=== PATIENT | male | born 1955 | race Caucasian/White ===

== ENCOUNTER 2016-07-23 | Outpatient (CLI) | payer MEDICARE, MEDICAID | END 2016-07-23 16:19 | disposition critical access hospital (66) | DX: M54.5 Low back pain (principal) | CPT/HCPCS: A0425; A0429 ==

== ENCOUNTER 2016-07-23 16:42 | Emergency (ER) | payer MEDICARE, MEDICAID ==
[2016-07-23] MEDS ORDERED: DEXAMETHASONE 10 MG/ML VIAL IVP ONE (17:54)
[2016-07-23] MEDS ORDERED: ACETAMINOPHEN 1,000 MG/100 ML 100 ML IV STA (17:54)
[2016-07-23] MEDS ORDERED: DEXAMETHASONE 10 MG/ML VIAL ONE (18:28)
[2016-07-23] MEDS ORDERED: ACETAMINOPHEN 1,000 MG/100 ML 100 ML IV ONE (18:28)
== END 2016-07-23 19:45 | disposition home or self-care (01) ==
DX: M54.5 Low back pain (principal); G89.29 Other chronic pain; R07.9 Chest pain, unspecified; I25.10 Atherosclerotic heart disease of native coronary artery without angina pectoris; K21.9 Gastro-esophageal reflux disease without esophagitis; F17.200 Nicotine dependence, unspecified, uncomplicated
CPT/HCPCS: 36415; 71010; 80053; 83690; 84484; 85025; 93005; 93010; 96374; 96375; 99283; 99284; J0131

== ENCOUNTER 2016-10-11 08:00 | Outpatient (CLI) | payer MEDICARE, MEDICAID | END 2016-10-11 08:01 | DX: R07.89 Other chest pain (principal) ==

== ENCOUNTER 2016-10-11 14:45 | Outpatient (CLI) | payer MEDICAID, MEDICARE | END 2016-10-11 15:00 | disposition home or self-care (01) | DX: R07.9 Chest pain, unspecified (principal) ==

== ENCOUNTER 2016-11-24 10:40 | Emergency (ER) | payer MEDICARE, MEDICAID ==
[2016-11-24] MEDS ORDERED: LIDOCAINE PATCH 5% TOP STA (12:10)
[2016-11-24] MEDS ORDERED: ACETAMINOPHEN 500 MG TABLET PO STA (12:12)
[2016-11-24] MEDS ORDERED: LIDOCAINE PATCH 5% TOP ONE (12:13)
[2016-11-24] MEDS ORDERED: ACETAMINOPHEN 500 MG TABLET PO ONE (12:13)
--- NOTE | 2016-11-24 12:26 | ED Physician Documentation ---
History of Present Illness - Stated complaint Stated Complaint: BACK PX - Chief complaint Chief Complaint: Back Pain - Additonal information Additional information: hx from pt and from call to his prior pain clinic 61 male long hx back pain since working for [employer] s/p diskectomy in 2001 chronic back pain and chronic L sided numbness to ER with back pain and out of meds - pain is same as his chronic pain, no new numbness or weakness, no incont, no abd pain pt tells me he cannot go to the pain clinic due to transportation but when i call the pain clinic and spoke to Dr Burch she advises that he was dismissed from the clinic late Jul or August due to neg tox screens indicating misuse or diversion of narcotics - pt was referred back to his [facility] who also declined to rx narcotics, and pt has been to out ER once before and advised that we cannot rx narcotics for this issue pt tells me that he has a hx of CAD and that if he does not get narcotics he will have a heart attack - he is not having chest pain right now Review of Systems Constitutional: denies: Fever, Chills Cardiac: denies: Chest pain / pressure Respiratory: denies: Dyspnea GI: denies: Abdominal Pain : denies: Incontinent Musculoskeletal: reports: Back pain Neurologic: reports: Numbness (L side of body not new). denies: Focal weakness Endocrine: denies: Easy bruising / bleeding Immunocompromised: denies: Immunocompromised PD PAST MEDICAL HISTORY - Past Medical History Cardiovascular: Coronary artery disease Respiratory: None Neuro: None Endocrine/Autoimmune: None GI: GERD : None HEENT: None Psych: None Musculoskeletal: Chronic back pain Derm: None - Past Surgical History Past Surgical History: Yes Ortho: Spine surgery Cardiovascular: Coronary stent - Present Medications Home Medications: Ambulatory Orders Medication Instructions Recorded Confirmed Aspirin [Bakari Chewable Aspirin] 81 mg ORAL DAILY 01/17/14 09/20/15 Clopidogrel Bisulfate [Plavix] 0 mg ORAL DAILY 01/17/14 09/20/15 Lisinopril [Zestril] 5 mg ORAL DAILY 01/17/14 01/17/14 Metoprolol Succinate [Toprol Xl] 25 mg ORAL BID 01/17/14 01/17/14 Morphine ER 2 tab ORAL BID 01/17/14 01/17/14 Nitroglycerin 0.4 mg SL Q5MIN PRN 01/17/14 01/17/14 Oxycodone HCl/Acetaminophen 1 tab ORAL Q6HR PRN 01/17/14 01/17/14 [Oxycodone-Acetaminophen 10-325] Famotidine [Pepcid] 20 mg PO BID #60 tablet 09/20/15 Atorvastatin [Lipitor] 40 mg QPM 11/24/16 11/24/16 Lidocaine Patch 5% [Lidoderm Patch] 1 each TOP DAILY PRN #10 patch 11/24/16 - Allergies Allergies/Adverse Reactions: Allergies Allergy/AdvReac Type Severity Reaction Status Date / Time No Known Drug Allergies Allergy Verified 11/24/16 10:51 - Social History Does the pt smoke?: Yes Smoking Status: Current every day smoker - Immunizations Immunizations are current?: No Immunizations: TDAP >10years/unknown PD ED PE NORMAL - Vitals Vital signs reviewed: Yes - Cardiac Cardiac: RRR - Respiratory Respiratory: No respiratory distress, Clear bilaterally - Abdomen Abdomen: Soft, Non tender, Other (no pulsatile mass) - Back Back: No spinal TTP (no redness swelling warmth, lumbar scar, diffuse TTP and limited ROM) - Derm Derm: Normal color - Neuro Neuro: No motor deficit (hip flex knee ext foot dorsi plantar and great toe ext 5/5 though pain does limit effort, no clonus, denies incont and saddle anesthesia) Results - Vitals Vitals: Vital Signs - 24 hr 11/24/16 11/24/16 10:48 11:23 Temperature 36.7 C Heart Rate 71 67 Respiratory 19 18 Rate Blood Pressure 159/104 H O2 Saturation 98 98 Oxygen O2 Source Room air PD MEDICAL DECISION MAKING - ED course ED course: spoke to [facility] Burch - pt was dismissed from their practice due to neg tox screens indicating misuse or diversion next closest pain clinic would be [facility] for pain management in [place] unfortunately there is very little I [facility] - he does not have an apparent acute emergency though he is in pain will rx lidocaine patches and suggest pt ask PMD for a referral to the other pain clinic Departure - Departure Disposition: 01 Home, Self Care Clinical Impression: Back pain Qualifiers: Back pain location: low back pain Chronicity: chronic Back pain laterality: unspecified Sciatica presence: without sciatica Qualified Code(s): M54.5 - Low back pain; G89.29 - Other chronic pain Condition: Fair Instructions: ED Low Back Pain Injury, ED Chronic Pain Management Follow-Up: [facility] [Provider Group] Prescriptions: Lidocaine Patch 5% [Lidoderm Patch] 1 each TOP DAILY PRN #10 patch PRN Reason: Pain Comments: I spoke to Dr Burch at the [facility] and unfortunately you cannot be seen there any more The next closest pain clinic is [facility] - please ask your PMD for a referral. The emergency department cannot prescribe narcotics for chronic pain. I did prescribed lidocaine patches to help ease your discomfort. I am sorry there is not more I can do for you today Please follow up with your PMD And please get your blood pressure rechecked when you see your PMD - it was high today
[2016-11-24 12:37] VITALS: BP 152/95
== END 2016-11-24 12:53 | disposition home or self-care (01) ==
LOC: ED 10:40
DX: M54.5 Low back pain (principal); G89.29 Other chronic pain; R03.0 Elevated blood-pressure reading, without diagnosis of hypertension; I25.10 Atherosclerotic heart disease of native coronary artery without angina pectoris; Z95.5 Presence of coronary angioplasty implant and graft; Z79.02 Long term (current) use of antithrombotics/antiplatelets; Z79.82 Long term (current) use of aspirin; F17.200 Nicotine dependence, unspecified, uncomplicated
CPT/HCPCS: 99283; A9270

== ENCOUNTER 2017-01-25 17:17 | Outpatient (CLI) | payer MEDICARE, MEDICAID | END 2017-01-25 17:18 | disposition critical access hospital (66) | LOC: EMS 17:17 | PROVIDERS: ATTEND Surgery | DX: M54.5 Low back pain (principal) | CPT/HCPCS: A0425; A0429 ==

== ENCOUNTER 2017-01-25 17:39 | Emergency (ER) | payer MEDICARE, MEDICAID ==
[2017-01-25] MEDS ORDERED: PROMETHAZINE 25 MG/1 ML VIAL IM STA (19:09)
[2017-01-25] MEDS ORDERED: HYDROmorphone 1 MG/ML SYRINGE IM STA (19:09)
[2017-01-25] MEDS ORDERED: HYDROmorphone 1 MG/ML SYRINGE ONE ×3 (19:33→21:19)
[2017-01-25] MEDS ORDERED: PROMETHAZINE 25 MG/1 ML VIAL ONE (19:33)
[2017-01-25] MEDS ORDERED: SODIUM CHLORIDE FLUSH 0.9% 10 ML SYRINGE IVP ONE ×2 (19:34→21:20)
[2017-01-25 20:31] LABS: BILIRUBIN,URINE NEGATIVE (NEGATIVE)
[2017-01-25 20:43] LABS: UA CHARGE (STRIP ONLY) YES; UR CULTURE IF IND NOT INDICATED
[2017-01-25] MEDS ORDERED: HYDROmorphone 1 MG/ML SYRINGE IVP STA (21:10)
[2017-01-25] MEDS ORDERED: DEXAMETHASONE 10 MG/ML VIAL IVP STA (21:10)
[2017-01-25] MEDS ORDERED: diazePAM INJ 5 MG/ML SYRINGE IVP STA (21:11)
[2017-01-25] MEDS ORDERED: DEXAMETHASONE 10 MG/ML VIAL ONE (21:20)
[2017-01-25] MEDS ORDERED: diazePAM INJ 5 MG/ML SYRINGE ONE (21:20)
[2017-01-25] MEDS ORDERED: oxyCODONE/ACET 5/325 Prepack 4 PO STA (22:32)
--- NOTE | 2017-01-25 22:35 | ED Physician Documentation ---
PD HPI BACK PAIN - Stated complaint Stated Complaint: BACK PX - Chief complaint Chief Complaint: Back Pain - History obtained from History obtained from: Patient - History of Present Illness Timing - onset: Today Timing - details: Still present Location: Lower, Left Quality: Pain Associated symptoms: Numbness. No: Fever, Weakness, Incontinent of urine Worsened by: Movement, Lifting Similar symptoms before: Diagnosis (Previously has been a pain clinic patient with chronic back pain.) - Additional information Additional information: The patient is a 61-year-old male who presents with lower back pain radiating down his left leg. The exacerbation of pain started today when he bent over in the shower. He denies any other recent back injury. He denies fever or urinary incontinence. He has a long history of low back pain since a back injury in 2004, and is status post lumbar surgery. Previously has been a pain clinic patient, receiving morphine and Percocet, but has not been prescribed pain medication for the past 6 months. Review of Systems Constitutional: denies: Fever Nose: denies: Congestion Cardiac: denies: Chest pain / pressure Respiratory: denies: Dyspnea, Cough GI: denies: Abdominal Pain, Nausea, Vomiting : denies: Dysuria, Incontinent Skin: denies: Rash Musculoskeletal: reports: Back pain Neurologic: reports: Numbness (Chronic sensory deficit in both lower extremities.). denies: Focal weakness, Headache PD PAST MEDICAL HISTORY - Past Medical History Cardiovascular: Coronary artery disease, [place] Respiratory: None Neuro: None Endocrine/Autoimmune: None GI: GERD : None HEENT: None Psych: None Musculoskeletal: Chronic back pain Derm: None - Past Surgical History Past Surgical History: Yes Ortho: Spine surgery Cardiovascular: Coronary stent - Present Medications Home Medications: Ambulatory Orders Medication Instructions Recorded Confirmed Aspirin [Bakari Chewable Aspirin] 81 mg ORAL DAILY 01/17/14 01/25/17 Clopidogrel Bisulfate [Plavix] 0 mg ORAL DAILY 01/17/14 01/25/17 Lisinopril [Zestril] 5 mg ORAL DAILY 01/17/14 01/25/17 Metoprolol Succinate [Toprol Xl] 25 mg ORAL BID 01/17/14 01/25/17 Morphine ER 2 tab ORAL BID 01/17/14 01/25/17 Nitroglycerin 0.4 mg SL Q5MIN PRN 01/17/14 01/25/17 Oxycodone HCl/Acetaminophen 1 tab ORAL Q6HR PRN 01/17/14 01/25/17 [Oxycodone-Acetaminophen 10-325] Famotidine [Pepcid] 20 mg PO BID #60 tablet 09/20/15 01/25/17 Atorvastatin [Lipitor] 40 mg QPM 11/24/16 01/25/17 Lidocaine Patch 5% [Lidoderm Patch] 1 each TOP DAILY PRN #10 patch 11/24/1607/13 Cyclobenzaprine [Flexeril] 10 mg PO TID PRN #20 tablet 01/25/17 oxyCODONE/ACET 5/325 [Percocet 5 1 - 2 tab PO Q4-6H PRN #20 tablet 01/25/17 mg/325 mg] - Allergies Allergies/Adverse Reactions: Allergies Allergy/AdvReac Type Severity Reaction Status Date / Time No Known Drug Allergies Allergy Verified 11/24/16 10:51 - Social History Does the pt smoke?: Yes Smoking Status: Current every day smoker - Immunizations Immunizations are current?: No Immunizations: TDAP >10years/unknown PD ED PE NORMAL - Vitals Vital signs reviewed: Yes (normal) - General General: Alert and oriented X 3, Well developed/nourished, Other (Somewhat difficult to understand because of strong Eastern accent.) - HEENT HEENT: Atraumatic, EOMI, Pharynx benign - Neck Neck: Supple, no meningeal sign, No bony TTP, No JVD - Cardiac Cardiac: RRR, No murmur - Respiratory Respiratory: No respiratory distress, Clear bilaterally - Abdomen Abdomen: Soft, Non tender - Back Back: No CVA TTP, Other (There is tenderness to palpation in the paralumbar region bilaterally, more on the left than the right.) - Derm Derm: No rash - Extremities Extremities: No edema, No calf tenderness / cord - Neuro Neuro: Alert and oriented X 3, No motor deficit, No sensory deficit (Decreased light touch sensation in the lower extremities bilaterally, although it does not seem to follow a dermatomal pattern. Sacral sensation is intact.) Results - Vitals Vitals: Oxygen O2 Source Room air - Labs Labs: Laboratory Tests 01/25/17 20:12 Urine Color YELLOW Urine Clarity CLEAR Urine pH 6.0 Ur Specific [place] <=1.005 Urine Protein NEGATIVE Urine Glucose (UA) NEGATIVE Urine Ketones NEGATIVE Urine Occult Blood NEGATIVE Urine Nitrite NEGATIVE Urine Bilirubin NEGATIVE Urine Urobilinogen 0.2 (NORMAL) Ur Leukocyte Esterase NEGATIVE Ur Microscopic Review NOT INDICATED Urine Culture Comments NOT INDICATED PD MEDICAL DECISION MAKING - ED course Complexity details: reviewed old records, reviewed results, re-evaluated patient , considered differential, d/w patient, d/w family ED course: The patient's presentation is significant for an acute exacerbation of recurrent low back pain. His presentation does not suggest epidural abscess, acute spinal stenosis, or cauda equina syndrome. Treatment in the emergency department included administration of hydromorphone 2 mg IM with Phenergan 12.5 mg IM. Because his symptoms did not significantly improve an IV was established , and dexamethasone 10 mg was administered IV, along with hydromorphone 1 mg IV , and diazepam 5 mg IV. This did significantly improve the patient's discomfort. He is being discharged with prescriptions for Percocet and for Flexeril. 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 Departure - Departure Disposition: 01 Home, Self Care Clinical Impression: Back pain Qualifiers: Back pain location: low back pain Chronicity: acute Back pain laterality: left Sciatica presence: without sciatica Qualified Code(s): M54.5 - Low back pain Condition: Stable Instructions: ED Low Back Pain Injury Follow-Up: [facility] [Provider Group] [facility] [Provider Group] [facility] [Provider Group] Prescriptions: Cyclobenzaprine [Flexeril] 10 mg PO TID PRN #20 tablet PRN Reason: Spasms oxyCODONE/ACET 5/325 [Percocet 5 mg/325 mg] 1 - 2 tab PO Q4-6H PRN #20 tablet PRN Reason: Pain Comments: Apply ice pack to your lower back intermittently for the next 3 or 4 days. You can use ibuprofen, up to 800 mg 3 times daily for the anti-inflammatory effect. You can use Percocet as prescribed if needed for pain. You can use Flexeril as prescribed if needed for muscle spasm. Let pain be your guide to activity level. Follow-up with primary physician within 1-2 weeks. Call to schedule an appointment. Return to the emergency department if you develop increasing back pain, increasing numbness or weakness, urinary incontinence, or otherwise worsening symptoms. Discharge Date/Time: 01/25/17 23:44
[2017-01-25] MEDS ORDERED: oxyCODONE/ACET 5/325 Prepack 4 PO ONE (22:49)
[2017-01-25 22:54] VITALS: BP 114/75
== END 2017-01-25 23:44 | disposition home or self-care (01) ==
LOC: EDUNIT# → ED 17:39
DX: M54.5 Low back pain (principal); I25.10 Atherosclerotic heart disease of native coronary artery without angina pectoris; G89.29 Other chronic pain; F17.200 Nicotine dependence, unspecified, uncomplicated; Z95.5 Presence of coronary angioplasty implant and graft; Z79.82 Long term (current) use of aspirin
CPT/HCPCS: 81003; 96372; 96374; 96375; 99284; J1170; 81001; 87086

== ENCOUNTER 2017-03-02 12:36 | Outpatient (CLI) | payer MEDICARE, MEDICAID | END 2017-03-02 12:37 | disposition critical access hospital (66) | LOC: EMS 12:36 | PROVIDERS: ATTEND Surgery | DX: M54.5 Low back pain (principal) | CPT/HCPCS: A0425; A0429 ==

== ENCOUNTER 2017-03-02 12:57 | Emergency (ER) | payer MEDICARE, MEDICAID ==
--- NOTE | 2017-03-02 12:59 | ED Physician Documentation ---
PD HPI BACK PAIN - Stated complaint Stated Complaint: BACK PX - History obtained from History obtained from: Patient, EMS - History of Present Illness Timing - onset: How many days ago (The patient says he has had an increase over baseline of his back pain for the last several days. He has no noted injury to it currently. He has had prior back pain since 2004 from a work injury he says. He has had couple of surgeries on his back since that time. He does have chronic numbness in the right leg from the surgeries and the nerve impingement prior to that. He has also some numbness in the left leg. He states he is now having pain down the left lateral side of the leg into the dorsolateral part of the foot. He denies any noted weakness of it. He has not had any bowel or bladder dysfunction. He denies any rash or sores. He has not had any skin sores. Denies any fever. He has had similar exacerbations with ER visits in end of January and also in October and prior to that June. He had been a patient of the [facility] and also the [facility] pain clinic. He states he does not like the [facility] clinic. He does not get any narcotic pain medicines prescribed regularly at this time. He does get his blood pressure and cholesterol medicines from the [facility] apparently.) Timing - duration: Days Timing - details: Gradual onset, Still present, Waxing and waning Location: Lower, Left Quality: Pain, Spasm Associated symptoms: Numbness (chronic right lateral leg and foot; the past few months left lateral foot and lower leg.). No: Fever, Weakness, Incontinent of urine, Hematuria Improves with: Rest Worsened by: Movement Contributing factors: Twisting. No: Trauma, IVDA Similar symptoms before: Diagnosis (lumbar disc problems and prior lumbar back surgeries x 2 years ago.) Recently seen: Emergency Dept (1 month ago for similar. Denies recent visit with PCP.) Review of Systems Constitutional: denies: Fever, Chills, Myalgias Nose: denies: Rhinorrhea / runny nose, Congestion Throat: denies: Sore throat Cardiac: denies: Chest pain / pressure, Palpitations, Pedal edema, Calf pain Respiratory: denies: Cough GI: denies: Abdominal Pain, Nausea, Vomiting, Diarrhea : denies: Dysuria, Incontinent Skin: denies: Rash, Lesions Neurologic: reports: Numbness. denies: Focal weakness, Altered mental status, Headache PD PAST MEDICAL HISTORY - Past Medical History Cardiovascular: Coronary artery disease, [place] Respiratory: None Neuro: None Endocrine/Autoimmune: None GI: GERD : None HEENT: None Psych: None Musculoskeletal: Chronic back pain Derm: None - Past Surgical History Past Surgical History: Yes Ortho: Spine surgery Cardiovascular: Coronary stent - Present Medications Home Medications: Ambulatory Orders Medication Instructions Recorded Confirmed Aspirin [Bakari Chewable Aspirin] 81 mg ORAL DAILY 01/17/14 03/02/17 Clopidogrel Bisulfate [Plavix] 0 mg ORAL DAILY 01/17/14 03/02/17 Lisinopril [Zestril] 5 mg ORAL DAILY 01/17/14 03/02/17 Metoprolol Succinate [Toprol Xl] 25 mg ORAL BID 01/17/14 03/02/17 Nitroglycerin 0.4 mg SL Q5MIN PRN 01/17/14 03/02/17 Famotidine [Pepcid] 20 mg PO BID #60 tablet 09/20/15 03/02/17 Atorvastatin [Lipitor] 40 mg QPM 11/24/16 03/02/17 Cyclobenzaprine [Flexeril] 10 mg PO TID PRN #20 tablet 01/25/17 03/02/17 Dexamethasone [Decadron] 4 mg PO DAILY #5 tablet 03/02/17 Diazepam 5 mg PO TID PRN #20 tablet 03/02/17 Oxycodone HCl/Acetaminophen 1 each PO TID PRN #25 tablet 03/02/17 [Percocet 7.5-325 mg Tablet] - Allergies Allergies/Adverse Reactions: Allergies Allergy/AdvReac Type Severity Reaction Status Date / Time No Known Drug Allergies Allergy Verified 11/24/16 10:51 - Social History Does the pt smoke?: Yes Smoking Status: Current every day smoker - Immunizations Immunizations are current?: No Immunizations: TDAP >10years/unknown PD ED PE NORMAL - Vitals Vital signs reviewed: Yes - General General: Alert and oriented X 3, Well developed/nourished, Other (appears in discomfort and guarding motion of the low back. ) - Cardiac Cardiac: RRR, No murmur - Respiratory Respiratory: Clear bilaterally - Abdomen Abdomen: Normal bowel sounds, Soft, Non tender, Non distended - Back Back: No CVA TTP, Other (no rash nor sores; tender in upper to mid lumbar area both sides, but more on left sided muscles. ) - Derm Derm: Normal color, Warm and dry, No rash - Extremities Extremities: No tenderness to palpate, Normal ROM s pain, No edema, No calf tenderness / cord - Neuro Neuro: No motor deficit, Normal speech, Other (2+DTRs at knees and ankles. Decreased sensation to touch and pain lateral and anterior right lower leg and dorsum/side foot. Less sensation to touch lateral lower leg and lateral foot, but sensation to pinprick present. ) Results - Vitals Vitals: Oxygen O2 Source Room air PD MEDICAL DECISION MAKING - ED course Complexity details: reviewed old records, considered differential (dermatomal symptoms left lower leg, c/w sciatica, but no red flags to suggest need for emergent MRI. To see PCP and get referral. He says he cannot do closed MRIs and needs open MRI due to claustrophobia. ), d/w patient Departure - Departure Disposition: 01 Home, Self Care Clinical Impression: Back pain Qualifiers: Back pain location: low back pain Chronicity: acute Back pain laterality: left Sciatica presence: with sciatica Sciatica laterality: sciatica of left side Qualified Code(s): M54.42 - Lumbago with sciatica, left side Condition: Stable Record reviewed to determine appropriate education?: Yes Instructions: ED Sciatica Follow-Up: [facility] [Provider Group] Prescriptions: Dexamethasone [Decadron] 4 mg PO DAILY #5 tablet Diazepam 5 mg PO TID PRN #20 tablet PRN Reason: Spasms Oxycodone HCl/Acetaminophen [Percocet 7.5-325 mg Tablet] 1 each PO TID PRN #25 tablet PRN Reason: Pain Comments: Make an appointment with your primary care for follow-up in the next week or so. Call today for an appointment. Decadron anti-inflammatory daily for 5 more days. Use diazepam as needed for muscle spasms. Percocet if needed for pains. Heat and gentle stretching for the low back. Follow-up with your primary care for possible physical therapy. They could also consider whether imaging, such as MRI, would be useful. Discharge Date/Time: 03/02/17 15:40
[2017-03-02] MEDS ORDERED: HYDROmorphone 1 MG/ML SYRINGE IM STA (13:49)
[2017-03-02] MEDS ORDERED: KETOROLAC 60 MG/2 ML VIAL IM STA (13:49)
[2017-03-02] MEDS ORDERED: diazePAM 5 MG TABLET PO STA (13:49)
[2017-03-02] MEDS ORDERED: ONDANSETRON ODT 4 MG TABLET TL STA (13:49)
[2017-03-02] MEDS ORDERED: HYDROmorphone 1 MG/ML SYRINGE ONE ×2 (13:59)
[2017-03-02] MEDS ORDERED: diazePAM 5 MG TABLET PO ONE (14:00)
[2017-03-02] MEDS ORDERED: KETOROLAC 60 MG/2 ML VIAL ONE (14:00)
[2017-03-02] MEDS ORDERED: ONDANSETRON ODT 4 MG TABLET ONE (14:00)
[2017-03-02 15:08] VITALS: BP 144/96
[2017-03-02] MEDS ORDERED: oxyCOD/ACETAMIN 5 MG/325 MG TABLET PO STA (15:29)
[2017-03-02] MEDS ORDERED: oxyCOD/ACETAMIN 5 MG/325 MG TABLET PO ONE (15:37)
== END 2017-03-02 15:40 | disposition home or self-care (01) ==
LOC: EDUNIT# → ED 12:57
DX: M54.42 Lumbago with sciatica, left side (principal); I25.10 Atherosclerotic heart disease of native coronary artery without angina pectoris; I25.2 Old myocardial infarction; K21.9 Gastro-esophageal reflux disease without esophagitis; Z79.82 Long term (current) use of aspirin; F17.200 Nicotine dependence, unspecified, uncomplicated
CPT/HCPCS: 96372; 99283; A9270; J1170; Q0162

== ENCOUNTER 2017-03-17 13:38 | Outpatient (CLI) | payer MEDICARE, MEDICAID | END 2017-03-17 13:39 | disposition critical access hospital (66) | LOC: EMS 13:38 | PROVIDERS: ATTEND Surgery | DX: R07.9 Chest pain, unspecified (principal) | CPT/HCPCS: A0425; A0427 ==

== ENCOUNTER 2017-03-17 13:57 | Observation (INO) | payer MEDICARE, MEDICAID ==
--- NOTE | 2017-03-17 14:10 | ED Physician Documentation ---
PD HPI CHEST PAIN - Stated complaint Stated Complaint: CP - Chief complaint Chief Complaint: Cardiac - History obtained from History obtained from: Patient - History of Present Illness Pain level max: 8 Pain level now: 8 Quality: Pressure, Aching, Pain Location: Substernal Radiation: Other (Nonradiating) Improved by: Nothing Worsened by: Movement, Palpation Associated symptoms: No: Shortness of air, Diaphoresis, Nausea, Vomiting, Feeling faint / dizzy, General Weakness, Palpitations, Cough Similar symptoms before: Diagnosis (Acute [place]) Recently seen: Not recently seen - Additional information Additional information: Patient is a 61-year-old male who presents to the emergency department with several hours of ongoing chest pain this morning. States that it is substernal , center of the chest, nonradiating. 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 He also states that his chronic back pain is "acting up". Does not have a primary care provider. Has not seen the pain clinic anymore. States he is out of his Percocet. Patient received aspirin, nitroglycerin and morphine from EMS without change in his pain. Normal twelve- lead EKG with EMS per report. No ST changes per EMS report. Last stent placement was 3 years ago at [facility]. Patient also states that he is not following up with cardiology and has not seen them for several years. Review of Systems Ten Systems: 10 systems reviewed and negative Constitutional: denies: Fever, Chills Ears: denies: Ear pain Nose: denies: Rhinorrhea / runny nose, Congestion Throat: denies: Sore throat Cardiac: reports: Chest pain / pressure Respiratory: denies: Cough GI: denies: Abdominal Pain, Nausea, Vomiting, Diarrhea Skin: denies: Rash Musculoskeletal: reports: Back pain (Chronic low back pain. No numbness or tingling. No loss of bowel or bladder control. Denies any IV drug use.). denies: Neck pain Neurologic: denies: Focal weakness, Numbness, Headache PD PAST MEDICAL HISTORY - Past Medical History Past Medical History: Yes Cardiovascular: Coronary artery disease, [place] Respiratory: None Neuro: None Endocrine/Autoimmune: None GI: GERD : None HEENT: None Psych: None Musculoskeletal: Chronic back pain Derm: None - Past Surgical History Past Surgical History: Yes Ortho: Spine surgery Cardiovascular: Coronary stent - Present Medications Home Medications: Ambulatory Orders Medication Instructions Recorded Confirmed Aspirin [Bakari Chewable Aspirin] 81 mg ORAL DAILY 01/17/14 03/02/17 Clopidogrel Bisulfate [Plavix] 0 mg ORAL DAILY 01/17/14 03/02/17 Lisinopril [Zestril] 5 mg ORAL DAILY 01/17/14 03/02/17 Metoprolol Succinate [Toprol Xl] 25 mg ORAL BID 01/17/14 03/02/17 Nitroglycerin 0.4 mg SL Q5MIN PRN 01/17/14 03/02/17 Famotidine [Pepcid] 20 mg PO BID #60 tablet 09/20/15 03/02/17 Atorvastatin [Lipitor] 40 mg QPM 11/24/16 03/02/17 Cyclobenzaprine [Flexeril] 10 mg PO TID PRN #20 tablet 01/25/17 03/02/17 Dexamethasone [Decadron] 4 mg PO DAILY #5 tablet 03/02/17 Diazepam 5 mg PO TID PRN #20 tablet 03/02/17 Oxycodone HCl/Acetaminophen 1 each PO TID PRN #25 tablet 03/02/17 [Percocet 7.5-325 mg Tablet] - Allergies Allergies/Adverse Reactions: Allergies Allergy/AdvReac Type Severity Reaction Status Date / Time No Known Drug Allergies Allergy Verified 03/17/17 14:06 - Social History Does the pt smoke?: Yes Smoking Status: Current every day smoker - Immunizations Immunizations are current?: No Immunizations: TDAP >10years/unknown PD ED PE NORMAL - Vitals Vital signs reviewed: Yes - General General: Alert and oriented X 3, No acute distress, Well developed/nourished - HEENT HEENT: PERRL, Moist mucous membranes - Neck Neck: Supple, no meningeal sign - Cardiac Cardiac: RRR, Strong equal pulses - Respiratory Respiratory: No respiratory distress, Clear bilaterally - Abdomen Abdomen: Soft, Non distended, Other (Tender to palpation epigastric without peritoneal signs. States that this is similar to his pain) - Back Back: Other (No midline tenderness to palpation over the T or L-spine. There is paraspinal tenderness, but no spasm.) - Derm Derm: Warm and dry, No rash - Extremities Extremities: No tenderness to palpate, Normal ROM s pain, No edema, Other ( normal bilateral lower extremity patellar and ankle jerk reflexes. 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, No motor deficit, No sensory deficit, Normal speech - Psych Psych: Normal mood, Normal affect Results - Vitals Vitals: Vital Signs - 24 hr 03/17/17 03/17/17 03/17/17 14:01 14:49 16:33 Temperature 36.2 C L Heart Rate 92 69 66 Respiratory 18 16 16 Rate Blood Pressure 117/95 H 119/84 H 136/77 H O2 Saturation 98 97 98 Oxygen O2 Source Room air - EKG (time done) 1408 Rate: Rate (enter#) (85) Rhythm: NSR [place]: Normal Intervals: Normal [place] Ischemia: Normal ST segments, Q waves (II, III, aVF) Computer interpretation: Agree with computer - Labs Labs: Laboratory Tests 03/17/17 03/17/17 03/17/17 14:18 14:18 14:18 WBC 7.5 RBC 5.28 Hgb 15.9 Hct 45.4 MCV 86.1 MCH 30.1 MCHC 35.0 RDW 14.1 Plt Count 182 MPV 7.6 Neut # 5.3 Lymph # 1.5 [place] # 0.6 Eos # 0.1 Baso # 0.0 Absolute Nucleated RBC 0.01 Nucleated RBCs 0.1 Sodium 135 Potassium 4.0 Chloride 100 L Carbon Dioxide 21 Anion Gap 14.0 H BUN 9 Creatinine 0.9 Estimated GFR (MDRD) 86 L Glucose 113 H Calcium 9.4 Total Bilirubin 1.8 H AST 57 H ALT 73 H Alkaline Phosphatase 79 Troponin I < 0.04 Total Protein 7.3 Albumin 4.3 Globulin 3.0 Albumin/Globulin Ratio 1.4 Lipase 42 - Rads (name of study) cxr Radiology: Prelim report reviewed, EMP read contemporaneously, See rad report ( No acute cardiopulmonary disease seen. ) PD MEDICAL DECISION MAKING - ED course Complexity details: reviewed old records, reviewed results, re-evaluated patient , considered differential (No ST elevation [place], no aortic dissection, no PE, no tension pneumothorax, no aortic aneurysm), d/w patient, d/w family ED course: Patient is a 61-year-old male who presents to the emergency department with several hours of chest pain. Resolved with Toradol in the emergency department , but given his significant cardiac history, Will admit the patient for rule out [place]. He had some epigastric pain and mildly elevated LFTs, no acute findings on CT scan. Has chronic unchanged back pain. He does not follow-up with PCP, pain management or cardiology, and therefore do not feel that narcotics are warranted in this case. Discussed the case with the hospitalist who accepts. This document was made in part using voice recognition software. While efforts are made to proofread this document, sound alike and grammatical errors may occur. Departure - Departure Disposition: ED Place in Observation Clinical Impression: Chest pain Qualifiers: Chest pain type: unspecified Qualified Code(s): R07.9 - Chest pain, unspecified Back pain Qualifiers: Back pain location: low back pain Chronicity: chronic Back pain laterality: bilateral Sciatica presence: without sciatica Qualified Code(s): M54.5 - Low back pain Condition: Stable Discharge Date/Time: 03/17/17 17:36
[2017-03-17 14:23] LABS: BASOPHILS % (AUTO) 0.5 %; EOSINOPHILS # (AUTO) 0.1 10^3/uL (0.0-0.7); EOSINOPHILS % (AUTO) 1.3 %; HCT - HEMATOCRIT 45.4 % (42.0-52.0); HGB - HEMOGLOBIN 15.9 g/dL (14.0-18.0); LYMPHOCYTES # (AUTO) 1.5 10^3/uL (1.5-3.5); LYMPHOCYTES % (AUTO) 20.1 %; MEAN CORPUSCULAR HEMOGLOBIN 30.1 pg (27.0-31.0); MEAN CORPUSCULAR VOLUME 86.1 fL (80.0-94.0); MEAN PLATELET VOLUME 7.6 fL (7.4-11.4); MONOCYTES # (AUTO) 0.6 10^3/uL (0.0-1.0); MONOCYTES % (AUTO) 8.3 %; NEUTROPHILS # (AUTO) 5.3 10^3/uL (1.5-6.6); NEUTROPHILS % (AUTO) 69.8 %; NUCLEATED RED BLOOD CELLS AUTO 0.1 /100WBC; RED BLOOD COUNT 5.28 10^6/uL (4.70-6.10); RED CELL DISTRIBUTION WIDTH 14.1 % (12.0-15.0); UNCORRECTED WHITE BLOOD COUNT 7.5 x10^3/uL; WHITE BLOOD COUNT 7.5 x10^3/uL (4.8-10.8)
[2017-03-17 14:34] LABS: ALBUMIN/GLOBULIN RATIO 1.4 (1.0-2.2); BILIRUBIN,TOTAL 1.8 mg/dL (0.2-1.0); CALCIUM 9.4 mg/dL (8.5-10.3); CREATININE 0.9 mg/dL (0.6-1.2); TOTAL PROTEIN 7.3 g/dL (6.7-8.2)
--- NOTE | 2017-03-17 14:41 | XRAY Preliminary Report ---
Exam: XR Chest 1 View IMPRESSION: No acute cardiopulmonary disease seen. [facility] SITE ID: [id number]
--- NOTE | 2017-03-17 14:44 | XRAY Report ---
EXAM: CHEST RADIOGRAPHY EXAM DATE: 03/17/2017 02:30 PM. CLINICAL HISTORY: Chest pain. COMPARISON: Chest 07/23/2016. TECHNIQUE: 1 view. FINDINGS: Lungs/Pleura: No focal opacities evident. No pleural effusion. No pneumothorax. Mediastinum: Within exam limitations, cardiomediastinal contour is normal. Other: Chronic left clavicle fracture appears unchanged. IMPRESSION: No acute cardiopulmonary disease seen. [facility] Referring Provider Line: [phone] SITE ID: [id number]
[2017-03-17] MEDS ORDERED: IOPAMIDOL-300 100 ML VIAL ONE (14:59)
[2017-03-17] MEDS ORDERED: KETOROLAC 60 MG/2 ML VIAL IVP STA (15:14)
[2017-03-17] MEDS ORDERED: KETOROLAC 30 MG/ML VIAL ONE (15:21)
[2017-03-17] MEDS ORDERED: IOPAMIDOL-300 100 ML VIAL IVP ONE (15:50)
--- NOTE | 2017-03-17 16:06 | CT Preliminary Report ---
Exam: CT Abdomen/Pelvis W/ IMPRESSION: 1. Fatty liver. 2. Mild diverticulosis without diverticulitis or other acute bowel abnormality. 3. Fat-containing umbilical and bilateral inguinal hernias noted. [facility] SITE ID: [id number]
--- NOTE | 2017-03-17 16:08 | CT Report ---
EXAM: CT ABDOMEN AND PELVIS EXAM DATE: 03/17/2017 03:53 PM. CLINICAL HISTORY: Epigastric abdomen pain. COMPARISONS: None. TECHNIQUE: Routine helical CT imaging was performed through the abdomen and pelvis. IV contrast: 100 cc of Isovue-300. Enteric contrast: No. Reconstructions: Coronal and sagittal. In accordance with CT protocol optimization, one or more of the following dose reduction techniques w ere utilized for this exam: automated exposure control, adjustment of mA and/or KV based on patient s ize, or use of iterative reconstructive technique. FINDINGS: Lung Bases: Coronary artery calcification noted, otherwise unremarkable. Liver: Diffuse low density noted. Gallbladder/Bile Ducts: Unremarkable. Spleen: Normal. Pancreas: Normal. Adrenal Glands: Normal. Kidneys: Normal. No masses or hydronephrosis. Peritoneal Cavity/Bowel: Mild diverticulosis. No free fluid, free air or adenopathy. No masses or acu te inflammatory process. The appendix is well visualized and normal. Pelvic Organs: Prostate and bladder are unremarkable. Vasculature: No aortic enlargement. Mild atherosclerotic calcification. Common celiac/SMA origin note d. Bones: Degenerative disk disease at L4-L5 and L5-S1. Other: Fat-containing umbilical and bilateral inguinal hernias noted. IMPRESSION: 1. Fatty liver. 2. Mild diverticulosis without diverticulitis or other acute bowel abnormality. 3. Fat-containing umbilical and bilateral inguinal hernias noted. [facility] Referring Provider Line: [phone] SITE ID: [id number]
[2017-03-17] MEDS ORDERED: ONDANSETRON ODT 4 MG TABLET TL PRN (17:02)
[2017-03-17] MEDS ORDERED: SODIUM CHLORIDE FLUSH 0.9% 10 ML SYRINGE IVP PRN (17:02)
[2017-03-17] MEDS ORDERED: ONDANSETRON 4 MG/2 ML VIAL IVP PRN (17:02)
[2017-03-17] MEDS ORDERED: NITROGLYCERIN SL 0.4 MG TABLET SL PRN (17:04)
[2017-03-17] MEDS ORDERED: diazePAM 5 MG TABLET PO PRN (17:06)
[2017-03-17] MEDS: CYCLOBENZAPRINE 10 MG TABLET PO PRN (18:43)
--- NOTE | 2017-03-17 19:46 | HISTORY & PHYSICAL EXAMINATION ---
DATE OF ADMISSION: 03/17/2017 PRIMARY CARE PROVIDER: None. ADMITTING PROVIDER: Felisha Amaya MD. CHIEF COMPLAINT: Chest pain. The patient is currently in between providers. He moved to the [place] from [place] about 16 years ago for low income housing access. He has struggled with keeping a primary care provider. The most recent primary care provider may have discharged him from her practice because of not keeping his visits, a nd continued request for opiates. He says that he needs opiates. If he does not get his opiates that induces chest pain. His chest pain then induces heart attack. He has been without his medications for 10 days. He does know what the problem is. He asked for a refill at [facility] pharmacy and all his medica tions have not been filled but he has not found out why. There are statins, beta jamie, opiates, Fl exeril, benzodiazepine. He had coronary artery disease with "sudden " in the emergency room. Then in the ambulance on e way to the hospital. He thinks he was hospitalized at [facility] 3 years ago. 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 He woke up this morning around 6:30 in the morning with epigastric pain radiating to both sides of hi s chest. It made him nauseated, he took 2 aspirin, waited a bit and by 7 o'clock the pain was gone. A t 10 o'clock in the morning the pain came on, and he took another 4 aspirins. This time the pain was not going away and he came to the emergency room because he is frightened that he is having another h eart attack. Pain is nonradiating. It seems to start in the epigastrium and wrap around his abdomen. Associated wi th some mild nausea and belching. No diaphoresis. No shoulder pain, no jaw pain. No palpitations. No shortness of breath. By the time he got to the emergency room, it was gone. In the emergency room, he was evaluated by Dr. Klein. He presented around 2 in the afternoon. He is afebrile, normotensive, 98% on room air. He is a large Romanian white male in no acute distress with a flat affect. His initial troponins are less than 0.04. He is found to have an elevated bilirubin o f 1.8 with an AST 57, ALT 73. Dr. Klein did a CT of the abdomen for that and liver and gallbladder a re unremarkable. He does have a fatty liver and a fat containing umbilical and bilateral inguinal her nias. He is now placed in observation for rule out [place]. PAST MEDICAL HISTORY: 1. Coronary artery disease. He says he has 2 stents in his arteries. 2. Chronic back pain and neck pain for labor from L and I injuries. First was 1991. The second one 2004. The 1991 L and I resulted in surgery and September 1992. Most of his pain is in his back and lowe r legs, mainly on the left side. Everything seems numb on that side and the nerves burn and on fire. Lumbar spine MRI done 11/05/2013 shows thick mild degenerative changes and no clear evidence of why melissa dempsey is having radicular pain. He has frequent visits to the emergency room. Usually for pain medication injection. 3. Hypertension. 4. Hyperlipidemia. 5. Presbyopia. ALLERGIES: NO KNOWN DRUG ALLERGIES. MEDICATIONS: He ran out 10 days ago from [facility] pharmacy are: 1. Sublingual nitroglycerin. 2. Aspirin 81 mg daily. 3. Atorvastatin 40 mg daily. 4. Plavix 75 mg daily. 5. Metoprolol XL 25 mg b.i.d.. 6. Zestril 5 mg daily. 7. Diazepam 5 mg p.o. t.i.d. provided by Dr. Arias 03/02/2017. 8. Decadron [address] daily provided by Dr. Arias 03/02/2017. 9. Flexeril 10 mg p.o. t.i.d. provided by Dr. Melara 01/25/2017. 10. Famotidine 20 mg p.o. b.i.d. 08/2015. 11. Oxycodone with acetaminophen 325 1 tablet 3 times a day provided by Dr. Arias 03/02/2017. SOCIAL HISTORY: He was born in [facility] [facility]. for many years and his in 1993. At that time, they were living in the [facility] area. He moved to [place] when income became a p roblem and he needed to live in subsidized senior housing. He has not worked since March 2005 with his last injury working for [employer]. He has 1 step child and 6 children. Four of them live here in this [facility], 3 still live in [place]. 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 He started smoking at the age of 14, smoked less than half a pack per day and stopped smoking a little over a month ago. He has not drank for 15 years. He denies alcohol abuse. He denies use of pot , cocaine, heroin, LSD, speed. From activities of daily living perspective, he says he is still compl etely independent with regard to feeding himself, dressing himself. He does most of the cooking and c leaning in his house. He does not have a car so he relies on his girlfriend to drive him around. FAMILY HISTORY: He has not seen or spoken to his mother in so many years now that he does not know if she is alive or . Father at age 52 of lung cancer. One brother and one sister are still diane k in [place], and much like his mother he does not know if they are alive or because he has not talked to them. His children are all healthy without diabetes, hypertension, mental illness or substa nce abuse. REVIEW OF SYSTEMS: He constitutionally denies any unexpected weight changes, fevers, sweats, change i n appetite. ENT: He is starting to have more and more problems and reading glasses are not cutting it. He had not seen an eye doctor in a long time so he does not know if he has glaucoma or cataracts. He thinks he may be losing his hearing. He has dentures. No problems with swallowing. CARDIAC: Frequent episodes of chest pain. Seen in the emergency room several times. Has not had a str ess test in the last 3 years that he knows of. Denies edema, orthopnea. Atrial fibrillation, valvular heart disease history. PULMONARY: Denies emphysema, coughing, wheezing, chest congestion. GI: Denies any change in bowel habits, diarrhea, blood in his stool. GENITOURINARY: Denies frequency, nocturia or urgency, flank pain, hematuria. JOINTS: Everything hurts, but he shrugs his shoulders and says it is a part of aging. Nothing new, no thing worse than usual. No recent trauma. SKIN: Denies new lesions or rashes. PSYCHIATRIC: Gets depressed when he thinks about his life and the lack of choices and how stuck he fe els. CENTRAL NERVOUS SYSTEM: He says that he passed out and had seizures when he had a sudden 3 year s ago. Denies memory loss, has mild deafness, presbyopia. Has constant pain that seems to be neuropat hy on the left side of his body more than the right side of his body. Constant low back pain. PHYSICAL EXAMINATION: VITAL SIGNS: Temperature is 36.5, pulse is 65, blood pressure is 134/65, respirations 18, 98% on room air. GENERAL: He is a stocky, tall, middle aged white male with a starkey and mustache, looks stated age, in no acute distress and facial, affect is more of a muted, flat, almost anhedonic appearance. HEAD: Unremarkable other than lower dentures are missing and he said he left them at home. No facial asymmetry. Speech is normal. NECK: Supple. Shotty adenopathy. No goiter, no bruits. LUNGS: Clear in a brawl chest crackles, rhonchi, or wheezing. CARDIOVASCULAR: PMI is normally placed, but very faintly felt. Regular rate and rhythm. No murmurs, r ubs, or gallops. ABDOMEN: Hugely obese, soft. He is tender in the epigastrium and left upper quadrant area and down in to the left mid abdomen and left lower quadrant area. No rebound, no guarding. No masses palpable. EXTREMITIES: Well muscled, without clubbing, cyanosis, or edema. Has excellent hair distribution all the way down to his ankles without and no evidence of peripheral vascular disease. Good foot pulses. NEUROLOGIC: He is alert and oriented to person, place and time, appears to be slightly deaf. Can foll ow 2-step commands. He can sit up on his own with no tremors. No focal deficits. LABORATORIES: Sodium is 135, potassium 4, BUN 9, creatinine 0.9. Random glucose 113. Total bilirubin is 1.8. In June, he was 0.9, in September he was 1, and today 1.8. AST 57, ALT is 73. Troponin less th an 0.04. White cell count 7.5, hemoglobin 15.9, hematocrit 45, platelets 182. IMAGING: Chest x-ray is without acute cardiopulmonary process seen. EKG has sinus rhythm. Nondiagnost ic Q's in 3 and AVF. Early R-wave progression. When I look at his previous EKG from 10/11/2016 same E KG. ASSESSMENT/PLAN: 1. Substernal chest pain radiating bilaterally. On physical exam, he has left upper quadrant abdomina l pain. Differential diagnosis is angina from heart disease. He will be admitted to rule out [place]. Last enzyme test will be approximately 4:30 in the morning. I will then see if I can schedule him for an immediate stress test since this gentleman's not been evaluated since his last heart attack, blaine g to him, and he has multiple visits to the emergency room. He does not seem to followup with a [facility] care provider for unknown reasons. Suspect miscommunication. 2. Part of the differential diagnosis are the elevated liver enzymes, CT of the abdomen has been done . He denies alcohol abuse. MRCP in the morning. Hepatitis panel. 3. Hypertension. Resume his usual medications. 4. Hyperlipidemia. Resume his usual medications. 5. FULL CODE STATUS. 6. Deep venous thrombosis prophylaxis will be just ARMAND arredondo. JOB #: [id number] EXT JOB #:[id number]
[2017-03-17] MEDS ORDERED: ATORVASTATIN 40 MG TABLET PO SCH (21:00)
[2017-03-17] MEDS: SODIUM CHLORIDE FLUSH 0.9% 10 ML SYRINGE IVP SCH (21:14)
[2017-03-17] MEDS: oxyCOD/ACETAMIN 5 MG/325 MG TABLET PO PRN (21:14)
[2017-03-17] MEDS: FAMOTIDINE 20 MG TABLET PO SCH (21:16)
[2017-03-17] MEDS: METOPROLOL SUCCINATE 25 MG TABLET PO SCH (21:16)
[2017-03-18 04:15] LABS: CALCIUM 8.8 mg/dL (8.5-10.3)
[2017-03-18] MEDS: SODIUM CHLORIDE FLUSH 0.9% 10 ML SYRINGE IVP SCH (05:58)
[2017-03-18] MEDS: oxyCOD/ACETAMIN 5 MG/325 MG TABLET PO PRN (05:58)
--- NOTE | 2017-03-18 08:09 | Discharge Plan ---
Discharge Plan Disposition: 01 Home, Self Care Condition: Good Diet: Cardiac Activity Restrictions: No Restrictions Shower Restrictions: No Driving Restrictions: No Weight Bearing: Full Weight Instruction Topics: Heart Attack Warning Signs, ED Chest Pain Angina Stable Additional Instructions or Follow Up instructions: PLEASE CONTINUE TO TAKE ALL HOME MEDICATIONS PRESCRIBED. YOU WILL NEED TO TAKE YOUR BLOOD PRESSURE AND ASPIRIN PRESCRIBED. EAT A HEART HEALTHY DIET. YOU WILL NEED TO MONITOR YOUR SALT INTAKE. YOU NEED TO EAT A LOW FAT DIET. AVOID SODA AND LIMIT THE AMOUNT OF CAFFEINE. YOU WILL NEED TO SEE YOUR FAMILY DOCTOR SOON POSSIBLE AFTER DISCHARGE. YOU WILL NEED TO FOLLOWUP WITH THEM FOR REFERRAL FOR CARDIOLOGY. IF YOU HAVE A LIQUOR STORE MANAGER, YOU WILL NEED TO SCHEDULE AN APPOINTMENT TO BE SEEN WITHIN THE NEXT WEEK YOU WILL NEED TO GET DAILY EXERCISE. WALKING IS BEST AND BE SURE TO GET AT LEAST 20 MINUTES OF BRISK WALKING OR EXERCISE 3-5 DAYS A WEEK TO HELP KEEP THE HEART STRONG IF YOU SNORE, LET YOUR DOCTOR KNOW BECAUSE YOU MAY HAVE SLEEP APNEA AND WILL NEED A SLEEP STUDY. PLEASE RETURN TO THE ER IF SYMPTOMS REOCCUR OR YOU HAVE CHEST PAIN OR SHORTNESS OF BREATH THAT DOES NOT RESOLVE. No Smoking: If you smoke, Please STOP! Call for help. Follow-up with: Kareen Jonas ARNP [Primary Care Provider] -
--- NOTE | 2017-03-18 08:12 | DISCHARGE SUMMARY ---
Discharge Summary Admit Date: 03/17/17 Discharge Date: 03/18/17 Discharging Provider: UMA BLANKENSHIP APRN Code Status: Attempt Resuscitation Condition at Discharge: Good Discharge Disposition: 01 Home, Self Care Discharge Facility Name: HOME - DIAGNOSES Admission Diagnoses: 1. ACUTE CHEST PAIN WITH POSSIBLE CARDIAC ETIOLOGY 2. ACUTE ON CHRONIC BACK PAIN 3. CHRONIC OPIOD USAGE WITH DEPENDENCE 4. CHRONIC MEDICATION NONCOMPLIANCE 5. MIXED HYPERLIPIDEMIA Discharge Diagnoses with Status of Each Condition: 1. ACUTE CHEST PAIN WITH NON-CARDIAC ETIOLOGY 2. ACUTE ON CHRONIC BACK PAIN 3. CHRONIC OPIOD USAGE WITH DEPENDENCE 4. CHRONIC MEDICATION NONCOMPLIANCE 5. MIXED HYPERLIPIDEMIA - HPI History of Present Illness: Patient is a 61-year-old male who presents to the emergency department with several hours of ongoing chest pain this morning. States that it is substernal , center of the chest, nonradiating. 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 He also states that his chronic back pain is "acting up". Does not have a primary care provider. Has not seen the pain clinic anymore. States he is out of his Percocet. Patient received aspirin, nitroglycerin and morphine from EMS without change in his pain. Normal twelve- lead EKG with EMS per report. No ST changes per EMS report. Last stent placement was 3 years ago at [facility]. Patient also states that he is not following up with cardiology and has not seen them for several years. - CONSULTS | PROCEDURES Consultations: none Procedures: - EKG (time done) 1408 Rate: Rate (enter#) (85) Rhythm: NSR [place]: Normal Intervals: Normal [place] Ischemia: Normal ST segments, Q waves (II, III, aVF) Computer interpretation: Agree with computer - HOSPITAL COURSE Hospital Course: Patient is a 61-year-old male who presented to the emergency department with several hours of ongoing chest pain. 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 He also stated that his chronic back pain was "acting up". He did not have a primary care provider because he had been seen by many of them in [place] and they had fired him or he left them because he would do what was expected of him. Has not seen the pain clinic anymore. States he was out of his Percocet. Patient received aspirin, nitroglycerin and morphine from EMS without change in his pain. Normal twelve- lead EKG with EMS per report. No ST changes per EMS report. Last stent placement was 3 years ago at [facility]. Patient also states that he is not following up with cardiology and has not seen them for several years. Patient was admitted into observation and continued on all home medications including his pain medications.He had cardiac markers trended and were all negative. he received two EKG that were both unchanged. He received IVF NS for gentle hydration. DVT prophylaxis with SCD and Lovenox SQ. He was on a cardiac diet. He received morphine and aspirin and nitro on the floor. An echocardiogram was done and was negative. he had a stress test NM done today before discharge and his only complaint at the time of discharge was receiving more pain medications for his back. He was concerned that he would not be able to see a spray rig operator or primary care provider to get his pain medications. he states his back has been in alot of pain. Recommended follow up with several providers in the area as well as a pain clinic to see for his back. Patient was verbally upset that pain medications were not prescribed outpatient. Recommended other ways to manage the pain along with physical therapy and supplemental over the counter. Patient denied those methods. He was able to be discharged home since he was negative for an acute cardiac event. - ALLERGIES Allergies/Adverse Reactions: Allergies Allergy/AdvReac Type Severity Reaction Status Date / Time No Known Drug Allergies Allergy Verified 03/17/17 14:06 - MEDICATIONS Home Medications: Ambulatory Orders Medication Instructions Recorded Confirmed Aspirin [Bakari Chewable Aspirin] 81 mg ORAL DAILY 01/17/14 03/18/17 Clopidogrel Bisulfate [Plavix] 75 mg ORAL DAILY 01/17/14 03/18/17 Lisinopril [Zestril] 5 mg ORAL DAILY 01/17/14 03/18/17 Metoprolol Succinate [Toprol Xl] 25 mg ORAL BID 01/17/14 03/18/17 Nitroglycerin 0.4 mg SL Q5MIN PRN 01/17/14 03/18/17 Famotidine [Pepcid] 20 mg PO BID #60 tablet 09/20/15 03/18/17 Atorvastatin [Lipitor] 40 mg PO QPM 11/24/16 03/18/17 Diazepam 5 mg PO TID PRN #20 tablet 03/02/17 03/18/17 Oxycodone HCl/Acetaminophen 1 each PO TID PRN #25 tablet 03/02/17 03/18/17 [Percocet 7.5-325 mg Tablet] - PHYSICAL EXAM AT DISCHARGE General Appearance: positive: No acute distress, Alert Eyes Bilateral: positive: Normal inspection, PERRL, EOMI ENT: positive: ENT inspection nml, Pharynx nml, No signs of dehydration Neck: positive: Nml inspection, Thyroid nml, No JVD, Trachea midline Respiratory: positive: Chest non-tender, No respiratory distress, Breath sounds nml Cardiovascular: positive: Regular rate & rhythm, No murmur, No gallop Peripheral Pulses: positive: 2+ Abdomen: positive: Non-tender, Nml bowel sounds, No distention. negative: Guarding, Rebound Rectal: positive: Non-tender Back: positive: Nml inspection. negative: CVA tenderness (R), CVA tenderness (L ) Skin: positive: Color nml, No rash, Warm, Dry Extremities: positive: Non-tender, Full ROM, Nml appearance, No pedal edema Neurologic/Psychiatric: positive: Oriented x3, CN's nml (2-12), Motor nml, Sensation nml, Mood/affect nml - LABS Result Diagrams: 03/17/17 14:18 03/18/17 04:00 Other Lab Results: Abnormal Lab Results 03/17/17 03/18/17 03/18/17 14:18 04:00 06:08 Chloride 100 mmol/L L mmol/L (101-111) Anion Gap 14.0 H (6-13) Estimated GFR (MDRD) 86 L 76 L (>89) (>89) Glucose 113 mg/dL H mg/dL (70-100) Total Bilirubin 1.8 mg/dL H mg/dL (0.2-1.0) AST 57 IU/L H IU/L (10-42) ALT 73 IU/L H IU/L (10-60) Urine Opiates Screen POSITIVE H (NEGATIVE) Ur Oxycodone Screen POSITIVE H (NEGATIVE) U Benzodiazepines Scrn POSITIVE H (NEGATIVE) - DIAGNOSTIC IMAGING Diagnostic Imaging Results: Final report reviewed - FOLLOW UP Follow Up: PATIENT WAS INSTRUCTED TO SEE PRIMARY CARE AND PAIN MANAGEMENT AND PROVIDED A COPY OF PROVIDERS IN THE AREA. CASE MANAGEMENT BROUGHT PATIENT A LIST AND SPOKE WITH HIM AT LENGTH ABOUT THE AVAILABLE PROVIDERS. PATIENT UNDERSTOOD BUT DID NOT WANT TO LISTEN AND ARGUED ABOUT TREATMENT. PATIENT IS STABLE TO BE SENT HOME WITH INSTRUCTIONS AND TOLD HE MUST MAKE THE INITIAL CONTACT WITH PRIMARY CARE FOR REFERRAL TO PAIN MANAGEMENT - TIME SPENT Time Spent in Discharge (Minutes): 45 (ASSESSMENT AND PLANNING FOR DISCHARGE)
[2017-03-18] MEDS: CYCLOBENZAPRINE 10 MG TABLET PO PRN (08:22)
[2017-03-18] MEDS: METOPROLOL SUCCINATE 25 MG TABLET PO SCH (08:23)
[2017-03-18] MEDS: FAMOTIDINE 20 MG TABLET PO SCH (08:23)
[2017-03-18] MEDS ORDERED: ASPIRIN CHEW 81 MG TABLET PO SCH (09:00)
[2017-03-18] MEDS ORDERED: DEXAMETHASONE 4 MG TABLET PO SCH (09:00)
[2017-03-18] MEDS ORDERED: CLOPIDOGREL 75 MG TABLET PO SCH (09:00)
[2017-03-18] MEDS ORDERED: POLYETHYLENE GLYCOL 3350 17 GM PACKET PO SCH (09:00)
[2017-03-18] MEDS ORDERED: LISINOPRIL 5 MG TABLET PO SCH (09:00)
[2017-03-18] MEDS ORDERED: REGADENOSON 0.4 MG/5 ML SYRINGE IVP ONE ×2 (09:46→12:10)
[2017-03-18] MEDS ORDERED: TC-99M/TETROFOSMIN 1.38 MG/30 ML VIAL IVP ONE (11:00)
[2017-03-18 13:41] VITALS: BP 130/78
--- NOTE | 2017-03-18 13:49 | Nuclear Medicine Prelim Report ---
Exam: NM Stress Test Interp and Report IMPRESSION: 1. No scintigraphic findings to indicate myocardial ischemia. Negative for infarct. 2. Borderline low left ventricular ejection fraction of 48%. 3. Normal segmental and global wall motion. 4. Normal left ventricular cavity size, no change with stress. [facility] SITE ID: [id number]
--- NOTE | 2017-03-18 13:51 | Nuclear Medicine Report ---
EXAM: SINGLE-ISOTOPE PHARMACOLOGICAL STRESS TEST WITH REGADENOSON. SINGLE-ISOTOPE AND ONE-DAY REST/STRESS M YOCARDIAL PERFUSION SCANS WITH TOMOGRAPHIC IMAGING, QUANTITATIVE ANALYSIS, WALL MOTION ANALYSIS AND C ALCULATION OF EJECTION FRACTION. EXAM DATE: 03/18/2017 09:47 AM. CLINICAL HISTORY: Chest pain w hx of CAD and stents. COMPARISON: None. TECHNIQUE: After the intravenous administration of 9.5 mCi of Tc-99m sestamibi, a rest myocardial perfusion scan was done with tomography. Motion correction was applied when appropriate. A pharmacological stress was performed with the infusion of 0.4 mg regadenoson per protocol. Accordin g to protocol, 40.3 mCi of Tc-99m sestamibi was injected for stress myocardial perfusion scan. Motion correction was applied when appropriate. Gated tomographic images were obtained for wall motion analysis and computation of left ventricular e jection fraction. FINDINGS: There is mild apical thinning. No convincing fixed or reversible perfusion defects are iden tified. Wall motion analysis demonstrates no focal wall motion abnormality The left ventricular end-diastolic volume is 111 cc. The left ventricular end-systolic volume is 57 c c. The left ventricular ejection fraction is calculated to be 48%. IMPRESSION: 1. No scintigraphic findings to indicate myocardial ischemia. Negative for infarct. 2. Borderline low left ventricular ejection fraction of 48%. 3. Normal segmental and global wall motion. 4. Normal left ventricular cavity size, no change with stress. [facility] Referring Provider Line: [phone] SITE ID: [id number]
== END 2017-03-18 14:05 | disposition home or self-care (01) ==
LOC: EDUNIT# → ED 13:57 → OBS 17:02
PROVIDERS: ADMIT Specialist; ATTEND Nurse Practitioner
DX: R07.89 Other chest pain (principal); M54.9 Dorsalgia, unspecified; G89.29 Other chronic pain; F11.20 Opioid dependence, uncomplicated; I25.10 Atherosclerotic heart disease of native coronary artery without angina pectoris; E78.5 Hyperlipidemia, unspecified; I10 Essential (primary) hypertension; R79.89 Other specified abnormal findings of blood chemistry; K21.9 Gastro-esophageal reflux disease without esophagitis; K76.0 Fatty (change of) liver, not elsewhere classified; K40.20 Bilateral inguinal hernia, without obstruction or gangrene, not specified as recurrent; K42.9 Umbilical hernia without obstruction or gangrene; R10.84 Generalized abdominal pain; Z91.14 Patient's other noncompliance with medication regimen; Z91.19 Patient's noncompliance with other medical treatment and regimen; Z79.82 Long term (current) use of aspirin; Z79.02 Long term (current) use of antithrombotics/antiplatelets; Z79.891 Long term (current) use of opiate analgesic; Z79.899 Other long term (current) drug therapy; Z95.5 Presence of coronary angioplasty implant and graft; I25.2 Old myocardial infarction
CPT/HCPCS: 36415; 71010; 74177; 80048; 80053; 80074; 80306; 83690; 83735; 84484; 85025; 93005; 93018; 96374; 99284; 99285; A9270; A9502; A9512; A9538; G0378; J2785; J8540; Q9967; 99283

== ENCOUNTER 2017-03-26 02:51 | Outpatient (CLI) | payer MEDICARE, MEDICAID | END 2017-03-26 02:52 | disposition critical access hospital (66) | LOC: EMS 02:51 | PROVIDERS: ATTEND Surgery | DX: M54.2 Cervicalgia (principal); M54.9 Dorsalgia, unspecified; W01.198A Fall on same level from slipping, tripping and stumbling with subsequent striking against other object, initial encounter; Y93.01 Activity, walking, marching and hiking; Y92.481 Parking lot as the place of occurrence of the external cause | CPT/HCPCS: A0425; A0427 ==

== ENCOUNTER 2017-03-26 03:08 | Emergency (ER) | payer MEDICARE, MEDICAID ==
--- NOTE | 2017-03-26 03:44 | ED Physician Documentation ---
PD HPI Fall - Stated complaint Stated Complaint: GLF - Chief complaint Chief Complaint: Trauma Hd/Nk - History obtained from History obtained from: Patient, EMS - History of Present Illness Mechanism of injury: Syncope Fall distance: Standing position Where injury occurred: Street Timing - onset: How many minutes ago (30) Injury(ies) location: Head, Neck, Left Lower Extremity Quality of pain: Pain, Aching Associated symptoms: LOC, AMS Contributing factors: Intoxicated Similar symptoms before: Has not had sx before Recently seen: Not recently seen - Additional information Additional information: Patient is a 61 year old male brought in by ems after being found down on the sidewalk. Patient admits to drinking this evening and thinks that he might have passed out. patient was placed in a cervical collar and placed on a backboard and brought in by ems. Upon initial evaluation patient was awake and alert and complained of posterior head pain, neck pain, back pain and leg pain. Review of Systems Constitutional: denies: Fever Eyes: denies: Decreased vision, Photophobia Ears: denies: Ear pain, Drainage/discharge Nose: denies: Congestion, Epistaxis Throat: denies: Dental pain / toothache, Sore throat Cardiac: reports: Chest pain / pressure GI: denies: Nausea, Vomiting : reports: Reviewed and negative Skin: denies: Abrasion (s), Laceration (s) Musculoskeletal: reports: Neck pain, Back pain, Extremity pain Neurologic: reports: Syncope, Head injury, LOC. denies: Generalized weakness, Focal weakness, Numbness, Headache Immunocompromised: denies: Immunocompromised PD PAST MEDICAL HISTORY - Past Medical History Cardiovascular: Coronary artery disease, ID Respiratory: None, Sleep apnea Neuro: None Endocrine/Autoimmune: None GI: GERD : None HEENT: None Psych: None Musculoskeletal: Chronic back pain Derm: None - Past Surgical History Past Surgical History: Yes Ortho: Spine surgery Cardiovascular: Coronary stent - Present Medications Home Medications: Ambulatory Orders Medication Instructions Recorded Confirmed Aspirin [Bakari Chewable Aspirin] 81 mg ORAL DAILY 01/17/14 03/26/17 Clopidogrel Bisulfate [Plavix] 75 mg ORAL DAILY 01/17/14 03/26/17 Lisinopril [Zestril] 5 mg ORAL DAILY 01/17/14 03/26/17 Metoprolol Succinate [Toprol Xl] 25 mg ORAL BID 01/17/14 03/26/17 Nitroglycerin 0.4 mg SL Q5MIN PRN 01/17/14 03/26/17 Famotidine [Pepcid] 20 mg PO BID #60 tablet 09/20/15 03/26/17 Atorvastatin [Lipitor] 40 mg PO QPM 11/24/16 03/26/17 Diazepam 5 mg PO TID PRN #20 tablet 03/02/17 03/26/17 Oxycodone HCl/Acetaminophen 1 each PO TID PRN #25 tablet 03/02/17 03/26/17 [Percocet 7.5-325 mg Tablet] - Allergies Allergies/Adverse Reactions: Allergies Allergy/AdvReac Type Severity Reaction Status Date / Time No Known Drug Allergies Allergy Unverified 03/26/17 03:13 - Social History Does the pt smoke?: Yes Smoking Status: Current every day smoker Does the pt drink ETOH?: Yes ETOH Use: Beer Does the pt have substance abuse?: No - Immunizations Immunizations are current?: No Immunizations: TDAP >10years/unknown PD ED PE NORMAL - Vitals Vital signs reviewed: Yes - General General: Alert and oriented X 3, No acute distress - HEENT HEENT: Atraumatic, PERRL, Moist mucous membranes, Pharynx benign, Dentition benign - Neck Neck: Supple, no meningeal sign - Cardiac Cardiac: RRR, No murmur - Respiratory Respiratory: No respiratory distress, Clear bilaterally - Abdomen Abdomen: Soft, Non tender, Non distended - Neuro Neuro: Alert and oriented X 3, No motor deficit, No sensory deficit, Normal speech - Psych Psych: Normal mood, Normal affect PD ED PE EXPANDED - General General: Disheveled, poorly kept - Neck Neck: Soft tissue TTP, Bony TTP - Abdomen Abdomen: No: Distended, Tender to palpation, Rebound, Guarding - Back Back: Vertebral tenderness (thoracic tenderness), Other (previous surgical scar of lumbar spine) - Extremities Extremities: Tenderness, Left hip (tenderness to palpation), Left foot ( tenderness and ecchymosis of 1st digit). No: Deformity, Limited ROM - GCS Eye Opening: Spontaneous Motor: Obeys Commands Verbal: Oriented Total: 15 Results - Vitals Vitals: Vital Signs - 24 hr 03/26/17 03/26/17 03/26/17 03:10 03:18 04:09 Temperature 36.6 C Heart Rate 97 101 H 99 Respiratory 20 16 15 Rate Blood Pressure 115/75 136/93 H 135/92 H O2 Saturation 98 97 97 Oxygen O2 Source Room air - Rads (name of study) ct head Radiology: Final report received (no acute abnormality) ct cervical spine Radiology: Final report received (no acute abnormality) thoracic spine Radiology: Final report received (no abnormality) chest x-ray Radiology: Final report received (no acute process) hip Radiology: Final report received (no acute fracture or dislocation) foot Radiology: Final report received (no acute fracture or dislocation) Procedures - C spine clearance Nexus C spine guidelines: Intoxicated, C/of midline pain - FAST exam (time) 0345 FAST exam: No: Free fluid RUQ, Free fluid LUQ, Free fluid suprapubic, Pericardial effusion, Pneumothorax, right, Pneumothorax, left PD MEDICAL DECISION MAKING - ED course Complexity details: reviewed old records, reviewed results, re-evaluated patient , considered differential, d/w patient ED course: Patient was seen and examined at bedside. bedside fast was performed and was within normal limits. Imaging was ordered. When patient returned from imaging , results were reviewed. there were no acute findings. Patient was cleared of the c-collar. Patient was treated with toradol for pain. Patient required no further work up and was stable for discharge with outpatient follow up. Departure - Departure Disposition: 01 Home, Self Care Clinical Impression: Contusion Condition: Good Instructions: ED Contusion Back Follow-Up: Kareen Jonas ARNP [Primary Care Provider] - As Needed Comments: Your diagnostics today were all within normal limits. there were no acute bleeds, fractures or dislocations. You might be more sore tomorrow and the next day and you can take motrin or tylenol as needed for pain. You will need to follow up with your pmd if your symptoms persist for more than the next 3-4 days.
--- NOTE | 2017-03-26 04:43 | XRAY Preliminary Report ---
Exam: XR Chest 1 View IMPRESSION: 1. Small lung volumes and mild interstitial prominence. 2. No definite acute abnormality seen. [facility] SITE ID: [id number]
--- NOTE | 2017-03-26 04:44 | CT Preliminary Report ---
Exam: CT Head W/O IMPRESSION: Generalized age-related cortical atrophic changes without evidence of acute intracranial abnormality. [facility] SITE ID: [id number]
--- NOTE | 2017-03-26 04:46 | XRAY Preliminary Report ---
Exam: XR Thoracic Spine 2 View IMPRESSION: 1. No acute fracture or dislocation identified. 2. T12 is not completely included on the AP view. [facility] SITE ID: [id number]
--- NOTE | 2017-03-26 04:46 | XRAY Report ---
EXAM: CHEST RADIOGRAPHY EXAM DATE: 03/26/2017 04:22 AM. CLINICAL HISTORY: Syncope. Pain after injury. COMPARISON: 03/17/2017. TECHNIQUE: 1 view. FINDINGS: Lungs/Pleura: Small lung volumes. Mild interstitial prominence. No alveolar consolidation or pleural effusion. No pneumothorax. Mediastinum: Heart size is probably normal for technique. Other: Old left clavicle fracture. IMPRESSION: 1. Small lung volumes and mild interstitial prominence. 2. No definite acute abnormality seen. [facility] Referring Provider Line: [phone] SITE ID: [id number]
--- NOTE | 2017-03-26 04:48 | XRAY Report ---
EXAM: THORACIC SPINE RADIOGRAPHY EXAM DATE: 03/26/2017 04:21 AM. CLINICAL HISTORY: Pain after injury. COMPARISON: None. TECHNIQUE: 3 views. FINDINGS: Alignment: Unremarkable as imaged. Bones: No acute fracture seen. T12 is not completely included on the AP view. Disks: Mild degenerative changes. Soft Tissues: Unremarkable. IMPRESSION: 1. No acute fracture or dislocation identified. 2. T12 is not completely included on the AP view. [facility] Referring Provider Line: [phone] SITE ID: [id number]
--- NOTE | 2017-03-26 04:48 | XRAY Preliminary Report ---
Exam: XR Foot 3 View LT IMPRESSION: 1. No acute fracture or dislocation seen. [facility] SITE ID: [id number]
--- NOTE | 2017-03-26 04:49 | CT Preliminary Report ---
Exam: CT Cervical Spine W/O IMPRESSION: No acute cervical spine fracture or malalignment. [facility] SITE ID: [id number]
--- NOTE | 2017-03-26 04:50 | XRAY Report ---
EXAM: LEFT FOOT RADIOGRAPHY EXAM DATE: 03/26/2017 04:21 AM. CLINICAL HISTORY: Pain after injury. COMPARISON: None. TECHNIQUE: 3 views. FINDINGS: Bones: No acute fracture seen. Plantar calcaneal osteophyte. Joints: No dislocation. Joint spaces appear intact. Soft Tissues: Mild soft tissue swelling. IMPRESSION: 1. No acute fracture or dislocation seen. [facility] Referring Provider Line: [phone] SITE ID: [id number]
--- NOTE | 2017-03-26 04:51 | CT Report ---
EXAM: CT HEAD EXAM DATE: 03/26/2017 04:21 AM. CLINICAL HISTORY: Syncope, altered mental status. COMPARISON: None. TECHNIQUE: Multiaxial CT images were obtained from the foramen magnum to the vertex. IV contrast: Non e. Reformats: Coronal. In accordance with CT protocol optimization, one or more of the following dose reduction techniques w ere utilized for this exam: automated exposure control, adjustment of mA and/or KV based on patient s ize, or use of iterative reconstructive technique. FINDINGS: Parenchyma: No intraparenchymal hemorrhage. No evidence of mass, midline shift, or CT findings of acu te infarction. Ansari-white differentiation is distinct. Extraaxial Spaces: Normal for age. No subdural or epidural collections identified. Ventricles: The ventricles and cortical sulci are mildly enlarged, consistent with age-related tissue loss. Sinuses: Imaged paranasal sinuses, orbits, and mastoids show no significant abnormality. Bones: No evidence of fracture or calvarial defect. Other: Mild intracranial atherosclerosis is noted. IMPRESSION: Generalized age-related cortical atrophic changes without evidence of acute intracranial abnormality. [facility] Referring Provider Line: [phone] SITE ID: [id number]
--- NOTE | 2017-03-26 04:52 | XRAY Preliminary Report ---
Exam: XR Hip w/Pelvis 2-3V LT IMPRESSION: 1. No acute abnormality seen in the pelvis or hip. [facility] SITE ID: [id number]
--- NOTE | 2017-03-26 04:54 | XRAY Report ---
EXAM: LEFT HIP AND PELVIS RADIOGRAPHY EXAM DATE: 03/26/2017 04:34 AM. HISTORY: Pain after injury. COMPARISONS: None. TECHNIQUE: 1 view of the pelvis and 1 view of the hip. FINDINGS: Bones: No fracture seen. Joints: The bilateral hip, pubis symphysis, and sacroiliac joints are preserved. Soft Tissues: Grossly unremarkable. IMPRESSION: 1. No acute abnormality seen in the pelvis or hip. [facility] Referring Provider Line: [phone] SITE ID: [id number]
--- NOTE | 2017-03-26 05:00 | CT Report ---
EXAM: CT CERVICAL SPINE WITHOUT CONTRAST DATE: 03/26/2017 04:21 AM HISTORY: Syncope, fall. COMPARISONS: None. TECHNIQUE: Thin-section axial images were acquired of the cervical spine without contrast. Post-proce ssing: Coronal and sagittal reformats. Other: None. In accordance with CT protocol optimization, one or more of the following dose reduction techniques w ere utilized for this exam: automated exposure control, adjustment of mA and/or KV based on patient s ize, or use of iterative reconstructive technique. FINDINGS: Alignment: Normal. No scoliosis or spondylolisthesis. Bones: No acute cervical spine fracture is identified. Interspace Levels/Facets: C1-C2: Unremarkable. C2-C3: Left facet arthropathy is present without spinal canal or foraminal stenosis. C3-C4: Unremarkable. C4-C5: Unremarkable. C5-C6: Unremarkable. C6-C7: There is mild bilateral foraminal narrowing due to uncovertebral hypertrophy. The spinal canal is patent. C7-T1: Unremarkable. Musculature: There is mild diffuse fatty atrophy of the posterior paraspinal muscles. Other: No acute abnormality is seen in soft tissues of neck. Mild emphysematous changes are present i n the lung apices. IMPRESSION: No acute cervical spine fracture or malalignment. [facility] Referring Provider Line: [phone] SITE ID: [id number]
[2017-03-26] MEDS ORDERED: KETOROLAC 60 MG/2 ML VIAL IVP STA (05:02)
[2017-03-26] MEDS ORDERED: KETOROLAC 15 MG/ML VIAL ONE (05:18)
[2017-03-26 05:40] VITALS: BP 119/73
== END 2017-03-26 05:39 | disposition home or self-care (01) ==
LOC: EDUNIT# → ED 03:08
DX: T14.8 Other injury of unspecified body region (principal); W18.39XA Other fall on same level, initial encounter; Y92.480 Sidewalk as the place of occurrence of the external cause; I10 Essential (primary) hypertension; I25.2 Old myocardial infarction; G47.30 Sleep apnea, unspecified; K21.9 Gastro-esophageal reflux disease without esophagitis; Z79.82 Long term (current) use of aspirin; F17.200 Nicotine dependence, unspecified, uncomplicated
CPT/HCPCS: 70450; 71010; 72070; 72125; 96374; 99283; 99284

== ENCOUNTER 2017-04-03 20:16 | Outpatient (CLI) | payer MEDICARE, MEDICAID | END 2017-04-03 20:17 | disposition critical access hospital (66) | LOC: EMS 20:16 | PROVIDERS: ATTEND Surgery | DX: M54.2 Cervicalgia (principal); M54.9 Dorsalgia, unspecified; R51 Headache; R55 Syncope and collapse | CPT/HCPCS: A0425; A0427 ==

== ENCOUNTER 2017-04-03 20:54 | Emergency (ER) | payer MEDICARE, MEDICAID ==
--- NOTE | 2017-04-03 20:58 | ED Physician Documentation ---
PD HPI Fall - Stated complaint Stated Complaint: GLF/LOC/C-SPINE - Chief complaint Chief Complaint: Trauma Hd/Nk - History obtained from History obtained from: Patient, EMS - History of Present Illness Mechanism of injury: Unknown Fall distance: Standing position Where injury occurred: Street Injury(ies) location: Head, Neck, Back Pain level now: 8 Quality of pain: Pain Associated symptoms: AMS (oriented x 1 on medics' arrival on scene, but improved to Ox3 en route to ED), Amnesia, Neck pain, Paresthesias (LLE (patient says this is chronic)). No: LOC Symptoms improve with: Rest Worsens with: Movement, Palpation Contributing factors: Anticoagulated, Other (uncertain if intoxicated; he admits to drinking alcohol tonight, but tells me "very little") Similar symptoms before: Work up / diagnostics (T+R from this ED 10 days ago for same (fall onto sidewalk, simlar pain c/o, unremarkable w/u)) Recently seen: Emergency Dept (10 days ago as noted above; also 03/17 for CP ( admitted overnight and w/u inpatient included nuc. ST). also T+R from this ED 03/02 and 01/25 for back pain) Review of Systems Cardiac: reports: Reviewed and negative Respiratory: reports: Reviewed and negative GI: reports: Reviewed and negative Musculoskeletal: reports: Neck pain, Back pain Neurologic: reports: Numbness (LLE (chronic, per patient)), Altered mental status, Headache, Head injury PD PAST MEDICAL HISTORY - Past Medical History Cardiovascular: Coronary artery disease, [place] Respiratory: None, Sleep apnea Neuro: None Endocrine/Autoimmune: None GI: GERD : None HEENT: None Psych: None Musculoskeletal: Chronic back pain Derm: None - Past Surgical History Past Surgical History: Yes Ortho: Spine surgery Cardiovascular: Coronary stent - Present Medications Home Medications: Ambulatory Orders Medication Instructions Recorded Confirmed Aspirin [Bakari Chewable Aspirin] 81 mg ORAL DAILY 01/17/14 03/26/17 Clopidogrel Bisulfate [Plavix] 75 mg ORAL DAILY 01/17/14 03/26/17 Lisinopril [Zestril] 5 mg ORAL DAILY 01/17/14 03/26/17 Metoprolol Succinate [Toprol Xl] 25 mg ORAL BID 01/17/14 03/26/17 Nitroglycerin 0.4 mg SL Q5MIN PRN 01/17/14 03/26/17 Famotidine [Pepcid] 20 mg PO BID #60 tablet 09/20/15 03/26/17 Atorvastatin [Lipitor] 40 mg PO QPM 11/24/16 03/26/17 Diazepam 5 mg PO TID PRN #20 tablet 03/02/17 03/26/17 Oxycodone HCl/Acetaminophen 1 each PO TID PRN #25 tablet 03/02/17 03/26/17 [Percocet 7.5-325 mg Tablet] - Allergies Allergies/Adverse Reactions: Allergies Allergy/AdvReac Type Severity Reaction Status Date / Time No Known Drug Allergies Allergy Verified 04/03/17 21:05 - Social History Does the pt smoke?: Yes Smoking Status: Current every day smoker Does the pt drink ETOH?: Yes Does the pt have substance abuse?: No - Immunizations Immunizations are current?: No Immunizations: TDAP >10years/unknown PD ED PE NORMAL - Vitals Vital signs reviewed: Yes - General General: No acute distress, Well developed/nourished, Other (awake, alert, oriented x 2 (does not know where he is when I ask)) - HEENT HEENT: PERRL, EOMI, Other (pupils are equal but dilated bilaterally (5-6mm)) - Neck Neck: Other (hard cervical collar in place; he is tender midline when I push through the opening in back of collar (kept collar in place)) - Cardiac Cardiac: RRR, No murmur - Respiratory Respiratory: No respiratory distress, Clear bilaterally - Abdomen Abdomen: Soft, Non distended, Other (TTP bilateral lower quadrants) - Back Back: No spinal TTP (he indicated midline low back pain, but I is not tender on exam (palpation)) - Derm Derm: Normal color, Warm and dry - Extremities Extremities: No deformity, No tenderness to palpate, Normal ROM s pain - Neuro Neuro: service learning coordinator 2-12 intact, No motor deficit, No sensory deficit Results - Vitals Vitals: Oxygen O2 Source Room air - Labs Labs: Laboratory Tests 04/03/17 04/03/17 04/03/17 21:05 21:05 21:05 WBC 7.1 RBC 4.80 Hgb 14.8 Hct 42.5 MCV 88.6 MCH 30.8 MCHC 34.8 RDW 14.5 Plt Count 154 MPV 8.1 Neut # 4.5 Lymph # 1.7 [place] # 0.5 Eos # 0.2 Baso # 0.1 Absolute Nucleated RBC 0.01 Nucleated RBC % 0.1 PT 11.5 INR 1.0 APTT 24.4 L Sodium 135 Potassium 3.8 Chloride 97 L Carbon Dioxide 25 Anion Gap 13.0 BUN 7 Creatinine 1.0 Estimated GFR (MDRD) 76 L Glucose 107 H Calcium 8.8 Total Bilirubin 0.7 AST 62 H ALT 57 Alkaline Phosphatase 64 Total Protein 6.8 Albumin 3.7 Globulin 3.1 Albumin/Globulin Ratio 1.2 Lipase 84 H Urine Color Urine Clarity Urine pH Ur Specific [place] Urine Protein Urine Glucose (UA) Urine Ketones Urine Occult Blood Urine Nitrite Urine Bilirubin Urine Urobilinogen Ur Leukocyte Esterase Ur Microscopic Review Urine Culture Comments Urine Opiates Screen Ur Oxycodone Screen Urine Methadone Screen Ur Propoxyphene Screen Ur Barbiturates Screen Ur Tricyclics Screen Ur Phencyclidine Scrn Ur Amphetamine Screen U Methamphetamines Scrn U Benzodiazepines Scrn Urine Cocaine Screen U Cannabinoids Screen Ethyl Alcohol 286.6 04/03/17 04/03/17 21:30 21:30 WBC RBC Hgb Hct MCV MCH MCHC RDW Plt Count MPV Neut # Lymph # [place] # Eos # Baso # Absolute Nucleated RBC Nucleated RBC % PT INR APTT Sodium Potassium Chloride Carbon Dioxide Anion Gap BUN Creatinine Estimated GFR (MDRD) Glucose Calcium Total Bilirubin AST ALT Alkaline Phosphatase Total Protein Albumin Globulin Albumin/Globulin Ratio Lipase Urine Color YELLOW Urine Clarity CLEAR Urine pH 5.0 Ur Specific [place] <=1.005 Urine Protein NEGATIVE Urine Glucose (UA) NEGATIVE Urine Ketones NEGATIVE Urine Occult Blood NEGATIVE Urine Nitrite NEGATIVE Urine Bilirubin NEGATIVE Urine Urobilinogen 0.2 (NORMAL) Ur Leukocyte Esterase NEGATIVE Ur Microscopic Review NOT INDICATED Urine Culture Comments NOT INDICATED Urine Opiates Screen NEGATIVE Ur Oxycodone Screen NEGATIVE Urine Methadone Screen NEGATIVE Ur Propoxyphene Screen NEGATIVE Ur Barbiturates Screen NEGATIVE Ur Tricyclics Screen NEGATIVE Ur Phencyclidine Scrn NEGATIVE Ur Amphetamine Screen NEGATIVE U Methamphetamines Scrn NEGATIVE U Benzodiazepines Scrn POSITIVE H Urine Cocaine Screen NEGATIVE U Cannabinoids Screen NEGATIVE Ethyl Alcohol - Rads (name of study) CT head Radiology: Prelim report reviewed, See rad report CT cervical spine Radiology: Prelim report reviewed, See rad report CT A/P Radiology: Prelim report reviewed, See rad report PD MEDICAL DECISION MAKING - ED course Complexity details: reviewed old records, reviewed results, re-evaluated patient , considered differential, d/w patient Departure - Departure Disposition: 01 Home, Self Care Clinical Impression: Fall Condition: Good Instructions: ED Fall Uncertain Cause Follow-Up: Kareen Jonas ARNP [Primary Care Provider] - Discharge Date/Time: 04/04/17 01:00
[2017-04-03 21:22] LABS: BASOPHILS # (AUTO) 0.1 10^3/uL (0.0-0.1); BASOPHILS % (AUTO) 1.4 %; EOSINOPHILS # (AUTO) 0.2 10^3/uL (0.0-0.7); EOSINOPHILS % (AUTO) 3.3 %; HCT - HEMATOCRIT 42.5 % (42.0-52.0); HGB - HEMOGLOBIN 14.8 g/dL (14.0-18.0); LYMPHOCYTES # (AUTO) 1.7 10^3/uL (1.5-3.5); LYMPHOCYTES % (AUTO) 24.5 %; MEAN CORPUSCULAR HEMOGLOBIN 30.8 pg (27.0-31.0); MEAN CORPUSCULAR HGB CONC 34.8 g/dL (32.0-36.0); MEAN CORPUSCULAR VOLUME 88.6 fL (80.0-94.0); MEAN PLATELET VOLUME 8.1 fL (7.4-11.4); MONOCYTES # (AUTO) 0.5 10^3/uL (0.0-1.0); MONOCYTES % (AUTO) 6.6 %; NEUTROPHILS # (AUTO) 4.5 10^3/uL (1.5-6.6); NEUTROPHILS % (AUTO) 64.2 %; NUCLEATED RED BLOOD CELLS AUTO 0.1 /100WBC; RED CELL DISTRIBUTION WIDTH 14.5 % (12.0-15.0); UNCORRECTED WHITE BLOOD COUNT 7.1 x10^3/uL; WHITE BLOOD COUNT 7.1 x10^3/uL (4.8-10.8)
[2017-04-03 21:30] LABS: PT - PROTHROMBIN TIME 11.5 secs (9.9-12.6)
[2017-04-03 21:32] LABS: ALBUMIN/GLOBULIN RATIO 1.2 (1.0-2.2); BILIRUBIN,TOTAL 0.7 mg/dL (0.2-1.0); CALCIUM 8.8 mg/dL (8.5-10.3); POTASSIUM 3.8 mmol/L (3.5-5.0); TOTAL PROTEIN 6.8 g/dL (6.7-8.2)
[2017-04-03 21:38] LABS: PARTIAL THROMBOPLASTIN TIME 24.4 secs (24.9-33.3)
[2017-04-03 21:41] LABS: BILIRUBIN,URINE NEGATIVE (NEGATIVE)
[2017-04-03] MEDS ORDERED: IOPAMIDOL-300 100 ML VIAL ONE (21:46)
--- NOTE | 2017-04-03 22:01 | CT Preliminary Report ---
Exam: CT Head W/O IMPRESSION: Normal head CT. [facility] SITE ID: [id number]
--- NOTE | 2017-04-03 22:03 | CT Report ---
EXAM: CT HEAD EXAM DATE: 04/03/2017 09:35 PM. CLINICAL HISTORY: Fall. Loss of consciousness. COMPARISON: 03/26/2017. TECHNIQUE: Multiaxial CT images were obtained from the foramen magnum to the vertex. IV contrast: Non e. Reformats: Coronal. In accordance with CT protocol optimization, one or more of the following dose reduction techniques w ere utilized for this exam: automated exposure control, adjustment of mA and/or KV based on patient s ize, or use of iterative reconstructive technique. FINDINGS: Parenchyma: No intraparenchymal hemorrhage. No evidence of mass, midline shift, or CT findings of inf arction. Ansari-white differentiation is distinct. Extraaxial Spaces: Normal for age. No subdural or epidural collections identified. Ventricles: Normal in size and position. Sinuses: Imaged paranasal sinuses, orbits, and mastoids show no significant abnormality. Bones: No evidence of fracture or calvarial defect. Other: None. IMPRESSION: Normal head CT. [facility] Referring Provider Line: [phone] SITE ID: [id number]
--- NOTE | 2017-04-03 22:04 | CT Preliminary Report ---
Exam: CT Cervical Spine W/O IMPRESSION: 1. No acute cervical spine abnormality. 2. Advanced degenerative disk disease at C6-C7. [facility] SITE ID: [id number]
[2017-04-03 22:06] LABS: UA CHARGE (STRIP ONLY) YES; UR CULTURE IF IND NOT INDICATED
--- NOTE | 2017-04-03 22:07 | CT Report ---
EXAM: CT CERVICAL SPINE WITHOUT CONTRAST DATE: 04/03/2017 09:34 PM HISTORY: Fall. Loss of consciousness. Neck pain. COMPARISONS: 03/26/2017. TECHNIQUE: Thin-section axial images were acquired of the cervical spine without contrast. Post-proce ssing: Coronal and sagittal reformats. Other: None. In accordance with CT protocol optimization, one or more of the following dose reduction techniques w ere utilized for this exam: automated exposure control, adjustment of mA and/or KV based on patient s ize, or use of iterative reconstructive technique. FINDINGS: Alignment: Minimal levoscoliosis. No spondylolisthesis. Bones: No fracture or bone lesion. Interspace Levels/Facets: C1-C2: Unremarkable. C2-C3: Unremarkable. C3-C4: Unremarkable. C4-C5: Unremarkable. C5-C6: Unremarkable. C6-C7: Advanced disk space narrowing with spurring. C7-T1: Unremarkable. Musculature: Normal. No fatty atrophy. Other: The paravertebral and prevertebral soft tissues are normal. The lung apices are clear. IMPRESSION: 1. No acute cervical spine abnormality. 2. Advanced degenerative disk disease at C6-C7. [facility] Referring Provider Line: [phone] SITE ID: [id number]
[2017-04-03] MEDS ORDERED: IOPAMIDOL-300 100 ML VIAL IVP ONE (22:12)
[2017-04-03] MEDS ORDERED: SODIUM CHLORIDE 0.9% 500 ML IV ONE (22:22)
--- NOTE | 2017-04-03 22:26 | CT Preliminary Report ---
Exam: CT Abdomen/Pelvis W/ IMPRESSION: 1. No acute inflammatory or obstructive process seen in the abdomen or pelvis. 2. Fatty liver. 3. Colonic diverticulosis. 4. Small fat-containing bilateral inguinal and umbilical hernias without apparent complication. [facility] SITE ID: [id number]
--- NOTE | 2017-04-03 22:31 | CT Report ---
EXAM: CT ABDOMEN AND PELVIS EXAM DATE: 04/03/2017 10:13 PM. CLINICAL HISTORY: Bilateral lower quadrant tenderness. COMPARISONS: 03/17/2017. TECHNIQUE: Routine helical CT imaging was performed through the abdomen and pelvis. IV contrast: Yes . Enteric contrast: No . Reconstructions: Coronal and sagittal. In accordance with CT protocol optimization, one or more of the following dose reduction techniques w ere utilized for this exam: automated exposure control, adjustment of mA and/or KV based on patient s ize, or use of iterative reconstructive technique. FINDINGS: Lung Bases: Unremarkable. Liver: Fatty. No suspicious masses. Gallbladder/Bile Ducts: Unremarkable. Spleen: Unremarkable. Pancreas: Unremarkable. Adrenal Glands: Unremarkable. Kidneys: Unremarkable. No suspicious masses or hydronephrosis. Peritoneal Cavity/Bowel: Colonic diverticulosis. No bowel obstruction or inflammatory process seen. N o free air or significant free fluid. No masses or adenopathy. The appendix is normal. No excessive s tool burden. Pelvic Organs: Bladder and prostate appear unremarkable. Vasculature: No aneurysms or other significant abnormality. Bones: No significant abnormality. Other: Small fat-containing bilateral inguinal and umbilical hernias without apparent complication. IMPRESSION: 1. No acute inflammatory or obstructive process seen in the abdomen or pelvis. 2. Fatty liver. 3. Colonic diverticulosis. 4. Small fat-containing bilateral inguinal and umbilical hernias without apparent complication. [facility] Referring Provider Line: [phone] SITE ID: [id number]
[2017-04-03] MEDS ORDERED: KETOROLAC 60 MG/2 ML VIAL IVP STA (22:46)
[2017-04-03] MEDS ORDERED: KETOROLAC 30 MG/ML VIAL ONE (22:57)
[2017-04-04] MEDS ORDERED: SODIUM CHLORIDE 0.9% 500 ML IV ONE (00:32)
[2017-04-04] MEDS ORDERED: oxyCODONE 5 MG TABLET PO STA (00:53)
[2017-04-04] MEDS ORDERED: oxyCODONE 5 MG TABLET ONE (00:57)
[2017-04-04 00:59] VITALS: BP 118/69
== END 2017-04-04 01:00 | disposition home or self-care (01) ==
LOC: EDUNIT# → ED 20:54
DX: S09.90XA Unspecified injury of head, initial encounter (principal); R41.82 Altered mental status, unspecified; M54.2 Cervicalgia; M54.5 Low back pain; R51 Headache; W18.30XA Fall on same level, unspecified, initial encounter; Y92.480 Sidewalk as the place of occurrence of the external cause; R20.2 Paresthesia of skin; F17.200 Nicotine dependence, unspecified, uncomplicated; I25.10 Atherosclerotic heart disease of native coronary artery without angina pectoris; Z95.5 Presence of coronary angioplasty implant and graft; Z79.02 Long term (current) use of antithrombotics/antiplatelets; Z79.82 Long term (current) use of aspirin
CPT/HCPCS: 36415; 70450; 72125; 74177; 80053; 80306; 81003; 83690; 85025; 85610; 85730; 96374; 99284; 99285; A9270; G0480; Q9967; 80320; 81001; 87086

== ENCOUNTER 2017-04-11 00:20 | Outpatient (CLI) | payer MEDICARE, MEDICAID | END 2017-04-11 00:21 | disposition critical access hospital (66) | LOC: EMS 00:20 | PROVIDERS: ATTEND Surgery | DX: R07.9 Chest pain, unspecified (principal) | CPT/HCPCS: A0425; A0427 ==

== ENCOUNTER 2017-04-11 00:40 | Emergency (ER) | payer MEDICARE, MEDICAID ==
[2017-04-11] MEDS: MAG HYDROX/AL HYDROX/SIMETH 30 ML UDC PO STA (00:59)
[2017-04-11] MEDS: PHENobarb/HYOSCY/ATROPINE/SCOP 5 ML SYRINGE PO STA (00:59)
[2017-04-11] MEDS: LIDOCAINE VISCOUS 2% 15 ML UDC MM STA (00:59)
[2017-04-11] MEDS ORDERED: MAG HYDROX/AL HYDROX/SIMETH 30 ML UDC ONE (01:02)
[2017-04-11] MEDS ORDERED: PHENobarb/HYOSCY/ATROPINE/SCOP 5 ML SYRINGE PO ONE (01:02)
[2017-04-11] MEDS ORDERED: LIDOCAINE VISCOUS 2% 15 ML UDC MM ONE (01:02)
--- NOTE | 2017-04-11 01:04 | ED Physician Documentation ---
PD HPI CHEST PAIN - Stated complaint Stated Complaint: CP - Chief complaint Chief Complaint: Cardiac - History obtained from History obtained from: Patient, EMS - History of Present Illness Timing - onset: How many hours ago (3) Timing - onset during: Rest Timing - details: Still present Quality: Indigestion, Other ("Burning") Location: Substernal Associated symptoms: Nausea. No: Shortness of air, Diaphoresis, Vomiting Similar symptoms before: Diagnosis (History of coronary artery disease with coronary stents 3 years ago. Also history of gastroesophageal reflux disease.) Recently seen: Emergency Dept (3 visits to this emergency department in the past month.) - Additional information Additional information: The patient is a 61-year-old male who presents via ambulance complaining of substernal chest pain that started 3 hours prior to arrival. He describes it as a "burning sensation" and "indigestion." He reports associated nausea, but denies vomiting. He denies shortness of breath or diaphoresis. He reports running out of his "heart medicine" 2 weeks ago. Review of his medical records reveals that he normally takes metoprolol 25 mg twice daily, lisinopril 5 mg daily, famotidine 20 mg twice daily, and Lipitor 40 mg daily. He refuses to go to his primary physician, who he has not seen for the past 7 months. He is currently trying to become established with another primary care physician. He was seen here 1 week ago with neck pain after falling. He was seen here 2 weeks ago after falling while intoxicated. 4 weeks ago he was seen here with similar chest pain, and was hospitalized on rule out [place] protocol. He had a negative nuclear stress test at that time. Review of Systems Constitutional: denies: Fever Ears: denies: Tinnitus/ringing Nose: denies: Congestion Throat: denies: Sore throat Cardiac: reports: Chest pain / pressure. denies: Palpitations Respiratory: denies: Dyspnea, Cough GI: reports: Abdominal Pain (epigastric), Nausea. denies: Vomiting : denies: Dysuria Skin: denies: Rash Musculoskeletal: reports: Back pain (chronically). denies: Extremity swelling Neurologic: denies: Focal weakness, Numbness, Headache PD PAST MEDICAL HISTORY - Past Medical History Cardiovascular: Coronary artery disease, [place] Respiratory: None, Sleep apnea Neuro: None Endocrine/Autoimmune: None GI: GERD : None HEENT: None Psych: None Musculoskeletal: Chronic back pain Derm: None - Past Surgical History Past Surgical History: Yes Ortho: Spine surgery Cardiovascular: Coronary stent - Present Medications Home Medications: Ambulatory Orders Medication Instructions Recorded Confirmed Aspirin [Bakari Chewable Aspirin] 81 mg ORAL DAILY 01/17/14 03/26/17 Clopidogrel Bisulfate [Plavix] 75 mg ORAL DAILY 01/17/14 03/26/17 Lisinopril [Zestril] 5 mg ORAL DAILY 01/17/14 03/26/17 Metoprolol Succinate [Toprol Xl] 25 mg ORAL BID 01/17/14 03/26/17 Nitroglycerin 0.4 mg SL Q5MIN PRN 01/17/14 03/26/17 Famotidine [Pepcid] 20 mg PO BID #60 tablet 09/20/15 03/26/17 Atorvastatin [Lipitor] 40 mg PO QPM 11/24/16 03/26/17 Diazepam 5 mg PO TID PRN #20 tablet 03/02/17 03/26/17 Oxycodone HCl/Acetaminophen 1 each PO TID PRN #25 tablet 03/02/17 03/26/17 [Percocet 7.5-325 mg Tablet] Famotidine 20 mg PO BID #30 tablet 04/11/17 Lisinopril 5 mg PO DAILY #30 tablet 04/11/17 Metoprolol Succinate [Toprol Xl] 25 mg PO DAILY #30 tablet 04/11/17 - Allergies Allergies/Adverse Reactions: Allergies Allergy/AdvReac Type Severity Reaction Status Date / Time No Known Drug Allergies Allergy Verified 04/03/17 21:05 - Social History Does the pt smoke?: Yes Smoking Status: Current every day smoker Does the pt drink ETOH?: Yes Does the pt have substance abuse?: No - Immunizations Immunizations are current?: No Immunizations: TDAP >10years/unknown - POLST Patient has POLST: No PD ED PE NORMAL - Vitals Vital signs reviewed: Yes (tachycardic) - General General: Alert and oriented X 3, Well developed/nourished - HEENT HEENT: Atraumatic, EOMI, Pharynx benign - Neck Neck: Supple, no meningeal sign, No adenopathy, No JVD - Cardiac Cardiac: No murmur, Other (Rapid rate, regular rhythm.) - Respiratory Respiratory: No respiratory distress, Clear bilaterally, Other (No chest wall tenderness to palpation.) - Abdomen Abdomen: Normal bowel sounds, Soft, Other (Epigastric tenderness to palpation, without rebound or guarding.) - Back Back: No CVA TTP - Derm Derm: No rash - Extremities Extremities: No edema, No calf tenderness / cord - Neuro Neuro: Alert and oriented X 3, No motor deficit, No sensory deficit Results - Vitals Vitals: Vital Signs - 24 hr 04/11/17 04/11/17 04/11/17 00:41 01:13 01:40 Temperature 36.3 C L Heart Rate 122 H 93 79 Respiratory 18 18 18 Rate Blood Pressure 102/72 80/68 L 107/77 O2 Saturation 97 97 97 04/11/17 04/11/17 04/11/17 02:41 03:21 04:18 Temperature Heart Rate 73 67 69 Respiratory 18 18 18 Rate Blood Pressure 115/81 H 126/79 124/81 H O2 Saturation 97 98 100 Oxygen O2 Source Room air - EKG (time done) 00:50 Rate: Rate (enter#) (110) Rhythm: Sinus tachycardia, LAE [place]: Normal Intervals: Normal SC Ischemia: Q waves (in inferior leads III and aVF, consistent with old inferior [place].) Compare to prior EKG: Unchanged from prior EKG Computer interpretation: Agree with computer - Labs Labs: Laboratory Tests 04/11/17 04/11/17 04/11/17 00:55 00:55 00:55 WBC 10.6 RBC 5.09 Hgb 15.6 Hct 44.8 MCV 88.0 MCH 30.6 MCHC 34.8 RDW 14.8 Plt Count 209 MPV 7.3 L Neut # 7.4 H Lymph # 2.1 [place] # 0.9 Eos # 0.1 Baso # 0.1 Absolute Nucleated RBC 0.01 Nucleated RBC % 0.1 Sodium 135 Potassium 3.4 L Chloride 99 L Carbon Dioxide 20 L Anion Gap 16.0 H BUN 6 Creatinine 0.9 Estimated GFR (MDRD) 86 L Glucose 130 H Calcium 8.8 Total Bilirubin 1.2 H AST 45 H ALT 51 Alkaline Phosphatase 68 Troponin I < 0.04 Total Protein 6.9 Albumin 3.9 Globulin 2.9 Albumin/Globulin Ratio 1.4 Lipase 46 Ethyl Alcohol 88.3 - Rads (name of study) Chest 1-view Radiology: Prelim report reviewed, EMP read contemporaneously, See rad report ( Stable negative single view chest.) PD MEDICAL DECISION MAKING - ED course Complexity details: reviewed old records, reviewed results, re-evaluated patient , considered differential, d/w patient, d/w family ED course: The patient's epigastric/substernal pain is most likely due to gastroesophageal reflux. Cardiac angina was considered but is less likely. His electrocardiogram is unchanged and troponin level is normal. He had no improvement of his symptoms after 4 baby aspirin and 1 sublingual nitroglycerin. He did get improvement with administration of a GI cocktail. Famotidine 20 mg was administered IV, and normal saline 1 L was administered IV. Metoprolol 25 mg was administered orally. The patient repeatedly requested pain medication for his chronic back pain. I repeatedly declined to prescribe narcotic medication for his chronic back pain. The patient is being discharged with prescription for famotidine. I also prescribed his antihypertensive medication, metoprolol 25 mg twice daily and lisinopril 5 mg daily. I advised him to minimize alcohol consumption, schedule follow-up with his primary physician, and also discussed potentially worrisome signs or symptoms that should prompt reevaluation in the emergency department. Departure - Departure Disposition: 01 Home, Self Care Clinical Impression: Atypical chest pain Gastroesophageal reflux disease Qualifiers: Esophagitis presence: esophagitis presence not specified Qualified Code(s): K21.9 - Gastro-esophageal reflux disease without esophagitis Condition: Stable Instructions: ED GERD Prescriptions: Famotidine 20 mg PO BID #30 tablet Lisinopril 5 mg PO DAILY #30 tablet Metoprolol Succinate [Toprol Xl] 25 mg PO DAILY #30 tablet Comments: Minimize coffee and alcohol. Take famotidine twice daily as prescribed. Resume taking your metoprolol and lisinopril as prescribed. Follow-up with primary physician within 1-2 weeks. Call to schedule appointment. Return to the emergency department if you develop increasing chest or abdominal pain, shortness of breath, or otherwise worsening symptoms. Discharge Date/Time: 04/11/17 04:18
[2017-04-11 01:08] LABS: BASOPHILS # (AUTO) 0.1 10^3/uL (0.0-0.1); BASOPHILS % (AUTO) 1.3 %; EOSINOPHILS # (AUTO) 0.1 10^3/uL (0.0-0.7); EOSINOPHILS % (AUTO) 0.6 %; HCT - HEMATOCRIT 44.8 % (42.0-52.0); HGB - HEMOGLOBIN 15.6 g/dL (14.0-18.0); LYMPHOCYTES # (AUTO) 2.1 10^3/uL (1.5-3.5); LYMPHOCYTES % (AUTO) 19.9 %; MEAN CORPUSCULAR HEMOGLOBIN 30.6 pg (27.0-31.0); MEAN CORPUSCULAR HGB CONC 34.8 g/dL (32.0-36.0); MEAN PLATELET VOLUME 7.3 fL (7.4-11.4); MONOCYTES # (AUTO) 0.9 10^3/uL (0.0-1.0); MONOCYTES % (AUTO) 8.5 %; NEUTROPHILS # (AUTO) 7.4 10^3/uL (1.5-6.6); NEUTROPHILS % (AUTO) 69.7 %; NUCLEATED RED BLOOD CELLS AUTO 0.1 /100WBC; RED BLOOD COUNT 5.09 10^6/uL (4.70-6.10); RED CELL DISTRIBUTION WIDTH 14.8 % (12.0-15.0); UNCORRECTED WHITE BLOOD COUNT 10.6 x10^3/uL; WHITE BLOOD COUNT 10.6 x10^3/uL (4.8-10.8)
[2017-04-11] MEDS ORDERED: METOPROLOL TARTRATE 25 MG TABLET ONE (01:16)
[2017-04-11] MEDS ORDERED: METOPROLOL 5 MG/5 ML VIAL IVP ONE (01:16)
[2017-04-11 01:20] LABS: ALBUMIN/GLOBULIN RATIO 1.4 (1.0-2.2); CALCIUM 8.8 mg/dL (8.5-10.3); CREATININE 0.9 mg/dL (0.6-1.2); POTASSIUM 3.4 mmol/L (3.5-5.0)
[2017-04-11] MEDS: METOPROLOL SUCCINATE 25 MG TABLET PO SCH (01:21)
[2017-04-11] MEDS: METOPROLOL 5 MG/5 ML VIAL IVP STA (01:21)
[2017-04-11] MEDS: SODIUM CHLORIDE 0.9% 1,000 ML IV ONE (01:23)
[2017-04-11 01:25] LABS: BILIRUBIN,TOTAL 1.2 mg/dL (0.2-1.0); TOTAL PROTEIN 6.9 g/dL (6.7-8.2)
--- NOTE | 2017-04-11 01:30 | XRAY Preliminary Report ---
Exam: XR CHEST 1 VIEW IMPRESSION: Stable negative single view chest. [facility] SITE ID: [id number]
--- NOTE | 2017-04-11 01:33 | XRAY Report ---
EXAM: CHEST RADIOGRAPHY EXAM DATE: 04/11/2017 01:14 AM. CLINICAL HISTORY: Chest pain. COMPARISON: 03/26/2017. TECHNIQUE: 1 view. FINDINGS: Lungs/Pleura: No focal opacities evident. No pleural effusion. No pneumothorax. Mediastinum: Within exam limitations, the cardiomediastinal contour is normal. Other: Old left clavicle fracture. IMPRESSION: Stable negative single view chest. [facility] Referring Provider Line: [phone] SITE ID: [id number]
[2017-04-11] MEDS ORDERED: MORPHINE 2 MG/ML SYRINGE ONE (01:39)
[2017-04-11] MEDS: MORPHINE 2 MG/ML SYRINGE IVP STA (01:40)
[2017-04-11] MEDS: FAMOTIDINE 20 MG/50 ML 50 ML IV ONE (02:41)
[2017-04-11] MEDS ORDERED: FAMOTIDINE 20 MG/50 ML 50 ML IV ONE (02:44)
[2017-04-11 04:18] VITALS: BP 124/81
== END 2017-04-11 04:18 | disposition home or self-care (01) ==
LOC: EDUNIT# → ED 00:40 → SUPCPDRO 00:40 → ED 04:18
DX: R07.89 Other chest pain (principal); K21.9 Gastro-esophageal reflux disease without esophagitis; R94.31 Abnormal electrocardiogram [ECG] [EKG]; I25.10 Atherosclerotic heart disease of native coronary artery without angina pectoris; I25.2 Old myocardial infarction; Z95.5 Presence of coronary angioplasty implant and graft
CPT/HCPCS: 36415; 71010; 80053; 80320; 83690; 84484; 85025; 93005; 96361; 96365; 96375; 99284

== ENCOUNTER 2017-06-29 00:22 | Outpatient (CLI) | payer MEDICARE | END 2017-06-29 00:23 | disposition short-term general hospital (02) | LOC: EMS 00:22 | PROVIDERS: ATTEND Surgery | DX: R07.9 Chest pain, unspecified (principal) | CPT/HCPCS: A0425; A0427 ==

== ENCOUNTER 2017-07-11 23:57 | Outpatient (CLI) | payer MEDICARE | END 2017-07-11 23:58 | disposition critical access hospital (66) | LOC: EMS 23:57 | PROVIDERS: ATTEND Surgery | DX: L29.9 Pruritus, unspecified (principal); R21 Rash and other nonspecific skin eruption; R20.8 Other disturbances of skin sensation; R06.02 Shortness of breath | CPT/HCPCS: A0425; A0429 ==

== ENCOUNTER 2017-07-12 00:15 | Emergency (ER) | payer MEDICARE ==
--- NOTE | 2017-07-12 01:54 | ED Physician Documentation ---
PD HPI SKIN - Stated complaint Stated Complaint: RASH - Chief complaint Chief Complaint: General - History obtained from History obtained from: Patient - History of Present Illness Timing - onset: How many days ago (3) Timing - details: Gradual onset, Waxing and waning Pain level now: 4 Location: Bodywide Quality / character: Itchy, Burning Improved by: Other (no ameliorating factors) Worsened by (comment): COMMENT (no apparent inciting or exacerbating factors) Associated symptoms: No: Fever, Myalgias, Joint pain, Headache, Facial swelling , Dyspnea, Abd pain, N/V/D, Urinary sx Contributing factors: Unknown - Additional information Additional information: c/o diffuse burning and pruritic rash x 3 days Review of Systems Constitutional: denies: Fever, Chills, Myalgias, Sweats Cardiac: reports: Reviewed and negative Respiratory: reports: Reviewed and negative GI: reports: Reviewed and negative Skin: reports: Rash Musculoskeletal: reports: Back pain (chronic) PD PAST MEDICAL HISTORY - Past Medical History Cardiovascular: Coronary artery disease, [place] Respiratory: None, Sleep apnea Neuro: None Endocrine/Autoimmune: None GI: GERD : None HEENT: None Psych: None Musculoskeletal: Chronic back pain Derm: None - Past Surgical History Past Surgical History: Yes Ortho: Spine surgery Cardiovascular: Coronary stent - Present Medications Home Medications: Ambulatory Orders Medication Instructions Recorded Confirmed Aspirin [Bakari Chewable Aspirin] 81 mg ORAL DAILY 01/17/14 03/26/17 Clopidogrel Bisulfate [Plavix] 75 mg ORAL DAILY 01/17/14 03/26/17 Lisinopril [Zestril] 5 mg ORAL DAILY 01/17/14 03/26/17 Metoprolol Succinate [Toprol Xl] 25 mg ORAL BID 01/17/14 03/26/17 Nitroglycerin 0.4 mg SL Q5MIN PRN 01/17/14 03/26/17 Famotidine [Pepcid] 20 mg PO BID #60 tablet 09/20/15 03/26/17 Atorvastatin [Lipitor] 40 mg PO QPM 11/24/16 03/26/17 Oxycodone HCl/Acetaminophen 1 each PO TID PRN #25 tablet 03/02/17 03/26/17 [Percocet 7.5-325 mg Tablet] diazePAM [Diazepam] 5 mg PO TID PRN #20 tablet 03/02/17 03/26/17 Famotidine 20 mg PO BID #30 tablet 04/11/17 Lisinopril 5 mg PO DAILY #30 tablet 04/11/17 Metoprolol Succinate [Toprol Xl] 25 mg PO DAILY #30 tablet 04/11/17 diphenhydrAMINE [Benadryl] 25 - 50 mg PO Q6HR PRN #20 capsule 07/12/17 predniSONE [Deltasone] 40 mg PO DAILY 3 Days tablet 07/12/17 - Allergies Allergies/Adverse Reactions: Allergies Allergy/AdvReac Type Severity Reaction Status Date / Time No Known Drug Allergies Allergy Verified 04/03/17 21:05 - Social History Does the pt smoke?: Yes Smoking Status: Current every day smoker Does the pt drink ETOH?: Yes Does the pt have substance abuse?: No - Immunizations Immunizations are current?: No Immunizations: TDAP >10years/unknown - POLST Patient has POLST: No PD ED PE NORMAL - Vitals Vital signs reviewed: Yes - General General: Alert and oriented X 3, No acute distress, Well developed/nourished - Neck Neck: Supple, no meningeal sign - Cardiac Cardiac: RRR, No murmur - Respiratory Respiratory: No respiratory distress, Clear bilaterally - Derm Derm: Other (excoriations noted to BLE and LUE>RUE. No discrete exanthem noted, although there is blanching, confluent erythema on back and BLE. There are also discrete, square-shaped areas of erythema with central clearing on extremities and abdomen c/w recent EKG lead placement) - Extremities Extremities: No tenderness to palpate, No edema Results - Vitals Vitals: Vital Signs - 24 hr 07/12/17 07/12/17 07/12/17 00:23 02:23 04:02 Temperature 36.5 C 36.4 C L Heart Rate 71 70 65 Respiratory 18 18 18 Rate Blood Pressure 164/94 H 146/91 H 154/94 H O2 Saturation 98 98 99 Oxygen O2 Source Room air PD MEDICAL DECISION MAKING - ED course Complexity details: re-evaluated patient, considered differential, d/w patient ED course: given 1mg IM dilaudid for his back pain, which is chronic but worse than usual. Also benadryl 25mg, prednisone 40mg for possible allergic reaction. This seemed to provide some relief, both by appearance on reevaluation (appeared more comfortable and not scratching as frequently, and erythema is less pronounced) and by patient's report. Given a second dose of [id number] as well as 20mg more of prednisone. He has f/u arranged with PMD for . Departure - Departure Disposition: Home, Self Care Clinical Impression: Rash Condition: Good Instructions: ED Erythema Prescriptions: diphenhydrAMINE [Benadryl] 25 - 50 mg PO Q6HR PRN #20 capsule PRN Reason: Itching predniSONE [Deltasone] 40 mg PO DAILY 3 Days tablet Discharge Date/Time: 07/12/17 04:19
[2017-07-12] MEDS ORDERED: predniSONE 20 MG TABLET PO STA ×2 (02:11→03:54)
[2017-07-12] MEDS ORDERED: HYDROmorphone 1 MG/ML SYRINGE IM STA (02:11)
[2017-07-12] MEDS ORDERED: diphenhydrAMINE 25 MG CAPSULE PO STA ×2 (02:11→03:54)
[2017-07-12] MEDS ORDERED: LOPERAMIDE 2 MG CAPSULE PO STA (02:11)
[2017-07-12 04:03] VITALS: BP 154/94
== END 2017-07-12 04:19 | disposition home or self-care (01) ==
LOC: EDUNIT# → EDBD → ED 00:15
DX: R21 Rash and other nonspecific skin eruption (principal); I25.10 Atherosclerotic heart disease of native coronary artery without angina pectoris; I25.2 Old myocardial infarction; K21.9 Gastro-esophageal reflux disease without esophagitis; Z79.82 Long term (current) use of aspirin; F17.200 Nicotine dependence, unspecified, uncomplicated
CPT/HCPCS: 93005; 96372; 99283; A9270; J1170; J7512

== ENCOUNTER 2017-08-08 14:59 | Outpatient (CLI) | payer MEDICARE, MEDICAID | END 2017-08-08 15:00 | disposition critical access hospital (66) | LOC: EMS 14:59 | PROVIDERS: ATTEND Surgery | DX: R07.9 Chest pain, unspecified (principal) | CPT/HCPCS: A0425; A0427 ==

== ENCOUNTER 2017-08-08 15:17 | Emergency (ER) | payer MEDICARE, MEDICAID ==
[2017-08-08 16:00] LABS: BASOPHILS % (AUTO) 0.5 %; EOSINOPHILS # (AUTO) 0.3 10^3/uL (0.0-0.7); EOSINOPHILS % (AUTO) 5.4 %; HGB - HEMOGLOBIN 14.5 g/dL (14.0-18.0); LYMPHOCYTES # (AUTO) 1.9 10^3/uL (1.5-3.5); MEAN CORPUSCULAR HEMOGLOBIN 29.6 pg (27.0-31.0); MEAN CORPUSCULAR HGB CONC 35.1 g/dL (32.0-36.0); MEAN CORPUSCULAR VOLUME 84.4 fL (80.0-94.0); MEAN PLATELET VOLUME 7.7 fL (7.4-11.4); MONOCYTES # (AUTO) 0.6 10^3/uL (0.0-1.0); MONOCYTES % (AUTO) 9.7 %; NEUTROPHILS # (AUTO) 3.4 10^3/uL (1.5-6.6); NEUTROPHILS % (AUTO) 54.4 %; PLT - PLATELET COUNT 178 10^3/uL (130-450); RED BLOOD COUNT 4.88 10^6/uL (4.70-6.10); RED CELL DISTRIBUTION WIDTH 13.9 % (12.0-15.0); WHITE BLOOD COUNT 6.3 x10^3/uL (4.8-10.8)
--- NOTE | 2017-08-08 16:04 | XRAY Preliminary Report ---
Exam: XR CHEST 1 VIEW X-RAY IMPRESSION: No acute cardiopulmonary disease seen. Old granulomatous disease. [facility] SITE ID: [id number]
--- NOTE | 2017-08-08 16:04 | XRAY Report ---
EXAM: CHEST RADIOGRAPHY EXAM DATE: 08/08/2017 03:35 PM. CLINICAL HISTORY: Chest pain. COMPARISON: Chest 04/11/2017. TECHNIQUE: 1 view. FINDINGS: Lungs/Pleura: No focal opacities evident. No pleural effusion. No pneumothorax. Mediastinum: No cardiac enlargement. There appear to be left-sided calcified aortopulmonary window me diastinal lymph nodes, similar to the prior. IMPRESSION: No acute cardiopulmonary disease seen. Old granulomatous disease. [facility] Referring Provider Line: [phone] SITE ID: [id number]
[2017-08-08 16:10] LABS: ALBUMIN 3.8 g/dL (3.2-5.5); ALBUMIN/GLOBULIN RATIO 1.5 (1.0-2.2); BILIRUBIN,TOTAL 0.8 mg/dL (0.2-1.0); CALCIUM 8.6 mg/dL (8.5-10.3); CREATININE 0.7 mg/dL (0.6-1.2); TOTAL PROTEIN 6.3 g/dL (6.7-8.2)
--- NOTE | 2017-08-08 16:26 | ED Physician Documentation ---
PD HPI CHEST PAIN - Stated complaint Stated Complaint: CP - Chief complaint Chief Complaint: Cardiac - History obtained from History obtained from: Patient, EMS - History of Present Illness Timing - onset: Other (ongoing for several days. States starts on the L sided in the morning, moves to the R side at night.) Timing - duration: Days Timing - details: Gradual onset, Still present, Waxing and waning Pain level max: 8 Pain level now: 8 Quality: Aching, Pain Location: Left chest, Right chest, Epigastric Radiation: Back Improved by: Nothing Worsened by: Other (nothing) Associated symptoms: No: Shortness of air, Diaphoresis, Nausea, Vomiting, Feeling faint / dizzy, General Weakness, Palpitations, Cough Similar symptoms before: Diagnosis (GERD, gastritis, ACS) - Additional information Additional information: out of his oxycodone today for his chronic pain as well. is still drinking beer daily. Review of Systems Ten Systems: 10 systems reviewed and negative Constitutional: denies: Fever, Chills Ears: denies: Ear pain Nose: denies: Rhinorrhea / runny nose, Congestion Throat: denies: Sore throat Cardiac: denies: Palpitations Respiratory: denies: Cough, Hemoptysis, Wheezing GI: denies: Vomiting, Diarrhea, Hematemesis, Bloody / black stool : denies: Dysuria Skin: denies: Rash Musculoskeletal: reports: Back pain (chronic and unchanged) Neurologic: denies: Focal weakness, Numbness, Confused, Altered mental status PD PAST MEDICAL HISTORY - Past Medical History Cardiovascular: Coronary artery disease, [place] Respiratory: None, Sleep apnea Neuro: None Endocrine/Autoimmune: None GI: GERD : None HEENT: None Psych: None Musculoskeletal: Chronic back pain Derm: None - Past Surgical History Past Surgical History: Yes Ortho: Spine surgery Cardiovascular: Coronary stent - Present Medications Home Medications: Ambulatory Orders Medication Instructions Recorded Confirmed Aspirin [Bakari Chewable Aspirin] 81 mg ORAL DAILY 01/17/14 03/26/17 Clopidogrel Bisulfate [Plavix] 75 mg ORAL DAILY 01/17/14 03/26/17 Lisinopril [Zestril] 5 mg ORAL DAILY 01/17/14 03/26/17 Metoprolol Succinate [Toprol Xl] 25 mg ORAL BID 01/17/14 03/26/17 Nitroglycerin 0.4 mg SL Q5MIN PRN 01/17/14 03/26/17 Famotidine [Pepcid] 20 mg PO BID #60 tablet 09/20/15 03/26/17 Atorvastatin [Lipitor] 40 mg PO QPM 11/24/16 03/26/17 Oxycodone HCl/Acetaminophen 1 each PO TID PRN #25 tablet 03/02/17 03/26/17 [Percocet 7.5-325 mg Tablet] diazePAM [Diazepam] 5 mg PO TID PRN #20 tablet 03/02/17 03/26/17 Famotidine 20 mg PO BID #30 tablet 04/11/17 Lisinopril 5 mg PO DAILY #30 tablet 04/11/17 Metoprolol Succinate [Toprol Xl] 25 mg PO DAILY #30 tablet 04/11/17 diphenhydrAMINE [Benadryl] 25 - 50 mg PO Q6HR PRN #20 capsule 07/12/17 predniSONE [Deltasone] 40 mg PO DAILY 3 Days tablet 07/12/17 Sucralfate [Carafate] 1 gm PO ACHS #60 tablet 08/08/17 - Allergies Allergies/Adverse Reactions: Allergies Allergy/AdvReac Type Severity Reaction Status Date / Time No Known Drug Allergies Allergy Verified 08/08/17 15:24 - Social History Does the pt smoke?: Yes Smoking Status: Current every day smoker Does the pt drink ETOH?: Yes Does the pt have substance abuse?: No - Immunizations Immunizations are current?: No Immunizations: TDAP >10years/unknown - POLST Patient has POLST: No PD ED PE NORMAL - Vitals Vital signs reviewed: Yes - General General: Alert and oriented X 3, No acute distress, Well developed/nourished - HEENT HEENT: PERRL, Moist mucous membranes - Neck Neck: Supple, no meningeal sign, No JVD, No bruit - Cardiac Cardiac: RRR, Strong equal pulses - Respiratory Respiratory: No respiratory distress, Clear bilaterally - Abdomen Abdomen: Soft, Non distended, Other (TTP epigastric without peritoneal signs.) - Back Back: No CVA TTP, No spinal TTP - Derm Derm: Warm and dry - Extremities Extremities: No edema, No calf tenderness / cord - Neuro Neuro: Alert and oriented X 3 - Psych Psych: Normal mood, Normal affect Results - Vitals Vitals: Vital Signs - 24 hr 08/08/17 08/08/17 15:18 16:40 Temperature 36.6 C Heart Rate 76 74 Respiratory 18 16 Rate Blood Pressure 130/85 H 123/76 O2 Saturation 99 97 Oxygen O2 Source Room air - EKG (time done) 1521 Rate: Rate (enter#) (76) Rhythm: NSR [place]: Normal Intervals: Normal [place] QRS: Normal Ischemia: Q waves (II, III, aVF) Compare to prior EKG: Unchanged from prior EKG - Labs Labs: Laboratory Tests 08/08/17 08/08/17 08/08/17 15:50 15:50 15:50 WBC 6.3 RBC 4.88 Hgb 14.5 Hct 41.2 L MCV 84.4 MCH 29.6 MCHC 35.1 RDW 13.9 Plt Count 178 MPV 7.7 Neut # 3.4 Lymph # 1.9 [place] # 0.6 Eos # 0.3 Baso # 0.0 Absolute Nucleated RBC 0.00 Nucleated RBC % 0.0 Sodium 142 Potassium 3.3 L Chloride 105 Carbon Dioxide 24 Anion Gap 13.0 BUN 5 L Creatinine 0.7 Estimated GFR (MDRD) 115 Glucose 91 Calcium 8.6 Total Bilirubin 0.8 AST 31 ALT 31 Alkaline Phosphatase 70 Troponin I < 0.04 Total Protein 6.3 L Albumin 3.8 Globulin 2.5 Albumin/Globulin Ratio 1.5 Lipase 25 - Rads (name of study) cxr Radiology: Prelim report reviewed, EMP read contemporaneously, See rad report ( no acute abnormality) PD MEDICAL DECISION MAKING - ED course Complexity details: reviewed old records, reviewed results, re-evaluated patient , considered differential (No ST elevation [place], no aortic dissection, no PE, no tension pneumothorax, no aortic aneurysm), d/w patient ED course: Patient presents to the emergency department with epigastric pain Seems more consistent with GERD and gastritis than cardiac. Resolved with GI cocktail and 1 Percocet. I informed him we would not use injectable narcotics for his chronic pain. No acute findings on EKG. Negative troponin despite several days of consistent pain. We will have him follow-up with his doctor for further evaluation and care. No evidence of aortic dissection or aneurysm. Patient was also counseled to stop drinking alcohol. Patient counseled regarding signs and symptoms for which I believe and urgent re-evaluation would be necessary. Patient with good understanding of and agreement to plan and is comfortable going home at this time This document was made in part using voice recognition software. While efforts are made to proofread this document, sound alike and grammatical errors may occur. Departure - Departure Disposition: 01 Home, Self Care Clinical Impression: Atypical chest pain Abdominal pain Qualifiers: Abdominal location: epigastric Qualified Code(s): R10.13 - Epigastric pain Condition: Good Instructions: ED Chest Pain Atypical Unkn Cause, ED Abdominal Pain Unkn Cause Male Follow-Up: your,doctor in 3 days as scheduled [Other] Prescriptions: Sucralfate [Carafate] 1 gm PO ACHS #60 tablet Comments: The cause of your symptoms is unclear today, but appear more related to your stomach and your heart. You would likely benefit from an endoscopy if you have not had one, discuss this with your doctor to arrange this. Discharge Date/Time: 08/08/17 17:02
[2017-08-08] MEDS ORDERED: MAG HYDROX/AL HYDROX/SIMETH 30 ML UDC PO STA (16:35)
[2017-08-08] MEDS ORDERED: oxyCOD/ACETAMIN 5 MG/325 MG TABLET PO STA (16:35)
[2017-08-08] MEDS ORDERED: SUCRALFATE 1 GM/10 ML UDC PO STA (16:35)
[2017-08-08] MEDS ORDERED: LIDOCAINE VISCOUS 2% 15 ML UDC MM STA (16:35)
[2017-08-08 16:52] VITALS: BP 123/76
== END 2017-08-08 17:02 | disposition home or self-care (01) ==
LOC: EDUNIT# → ED 15:17
DX: R07.89 Other chest pain (principal); R10.13 Epigastric pain; I25.10 Atherosclerotic heart disease of native coronary artery without angina pectoris; I25.2 Old myocardial infarction; Z79.82 Long term (current) use of aspirin; Z95.5 Presence of coronary angioplasty implant and graft; F17.200 Nicotine dependence, unspecified, uncomplicated
CPT/HCPCS: 36415; 71045; 80053; 83690; 84484; 85025; 93005; 99284; A9270

== ENCOUNTER 2017-09-02 11:01 | Outpatient (CLI) | payer MEDICARE, MEDICAID | END 2017-09-02 11:02 | disposition short-term general hospital (02) | LOC: EMS 11:01 | PROVIDERS: ATTEND Surgery | DX: R07.9 Chest pain, unspecified (principal); R06.02 Shortness of breath; R53.1 Weakness | CPT/HCPCS: A0425; A0427 ==

== ENCOUNTER 2017-09-06 22:25 | Outpatient (CLI) | payer MEDICARE, MEDICAID | END 2017-09-06 22:26 | disposition critical access hospital (66) | LOC: EMS 22:25 | PROVIDERS: ATTEND Surgery | DX: R07.9 Chest pain, unspecified (principal); R06.02 Shortness of breath | CPT/HCPCS: A0425; A0427 ==

== ENCOUNTER 2017-09-06 22:44 | Emergency (ER) | payer MEDICARE, MEDICAID ==
[2017-09-07 00:38] LABS: BASOPHILS % (AUTO) 0.3 %; EOSINOPHILS # (AUTO) 0.3 10^3/uL (0.0-0.7); HGB - HEMOGLOBIN 14.5 g/dL (14.0-18.0); LYMPHOCYTES # (AUTO) 2.6 10^3/uL (1.5-3.5); LYMPHOCYTES % (AUTO) 34.9 %; MEAN CORPUSCULAR HEMOGLOBIN 28.8 pg (27.0-31.0); MEAN CORPUSCULAR HGB CONC 33.9 g/dL (32.0-36.0); MEAN CORPUSCULAR VOLUME 84.7 fL (80.0-94.0); MEAN PLATELET VOLUME 7.9 fL (7.4-11.4); MONOCYTES # (AUTO) 0.6 10^3/uL (0.0-1.0); MONOCYTES % (AUTO) 8.5 %; NEUTROPHILS # (AUTO) 3.9 10^3/uL (1.5-6.6); NEUTROPHILS % (AUTO) 52.3 %; PLT - PLATELET COUNT 225 10^3/uL (130-450); RED BLOOD COUNT 5.05 10^6/uL (4.70-6.10); RED CELL DISTRIBUTION WIDTH 14.3 % (12.0-15.0); WHITE BLOOD COUNT 7.5 x10^3/uL (4.8-10.8)
[2017-09-07 00:45] LABS: ALBUMIN 3.9 g/dL (3.2-5.5); ALBUMIN/GLOBULIN RATIO 1.3 (1.0-2.2); BILIRUBIN,TOTAL 0.7 mg/dL (0.2-1.0); CALCIUM 8.3 mg/dL (8.5-10.3); CREATININE 1.9 mg/dL (0.6-1.2); TOTAL PROTEIN 6.8 g/dL (6.7-8.2)
[2017-09-07] MEDS ORDERED: SODIUM CHLORIDE 0.9% 1,000 ML IV STA (00:57)
--- NOTE | 2017-09-07 02:55 | ED Physician Documentation ---
PD HPI CHEST PAIN - Stated complaint Stated Complaint: CP - Chief complaint Chief Complaint: Cardiac - History obtained from History obtained from: Patient - History of Present Illness Timing - onset: Today (this morning) Timing - onset during: Rest Timing - duration: Hours Timing - details: Gradual onset, Intermittant Pain level now: 4 Quality: Pain Location: Substernal, Left chest, Right chest Radiation: No: Jaw, Neck, Back, Abdominal, Left upper extremity, Right upper extremity Improved by: Nothing Worsened by: Other (no exacerbating factors) Associated symptoms: No: Shortness of air, Diaphoresis, Nausea, Vomiting, Feeling faint / dizzy, General Weakness, Palpitations, Cough Similar symptoms before: Other (has had CAD requiring stents, but also has had ED visits for CP with unremarkable w/u.) Recently seen: Admitted (admitted over this past weekend to [facility] for CP) Review of Systems Constitutional: reports: Reviewed and negative Cardiac: reports: Chest pain / pressure. denies: Palpitations, Pedal edema, Calf pain Respiratory: reports: Reviewed and negative GI: reports: Reviewed and negative : denies: Dysuria, Frequency Musculoskeletal: reports: Reviewed and negative Neurologic: reports: Reviewed and negative PD PAST MEDICAL HISTORY - Past Medical History Past Medical History: Yes Cardiovascular: Coronary artery disease, [place] Respiratory: None, Sleep apnea Neuro: None Endocrine/Autoimmune: None GI: GERD : None HEENT: None Psych: None Musculoskeletal: Chronic back pain Derm: None - Past Surgical History Past Surgical History: Yes Ortho: Spine surgery Cardiovascular: Coronary stent - Present Medications Home Medications: Ambulatory Orders Medication Instructions Recorded Confirmed Aspirin [Bakari Chewable Aspirin] 81 mg ORAL DAILY 01/17/14 03/26/17 Clopidogrel Bisulfate [Plavix] 75 mg ORAL DAILY 01/17/14 03/26/17 Lisinopril [Zestril] 5 mg ORAL DAILY 01/17/14 03/26/17 Metoprolol Succinate [Toprol Xl] 25 mg ORAL BID 01/17/14 03/26/17 Nitroglycerin 0.4 mg SL Q5MIN PRN 01/17/14 03/26/17 Famotidine [Pepcid] 20 mg PO BID #60 tablet 09/20/15 03/26/17 Atorvastatin [Lipitor] 40 mg PO QPM 11/24/16 03/26/17 Oxycodone HCl/Acetaminophen 1 each PO TID PRN #25 tablet 03/02/17 03/26/17 [Percocet 7.5-325 mg Tablet] diazePAM [Diazepam] 5 mg PO TID PRN #20 tablet 03/02/17 03/26/17 Famotidine 20 mg PO BID #30 tablet 04/11/17 Lisinopril 5 mg PO DAILY #30 tablet 04/11/17 Metoprolol Succinate [Toprol Xl] 25 mg PO DAILY #30 tablet 04/11/17 diphenhydrAMINE [Benadryl] 25 - 50 mg PO Q6HR PRN #20 capsule 07/12/17 predniSONE [Deltasone] 40 mg PO DAILY 3 Days tablet 07/12/17 Sucralfate [Carafate] 1 gm PO ACHS #60 tablet 08/08/17 - Allergies Allergies/Adverse Reactions: Allergies Allergy/AdvReac Type Severity Reaction Status Date / Time No Known Drug Allergies Allergy Verified 09/06/17 23:02 - Social History Does the pt smoke?: Yes Smoking Status: Current every day smoker Does the pt drink ETOH?: Yes Does the pt have substance abuse?: No - Immunizations Immunizations are current?: No Immunizations: TDAP >10years/unknown - POLST Patient has POLST: No PD ED PE NORMAL - Vitals Vital signs reviewed: Yes - General General: Alert and oriented X 3, No acute distress, Well developed/nourished - HEENT HEENT: Moist mucous membranes - Cardiac Cardiac: RRR, No murmur, No gallop, No rub - Respiratory Respiratory: No respiratory distress, Clear bilaterally - Abdomen Abdomen: Soft, Non tender - Back Back: No CVA TTP - Extremities Extremities: No edema Results - Vitals Vitals: Oxygen O2 Source Room air - EKG (time done) No standard instances Rate: Tachy (105) Rhythm: Sinus tachycardia [place]: LAD Intervals: Normal [place] QRS: Normal Ischemia: Q waves (inferior leads) - Labs Labs: Laboratory Tests 09/07/17 09/07/17 09/07/17 00:25 00:25 00:25 WBC 7.5 RBC 5.05 Hgb 14.5 Hct 42.8 MCV 84.7 MCH 28.8 MCHC 33.9 RDW 14.3 Plt Count 225 MPV 7.9 Neut # 3.9 Lymph # 2.6 [place] # 0.6 Eos # 0.3 Baso # 0.0 Absolute Nucleated RBC 0.00 Nucleated RBC % 0.0 Sodium 142 Potassium 4.0 Chloride 109 Carbon Dioxide 24 Anion Gap 9.0 BUN 13 Creatinine 1.9 H Estimated GFR (MDRD) 36 L Glucose 107 H Calcium 8.3 L Total Bilirubin 0.7 AST 31 ALT 25 Alkaline Phosphatase 81 Troponin I < 0.04 Total Protein 6.8 Albumin 3.9 Globulin 2.9 Albumin/Globulin Ratio 1.3 Lipase 43 PD MEDICAL DECISION MAKING - ED course Complexity details: reviewed old records, reviewed results, re-evaluated patient , considered differential, d/w patient ED course: CXR not performed, as he had this during [facility] stay few days ago, results reviewed and unremarkable Departure - Departure Disposition: 01 Home, Self Care Clinical Impression: Chest pain Condition: Good Instructions: ED Chest Pain Atypical Unkn Cause Follow-Up: [facility] [Provider Group] [facility] [Provider Group] Discharge Date/Time: 09/07/17 05:55
[2017-09-07 05:05] VITALS: BP 123/78
[2017-09-07] MEDS ORDERED: oxyCODONE 5 MG TABLET PO STA (05:49)
== END 2017-09-07 05:55 | disposition home or self-care (01) ==
LOC: EDUNIT# → ED 22:44
DX: R07.9 Chest pain, unspecified (principal); I25.10 Atherosclerotic heart disease of native coronary artery without angina pectoris; I25.2 Old myocardial infarction; Z79.02 Long term (current) use of antithrombotics/antiplatelets; G47.30 Sleep apnea, unspecified; K21.9 Gastro-esophageal reflux disease without esophagitis; Z79.82 Long term (current) use of aspirin; F17.200 Nicotine dependence, unspecified, uncomplicated; Z95.5 Presence of coronary angioplasty implant and graft
CPT/HCPCS: 36415; 80053; 83690; 84484; 85025; 93005; 96360; 99284; A9270

== ENCOUNTER 2017-10-07 20:10 | Outpatient (CLI) | payer MEDICARE, MEDICAID | END 2017-10-07 20:11 | disposition critical access hospital (66) | LOC: EMS 20:10 | PROVIDERS: ATTEND Surgery | DX: R10.9 Unspecified abdominal pain (principal); R06.00 Dyspnea, unspecified | CPT/HCPCS: A0425; A0429 ==

== ENCOUNTER 2017-10-07 20:28 | Emergency (ER) | payer MEDICARE, MEDICAID ==
[2017-10-07] MEDS ORDERED: MORPHINE 10 MG/ML VIAL IVP STA (20:50)
[2017-10-07 21:25] LABS: BASOPHILS % (AUTO) 0.5 %; EOSINOPHILS # (AUTO) 0.6 10^3/uL (0.0-0.7); EOSINOPHILS % (AUTO) 6.8 %; HGB - HEMOGLOBIN 14.5 g/dL (14.0-18.0); LYMPHOCYTES # (AUTO) 2.4 10^3/uL (1.5-3.5); LYMPHOCYTES % (AUTO) 29.6 %; MEAN CORPUSCULAR HEMOGLOBIN 28.8 pg (27.0-31.0); MEAN CORPUSCULAR HGB CONC 33.8 g/dL (32.0-36.0); MEAN CORPUSCULAR VOLUME 85.4 fL (80.0-94.0); MEAN PLATELET VOLUME 8.3 fL (7.4-11.4); MONOCYTES # (AUTO) 0.6 10^3/uL (0.0-1.0); MONOCYTES % (AUTO) 6.8 %; NEUTROPHILS # (AUTO) 4.6 10^3/uL (1.5-6.6); NEUTROPHILS % (AUTO) 56.3 %; PLT - PLATELET COUNT 197 10^3/uL (130-450); RED BLOOD COUNT 5.03 10^6/uL (4.70-6.10); RED CELL DISTRIBUTION WIDTH 14.5 % (12.0-15.0); WHITE BLOOD COUNT 8.2 x10^3/uL (4.8-10.8)
[2017-10-07 21:38] LABS: ALBUMIN 3.8 g/dL (3.2-5.5); ALBUMIN/GLOBULIN RATIO 1.4 (1.0-2.2); BILIRUBIN,TOTAL 0.5 mg/dL (0.2-1.0); CALCIUM 8.3 mg/dL (8.5-10.3); CREATININE 0.9 mg/dL (0.6-1.2); TOTAL PROTEIN 6.5 g/dL (6.7-8.2)
[2017-10-07] MEDS ORDERED: IOPAMIDOL-300 100 ML VIAL ONE (21:47)
--- NOTE | 2017-10-07 21:51 | XRAY Report ---
EXAM: CHEST RADIOGRAPHY EXAM DATE: 10/07/2017 09:45 PM. CLINICAL HISTORY: Chest pain. COMPARISON: 08/08/2017 chest x-ray. TECHNIQUE: 1 view. FINDINGS: Lungs/Pleura: No focal opacities evident. No pleural effusion. No pneumothorax. Mediastinum: Within exam limitations, the cardiomediastinal contour is normal. Other: None. IMPRESSION: Normal single view chest. [facility] Referring Provider Line: [phone] SITE ID: [id number]
--- NOTE | 2017-10-07 21:51 | XRAY Preliminary Report ---
Exam: XR CHEST 1 VIEW X-RAY IMPRESSION: Normal single view chest. [facility] SITE ID: [id number]
[2017-10-07] MEDS ORDERED: IOPAMIDOL-300 100 ML VIAL IVP ONE (22:14)
--- NOTE | 2017-10-07 22:36 | CT Report ---
EXAM: CT ABDOMEN AND PELVIS EXAM DATE: 10/07/2017 10:15 PM. CLINICAL HISTORY: Left lower quadrant pain. COMPARISONS: 03/17/2017 CT. TECHNIQUE: Routine helical CT imaging was performed through the abdomen and pelvis. IV contrast: 100 ML ISOVUE 300. Enteric contrast: No. Reconstructions: Coronal and sagittal. In accordance with CT protocol optimization, one or more of the following dose reduction techniques w ere utilized for this exam: automated exposure control, adjustment of mA and/or KV based on patient s ize, or use of iterative reconstructive technique. FINDINGS: Lung Bases: Unremarkable. Liver: Decreased hepatic attenuation. No focal liver lesions. Gallbladder/Bile Ducts: Unremarkable. Spleen: Normal. Pancreas: Normal. Adrenal Glands: Normal. Kidneys: Normal. No masses or hydronephrosis. Peritoneal Cavity/Bowel: Diverticulosis without diverticulitis. No bowel obstruction, free air or flu id collections. The appendix is well visualized and normal. Pelvic Organs: Normal. The bladder and visualized pelvic organs are within normal limits. Small fat-c ontaining bilateral inguinal hernias. Vasculature: No aneurysms or other significant abnormality. Bones: No significant abnormality. Other: None. IMPRESSION: 1. No acute inflammatory changes within the abdomen and pelvis. 2. Fatty liver. 3. Fat-containing inguinal hernias. [facility] Referring Provider Line: [phone] SITE ID: [id number]
--- NOTE | 2017-10-07 22:36 | CT Preliminary Report ---
Exam: CT ABDOMEN/PELVIS W/ IMPRESSION: 1. No acute inflammatory changes within the abdomen and pelvis. 2. Fatty liver. 3. Fat-containing inguinal hernias. [facility] SITE ID: [id number]
--- NOTE | 2017-10-07 22:37 | ED Physician Documentation ---
PD HPI ABD PAIN - Stated complaint Stated Complaint: ABD PAIN - Chief complaint Chief Complaint: Abd Pain - History obtained from History obtained from: Patient, Family, EMS - History of Present Illness Timing - onset: How many hours ago (2), Today Timing - details: Abrupt onset, Still present Quality: Cramping, Aching, Stabbing Location: Epigastric, LLQ Radiation: Chest Associated symptoms: Nausea. No: Fever, Vomiting, Hematemesis, Diarrhea, Constipation, Dysuria, Hematuria Recently seen: Not recently seen - Additional information Additional information: patient is a 61 year old male presenting to the emergency department for abdominal pain. According to patient and ems the symptoms started about two hours ago. The pain is mostly in his left lower quadrant and it radiates across his abdomen. patient states that he feels full and distended. Review of Systems Constitutional: denies: Fever, Chills Eyes: reports: Reviewed and negative Ears: reports: Reviewed and negative Nose: reports: Reviewed and negative Cardiac: denies: Chest pain / pressure, Palpitations GI: reports: Abdominal Pain, Abdominal Swelling. denies: Nausea, Vomiting, Constipation, Diarrhea : denies: Dysuria, Frequency Skin: denies: Rash, Lesions Neurologic: denies: Generalized weakness, Focal weakness Immunocompromised: denies: Immunocompromised PD PAST MEDICAL HISTORY - Past Medical History Cardiovascular: Coronary artery disease, [place] Respiratory: None, Sleep apnea Neuro: None Endocrine/Autoimmune: None GI: GERD : None HEENT: None Psych: None Musculoskeletal: Chronic back pain Derm: None - Past Surgical History Past Surgical History: Yes Ortho: Spine surgery Cardiovascular: Coronary stent - Present Medications Home Medications: Ambulatory Orders Medication Instructions Recorded Confirmed Aspirin [Bakari Chewable Aspirin] 81 mg ORAL DAILY 01/17/14 03/26/17 Clopidogrel Bisulfate [Plavix] 75 mg ORAL DAILY 01/17/14 03/26/17 Lisinopril [Zestril] 5 mg ORAL DAILY 01/17/14 03/26/17 Metoprolol Succinate [Toprol Xl] 25 mg ORAL BID 01/17/14 03/26/17 Nitroglycerin 0.4 mg SL Q5MIN PRN 01/17/14 03/26/17 Famotidine [Pepcid] 20 mg PO BID #60 tablet 09/20/15 03/26/17 Atorvastatin [Lipitor] 40 mg PO QPM 11/24/16 03/26/17 Oxycodone HCl/Acetaminophen 1 each PO TID PRN #25 tablet 03/02/17 03/26/17 [Percocet 7.5-325 mg Tablet] diazePAM [Diazepam] 5 mg PO TID PRN #20 tablet 03/02/17 03/26/17 Famotidine 20 mg PO BID #30 tablet 04/11/17 Lisinopril 5 mg PO DAILY #30 tablet 04/11/17 Metoprolol Succinate [Toprol Xl] 25 mg PO DAILY #30 tablet 04/11/17 diphenhydrAMINE [Benadryl] 25 - 50 mg PO Q6HR PRN #20 capsule 07/12/17 predniSONE [Deltasone] 40 mg PO DAILY 3 Days tablet 07/12/17 Sucralfate [Carafate] 1 gm PO ACHS #60 tablet 08/08/17 - Allergies Allergies/Adverse Reactions: Allergies Allergy/AdvReac Type Severity Reaction Status Date / Time No Known Drug Allergies Allergy Verified 10/07/17 21:06 - Social History Does the pt smoke?: Yes Smoking Status: Current every day smoker Does the pt drink ETOH?: Yes Does the pt have substance abuse?: No - Immunizations Immunizations are current?: No Immunizations: TDAP >10years/unknown - POLST Patient has POLST: No PD ED PE NORMAL - HEENT HEENT: Atraumatic - Cardiac Cardiac: RRR, No murmur - Respiratory Respiratory: No respiratory distress, Clear bilaterally - Abdomen Abdomen: Soft - Derm Derm: Normal color, Warm and dry - Extremities Extremities: No deformity - Neuro Neuro: Alert and oriented X 3, No motor deficit, Normal speech Eye Opening: Spontaneous PD ED PE EXPANDED - General General: Alert, In Pain - HEENT HEENT: Dry mucous membranes - Abdomen Abdomen: Tender to palpation, Periumbilical, LLQ. No: Rebound, Guarding Results - Vitals Vitals: Vital Signs - 24 hr 10/07/17 10/07/17 10/07/17 21:03 21:38 22:29 Temperature 37.2 C Heart Rate 78 79 74 Respiratory 20 15 14 Rate Blood Pressure 123/90 H 151/83 H 144/88 H O2 Saturation 99 97 96 Oxygen O2 Source Room air - EKG (time done) 2039 Rate: Rate (enter#) (81) Rhythm: NSR [place]: Normal Ischemia: Q waves Compare to prior EKG: Unchanged from prior EKG - Labs Labs: Laboratory Tests 10/07/17 10/07/17 10/07/17 21:14 21:14 21:14 WBC 8.2 RBC 5.03 Hgb 14.5 Hct 43.0 MCV 85.4 MCH 28.8 MCHC 33.8 RDW 14.5 Plt Count 197 MPV 8.3 Neut # 4.6 Lymph # 2.4 [place] # 0.6 Eos # 0.6 Baso # 0.0 Absolute Nucleated RBC 0.01 Nucleated RBC % 0.2 Sodium 138 Potassium 3.5 Chloride 105 Carbon Dioxide 24 Anion Gap 9.0 BUN 7 Creatinine 0.9 Estimated GFR (MDRD) 86 L Glucose 113 H Calcium 8.3 L Total Bilirubin 0.5 AST 46 H ALT 63 H Alkaline Phosphatase 94 Troponin I < 0.04 B-Natriuretic Peptide Total Protein 6.5 L Albumin 3.8 Globulin 2.7 Albumin/Globulin Ratio 1.4 Lipase 35 Urine Color Urine Clarity Urine pH Ur Specific [place] Urine Protein Urine Glucose (UA) Urine Ketones Urine Occult Blood Urine Nitrite Urine Bilirubin Urine Urobilinogen Ur Leukocyte Esterase Ur Microscopic Review Urine Culture Comments 10/07/17 10/07/17 21:14 23:10 WBC RBC Hgb Hct MCV MCH MCHC RDW Plt Count MPV Neut # Lymph # [place] # Eos # Baso # Absolute Nucleated RBC Nucleated RBC % Sodium Potassium Chloride Carbon Dioxide Anion Gap BUN Creatinine Estimated GFR (MDRD) Glucose Calcium Total Bilirubin AST ALT Alkaline Phosphatase Troponin I B-Natriuretic Peptide 121 H Total Protein Albumin Globulin Albumin/Globulin Ratio Lipase Urine Color YELLOW Urine Clarity CLEAR Urine pH 5.5 Ur Specific [place] <=1.005 Urine Protein NEGATIVE Urine Glucose (UA) NEGATIVE Urine Ketones NEGATIVE Urine Occult Blood NEGATIVE Urine Nitrite NEGATIVE Urine Bilirubin NEGATIVE Urine Urobilinogen 0.2 (NORMAL) Ur Leukocyte Esterase NEGATIVE Ur Microscopic Review NOT INDICATED Urine Culture Comments NOT INDICATED - Rads (name of study) chest x-ray Radiology: Final report received (no acute findings) ct abd pelvis Radiology: Final report received (fatty liver, no acute findings) PD MEDICAL DECISION MAKING - ED course Complexity details: reviewed old records, reviewed results, re-evaluated patient , considered differential, d/w patient, d/w family ED course: Patient was seen and examined at bedside. IV access was gained and labs were drawn. patient was treated with morphine 8mg and imaging was ordered. Patient' s blood work was within normal limits. When patient returned from imaging the results were reviewed. there were no major abnormalities, only fatty liver. Patient's urine was collected and within normal limits. Patient required no further work up and was stable for discharge with outpatient follow up. Departure - Departure Disposition: Home, Self Care Clinical Impression: Abdominal pain Condition: Good Instructions: ED Abdominal Pain Unkn Cause Male Follow-Up: primary,care provider [Other] - Within 3 Days Comments: Your diagnostics today were all within normal limits. there is no acute abnormality on your imaging or your blood work. It is difficult to say what is causing your pain exactly but it is unlikely life threatening. You should follow up with your doctor. You did have a fatty liver which is normally secondary to diet and alcohol. You should try increasing the amounts of fruits and vegetables you eat as well lean protein.
[2017-10-07 23:29] LABS: BILIRUBIN,URINE NEGATIVE (NEGATIVE); CLARITY,URINE CLEAR (CLEAR); GLUCOSE, URINE (UA) NEGATIVE (NEGATIVE); KETONES,URINE (UA) NEGATIVE (NEGATIVE); LEUKOCYTE ESTERASE, URINE NEGATIVE (NEGATIVE); NITRITE,URINE NEGATIVE (NEGATIVE); OCCULT BLOOD,URINE NEGATIVE (NEGATIVE); PH,URINE 5.5 PH (5.0-7.5); PROTEIN,URINE NEGATIVE (NEGATIVE); UROBILINOGEN,URINE 0.2 (NORMAL) E.U./dL (NORMAL)
[2017-10-07 23:48] VITALS: BP 134/80
== END 2017-10-07 23:48 | disposition home or self-care (01) ==
LOC: EDUNIT# → ED 20:28
DX: R10.32 Left lower quadrant pain (principal); K57.30 Diverticulosis of large intestine without perforation or abscess without bleeding; K40.20 Bilateral inguinal hernia, without obstruction or gangrene, not specified as recurrent; F17.200 Nicotine dependence, unspecified, uncomplicated; I25.10 Atherosclerotic heart disease of native coronary artery without angina pectoris; Z95.5 Presence of coronary angioplasty implant and graft; Z79.82 Long term (current) use of aspirin; Z79.02 Long term (current) use of antithrombotics/antiplatelets; K21.9 Gastro-esophageal reflux disease without esophagitis
CPT/HCPCS: 36415; 71045; 74177; 80053; 81003; 83690; 83880; 84484; 85025; 93005; 96374; 99283; 99284; Q9967; 81001; 87086

== ENCOUNTER 2017-12-18 08:26 | Outpatient (CLI) | payer MEDICARE, MEDICAID | END 2017-12-18 08:27 | disposition critical access hospital (66) | LOC: EMS 08:26 | PROVIDERS: ATTEND Surgery | DX: R06.02 Shortness of breath (principal); M54.9 Dorsalgia, unspecified; R07.9 Chest pain, unspecified | CPT/HCPCS: A0425; A0429 ==

== ENCOUNTER 2017-12-18 08:45 | Emergency (ER) | payer MEDICARE, MEDICAID ==
[2017-12-18] MEDS ORDERED: NITROGLYCERIN 2% PASTE TOP STA (08:57)
[2017-12-18] MEDS ORDERED: FUROSEMIDE 40 MG/4 ML VIAL IVP STA (08:57)
[2017-12-18 09:25] LABS: BASOPHILS % (AUTO) 0.6 %; EOSINOPHILS # (AUTO) 0.2 10^3/uL (0.0-0.7); EOSINOPHILS % (AUTO) 4.2 %; HGB - HEMOGLOBIN 13.1 g/dL (14.0-18.0); LYMPHOCYTES # (AUTO) 1.1 10^3/uL (1.5-3.5); LYMPHOCYTES % (AUTO) 26.8 %; MEAN CORPUSCULAR HEMOGLOBIN 29.9 pg (27.0-31.0); MEAN CORPUSCULAR HGB CONC 34.1 g/dL (32.0-36.0); MEAN CORPUSCULAR VOLUME 87.6 fL (80.0-94.0); MEAN PLATELET VOLUME 7.9 fL (7.4-11.4); MONOCYTES # (AUTO) 0.6 10^3/uL (0.0-1.0); MONOCYTES % (AUTO) 14.9 %; NEUTROPHILS # (AUTO) 2.1 10^3/uL (1.5-6.6); NEUTROPHILS % (AUTO) 53.5 %; PLT - PLATELET COUNT 87 10^3/uL (130-450); RED BLOOD COUNT 4.39 10^6/uL (4.70-6.10); RED CELL DISTRIBUTION WIDTH 14.8 % (12.0-15.0); WHITE BLOOD COUNT 3.9 x10^3/uL (4.8-10.8)
--- NOTE | 2017-12-18 09:34 | ED Physician Documentation ---
History of Present Illness - Stated complaint Stated Complaint: SOA - Chief complaint Chief Complaint: Resp - Additonal information Additional information: hx from pt and EMS and [id number] male hx CAD s/p stents and plavix last nuc stress test fall 2016 showed EF 48% and no wall motion abn or acute ischemia freq visits for CP and SOA states he recently saw cardio at [place] but does not know if any tests were done or what the results were out of some of his meds including BB for several days legs are swollen SOA and L upper chest rad to back burning chest pain present since last night at 5PM also LLQ abd pain denies fever cough NVD urinary sx Review of Systems Constitutional: denies: Fever Cardiac: reports: Chest pain / pressure Respiratory: reports: Dyspnea. denies: Cough GI: reports: Abdominal Pain. denies: Nausea, Vomiting, Diarrhea : denies: Dysuria Musculoskeletal: reports: Extremity swelling Neurologic: denies: Generalized weakness Endocrine: reports: Easy bruising / bleeding (plavix) PD PAST MEDICAL HISTORY - Past Medical History Cardiovascular: Coronary artery disease, [place] Respiratory: None, Sleep apnea Endocrine/Autoimmune: None GI: GERD : None HEENT: None Psych: None Musculoskeletal: Chronic back pain Derm: None - Past Surgical History Past Surgical History: Yes Ortho: Spine surgery Cardiovascular: Coronary stent - Present Medications Home Medications: Ambulatory Orders Medication Instructions Recorded Confirmed Aspirin [Bakari Chewable Aspirin] 81 mg ORAL DAILY 01/17/14 03/26/17 Clopidogrel Bisulfate [Plavix] 75 mg ORAL DAILY 01/17/14 03/26/17 Lisinopril [Zestril] 5 mg ORAL DAILY 01/17/14 03/26/17 Metoprolol Succinate [Toprol Xl] 25 mg ORAL BID 01/17/14 03/26/17 Nitroglycerin 0.4 mg SL Q5MIN PRN 01/17/14 03/26/17 Famotidine [Pepcid] 20 mg PO BID #60 tablet 09/20/15 03/26/17 Atorvastatin [Lipitor] 40 mg PO QPM 11/24/16 03/26/17 Oxycodone HCl/Acetaminophen 1 each PO TID PRN #25 tablet 03/02/17 03/26/17 [Percocet 7.5-325 mg Tablet] diazePAM [Diazepam] 5 mg PO TID PRN #20 tablet 03/02/17 03/26/17 Famotidine 20 mg PO BID #30 tablet 04/11/17 Lisinopril 5 mg PO DAILY #30 tablet 04/11/17 Metoprolol Succinate [Toprol Xl] 25 mg PO DAILY #30 tablet 04/11/17 diphenhydrAMINE [Benadryl] 25 - 50 mg PO Q6HR PRN #20 capsule 07/12/17 predniSONE [Deltasone] 40 mg PO DAILY 3 Days tablet 07/12/17 Sucralfate [Carafate] 1 gm PO ACHS #60 tablet 08/08/17 Albuterol Sulf [Ventolin Hfa 2 puffs INH Q4HR PRN #1 inhaler 10/07/17 Inhaler] raNITIdine [Zantac] 150 mg PO BID #60 tablet 12/18/17 - Allergies Allergies/Adverse Reactions: Allergies Allergy/AdvReac Type Severity Reaction Status Date / Time No Known Drug Allergies Allergy Verified 12/18/17 08:55 - Social History Does the pt smoke?: Yes Smoking Status: Current every day smoker Does the pt drink ETOH?: Yes Does the pt have substance abuse?: No - Immunizations Immunizations are current?: No Immunizations: TDAP >10years/unknown - POLST Patient has POLST: No PD ED PE NORMAL - Vitals Vital signs reviewed: Yes - General General: Alert and oriented X 3 - Neck Neck: Supple, no meningeal sign - Cardiac Cardiac: RRR - Respiratory Respiratory: No respiratory distress, Other (daisy mild wheezing and decreased) - Abdomen Abdomen: Soft, Other (TTP LLQ without rebound or guarding, no pulsatile mass) - Derm Derm: Normal color - Extremities Extremities: Other (+ daisy symm edema) - Neuro Neuro: Alert and oriented X 3 Results - Vitals Vitals: Vital Signs - 24 hr 12/18/17 12/18/17 08:45 10:26 Temperature 36.2 C L Heart Rate 79 74 Respiratory 18 14 Rate Blood Pressure 156/104 H 148/89 H O2 Saturation 100 97 Oxygen O2 Source Room air - EKG (time done) 0851 Rate: Rate (enter#) Rhythm: NSR (71) [place]: Normal Intervals: Normal [place] QRS: Normal Ischemia: Q waves (inferior), Non specific changes (flat Ts diffusely) - Labs Labs: Laboratory Tests 12/18/17 12/18/17 12/18/17 09:10 09:10 09:10 WBC 3.9 L RBC 4.39 L Hgb 13.1 L Hct 38.5 L MCV 87.6 MCH 29.9 MCHC 34.1 RDW 14.8 Plt Count 87 L MPV 7.9 Neut # (Auto) 2.1 Lymph # (Auto) 1.1 L [place] # (Auto) 0.6 Eos # (Auto) 0.2 Baso # (Auto) 0.0 Absolute Nucleated RBC 0.00 Nucleated RBC % 0.1 Sodium 134 L Potassium 3.8 Chloride 100 L Carbon Dioxide 27 Anion Gap 7.0 BUN 10 Creatinine 0.7 Estimated GFR (MDRD) 114 Glucose 132 H Calcium 8.6 Total Bilirubin 1.0 AST 52 H ALT 63 H Alkaline Phosphatase 89 Troponin I < 0.04 B-Natriuretic Peptide Total Protein 6.4 L Albumin 3.5 Globulin 2.9 Albumin/Globulin Ratio 1.2 Lipase 26 12/18/17 09:10 WBC RBC Hgb Hct MCV MCH MCHC RDW Plt Count MPV Neut # (Auto) Lymph # (Auto) [place] # (Auto) Eos # (Auto) Baso # (Auto) Absolute Nucleated RBC Nucleated RBC % Sodium Potassium Chloride Carbon Dioxide Anion Gap BUN Creatinine Estimated GFR (MDRD) Glucose Calcium Total Bilirubin AST ALT Alkaline Phosphatase Troponin I B-Natriuretic Peptide 24 Total Protein Albumin Globulin Albumin/Globulin Ratio Lipase - Rads (name of study) CXR Radiology: See rad report (NACPD) CT AP Radiology: See rad report (no acute process -spelnomegaly fatty liver fat containing hernia diverticulosis ut no acute) CTPA chest Radiology: See rad report (no acute PE, prior granulomatous dz, fatty liver, splenomegaly) PD MEDICAL DECISION MAKING - ED course ED course: pt reports cp and soa since last night 5 pm so trop in ED 12+hr later rules out ACS also work up shows no PE disscetion pna pneumo effusion etc LLQ pain, CT AP neg, labs neg except mildly elev LFTs which are not new and mild anemia also not new - Sepsis Event Vital Signs: Vital Signs - 24 hr 12/18/17 12/18/17 08:45 10:26 Temperature 36.2 C L Heart Rate 79 74 Respiratory 18 14 Rate Blood Pressure 156/104 H 148/89 H O2 Saturation 100 97 Oxygen O2 Source Room air Departure - Departure Disposition: 01 Home, Self Care Clinical Impression: Chest pain Qualifiers: Chest pain type: unspecified Qualified Code(s): R07.9 - Chest pain, unspecified Abdominal pain Qualifiers: Abdominal location: left lower quadrant Qualified Code(s): R10.32 - Left lower quadrant pain Condition: Good Instructions: ED Chest Pain Atypical Unkn Cause, ED Abdominal Pain Unkn Cause Male Follow-Up: WALLY GRECO [Primary Care Provider] - Prescriptions: raNITIdine [Zantac] 150 mg PO BID #60 tablet Comments: Your heart checked out fine - it does not look like the chest pain was due to a heart attack, blood clot in your lung, aneurysm or tear of your aorta, infection or collapsed lung. It is possible the pain is due to acid reflux from your stomach so i suggest you try zantac and see if that relieves the pains The abdominal CT scan did not show any new problems to explain your left lower abdominal pain - you have some chronic issues on CT such as small hernias containing fat but not bowel, diverticulosis without infection, and a fatty liver but none of these are new findings Your labs are OK except for mildly elevated liver function tests and mild anemia I suggest you avoid all alcohol and medications containing tylenol and follow up with your PMD about the mild anemia and the liver tests And follow up with your [facility] about the chest pains Return if worse
[2017-12-18 09:38] LABS: ALBUMIN 3.5 g/dL (3.2-5.5); ALBUMIN/GLOBULIN RATIO 1.2 (1.0-2.2); CALCIUM 8.6 mg/dL (8.5-10.3); CREATININE 0.7 mg/dL (0.6-1.2); TOTAL PROTEIN 6.4 g/dL (6.7-8.2)
--- NOTE | 2017-12-18 09:48 | XRAY Report ---
Procedure Date: 12/18/2017 Accession Number: [id number] / [id number] Procedure: XR - Chest 2 View X-Ray CPT Code: 37712 FULL RESULT: EXAM: CHEST RADIOGRAPHY EXAM DATE: 12/18/2017 09:38 AM. CLINICAL HISTORY: Cp soa. COMPARISON: 10/07/2017. TECHNIQUE: 2 views. FINDINGS: Lungs/Pleura: No focal opacities evident. No pleural effusion. No pneumothorax. Normal volumes. Mediastinum: Heart and mediastinal contours are unremarkable. Other: None. IMPRESSION: No acute cardiopulmonary abnormality. RADIA
--- NOTE | 2017-12-18 09:58 | CT Report ---
Procedure Date: 12/18/2017 Accession Number: [id number] / [id number] Procedure: CT - Abdomen/Pelvis W/O CPT Code: FULL RESULT: EXAM: CT ABDOMEN AND PELVIS EXAM DATE: 12/18/2017 09:31 AM. CLINICAL HISTORY: LLQ abd pain. COMPARISONS: CT abdomen/pelvis 10/07/2017. TECHNIQUE: Routine helical CT imaging was performed through the abdomen and pelvis. IV contrast: None. Enteric contrast: No. Reconstructions: Coronal and sagittal. In accordance with CT protocol optimization, one or more of the following dose reduction techniques were utilized for this exam: automated exposure control, adjustment of mA and/or KV based on patient size, or use of iterative reconstructive technique. FINDINGS: Lung Bases: Indeterminate 4 mm lingular nodule, appears to have been excluded from the prior exam. Calcified left hilar lymph nodes. Coronary artery calcification or stenting. Liver: Marked fatty liver. No focal liver lesion. Gallbladder/Bile Ducts: Unremarkable. Spleen: Nonspecific mild splenomegaly, similar to prior. Pancreas: Normal. Adrenal Glands: Normal. Kidneys: Normal. No masses or hydronephrosis. Peritoneal Cavity/Bowel: No free air or free fluid. Scattered diverticulosis without diverticulitis. No evidence of obstruction. The appendix is well visualized and normal. Pelvic Organs: Normal. The bladder and visualized pelvic organs are within normal limits. Vasculature: No aneurysms or other significant abnormality. Bones: No significant abnormality. Other: Small fat-containing inguinal hernias bilaterally. Small fat-containing umbilical hernia. IMPRESSION: 1. No convincing acute abdominopelvic findings. 2. Fatty liver. 3. Splenomegaly. 4. Diverticulosis. 5. Small fat-containing bilateral inguinal hernias. 6. Other findings as noted above. RADIA
[2017-12-18] MEDS ORDERED: IOPAMIDOL-300 100 ML VIAL ONE (10:25)
[2017-12-18] MEDS ORDERED: IOPAMIDOL-300 100 ML VIAL IVP ONE (10:51)
[2017-12-18] MEDS ORDERED: oxyCOD/ACETAMIN 5 MG/325 MG TABLET PO STA ×2 (10:58→12:49)
--- NOTE | 2017-12-18 11:45 | CT Report ---
Procedure Date: 12/18/2017 Accession Number: [id number] / [id number] Procedure: CT - Chest Angio (PE) CPT Code: FULL RESULT: EXAM: CT ANGIOGRAM CHEST EXAM DATE: 12/18/2017 10:56 AM. CLINICAL HISTORY: Cp soa swollen legs clear CXR neg BNP. COMPARISON: Chest radiograph 12/18/2017. TECHNIQUE: Routine helical imaging was performed through the chest in the pulmonary arterial phase. IV Contrast: 80 mL Isovue 300M. Reconstructions: Coronal 3-D MIP reconstructions.Sagittal and coronal. In accordance with CT protocol optimization, one or more of the following dose reduction techniques were utilized for this exam: automated exposure control, adjustment of mA and/or KV based on patient size, or use of iterative reconstructive technique. FINDINGS: Pulmonary Arteries: Diagnostic quality: Adequate through the segmental arteries. No evidence for acute or chronic pulmonary emboli. RV/LV is within normal limits. There is no interventricular septal bowing. There is no reflux of contrast material in the IVC. Lungs/Pleura: Mild apical predominant centrilobular emphysema. 7 mm calcified presumed granuloma at the anterior left upper lobe (5/53). No noncalcified nodules. No focal pulmonary consolidation. No pleural effusion or evidence of pneumothorax. Minimal dependent atelectasis. Mediastinum: Calcified bilateral hilar, mediastinal lymph nodes. No aortic aneurysm or evidence of dissection. Heart size is normal. Thoracic Aorta: Unremarkable. Upper Abdomen: Marked fatty liver infiltration. Mild splenomegaly. Other: None. IMPRESSION: 1. Study is adequate for evaluation of the pulmonary arteries. No acute pulmonary embolism. 2. Evidence of past granulomatous disease. 3. Fatty liver. Splenomegaly. 4. Other findings as noted above. RADIA
[2017-12-18] MEDS ORDERED: oxyCODONE 5 MG TABLET PO STA (12:53)
[2017-12-18 13:11] VITALS: BP 128/87
== END 2017-12-18 13:22 | disposition home or self-care (01) ==
LOC: ED 08:45
DX: R07.9 Chest pain, unspecified (principal); D61.818 Other pancytopenia; R94.31 Abnormal electrocardiogram [ECG] [EKG]; I25.2 Old myocardial infarction; I25.10 Atherosclerotic heart disease of native coronary artery without angina pectoris; Z95.5 Presence of coronary angioplasty implant and graft; F17.200 Nicotine dependence, unspecified, uncomplicated; Z79.01 Long term (current) use of anticoagulants; Z79.82 Long term (current) use of aspirin
CPT/HCPCS: 36415; 71046; 71275; 74176; 80053; 83690; 83880; 84484; 85025; 93005; 96374; 99283; 99284; A9270; Q9967

== ENCOUNTER 2018-01-04 15:37 | Outpatient (CLI) | payer MEDICARE, MEDICAID | END 2018-01-04 15:38 | disposition critical access hospital (66) | LOC: EMS 15:37 | PROVIDERS: ATTEND Surgery | DX: R07.9 Chest pain, unspecified (principal) | CPT/HCPCS: A0425; A0427; A0999 ==

== ENCOUNTER 2018-01-04 15:59 | Emergency (ER) | payer MEDICARE, MEDICAID ==
[2018-01-04 16:19] LABS: BASOPHILS # (AUTO) 0.1 10^3/uL (0.0-0.1); BASOPHILS % (AUTO) 1.5 %; EOSINOPHILS # (AUTO) 0.5 10^3/uL (0.0-0.7); HGB - HEMOGLOBIN 15.6 g/dL (14.0-18.0); LYMPHOCYTES # (AUTO) 2.2 10^3/uL (1.5-3.5); MONOCYTES # (AUTO) 0.6 10^3/uL (0.0-1.0); MONOCYTES % (AUTO) 8.4 %
[2018-01-04] MEDS ORDERED: LIDOCAINE VISCOUS 2% 15 ML UDC MM STA (16:21)
--- NOTE | 2018-01-04 16:23 | ED Physician Documentation ---
PD HPI CHEST PAIN - Stated complaint Stated Complaint: CHEST DISCOMFORT - Chief complaint Chief Complaint: Cardiac - History obtained from History obtained from: Patient - History of Present Illness Timing - onset: Chronic Timing - details: Intermittant Quality: Pressure, Indigestion Location: Substernal, Epigastric Radiation: Back Associated symptoms: No: Shortness of air Similar symptoms before: Work up / diagnostics, Treatment Recently seen: Not recently seen - Additional information Additional information: Patient is a 62 year old male presenting to the emergency department for chest pain. patient has had multiple ED visits for chest pain and back pain. patient states that the symptoms started this afternoon after eating pizza and watching the world cup. Review of Systems Ten Systems: 10 systems reviewed and negative Cardiac: reports: Chest pain / pressure GI: reports: Abdominal Pain Musculoskeletal: reports: Back pain PD PAST MEDICAL HISTORY - Past Medical History Cardiovascular: Coronary artery disease, [place] Respiratory: None, Sleep apnea Endocrine/Autoimmune: None GI: GERD : None HEENT: None Psych: None Musculoskeletal: Chronic back pain Derm: None - Past Surgical History Past Surgical History: Yes Ortho: Spine surgery Cardiovascular: Coronary stent - Present Medications Home Medications: Ambulatory Orders Medication Instructions Recorded Confirmed Aspirin [Bakari Chewable Aspirin] 81 mg ORAL DAILY 01/17/14 03/26/17 Clopidogrel Bisulfate [Plavix] 75 mg ORAL DAILY 01/17/14 03/26/17 Lisinopril [Zestril] 5 mg ORAL DAILY 01/17/14 03/26/17 Metoprolol Succinate [Toprol Xl] 25 mg ORAL BID 01/17/14 03/26/17 Nitroglycerin 0.4 mg SL Q5MIN PRN 01/17/14 03/26/17 Famotidine [Pepcid] 20 mg PO BID #60 tablet 09/20/15 03/26/17 Atorvastatin [Lipitor] 40 mg PO QPM 11/24/16 03/26/17 Oxycodone HCl/Acetaminophen 1 each PO TID PRN #25 tablet 03/02/17 03/26/17 [Percocet 7.5-325 mg Tablet] diazePAM [Diazepam] 5 mg PO TID PRN #20 tablet 03/02/17 03/26/17 Famotidine 20 mg PO BID #30 tablet 04/11/17 Lisinopril 5 mg PO DAILY #30 tablet 04/11/17 Metoprolol Succinate [Toprol Xl] 25 mg PO DAILY #30 tablet 04/11/17 diphenhydrAMINE [Benadryl] 25 - 50 mg PO Q6HR PRN #20 capsule 07/12/17 predniSONE [Deltasone] 40 mg PO DAILY 3 Days tablet 07/12/17 Sucralfate [Carafate] 1 gm PO ACHS #60 tablet 08/08/17 Albuterol Sulf [Ventolin Hfa 2 puffs INH Q4HR PRN #1 inhaler 10/07/17 Inhaler] raNITIdine [Zantac] 150 mg PO BID #60 tablet 12/18/17 - Allergies Allergies/Adverse Reactions: Allergies Allergy/AdvReac Type Severity Reaction Status Date / Time No Known Drug Allergies Allergy Verified 01/04/18 16:09 - Social History Does the pt smoke?: Yes Smoking Status: Current every day smoker Does the pt drink ETOH?: Yes Does the pt have substance abuse?: No - Immunizations Immunizations are current?: No Immunizations: TDAP >10years/unknown - POLST Patient has POLST: No PD ED PE NORMAL - Vitals Vital signs reviewed: Yes - General General: Alert and oriented X 3 - HEENT HEENT: Atraumatic - Neck Neck: Supple, no meningeal sign - Cardiac Cardiac: RRR, No murmur - Respiratory Respiratory: No respiratory distress - Derm Derm: Normal color, Warm and dry - Extremities Extremities: No deformity - Neuro Neuro: Alert and oriented X 3, No motor deficit, Normal speech Eye Opening: Spontaneous PD ED PE EXPANDED - Abdomen Abdomen: Tender to palpation, Generalized/diffuse. No: Rebound, Guarding Results - Vitals Vitals: Vital Signs - 24 hr 01/04/18 16:04 Temperature 36.4 C L Heart Rate 89 Respiratory 16 Rate Blood Pressure 110/87 H O2 Saturation 96 Oxygen O2 Source Room air - EKG (time done) 1609 Rate: Rate (enter#) (92) Rhythm: NSR Ischemia: Q waves Compare to prior EKG: Unchanged from prior EKG 1835 Rate: Rate (enter#) (84) Rhythm: NSR Compare to prior EKG: Unchanged from prior EKG - Labs Labs: Laboratory Tests 01/04/18 01/04/18 01/04/18 16:15 16:15 16:15 WBC 6.9 RBC 5.10 Hgb 15.6 Hct 44.2 MCV 86.7 MCH 30.6 MCHC 35.3 RDW 14.5 Plt Count 195 MPV 7.8 Neut # (Auto) 3.5 Lymph # (Auto) 2.2 [place] # (Auto) 0.6 Eos # (Auto) 0.5 Baso # (Auto) 0.1 Absolute Nucleated RBC 0.01 Nucleated RBC % 0.1 Sodium 140 Potassium 4.0 Chloride 106 Carbon Dioxide 21 Anion Gap 13.0 BUN 8 Creatinine 1.2 Estimated GFR (MDRD) 61 L Glucose 105 H Calcium 8.6 Total Bilirubin 0.7 AST 63 H ALT 70 H Alkaline Phosphatase 92 Troponin I < 0.04 Total Protein 7.0 Albumin 3.8 Globulin 3.2 Albumin/Globulin Ratio 1.2 Lipase 44 01/04/18 18:01 WBC RBC Hgb Hct MCV MCH MCHC RDW Plt Count MPV Neut # (Auto) Lymph # (Auto) [place] # (Auto) Eos # (Auto) Baso # (Auto) Absolute Nucleated RBC Nucleated RBC % Sodium Potassium Chloride Carbon Dioxide Anion Gap BUN Creatinine Estimated GFR (MDRD) Glucose Calcium Total Bilirubin AST ALT Alkaline Phosphatase Troponin I < 0.04 Total Protein Albumin Globulin Albumin/Globulin Ratio Lipase - Rads (name of study) chest x-ray Radiology: Final report received (normal) PD MEDICAL DECISION MAKING - ED course Complexity details: reviewed old records, reviewed results ED course: Patient was seen and examined at bedside. Patient stated that his pain was similar to previous pain and that he wanted his percocets. ekg was performed and was unchanged from patient's previous. Patient's labs were drawn. previous results were reviewed and patient had a negative stress test within the year. Chest x-ray was performed and was within normal limits. patient's labs including repeat troponin and ekg were within normal limits. Patient refused the tylenol. Patient required no further work up and was stable for discharge with outpatient follow up. - Sepsis Event Vital Signs: Vital Signs - 24 hr 01/04/18 16:04 Temperature 36.4 C L Heart Rate 89 Respiratory 16 Rate Blood Pressure 110/87 H O2 Saturation 96 Oxygen O2 Source Room air Departure - Departure Disposition: 01 Home, Self Care Clinical Impression: Atypical chest pain Condition: Good Instructions: ED Chest Pain Atypical Unkn Cause Follow-Up: WALLY GRECO [Primary Care Provider] - Tomorrow Comments: Your diagnostics today were within normal limits. you should call your doctor tomorrow to schedule a follow up appointment. you may return to the emergency department for worsening symptoms.
[2018-01-04 16:27] LABS: EOSINOPHILS % (AUTO) 7.3 %; LYMPHOCYTES % (AUTO) 31.7 %; MEAN CORPUSCULAR HEMOGLOBIN 30.6 pg (27.0-31.0); MEAN CORPUSCULAR HGB CONC 35.3 g/dL (32.0-36.0); MEAN CORPUSCULAR VOLUME 86.7 fL (80.0-94.0); MEAN PLATELET VOLUME 7.8 fL (7.4-11.4); NEUTROPHILS # (AUTO) 3.5 10^3/uL (1.5-6.6); NEUTROPHILS % (AUTO) 51.1 %; PLT - PLATELET COUNT 195 10^3/uL (130-450); RED CELL DISTRIBUTION WIDTH 14.5 % (12.0-15.0); WHITE BLOOD COUNT 6.9 x10^3/uL (4.8-10.8)
[2018-01-04 16:31] LABS: ALBUMIN 3.8 g/dL (3.2-5.5); ALBUMIN/GLOBULIN RATIO 1.2 (1.0-2.2); BILIRUBIN,TOTAL 0.7 mg/dL (0.2-1.0); CALCIUM 8.6 mg/dL (8.5-10.3); CREATININE 1.2 mg/dL (0.6-1.2)
--- NOTE | 2018-01-04 16:57 | XRAY Report ---
Procedure Date: 01/04/2018 Accession Number: [id number] / [id number] Procedure: XR - Chest 2 View X-Ray CPT Code: 64706 FULL RESULT: EXAM: CHEST RADIOGRAPHY EXAM DATE: 01/04/2018 04:36 PM. CLINICAL HISTORY: Chest pain. COMPARISON: 12/18/2017. TECHNIQUE: 2 views. FINDINGS: Lungs/Pleura: No definite localized infiltrate, consolidation, effusion, or pneumothorax. Mediastinum: Heart and mediastinal contours are unremarkable. Upper lobe vessels not distended. Calcified mediastinal lymph nodes compatible with previous inflammatory disease. Other: Degenerative changes. Old left clavicle fracture. IMPRESSION: No acute disease. RADIA
[2018-01-04] MEDS ORDERED: ACETAMINOPHEN 500 MG TABLET PO STA (17:56)
[2018-01-04 19:08] VITALS: BP 138/94
== END 2018-01-04 19:10 | disposition home or self-care (01) ==
LOC: EDUNIT# → SUPCPDRO 15:59 → ED 15:59
DX: R07.9 Chest pain, unspecified (principal); R94.31 Abnormal electrocardiogram [ECG] [EKG]; I25.10 Atherosclerotic heart disease of native coronary artery without angina pectoris; I25.2 Old myocardial infarction; Z95.5 Presence of coronary angioplasty implant and graft; F17.200 Nicotine dependence, unspecified, uncomplicated; Z79.82 Long term (current) use of aspirin
CPT/HCPCS: 36415; 71046; 80053; 83690; 84484; 85025; 93005; 99283

== ENCOUNTER 2018-07-03 01:18 | Outpatient (CLI) | payer MEDICARE, MEDICAID | END 2018-07-03 01:19 | disposition critical access hospital (66) | LOC: EMS 01:18 | PROVIDERS: ATTEND Surgery | DX: R07.9 Chest pain, unspecified (principal) | CPT/HCPCS: A0425; A0427 ==

== ENCOUNTER 2018-07-03 01:37 | Emergency (ER) | payer MEDICARE, MEDICAID ==
[2018-07-03 02:07] LABS: BASOPHILS # (AUTO) 0.1 10^3/uL (0.0-0.1); BASOPHILS % (AUTO) 2.2 %; EOSINOPHILS # (AUTO) 0.3 10^3/uL (0.0-0.7); EOSINOPHILS % (AUTO) 4.6 %; HGB - HEMOGLOBIN 15.4 g/dL (14.0-18.0); LYMPHOCYTES # (AUTO) 2.5 10^3/uL (1.5-3.5); LYMPHOCYTES % (AUTO) 38.2 %; MEAN CORPUSCULAR HEMOGLOBIN 31.2 pg (27.0-31.0); MEAN CORPUSCULAR HGB CONC 34.7 g/dL (32.0-36.0); MEAN CORPUSCULAR VOLUME 89.7 fL (80.0-94.0); MEAN PLATELET VOLUME 8.5 fL (7.4-11.4); MONOCYTES # (AUTO) 0.5 10^3/uL (0.0-1.0); MONOCYTES % (AUTO) 7.3 %; NEUTROPHILS # (AUTO) 3.1 10^3/uL (1.5-6.6); NEUTROPHILS % (AUTO) 47.7 %; PLT - PLATELET COUNT 153 10^3/uL (130-450); RED BLOOD COUNT 4.94 10^6/uL (4.70-6.10); RED CELL DISTRIBUTION WIDTH 13.8 % (12.0-15.0); WHITE BLOOD COUNT 6.5 x10^3/uL (4.8-10.8)
--- NOTE | 2018-07-03 02:12 | XRAY Report ---
Reason: Chest Pain Procedure Date: 07/03/2018 Accession Number: [id number] / [id number] Procedure: XR - Chest 1 View X-Ray CPT Code: 70031 FULL RESULT: EXAM: CHEST RADIOGRAPHY EXAM DATE: 07/03/2018 01:47 AM. CLINICAL HISTORY: Chest pain. COMPARISON: CHEST 2 VIEW 01/04/2018 4:25 PM, CHEST ANGIO 12/18/2017 10:43 AM. TECHNIQUE: 1 view. FINDINGS: Lungs/Pleura: No focal opacities evident. No pleural effusion. No pneumothorax. Mediastinum: Within exam limitations, the cardiomediastinal contour is normal. Other: Old left clavicle fracture. IMPRESSION: No acute process seen in the chest. Underlying known emphysema. RADIA
[2018-07-03] MEDS ORDERED: KETOROLAC 30 MG/ML VIAL IVP STA (02:16)
[2018-07-03] MEDS ORDERED: ACETAMINOPHEN 1,000 MG/100 ML 100 ML IV STA (02:16)
[2018-07-03 02:17] LABS: ALBUMIN 3.6 g/dL (3.2-5.5); ALBUMIN/GLOBULIN RATIO 1.1 (1.0-2.2); BILIRUBIN,TOTAL 1.2 mg/dL (0.2-1.0); CALCIUM 8.4 mg/dL (8.5-10.3); CREATININE 0.6 mg/dL (0.6-1.2)
--- NOTE | 2018-07-03 02:21 | ED Physician Documentation ---
History of Present Illness - Stated complaint Stated Complaint: ABD/BACK PAIN - Chief complaint Chief Complaint: Cardiac - History obtained from History obtained from: Patient, EMS - History of Present Illness Timing: How many hours ago (4) Pain level max: 9 Pain level now: 9 - Additonal information Additional information: Patient is a 62-year-old male who presents to the emergency department with diffuse chest pain, abdominal pain and leg pain. Also has back pain and neck pain. He states this has been ongoing since his doctor quit prescribing him pain medications in January. States it became worse last night and about 10 PM. He states that he needs a referral to a pain clinic and that he is here for pain medication. States this does not feel like prior heart attacks. It is worse with movement and palpation. Nothing makes it better. He has not been sick recently. No numbness or tingling. No loss of bowel or bladder control. No fevers. He states that he needs narcotics for his pain. He states he cannot see a pain clinic. Review of Systems Ten Systems: 10 systems reviewed and negative Constitutional: denies: Fever, Chills Ears: denies: Ear pain Nose: denies: Rhinorrhea / runny nose, Congestion Throat: denies: Sore throat Cardiac: denies: Palpitations GI: denies: Hematemesis, Bloody / black stool Skin: denies: Rash Musculoskeletal: reports: Back pain (chronic and unchanged) Neurologic: denies: Focal weakness, Numbness, Headache, Head injury PD PAST MEDICAL HISTORY - Past Medical History Cardiovascular: Coronary artery disease, [place] Respiratory: None, Sleep apnea Endocrine/Autoimmune: None GI: GERD : None HEENT: None Psych: None Musculoskeletal: Chronic back pain Derm: None - Past Surgical History Past Surgical History: Yes Ortho: Spine surgery Cardiovascular: Coronary stent - Present Medications Home Medications: Ambulatory Orders Medication Instructions Recorded Confirmed Aspirin [Bakari Chewable Aspirin] 81 mg ORAL DAILY 01/17/14 03/26/17 Clopidogrel Bisulfate [Plavix] 75 mg ORAL DAILY 01/17/14 03/26/17 Lisinopril [Zestril] 5 mg ORAL DAILY 01/17/14 03/26/17 Metoprolol Succinate [Toprol Xl] 25 mg ORAL BID 01/17/14 03/26/17 Nitroglycerin 0.4 mg SL Q5MIN PRN 01/17/14 03/26/17 Famotidine [Pepcid] 20 mg PO BID #60 tablet 09/20/15 03/26/17 Atorvastatin [Lipitor] 40 mg PO QPM 11/24/16 03/26/17 Oxycodone HCl/Acetaminophen 1 each PO TID PRN #25 tablet 03/02/17 03/26/17 [Percocet 7.5-325 mg Tablet] diazePAM [Diazepam] 5 mg PO TID PRN #20 tablet 03/02/17 03/26/17 Famotidine 20 mg PO BID #30 tablet 04/11/17 Lisinopril 5 mg PO DAILY #30 tablet 04/11/17 Metoprolol Succinate [Toprol Xl] 25 mg PO DAILY #30 tablet 04/11/17 diphenhydrAMINE [Benadryl] 25 - 50 mg PO Q6HR PRN #20 capsule 07/12/17 predniSONE [Deltasone] 40 mg PO DAILY 3 Days tablet 07/12/17 Sucralfate [Carafate] 1 gm PO ACHS #60 tablet 08/08/17 Albuterol Sulf [Ventolin Hfa 2 puffs INH Q4HR PRN #1 inhaler 10/07/17 Inhaler] raNITIdine [Zantac] 150 mg PO BID #60 tablet 12/18/17 - Allergies Allergies/Adverse Reactions: Allergies Allergy/AdvReac Type Severity Reaction Status Date / Time No Known Drug Allergies Allergy Verified 07/03/18 01:43 - Social History Does the pt smoke?: Yes Smoking Status: Current every day smoker Does the pt drink ETOH?: Yes Does the pt have substance abuse?: No - Immunizations Immunizations are current?: No Immunizations: TDAP >10years/unknown - POLST Patient has POLST: No PD ED PE NORMAL - Vitals Vital signs reviewed: Yes - General General: Alert and oriented X 3, No acute distress - HEENT HEENT: Moist mucous membranes - Neck Neck: Supple, no meningeal sign - Cardiac Cardiac: RRR, Strong equal pulses - Respiratory Respiratory: No respiratory distress, Clear bilaterally - Abdomen Abdomen: Soft, Non distended, Other (no peritoneal signs.) - Back Back: No spinal TTP - Derm Derm: Warm and dry, No rash - Extremities Extremities: No edema - Neuro Neuro: Alert and oriented X 3, No motor deficit, No sensory deficit - Psych Psych: Normal mood, Normal affect - Free text exam Free text exam: Patient states he is tender anywhere that I touch him on exam from his scalp to toes. The palpation reproduces the pain he is feeling. Results - Vitals Vitals: Vital Signs - 24 hr 07/03/18 07/03/18 07/03/18 01:37 02:27 03:03 Temperature 36.3 C L Heart Rate 80 78 80 Respiratory 15 15 16 Rate Blood Pressure 108/87 H 95/70 101/72 O2 Saturation 98 95 99 07/03/18 04:09 Temperature Heart Rate 70 Respiratory 16 Rate Blood Pressure 114/83 H O2 Saturation 97 Oxygen O2 Source Room air - EKG (time done) 0140 Rate: Rate (enter#) (82) Rhythm: NSR [place]: Normal Intervals: Normal DC QRS: Normal Ischemia: Normal ST segments, Q waves (III, aVF) Compare to prior EKG: Unchanged from prior EKG (01/04/18) 0401 Rate: Rate (enter#) (65) Rhythm: NSR [place]: Normal Intervals: Normal DC QRS: Normal Ischemia: Normal ST segments, Q waves (III, aVF) Compare to prior EKG: Unchanged from prior EKG - Labs Labs: Laboratory Tests 07/03/18 07/03/18 07/03/18 02:00 02:00 02:00 WBC 6.5 RBC 4.94 Hgb 15.4 Hct 44.3 MCV 89.7 MCH 31.2 H MCHC 34.7 RDW 13.8 Plt Count 153 MPV 8.5 Neut # (Auto) 3.1 Lymph # (Auto) 2.5 [place] # (Auto) 0.5 Eos # (Auto) 0.3 Baso # (Auto) 0.1 Absolute Nucleated RBC 0.01 Nucleated RBC % 0.2 Sodium 140 Potassium 3.8 Chloride 106 Carbon Dioxide 21 Anion Gap 13.0 BUN 10 Creatinine 0.6 Estimated GFR (MDRD) 137 Glucose 114 H Calcium 8.4 L Total Bilirubin 1.2 H AST 51 H ALT 66 H Alkaline Phosphatase 76 Troponin I < 0.04 Total Protein 7.0 Albumin 3.6 Globulin 3.4 Albumin/Globulin Ratio 1.1 Lipase 49 07/03/18 03:34 WBC RBC Hgb Hct MCV MCH MCHC RDW Plt Count MPV Neut # (Auto) Lymph # (Auto) [place]cl[place] # (Auto) Eos # (Auto) Baso # (Auto) Absolute Nucleated RBC Nucleated RBC % Sodium Potassium Chloride Carbon Dioxide Anion Gap BUN Creatinine Estimated GFR (MDRD) Glucose Calcium Total Bilirubin AST ALT Alkaline Phosphatase Troponin I < 0.04 Total Protein Albumin Globulin Albumin/Globulin Ratio Lipase - Rads (name of study) cxr Radiology: Prelim report reviewed, EMP read contemporaneously, See rad report (no acute disease) PD MEDICAL DECISION MAKING - ED course Complexity details: reviewed old records, reviewed results, re-evaluated patient, considered differential (No ST elevation IA, no aortic dissection, no PE, no tension pneumothorax, no aortic aneurysm), d/w patient ED course: 62-year-old male with generalized body pain today as well and is complaining of left-sided chest pain. Constant pain for 4 hours prior to arrival. No change with nitroglycerin in the ambulance. No change with morphine in the ambulance. No change with Toradol or Ofirmev. Patient is repeatedly asking for narcotic pain medication, oxycodone and morphine in the emergency department. He is requesting a referral to a paint maker for his chronic pain. States that his doctor will no longer prescribe him pain medication. Informed him that I do not feel comfortable using narcotic pain medication for his symptoms at this time. He then asked how much longer he needs to stay and I recommended a second troponin and repeat EKG. Initially he declined this and stated he would only stay if he received more morphine and oxycodone, but now states he will stay for the further testing. No acute findings on EKG or laboratory testing. No evidence of cardiac ischemia at this time. Negative nuclear medicine stress test in February 2017. We will have him follow-up with his doctor for further evaluation and care including a repeat cardiac stress test. Patient counseled regarding signs and symptoms for which I believe and urgent re-evaluation would be necessary. Patient with good understanding of the plan and is requesting to going home at this time. This document was made in part using voice recognition software. While efforts are made to proofread this document, sound alike and grammatical errors may occur. Departure - Departure Disposition: 01 Home, Self Care Clinical Impression: Atypical chest pain Condition: Good Instructions: ED Chest Pain Atypical Unkn Cause Follow-Up: WALLY GRECO [Physician No Access] - Within 3 Days Comments: As we discussed today, you will need to follow-up with your doctor regarding your pain medication. You also should follow-up with your doctor for a cardiac stress test and follow-up with your computer technologist within a week for further evaluation. Return if you worsen.
[2018-07-03] MEDS ORDERED: LIDOCAINE VISCOUS 2% 15 ML UDC MM STA (03:28)
[2018-07-03 04:10] VITALS: BP 114/83
== END 2018-07-03 04:17 | disposition home or self-care (01) ==
LOC: EDUNIT# → ED 01:37
DX: R07.89 Other chest pain (principal); R94.31 Abnormal electrocardiogram [ECG] [EKG]; G89.29 Other chronic pain; I25.10 Atherosclerotic heart disease of native coronary artery without angina pectoris; I25.2 Old myocardial infarction; Z95.5 Presence of coronary angioplasty implant and graft; Z79.82 Long term (current) use of aspirin; Z79.01 Long term (current) use of anticoagulants
CPT/HCPCS: 36415; 71045; 80053; 83690; 84484; 85025; 93005; 96365; 96375; 99284; J0131

== ENCOUNTER 2018-10-22 01:47 | Outpatient (CLI) | payer MEDICARE, MEDICAID | END 2018-10-22 01:48 | disposition critical access hospital (66) | LOC: EMS 01:47 | PROVIDERS: ATTEND Surgery | DX: R07.9 Chest pain, unspecified (principal); R20.0 Anesthesia of skin; R51 Headache; R14.2 Eructation | CPT/HCPCS: A0425; A0427 ==

== ENCOUNTER 2018-10-22 02:05 | Emergency (ER) | payer MEDICARE, MEDICAID ==
[2018-10-22 02:11] VITALS: BP 148/94
[2018-10-22] MEDS ORDERED: fentaNYL 100 MCG/2 ML VIAL IVP STA (02:20)
--- NOTE | 2018-10-22 02:38 | ED Physician Documentation ---
History of Present Illness - Stated complaint Stated Complaint: CHEST PAIN - Chief complaint Chief Complaint: Cardiac - History obtained from History obtained from: Patient - Additonal information Additional information: Patient is a 62-year-old male with history of hypertension, coronary artery disease, and previous coronary stents presenting with approximately 5 hours of left-sided chest discomfort.Patient reports his last visit to the screener and blender operator was in 2018, although he cannot further specify. At that time, there were no further concerns he believes his next follow-up is in 2019. Patient is unsure if he had an ultrasound or stress test performed.Patient reports that he has been compliant with all medications.Patient states that he had left-sided chest discomfort while at rest earlier this evening, but describes this same discomfort present when he last saw his screener and blender operator and intermittently in between.Patient also believes that it affects his breathing, but cannot further specify. Patient also complains of near syncope and nausea without vomiting. Patient also has history of GERD, and states that he does have some upper abdominal pain, but is unsure if he is experiencing GERD-like symptoms during this episode.Patient denies new leg pain or swelling. No other improving or worsening factors noted.Patient received full dose aspirin and 1 dose of nitroglycerin prior to arrival in ambulance. Patient is anticoagulated with ASA and Plavix. Of note, patient's primary care physician no longer prescribes patient pain medication and has referred him to a pain clinic for his chronic pain issues. Patient categorizes his chest pain as chronic pain and associates it with his chronic back pain. He states that he is unable to obtain pain clinic follow-up because of insurance issues. Patient has been out of pain medications for several months. Review of Systems Cardiac: reports: Chest pain / pressure. denies: Pedal edema GI: reports: Abdominal Pain, Nausea PD PAST MEDICAL HISTORY - Past Medical History Past Medical History: Yes Cardiovascular: Hypertension, High cholesterol, Coronary artery disease, [place] Respiratory: Sleep apnea Endocrine/Autoimmune: None GI: GERD : None HEENT: None Psych: None Musculoskeletal: Chronic back pain Derm: None - Past Surgical History Past Surgical History: Yes Ortho: Spine surgery Cardiovascular: Coronary stent - Present Medications Home Medications: Ambulatory Orders Medication Instructions Recorded Confirmed Aspirin [Bakari Chewable Aspirin] 81 mg ORAL DAILY 01/17/14 10/22/18 Clopidogrel Bisulfate [Plavix] 75 mg ORAL DAILY 01/17/14 10/22/18 Lisinopril [Zestril] 5 mg ORAL DAILY 01/17/14 10/22/18 Metoprolol Succinate [Toprol Xl] 25 mg ORAL BID 01/17/14 10/22/18 Nitroglycerin 0.4 mg SL Q5MIN PRN 01/17/14 10/22/18 Famotidine [Pepcid] 20 mg PO BID #60 tablet 09/20/15 10/22/18 Atorvastatin [Lipitor] 40 mg PO QPM 11/24/16 10/22/18 Oxycodone HCl/Acetaminophen 1 each PO TID PRN #25 tablet 03/02/17 10/22/18 [Percocet 7.5-325 mg Tablet] diazePAM [Diazepam] 5 mg PO TID PRN #20 tablet 03/02/17 10/22/18 Famotidine 20 mg PO BID #30 tablet 04/11/17 10/22/18 Lisinopril 5 mg PO DAILY #30 tablet 04/11/17 10/22/18 Metoprolol Succinate [Toprol Xl] 25 mg PO DAILY #30 tablet 04/11/17 10/22/18 diphenhydrAMINE [Benadryl] 25 - 50 mg PO Q6HR PRN #20 capsule 07/12/17 10/22/18 predniSONE [Deltasone] 40 mg PO DAILY 3 Days tablet 07/12/17 10/22/18 Sucralfate [Carafate] 1 gm PO ACHS #60 tablet 08/08/17 10/22/18 Albuterol Sulf [Ventolin Hfa 2 puffs INH Q4HR PRN #1 inhaler 10/07/17 10/22/18 Inhaler] raNITIdine [Zantac] 150 mg PO BID #60 tablet 12/18/17 10/22/18 - Allergies Allergies/Adverse Reactions: Allergies Allergy/AdvReac Type Severity Reaction Status Date / Time No Known Drug Allergies Allergy Verified 07/03/18 01:43 - Social History Does the pt smoke?: Yes Smoking Status: Current every day smoker Does the pt drink ETOH?: Yes Does the pt have substance abuse?: No - Immunizations Immunizations are current?: No Immunizations: TDAP >10years/unknown - POLST Patient has POLST: No PD ED PE NORMAL - General General: Alert and oriented X 3, No acute distress, Well developed/nourished - HEENT HEENT: Atraumatic, Moist mucous membranes - Cardiac Cardiac: RRR, No murmur - Respiratory Respiratory: No respiratory distress, Clear bilaterally - Abdomen Abdomen: Normal bowel sounds, Soft, Non distended. No: Non tender (Mild upper abdominal discomfort without rebound or guarding) - Derm Derm: Normal color, Warm and dry, No rash - Extremities Extremities: No deformity, No tenderness to palpate, No edema - Neuro Neuro: Alert and oriented X 3, No motor deficit, No sensory deficit - Psych Psych: Normal mood, Normal affect Results - Vitals Vitals: Vital Signs - 24 hr 10/22/18 10/22/18 10/22/18 02:06 02:11 02:30 Temperature 36.6 C Heart Rate 71 65 60 Respiratory 16 16 15 Rate Blood Pressure 148/94 H 148/94 H 148/94 H O2 Saturation 98 98 98 Oxygen O2 Source Room air - EKG (time done) 0213 Rate: Rate (enter#) (64) Rhythm: NSR Ischemia: Non specific changes - Labs Labs: Laboratory Tests 10/22/18 10/22/18 10/22/18 02:50 02:50 02:50 WBC 6.5 RBC 5.09 Hgb 15.3 Hct 44.6 MCV 87.6 MCH 30.0 MCHC 34.3 RDW 14.4 Plt Count 142 MPV 8.3 Neut # (Auto) 3.8 Lymph # (Auto) 1.7 [place] # (Auto) 0.5 Eos # (Auto) 0.4 Baso # (Auto) 0.0 Absolute Nucleated RBC 0.01 Nucleated RBC % 0.2 PT INR APTT Sodium 136 Potassium 3.5 Chloride 102 Carbon Dioxide 25 Anion Gap 9.0 BUN 18 Creatinine 0.9 Estimated GFR (MDRD) 86 L Glucose 114 H Calcium 8.9 Total Bilirubin 1.1 H AST 36 ALT 37 Alkaline Phosphatase 56 Troponin I < 0.04 Total Protein 7.0 Albumin 4.0 Globulin 3.0 Albumin/Globulin Ratio 1.3 Lipase 66 H 10/22/18 02:50 WBC RBC Hgb Hct MCV MCH MCHC RDW Plt Count MPV Neut # (Auto) Lymph # (Auto) [place] # (Auto) Eos # (Auto) Baso # (Auto) Absolute Nucleated RBC Nucleated RBC % PT 12.4 INR 1.1 APTT 26.2 Sodium Potassium Chloride Carbon Dioxide Anion Gap BUN Creatinine Estimated GFR (MDRD) Glucose Calcium Total Bilirubin AST ALT Alkaline Phosphatase Troponin I Total Protein Albumin Globulin Albumin/Globulin Ratio Lipase PD MEDICAL DECISION MAKING - ED course Complexity details: reviewed old records, reviewed results, re-evaluated patient, considered differential, d/w patient ED course: Patient does have significant cardiac history and it is unclear as to his compliance with cardiology follow-up. Patient reports he is compliant with home medications, including anticoagulation, which would make certain pathology like PE much less likely. Patient's description of chest discomfort is concerning for IL, ACS, and unstable angina, although patient further states symptoms have been occurring for the past 1 year, even during his cardiology follow-up. Patient characterizes his chest discomfort as chronic and reports that he saw his PCP for this issue, along with his chronic back pain. Patient also states that his primary care physician will no longer prescribe him pain medications and referred him to a pain clinic, however[facility] because of insurance issues. Patient did immediately request pain medications upon arrival. He had received full dose aspirin and nitroglycerin prior to arrival and felt appropriate to give 1 dose of fentanyl during work-up given concern for cardiac pathology. However, do have additional concern for possible drug-seeking behavior. Have lower suspicion for other etiologies such as anxiety, esophageal spasm, pneumonia, but also considered. Do feel that patient's known GERD could be contributory. Obtained EKG, chest x-ray, and screening lab work, including troponin. All returned unremarkable for acute ischemia or other acute pathology. Given the duration of symptoms and additional chronicity of complaints, do not feel patient requires repeat troponin. Patient has appropriate medications at home including anticoagulation and nitroglycerin for underlying cardiac disease. At this time, do not feel he requires hospitalization or emergent cardiac consult. Emphasized need to follow-up with his primary care physician, as well as his screener and blender operator upon discharge. Also discussed strict return precautions and appropriate supportive cares. Departure - Departure Disposition: 01 Home, Self Care Clinical Impression: Chest pain, unspecified Qualifiers: Chest pain type: unspecified Qualified Code(s): R07.9 - Chest pain, unspecified Condition: Good Instructions: ED Chest Pain Atypical Unkn Cause Follow-Up: your,screener and blender operator [Other] - Within 3 Days Comments: Please continue taking all of your home medications as previously instructed. Please contact your primary care physician and your screener and blender operator (heart doctor) on Tuesday to schedule close follow-up within the next several days. Do feel that you may require a more significant heart work-up such as an echocardiogram or stress test. Please return to ED immediately if experience worsening symptoms or other concerns.
--- NOTE | 2018-10-22 02:56 | XRAY Report ---
Reason: chest pain Procedure Date: 10/22/2018 Accession Number: [id number] / [id number] Procedure: XR - Chest 2 View X-Ray CPT Code: 22560 FULL RESULT: EXAM: CHEST RADIOGRAPHY EXAM DATE: 10/22/2018 02:44 AM. CLINICAL HISTORY: Chest pain. COMPARISON: CHEST 1 VIEW 07/03/2018 1:47 AM. TECHNIQUE: 2 views. FINDINGS: Lungs/Pleura: No alveolar consolidation or pleural effusion seen. No pneumothorax. Mediastinum: Heart and mediastinal contours are unremarkable. Other: None. IMPRESSION: 1. No acute abnormality seen in the chest. RADIA
[2018-10-22 03:03] LABS: BASOPHILS % (AUTO) 0.6 %; EOSINOPHILS # (AUTO) 0.4 10^3/uL (0.0-0.7); EOSINOPHILS % (AUTO) 6.4 %; HGB - HEMOGLOBIN 15.3 g/dL (14.0-18.0); LYMPHOCYTES # (AUTO) 1.7 10^3/uL (1.5-3.5); LYMPHOCYTES % (AUTO) 26.8 %; MEAN CORPUSCULAR HGB CONC 34.3 g/dL (32.0-36.0); MEAN CORPUSCULAR VOLUME 87.6 fL (80.0-94.0); MEAN PLATELET VOLUME 8.3 fL (7.4-11.4); MONOCYTES # (AUTO) 0.5 10^3/uL (0.0-1.0); MONOCYTES % (AUTO) 8.4 %; NEUTROPHILS # (AUTO) 3.8 10^3/uL (1.5-6.6); NEUTROPHILS % (AUTO) 57.8 %; PLT - PLATELET COUNT 142 10^3/uL (130-450); RED BLOOD COUNT 5.09 10^6/uL (4.70-6.10); RED CELL DISTRIBUTION WIDTH 14.4 % (12.0-15.0); WHITE BLOOD COUNT 6.5 x10^3/uL (4.8-10.8)
[2018-10-22 03:05] LABS: INR 1.1 (0.8-1.2); PT - PROTHROMBIN TIME 12.4 secs (9.9-12.6)
[2018-10-22 03:12] LABS: ALBUMIN/GLOBULIN RATIO 1.3 (1.0-2.2); BILIRUBIN,TOTAL 1.1 mg/dL (0.2-1.0); CALCIUM 8.9 mg/dL (8.5-10.3); CREATININE 0.9 mg/dL (0.6-1.2); PARTIAL THROMBOPLASTIN TIME 26.2 secs (24.9-33.3)
== END 2018-10-22 03:54 | disposition home or self-care (01) ==
LOC: EDUNIT# → ED 02:05
DX: R07.9 Chest pain, unspecified (principal); R94.31 Abnormal electrocardiogram [ECG] [EKG]; M54.9 Dorsalgia, unspecified; G89.29 Other chronic pain; I10 Essential (primary) hypertension; I25.10 Atherosclerotic heart disease of native coronary artery without angina pectoris; I25.2 Old myocardial infarction; F17.200 Nicotine dependence, unspecified, uncomplicated; Z95.5 Presence of coronary angioplasty implant and graft; Z79.01 Long term (current) use of anticoagulants; Z79.82 Long term (current) use of aspirin
CPT/HCPCS: 36415; 71046; 80048; 80053; 83690; 84484; 85025; 85610; 85730; 93005; 96374; 99283; 99284

== ENCOUNTER 2019-01-18 04:06 | Outpatient (CLI) | payer MEDICARE, MEDICAID | END 2019-01-18 04:07 | disposition critical access hospital (66) | LOC: EMS 04:06 | PROVIDERS: ATTEND Surgery | DX: R07.9 Chest pain, unspecified (principal) | CPT/HCPCS: A0425; A0429 ==

== ENCOUNTER 2019-01-18 04:23 | Emergency (ER) | payer MEDICARE, MEDICAID ==
[2019-01-18 04:46] LABS: BASOPHILS # (AUTO) 0.1 10^3/uL (0.0-0.1); BASOPHILS % (AUTO) 1.2 %; EOSINOPHILS # (AUTO) 0.2 10^3/uL (0.0-0.7); EOSINOPHILS % (AUTO) 3.2 %; HGB - HEMOGLOBIN 15.9 g/dL (14.0-18.0); LYMPHOCYTES # (AUTO) 1.9 10^3/uL (1.5-3.5); LYMPHOCYTES % (AUTO) 33.7 %; MEAN CORPUSCULAR HEMOGLOBIN 30.9 pg (27.0-31.0); MEAN CORPUSCULAR HGB CONC 34.6 g/dL (32.0-36.0); MEAN CORPUSCULAR VOLUME 89.3 fL (80.0-94.0); MONOCYTES # (AUTO) 0.6 10^3/uL (0.0-1.0); MONOCYTES % (AUTO) 9.8 %; NEUTROPHILS # (AUTO) 2.9 10^3/uL (1.5-6.6); NEUTROPHILS % (AUTO) 51.6 %; PLT - PLATELET COUNT 145 10^3/uL (130-450); RED BLOOD COUNT 5.14 10^6/uL (4.70-6.10); RED CELL DISTRIBUTION WIDTH 13.2 % (12.0-15.0); WHITE BLOOD COUNT 5.6 x10^3/uL (4.8-10.8)
[2019-01-18] MEDS ORDERED: KETOROLAC 15 MG/ML VIAL IVP STA (04:50)
[2019-01-18] MEDS ORDERED: SODIUM CHLORIDE 0.9% 1,000 ML IV ONE (04:50)
[2019-01-18] MEDS ORDERED: HYDROmorphone 1 MG/ML CARPUJECT IVP STA (04:50)
--- NOTE | 2019-01-18 04:52 | ED Physician Documentation ---
PD HPI CHEST PAIN - Stated complaint Stated Complaint: CP - Chief complaint Chief Complaint: Cardiac - History obtained from History obtained from: Patient - History of Present Illness Timing - onset: How many hours ago (4-5 hours of back and chest pain, with the chest pain worsening about 1 am (3 hours ago). History of CAD with ID and stents, but subsequently having ER visits for chest/back pain that has been musculoskeletal (non cardiac). Last ER visit September 2018. He says he does take his meds regularly but is upset that his PMD does not Rx narcotic meds for his chronic back pain anymore.) Timing - onset during: Rest Timing - duration: Hours Timing - details: Gradual onset, Waxing and waning Quality: Aching, Sharp, Pain Location: Left chest Radiation: Back Improved by: Rest Worsened by: Inspiration, Movement, Palpation Associated symptoms: Feeling faint / dizzy. No: Shortness of air, Nausea, General Weakness, Palpitations, Cough Similar symptoms before: Diagnosis (Cardiac chest pain with ID and stents years ago. He states his most recent was about 3 years ago. He is also had musculoskeletal back and chest pain more recently.) Review of Systems Constitutional: denies: Fever, Chills Nose: denies: Rhinorrhea / runny nose, Congestion Throat: denies: Sore throat Cardiac: reports: Chest pain / pressure. denies: Palpitations, Pedal edema, Calf pain Respiratory: denies: Dyspnea, Cough GI: denies: Abdominal Pain, Nausea, Vomiting, Diarrhea Skin: denies: Rash, Lesions PD PAST MEDICAL HISTORY - Past Medical History Past Medical History: Yes Cardiovascular: Hypertension, High cholesterol, Coronary artery disease, [place] Respiratory: Sleep apnea Endocrine/Autoimmune: None GI: GERD : None HEENT: None Psych: None Musculoskeletal: Chronic back pain Derm: None - Past Surgical History Past Surgical History: Yes Ortho: Spine surgery Cardiovascular: Coronary stent - Present Medications Home Medications: Ambulatory Orders Medication Instructions Recorded Confirmed Aspirin [Bakari Chewable Aspirin] 81 mg ORAL DAILY 01/17/14 10/22/18 Clopidogrel Bisulfate [Plavix] 75 mg ORAL DAILY 01/17/14 10/22/18 Lisinopril [Zestril] 5 mg ORAL DAILY 01/17/14 10/22/18 Metoprolol Succinate [Toprol Xl] 25 mg ORAL BID 01/17/14 10/22/18 Nitroglycerin 0.4 mg SL Q5MIN PRN 01/17/14 10/22/18 Famotidine [Pepcid] 20 mg PO BID #60 tablet 09/20/15 10/22/18 Atorvastatin [Lipitor] 40 mg PO QPM 11/24/16 10/22/18 Oxycodone HCl/Acetaminophen 1 each PO TID PRN #25 tablet 03/02/17 10/22/18 [Percocet 7.5-325 mg Tablet] diazePAM [Diazepam] 5 mg PO TID PRN #20 tablet 03/02/17 10/22/18 Famotidine 20 mg PO BID #30 tablet 04/11/17 10/22/18 Lisinopril 5 mg PO DAILY #30 tablet 04/11/17 10/22/18 Metoprolol Succinate [Toprol Xl] 25 mg PO DAILY #30 tablet 04/11/17 10/22/18 diphenhydrAMINE [Benadryl] 25 - 50 mg PO Q6HR PRN #20 capsule 07/12/17 10/22/18 predniSONE [Deltasone] 40 mg PO DAILY 3 Days tablet 07/12/17 10/22/18 Sucralfate [Carafate] 1 gm PO ACHS #60 tablet 08/08/17 10/22/18 Albuterol Sulf [Ventolin Hfa 2 puffs INH Q4HR PRN #1 inhaler 10/07/17 10/22/18 Inhaler] raNITIdine [Zantac] 150 mg PO BID #60 tablet 12/18/17 10/22/18 Oxycodone HCl/Acetaminophen 1 each PO BID PRN #20 tablet 01/18/19 [Percocet 10-325 mg Tablet] dexAMETHasone [Decadron] 4 mg PO DAILY #5 tablet 01/18/19 - Allergies Allergies/Adverse Reactions: Allergies Allergy/AdvReac Type Severity Reaction Status Date / Time No Known Drug Allergies Allergy Verified 01/18/19 04:40 - Social History Does the pt smoke?: Yes Smoking Status: Current every day smoker Does the pt drink ETOH?: Yes Does the pt have substance abuse?: No - Immunizations Immunizations are current?: No Immunizations: TDAP >10years/unknown - POLST Patient has POLST: No PD ED PE NORMAL - Vitals Vital signs reviewed: Yes - General General: Alert and oriented X 3, Well developed/nourished - HEENT HEENT: Pharynx benign - Neck Neck: Supple, no meningeal sign, No adenopathy, No JVD - Cardiac Cardiac: RRR, No murmur - Respiratory Respiratory: Clear bilaterally, Other (left chest wall tenderness without crepitance nor rash. ) - Abdomen Abdomen: Normal bowel sounds, Soft, Non distended, No organomegaly, Other (some tenderness epigastric and upper left abd. No guarding. ) - Back Back: No CVA TTP - Derm Derm: Normal color, Warm and dry - Extremities Extremities: No tenderness to palpate, Normal ROM s pain, No edema, No calf tenderness / cord - Neuro Neuro: Alert and oriented X 3, No motor deficit, Normal speech Results - Vitals Vitals: Vital Signs - 24 hr 01/18/19 01/18/19 01/18/19 04:31 04:35 04:41 Temperature 36.8 C Heart Rate 94 89 Respiratory 12 13 Rate Blood Pressure 114/81 H 122/79 Blood Pressure 114/81 H [Left] Blood Pressure 122/79 [Right] O2 Saturation 97 96 01/18/19 01/18/19 05:19 05:53 Temperature Heart Rate 77 85 Respiratory 12 18 Rate Blood Pressure 124/83 H 109/74 Blood Pressure [Left] Blood Pressure [Right] O2 Saturation 99 98 Oxygen O2 Source Room air - EKG (time done) 04:28 Rate: Rate (enter#) (93) Rhythm: NSR [place]: Normal Intervals: Normal [place] QRS: Normal Ischemia: Normal ST segments. No: ST elevation c/w ischemia, ST depression Compare to prior EKG: Unchanged from prior EKG - Labs Labs: Laboratory Tests 01/18/19 01/18/19 01/18/19 04:30 04:30 05:00 WBC 5.6 RBC 5.14 Hgb 15.9 Hct 45.9 MCV 89.3 MCH 30.9 MCHC 34.6 RDW 13.2 Plt Count 145 MPV 10.0 Neut # (Auto) 2.9 Lymph # (Auto) 1.9 [place] # (Auto) 0.6 Eos # (Auto) 0.2 Baso # (Auto) 0.1 Absolute Nucleated RBC 0.00 Nucleated RBC % 0.0 Sodium 144 Potassium 3.8 Chloride 107 Carbon Dioxide 23 Anion Gap 14.0 H BUN 14 Creatinine 0.7 Estimated GFR (MDRD) 114 Glucose 99 Calcium 8.9 Magnesium 2.1 Total Bilirubin 0.8 AST 22 ALT 21 Alkaline Phosphatase 67 Troponin I Troponin I High Sens Total Protein 6.4 L Albumin 3.5 Globulin 2.9 Albumin/Globulin Ratio 1.2 Lipase 60 H Ethyl Alcohol 153.8 01/18/19 05:00 WBC RBC Hgb Hct MCV MCH MCHC RDW Plt Count MPV Neut # (Auto) Lymph # (Auto) [place] # (Auto) Eos # (Auto) Baso # (Auto) Absolute Nucleated RBC Nucleated RBC % Sodium Potassium Chloride Carbon Dioxide Anion Gap BUN Creatinine Estimated GFR (MDRD) Glucose Calcium Magnesium Total Bilirubin AST ALT Alkaline Phosphatase Troponin I < 0.04 Troponin I High Sens 9.3 Total Protein Albumin Globulin Albumin/Globulin Ratio Lipase Ethyl Alcohol - Rads (name of study) chest xray Radiology: Prelim report reviewed (no acute process), EMP read contemporaneously, See rad report PD MEDICAL DECISION MAKING - ED course Complexity details: reviewed old records, reviewed results, re-evaluated patient, considered differential, d/w patient Departure - Departure Disposition: Home, Self Care Clinical Impression: Musculoskeletal chest pain, Chronic high back pain Condition: Stable Record reviewed to determine appropriate education?: Yes Instructions: ED Chronic Pain Management, ED Chest Pain Atypical Unkn Cause Follow-Up: [facility] [Provider Group] [facility] [Provider Group] Prescriptions: dexAMETHasone [Decadron] 4 mg PO DAILY #5 tablet Oxycodone HCl/Acetaminophen [Percocet 10-325 mg Tablet] 1 each PO BID PRN #20 tablet PRN Reason: Pain Comments: No signs of heart attack or heart failure by your testing. It seems musculoskeletal pain with the tenderness to palpation and movement. Use Decadron steroid anti-inflammatory daily for the next several days. Add oxycodone as needed for pain short-term. This would not be a preferred medication for long-term but just for this flareup right now. Follow-up with the primary care and continue your other usual medications.
--- NOTE | 2019-01-18 05:16 | XRAY Report ---
Reason: chest pain Procedure Date: 01/18/2019 Accession Number: [id number] / [id number] Procedure: XR - Chest 1 View X-Ray CPT Code: 17381 FULL RESULT: EXAM: CHEST RADIOGRAPHY EXAM DATE: 01/18/2019 05:07 AM. CLINICAL HISTORY: Chest pain. COMPARISON: CHEST 2 VIEW 10/22/2018 2:35 AM. TECHNIQUE: 1 view. FINDINGS: Lungs/Pleura: No focal opacities evident. No pleural effusion. No pneumothorax. Mediastinum: Within exam limitations, the cardiomediastinal contour is normal. Other: None. IMPRESSION: Normal single view chest. RADIA
[2019-01-18 05:50] LABS: TROPONIN I < 0.04 ng/mL (<0.49)
[2019-01-18 05:51] LABS: MAGNESIUM 2.1 mg/dL (1.7-2.8)
[2019-01-18 05:52] LABS: ALBUMIN 3.5 g/dL (3.2-5.5); ALBUMIN/GLOBULIN RATIO 1.2 (1.0-2.2); BILIRUBIN,TOTAL 0.8 mg/dL (0.2-1.0); CALCIUM 8.9 mg/dL (8.5-10.3); CREATININE 0.7 mg/dL (0.6-1.2); TOTAL PROTEIN 6.4 g/dL (6.7-8.2)
[2019-01-18 06:13] VITALS: BP 119/73
== END 2019-01-18 06:21 | disposition home or self-care (01) ==
LOC: EDUNIT# → ED 04:23
DX: R07.89 Other chest pain (principal); G89.29 Other chronic pain; M54.6 Pain in thoracic spine; I10 Essential (primary) hypertension; I25.2 Old myocardial infarction; Z95.5 Presence of coronary angioplasty implant and graft; F17.200 Nicotine dependence, unspecified, uncomplicated
CPT/HCPCS: 36415; 71045; 80053; 83690; 83735; 84484; 85025; 93005; 96361; 96374; 96375; 99284; J1170; 80320

== ENCOUNTER 2019-02-04 23:38 | Outpatient (CLI) | payer MEDICARE, MEDICAID | END 2019-02-04 23:39 | disposition critical access hospital (66) | LOC: EMS 23:38 | PROVIDERS: ATTEND Surgery | DX: M54.5 Low back pain (principal); R07.89 Other chest pain | CPT/HCPCS: A0425; A0429 ==

== ENCOUNTER 2019-02-04 23:57 | Emergency (ER) | payer MEDICARE, MEDICAID ==
--- NOTE | 2019-02-05 00:28 | ED Physician Documentation ---
PD HPI ABD PAIN - Stated complaint Stated Complaint: CP, BACK PAIN - Chief complaint Chief Complaint: Back Pain - History obtained from History obtained from: Patient - History of Present Illness Timing - onset: How many years ago Timing - details: Gradual onset Quality: Pain Location: All over / everywhere Radiation: Chest Associated symptoms: Nausea, Chest pain. No: Fever, Vomiting, Diarrhea, Dysuria Recently seen: Not recently seen - Additional information Additional information: This is a 63-year-old man with a heavy accent presents tonight with complaints that his low back is hurting in his chest is hurting for the past 4 hours. He describes it as "the worst". Is a very poor historian telling me that he has back and chest pain "all the time". 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 Apparently the pain got worse tonight than it normally is above his chronic level. He does feel short of breath. He felt sweaty last night but not tonight. He is been nauseous but no vomiting. Denies coughing. 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 Came in by ambulance tonight and does report a history of gallstones in the past. He denies alcohol use. Review of Systems Unable to obtain: Other (Acute pain) Constitutional: denies: Fever Throat: denies: Sore throat Cardiac: reports: Chest pain / pressure Respiratory: reports: Dyspnea GI: reports: Abdominal Pain, Nausea. denies: Vomiting : denies: Dysuria, Frequency Skin: denies: Rash Musculoskeletal: reports: Back pain Neurologic: reports: Numbness (Chronic in the left leg). denies: Generalized weakness, Focal weakness PD PAST MEDICAL HISTORY - Past Medical History Past Medical History: Yes Cardiovascular: Hypertension, High cholesterol, Coronary artery disease, [place] Respiratory: Sleep apnea Endocrine/Autoimmune: None GI: GERD : None HEENT: None Psych: None Musculoskeletal: Chronic back pain Derm: None - Past Surgical History Past Surgical History: Yes Ortho: Spine surgery Cardiovascular: Coronary stent - Present Medications Home Medications: Ambulatory Orders Medication Instructions Recorded Confirmed No Known Home Medications 02/05/19 02/05/19 - Allergies Allergies/Adverse Reactions: Allergies Allergy/AdvReac Type Severity Reaction Status Date / Time No Known Drug Allergies Allergy Verified 02/05/19 00:05 - Social History Does the pt smoke?: Yes Smoking Status: Current every day smoker Does the pt drink ETOH?: Yes Does the pt have substance abuse?: No - Immunizations Immunizations are current?: No Immunizations: TDAP >10years/unknown - POLST Patient has POLST: No PD ED PE NORMAL - Vitals Vital signs reviewed: Yes - General General: Alert and oriented X 3, Well developed/nourished, Other (He is sitting bolt upright in the exam chair supporting himself on his arms. He smells of alcohol.) - HEENT HEENT: Atraumatic - Cardiac Cardiac: No murmur, Other (Tachycardic) - Respiratory Respiratory: Other (Splinting with respirations) - Abdomen Abdomen: Normal bowel sounds, Other (Is abdominal tenderness with guarding) - Derm Derm: Normal color, No rash - Extremities Extremities: No edema - Neuro Neuro: Alert and oriented X 3, Normal speech, Other (No gross neurological deficits) - Psych Psych: Normal mood, Normal affect Results - Vitals Vitals: Vital Signs - 24 hr 02/04/19 02/05/19 02/05/19 23:59 00:08 00:48 Temperature 36.4 C L Heart Rate 122 H 120 H 110 H Respiratory 16 14 Rate Blood Pressure 129/93 H O2 Saturation 98 95 02/05/19 02/05/19 01:09 03:04 Temperature 36.4 C L Heart Rate 94 100 Respiratory 17 14 Rate Blood Pressure 109/78 133/98 H O2 Saturation 97 97 Oxygen O2 Source Room air - EKG (time done) 122 Rate: Rate (enter#) Rhythm: Sinus tachycardia Ischemia: Non specific changes Other comments: Other comments (Nonspecific conduction delay) Compare to prior EKG: Old EKG unavailable - Labs Labs: Laboratory Tests 02/05/19 02/05/19 02/05/19 00:50 00:50 00:50 WBC 7.5 RBC 5.67 Hgb 16.7 Hct 50.3 MCV 88.7 MCH 29.5 MCHC 33.2 RDW 13.2 Plt Count 160 MPV 10.2 Neut # (Auto) 4.3 Lymph # (Auto) 2.2 [place] # (Auto) 0.6 Eos # (Auto) 0.2 Baso # (Auto) 0.1 Absolute Nucleated RBC 0.00 Nucleated RBC % 0.0 Sodium 142 Potassium 3.7 Chloride 106 Carbon Dioxide 17 L Anion Gap 19.0 H BUN 10 Creatinine 0.9 Estimated GFR (MDRD) 85 L Glucose 151 H Calcium 9.5 Total Bilirubin Direct Bilirubin AST ALT Alkaline Phosphatase Troponin I High Sens 7.8 Total Protein Albumin Globulin Lipase Urine Color Urine Clarity Urine pH Ur Specific [place] Urine Protein Urine Glucose (UA) Urine Ketones Urine Occult Blood Urine Nitrite Urine Bilirubin Urine Urobilinogen Ur Leukocyte Esterase Ur Microscopic Review Urine Culture Comments Ethyl Alcohol 104.9 02/05/19 02/05/19 00:50 01:46 WBC RBC Hgb Hct MCV MCH MCHC RDW Plt Count MPV Neut # (Auto) Lymph # (Auto) [place] # (Auto) Eos # (Auto) Baso # (Auto) Absolute Nucleated RBC Nucleated RBC % Sodium Potassium Chloride Carbon Dioxide Anion Gap BUN Creatinine Estimated GFR (MDRD) Glucose Calcium Total Bilirubin 1.0 Direct Bilirubin 0.1 AST 39 ALT 40 Alkaline Phosphatase 77 Troponin I High Sens Total Protein 7.2 Albumin 4.0 Globulin 3.2 Lipase 82 H Urine Color YELLOW Urine Clarity CLEAR Urine pH 5.0 Ur Specific [place] 1.025 Urine Protein NEGATIVE Urine Glucose (UA) NEGATIVE Urine Ketones TRACE Urine Occult Blood NEGATIVE Urine Nitrite NEGATIVE Urine Bilirubin NEGATIVE Urine Urobilinogen 0.2 (NORMAL) Ur Leukocyte Esterase NEGATIVE Ur Microscopic Review NOT INDICATED Urine Culture Comments NOT INDICATED Ethyl Alcohol - Rads (name of study) CXR Radiology: See rad report PD MEDICAL DECISION MAKING - ED course Complexity details: reviewed old records, reviewed results, re-evaluated patient, d/w patient ED course: The patient denies use of alcohol to me however his alcohol level was over 100. When I confronted him with this he initially continued to deny the use of alcohol but then said he did not drink hard liquor but he might have a beer or 2 occasionally.His EKG did not have any acute changes. His high-sensitivity troponin was normal. His lipase was elevated at 84 but he has had chronic elevation of the lipase as recently as December. He tells me repeatedly that he has been discharged from his primary care provider's office and is no longer receiving narcotics for his chronic back pain. He has not seen a pain management physician. I explained to him that we cannot prescribe narcotics from the emergency department. He was medicated with Toradol 30 mg IV given a liter of fluids and given Pepcid 20 mg IV. I did give him one oxycodone tablet to help with his acute pain tonight we discussed the results of his labs and EKG. 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 Your tests around your heart tonight appear normal. Would also recommend that you stop drinking. There is evidence of ongoing pancreas injury that is most likely due to the alcohol consumption. Discharge Date/Time: 02/05/19 03:15
[2019-02-05] MEDS ORDERED: SODIUM CHLORIDE 0.9% 1,000 ML IV ONE (00:30)
[2019-02-05] MEDS ORDERED: KETOROLAC 30 MG/ML VIAL IVP STA (00:30)
--- NOTE | 2019-02-05 00:49 | XRAY Report ---
Reason: chest pain Procedure Date: 02/05/2019 Accession Number: [id number] / [id number] Procedure: XR - Chest 1 View X-Ray CPT Code: 42156 FULL RESULT: EXAM: CHEST RADIOGRAPHY EXAM DATE: 02/05/2019 12:43 AM CLINICAL HISTORY: Chest pain. COMPARISON: CHEST 1 VIEW 01/18/2019 4:52 AM. TECHNIQUE: 1 view. FINDINGS: Lungs/Pleura: No focal opacities evident. No pleural effusion. No pneumothorax. Mediastinum: Within exam limitations, the cardiomediastinal contour is normal. Other: None. IMPRESSION: Normal single view chest. RADIA
[2019-02-05 00:57] LABS: BASOPHILS % (AUTO) 1.3 %; EOSINOPHILS % (AUTO) 2.7 %; HGB - HEMOGLOBIN 16.7 g/dL (14.0-18.0); LYMPHOCYTES # (AUTO) 2.2 10^3/uL (1.5-3.5); LYMPHOCYTES % (AUTO) 29.3 %; MEAN CORPUSCULAR HEMOGLOBIN 29.5 pg (27.0-31.0); MEAN CORPUSCULAR HGB CONC 33.2 g/dL (32.0-36.0); MEAN CORPUSCULAR VOLUME 88.7 fL (80.0-94.0); MEAN PLATELET VOLUME 10.2 fL (7.4-11.4); MONOCYTES # (AUTO) 0.6 10^3/uL (0.0-1.0); MONOCYTES % (AUTO) 8.2 %; NEUTROPHILS # (AUTO) 4.3 10^3/uL (1.5-6.6); NEUTROPHILS % (AUTO) 57.7 %; PLT - PLATELET COUNT 160 10^3/uL (130-450); RED BLOOD COUNT 5.67 10^6/uL (4.70-6.10); RED CELL DISTRIBUTION WIDTH 13.2 % (12.0-15.0); WHITE BLOOD COUNT 7.5 x10^3/uL (4.8-10.8)
[2019-02-05 00:58] LABS: BASOPHILS # (AUTO) 0.1 10^3/uL (0.0-0.1); EOSINOPHILS # (AUTO) 0.2 10^3/uL (0.0-0.7)
[2019-02-05 01:11] LABS: CALCIUM 9.5 mg/dL (8.5-10.3); CREATININE 0.9 mg/dL (0.6-1.2)
[2019-02-05 01:49] LABS: BILIRUBIN,URINE NEGATIVE (NEGATIVE); GLUCOSE, URINE (UA) NEGATIVE (NEGATIVE); KETONES,URINE (UA) TRACE mg/dL (NEGATIVE); LEUKOCYTE ESTERASE, URINE NEGATIVE (NEGATIVE); NITRITE,URINE NEGATIVE (NEGATIVE); OCCULT BLOOD,URINE NEGATIVE (NEGATIVE); PROTEIN,URINE NEGATIVE (NEGATIVE); UROBILINOGEN,URINE 0.2 (NORMAL) E.U./dL (NORMAL)
[2019-02-05 01:51] LABS: CLARITY,URINE CLEAR (CLEAR)
[2019-02-05 01:56] LABS: BILIRUBIN,DIRECT 0.1 mg/dL (0.1-0.5); TOTAL PROTEIN 7.2 g/dL (6.7-8.2)
[2019-02-05] MEDS ORDERED: FAMOTIDINE 20 MG/2 ML VIAL IVP STA (02:09)
[2019-02-05 03:05] VITALS: BP 133/98
[2019-02-05] MEDS ORDERED: oxyCODONE 5 MG TABLET PO STA (03:05)
== END 2019-02-05 03:15 | disposition home or self-care (01) ==
LOC: EDUNIT# → ED 23:57
DX: R07.89 Other chest pain (principal); M54.5 Low back pain; I10 Essential (primary) hypertension; F17.200 Nicotine dependence, unspecified, uncomplicated
CPT/HCPCS: 36415; 71045; 80048; 80076; 81003; 83690; 84484; 85025; 96361; 96374; 96375; 99284; A9270; 80320; 81001; 87086

== ENCOUNTER 2019-02-12 08:26 | Outpatient (CLI) | payer MEDICARE, MEDICAID | END 2019-02-12 08:27 | disposition critical access hospital (66) | LOC: EMS 08:26 | PROVIDERS: ATTEND Surgery | DX: R07.9 Chest pain, unspecified (principal) | CPT/HCPCS: A0425; A0427 ==

== ENCOUNTER 2019-02-12 08:46 | Emergency (ER) | payer MEDICARE, MEDICAID ==
--- NOTE | 2019-02-12 08:58 | ED Physician Documentation ---
PD HPI CHEST PAIN - Stated complaint Stated Complaint: CP - Chief complaint Chief Complaint: Cardiac - History obtained from History obtained from: Patient - History of Present Illness Timing - onset: Enter time (529), Today Timing - onset during: Rest Timing - duration: Hours Timing - details: Abrupt onset, Still present Quality: Sharp, Pain Location: Substernal Radiation: Back Improved by: Nothing Worsened by: Inspiration, Palpation Associated symptoms: No: Shortness of air, Diaphoresis, Nausea, Vomiting, Feeling faint / dizzy, General Weakness, Palpitations, Cough Similar symptoms before: Diagnosis (atypical chest pain/[place]) Recently seen: Emergency Dept - Additional information Additional information: 63-year-old male with a history of coronary artery disease having received 5 stents to his right coronary artery has developed acute chest pain this morning at about 5:30 AM. He has had episodes of this similar previously he has been diagnosed with atypical chest pain. The patient is a poor historian and relates that he has had stents placed and that he has had surgery to his lower back. He indicates that he is no longer on pain medication of pain management related to this and lives with constant pain. He has pain in his neck as well. Today his chest pain is unrelenting. Review of Systems Constitutional: denies: Fever Eyes: denies: Decreased vision Ears: denies: Ear pain Nose: denies: Congestion Throat: denies: Sore throat Cardiac: reports: Chest pain / pressure. denies: Palpitations, Pedal edema, Calf pain Respiratory: denies: Dyspnea, Cough, Wheezing GI: denies: Abdominal Pain, Nausea, Vomiting : denies: Dysuria, Frequency PD PAST MEDICAL HISTORY - Past Medical History Cardiovascular: Hypertension, High cholesterol, Coronary artery disease, [place] Respiratory: Sleep apnea Endocrine/Autoimmune: None GI: GERD : None HEENT: None Psych: None Musculoskeletal: Chronic back pain Derm: None - Past Surgical History Past Surgical History: Yes Ortho: Spine surgery Cardiovascular: Coronary stent - Present Medications Home Medications: Ambulatory Orders Medication Instructions Recorded Confirmed Cyclobenzaprine [Flexeril] 10 mg PO TID PRN #20 tablet 02/12/19 Hydrocodone/Acetaminophen 1 - 2 each PO Q6H PRN #14 tablet 02/12/19 [Hydrocodon-Acetaminophen 5-325] RX: Metoprolol Succinate 50 mg PO DAILY PM #30 tab.er.24h 02/12/19 - Allergies Allergies/Adverse Reactions: Allergies Allergy/AdvReac Type Severity Reaction Status Date / Time No Known Drug Allergies Allergy Verified 02/12/19 08:54 - Social History Does the pt smoke?: Yes Smoking Status: Current every day smoker Does the pt drink ETOH?: Yes Does the pt have substance abuse?: No - Immunizations Immunizations are current?: No Immunizations: TDAP >10years/unknown - POLST Patient has POLST: No PD ED PE NORMAL - Vitals Vital signs reviewed: Yes - General General: Alert and oriented X 3, Well developed/nourished, 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 (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 give the appearence of pain ) - HEENT HEENT: Atraumatic, PERRL, EOMI, Other (dry mucous membranes ) - Neck Neck: Supple, no meningeal sign, No bony TTP - Cardiac Cardiac: RRR, No murmur - Respiratory Respiratory: No respiratory distress, Clear bilaterally - Abdomen Abdomen: Soft, Other (RUQ tenderness with arrest with respiration ) - Back Back: No CVA TTP, No spinal TTP - Derm Derm: Normal color, Warm and dry, No rash - Extremities Extremities: No deformity, No edema - Neuro Neuro: Alert and oriented X 3, barrel filler head 2-12 intact, No motor deficit, No sensory deficit, Normal speech Eye Opening: Spontaneous Motor: Obeys Commands Verbal: Oriented GCS Score: 15 - Psych Psych: Normal mood, Normal affect Results - Vitals Vitals: Vital Signs - 24 hr 02/12/19 02/12/19 02/12/19 08:51 09:35 11:46 Temperature 36.4 C L Heart Rate 80 71 62 Respiratory Rate Blood Pressure 162/95 H 151/93 H 143/92 H O2 Saturation 100 99 98 02/12/19 12:12 Temperature Heart Rate 59 L Respiratory 12 Rate Blood Pressure 140/87 H O2 Saturation 98 Oxygen O2 Source Room air - EKG (time done) 0851 Rate: Rate (enter#) (79) Intervals: Other (short RI) Ischemia: Q waves Compare to prior EKG: Changed from prior EKG (SPT 02-04-19 rate has slowed. ) Computer interpretation: Agree with computer - Labs Labs: Laboratory Tests 02/12/19 02/12/19 02/12/19 09:09 09:09 09:09 WBC 5.0 RBC 5.78 Hgb 17.0 Hct 51.1 MCV 88.4 MCH 29.4 MCHC 33.3 RDW 13.2 Plt Count 142 MPV 10.2 Neut # (Auto) 3.1 Lymph # (Auto) 1.2 L [place] # (Auto) 0.5 Eos # (Auto) 0.1 Baso # (Auto) 0.1 Absolute Nucleated RBC 0.00 Nucleated RBC % 0.0 Sodium 139 Potassium 3.8 Chloride 100 L Carbon Dioxide 22 Anion Gap 17.0 H BUN 10 Creatinine 1.0 Estimated GFR (MDRD) 75 L Glucose 111 H Calcium 9.4 Total Bilirubin 1.6 H AST 35 ALT 30 Alkaline Phosphatase 69 Troponin I High Sens 5.2 Total Protein 7.8 Albumin 4.4 Globulin 3.4 Albumin/Globulin Ratio 1.3 Lipase 55 H Ethyl Alcohol < 5.0 - Rads (name of study) chest 1 view Radiology: Prelim report reviewed (Impression: No acute cardiopulmonary abnormality demonstrated.), EMP read indepedently, See rad report gb u/s Radiology: Prelim report reviewed (Impression: 1. Fatty infiltrated liver which may have cirrhotic changes. No gallstones), EMP read indepedently, See rad report Procedures - Bedside sono Bedside sono by EMP: With the use of bedside ultrasound the right upper quadrant is imaged there is a contracted gallbladder that appears to have multiple stones. The area is sonographically tender. PD MEDICAL DECISION MAKING - ED course Complexity details: reviewed results, re-evaluated patient, considered differential, d/w patient ED course: 63-year-old male again with pain in his back and neck and chest appears to have excessive pain behavior and examination including electric cardiogram and high- sensitivity troponin troponin were negative. Ultrasound the patient's gallbladder was obtained as he did appear to have some right upper quadrant sensitivity this showed a normal-appearing gallbladder. He is work-up is reassuring the patient's behavior is concerning for pain behavior. He is currently without a primary care provider and he is given a short course of pain medication as he does appear to be in pain. Departure - Departure Disposition: 01 Home, Self Care Clinical Impression: Atypical chest pain, Chronic back pain greater than 3 months duration Hypertension Qualifiers: Hypertension type: unspecified Qualified Code(s): I10 - Essential (primary) hypertension Condition: Stable Instructions: ED Chronic Pain Management, ED Chest Pain Atypical Unkn Cause Follow-Up: [facility] [Provider Group] [facility] [Provider Group] Prescriptions: Cyclobenzaprine [Flexeril] 10 mg PO TID PRN #20 tablet PRN Reason: Spasms Hydrocodone/Acetaminophen [Hydrocodon-Acetaminophen 5-325] 1 - 2 each PO Q6H PRN #14 tablet PRN Reason: pain RX: Metoprolol Succinate 50 mg PO DAILY PM #30 tab.er.24h Discharge Date/Time: 02/12/19 12:58
[2019-02-12 09:16] LABS: BASOPHILS # (AUTO) 0.1 10^3/uL (0.0-0.1); BASOPHILS % (AUTO) 1.6 %; EOSINOPHILS # (AUTO) 0.1 10^3/uL (0.0-0.7); LYMPHOCYTES # (AUTO) 1.2 10^3/uL (1.5-3.5); LYMPHOCYTES % (AUTO) 24.2 %; MEAN CORPUSCULAR HEMOGLOBIN 29.4 pg (27.0-31.0); MEAN CORPUSCULAR HGB CONC 33.3 g/dL (32.0-36.0); MEAN CORPUSCULAR VOLUME 88.4 fL (80.0-94.0); MEAN PLATELET VOLUME 10.2 fL (7.4-11.4); MONOCYTES # (AUTO) 0.5 10^3/uL (0.0-1.0); MONOCYTES % (AUTO) 10.1 %; NEUTROPHILS # (AUTO) 3.1 10^3/uL (1.5-6.6); NEUTROPHILS % (AUTO) 61.9 %; PLT - PLATELET COUNT 142 10^3/uL (130-450); RED BLOOD COUNT 5.78 10^6/uL (4.70-6.10); RED CELL DISTRIBUTION WIDTH 13.2 % (12.0-15.0)
[2019-02-12] MEDS ORDERED: KETOROLAC 30 MG/ML VIAL IVP STA (09:22)
--- NOTE | 2019-02-12 09:30 | XRAY Report ---
Reason: chest pain Procedure Date: 02/12/2019 Accession Number: [id number] / [id number] Procedure: XR - Chest 1 View X-Ray CPT Code: 69268 FULL RESULT: EXAM: CHEST RADIOGRAPHY EXAM DATE: 02/12/2019 09:24 AM. CLINICAL HISTORY: Chest pain. COMPARISON: CHEST 1 VIEW 02/05/2019 12:27 AM. TECHNIQUE: 1 view. FINDINGS: Lungs/Pleura: No focal opacities evident. No pleural effusion. No pneumothorax. Mediastinum: Within exam limitations, the cardiomediastinal contour is normal. Other: Old left mid clavicle fracture again seen. IMPRESSION: No acute cardiopulmonary abnormality demonstrated. RADIA
[2019-02-12 09:40] LABS: ALBUMIN 4.4 g/dL (3.2-5.5); ALBUMIN/GLOBULIN RATIO 1.3 (1.0-2.2); ALKALINE PHOSPHATASE 69 IU/L (42-121); ALT ALANINE AMINOTRANSFERASE 30 IU/L (10-60); AST ASPARTATE AMINOTRANSFERASE 35 IU/L (10-42); BILIRUBIN,TOTAL 1.6 mg/dL (0.2-1.0); BUN - BLOOD UREA NITROGEN 10 mg/dL (6-20); CALCIUM 9.4 mg/dL (8.5-10.3); CARBON DIOXIDE - CO2 22 mmol/L (21-32); CHLORIDE 100 mmol/L (101-111); GFR - MDRD 75 (>89); GLUCOSE 111 mg/dL (70-100); LIPASE 55 U/L (22-51); SODIUM 139 mmol/L (135-145); TOTAL PROTEIN 7.8 g/dL (6.7-8.2)
--- NOTE | 2019-02-12 10:59 | Ultrasound Report ---
Reason: RUQ pain Procedure Date: 02/12/2019 Accession Number: [id number] / [id number] Procedure: US - Abdomen Limited CPT Code: FULL RESULT: EXAM: ABDOMEN ULTRASOUND LIMITED, RUQ EXAM DATE: 02/12/2019 10:46 AM. CLINICAL HISTORY: RUQ pain. COMPARISON: ABDOMEN/PELVIS W/O 12/18/2017 9:26 AM. TECHNIQUE: Real-time scanning was performed with static images obtained. FINDINGS: Liver: Normal in size, echogenic, heterogeneous, possible capsular nodularity 14.7 cm. Main portal vein flow: Hepatopetal. Gallbladder: Normal. No stones, wall thickening, or sonographic Chávez's sign. Biliary System: CBD measures 5 mm. No intrahepatic or extrahepatic ductal dilatation. Right kidney: 10.9 cm. Unremarkable IMPRESSION: 1. Fatty infiltrated liver which may have cirrhotic changes 2. No gallstones RADIA
[2019-02-12] MEDS ORDERED: METOPROLOL TARTRATE 50 MG TABLET PO STA (11:02)
[2019-02-12] MEDS ORDERED: DEXAMETHASONE 10 MG/ML VIAL IVP STA (11:49)
[2019-02-12] MEDS ORDERED: HYDROmorphone 1 MG/ML CARPUJECT IVP STA (11:50)
[2019-02-12] MEDS ORDERED: ONDANSETRON 4 MG/2 ML VIAL IVP STA (11:50)
[2019-02-12 12:12] VITALS: BP 140/87
== END 2019-02-12 12:58 | disposition home or self-care (01) ==
LOC: EDUNIT# → ED 08:46
DX: R07.89 Other chest pain (principal); M54.9 Dorsalgia, unspecified; G89.29 Other chronic pain; I10 Essential (primary) hypertension; I25.10 Atherosclerotic heart disease of native coronary artery without angina pectoris; I25.2 Old myocardial infarction; Z95.5 Presence of coronary angioplasty implant and graft; K76.0 Fatty (change of) liver, not elsewhere classified; F17.200 Nicotine dependence, unspecified, uncomplicated
CPT/HCPCS: 36415; 71045; 76705; 80053; 83690; 84484; 85025; 93005; 96374; 96375; 99284; 99285; A9270; J1170; 80320

== ENCOUNTER 2019-03-26 12:43 | Outpatient (CLI) | payer MEDICARE, MEDICAID | END 2019-03-26 12:44 | disposition critical access hospital (66) | LOC: EMS 12:43 | PROVIDERS: ATTEND Surgery | DX: R10.30 Lower abdominal pain, unspecified (principal) | CPT/HCPCS: A0425; A0427 ==

== ENCOUNTER 2019-03-26 13:10 | Emergency (ER) | payer MEDICARE, MEDICAID ==
[2019-03-26 13:35] LABS: BASOPHILS # (AUTO) 0.2 10^3/uL (0.0-0.1); BASOPHILS % (AUTO) 1.1 %; EOSINOPHILS # (AUTO) 0.1 10^3/uL (0.0-0.7); EOSINOPHILS % (AUTO) 0.8 %; HGB - HEMOGLOBIN 16.9 g/dL (14.0-18.0); LYMPHOCYTES # (AUTO) 1.5 10^3/uL (1.5-3.5); LYMPHOCYTES % (AUTO) 11.5 %; MEAN CORPUSCULAR HEMOGLOBIN 30.6 pg (27.0-31.0); MEAN CORPUSCULAR HGB CONC 35.1 g/dL (32.0-36.0); MEAN CORPUSCULAR VOLUME 87.2 fL (80.0-94.0); MONOCYTES # (AUTO) 0.9 10^3/uL (0.0-1.0); MONOCYTES % (AUTO) 6.6 %; NEUTROPHILS # (AUTO) 10.5 10^3/uL (1.5-6.6); NEUTROPHILS % (AUTO) 79.5 %; PLT - PLATELET COUNT 164 10^3/uL (130-450); RED BLOOD COUNT 5.53 10^6/uL (4.70-6.10); RED CELL DISTRIBUTION WIDTH 13.5 % (12.0-15.0); WHITE BLOOD COUNT 13.3 x10^3/uL (4.8-10.8)
[2019-03-26 13:49] LABS: ALBUMIN 4.6 g/dL (3.2-5.5); ALBUMIN/GLOBULIN RATIO 1.6 (1.0-2.2); BILIRUBIN,TOTAL 2.1 mg/dL (0.2-1.0); CALCIUM 9.3 mg/dL (8.5-10.3); TOTAL PROTEIN 7.5 g/dL (6.7-8.2)
[2019-03-26] MEDS ORDERED: MORPHINE 2 MG/ML CARPUJECT IVP STA ×2 (14:14→15:15)
[2019-03-26] MEDS ORDERED: ONDANSETRON 4 MG/2 ML VIAL IVP STA (14:15)
[2019-03-26] MEDS ORDERED: SODIUM CHLORIDE 0.9% 1,000 ML IV ONE (14:15)
[2019-03-26] MEDS ORDERED: MAG HYDROX/AL HYDROX/SIMETH 30 ML UDC PO STA (15:16)
[2019-03-26] MEDS ORDERED: LIDOCAINE VISCOUS 2% 15 ML UDC MM STA (15:16)
[2019-03-26] MEDS ORDERED: IOVERSOL 320 100 ML VIAL IVP ONE ×2 (15:35→15:54)
--- NOTE | 2019-03-26 16:24 | CT Report ---
Reason: abdominal pain Procedure Date: 03/26/2019 Accession Number: [id number] / [id number] Procedure: CT - Abdomen/Pelvis W CPT Code: FULL RESULT: EXAM: CT ABDOMEN AND PELVIS EXAM DATE: 03/26/2019 03:52 PM. CLINICAL HISTORY: Abdominal pain. Lower bilateral abdominal pain. COMPARISONS: ABDOMEN/PELVIS W/O 12/18/2017 9:26 AM. TECHNIQUE: Routine helical CT imaging was performed through the abdomen and pelvis. IV contrast: Optiray-320 100 mL. Enteric contrast: No. Reconstructions: Coronal and sagittal. In accordance with CT protocol optimization, one or more of the following dose reduction techniques were utilized for this exam: automated exposure control, adjustment of mA and/or KV based on patient size, or use of iterative reconstructive technique. FINDINGS: Lung bases: Mild right base probable dependent atelectasis. Coronary artery calcification. Liver: Diffuse fatty liver. Gallbladder: Unremarkable. Bile ducts: Unremarkable. Pancreas: Unremarkable. Spleen: Unremarkable. Adrenals: Unremarkable. Kidneys: Small probable renal cysts left kidney, too small to fully characterize. No hydronephrosis. Right parapelvic renal cyst. Bowel: Normal appendix. Mild diffuse colonic diverticulosis. No acute bowel findings are seen. No dilated bowel loops are seen. No free fluid or free air. Pelvis: The bladder and remaining pelvic organs appear unremarkable. Bilateral wide neck fat-containing direct inguinal hernias appear similar to the prior, left greater than right, the left neck measures 3.7 cm. Vasculature: No acute findings. Bones: No acute bone findings. IMPRESSION: 1. Fatty liver. 2. Mild colonic diverticulosis without evidence for acute diverticulitis. Normal appendix. 3. Bilateral wide neck fat-containing direct inguinal hernias appear similar to the prior, left greater than right, the left neck measures 3.7 cm. 4. See above. RADIA
[2019-03-26 16:35] VITALS: BP 113/96
--- NOTE | 2019-03-26 16:36 | ED Physician Documentation ---
PD HPI ABD PAIN - Stated complaint Stated Complaint: ABD PX - Chief complaint Chief Complaint: Abd Pain - History obtained from History obtained from: Patient - History of Present Illness Timing - onset: Last night Timing - details: Still present Quality: Pain Location: All over / everywhere Similar symptoms before: Diagnosis (History of pancreatitis.) - Treatment prior to arrival Treatment prior to arrival: Medics administered morphine 4 mg IV. - Additional information Additional information: The patient is a 63-year-old male with history of chronic low back pain, GERD, coronary artery disease, status post coronary stents, and history of recurrent pancreatitis, who presents with abdominal pain that started last night and has persisted since onset. He reports both lower and upper abdominal pain, with radiation to his back. He denies fever, vomiting, or dysuria. He denies chest pain, cough, or shortness of breath. He reports history of similar symptoms many times in the past, and review of his medical records reveals previous presentations with atypical chest pain and recurrent lower back pain. He denies any recent alcohol use. He states he has no primary physician, so has not been taking his previously prescribed medications which include omeprazole, metoprolol, lisinopril, and oxycodone. Review of Systems Constitutional: denies: Fever Nose: denies: Congestion Throat: denies: Sore throat Cardiac: denies: Chest pain / pressure Respiratory: reports: Cough. denies: Dyspnea GI: reports: Abdominal Pain, Nausea. denies: Vomiting : denies: Dysuria Skin: reports: Laceration (s). denies: Rash Musculoskeletal: reports: Back pain (chronically). denies: Extremity swelling Neurologic: denies: Focal weakness, Numbness, Headache PD PAST MEDICAL HISTORY - Past Medical History Cardiovascular: Hypertension, High cholesterol, Coronary artery disease, [place] Respiratory: Sleep apnea Endocrine/Autoimmune: None GI: GERD : None HEENT: None Psych: None Musculoskeletal: Chronic back pain Derm: None - Past Surgical History Past Surgical History: Yes Ortho: Spine surgery Cardiovascular: Coronary stent - Present Medications Home Medications: Ambulatory Orders Medication Instructions Recorded Confirmed Cyclobenzaprine [Flexeril] 10 mg PO TID PRN #20 tablet 02/12/19 Hydrocodone/Acetaminophen 1 - 2 each PO Q6H PRN #14 tablet 02/12/19 [Hydrocodon-Acetaminophen 5-325] Metoprolol Succinate 50 mg PO DAILY PM #30 tab.er.24h 02/12/19 Metoprolol Succinate [Toprol Xl] 25 mg PO DAILY #30 tablet 03/26/19 Omeprazole 20 mg PO DAILY #20 capsule.dr 03/26/19 Promethazine [Phenergan] 25 mg PO Q6H PRN #10 tab 03/26/19 oxyCODONE/ACET 5/325 [Percocet 5 1 - 2 each PO BID PRN #20 tablet 03/26/19 mg/325 mg] - Allergies Allergies/Adverse Reactions: Allergies Allergy/AdvReac Type Severity Reaction Status Date / Time No Known Drug Allergies Allergy Verified 03/26/19 13:12 - Social History Does the pt smoke?: Yes Smoking Status: Current every day smoker Does the pt drink ETOH?: Yes Does the pt have substance abuse?: No - Immunizations Immunizations are current?: No Immunizations: TDAP >10years/unknown - POLST Patient has POLST: No PD ED PE NORMAL - Vitals Vital signs reviewed: Yes (normal) - General General: Alert and oriented X 3, Well developed/nourished, Other (Strong Eastern accent.) - HEENT HEENT: Atraumatic, Moist mucous membranes, Pharynx benign - Neck Neck: Supple, no meningeal sign, No adenopathy, No JVD - Cardiac Cardiac: RRR - Respiratory Respiratory: No respiratory distress, Clear bilaterally - Abdomen Abdomen: Normal bowel sounds, Soft, Non distended, Other (Diffuse tenderness to palpation, most notably in the epigastric region, as well as across the lower abdomen. No rebound tenderness.) - Back Back: No CVA TTP - Derm Derm: No rash - Extremities Extremities: No edema, No calf tenderness / cord - Neuro Neuro: Alert and oriented X 3, No motor deficit, No sensory deficit Results - Vitals Vitals: Oxygen O2 Source Room air - Labs Labs: Laboratory Tests 03/26/19 03/26/19 03/26/19 13:28 13:28 13:28 WBC 13.3 H RBC 5.53 Hgb 16.9 Hct 48.2 MCV 87.2 MCH 30.6 MCHC 35.1 RDW 13.5 Plt Count 164 MPV 10.0 Neut # (Auto) 10.5 H Lymph # (Auto) 1.5 [place] # (Auto) 0.9 Eos # (Auto) 0.1 Baso # (Auto) 0.2 H Absolute Nucleated RBC 0.00 Nucleated RBC % 0.0 Sodium 138 Potassium 3.8 Chloride 101 Carbon Dioxide 27 Anion Gap 10.0 BUN 11 Creatinine 1.0 Estimated GFR (MDRD) 75 L Glucose 95 Calcium 9.3 Total Bilirubin 2.1 H AST 24 ALT 24 Alkaline Phosphatase 69 Total Protein 7.5 Albumin 4.6 Globulin 2.9 Albumin/Globulin Ratio 1.6 Lipase 153 H Ethyl Alcohol < 5.0 - Rads (name of study) CT abd/pelvis Radiology: Prelim report reviewed, EMP read contemporaneously, See rad report (1) Fatty liver. 2) Mild colonic diverticulosis without evidence for acute diverticulitis. Normal appendix. 3) Bilateral wide necked fat-containing direct inguinal hernias appearing similar to the prior, left greater than right, the left neck measures 3.7 cm.) PD MEDICAL DECISION MAKING - ED course Complexity details: reviewed old records, reviewed results, re-evaluated patient, considered differential, d/w patient ED course: The patient's presentation is most consistent with gastritis as a cause for his abdominal pain. He does have a mildly elevated lipase at 153, and may have recurrent pancreatitis, but there is no evidence of pancreatic inflammation on CT scan of the abdomen and pelvis. There is no evidence of diverticulitis or appendicitis on CT scan. Treatment in the emergency department included administration of normal saline 1 L IV, morphine 4 mg IV, and ondansetron 4 mg IV. On repeat examination he continues to have epigastric/left upper quadrant tenderness to palpation. GI cocktail was administered, and an additional 4 mg morphine IV. This relieved the patient's pain, and repeat exam reveals a benign abdomen. He is being discharged with a prescription for omeprazole and for Phenergan, as well as metoprolol and Percocet, 20 tablets. I discussed with him the diagnosis, outpatient treatment and follow-up, as well as potentially worrisome signs or symptoms that should prompt reevaluation in the emergency department. Departure - Departure Disposition: 01 Home, Self Care Clinical Impression: Recurrent pancreatitis Gastritis Qualifiers: Gastritis type: unspecified gastritis Chronicity: acute Gastritis bleeding: without bleeding Qualified Code(s): K29.00 - Acute gastritis without bleeding Chronic back pain Qualifiers: Back pain location: low back pain Back pain laterality: bilateral Sciatica presence: without sciatica Qualified Code(s): M54.5 - Low back pain Condition: Stable Instructions: ED Gastritis, ED Pancreatitis Prescriptions: Metoprolol Succinate [Toprol Xl] 25 mg PO DAILY #30 tablet Omeprazole 20 mg PO DAILY #20 capsule. oxyCODONE/ACET 5/325 [Percocet 5 mg/325 mg] 1 - 2 each PO BID PRN #20 tablet PRN Reason: Pain Promethazine [Phenergan] 25 mg PO Q6H PRN #10 tab PRN Reason: Nausea / Vomiting Comments: Take omeprazole daily as prescribed. You can use Phenergan as prescribed if needed for nausea. Continue taking metoprolol daily as prescribed. You can use Percocet as prescribed if needed for pain. Follow-up with your primary physician as scheduled. Return to the emergency department if you develop increasing pain, persistent vomiting, or otherwise worsening symptoms. Discharge Date/Time: 03/26/19 17:45
== END 2019-03-26 17:45 | disposition home or self-care (01) ==
LOC: EDBD → ED 13:10
DX: K86.1 Other chronic pancreatitis (principal); K29.00 Acute gastritis without bleeding; G89.29 Other chronic pain; M54.5 Low back pain; I10 Essential (primary) hypertension; F17.200 Nicotine dependence, unspecified, uncomplicated
CPT/HCPCS: 36415; 51798; 74177; 80053; 83690; 85025; 96361; 96374; 96376; 99284; A9270; Q9967; 80320; 81001; 81003; 87086

== ENCOUNTER 2019-07-08 04:21 | Outpatient (CLI) | payer MEDICARE, MEDICAID | END 2019-07-08 04:22 | disposition short-term general hospital (02) | LOC: EMS 04:21 | PROVIDERS: ATTEND Surgery | DX: R07.9 Chest pain, unspecified (principal) | CPT/HCPCS: A0425; A0427 ==

== ENCOUNTER 2020-09-19 15:26 | Outpatient (CLI) | payer MEDICARE, MEDICAID | END 2020-09-19 15:27 | disposition critical access hospital (66) | LOC: EMS 15:26 | PROVIDERS: ATTEND Emergency Medicine | DX: M54.5 Low back pain (principal); R07.9 Chest pain, unspecified | CPT/HCPCS: A0425; A0427 ==

== ENCOUNTER 2020-09-19 15:49 | Inpatient (IN) | payer MEDICARE, MEDICAID ==
[2020-09-19] MEDS ORDERED: KETOROLAC 30 MG/ML VIAL IVP STA (16:14)
[2020-09-19] MEDS ORDERED: PANTOPRAZOLE 40 MG VIAL IVP STA (16:14)
[2020-09-19] MEDS ORDERED: MAG HYDROX/AL HYDROX/SIMETH 30 ML UDC PO STA (16:14)
[2020-09-19 16:23] LABS: MUDS CUTOFF CONCENTRATIONS CUTOFF CONC BELOW:
[2020-09-19 16:24] LABS: BASOPHILS # (AUTO) 0.1 10^3/uL (0.0-0.1); BASOPHILS % (AUTO) 1.1 %; EOSINOPHILS # (AUTO) 0.1 10^3/uL (0.0-0.7); EOSINOPHILS % (AUTO) 2.1 %; HCT - HEMATOCRIT 47.5 % (42.0-52.0); HGB - HEMOGLOBIN 16.5 g/dL (14.0-18.0); LYMPHOCYTES # (AUTO) 1.9 10^3/uL (1.5-3.5); LYMPHOCYTES % (AUTO) 28.4 %; MEAN CORPUSCULAR HEMOGLOBIN 30.1 pg (27.0-31.0); MEAN CORPUSCULAR HGB CONC 34.7 g/dL (32.0-36.0); MEAN CORPUSCULAR VOLUME 86.5 fL (80.0-94.0); MONOCYTES # (AUTO) 0.5 10^3/uL (0.0-1.0); MONOCYTES % (AUTO) 7.3 %; NEUTROPHILS % (AUTO) 60.6 %; PLT - PLATELET COUNT 140 10^3/uL (130-450); RED BLOOD COUNT 5.49 10^6/uL (4.70-6.10); RED CELL DISTRIBUTION WIDTH 13.2 % (12.0-15.0); WHITE BLOOD COUNT 6.5 x10^3/uL (4.8-10.8)
--- NOTE | 2020-09-19 16:29 | ED Physician Documentation ---
PD HPI CHEST PAIN - Stated complaint Stated Complaint: CP - Chief complaint Chief Complaint: Cardiac - History obtained from History obtained from: Patient - History of Present Illness Timing - onset: Chronic Timing - onset during: Rest Pain level max: 10 Pain level now: 10 Quality: Pressure, Aching, Pain Location: Substernal Radiation: No: Jaw, Neck, Back, Abdominal, Left upper extremity, Right upper extremity Improved by: Nothing Worsened by: No: Exertion, Inspiration, Eating, Movement, Palpation, Position Associated symptoms: No: Shortness of air, Diaphoresis, Nausea, Vomiting, Feeling faint / dizzy, General Weakness, Palpitations, Cough Similar symptoms before: Diagnosis Recently seen: Not recently seen Review of Systems Ten Systems: 10 systems reviewed and negative Constitutional: denies: Fever, Chills Nose: denies: Rhinorrhea / runny nose, Congestion Respiratory: denies: Cough GI: denies: Abdominal Pain, Nausea, Vomiting, Diarrhea Skin: denies: Rash Musculoskeletal: reports: Back pain (chronic and unchanged.). denies: Neck pain Neurologic: denies: Focal weakness, Numbness, Headache PD PAST MEDICAL HISTORY - Past Medical History Past Medical History: Yes Cardiovascular: Hypertension, High cholesterol, Coronary artery disease, [place] Respiratory: Sleep apnea Endocrine/Autoimmune: None GI: GERD : None HEENT: None Psych: None Musculoskeletal: Chronic back pain Derm: None - Past Surgical History Past Surgical History: Yes Ortho: Spine surgery Cardiovascular: Coronary stent - Allergies Allergies/Adverse Reactions: Allergies Allergy/AdvReac Type Severity Reaction Status Date / Time No Known Drug Allergies Allergy Verified 09/19/20 16:06 - Social History Does the pt smoke?: Yes Smoking Status: Current every day smoker Does the pt drink ETOH?: No Does the pt have substance abuse?: No - Immunizations Immunizations are current?: No Immunizations: TDAP >10years/unknown - POLST Patient has POLST: No PD ED PE NORMAL - Vitals Vital signs reviewed: Yes - General General: Alert and oriented X 3, No acute distress - HEENT HEENT: Atraumatic, PERRL, Moist mucous membranes - Neck Neck: Supple, no meningeal sign, No bony TTP - Cardiac Cardiac: RRR, Strong equal pulses - Respiratory Respiratory: No respiratory distress, Clear bilaterally - Abdomen Abdomen: Soft, Non tender, Non distended - Back Back: No CVA TTP, No spinal TTP - Derm Derm: Warm and dry - Extremities Extremities: No edema - Neuro Neuro: Alert and oriented X 3 - Psych Psych: Normal mood, Normal affect Results - Vitals Vitals: Vital Signs - 24 hr 09/19/20 09/19/20 09/19/20 15:57 16:53 18:07 Temperature 36.0 C L Heart Rate 83 85 88 Respiratory 11 L 16 14 Rate Blood Pressure 119/75 102/86 H 100/79 O2 Saturation 100 97 96 Oxygen O2 Source Room air - EKG (time done) 1553 Rate: Rate (enter#) (82) Rhythm: NSR [place]: LAD Intervals: Wide QRS Ischemia: Q waves (II, III, aVF), Non specific changes - Labs Labs: Laboratory Tests 09/19/20 09/19/20 09/19/20 16:16 16:18 16:18 WBC 6.5 RBC 5.49 Hgb 16.5 Hct 47.5 MCV 86.5 MCH 30.1 MCHC 34.7 RDW 13.2 Plt Count 140 MPV 10.0 Neut # (Auto) 4.0 Lymph # (Auto) 1.9 [place] # (Auto) 0.5 Eos # (Auto) 0.1 Baso # (Auto) 0.1 Absolute Nucleated RBC 0.00 Nucleated RBC % 0.0 VBG pH VBG pCO2 VBG pO2 VBG HCO3 VBG Total CO2 VBG O2 Saturation VBG Base Excess Sodium 129 L Potassium 4.5 Chloride 92 L Carbon Dioxide 24 Anion Gap 13.0 BUN 9 Creatinine 0.8 Estimated GFR (MDRD) 97 Glucose 620 H* Calcium 8.7 Total Bilirubin 1.1 H AST 18 ALT 15 Alkaline Phosphatase 85 Troponin I High Sens Total Protein 7.1 Albumin 4.0 Globulin 3.1 Albumin/Globulin Ratio 1.3 Lipase 344 H Urine Opiates Screen POSITIVE H Ur Oxycodone Screen NEGATIVE Urine Methadone Screen NEGATIVE Ur Propoxyphene Screen NEGATIVE Ur Barbiturates Screen NEGATIVE Ur Tricyclics Screen NEGATIVE Ur Phencyclidine Scrn NEGATIVE Ur Amphetamine Screen NEGATIVE U Methamphetamines Scrn NEGATIVE U Benzodiazepines Scrn NEGATIVE Urine Cocaine Screen NEGATIVE U Cannabinoids Screen NEGATIVE Ethyl Alcohol 169.9 Serum Ketones 09/19/20 09/19/20 09/19/20 16:18 17:06 17:13 WBC RBC Hgb Hct MCV MCH MCHC RDW Plt Count MPV Neut # (Auto) Lymph # (Auto) [place] # (Auto) Eos # (Auto) Baso # (Auto) Absolute Nucleated RBC Nucleated RBC % VBG pH 7.276 L VBG pCO2 47.2 VBG pO2 23.3 L VBG HCO3 21.5 L VBG Total CO2 22.9 L VBG O2 Saturation 49.3 L VBG Base Excess -5.6 L Sodium Potassium Chloride Carbon Dioxide Anion Gap BUN Creatinine Estimated GFR (MDRD) Glucose Calcium Total Bilirubin AST ALT Alkaline Phosphatase Troponin I High Sens 3.3 Total Protein Albumin Globulin Albumin/Globulin Ratio Lipase Urine Opiates Screen Ur Oxycodone Screen Urine Methadone Screen Ur Propoxyphene Screen Ur Barbiturates Screen Ur Tricyclics Screen Ur Phencyclidine Scrn Ur Amphetamine Screen U Methamphetamines Scrn U Benzodiazepines Scrn Urine Cocaine Screen U Cannabinoids Screen Ethyl Alcohol Serum Ketones NEGATIVE - Rads (name of study) Chest x-ray Radiology: Prelim report reviewed, EMP read contemporaneously, See rad report (No acute cardiopulmonary process demonstrated radiographically. ) PD MEDICAL DECISION MAKING - ED course Complexity details: reviewed results, re-evaluated patient, considered differential (No ST elevation [place], no aortic dissection, no PE, no tension pneumothorax, no aortic aneurysm), d/w patient ED course: 64-year-old male with recurrent alcoholic pancreatitis. He also is a new onset diabetic, blood sugar over 600, mild acidosis. No ketones. Given IV fluids, pain medication and insulin. We will admit the patient for further care. Discussed the case with Dr. Mccord, hospitalist who accepts This document was made in part using voice recognition software. While efforts are made to proofread this document, sound alike and grammatical errors may occur. Departure - Departure Disposition: 66 [facility] DC/Xfer Clinical Impression: Hyperglycemia, Metabolic acidosis due to diabetes mellitus Pancreatitis Qualifiers: Chronicity: acute Pancreatitis type: alcohol induced Acute pancreatitis complication: unspecified Qualified Code(s): K85.20 - Alcohol induced acute pancreatitis without necrosis or infection Chronic back pain Qualifiers: Back pain location: back pain in unspecified location Back pain laterality: unspecified Qualified Code(s): M54.9 - Dorsalgia, unspecified Condition: Stable
--- NOTE | 2020-09-19 16:32 | XRAY Report ---
PROCEDURE: Chest 1 View X-Ray INDICATIONS: Chest pain TECHNIQUE: One view of the chest was acquired. COMPARISON: 02/12/2019 FINDINGS: Surgical changes and devices: None. Lungs and pleura: No pleural effusions or pneumothorax. Lungs are clear. Mediastinum: Mediastinal contours appear normal. Heart size is normal. Bones and chest wall: No suspicious bony lesions. Overlying soft tissues appear unremarkable. IMPRESSION: No acute cardiopulmonary process demonstrated radiographically. Reviewed by: Abdulkadir Garcia MD on 09/19/2020 4:31 PM PDT Approved by: Abdulkadir Garcia MD on 09/19/2020 4:31 PM PDT Station ID: [id number]
[2020-09-19 16:41] LABS: AMPHETAMINE SCREEN,URINE NEGATIVE (NEGATIVE); BARBITURATE SCREEN,UR NEGATIVE (NEGATIVE); BENZODIAZEPINES SCREEN, URINE NEGATIVE (NEGATIVE); COCAINE SCREEN URINE NEGATIVE (NEGATIVE); METHADONE SCREEN, URINE NEGATIVE (NEGATIVE); METHAMPHETAMINES SCREEN, URINE NEGATIVE (NEGATIVE); OPIATE SCREEN, URINE POSITIVE (NEGATIVE); OXYCODONE SCREEN, URINE NEGATIVE (NEGATIVE); PROPOXYPHENE SCREEN, URINE NEGATIVE (NEGATIVE); THC CANNABINOID SCREEN, URINE NEGATIVE (NEGATIVE); TRICYCLIC ANTIDEPRESSANT,URINE NEGATIVE (NEGATIVE)
[2020-09-19 16:43] LABS: ALBUMIN/GLOBULIN RATIO 1.3 (1.0-2.2); BILIRUBIN,TOTAL 1.1 mg/dL (0.2-1.0); CALCIUM 8.7 mg/dL (8.5-10.3); CREATININE 0.8 mg/dL (0.6-1.2); ETOH - ETHANOL 169.9 mg/dL; POTASSIUM 4.5 mmol/L (3.5-5.0); TOTAL PROTEIN 7.1 g/dL (6.7-8.2)
[2020-09-19] MEDS ORDERED: INSULIN REGULAR HUMAN 100 UNIT/1 ML 10 ML MDV IVP STA (16:53)
[2020-09-19] MEDS ORDERED: INSULIN REGULAR HUMAN 100 UNIT/1 ML 10 ML MDV SUBQ STA (16:53)
[2020-09-19 17:23] LABS: VBG BASE EXCESS -5.6 mmol/L (-2 - +2); VBG HCO3 21.5 mmol/L (23-28); VBG OXYGEN SATURATION 49.3 % (60-80); VBG PCO2 47.2 mmHg (41-51); VBG PH 7.276 (7.31-7.41); VBG PO2 23.3 mmHg (25-47); VBG TOTAL CO2 22.9 mmol/L (24-29)
[2020-09-19] MEDS ORDERED: MORPHINE 2 MG/ML CARPUJECT IVP STA (17:33)
[2020-09-19] MEDS ORDERED: LORazepam 2 MG/ML VIAL IVP PRN (18:21)
[2020-09-19 18:51] LABS: INR 1.1 (0.8-1.2); PT - PROTHROMBIN TIME 12.1 secs (9.9-12.6)
[2020-09-19 18:59] LABS: B. PARAPERTUSSIS- RESP PCR PAN NOT DETECTED; B. PERTUSSIS- RESP PCR PANEL NOT DETECTED; C. PNEUMONIAE- RESP PCR PANEL NOT DETECTED; CORONAVIRUS 229E-RESP PCR NOT DETECTED; CORONAVIRUS HKU1-RESP PCR NOT DETECTED; CORONAVIRUS NL63-RESP PCR NOT DETECTED; CORONAVIRUS OC43-RESP PCR NOT DETECTED; HUMAN METAPNEUMOVIRUS NOT DETECTED; INFLUENZA A- RESP PCR PANEL NOT DETECTED; INFLUENZA B - RESP PCR PANEL NOT DETECTED; M. PNEUMONIAE- RESP PCR PANEL NOT DETECTED; PARAINFLUENZA VIRUS 1 NOT DETECTED; PARAINFLUENZA VIRUS 2 NOT DETECTED; PARAINFLUENZA VIRUS 3 NOT DETECTED; PARAINFLUENZA VIRUS 4 NOT DETECTED; RHINOVIRUS/ENTEROVIRUS NOT DETECTED; RSV- RESP PCR PANEL NOT DETECTED; SARS-CoV-2 -RESP PCR PANEL NOT DETECTED
[2020-09-19] MEDS ORDERED: SODIUM CHLORIDE 0.9% 1,000 ML IV ONE (19:19)
[2020-09-19] MEDS ORDERED: ONDANSETRON ODT 4 MG TABLET TL PRN (19:20)
[2020-09-19] MEDS ORDERED: SODIUM CHLORIDE FLUSH 0.9% 10 ML SYRINGE IVP PRN (19:20)
[2020-09-19] MEDS ORDERED: ONDANSETRON 4 MG/2 ML VIAL IVP PRN (19:20)
[2020-09-19] MEDS ORDERED: ACETAMINOPHEN 325 MG TABLET PO PRN (19:20)
--- NOTE | 2020-09-19 19:28 | HISTORY & PHYSICAL EXAMINATION ---
Chief Complaint - Chief Complaint Chief Complaint: Back pain and chest pain. History of Present Illness - Admitted From Admitted From:: Home - History Obtained From Records Reviewed: Yes History obtained from: Patient, Daytime hospitalist, EMR - History of Present Illness HPI Comment/Other: This is a 64-year-old male with a past medical history significant for coronary artery disease, hyperlipidemia, GERD, chronic back pain who presents today comp laining of chest pain and back pain. He states his chest pain began yesterday evening and has persisted. It is about 3/4 out of 10. He states it feels like a bubble in his chest and it radiates throughout his chest. No associated nausea or diaphoresis. He does have a history of coronary artery disease with stenting back in 2013. He has been off of all medications for more than 4 years including aspirin and statin. He states he also has heartburn which is chronic for him and this pain feels different. He was previously on a PPI for his heartburn. He states that he also has back pain which has been present since 2002 after a lumbar fusion. This was performed in [place]. He states he was on oxycodone for chronic pain but has been off of opiates for quite a few years now. He states his pain has progressively worsened over the past few months. No bladder or bowel incontinence. He does report some numbness in his bilateral lower extremities which is not new. His back pain is about an 8 out of 10. He also states that he has mild abdominal pain that is about 4 out of 10. He has no associated nausea, vomiting, diarrhea. He has been eating with out difficulty. Although his alcohol level is elevated, he denies any alcohol use and reports his last alcohol consumption was back in 2012. He tells me is a history of a DUI in 2001. He is adamant that he has not had any recent alcohol consumption whatsoever and is puzzled that his alcohol level can be elevated. He reports no dysuria, urgency, hematuria. He does endorse polydipsia but denies polyuria. He reports no prior history of diabetes to his knowledge He states that he has not been on any medication because he has no primary care provider as he has no vehicle for transportation. In the emergency department, he was found to be afebrile. Heart was in the 80s. Blood pressure was 119/75. He was not tachypneic and saturating well on room air. Labs were significant for glucose of 620. Lipase was 344. Alcohol level was 169.9. Serum ketones were negative. Urine drug screen was positive for opiates. Negative for oxycodone. Troponin was normal. Chest x-ray is unremarkable as well as EKG. Given the above findings, medicine was consulted for admission. I did discuss goals of care with the patient and he would like to be a full code. History - Past Medical History Cardiovascular: reports: Hypertension, High cholesterol, Coronary artery disease, [place] Respiratory: reports: Sleep apnea Endocrine/Autoimmune: reports: None GI: reports: GERD : reports: None HEENT: reports: None Psych: reports: None Musculoskeletal: reports: Chronic back pain Derm: reports: None MRSA Hx?: No - Past Surgical History Ortho: reports: Spine surgery Cardiovascular: reports: Coronary stent - Family & Social History Family History Comment/Other: He reports his father from lung cancer. He was a smoker. Reports no other significant family history to his knowledge. Living arrangement: At home Living Situation: With spouse/s.o. Social History Notes: He lives with his girlfriend. He has 4 adult children who live closer to [place]. He smokes about a half a pack a day and has been smoking for over 40 years. He reports no alcohol use and states his last drink was in 2012. He reports a history of a DUI in 2001. - POLST Patient has POLST: No Meds/Allgy - Allergies Allergies/Adverse Reactions: Allergies Allergy/AdvReac Type Severity Reaction Status Date / Time No Known Drug Allergies Allergy Verified 09/19/20 16:06 Review of Systems - Constitutional Constitutional: denies: Fatigue, Fever, Chills - Ears, Nose & Throat Ears, Nose & Throat: reports: Sore throat. denies: Nasal discharge, Nasal congestion - Cardiovascular Cariovascular: reports: Chest pain. denies: Exertional dyspnea, Decr. exercise tolerance - Respiratory Respiratory: denies: Cough, SOB at rest, SOB with exertion - Gastrointestinal Gastrointestinal: reports: Abdominal pain. denies: Constipation, Diarrhea, Hagen ge in bowel habits, Nausea, Vomiting - Genitourinary Genitourinary: denies: Dysuria, Frequency, Urgency, Hematuria - Musculoskeletal Musculoskeletal: reports: Back pain. denies: Muscle pain, Limited range of motion, Muscle weakness - Integumentary Integumentary: reports: Lesions, Dryness. denies: Rash - Neurological Neurological: reports: Numbness. denies: General weakness, Focal weakness - Endocrine Endocrine: reports: Polydypsia. denies: Polyuria, Polyphagia Prior Level of Functionality: He is independent with his ADLs. Exam - Vital Signs Reviewed Vital Signs: Yes Vital Signs: Vital Signs x48h Temp Pulse Resp BP Pulse Ox 09/19/20 18:55 89 12 104/76 97 09/19/20 18:07 88 14 100/79 96 09/19/20 16:53 85 16 102/86 H 97 09/19/20 15:57 36.0 C L 83 11 L 119/75 100 - Physical Exam General Appearance: positive: No acute distress, Alert Eyes Bilateral: positive: Normal inspection, Conjunctivae nml ENT: positive: ENT inspection nml Neck: positive: Nml inspection Respiratory: positive: Chest non-tender, No respiratory distress. negative: Wheezes, Rales Cardiovascular: positive: Regular rate & rhythm, No murmur. negative: Tachycardia Abdomen: positive: Nml bowel sounds, No distention, Tenderness (Diffuse tenderness most prominent in epigastric region.). negative: Guarding, Rebound Back: positive: Other (He has lumbar spine tenderness. Prior incision noted over the lumbar spine. No erythema or edema.) Skin: positive: Warm, Dry, Other Extremities: positive: Full ROM, No pedal edema Neurologic/Psychiatric: positive: Oriented x3, Motor nml. negative: Disoriented to person, Disoriented to place, Disoriented to time Conclusion/Plan - Problem List (1) Type 2 diabetes mellitus with hyperglycemia Conclusion/Plan: This is a new diagnosis for him. His blood glucose is greater than 600. Given his associated pancreatitis, we will admit him for IV hydration and start him on subcutaneous insulin. We will place him on 15 units of Lantus this evening which is about 0.2 units/kg. There is no evidence of DKA or HHS so we will hold off on IV insulin. Check A1c. Carb controlled diet. He will need outpatient follow-up with a primary care provider as well as a critical care educator. (2) Pancreatitis Conclusion/Plan: He does have epigastric pain and his lipase is elevated in the 300s. Although he denies alcohol use, his alcohol level is elevated. This is likely alcoholic pancreatitis. Fortunately, his pain appears to be quite minimal at this time. We will place him on a clear liquid diet and hydrate him with IV lactated Ringer's. We will use oral Tylenol and oxycodone as needed for pain control as well as morphine IV as needed. We will look to advance his diet over next 24 hours. If his pain becomes more severe, will consider imaging at that point in time. Qualifiers: Chronicity: acute Pancreatitis type: alcohol induced (3) Chest pain Conclusion/Plan: He is a known history of coronary artery disease and he presents with chest pain once again. His EKG does not suggest ischemia initial troponin is negative. We will trend his troponins overnight and resume aspirin and statin. We will also start him on beta-jamie if his blood pressure and heart rate can tolerate it. If his chest pain persists, he will need a stress test. Qualifiers: Chest pain type: unspecified Qualified Code(s): R07.9 - Chest pain, unspecified (4) Elevated ETOH level Conclusion/Plan: His alcohol level is elevated but he is adamant that he has not had any recent alcohol use whatsoever. He does appear to have mild pancreatitis which would be consistent with alcoholic pancreatitis. We will place him on thiamine and multivitamin. We will monitor for evidence of withdrawal. [facility] protocol. Sridhar vasques asked social work to see him to discuss his history of alcohol use further. Qualifiers: Blood alcohol level: 120-199 mg/100 ml Qualified Code(s): Y90.6 - Blood alcohol level of 120-199 mg/100 ml (5) Coronary artery disease Conclusion/Plan: He has a known history of coronary artery disease with stenting in the past. He has not been off of therapy for nearly 4 years. We will resume him on aspirin and statin. We will trend his troponins given his chest pain. He will need outpatient follow-up with her primary care provider and rounder and backer. (6) Chronic back pain Conclusion/Plan: This is chronic in nature. He reports a history of lumbar fusion back in 2002. He was previously on oxycodone for chronic pain but is currently not on any opiates or pain medications at home. Will use oral Tylenol for pain control. Will obtain a lumbar x-ray. At this point in time, no concerns for cauda equina syndrome. I have recommended outpatient follow-up with her primary care provider for consideration of pain management and physical therapy. Qualifiers: Back pain location: low back pain Back pain laterality: midline (7) Gastroesophageal reflux disease Conclusion/Plan: We will place him on oral Protonix. Qualifiers: Esophagitis presence: esophagitis presence not specified Qualified Code(s): K21.9 - Gastro-esophageal reflux disease without esophagitis - Lab Results Lab results reviewed: Yes Harsh Bones: 09/19/20 16:18 09/19/20 16:18 - Diagnostic Imaging Results Diagnostic Imaging Results: positive: Final report reviewed - EKG Results EKG Interpreted Independently: Yes EKG Comparison: Changed from prior EKG (The nonspecific intraventricular conduction delay is new.) EKG Findings: EKG shows a sinus rhythm. Q waves noted in the inferior leads. Nonspecific intraventricular conduction delay. Core Measures - Anticipated LOS I expect patient to be DC'd or transferred within 96 hours.: Yes - Issues Hospital Issues and Management Plan: 64-year-old male with history of coronary artery disease who is no longer on any medications presents with multiple complaints including chest pain, chronic back pain, abdominal pain. Found to have mild pancreatitis likely due to alcohol use. Will rule out ACS with trending of troponins. IV fluids and diet as tolerated. Also found to be newly diabetic with a blood glucose greater than 600. He will be started on insulin. - DVT/VTE - Prophylaxis VTE/DVT Device ordered at admit?: Yes VTE/DVT Prophylaxis med ordered at admit?: Yes
[2020-09-19 19:35] LABS: BILIRUBIN,URINE NEGATIVE (NEGATIVE); GLUCOSE, URINE (UA) >=1000 mg/dL (NEGATIVE); KETONES,URINE (UA) NEGATIVE (NEGATIVE); LEUKOCYTE ESTERASE, URINE NEGATIVE (NEGATIVE); NITRITE,URINE NEGATIVE (NEGATIVE); OCCULT BLOOD,URINE NEGATIVE (NEGATIVE); PH,URINE 5.5 PH (5.0-7.5); PROTEIN,URINE NEGATIVE (NEGATIVE); UROBILINOGEN,URINE 0.2 (NORMAL) E.U./dL (NORMAL)
[2020-09-19 19:57] LABS: BACTERIA,URINE None Seen /HPF (None Seen); CLARITY,URINE CLEAR (CLEAR); RBC,URINE None Seen /HPF (0-5); SQUAMOUS EPITHELIAL CELL,UR RARE Squamous (<= Few); WBC,URINE 0-3 /HPF (0-3)
[2020-09-19] MEDS ORDERED: KETOROLAC 15 MG/ML VIAL IVP PRN (20:10)
[2020-09-19] MEDS ORDERED: THIAMINE 100 MG TABLET PO STA (20:25)
--- NOTE | 2020-09-19 20:44 | XRAY Report ---
PROCEDURE: Lumbar Spine 2 View INDICATIONS: Back pain. TECHNIQUE: 2 views of the lumbar spine were acquired. COMPARISON: MRI lumbar spine 11/05/2013. FINDINGS: Bones: 5 [id number] vertebrae are present. There is normal bony alignment. Moderate to severe disc space narrowing is present at L4-5, L5-S1. Severe foraminal narrowing is present at L5-S1, minim al L4-5. No vertebral body compression fractures. No suspicious bony lesions. Soft tissues: Overlying bowel gas pattern is normal. No suspicious soft tissue calcifications. IMPRESSION: Prominent degenerative changes at L4-5 and L5-S1. Reviewed by: Simona Ponce MD on 09/19/2020 8:43 PM PDT Approved by: Simona Ponce MD on 09/19/2020 8:43 PM PDT Station ID: [id number]
[2020-09-19] MEDS: INSULIN ASPART 300 UNIT/3 ML PEN SUBQ SCH (21:31)
[2020-09-19] MEDS: INSULIN GLARGINE 300 UNIT/3 ML PEN SUBQ SCH (21:32)
[2020-09-19] MEDS: ATORVASTATIN 40 MG TABLET PO SCH (21:36)
[2020-09-19] MEDS: METOPROLOL TARTRATE 25 MG TABLET PO SCH (21:50)
[2020-09-19] MEDS: LACTATED RINGERS 1,000 ML IV SCH (21:50)
[2020-09-19] MEDS ORDERED: MORPHINE 2 MG/ML CARPUJECT IVP PRN (23:51)
[2020-09-20] MEDS: oxyCODONE 5 MG TABLET PO PRN ×6 (00:08→21:29)
[2020-09-20] MEDS: SODIUM CHLORIDE FLUSH 0.9% 10 ML SYRINGE IVP SCH ×3 (00:11→18:20)
[2020-09-20] MEDS: LACTATED RINGERS 1,000 ML IV SCH ×3 (04:51→19:10)
[2020-09-20] MEDS: PANTOPRAZOLE 40 MG TABLET PO SCH (06:40)
[2020-09-20 07:41] LABS: BUN - BLOOD UREA NITROGEN 13 mg/dL (6-20); CALCIUM 8.2 mg/dL (8.5-10.3); CARBON DIOXIDE - CO2 27 mmol/L (21-32); CHLORIDE 101 mmol/L (101-111); CHOL/HDL RATIO 7.5 (<5.0); CHOLESTEROL 217 mg/dL; CREATININE 0.7 mg/dL (0.6-1.2); GFR - MDRD 114 (>89); GLUCOSE 249 mg/dL (70-100); HDL CHOLESTEROL 29 mg/dL; LDL CHOLESTEROL,CALCULATED 124 mg/dL; LDL/HDL RATIO 4.3 (<3.6); PHOSPHORUS 2.7 mg/dL (2.5-4.6); POTASSIUM 4.3 mmol/L (3.5-5.0); SODIUM 133 mmol/L (135-145); TRIGLYCERIDES 318 mg/dL; VLDL CHOLESTEROL 64 mg/dL
[2020-09-20 07:51] LABS: BASOPHILS # (AUTO) 0.1 10^3/uL (0.0-0.1); BASOPHILS % (AUTO) 1.1 %; EOSINOPHILS # (AUTO) 0.3 10^3/uL (0.0-0.7); EOSINOPHILS % (AUTO) 4.4 %; HCT - HEMATOCRIT 44.1 % (42.0-52.0); HGB - HEMOGLOBIN 14.9 g/dL (14.0-18.0); LYMPHOCYTES # (AUTO) 1.9 10^3/uL (1.5-3.5); LYMPHOCYTES % (AUTO) 25.1 %; MEAN CORPUSCULAR HEMOGLOBIN 29.2 pg (27.0-31.0); MEAN CORPUSCULAR HGB CONC 33.8 g/dL (32.0-36.0); MEAN CORPUSCULAR VOLUME 86.5 fL (80.0-94.0); MONOCYTES # (AUTO) 0.7 10^3/uL (0.0-1.0); MONOCYTES % (AUTO) 9.8 %; NEUTROPHILS # (AUTO) 4.5 10^3/uL (1.5-6.6); NEUTROPHILS % (AUTO) 59.2 %; PLT - PLATELET COUNT 131 10^3/uL (130-450); RED CELL DISTRIBUTION WIDTH 13.3 % (12.0-15.0); WHITE BLOOD COUNT 7.5 x10^3/uL (4.8-10.8)
[2020-09-20 08:02] LABS: ESTIMATED AVERAGE GLUCOSE 309 mg/dL (70-100); HEMOGLOBIN A1c% 12.4 % (4.27-6.07)
[2020-09-20] MEDS: INSULIN ASPART 300 UNIT/3 ML PEN SUBQ SCH ×5 (08:58→21:33)
[2020-09-20] MEDS: THIAMINE 100 MG TABLET PO SCH (09:00)
[2020-09-20] MEDS: MULTIVITAMIN TABLET PO SCH (09:00)
[2020-09-20] MEDS ORDERED: MULTIVITAMIN 10 ML, THIAMINE INJ 100 MG, FOLIC ACID INJ 1 MG in SODIUM CHLORIDE 0.9% 1,... IV SCH (09:00)
[2020-09-20] MEDS: ASPIRIN EC 81 MG TABLET PO SCH (09:00)
[2020-09-20] MEDS: METOPROLOL TARTRATE 25 MG TABLET PO SCH ×2 (09:00→21:30)
[2020-09-20] MEDS: ENOXAPARIN 40 MG/0.4 ML SYRINGE SUBQ SCH (09:01)
[2020-09-20] MEDS: ACETAMINOPHEN 500 MG TABLET PO PRN ×2 (09:01→13:27)
[2020-09-20] MEDS ORDERED: LIDOCAINE PATCH 5% TOP PRN (12:18)
--- NOTE | 2020-09-20 12:45 | PROVIDER PROGRESS NOTE ---
Assessment/Plan - Problem List (1) Newly diagnosed diabetes Assessment/Plan: The serum glucose was over 600. He did have mild acidosis with VBG showing pH of 7.27 but there were no ketones. He reports "eating 2 candy bars per day". The A1c was checked and is extremely high at 12.4 indicating that he now has full-blown diabetes. I discussed this with the patient. He is getting sliding scale insulin plus empiric Lantus insulin doses. He is interested in diabetic education. He denies any alcohol intake. We will order diabetic education. As his diet is being advanced (for the pancreatitis), will begin a carb controlled diet. (2) Hyponatremia Assessment/Plan: This is likely pseudohyponatremia from his very high glucose levels. Treating his elevated serum glucose levels with Insulin. Continue with IV saline as is hydration. Check BMP daily (3) Pancreatitis Qualifiers: Chronicity: acute Assessment/Plan: The patient admits he has had 3 days of vague midepigastric pain. He has not had nausea. He is able to tolerate clear liquid diet and was advanced to pured food today with no worsening of pain. Presumably this was of alcoholic etiology however he vehemently denies using alcohol. He admits he used some cough syrup. He does not think someone "slipped him" some alcohol. He has not drank alcohol for 11 years, he said. The Lipase has improved from 344 to 93. Continue iv hydration, pain meds prn, advance diet as tolerated. (4) Elevated ETOH level Qualifiers: Blood alcohol level: 120-199 mg/100 ml Qualified Code(s): Y90.6 - Blood alcohol level of 120-199 mg/100 ml Assessment/Plan: He vehemently denies any alcohol use for 11 years. He does not think anyone slipped him some alcohol. There is been possibly some minimal cough medicine use. He reports "eating 2 candy bars per day" and thinks may be that could explain the numbers. His exam shows no tremor, no nystagmus, he is not poorly kempt like a person who uses heavy alcohol. We will recheck his serum alcohol level. He was empirically started on CIWA protocol yesterday, will start Librium tonight if there is continued suspicion of alcohol intake. A banana bag was started at admission but has been changed to IV normal saline plus oral thiamine and oral multivitamin daily. consult requested. (5) Coronary artery disease Assessment/Plan: Patient describes having had prior heart attacks. He ran out of his medicines and also has not seen a doctor in about 2 to 3 years therefore "nothing was refilled". He has been restarted on daily aspirin, beta-jamie and a statin while here. (6) Hypertriglyceridemia Assessment/Plan: Is very commonly seen in a diabetic Will start fenofibrate. (7) Tobacco user Assessment/Plan: He smokes 1/3 pack/day. He declined needing any nicotine patch. (8) Chronic back pain Qualifiers: Back pain location: low back pain Back pain laterality: midline Assessment/Plan: Will order a lidocaine patch to put on over the spot that is most painful. - Current Meds Current Meds: Current Medications Generic Name Dose Route Start Last Admin Trade Name Freq PRN Reason Stop Dose Admin Acetaminophen 1,000 mg 09/19/20 20:14 09/20/20 09:01 Acetaminophen 500 Mg Tablet PO 500 mg TID PRN Administration Pain or Fever > 38C (100.4F) Aspirin 81 mg 09/20/20 09:00 09/20/20 09:00 Aspirin Ec 81 Mg Tablet PO 81 mg DAILY HÉCTOR Administration Atorvastatin Calcium 40 mg 09/19/20 21:00 09/19/20 21:36 Atorvastatin 40 Mg Tablet PO 40 mg QPM HÉCTOR Administration Enoxaparin Sodium 40 mg 09/20/20 09:00 09/20/20 09:01 Enoxaparin 40 Mg/0.4 Ml Syringe SUBQ 40 mg DAILY HÉCTOR Administration Lactated Ringer's 1,000 mls @ 150 mls/hr 09/19/20 20:00 09/20/20 11:52 Lr IV 150 mls/hr .Q6H40M HÉCTOR Administration Insulin Aspart 1 - 5 unit 09/19/20 21:00 09/20/20 11:53 Insulin Aspart 300 Unit/3 Ml Pen SUBQ 3 unit 0800,1200,1700,2100 HÉCTOR Administration Protocol Insulin Glargine 15 unit 09/19/20 21:00 09/19/20 21:32 Insulin Glargine 300 Unit/3 Ml Pen SUBQ 15 unit QPM HÉCTOR Administration Ketorolac Tromethamine 15 mg 09/19/20 20:10 09/19/20 21:28 Ketorolac 15 Mg/Ml Vial IVP 09/24/20 20:09 15 mg Q6HR PRN Administration PAIN Metoprolol Tartrate 25 mg 09/19/20 21:00 09/20/20 09:00 Metoprolol Tartrate 25 Mg Tablet PO 25 mg BID HÉCTOR Administration Multivitamins 1 tab 09/20/20 08:00 09/20/20 09:00 Multivitamin Tablet PO 1 tab DAILYWM HÉCTOR Administration Ondansetron HCl 4 mg 09/19/20 19:20 09/20/20 08:58 Ondansetron 4 Mg/2 Ml Vial IVP 4 mg Q6HR PRN Administration Nausea / Vomiting Oxycodone HCl 5 mg 09/19/20 23:50 09/20/20 09:01 Oxycodone 5 Mg Tablet PO 5 mg Q4HR PRN Administration PAIN Pantoprazole Sodium 40 mg 09/20/20 07:00 09/20/20 06:40 Pantoprazole 40 Mg Tablet PO 40 mg QDAC HÉCTOR Administration Sodium Chloride 10 ml 09/20/20 01:00 09/20/20 09:01 Sodium Chloride Flush 0.9% 10 Ml Syringe IVP Not Given 0100,0900,1700 HÉCTOR Thiamine HCl 100 mg 09/20/20 09:00 09/20/20 09:00 Thiamine 100 Mg Tablet PO 100 mg DAILY HÉCTOR Administration - Lab Result Fish Bone Diagrams: 09/20/20 07:10 09/20/20 07:10 - Additional Planning My Orders: My Active Orders 09/19/20 18:19 Vital Signs [RC] Q4HR 09/19/20 18:20 Blood Glucose Checks - Eating [RC] 0800,1200,1700,2100 Initiate Hypoglycemia Protocol [RC] .protocol 09/19/20 18:21 CIWA - AR Score Card [RC] Q4HR LORazepam INJ [Ativan Inj (Vial)] 2 mg IVP Q30M PRN 09/19/20 21:00 Insulin Aspart [NovoLOG] 1 - 5 unit SUBQ 0800,1200,1700,2100 09/20/20 Lunch Dysphagia Puree Diet [DIET] 09/20/20 12:18 Lidocaine Patch 5% [Lidoderm Patch] 1 patch TOP DAILY PRN 09/20/20 12:19 Shower [RC] PRN 09/20/20 Dinner DIET [Soft Mechanical Diet] [DIET] 09/20/20 21:00 [email or web address] [Librium] 25 mg PO BID Subjective - Subjective Patient Reports: Feeling Better, Resting Comfortably Objective Vital Signs: Vital Signs - 24 hr 09/19/20 09/19/20 09/19/20 15:57 16:53 18:07 Temperature 36.0 C L Heart Rate 83 85 88 Heart Rate [ Brachial] Respiratory 11 L 16 14 Rate Blood Pressure 119/75 102/86 H 100/79 Blood Pressure [Right Brachial artery] O2 Saturation 100 97 96 09/19/20 09/19/20 09/19/20 18:55 19:41 21:50 Temperature 36.4 C L Heart Rate 89 Heart Rate [ 87 Brachial] Respiratory 12 18 Rate Blood Pressure 104/76 113/67 Blood Pressure 119/77 [Right Brachial artery] O2 Saturation 97 99 09/20/20 09/20/20 09/20/20 00:00 04:30 07:20 Temperature 36.4 C L 36.5 C Heart Rate Heart Rate [ 70 66 54 L Brachial] Respiratory 18 20 18 Rate Blood Pressure Blood Pressure 122/77 110/68 120/70 [Right Brachial artery] O2 Saturation 99 99 95 09/20/20 09/20/20 09:00 11:48 Temperature 36.5 C Heart Rate Heart Rate [ 54 L Brachial] Respiratory 17 Rate Blood Pressure 122/76 Blood Pressure 127/72 [Right Brachial artery] O2 Saturation 95 Oxygen O2 Source Room air I&O (Last 24 Hrs): Intake and Output Totals x24h 09/18/20 09/19/20 09/20/20 23:59 23:59 23:59 Intake Total 1150 2480 Output Total 900 Balance 1150 1580 General: Alert, Oriented x3 HEENT: Mucous membr. moist/pink Neck: Supple, No JVD Neuro: Alert, Non Focal Cardiovascular: Regular rate, No murmurs Respiratory: No respiratory distress, Breath sounds nml Abdomen: Normal bowel sounds, Soft, No tenderness (no guarding) Extremities: No clubbing, No edema - Results Results: Laboratory Results WBC 7.5 x10^3/uL (4.8-10.8) 09/20/20 07:10 RBC 5.10 10^6/uL (4.70-6.10) 09/20/20 07:10 Hgb 14.9 g/dL (14.0-18.0) 09/20/20 07:10 Hct 44.1 % (42.0-52.0) 09/20/20 07:10 MCV 86.5 fL (80.0-94.0) 09/20/20 07:10 MCH 29.2 pg (27.0-31.0) 09/20/20 07:10 MCHC 33.8 g/dL (32.0-36.0) 09/20/20 07:10 RDW 13.3 % (12.0-15.0) 09/20/20 07:10 Plt Count 131 10^3/uL (130-450) 09/20/20 07:10 MPV 10.0 fL (7.4-11.4) 09/20/20 07:10 Neut # (Auto) 4.5 10^3/uL (1.5-6.6) 09/20/20 07:10 Lymph # (Auto) 1.9 10^3/uL (1.5-3.5) 09/20/20 07:10 [place] # (Auto) 0.7 10^3/uL (0.0-1.0) 09/20/20 07:10 Eos # (Auto) 0.3 10^3/uL (0.0-0.7) 09/20/20 07:10 Baso # (Auto) 0.1 10^3/uL (0.0-0.1) 09/20/20 07:10 Absolute Nucleated RBC 0.00 x10^3/uL 09/20/20 07:10 Nucleated RBC % 0.0 /100WBC 09/20/20 07:10 PT 12.1 secs (9.9-12.6) 09/19/20 18:40 INR 1.1 (0.8-1.2) 09/19/20 18:40 VBG pH 7.276 (7.31-7.41) L 09/19/20 17:13 VBG pCO2 47.2 mmHg (41-51) 09/19/20 17:13 VBG pO2 23.3 mmHg (25-47) L 09/19/20 17:13 VBG HCO3 21.5 mmol/L (23-28) L 09/19/20 17:13 VBG Total CO2 22.9 mmol/L (24-29) L 09/19/20 17:13 VBG O2 Saturation 49.3 % (60-80) L 09/19/20 17:13 VBG Base Excess -5.6 mmol/L (-2 - +2) L 09/19/20 17:13 Sodium 133 mmol/L (135-145) L 09/20/20 07:10 Potassium 4.3 mmol/L (3.5-5.0) 09/20/20 07:10 Chloride 101 mmol/L (101-111) 09/20/20 07:10 Carbon Dioxide 27 mmol/L (21-32) 09/20/20 07:10 Anion Gap 5.0 (6-13) L 09/20/20 07:10 BUN 13 mg/dL (6-20) 09/20/20 07:10 Creatinine 0.7 mg/dL (0.6-1.2) 09/20/20 07:10 Estimated GFR (MDRD) 114 (>89) 09/20/20 07:10 Glucose 249 mg/dL (70-100) H 09/20/20 07:10 Estimat Average Glucose 309 mg/dL (70-100) H 09/20/20 07:10 Hemoglobin A1c % 12.4 % (4.27-6.07) H 09/20/20 07:10 Calcium 8.2 mg/dL (8.5-10.3) L 09/20/20 07:10 Phosphorus 2.7 mg/dL (2.5-4.6) 09/20/20 07:10 Magnesium 2.0 mg/dL (1.7-2.8) 09/20/20 07:10 Total Bilirubin 1.1 mg/dL (0.2-1.0) H 09/19/20 16:18 AST 18 IU/L (10-42) 09/19/20 16:18 ALT 15 IU/L (10-60) 09/19/20 16:18 Alkaline Phosphatase 85 IU/L (42-121) 09/19/20 16:18 Troponin I High Sens 4.3 ng/L (2.3-19.7) 09/20/20 07:10 Total Protein 7.1 g/dL (6.7-8.2) 09/19/20 16:18 Albumin 4.0 g/dL (3.2-5.5) 09/19/20 16:18 Globulin 3.1 g/dL (2.1-4.2) 09/19/20 16:18 Albumin/Globulin Ratio 1.3 (1.0-2.2) 09/19/20 16:18 Triglycerides 318 mg/dL (-149) H 09/20/20 07:10 Cholesterol 217 mg/dL (-199) H 09/20/20 07:10 LDL Cholesterol, Calc 124 mg/dL (-129) 09/20/20 07:10 VLDL Cholesterol 64 mg/dL 09/20/20 07:10 HDL Cholesterol 29 mg/dL (60-) L 09/20/20 07:10 LDL/HDL Ratio 4.3 (<3.6) 09/20/20 07:10 Cholesterol/HDL Ratio 7.5 (<5.0) 09/20/20 07:10 Lipase 93 U/L (22-51) H 09/20/20 07:10 Urine Color YELLOW 09/19/20 16:16 Urine Clarity CLEAR (CLEAR) 09/19/20 16:16 Urine pH 5.5 PH (5.0-7.5) 09/19/20 16:16 Ur Specific [place] <=1.005 (1.002-1.030) 09/19/20 16:16 Urine Protein NEGATIVE mg/dL (NEGATIVE) 09/19/20 16:16 Urine Glucose (UA) >=1000 mg/dL (NEGATIVE) H 09/19/20 16:16 Urine Ketones NEGATIVE mg/dL (NEGATIVE) 09/19/20 16:16 Urine Occult Blood NEGATIVE (NEGATIVE) 09/19/20 16:16 Urine Nitrite NEGATIVE (NEGATIVE) 09/19/20 16:16 Urine Bilirubin NEGATIVE (NEGATIVE) 09/19/20 16:16 Urine Urobilinogen 0.2 (NORMAL) E.U./dL (NORMAL) 09/19/20 16:16 Ur Leukocyte Esterase NEGATIVE (NEGATIVE) 09/19/20 16:16 Urine RBC None Seen /HPF (0-5) 09/19/20 16:16 Urine WBC 0-3 /HPF (0-3) 09/19/20 16:16 Ur Squamous Epith Cells RARE Squamous (<= Few) 09/19/20 16:16 Urine Bacteria None Seen /HPF (None Seen) 09/19/20 16:16 Urine Culture Comments NOT INDICATED 09/19/20 16:16 Nasal Adenovirus (PCR) NOT DETECTED 09/19/20 17:45 Nasal B. parapertussis DNA (PCR) NOT DETECTED 09/19/20 17:45 Nasal Coronavir 229E PCR NOT DETECTED 09/19/20 17:45 Nasal Coronavir HKU1 PCR NOT DETECTED 09/19/20 17:45 Nasal Coronavir NL63 PCR NOT DETECTED 09/19/20 17:45 Nasal Coronavir OC43 PCR NOT DETECTED 09/19/20 17:45 Nasal Enterovir/Rhinovir PCR NOT DETECTED 09/19/20 17:45 Nasal Influenza B PCR NOT DETECTED 09/19/20 17:45 Nasal Influenza A PCR NOT DETECTED 09/19/20 17:45 Nasal Parainfluen 1 PCR NOT DETECTED 09/19/20 17:45 Nasal Parainfluen 2 PCR NOT DETECTED 09/19/20 17:45 Nasal Parainfluen 3 PCR NOT DETECTED 09/19/20 17:45 Nasal Parainfluen 4 PCR NOT DETECTED 09/19/20 17:45 Nasal RSV (PCR) NOT DETECTED 09/19/20 17:45 Nasal B.pertussis DNA PCR NOT DETECTED 09/19/20 17:45 Nasal C.pneumoniae (PCR) NOT DETECTED 09/19/20 17:45 Roger Human Metapneumo PCR NOT DETECTED 09/19/20 17:45 Nasal M.pneumoniae (PCR) NOT DETECTED 09/19/20 17:45 Nasal SARS-CoV-2 (PCR) NOT DETECTED 09/19/20 17:45 Urine Opiates Screen POSITIVE (NEGATIVE) H 09/19/20 16:16 Ur Oxycodone Screen NEGATIVE (NEGATIVE) 09/19/20 16:16 Urine Methadone Screen NEGATIVE (NEGATIVE) 09/19/20 16:16 Ur Propoxyphene Screen NEGATIVE (NEGATIVE) 09/19/20 16:16 Ur Barbiturates Screen NEGATIVE (NEGATIVE) 09/19/20 16:16 Ur Tricyclics Screen NEGATIVE (NEGATIVE) 09/19/20 16:16 Ur Phencyclidine Scrn NEGATIVE (NEGATIVE) 09/19/20 16:16 Ur Amphetamine Screen NEGATIVE (NEGATIVE) 09/19/20 16:16 U Methamphetamines Scrn NEGATIVE (NEGATIVE) 09/19/20 16:16 U Benzodiazepines Scrn NEGATIVE (NEGATIVE) 09/19/20 16:16 Urine Cocaine Screen NEGATIVE (NEGATIVE) 09/19/20 16:16 U Cannabinoids Screen NEGATIVE (NEGATIVE) 09/19/20 16:16 Ethyl Alcohol 169.9 mg/dL 09/19/20 16:18 Serum Ketones NEGATIVE (NEGATIVE) 09/19/20 17:06
[2020-09-20] MEDS ORDERED: chlordiazePOXIDE 25 MG CAPSULE PO SCH (21:00)
[2020-09-20] MEDS: INSULIN GLARGINE 300 UNIT/3 ML PEN SUBQ SCH (21:25)
[2020-09-20] MEDS: ATORVASTATIN 40 MG TABLET PO SCH (21:30)
[2020-09-21] MEDS: SODIUM CHLORIDE FLUSH 0.9% 10 ML SYRINGE IVP SCH ×3 (01:14→16:21)
[2020-09-21] MEDS: oxyCODONE 5 MG TABLET PO PRN ×6 (01:26→23:00)
[2020-09-21] MEDS: LACTATED RINGERS 1,000 ML IV SCH ×3 (01:26→23:00)
[2020-09-21] MEDS: PANTOPRAZOLE 40 MG TABLET PO SCH (06:10)
[2020-09-21 07:27] LABS: BASOPHILS # (AUTO) 0.1 10^3/uL (0.0-0.1); BASOPHILS % (AUTO) 0.8 %; EOSINOPHILS # (AUTO) 0.2 10^3/uL (0.0-0.7); EOSINOPHILS % (AUTO) 3.6 %; HCT - HEMATOCRIT 41.9 % (42.0-52.0); LYMPHOCYTES # (AUTO) 1.7 10^3/uL (1.5-3.5); LYMPHOCYTES % (AUTO) 26.5 %; MEAN CORPUSCULAR HGB CONC 33.4 g/dL (32.0-36.0); MEAN CORPUSCULAR VOLUME 86.9 fL (80.0-94.0); MONOCYTES # (AUTO) 0.6 10^3/uL (0.0-1.0); MONOCYTES % (AUTO) 9.9 %; NEUTROPHILS # (AUTO) 3.8 10^3/uL (1.5-6.6); NEUTROPHILS % (AUTO) 58.9 %; PLT - PLATELET COUNT 81 10^3/uL (130-450); RED BLOOD COUNT 4.82 10^6/uL (4.70-6.10); RED CELL DISTRIBUTION WIDTH 13.3 % (12.0-15.0); WHITE BLOOD COUNT 6.4 x10^3/uL (4.8-10.8)
[2020-09-21 07:42] LABS: CALCIUM 8.6 mg/dL (8.5-10.3); CREATININE 0.7 mg/dL (0.6-1.2); MAGNESIUM 1.8 mg/dL (1.7-2.8); PHOSPHORUS 2.6 mg/dL (2.5-4.6); POTASSIUM 3.9 mmol/L (3.5-5.0)
[2020-09-21] MEDS: INSULIN ASPART 300 UNIT/3 ML PEN SUBQ SCH ×4 (08:18→20:59)
[2020-09-21] MEDS: ASPIRIN EC 81 MG TABLET PO SCH (08:23)
[2020-09-21] MEDS: METOPROLOL TARTRATE 25 MG TABLET PO SCH ×2 (08:23→21:00)
[2020-09-21] MEDS: FENOFIBRATE 48 MG TABLET PO SCH (08:24)
[2020-09-21] MEDS: THIAMINE 100 MG TABLET PO SCH (08:24)
[2020-09-21] MEDS: ENOXAPARIN 40 MG/0.4 ML SYRINGE SUBQ SCH (08:24)
[2020-09-21] MEDS: MULTIVITAMIN TABLET PO SCH (08:24)
--- NOTE | 2020-09-21 10:02 | PROVIDER PROGRESS NOTE ---
Assessment/Plan - Problem List (1) Newly diagnosed diabetes Assessment/Plan: Will start oral Metformin 500 twice daily empirically. Continue with Lantus and sliding scale insulin for now. Begin diabetic teaching by his RN and also tomorrow with the diabetic educational programming director for [facility] (today is Tuesday, they are here Tuesday through Tuesday). missile tracking technician to help him establish with a new PCP, who will need to manage his diabetes going forward. (2) Pancreatitis Qualifiers: Chronicity: acute Assessment/Plan: Lipase is now improved into the normal range of 42. His epigastric pain has improved. He did not have hypertriglyceridemia as the cause of the pancreatitis. He also is not an alcoholic as the cause of the pancreatitis. The serum alcohol level is felt to be a lab error. (3) Elevated ETOH level Qualifiers: Blood alcohol level: 120-199 mg/100 ml Qualified Code(s): Y90.6 - Blood alcohol level of 120-199 mg/100 ml Assessment/Plan: This patient vehemently denied any alcohol intake for 11 years (since he had a DUI remotely and stopped alcohol abuse yeaqqrs ago, he said). He also denied that anybody may have slipped him some alcohol. When he answers, he appears to be truthful, has good eye contact. Social Work also got information that there is no alcohol abuse currently. There have been no signs of alcohol withdrawal by the [facility] protocol. Empiric oral Librium was never started. His serum blood level containing alcohol also was positive for opiates and this man was on no medications with narcotics, therefore the entire toxicology result is felt to be a lab error. (4) Coronary artery disease Assessment/Plan: His EKG shows inferior Q waves. He has not seen a doctor in about 2 years. He said all his (cardiac) medications ran out. No indication for getting an Echo at this time. A Beta-jamie, aspirin and statin have been started since admission. Will adjust the doses for ease of administration. (5) Hypertriglyceridemia Assessment/Plan: He does not have excessive triglyceride levels over 500 to suggest that was the cause of the elevated lipase/pancreatitis. The triglyceride elevation is in the range of a diabetic. Fenofibrate has been started (6) Tobacco user Assessment/Plan: Admits to 1/3 pack/day cigarette use. He declined needing a nicotine patch wh ile here (7) Chronic back pain Qualifiers: Back pain location: low back pain Back pain laterality: midline Assessment/Plan: The oxycodone helps him, the lidocaine patch is not helping. (8) Hyponatremia Assessment/Plan: Resolved, with iv fluids and as the serum glucose was more controlled. - Current Meds Current Meds: Current Medications Generic Name Dose Route Start Last Admin Trade Name Freq PRN Reason Stop Dose Admin Acetaminophen 1,000 mg 09/19/20 20:14 09/20/20 13:27 Acetaminophen 500 Mg Tablet PO 500 mg TID PRN Administration Pain or Fever > 38C (100.4F) Aspirin 81 mg 09/20/20 09:00 09/21/20 08:23 Aspirin Ec 81 Mg Tablet PO 81 mg DAILY HÉCTOR Administration Atorvastatin Calcium 40 mg 09/19/20 21:00 09/20/20 21:30 Atorvastatin 40 Mg Tablet PO 40 mg QPM HÉCTOR Administration Enoxaparin Sodium 40 mg 09/20/20 09:00 09/21/20 08:24 Enoxaparin 40 Mg/0.4 Ml Syringe SUBQ 40 mg DAILY HÉCTOR Administration Fenofibrate 144 mg 09/21/20 09:00 09/21/20 08:24 Fenofibrate 48 Mg Tablet PO 144 mg DAILY HÉCTOR Administration Lactated Ringer's 1,000 mls @ 60 mls/hr 09/21/20 07:52 09/21/20 08:22 Lr IV 09/22/20 06:00 60 mls/hr .[id number] HÉCTOR Administration Insulin Aspart 2 - 10 unit 09/20/20 21:00 09/21/20 08:18 Insulin Aspart 300 Unit/3 Ml Pen SUBQ 2 unit 0800,1200,1700,2100 HÉCTOR Administration Protocol Insulin Glargine 15 unit 09/19/20 21:00 09/20/20 21:25 Insulin Glargine 300 Unit/3 Ml Pen SUBQ 15 unit QPM HÉCTOR Administration Ketorolac Tromethamine 15 mg 09/19/20 20:10 09/19/20 21:28 Ketorolac 15 Mg/Ml Vial IVP 09/24/20 20:09 15 mg Q6HR PRN Administration PAIN Lidocaine 1 patch 09/20/20 12:18 09/20/20 12:40 Lidocaine Patch 5% TOP 1 patch DAILY PRN Administration PAIN Metoprolol Tartrate 25 mg 09/19/20 21:00 09/21/20 08:23 Metoprolol Tartrate 25 Mg Tablet PO 09/21/20 23:55 25 mg BID HÉCTOR Administration Multivitamins 1 tab 09/20/20 08:00 09/21/20 08:24 Multivitamin Tablet PO 1 tab DAILYWM HÉCTOR Administration Ondansetron HCl 4 mg 09/19/20 19:20 09/20/20 08:58 Ondansetron 4 Mg/2 Ml Vial IVP 4 mg Q6HR PRN Administration Nausea / Vomiting Oxycodone HCl 5 mg 09/19/20 23:50 09/21/20 06:10 Oxycodone 5 Mg Tablet PO 5 mg Q4HR PRN Administration PAIN Pantoprazole Sodium 40 mg 09/20/20 07:00 09/21/20 06:10 Pantoprazole 40 Mg Tablet PO 40 mg QDAC HÉCTOR Administration Sodium Chloride 10 ml 09/20/20 01:00 09/21/20 08:23 Sodium Chloride Flush 0.9% 10 Ml Syringe IVP Not Given 0100,0900,1700 HÉCTOR Thiamine HCl 100 mg 09/20/20 09:00 09/21/20 08:24 Thiamine 100 Mg Tablet PO 100 mg DAILY HÉCTOR Administration - Lab Result Fish Bone Diagrams: 09/21/20 07:08 09/21/20 07:08 - Additional Planning My Orders: My Active Orders 09/20/20 12:18 Lidocaine Patch 5% [Lidoderm Patch] 1 patch TOP DAILY PRN 09/20/20 12:19 Shower [RC] PRN 09/20/20 Dinner DIET [Soft Mechanical Diet] [DIET] 09/20/20 21:00 Insulin Aspart [NovoLOG] 2 - 10 unit SUBQ 0800,1200,1700,2100 09/21/20 Diabetes Outpatient Education MAC [MAC] Routine 09/21/20 07:52 Miscellaenous Nursing Order [RC] QSHIFT Lactated Ringers [Lr] 1,000 ml IV 60 mls/hr 09/21/20 07:53 Diabetic Education [RC] ONCE 09/21/20 09:00 Fenofibrate [Tricor] 144 mg PO DAILY 09/21/20 Lunch Carb-controlled Diet [DIET] 09/21/20 17:00 metFORMIN [Glucophage] 500 mg PO BIDWM 09/22/20 09:00 Metoprolol Succinate [Toprol Xl] 25 mg PO DAILY Subjective - Subjective Patient Reports: Feeling Better, Other (Less epigastric pain since yesterday, improved low back pain with lidocaine patch and pain meds) Objective Vital Signs: Vital Signs - 24 hr 09/20/20 09/20/20 09/20/20 11:48 15:46 20:04 Temperature 36.5 C 36.6 C 36.6 C Heart Rate [ 54 L 57 L 64 Brachial] Respiratory 17 18 18 Rate Blood Pressure Blood Pressure 127/72 117/70 130/72 [Right Brachial artery] O2 Saturation 95 95 95 09/20/20 09/20/20 09/21/20 21:30 23:55 05:00 Temperature 36.6 C 36.5 C Heart Rate [ 60 64 Brachial] Respiratory 16 16 Rate Blood Pressure 138/84 H Blood Pressure 123/74 134/72 H [Right Brachial artery] O2 Saturation 94 95 09/21/20 07:25 Temperature 36.6 C Heart Rate [ 57 L Brachial] Respiratory 16 Rate Blood Pressure Blood Pressure 119/72 [Right Brachial artery] O2 Saturation 93 Oxygen O2 Source Room air I&O (Last 24 Hrs): Intake and Output Totals x24h 09/19/20 09/20/20 09/21/20 23:59 23:59 23:59 Intake Total 1150 4280 2500 Output Total 900 Balance 1150 3380 2500 General: Alert, Oriented x3 HEENT: Mucous membr. moist/pink Neck: Supple, No JVD Neuro: Alert, Non Focal, Other (No tremor) Cardiovascular: Regular rate Respiratory: No respiratory distress Abdomen: Normal bowel sounds, Soft, No tenderness Extremities: No edema - Results Results: Laboratory Results WBC 6.4 x10^3/uL (4.8-10.8) 09/21/20 07:08 RBC 4.82 10^6/uL (4.70-6.10) 09/21/20 07:08 Hgb 14.0 g/dL (14.0-18.0) 09/21/20 07:08 Hct 41.9 % (42.0-52.0) L 09/21/20 07:08 MCV 86.9 fL (80.0-94.0) 09/21/20 07:08 MCH 29.0 pg (27.0-31.0) 09/21/20 07:08 MCHC 33.4 g/dL (32.0-36.0) 09/21/20 07:08 RDW 13.3 % (12.0-15.0) 09/21/20 07:08 Plt Count 81 10^3/uL (130-450) L 09/21/20 07:08 MPV 10.0 fL (7.4-11.4) 09/21/20 07:08 Neut # (Auto) 3.8 10^3/uL (1.5-6.6) 09/21/20 07:08 Lymph # (Auto) 1.7 10^3/uL (1.5-3.5) 09/21/20 07:08 Bates # (Auto) 0.6 10^3/uL (0.0-1.0) 09/21/20 07:08 Eos # (Auto) 0.2 10^3/uL (0.0-0.7) 09/21/20 07:08 Baso # (Auto) 0.1 10^3/uL (0.0-0.1) 09/21/20 07:08 Absolute Nucleated RBC 0.00 x10^3/uL 09/21/20 07:08 Nucleated RBC % 0.0 /100WBC 09/21/20 07:08 PT 12.1 secs (9.9-12.6) 09/19/20 18:40 INR 1.1 (0.8-1.2) 09/19/20 18:40 VBG pH 7.276 (7.31-7.41) L 09/19/20 17:13 VBG pCO2 47.2 mmHg (41-51) 09/19/20 17:13 VBG pO2 23.3 mmHg (25-47) L 09/19/20 17:13 VBG HCO3 21.5 mmol/L (23-28) L 09/19/20 17:13 VBG Total CO2 22.9 mmol/L (24-29) L 09/19/20 17:13 VBG O2 Saturation 49.3 % (60-80) L 09/19/20 17:13 VBG Base Excess -5.6 mmol/L (-2 - +2) L 09/19/20 17:13 Sodium 137 mmol/L (135-145) 09/21/20 07:08 Potassium 3.9 mmol/L (3.5-5.0) 09/21/20 07:08 Chloride 102 mmol/L (101-111) 09/21/20 07:08 Carbon Dioxide 27 mmol/L (21-32) 09/21/20 07:08 Anion Gap 8.0 (6-13) 09/21/20 07:08 BUN 8 mg/dL (6-20) 09/21/20 07:08 Creatinine 0.7 mg/dL (0.6-1.2) 09/21/20 07:08 Estimated GFR (MDRD) 114 (>89) 09/21/20 07:08 Glucose 145 mg/dL (70-100) H 09/21/20 07:08 Estimat Average Glucose 309 mg/dL (70-100) H 09/20/20 07:10 Hemoglobin A1c % 12.4 % (4.27-6.07) H 09/20/20 07:10 Calcium 8.6 mg/dL (8.5-10.3) 09/21/20 07:08 Phosphorus 2.6 mg/dL (2.5-4.6) 09/21/20 07:08 Magnesium 1.8 mg/dL (1.7-2.8) 09/21/20 07:08 Total Bilirubin 1.1 mg/dL (0.2-1.0) H 09/19/20 16:18 AST 18 IU/L (10-42) 09/19/20 16:18 ALT 15 IU/L (10-60) 09/19/20 16:18 Alkaline Phosphatase 85 IU/L (42-121) 09/19/20 16:18 Troponin I High Sens 4.3 ng/L (2.3-19.7) 09/20/20 07:10 Total Protein 7.1 g/dL (6.7-8.2) 09/19/20 16:18 Albumin 4.0 g/dL (3.2-5.5) 09/19/20 16:18 Globulin 3.1 g/dL (2.1-4.2) 09/19/20 16:18 Albumin/Globulin Ratio 1.3 (1.0-2.2) 09/19/20 16:18 Triglycerides 318 mg/dL (-149) H 09/20/20 07:10 Cholesterol 217 mg/dL (-199) H 09/20/20 07:10 LDL Cholesterol, Calc 124 mg/dL (-129) 09/20/20 07:10 VLDL Cholesterol 64 mg/dL 09/20/20 07:10 HDL Cholesterol 29 mg/dL (60-) L 09/20/20 07:10 LDL/HDL Ratio 4.3 (<3.6) 09/20/20 07:10 Cholesterol/HDL Ratio 7.5 (<5.0) 09/20/20 07:10 Lipase 42 U/L (22-51) 09/21/20 07:08 Urine Color YELLOW 09/19/20 16:16 Urine Clarity CLEAR (CLEAR) 09/19/20 16:16 Urine pH 5.5 PH (5.0-7.5) 09/19/20 16:16 Ur Specific [place] <=1.005 (1.002-1.030) 09/19/20 16:16 Urine Protein NEGATIVE mg/dL (NEGATIVE) 09/19/20 16:16 Urine Glucose (UA) >=1000 mg/dL (NEGATIVE) H 09/19/20 16:16 Urine Ketones NEGATIVE mg/dL (NEGATIVE) 09/19/20 16:16 Urine Occult Blood NEGATIVE (NEGATIVE) 09/19/20 16:16 Urine Nitrite NEGATIVE (NEGATIVE) 09/19/20 16:16 Urine Bilirubin NEGATIVE (NEGATIVE) 09/19/20 16:16 Urine Urobilinogen 0.2 (NORMAL) E.U./dL (NORMAL) 09/19/20 16:16 Ur Leukocyte Esterase NEGATIVE (NEGATIVE) 09/19/20 16:16 Urine RBC None Seen /HPF (0-5) 09/19/20 16:16 Urine WBC 0-3 /HPF (0-3) 09/19/20 16:16 Ur Squamous Epith Cells RARE Squamous (<= Few) 09/19/20 16:16 Urine Bacteria None Seen /HPF (None Seen) 09/19/20 16:16 Urine Culture Comments NOT INDICATED 09/19/20 16:16 Nasal Adenovirus (PCR) NOT DETECTED 09/19/20 17:45 Nasal B. parapertussis DNA (PCR) NOT DETECTED 09/19/20 17:45 Nasal Coronavir 229E PCR NOT DETECTED 09/19/20 17:45 Nasal Coronavir HKU1 PCR NOT DETECTED 09/19/20 17:45 Nasal Coronavir NL63 PCR NOT DETECTED 09/19/20 17:45 Nasal Coronavir OC43 PCR NOT DETECTED 09/19/20 17:45 Nasal Enterovir/Rhinovir PCR NOT DETECTED 09/19/20 17:45 Nasal Influenza B PCR NOT DETECTED 09/19/20 17:45 Nasal Influenza A PCR NOT DETECTED 09/19/20 17:45 Nasal Parainfluen 1 PCR NOT DETECTED 09/19/20 17:45 Nasal Parainfluen 2 PCR NOT DETECTED 09/19/20 17:45 Nasal Parainfluen 3 PCR NOT DETECTED 09/19/20 17:45 Nasal Parainfluen 4 PCR NOT DETECTED 09/19/20 17:45 Nasal RSV (PCR) NOT DETECTED 09/19/20 17:45 Nasal B.pertussis DNA PCR NOT DETECTED 09/19/20 17:45 Nasal C.pneumoniae (PCR) NOT DETECTED 09/19/20 17:45 Roger Human Metapneumo PCR NOT DETECTED 09/19/20 17:45 Nasal M.pneumoniae (PCR) NOT DETECTED 09/19/20 17:45 Nasal SARS-CoV-2 (PCR) NOT DETECTED 09/19/20 17:45 Urine Opiates Screen POSITIVE (NEGATIVE) H 09/19/20 16:16 Ur Oxycodone Screen NEGATIVE (NEGATIVE) 09/19/20 16:16 Urine Methadone Screen NEGATIVE (NEGATIVE) 09/19/20 16:16 Ur Propoxyphene Screen NEGATIVE (NEGATIVE) 09/19/20 16:16 Ur Barbiturates Screen NEGATIVE (NEGATIVE) 09/19/20 16:16 Ur Tricyclics Screen NEGATIVE (NEGATIVE) 09/19/20 16:16 Ur Phencyclidine Scrn NEGATIVE (NEGATIVE) 09/19/20 16:16 Ur Amphetamine Screen NEGATIVE (NEGATIVE) 09/19/20 16:16 U Methamphetamines Scrn NEGATIVE (NEGATIVE) 09/19/20 16:16 U Benzodiazepines Scrn NEGATIVE (NEGATIVE) 09/19/20 16:16 Urine Cocaine Screen NEGATIVE (NEGATIVE) 09/19/20 16:16 U Cannabinoids Screen NEGATIVE (NEGATIVE) 09/19/20 16:16 Ethyl Alcohol < 5.0 mg/dL 09/20/20 13:50 Serum Ketones NEGATIVE (NEGATIVE) 09/19/20 17:06
--- NOTE | 2020-09-21 12:39 | Discharge Plan ---
Discharge Plan Problem Reviewed?: Yes Disposition: Home, Self Care Condition: Stable Prescriptions: oxyCODONE [Roxicodone] 5 mg PO Q8HR PRN #20 tablet PRN Reason: Pain Aspirin EC [Ecotrin] 81 mg PO DAILY #30 tablet Blood-Glucose Meter [Glucometer] 1 each MC DAILY #1 each metFORMIN [Glucophage] 500 mg PO BIDWM #60 tablet Blood Sugar Diagnostic [Glucose Test Strip] 1 each MC DAILY #30 strip Lancets 1 each MC DAILY #30 each Atorvastatin [Lipitor] 40 mg PO QPM #30 tablet Metoprolol Succinate [Toprol Xl] 25 mg PO DAILY #30 tablet Fenofibrate [Tricor] 134 mg PO DAILY #30 tablet Diet: Diabetic (Soft and non-spicey food recommended) Activity Restrictions: No Restrictions Instruction Topics: Blood Sugar Check, Diabetes Healthy Meals, Diabetes Keep Feet Healthy, Diabetes Type 2 Health Concerns: You were admitted to the hospital because of severely elevated blood glucose level and YOU ARE NOW A DIABETIC. You have been started on new medications to treat the diabetes. Prescriptions for diabetes medicines and a glucometer, lancets and glucose testing strips were sent to your [facility] pharmacy in [place]. Take the metformin: 1 tablet twice a day and after 1 week increase to 2 tablets twice a day. Your new Primary Care Provider will be monitoring and adjusting your diabetes medications. Also you are allowed to make an appointment at the [facility] clinic here for diabetic education and help with diabetes (call [phone], then extension [phone] or extension [phone]). Your heart and cholesterol medicines have been restarted, the prescriptions were electronically sent to your [facility] pharmacy in [place]. Normally, you should be taking a daily baby aspirin, but DO NOT TAKE ASPIRIN DAILY, because your platelet count is very low. You need a CBC blood test in a week, to see if you can restart taking daily aspirin. Medicine for pain control of your back pain has also been prescribed and sent to [facility] pharmacy. You should also try using extra strength Tylenol and warm heating pads to treat your pain. Lidocaine patches were not prescribed since you said they did not work. Refills for pain medications and all the other medicines will be from your [facility] Care Provider going forward. Plan of Treatment: As above. Care Goals: Improvement in symptoms and stabilization are the goals. Assessment: The patient understands and is agreeable with the plan. Additional Instructions or Follow Up instructions: If you have new or worsening symptoms, call your Primary Care Provider for advice, or come to the ER. Follow-Up Care: [facility] Clinic - Diabetes Ed No Smoking: If you smoke, Please STOP! Call for help. Follow-up with: CHARLES PIMENTEL ARNP [Primary Care Provider] -
--- NOTE | 2020-09-21 14:16 | PHARMACY PROGRESS NOTE ---
- Best Possible Medication History Admit Date and Time: 09/19/201812 Processed by: Pharmacy Medication History completed: Yes Patient Interview: Completed (PATIENT TAKES NO HOME MEDICATIONS X 2 YEARS) As the person ultimately responsible for medication therapy, providers are able to order a medication from an existing home medication list in [facility] via the "Reconcile Routine" prior to Confirmation of that medication by business support assistant. Such practice is discouraged except when the physician, in their clinical judgment, deems that a medical need exists for a medication without regard to previous use.
[2020-09-21] MEDS: metFORMIN 500 MG TABLET PO SCH (16:21)
[2020-09-21] MEDS: INSULIN GLARGINE 300 UNIT/3 ML PEN SUBQ SCH (20:58)
[2020-09-21] MEDS: ATORVASTATIN 40 MG TABLET PO SCH (21:01)
[2020-09-22] MEDS: SODIUM CHLORIDE FLUSH 0.9% 10 ML SYRINGE IVP SCH ×2 (01:14→08:24)
[2020-09-22] MEDS: oxyCODONE 5 MG TABLET PO PRN ×3 (03:20→12:07)
[2020-09-22 05:19] LABS: BASOPHILS # (AUTO) 0.1 10^3/uL (0.0-0.1); BASOPHILS % (AUTO) 1.2 %; EOSINOPHILS # (AUTO) 0.2 10^3/uL (0.0-0.7); EOSINOPHILS % (AUTO) 3.9 %; HCT - HEMATOCRIT 40.9 % (42.0-52.0); HGB - HEMOGLOBIN 13.8 g/dL (14.0-18.0); LYMPHOCYTES # (AUTO) 1.6 10^3/uL (1.5-3.5); MEAN CORPUSCULAR HEMOGLOBIN 29.4 pg (27.0-31.0); MEAN CORPUSCULAR HGB CONC 33.7 g/dL (32.0-36.0); MEAN CORPUSCULAR VOLUME 87.2 fL (80.0-94.0); MEAN PLATELET VOLUME 10.7 fL (7.4-11.4); MONOCYTES # (AUTO) 0.5 10^3/uL (0.0-1.0); MONOCYTES % (AUTO) 10.5 %; NEUTROPHILS # (AUTO) 2.5 10^3/uL (1.5-6.6); PLT - PLATELET COUNT 76 10^3/uL (130-450); RED BLOOD COUNT 4.69 10^6/uL (4.70-6.10); RED CELL DISTRIBUTION WIDTH 13.1 % (12.0-15.0); WHITE BLOOD COUNT 4.9 x10^3/uL (4.8-10.8)
[2020-09-22 05:27] LABS: CREATININE 0.6 mg/dL (0.6-1.2); MAGNESIUM 1.7 mg/dL (1.7-2.8); PHOSPHORUS 2.7 mg/dL (2.5-4.6); POTASSIUM 3.5 mmol/L (3.5-5.0)
[2020-09-22] MEDS: PANTOPRAZOLE 40 MG TABLET PO SCH (06:08)
[2020-09-22] MEDS: FENOFIBRATE 48 MG TABLET PO SCH (08:17)
[2020-09-22] MEDS: metFORMIN 500 MG TABLET PO SCH (08:17)
[2020-09-22] MEDS: MULTIVITAMIN TABLET PO SCH (08:17)
[2020-09-22] MEDS: THIAMINE 100 MG TABLET PO SCH (08:17)
[2020-09-22] MEDS: ENOXAPARIN 40 MG/0.4 ML SYRINGE SUBQ SCH (08:18)
[2020-09-22] MEDS: INSULIN ASPART 300 UNIT/3 ML PEN SUBQ SCH ×2 (08:18→12:04)
[2020-09-22] MEDS: ASPIRIN EC 81 MG TABLET PO SCH (08:18)
[2020-09-22] MEDS ORDERED: METOPROLOL SUCCINATE 25 MG TABLET PO SCH (09:00)
[2020-09-22 11:41] VITALS: BP 129/80
--- NOTE | 2020-09-22 12:00 | DISCHARGE SUMMARY ---
Discharge Summary Admit Date: 09/19/20 Discharge Date: 09/22/20 Discharging Provider: Dr Suzy Mccord Primary Care Provider: None Code Status: Attempt Resuscitation Condition at Discharge: Fair Discharge Disposition: 01 Home, Self Care - HPI History of Present Illness: From the admission H&P of Dr Terrell Whitef: This is a 64-year-old male of [place] descent, with a past medical history significant for coronary artery disease, hyperlipidemia, GERD, and chronic back pain who presents to the ER often for complaints of back pain and today came to the ER complaining of chest pain and back pain. He states his chest pain began yesterday evening and has persisted. It is about 3/4 out of 10. He states it feels like a bubble in his chest and it radiates throughout his chest. No associated nausea or diaphoresis. He does have a history of coronary artery disease with stenting back in 2013. He has been off of all medications for more than 4 years including aspirin and statin. He states he also has heartburn which is chronic for him and this pain feels different. He was previously on a PPI for his heartburn. He states that he also has back pain which has been present since 2002 after a lumbar fusion. This was performed in [place]. He states he was on oxycodone for chronic pain but has been off of opiates for quite a few years now. He states his pain has progressively worsened over the past few months. No bladder or bowel incontinence. He does report some numbness in his bilateral lower extremities which is not new. His back pain is about an 8 out of 10. He also states that he has mild abdominal pain that is about 4 out of 10. He has no associated nausea, vomiting, diarrhea. He has been eating without difficulty. Although his alcohol level is elevated, he denies any alcohol use and reports his last alcohol consumption was back in 2012. He tells me he had a history of a DUI in 2001. He is adamant that he has not had any recent alcohol consumption whatsoever and is puzzled that his alcohol level can be elevated. He reports no dysuria, urgency, hematuria. He does endorse polydipsia but denies polyuria. He reports no prior history of diabetes to his knowledge. He states that he has not been on any medication because he has no primary care provider as he has no vehicle for transportation. In the emergency department, he was found to be afebrile. Heart rate was in the 80s. Blood pressure was 119/75. He was not tachypneic and saturating well on room air. Labs were significant for glucose of 620. Lipase was 344. Alcohol level was 169.9. Serum ketones were negative. Urine drug screen was positive for opiates. Negative for oxycodone. Troponin was normal. Chest x-ray is unremarkable as well as EKG. Given the above findings, the Hospitalist was consulted for admission. I did discuss goals of care with the patient and he would like to be a full code. - HOSPITAL COURSE Hospital Course: (1) Newly diagnosed diabetes He was started on oral Metformin 500 twice daily empirically, also Lantus low dose at bedtime and sliding scale Insulin. His A1c came back at 12.4. As his diet was advanced to a diabetic diet, he was running glu levels of 120-180 here. He got diabetic teaching by his RN and also with the [employer]. He was discharged with prescription for a glucometer, lancets and strips, on Metformin 500mg bid for a week, then to increase to 1000 mg bid. Our flame hardening machine operator tried to help him establish with a new PCP, by providing a list of accepting providers, who will need to manage his diabetes going forward. He may also come to the [facility] clinic for Diabetic education. 2) Hyponatremia This was pseudo-hyponatremia and it resolved with iv fluids as the serum glucose was more controlled. (3) Pancreatitis He was first put on a pureed diet which was advanced as tolerated. He had minimal epigastric pain. Lipase was followed and improved into the normal range of 42 by Day #3. He did not have marked hypertriglyceridemia on labs, as the cause of the pancreatitis. He also denied being an alcoholic, as the cause of the pancreatitis. (4) Elevated ETOH level This patient vehemently denied any alcohol intake for 9 years (since he had a DUI remotely and stopped alcohol abuse years ago, he said). He also denied that anybody may have slipped him some alcohol. When he answered, he appeared to be truthful, had good eye contact. Social Work also got information that there was no alcohol abuse currently. He was ordered to be on a CIWA protocol with prn iv Ativan, and needed none. He had no physical signs of alcohol withdrawal while here. His serum blood level showing alcohol, also was positive for opiates and this man was on no medications containing narcotics, therefore the entire toxicology result could have been a lab error. (5) Coronary artery disease His EKG shows inferior Q waves. He had not seen a doctor in about 2 years. He said all his (cardiac) medications ran out. There was no indication for getting an Echo at this time. A Beta-jamie, aspirin and statin were started. On the last 2 days his platelet count had dropped to 80's then 70's, so his Lovenox (for DVT prophylaxis) and his daily aspirin was stopped. He was advised that he needs a CBC to check the plt count, before being OKd to resume daily baby aspirin. He was advised to quit smoking cigarettes. He was prescribed Toprol and Lipitor at discharge. (6) Hypertriglyceridemia He did not have excessive triglyceride levels (over 500) to suggest that it was the cause of the elevated lipase/pancreatitis. The triglyceride level of 318, was in the range of a diabetic. Fenofibrate was started and he was discharged on this. (7) Tobacco user He admitted to 1/3 pack/day cigarette use. He declined needing a nicotine patch while here (8) Chronic back pain Imaging showed degenerative changes of L4-L5 and L5-S1. The oxycodone helped him. The topical lidocaine patch that we tried, did not help. He was disch arged with a new prescription for several days of oxycodone and refills will need to come from his new PCP. (9) Heartburn His "chest pain bubble" was treated and resolved with antacids. At discharge, Protonix 40 mg daily for 14 days was prescribed. - ALLERGIES Allergies/Adverse Reactions: Allergies Allergy/AdvReac Type Severity Reaction Status Date / Time No Known Drug Allergies Allergy Verified 09/19/20 16:06 - MEDICATIONS Home Medications: Ambulatory Orders Medication Instructions Recorded Confirmed Aspirin EC [Ecotrin] 81 mg PO DAILY #30 tablet 09/21/20 Atorvastatin [Lipitor] 40 mg PO QPM #30 tablet 09/21/20 Blood Sugar Diagnostic [Glucose 1 each MC DAILY #30 strip 09/21/20 Test Strip] Blood-Glucose Meter [Glucometer] 1 each MC DAILY #1 each 09/21/20 Fenofibrate [Tricor] 134 mg PO DAILY #30 tablet 03/28/21 Lancets 1 each MC DAILY #30 each 09/21/20 Metoprolol Succinate [Toprol Xl] 25 mg PO DAILY #30 tablet 09/21/20 metFORMIN [Glucophage] 500 mg PO BIDWM #60 tablet 09/21/20 oxyCODONE [Roxicodone] 5 mg PO Q8HR PRN #20 tablet 09/21/20 Pantoprazole [Protonix] 40 mg PO DAILY #14 tablet 09/22/20 - PHYSICAL EXAM AT DISCHARGE General Appearance: positive: No acute distress, Other (Male pattern baldness) Eyes Bilateral: positive: Normal inspection, EOMI ENT: positive: No signs of dehydration Neck: positive: Nml inspection, No JVD Respiratory: positive: No respiratory distress, Breath sounds nml Cardiovascular: positive: Regular rate & rhythm, No murmur Abdomen: positive: Non-tender, Nml bowel sounds, No distention Skin: positive: Warm, Dry Extremities: positive: Non-tender, No pedal edema Neurologic/Psychiatric: positive: Oriented x3, Motor nml (No tremor or nystagmus) - LABS Result Diagrams: 09/22/20 04:44 09/22/20 04:44 - DIAGNOSTIC IMAGING Diagnostic Imaging Results: Final report reviewed - FOLLOW UP Follow Up: Get new PCP, see PCP in 1-2 weeks for hospital follow-up, for CBC to checks plts to resume daily aspirin, and for further diabetic management. - TIME SPENT Time Spent in Discharge (Minutes): 45
== END 2020-09-22 12:30 | disposition home or self-care (01) | DRG 438 ==
LOC: EDSEX → EDUNIT# → ED 15:49 → MS2 18:13
PROVIDERS: ADMIT Internal Medicine; ATTEND Internal Medicine
DX: K86.0 Alcohol-induced chronic pancreatitis (principal); K85.90 Acute pancreatitis without necrosis or infection, unspecified; I10 Essential (primary) hypertension; E11.10 Type 2 diabetes mellitus with ketoacidosis without coma; E87.1 Hypo-osmolality and hyponatremia; F17.200 Nicotine dependence, unspecified, uncomplicated; Z20.822 Contact with and (suspected) exposure to COVID-19; E78.1 Pure hyperglyceridemia; F17.210 Nicotine dependence, cigarettes, uncomplicated; G47.30 Sleep apnea, unspecified; I25.10 Atherosclerotic heart disease of native coronary artery without angina pectoris; G89.29 Other chronic pain; M47.817 Spondylosis without myelopathy or radiculopathy, lumbosacral region; M47.816 Spondylosis without myelopathy or radiculopathy, lumbar region; K21.9 Gastro-esophageal reflux disease without esophagitis; I25.2 Old myocardial infarction; Z98.1 Arthrodesis status; Z95.5 Presence of coronary angioplasty implant and graft
CPT/HCPCS: 36415; 71045; 72100; 80048; 80053; 80061; 80306; 81001; 82009; 82803; 83036; 83690; 83735; 84100; 84484; 85025; 85610; 87631; 93005; 99285; A9270; G0480; J1650; J1815; J7120; 0202U; 80320; 83721; 87086

== ENCOUNTER 2020-10-24 20:03 | Outpatient (CLI) | payer MEDICARE, MEDICAID | END 2020-10-24 20:04 | disposition critical access hospital (66) | LOC: EMS 20:03 | DX: R07.9 Chest pain, unspecified (principal); M54.9 Dorsalgia, unspecified | CPT/HCPCS: A0425; A0429 ==

== ENCOUNTER 2020-10-24 20:21 | Emergency (ER) | payer MEDICARE, MEDICAID ==
--- OUTSIDE RECORDS SUMMARY | 2020-10-24 20:27 | EXTERNAL MEDICAL SUMMARY RPT | Continuity of Care Document ---
:1955 Demographics Phone Unavailable Preferred Language Unknown Marital Status Unknown Pentecostal Affiliation Unknown Race Unknown Ethnic Group Unknown Author Organization [facility] Address [address] [place] [address] Phone Social History date description facility [id number]
[2020-10-24 20:51] LABS: BASOPHILS # (AUTO) 0.1 10^3/uL (0.0-0.1); BASOPHILS % (AUTO) 1.6 %; EOSINOPHILS # (AUTO) 0.4 10^3/uL (0.0-0.7); EOSINOPHILS % (AUTO) 4.9 %; HCT - HEMATOCRIT 43.5 % (42.0-52.0); HGB - HEMOGLOBIN 14.8 g/dL (14.0-18.0); LYMPHOCYTES # (AUTO) 3.2 10^3/uL (1.5-3.5); LYMPHOCYTES % (AUTO) 44.6 %; MEAN CORPUSCULAR HEMOGLOBIN 29.8 pg (27.0-31.0); MEAN CORPUSCULAR VOLUME 87.7 fL (80.0-94.0); MEAN PLATELET VOLUME 9.8 fL (7.4-11.4); MONOCYTES # (AUTO) 0.4 10^3/uL (0.0-1.0); MONOCYTES % (AUTO) 5.9 %; NEUTROPHILS % (AUTO) 42.7 %; PLT - PLATELET COUNT 153 10^3/uL (130-450); RED BLOOD COUNT 4.96 10^6/uL (4.70-6.10); RED CELL DISTRIBUTION WIDTH 13.8 % (12.0-15.0); WHITE BLOOD COUNT 7.1 x10^3/uL (4.8-10.8)
[2020-10-24 21:04] VITALS: BP 102/69
[2020-10-24 21:05] LABS: ALBUMIN 3.9 g/dL (3.2-5.5); ALBUMIN/GLOBULIN RATIO 1.6 (1.0-2.2); BILIRUBIN,TOTAL 0.7 mg/dL (0.2-1.0); CALCIUM 8.4 mg/dL (8.5-10.3); CREATININE 0.8 mg/dL (0.6-1.2); TOTAL PROTEIN 6.4 g/dL (6.7-8.2)
--- NOTE | 2020-10-24 21:26 | XRAY Report ---
PROCEDURE: Chest 1 View X-Ray INDICATIONS: Chest Pain TECHNIQUE: One view of the chest was acquired. COMPARISON: Chest x-ray, one view, 09/19/2020 FINDINGS: Surgical changes and devices: None. Lungs and pleura: No pleural effusions or pneumothorax. Lungs are clear. Mediastinum: Mediastinal contours appear normal. Heart size is normal. Bones and chest wall: Old left clavicular shaft fracture. No suspicious bony lesions. Overlying sof t tissues appear unremarkable. IMPRESSION: No acute cardiopulmonary disease. Reviewed by: Chrystal Stern MD on 10/24/2020 9:24 PM PDT Approved by: Chrystal Stern MD on 10/24/2020 9:24 PM PDT Station ID: [id number]
[2020-10-24] MEDS ORDERED: KETOROLAC 30 MG/ML VIAL IVP STA (22:09)
--- NOTE | 2020-10-24 22:09 | ED Physician Documentation ---
History of Present Illness - Stated complaint Stated Complaint: CP/BACK PAIN - Chief complaint Chief Complaint: Cardiac - Additonal information Additional information: 64-year-old man With history of chronic back pain, [place] in 2012 and 2013, presents with nonradiating chest pain and back pain starting about 4 hours prior to arrival. He is able to state that it is burning quality but when I ask further questions about the characterization of his symptoms the patient is noncompliant with history.He does state that he has not been experiencing shortness of breath, fever, cough, dizziness, leg swelling, nausea or vomiting. Offered Indonesian peanut blancher and he refused. Review of Systems Unable to obtain: Uncooperative PD PAST MEDICAL HISTORY - Past Medical History Past Medical History: Yes Cardiovascular: Hypertension, High cholesterol, Coronary artery disease, [place] Respiratory: Sleep apnea Endocrine/Autoimmune: None GI: GERD : None HEENT: None Psych: None Musculoskeletal: Chronic back pain Derm: None - Past Surgical History Past Surgical History: Yes Ortho: Spine surgery Cardiovascular: Coronary stent - Present Medications Home Medications: Ambulatory Orders Medication Instructions Recorded Confirmed Aspirin EC [Ecotrin] 81 mg PO DAILY #30 tablet 09/21/20 10/24/20 Atorvastatin [Lipitor] 40 mg PO QPM #30 tablet 09/21/20 10/24/20 Blood Sugar Diagnostic [Glucose 1 each MC DAILY #30 strip 09/21/20 10/24/20 Test Strip] Blood-Glucose Meter [Glucometer] 1 each MC DAILY #1 each 09/21/20 10/24/20 Fenofibrate [Tricor] 134 mg PO DAILY #30 tablet 09/21/20 10/24/20 Lancets 1 each MC DAILY #30 each 09/21/20 10/24/20 Metoprolol Succinate [Toprol Xl] 25 mg PO DAILY #30 tablet 09/21/20 10/24/20 metFORMIN [Glucophage] 500 mg PO BIDWM #60 tablet 09/21/20 10/24/20 oxyCODONE [Roxicodone] 5 mg PO Q8HR PRN #20 tablet 09/21/20 10/24/20 Pantoprazole [Protonix] 40 mg PO DAILY #14 tablet 09/22/20 10/24/20 - Allergies Allergies/Adverse Reactions: Allergies Allergy/AdvReac Type Severity Reaction Status Date / Time No Known Drug Allergies Allergy Verified 03/26/21 16:06 - Social History Does the pt smoke?: Yes Smoking Status: Current every day smoker Does the pt drink ETOH?: No Does the pt have substance abuse?: No - Immunizations Immunizations are current?: No Immunizations: TDAP >10years/unknown - POLST Patient has POLST: No PD ED PE NORMAL - Vitals Vital signs reviewed: Yes - General General: Alert and oriented X 3, No acute distress, Well developed/nourished - HEENT HEENT: Atraumatic, PERRL, EOMI - Neck Neck: Supple, no meningeal sign - Cardiac Cardiac: RRR - Respiratory Respiratory: No respiratory distress, Clear bilaterally - Abdomen Abdomen: Non tender, Non distended - Back Back: No CVA TTP - Derm Derm: Normal color, Warm and dry - Extremities Extremities: No deformity - Neuro Neuro: Alert and oriented X 3 Results - Vitals Vitals: Vital Signs - 24 hr 10/24/20 10/24/20 20:29 21:04 Temperature 36.6 C Heart Rate 82 81 Respiratory 10 L 14 Rate Blood Pressure 111/72 102/69 O2 Saturation 97 97 Oxygen O2 Source Room air - Labs Labs: Laboratory Tests 10/24/20 10/24/20 10/24/20 20:44 20:44 20:44 WBC 7.1 RBC 4.96 Hgb 14.8 Hct 43.5 MCV 87.7 MCH 29.8 MCHC 34.0 RDW 13.8 Plt Count 153 MPV 9.8 Neut # (Auto) 3.0 Lymph # (Auto) 3.2 Armstrong # (Auto) 0.4 Eos # (Auto) 0.4 Baso # (Auto) 0.1 Absolute Nucleated RBC 0.00 Nucleated RBC % 0.0 Sodium 138 Potassium 4.0 Chloride 107 Carbon Dioxide 21 Anion Gap 10.0 BUN 9 Creatinine 0.8 Estimated GFR (MDRD) 97 Glucose 233 H Calcium 8.4 L Total Bilirubin 0.7 AST 24 ALT 17 Alkaline Phosphatase 70 Troponin I High Sens 4.0 Total Protein 6.4 L Albumin 3.9 Globulin 2.5 Albumin/Globulin Ratio 1.6 Lipase 82 H PD MEDICAL DECISION MAKING - ED course ED course: Initial chest x-ray, EKG, and lab work noncontributory, however patient should stay for second set of troponins, however he would prefer to leave AGAINST MEDICAL ADVICE. He is at full capacity and able to understand the repercussions Including morbidity and mortality. Strict return precautions given. He will follow up with his primary doctor this week. Departure - Departure Disposition: 07 Against Medical Advice Clinical Impression: Chest pain, Chronic back pain, Hyperglycemia Condition: Stable Instructions: ED Chronic Pain Management Comments: You were seen in the emergency department for chronic back pain and for chest pain. Your initial labwork, ekg, and chest xray did not show any emergent findings, but you do have high blood sugar. You should follow up with your doctor this week and return if you have any new or worsening symptoms or other concerns. Discharge Date/Time: 10/24/20 22:30
== END 2020-10-24 22:30 | disposition left against medical advice (07) ==
LOC: EDUNIT# → ED 20:21
DX: R07.9 Chest pain, unspecified (principal); M54.9 Dorsalgia, unspecified; G89.29 Other chronic pain; R73.9 Hyperglycemia, unspecified; I25.10 Atherosclerotic heart disease of native coronary artery without angina pectoris; I10 Essential (primary) hypertension; Z95.5 Presence of coronary angioplasty implant and graft; I25.2 Old myocardial infarction; Z79.82 Long term (current) use of aspirin; F17.200 Nicotine dependence, unspecified, uncomplicated; Z53.29 Procedure and treatment not carried out because of patient's decision for other reasons
CPT/HCPCS: 36415; 80053; 83690; 84484; 85025; 93005; 96374; 99281

== ENCOUNTER 2020-10-31 22:00 | Outpatient (CLI) | payer MEDICARE, MEDICAID | END 2020-10-31 22:01 | disposition short-term general hospital (02) | LOC: EMS 22:00 | DX: M54.5 Low back pain (principal); R07.9 Chest pain, unspecified | CPT/HCPCS: A0425; A0427 ==

== ENCOUNTER 2020-11-03 09:07 | Outpatient (CLI) | payer MEDICARE, MEDICAID ==
[2020-11-03 12:31] LABS: BASOPHILS # (AUTO) 0.1 10^3/uL (0.0-0.1); BASOPHILS % (AUTO) 1.6 %; EOSINOPHILS # (AUTO) 0.1 10^3/uL (0.0-0.7); EOSINOPHILS % (AUTO) 2.4 %; HCT - HEMATOCRIT 46.8 % (42.0-52.0); HGB - HEMOGLOBIN 15.7 g/dL (14.0-18.0); LYMPHOCYTES # (AUTO) 1.1 10^3/uL (1.5-3.5); LYMPHOCYTES % (AUTO) 20.6 %; MEAN CORPUSCULAR HEMOGLOBIN 29.7 pg (27.0-31.0); MEAN CORPUSCULAR HGB CONC 33.5 g/dL (32.0-36.0); MEAN CORPUSCULAR VOLUME 88.5 fL (80.0-94.0); MEAN PLATELET VOLUME 10.5 fL (7.4-11.4); MONOCYTES # (AUTO) 0.4 10^3/uL (0.0-1.0); NEUTROPHILS # (AUTO) 3.7 10^3/uL (1.5-6.6); PLT - PLATELET COUNT 131 10^3/uL (130-450); RED BLOOD COUNT 5.29 10^6/uL (4.70-6.10); RED CELL DISTRIBUTION WIDTH 13.8 % (12.0-15.0); WHITE BLOOD COUNT 5.5 x10^3/uL (4.8-10.8)
[2020-11-03 12:49] LABS: ALBUMIN 4.4 g/dL (3.2-5.5); ALBUMIN/GLOBULIN RATIO 1.4 (1.0-2.2); ALKALINE PHOSPHATASE 78 IU/L (42-121); ALT ALANINE AMINOTRANSFERASE 23 IU/L (10-60); AST ASPARTATE AMINOTRANSFERASE 25 IU/L (10-42); BILIRUBIN,TOTAL 0.8 mg/dL (0.2-1.0); BUN - BLOOD UREA NITROGEN 9 mg/dL (6-20); CALCIUM 9.1 mg/dL (8.5-10.3); CARBON DIOXIDE - CO2 27 mmol/L (21-32); CHLORIDE 98 mmol/L (101-111); CHOL/HDL RATIO 2.8 (<5.0); CHOLESTEROL 199 mg/dL; CREATININE 0.7 mg/dL (0.6-1.2); GFR - MDRD 114 (>89); GLUCOSE 169 mg/dL (70-100); HDL CHOLESTEROL 70 mg/dL; LDL CHOLESTEROL,CALCULATED 90 mg/dL; LDL/HDL RATIO 1.3 (<3.6); POTASSIUM 4.4 mmol/L (3.5-5.0); SODIUM 135 mmol/L (135-145); TOTAL PROTEIN 7.5 g/dL (6.7-8.2); TRIGLYCERIDES 194 mg/dL; VLDL CHOLESTEROL 39 mg/dL
[2020-11-03 13:08] LABS: THYROID STIMULATING HORMONE 2.12 uIU/mL (0.34-5.60)
[2020-11-03 13:16] LABS: MICROALBUMIN,URINE < 0.2 mg/dL (0-300.0)
[2020-11-03 13:52] LABS: ESTIMATED AVERAGE GLUCOSE 197 mg/dL (70-100); HEMOGLOBIN A1c% 8.5 % (4.27-6.07)
== END 2020-11-03 23:59 | disposition home or self-care (01) ==
LOC: LAB.N 09:07
PROVIDERS: ATTEND Family Medicine
DX: R10.13 Epigastric pain (principal); E11.9 Type 2 diabetes mellitus without complications; I25.10 Atherosclerotic heart disease of native coronary artery without angina pectoris
CPT/HCPCS: 36415; 80053; 80061; 82043; 82570; 83036; 83721; 84443; 85025

== ENCOUNTER 2022-03-28 17:56 | Outpatient (CLI) | payer MEDICARE, MEDICAID | END 2022-03-28 17:57 | disposition short-term general hospital (02) | LOC: EMS 17:56 | DX: R07.9 Chest pain, unspecified (principal); R10.2 Pelvic and perineal pain; M54.50 Low back pain, unspecified; M79.672 Pain in left foot; M79.671 Pain in right foot | CPT/HCPCS: A0425; A0427; A0888 ==

== ENCOUNTER 2022-04-30 17:44 | Outpatient (CLI) | payer MEDICARE, MEDICAID | END 2022-04-30 17:45 | disposition short-term general hospital (02) | LOC: EMS 17:44 | DX: R07.9 Chest pain, unspecified (principal); M79.622 Pain in left upper arm; R20.2 Paresthesia of skin; R10.30 Lower abdominal pain, unspecified; R42 Dizziness and giddiness; M54.9 Dorsalgia, unspecified; G89.29 Other chronic pain | CPT/HCPCS: A0425; A0427 ==

== ENCOUNTER → 2022-05-28 | Outpatient (CLI) | payer MEDICARE, MEDICAID | END | disposition short-term general hospital (02) | LOC: EMS 22:31 | DX: R07.9 Chest pain, unspecified (principal); M54.50 Low back pain, unspecified | CPT/HCPCS: A0425; A0427; A0888 ==

== ENCOUNTER 2022-06-06 18:36 | Emergency (ER) | payer MEDICARE, MEDICAID ==
[2022-06-06 19:03] VITALS: BP 110/76
== END 2022-06-06 19:23 | disposition left against medical advice (07) ==
LOC: EDUNIT# → ED 18:36
DX: Z53.21 Procedure and treatment not carried out due to patient leaving prior to being seen by health care provider (principal)

== ENCOUNTER → 2022-06-06 | Outpatient (CLI) | payer MEDICARE, MEDICAID | END | disposition critical access hospital (66) | LOC: EMS 18:18 | DX: R07.9 Chest pain, unspecified (principal); M54.9 Dorsalgia, unspecified; R45.1 Restlessness and agitation | CPT/HCPCS: A0425; A0427 ==

== ENCOUNTER 2022-06-25 17:08 | Outpatient (CLI) | payer MEDICARE, MEDICAID | END 2022-06-25 23:59 | disposition EMS.NT | LOC: EMS 17:08 | DX: M54.2 Cervicalgia (principal); M25.512 Pain in left shoulder ==

== ENCOUNTER 2022-06-25 18:38 | Outpatient (CLI) | payer MEDICARE, MEDICAID | END 2022-06-25 23:59 | disposition critical access hospital (66) | LOC: EMS 18:38 | DX: M54.2 Cervicalgia (principal); R07.9 Chest pain, unspecified; R11.10 Vomiting, unspecified; M79.602 Pain in left arm | CPT/HCPCS: A0425; A0427 ==

== ENCOUNTER 2022-06-25 19:03 | Emergency (ER) | payer MEDICARE, MEDICAID ==
[2022-06-25] MEDS ORDERED: HYDROmorphone 1 MG/ML CARPUJECT IVP STA (19:24)
--- NOTE | 2022-06-25 19:25 | ED Physician Documentation ---
PD HPI CHEST PAIN - Stated complaint Stated Complaint: L SHOULDER PX - History obtained from History obtained from: Patient - Additional information Additional information: 66-year-old gentleman with history of tobacco abuse, [place] x3, peripheral vascular disease presents with left-sided chest pain radiating to the neck arm and back starting at 4:00 today while at rest. It feels like prior [place]. Received 8 mg of morphine in route without improvement. He is not short of breath. Review of Systems Ten Systems: 10 systems reviewed and negative Cardiac: reports: Chest pain / pressure. denies: Palpitations Respiratory: denies: Dyspnea, Cough PD PAST MEDICAL HISTORY - Past Medical History Cardiovascular: Hypertension, High cholesterol, Coronary artery disease, [place] Respiratory: Sleep apnea Endocrine/Autoimmune: None GI: GERD : None HEENT: None Psych: None Musculoskeletal: Chronic back pain Derm: None - Past Surgical History Past Surgical History: Yes Ortho: Spine surgery Cardiovascular: Coronary stent - Present Medications Home Medications: Ambulatory Orders Medication Instructions Recorded Confirmed Aspirin EC [Ecotrin] 81 mg PO DAILY #30 tablet 09/21/20 10/24/20 Atorvastatin [Lipitor] 40 mg PO QPM #30 tablet 09/21/20 10/24/20 Blood Sugar Diagnostic [Glucose 1 each MC DAILY #30 strip 09/21/20 10/24/20 Test Strip] Blood-Glucose Meter [Glucometer] 1 each MC DAILY #1 each 09/21/20 10/24/20 Fenofibrate [Tricor] 134 mg PO DAILY #30 tablet 09/21/20 10/24/20 Lancets 1 each MC DAILY #30 each 09/21/20 10/24/20 Metoprolol Succinate [Toprol Xl] 25 mg PO DAILY #30 tablet 09/21/20 10/24/20 metFORMIN [Glucophage] 500 mg PO BIDWM #60 tablet 09/21/20 10/24/20 oxyCODONE [Roxicodone] 5 mg PO Q8HR PRN #20 tablet 09/21/20 10/24/20 Pantoprazole [Protonix] 40 mg PO DAILY #14 tablet 09/22/20 10/24/20 Oxycodone HCl/Acetaminophen 1 - 2 each PO Q6H PRN #20 tablet 06/25/22 [Percocet 5-325 mg Tablet] - Allergies Allergies/Adverse Reactions: Allergies Allergy/AdvReac Type Severity Reaction Status Date / Time No Known Drug Allergies Allergy Verified 06/25/22 19:20 - Social History Does the pt smoke?: Yes Smoking Status: Current every day smoker Does the pt drink ETOH?: No Does the pt have substance abuse?: No - Immunizations Immunizations are current?: No Immunizations: TDAP >10years/unknown - POLST Patient has POLST: No PD ED PE NORMAL - Vitals Vital signs reviewed: Yes - General General: Alert and oriented X 3, Other (He appears slightly uncomfortable) - HEENT HEENT: PERRL, EOMI - Neck Neck: Supple, no meningeal sign, No bony TTP - Cardiac Cardiac: RRR, No murmur - Respiratory Respiratory: No respiratory distress, Clear bilaterally - Abdomen Abdomen: Normal bowel sounds, Soft, Other (Moderate diffuse tenderness especially in the upper abdomen without surgical signs.) - Back Back: No CVA TTP, No spinal TTP - Derm Derm: Normal color, Warm and dry - Extremities Extremities: Other (He has chronic left leg numbness from peripheral vascular disease that is not changed from his usual.) - Neuro Neuro: Alert and oriented X 3, Normal speech - Psych Psych: Normal mood, Normal affect Results - Vitals Vitals: Vital Signs - 24 hr 06/25/22 06/25/22 06/25/22 19:20 20:00 21:30 Temperature 36.5 C Heart Rate 89 80 94 Respiratory 16 10 L 13 Rate Blood Pressure 110/76 130/67 148/87 H O2 Saturation 98 100 98 Oxygen O2 Source Room air - EKG (time done) 1954 Rate: Rate (enter#) (80) Rhythm: NSR, LAE [place]: Normal Intervals: Normal MT QRS: Normal Ischemia: Other (Inferior Q waves, flat lateral and inferior T waves.) - Labs Labs: Laboratory Tests 06/25/22 06/25/22 06/25/22 19:35 19:35 19:35 WBC 8.0 RBC 5.57 Hgb 16.4 Hct 48.8 MCV 87.6 MCH 29.4 MCHC 33.6 RDW 13.8 Plt Count 149 MPV 9.9 Neut # (Auto) 4.8 Lymph # (Auto) 2.4 [place]berry # (Auto) 0.5 Eos # (Auto) 0.1 Baso # (Auto) 0.1 Absolute Nucleated RBC 0.00 Nucleated RBC % 0.0 Sodium 134 L Potassium 4.2 Chloride 99 L Carbon Dioxide 21 Anion Gap 14.0 H BUN 6 Creatinine 0.8 Estimated GFR (MDRD) 97 Glucose 240 H Calcium 9.1 Total Bilirubin 1.6 H AST 37 ALT 43 Alkaline Phosphatase 83 Troponin I High Sens 6.0 Total Protein 7.1 Albumin 4.0 Globulin 3.1 Albumin/Globulin Ratio 1.3 Lipase 132 H 06/25/22 21:32 WBC RBC Hgb Hct MCV MCH MCHC RDW Plt Count MPV Neut # (Auto) Lymph # (Auto) [place]berry # (Auto) Eos # (Auto) Baso # (Auto) Absolute Nucleated RBC Nucleated RBC % Sodium Potassium Chloride Carbon Dioxide Anion Gap BUN Creatinine Estimated GFR (MDRD) Glucose Calcium Total Bilirubin AST ALT Alkaline Phosphatase Troponin I High Sens 5.5 Total Protein Albumin Globulin Albumin/Globulin Ratio Lipase - Rads (name of study) CTA Chest/Abd/Pelvis Radiology: Final report received, EMP read indepedently PD Medical Decision Making - ED course ED course: 66-year-old gentleman with coronary disease presents with atypical chest pain that has been going on for a few hours with none obviously ischemic EKG. Given the site of his pain vascular etiology was also considered and he had CT angiography of the chest and abdomen. He does have multiple incidental findings including peripheral vascular disease, unexplained right-sided hydronephrosis, but most pressingly he has nodular masses in the anterior medial lingula with concern for neoplasm and metastatic lymph nodes. This diagnosis was discussed with the patient and he was understandably upset. We discussed follow-up, he does not have a primary care physician and he was referred to the Clinic. I also sent a protected email to the estate manager of the [facility] asking her to help navigate this new diagnosis and further work-up and treatment. Departure - Departure Disposition: 01 Home, Self Care Clinical Impression: Atypical chest pain, Lung tumor, Vascular disease Condition: Good Record reviewed to determine appropriate education?: Yes Instructions: ED Tumor [facility] Follow-Up: Gab José MD [Provider Admit Priv/Credential] - Prescriptions: Oxycodone HCl/Acetaminophen [Percocet 5-325 mg Tablet] 1 - 2 each PO Q6H PRN #20 tablet PRN Reason: pain Comments: Your testing today showed no sign of active heart disease, that said, unfortunat shailesh we did CAT scans to rule out a vascular cause of your chest pain and but we did find is nodular masses in the left lung concerning for lung cancer with swollen lymph nodes that would suggest a spread of that cancer. On this form is a number of a local physician at one of our clinics who is taking emergency department follow-up patients. You should call his office on Tuesday for an appointment. I have also emailed the estate manager of our cancer clinic to reach out to you to see what follow-up they can offer. I sent prescription electronically to [facility] Ferraro in [place]. I am prescribing a short course of narcotic pain medication for you. These are potentially dangerous and addictive medications that should be used carefully. These medications may constipate you. Take an [id number] stool softener (docusate) twice daily with plenty of water while taking these medications. If you go 24 hours without a bowel movement, take [id number] miralax, per package instructions. Do not drink or drive while taking these medications. If you received narcotic or sedating medications while in the emergency department, do not drive for 24 hours. Store this medication in a safe, secure place and out of reach of children. It is a violation of federal law to give or sell this medication to another person or to use in a manner other than prescribed. The ED will not refill narcotic prescriptions, including prescriptions lost or stolen. To dispose of unwanted medications: 1. [facility] at [address] in [place] has a medication drop box. They accept prescription medications (in pill form) Tuesday through Tuesday 9:00 a.m. to 5:00 p.m. 2. The [facility] accepts prescription medications (in pill form only) for disposal year round. Call for more information. 3. Contact the [facility] for the next [facility] sponsored prescription drug collection event. , [phone], or [phone]; Note that many narcotic pain relievers also contain Tylenol/acetaminophen. Please ensure that your total dose of acetaminophen from all sources does not exceed 3 g (3000 mg) per day.
--- OUTSIDE RECORDS SUMMARY | 2022-06-25 19:33 | EXTERNAL MEDICAL SUMMARY RPT | Continuity of Care Document ---
:1955 Author Organization [facility] Address [address] [place] [address] Phone Care Team Providers Name Role Phone Unavailable Unavailable Unavailable Fausto Padgett Unavailable Unavailable Allergies and Intolerances date description facility type (no date) No Known Drug Allergies [facility] ([facility]kn own) Encounters No information. Functional Status No information. Immunizations No information. Medications date description facility 2022-03-30 00:[address] [facility] 2022-05-01 00:[address] [facility] 2022-03-29 00:[address] [facility] 2022-03-[address] [facility] 2022-04-30 00:[address] [facility] 2022-05-[address] [facility] 2022-03-30 00:[address] [facility] 2022-03-30 00:[address] [facility] 2022-03-[address] [facility]22-03-30 [facility]:[address] [facility] 2022-03-29 00:[address] [facility] 2022-03-30 00:00 [facility] Problems date description facility 2022-03-28 00:00 atypical chest pain (finding) [facility] 2022-03-28 00:00 ap - [facility] 2022-03-28 00:00 acute retention of urine (disorder) [facility] 2022-03-28 00:00 diabetes mellitus without mention of [facility] complication, type ii or unspecified typ e, uncontrolled 2022-03-28 00:[address] [facility] 2022-03-28 00:00 hypertensive disorder, systemic arteria [facility] 2022-03-28 00:00 unspecified essential hypertension [facility] 2022-03-28 00:00 coronary atherosclerosis of unspecified type of [facility] vessel, craig or graft 2022-03-28 00:00 history of coronary artery disease with stent [facility] 2022-03-28 00:00 alcohol in blood specimen above referen ce range [facility] (finding) 2022-03-28 00:00 type [address] [facility] 2022-03-28 00:[address] [facility] 2022-03-28 [address] [facility]03-[facility] other [facility] 20[facility]28 [facility]:[address] [facility] 2022-03-28 00:00 excessive blood level of alcohol [facility] 2022-03-28 00:00 hyperglycemia (disorder) [facility] 2022-03-28 00:[address] [facility] 2022-03-28 00:00 essential (primary) hypertension [facility] 2022-03-28 00:00 atherosclerotic heart disease of [facility] coronary artery without angina pectoris 2022-03-28 00:00 acute pancreatitis without necrosis or [facility] infection, unspecified 2022-03-28 00:[address] [facility] 2022-03-28 00:00 low back pain, unspecified [facility] 2022-03-28 00:[address] [facility] 2022-03-28 00:[address] [facility] 2022-03-28 00:00 Acute retention of urine [facility] 2022-03-28 00:00 other retention of urine [facility] 2022-03-28 00:[address] [facility] 2022-03-28 00:00 hyperglycemia, unspecified [facility] 2022-03-28 00:00 finding of alcohol in blood [facility] 2022-03-28 00:00 percutaneous transluminal coronary gray oplasty [facility] status 2022-03-28 00:00 presence of coronary angioplasty implan t and [facility] graft 2022-03-30 00:00 atypical chest pain (finding) [facility] 2022-03-30 00:00 ap - acute [facility]itis [facility] 2022-03-30 00:00 acute retention of urine (disorder) [facility] 2022-03-30 00:00 diabetes mellitus without mention of [facility] complication, type ii or unspecified typ e, uncontrolled 2022-03-30 00:[address] [facility] 2022-03-30 00:00 hypertensive disorder, systemic arteria l [facility] 2022-03-30 00:00 unspecified essential hypertension [facility] 2022-03-30 00:00 coronary atherosclerosis of unspecified type of [facility] vessel, craig or graft 2022-03-30 00:00 history of coronary artery disease with stent [facility] placement 2022-03-30 00:00 alcohol in blood specimen above referen ce [facility] (finding) 2022-03-30 00:00 type [address] [facility] 2022-03-30 00:[address] [facility] 2022-03-30 [address] [facility] 2022-03-30 00:00 [facility] 2022-03-30 00:00 other specified retention of urine [facility] 2022-03-30 00:[address] [facility] 2022-03-30 00:00 excessive blood level of alcohol [facility] 2022-03-30 00:00 [facility]:00 essential (primary) hypertension [facility] 2022-03-30 00:00 atherosclerotic heart disease of [facility] coronary artery without angina pectoris 2022-03-30 00:00 acute pancreatitis without necrosis or [facility] infection, unspecified 2022-03-30 00:00 low back pain, unspecified [facility] 2022-03-30 00:[address] [facility] 2022-03-30 00:00 other retention of urine [facility] 2022-03-30 00:00 hyperglycemia, unspecified [facility] 2022-03-30 00:00 finding of alcohol in blood [facility] 2022-03-30 00:00 percutaneous transluminal coronary gray oplasty [facility] status 2022-03-30 00:00 presence of coronary angioplasty implan t and [facility] graft 2022-04-05 10:07 Chest pain, [facility] 2022-04-30 00:00 Left [facility] radiculopathy [facility] 2022-05-01 00:00 Left lumbar radiculopathy [facility] 2022-06-03 23:45 Chest pain, unspecified [facility] Procedures date description facility 2022-03-28 00:00 NM carrington perf SPECT rest & str [facility] 2022-03-28 00:00 NM SPECT imaging myocard perfus w multi studies [facility] incl rest, stress and redistrib 2022-03-28 00:00 NM carrington perf SPECT R&S pharm [facility] 2022-03-28 00:00 MR lumbar spine wo [facility] 2022-03-28 00:00 X-ray of chest, single view [facility] 2022-04-30 00:00 X-ray of chest, single view [facility] 2022-05-28 00:00 X-ray of chest, single view [facility] 2022-03-28 00:[address] [facility] 2022-03-28 00:00 Complete Doppler echocardiography [facility] 2022-03-28 00:00 EC echo doppler complete [facility] 2022-03-[facility]:00 CT angio chest PE protocol [facility] 2022-03-28 00:00 Computed tomography angiography of ches t with [facility] contrast for pulmonary embolus 2022-03-28 00:00 CT abdomen pelvis w [facility] Results/Labs test date author facility value unit interpret ation Result panel 1 (unknown) (no date) (unknown) [facility] Result panel 2 (unknown) (no date) (unknown) [facility]) Result panel 3 (unknown) (no date) (unknown) [facility]) Result panel 4 (unknown) (no date) (unknown) [facility]) Result panel 5 (unknown) (no date) (unknown) [facility]) Result panel 6 (unknown) (no date) (unknown) [facility]) Result panel 7 (unknown) (no date) (unknown) [facility]) Result panel 8 (unknown) (no date) (unknown) [facility]) Result panel 9 (unknown) (no date) (unknown) [facility]) Result panel 10 (unknown) (no date) ([facility]) Result panel 11 (unknown) (no date) (unknown[facility] Result panel 12 (unknown) (no date) (unknown[facility]) Result panel 13 (unknown) (no date) (unknown[facility]) Result panel 14 (unknown) (no date) (unknown[facility] Result panel 15 (unknown) (no date) (unknown[facility]) Result panel 16 (unknown) (no date) (unknown[facility]) Result panel 17 (unknown) (no date) (unknown[facility]) Result panel 18 (unknown) (no date) (unknown[facility] Result panel 19 (unknown) (no date) (unknown[facility]) Result panel 20 (unknown) (no date) (unknown[facility]) Result panel 21 (unknown) (no date) (unknown[facility]) Result panel 22 (unknown) (no date) (unknown[facility]) Result panel 23 (unknown) (no date) (unknown[facility] Result panel 24 (unknown) (no date) (unknown[facility]) Result panel 25 (unknown) (no date) (unknown[facility]) Result panel 26 (unknown) (no date) (unknown[facility]) Result panel 27 (unknown) (no date) (unknown[facility]) Result panel 28 (unknown) (no date) (unknown[facility]) Result panel 29 (unknown) (no date) (unknown[facility]) Result panel 30 (unknown) (no date) (unknown[facility] Result panel 31 (unknown) (no date) (unknown[facility]) Result panel 32 (unknown) (no date) (unknown[facility]) Result panel 33 (unknown) (no date) (unknown[facility]) Result panel 34 (unknown) (no date) (unknown[facility]) Result panel 35 (unknown) (no date) (unknown[facility] Result panel 36 (unknown) (no date) (unknown[facility]) Result panel 37 (unknown) (no date) (unknown[facility] Result panel 38 (unknown) (no date) (unknown[facility]) Result panel 39 (unknown) (no date) (unknown[facility]) Result panel 40 (unknown) (no date) (unknown[facility]) Result panel 41 (unknown) (no date) (unknown[facility]) Result panel 42 (unknown) (no date) (unknown[facility]) Result panel 43 (unknown) (no date) (unknown[facility]) Result panel 44 (unknown) (no date) (unknown[facility]) Result panel 45 (unknown) (no date) (unknown[facility]) Result panel 46 (unknown) (no date) (unknown[facility]) Result panel 47 (unknown) (no date) (unknown[facility]) Result panel 48 (unknown) (no date) (unknown[facility]) Result panel 49 (unknown) (no date) (unknown[facility]) Result panel 50 (unknown) (no date) (unknown[facility]) Result panel 51 (unknown) (no date) (unknown[facility]) Result panel 52 (unknown) (no date) (unknown[facility]) Result panel 53 (unknown) (no date) (unknown[facility]) Result panel 54 (unknown) (no date) (unknown[facility]) Result panel 55 (unknown) (no date) (unknown[facility]) Result panel 56 (unknown) (no date) (unknown[facility]) Result panel 57 (unknown) (no date) (unknown[facility]) Result panel 58 (unknown) (no date) (unknown[facility]) Result panel 59 (unknown) (no date) (unknown[facility]) Result panel 60 (unknown) (no date) (unknown[facility]) Result panel 61 (unknown) (no date) (unknown[facility]) Result panel 62 (unknown) (no date) (unknown[facility]) Result panel 63 (unknown) (no date) (unknown[facility]) Result panel 64 (unknown) (no date) (unknown[facility]) Result panel 65 (unknown) (no date) (unknown[facility]) Result panel 66 (unknown) (no date) (unknown[facility]) Result panel 67 (unknown) (no date) (unknown[facility]) Result panel 68 (unknown) (no date) (unknown[facility]) Result panel 69 (unknown) (no date) (unknown[facility]) Result panel 70 (unknown) (no date) (unknown[facility]) Result panel 71 (unknown) (no date) (unknown[facility]) Result panel 72 (unknown) (no date) (unknown[facility]) Result panel 73 (unknown) (no date) (unknown[facility]) Result panel 74 (unknown) (no date) (unknown[facility]) Result panel 75 (unknown) (no date) (unknown[facility]) Result panel 76 (unknown) (no date) (unknown[facility]) Result panel 77 (unknown) (no date) (unknown[facility]) Result panel 78 (unknown) (no date) (unknown[facility]) Result panel 79 (unknown) (no date) (unknown[facility]) Result panel 80 (unknown) (no date) (unknown[facility]) Result panel 81 (unknown) (no date) (unknown[facility]) Result panel 82 (unknown) (no date) (unknown[facility]) Result panel 83 (unknown) (no date) (unknown[facility]) Result panel 84 (unknown) (no date) (unknown[facility]) Result panel 85 (unknown) (no date) (unknown[facility]) Result panel 86 (unknown) (no date) (unknown[facility]) Result panel 87 (unknown) (no date) (unknown[facility]) Result panel 88 (unknown) (no date) (unknown[facility]) Result panel 89 (unknown) (no date) (unknown[facility]) Result panel 90 (unknown) (no date) (unknown[facility]) Result panel 91 (unknown) (no date) (unknown[facility]) Result panel 92 (unknown) (no date) (unknown[facility]) Result panel 93 (unknown) (no date) (unknown[facility]) Result panel 94 (unknown) (no date) (unknown[facility]) Result panel 95 (unknown) (no date) (unknown[facility]) Result panel 96 (unknown) (no date) (unknown[facility]) Result panel 97 (unknown) (no date) (unknown[facility]) Result panel 98 (unknown) (no date) (unknown[facility]) Result panel 99 (unknown) (no date) (unknown[facility]) Result panel 100 (unknown) (no date) (unknown[facility]) Result panel 101 (unknown) (no date) (unknown[facility]) Result panel 102 (unknown) (no date) (unknown[facility]) Result panel 103 (unknown) (no date) (unknown[facility]) Result panel 104 (unknown) (no date) (unknown[facility]) Result panel 105 (unknown) (no date) (unknown[facility]) Result panel 106 (unknown) (no date) (unknown[facility]) Result panel 107 (unknown) (no date) (unknown[facility]) Result panel 108 (unknown) (no date) (unknown[facility]) Result panel 109 (unknown) (no date) (unknown[facility]) Result panel 110 (unknown) (no date) (unknown[facility]) Result panel 111 (unknown) (no date) (unknown[facility]) Result panel 112 (unknown) (no date) (unknown[facility]) Result panel 113 (unknown) (no date) (unknown[facility] Result panel 114 (unknown) (no date) (unknown[facility]) Result panel 115 (unknown) (no date) (unknown) [facility]) Result panel 116 (unknown) (no date) (unknown) [facility]) Result panel 117 (unknown) (no date) (unknown) [facility]) Result panel 118 (unknown) (no date) (unknown[facility]) Result panel 119 (unknown) (no date) (unknown[facility]) Result panel 120 (unknown) (no date) (unknown[facility]) Result panel 121 (unknown) (no date) (unknown) [facility]) Result panel 122 (unknown) (no date) (unknown[facility]) Result panel 123 (unknown) (no date) (unknown[facility]) Result panel 124 (unknown) (no date) (unknown) [facility]) Result panel 125 (unknown) (no date) (unknown[facility]) Result panel 126 (unknown) (no date) (unknown[facility]) Result panel 127 (unknown) (no date) (unknown) [facility]) Result panel 128 (unknown) (no date) (unknown[facility]) Result panel 129 (unknown) (no date) (unknown[facility]) Result panel 130 (unknown) (no date) (unknown) [facility]) Result panel 131 (unknown) (no date) (unknown[facility]) Result panel 132 (unknown) (no date) (unknown[facility]) Result panel 133 (unknown) (no date) (unknown[facility]) Result panel 134 (unknown) (no date) (unknown[facility]) Result panel 135 (unknown) (no date) (unknown[facility]) Result panel 136 (unknown) (no date) (unknown) [facility]) Result panel 137 (unknown) (no date) (unknown[facility]) Result panel 138 (unknown) (no date) (unknown) [facility]) Result panel 139 (unknown) (no date) (unknown) [facility]) Result panel 140 (unknown) (no date) (unknown) [facility]) Result panel 141 (unknown) (no date) (unknown[facility]) Result panel 142 (unknown) (no date) (unknown) [facility]) Result panel 143 (unknown) (no date) (unknown) [facility]) Result panel 144 (unknown) (no date) (unknown) [facility]) Result panel 145 (unknown) (no date) (unknown) [facility]) Result panel 146 (unknown) (no date) (unknown[facility]) Result panel 147 (unknown) (no date) (unknown) [facility]) Result panel 148 (unknown) (no date) (unknown[facility]) Result panel 149 (unknown) (no date) (unknown) [facility]) Result panel 150 (unknown) (no date) (unknown[facility]) Result panel 151 (unknown) (no date) (unknown) [facility]) Result panel 152 (unknown) (no date) (unknown) [facility]) Result panel 153 (unknown) (no date) (unknown) [facility]) Result panel 154 (unknown) (no date) (unknown) [facility]) Result panel 155 (unknown) (no date) (unknown) [facility]) Result panel 156 (unknown) (no date) (unknown) [facility]) Result panel 157 (unknown) (no date) (unknown) [facility]) Result panel 158 (unknown) (no date) (unknown) [facility]) Result panel 159 (unknown) (no date) (unknown) [facility]) Result panel 160 (unknown) (no date) (unknown) [facility]) Result panel 161 (unknown) (no date) (unknown) [facility]) Result panel 162 (unknown) (no date) (unknown) [facility]) Result panel 163 (unknown) (no date) (unknown) [facility]) Result panel 164 (unknown) (no date) (unknown) [facility]) Result panel 165 (unknown) (no date) (unknown) [facility]) Result panel 166 (unknown) (no date) (unknown) [facility]) Result panel 167 (unknown) (no date) (unknown) [facility] Result panel 168 (unknown) (no date) (unknown) [facility]) Result panel 169 (unknown) (no date) (unknown) [facility] Result panel 170 (unknown) (no date) (unknown) [facility] Result panel 171 (unknown) (no date) (unknown) [facility] Result panel 172 (unknown) (no date) (unknown) [facility]) Result panel 173 (unknown) (no date) (unknown) [facility] Result panel 174 (unknown) (no date) (unknown) [facility]) Result panel 175 (unknown) (no date) (unknown) [facility] Result panel 176 (unknown) (no date) (unknown) [facility]) Result panel 177 (unknown) (no date) (unknown) [facility]) Result panel 178 (unknown) (no date) (unknown) [facility]) Result panel 179 (unknown) (no date) (unknown) [facility] Result panel 180 (unknown) (no date) (unknown[facility]) Result panel 181 (unknown) (no date) (unknown) [facility]) Result panel 182 (unknown) (no date) (unknown) [facility] Result panel 183 (unknown) (no date) (unknown) [facility]) Result panel 184 (unknown) (no date) (unknown) [facility]) Result panel 185 (unknown) (no date) (unknown) [facility]) Result panel 186 (unknown) (no date) (unknown[facility]) Result panel 187 (unknown) (no date) (unknown) [facility]) Result panel 188 (unknown) (no date) (unknown) [facility] Result panel 189 (unknown) (no date) (unknown[facility]) Result panel 190 (unknown) (no date) (unknown) [facility] Result panel 191 (unknown) (no date) (unknown) [facility] Result panel 192 (unknown) (no date) (unknown) [facility]) Result panel 193 (unknown) (no date) (unknown) [facility]) Result panel 194 (unknown) (no date) (unknown) [facility]) Result panel 195 (unknown) (no date) (unknown) [facility]) Result panel 196 (unknown) (no date) (unknown) [facility]) Result panel 197 (unknown) (no date) (unknown) [facility]) Result panel 198 (unknown) (no date) (unknown) [facility]) Result panel 199 (unknown) (no date) (unknown) [facility]) Result panel 200 (unknown) (no date) (unknown) [facility]) Result panel 201 (unknown) (no date) (unknown) [facility]) Result panel 202 (unknown) (no date) (unknown) [facility]) Result panel 203 (unknown) (no date) (unknown) [facility]) Result panel 204 (unknown) (no date) (unknown) [facility]) Result panel 205 (unknown) (no date) (unknown) [facility]) Result panel 206 (unknown) (no date) (unknown) [facility]) Result panel 207 (unknown) (no date) (unknown) [facility]) Result panel 208 (unknown) (no date) (unknown) [facility]) Result panel 209 (unknown) (no date) (unknown) [facility]) Result panel 210 (unknown) (no date) (unknown) [facility]) Result panel 211 (unknown) (no date) (unknown) [facility] Result panel 212 (unknown) (no date) (unknown) [facility]) Result panel 213 (unknown) (no date) (unknown) [facility]) Result panel 214 (unknown) (no date) (unknown) [facility]) Result panel 215 (unknown) (no date) (unknown) [facility]) Result panel 216 (unknown) (no date) (unknown) [facility]) Result panel 217 (unknown) (no date) (unknown) [facility]) Result panel 218 (unknown) (no date) (unknown) [facility]) Result panel 219 (unknown) (no date) (unknown) [facility]) Result panel 220 (unknown) (no date) (unknown) [facility]) Result panel 221 (unknown) (no date) (unknown) [facility]) Result panel 222 (unknown) (no date) (unknown) [facility]) Result panel 223 (unknown) (no date) (unknown) [facility]) Result panel 224 (unknown) (no date) (unknown) [facility]) Result panel 225 (unknown) (no date) (unknown) [facility]) Result panel 226 (unknown) (no date) (unknown) [facility]) Result panel 227 (unknown) (no date) (unknown) [facility]) Result panel 228 (unknown) (no date) (unknown) [facility]) Result panel 229 (unknown) (no date) (unknown) [facility]) Result panel 230 (unknown) (no date) (unknown) [facility]) Result panel 231 (unknown) (no date) (unknown) [facility]) Result panel 232 (unknown) (no date) (unknown) [facility]) Result panel 233 (unknown) (no date) (unknown) [facility]) Result panel 234 (unknown) (no date) (unknown) [facility]) Result panel 235 (unknown) (no date) (unknown) [facility]) Result panel 236 (unknown) (no date) (unknown) [facility]) Result panel 237 (unknown) (no date) (unknown) [facility]) Result panel 238 (unknown) (no date) (unknown) [facility]) Result panel 239 (unknown) (no date) (unknown) [facility]) Result panel 240 (unknown) (no date) (unknown) [facility]) Result panel 241 (unknown) (no date) (unknown) [facility]) Result panel 242 (unknown) (no date) (unknown) [facility]) Result panel 243 (unknown) (no date) (unknown) [facility]) Result panel 244 (unknown) (no date) (unknown) [facility]) Result panel 245 (unknown) (no date) (unknown) [facility]) Result panel 246 (unknown) (no date) (unknown) [facility]) Result panel 247 (unknown) (no date) (unknown) [facility]) Result panel 248 (unknown) (no date) (unknown) [facility]) Result panel 249 (unknown) (no date) (unknown) [facility]) Result panel 250 (unknown) (no date) (unknown) [facility]) Result panel 251 (unknown) (no date) (unknown) [facility]) Result panel 252 (unknown) (no date) (unknown) [facility]) Result panel 253 (unknown) (no date) (unknown) [facility]) Result panel 254 (unknown) (no date) (unknown) [facility]) Result panel 255 (unknown) (no date) (unknown) [facility]) Result panel 256 (unknown) (no date) (unknown) [facility]) Result panel 257 (unknown) (no date) (unknown) [facility]) Result panel 258 (unknown) (no date) (unknown) [facility]) Result panel 259 (unknown) (no date) (unknown) [facility]) Result panel 260 (unknown) (no date) (unknown) [facility]) Result panel 261 (unknown) (no date) (unknown) [facility]) Result panel 262 (unknown) (no date) (unknown) [facility]) Result panel 263 (unknown) (no date) (unknown) [facility]) Result panel 264 (unknown) (no date) (unknown) [facility]) Result panel 265 (unknown) (no date) (unknown) [facility]) Result panel 266 (unknown) (no date) (unknown) [facility]) Result panel 267 (unknown) (no date) (unknown) [facility]) Result panel 268 (unknown) (no date) (unknown) [facility]) Result panel 269 (unknown) (no date) (unknown) [facility]) Result panel 270 (unknown) (no date) (unknown) [facility]) Result panel 271 (unknown) (no date) (unknown) [facility]) Result panel 272 (unknown) (no date) (unknown) [facility]) Result panel 273 (unknown) (no date) (unknown) [facility]) Result panel 274 (unknown) (no date) (unknown) [facility]) Result panel 275 (unknown) (no date) (unknown) [facility]) Result panel 276 (unknown) (no date) (unknown) [facility]) Result panel 277 (unknown) (no date) (unknown) [facility]) Result panel 278 (unknown) (no date) (unknown) [facility]) Result panel 279 (unknown) (no date) (unknown) [facility]) Result panel 280 (unknown) (no date) (unknown) [facility]) Result panel 281 (unknown) (no date) (unknown) [facility]) Result panel 282 (unknown) (no date) (unknown) [facility]) Result panel 283 (unknown) (no date) (unknown) [facility]) Result panel 284 (unknown) (no date) (unknown) [facility]) Result panel 285 (unknown) (no date) (unknown) [facility]) Result panel 286 (unknown) (no date) (unknown) [facility]) Result panel 287 (unknown) (no date) (unknown) [facility]) Result panel 288 (unknown) (no date) (unknown[facility]) Result panel 289 (unknown) (no date) (unknown) [facility]) Result panel 290 (unknown) (no date) (unknown) [facility]) Result panel 291 (unknown) (no date) (unknown) [facility]) Result panel 292 (unknown) (no date) (unknown) [facility]) Result panel 293 (unknown) (no date) (unknown) [facility]) Result panel 294 (unknown) (no date) (unknown) [facility]) Result panel 295 (unknown) (no date) (unknown) [facility]) Result panel 296 (unknown) (no date) (unknown) [facility]) Result panel 297 (unknown) (no date) (unknown) [facility]) Result panel 298 (unknown) (no date) (unknown) [facility]) Result panel 299 (unknown) (no date) (unknown) [facility]) Result panel 300 (unknown) (no date) (unknown) [facility]) Result panel 301 (unknown) (no date) (unknown) [facility]) Result panel 302 (unknown) (no date) (unknown) [facility]) Result panel 303 (unknown) (no date) (unknown) [facility]) Result panel 304 (unknown) (no date) (unknown) [facility]) Result panel 305 (unknown) (no date) (unknown) [facility]) Result panel 306 (unknown) (no date) (unknown) [facility]) Result panel 307 (unknown) (no date) (unknown) [facility]) Result panel 308 (unknown) (no date) (unknown) [facility]) Result panel 309 (unknown) (no date) (unknown) [facility]) Result panel 310 (unknown) (no date) (unknown[facility]) Result panel 311 (unknown) (no date) (unknown[facility]) Result panel 312 (unknown) (no date) (unknown) [facility]) Result panel 313 (unknown) (no date) (unknown) [facility]) Result panel 314 (unknown) (no date) (unknown) [facility]) Result panel 315 (unknown) (no date) (unknown) [facility]) Result panel 316 (unknown) (no date) (unknown) [facility]) Result panel 317 (unknown) (no date) (unknown) [facility]) Result panel 318 (unknown) (no date) (unknown) [facility]) Result panel 319 (unknown) (no date) (unknown) [facility]) Result panel 320 (unknown) (no date) (unknown) [facility]) Result panel 321 (unknown) (no date) (unknown) [facility]) Result panel 322 (unknown) (no date) (unknown) [facility]) Result panel 323 (unknown) (no date) (unknown) [facility]) Result panel 324 (unknown) (no date) (unknown) [facility]) Result panel 325 (unknown) (no date) (unknown) [facility]) Result panel 326 (unknown) (no date) (unknown) [facility]) Result panel 327 (unknown) (no date) (unknown) [facility]) Result panel 328 (unknown) (no date) (unknown) [facility]) Result panel 329 (unknown) (no date) (unknown) [facility]) Result panel 330 (unknown) (no date) (unknown) [facility]) Result panel 331 (unknown) (no date) (unknown) [facility]) Result panel 332 (unknown) (no date) (unknown) [facility]) Result panel 333 (unknown) (no date) (unknown) [facility]) Result panel 334 (unknown) (no date) (unknown) [facility]) Result panel 335 (unknown) (no date) (unknown) [facility]) Result panel 336 (unknown) (no date) (unknown) [facility]) Result panel 337 (unknown) (no date) (unknown) [facility]) Result panel 338 (unknown) (no date) (unknown) [facility]) Result panel 339 (unknown) (no date) (unknown) [facility]) Result panel 340 (unknown) (no date) (unknown) [facility]) Result panel 341 (unknown) (no date) (unknown) [facility]) Result panel 342 (unknown) (no date) (unknown) [facility]) Result panel 343 (unknown) (no date) (unknown) [facility]) Result panel 344 (unknown) (no date) (unknown) [facility]) Result panel 345 (unknown) (no date) (unknown) [facility]) Result panel 346 (unknown) (no date) (unknown) [facility]) Result panel 347 (unknown) (no date) (unknown) [facility]) Result panel 348 (unknown) (no date) (unknown) [facility]) Result panel 349 (unknown) (no date) (unknown) [facility]) Result panel 350 (unknown) (no date) (unknown) [facility]) Result panel 351 (unknown) (no date) (unknown) [facility]) Result panel 352 (unknown) (no date) (unknown) [facility]) Result panel 353 (unknown) (no date) (unknown) [facility]) Result panel 354 (unknown) (no date) (unknown) [facility]) Result panel 355 (unknown) (no date) (unknown) [facility]) Result panel 356 (unknown) (no date) (unknown) [facility]) Result panel 357 (unknown) (no date) (unknown) [facility]) Result panel 358 (unknown) (no date) (unknown) [facility]) Result panel 359 (unknown) (no date) (unknown) [facility]) Result panel 360 (unknown) (no date) (unknown) [facility]) Result panel 361 (unknown) (no date) (unknown) [facility]) Result panel 362 (unknown) (no date) (unknown) [facility]) Result panel 363 (unknown) (no date) (unknown) [facility]) Result panel 364 (unknown) (no date) (unknown) [facility]) Result panel 365 (unknown) (no date) (unknown) [facility]) Result panel 366 (unknown) (no date) (unknown) [facility]) Result panel 367 (unknown) (no date) (unknown) [facility]) Result panel 368 (unknown) (no date) (unknown) [facility]) Result panel 369 (unknown) (no date) (unknown) [facility]) Result panel 370 (unknown) (no date) (unknown) [facility]) Result panel 371 (unknown) (no date) (unknown) [facility]) Result panel 372 (unknown) (no date) (unknown) [facility]) Result panel 373 (unknown) (no date) (unknown) [facility]) Result panel 374 (unknown) (no date) (unknown) [facility]) Result panel 375 (unknown) (no date) (unknown) [facility]) Result panel 376 (unknown) (no date) (unknown) [facility]) Result panel 377 (unknown) (no date) (unknown) [facility]) Result panel 378 (unknown) (no date) (unknown) [facility]) Result panel 379 (unknown) (no date) (unknown) [facility]) Result panel 380 (unknown) (no date) (unknown) [facility]) Result panel 381 (unknown) (no date) (unknown) [facility]) Result panel 382 (unknown) (no date) (unknown) [facility]) Result panel 383 (unknown) (no date) (unknown) [facility]) Result panel 384 (unknown) (no date) (unknown) [facility]) Result panel 385 (unknown) (no date) (unknown) [facility]) Result panel 386 (unknown) (no date) (unknown) [facility]) Result panel 387 (unknown) (no date) (unknown) [facility]) Result panel 388 (unknown) (no date) (unknown) [facility]) Result panel 389 (unknown) (no date) (unknown) [facility]) Result panel 390 (unknown) (no date) (unknown) [facility]) Result panel 391 (unknown) (no date) (unknown) [facility]) Result panel 392 (unknown) (no date) (unknown) [facility]) Result panel 393 (unknown) (no date) (unknown) [facility]) Result panel 394 (unknown) (no date) (unknown) [facility]) Result panel 395 (unknown) (no date) (unknown) [facility]) Result panel 396 (unknown) (no date) (unknown) [facility]) Result panel 397 (unknown) (no date) (unknown) [facility]) Result panel 398 (unknown) (no date) (unknown) [facility]) Result panel 399 (unknown) (no date) (unknown) [facility]) Result panel 400 (unknown) (no date) (unknown) [facility]) Result panel 401 (unknown) (no date) (unknown) [facility]) Result panel 402 (unknown) (no date) (unknown) [facility]) Result panel 403 (unknown) (no date) (unknown) [facility]) Result panel 404 (unknown) (no date) (unknown) [facility] Result panel 405 (unknown) (no date) (unknown) [facility] [facility] Result panel 406 (unknown) (no date) (unknown) [facility]) Result panel 407 (unknown) (no date) (unknown) [facility] Result panel 408 (unknown) (no date) (unknown) [facility] Result panel 409 (unknown) (no date) (unknown) [facility] Result panel 410 (unknown) (no date) (unknown) [facility] Result panel 411 (unknown) (no date) (unknown) [facility] Result panel 412 (unknown) (no date) (unknown) [facility] Result panel 413 (unknown) (no date) (unknown) [facility] Result panel 414 (unknown) (no date) (unknown) [facility] Result panel 415 (unknown) (no date) (unknown) [facility] Result panel 416 (unknown) (no date) (unknown) [facility] Result panel 417 (unknown) (no date) (unknown) [facility] Result panel 418 (unknown) (no date) (unknown) [facility] Result panel 419 (unknown) (no date) (unknown) [facility] Result panel 420 (unknown) (no date) (unknown) [facility] Result panel 421 (unknown) (no date) (unknown) [facility] Result panel 422 (unknown) (no date) (unknown) [facility] Result panel 423 (unknown) (no date) (unknown) [facility] Result panel 424 (unknown) (no date) (unknown) [facility] Result panel 425 (unknown) (no date) (unknown) [facility] Result panel 426 (unknown) (no date) (unknown) [facility] Result panel 427 (unknown) (no date) (unknown) [facility] Result panel 428 (unknown) (no date) (unknown) [facility] Result panel 429 (unknown) (no date) (unknown) [facility] Result panel 430 (unknown) (no date) (unknown) [facility] Result panel 431 (unknown) (no date) (unknown) [facility] Result panel 432 (unknown) (no date) (unknown) [facility] Result panel 433 (unknown) (no date) (unknown) [facility] Result panel 434 (unknown) (no date) (unknown) [facility] Result panel 435 (unknown) (no date) (unknown) [facility] Result panel 436 (unknown) (no date) (unknown) [facility] Result panel 437 (unknown) (no date) (unknown) [facility] Result panel 438 (unknown) (no date) (unknown) [facility] Result panel 439 (unknown) (no date) (unknown) [facility] Result panel 440 (unknown) (no date) (unknown) [facility] Result panel 441 (unknown) (no date) (unknown) [facility] Result panel 442 (unknown) (no date) (unknown) [facility] Result panel 443 (unknown) (no date) (unknown) [facility] Result panel 444 (unknown) (no date) (unknown) [facility]) Result panel 445 (unknown) (no date) (unknown) [facility] Result panel 446 (unknown) (no date) (unknown) [facility] Result panel 447 (unknown) (no date) (unknown) [facility] Result panel 448 (unknown) (no date) (unknown) [facility] Result panel 449 (unknown) (no date) (unknown) [facility] Result panel 450 (unknown) (no date) (unknown) [facility] Result panel 451 (unknown) (no date) (unknown) [facility] Result panel 452 (unknown) (no date) (unknown) [facility] Result panel 453 (unknown) (no date) (unknown) [facility] Result panel 454 (unknown) (no date) (unknown) [facility] Result panel 455 (unknown) (no date) (unknown) [facility] Result panel 456 (unknown) (no date) (unknown) [facility] Result panel 457 (unknown) (no date) (unknown) [facility] Result panel 458 (unknown) (no date) (unknown) [facility] Result panel 459 (unknown) (no date) (unknown) [facility] Result panel 460 (unknown) (no date) (unknown) [facility] Result panel 461 (unknown) (no date) (unknown) [facility] Result panel 462 (unknown) (no date) (unknown) [facility] Result panel 463 (unknown) (no date) (unknown) [facility] Result panel 464 (unknown) (no date) (unknown) [facility] Result panel 465 (unknown) (no date) (unknown) [facility] Result panel 466 (unknown) (no date) (unknown) [facility] Result panel 467 (unknown) (no date) (unknown) [facility] Result panel 468 (unknown) (no date) (unknown) [facility] Result panel 469 (unknown) (no date) (unknown) [facility]) Result panel 470 (unknown) (no date) (unknown) [facility] Result panel 471 (unknown) (no date) (unknown) [facility] Result panel 472 (unknown) (no date) (unknown) [facility]) Result panel 473 (unknown) (no date) (unknown) [facility] Result panel 474 (unknown) (no date) (unknown) [facility] Result panel 475 (unknown) (no date) (unknown) [facility] Result panel 476 (unknown) (no date) (unknown) [facility] Result panel 477 (unknown) (no date) (unknown) [facility]) Result panel 478 (unknown) (no date) (unknown) [facility] Result panel 479 (unknown) (no date) (unknown) [facility] Result panel 480 (unknown) (no date) (unknown) [facility] Result panel 481 (unknown) (no date) (unknown) [facility]) Result panel 482 (unknown) (no date) (unknown) [facility]) Result panel 483 (unknown) (no date) (unknown) [facility]) Result panel 484 (unknown) (no date) (unknown) [facility]) Result panel 485 (unknown) (no date) (unknown) [facility] Result panel 486 (unknown) (no date) (unknown) [facility]) Result panel 487 (unknown) (no date) (unknown) [facility]) Result panel 488 (unknown) (no date) (unknown) [facility] Result panel 489 (unknown) (no date) (unknown) [facility]) Result panel 490 (unknown) (no date) (unknown) [facility]) Result panel 491 (unknown) (no date) (unknown) [facility]) Result panel 492 (unknown) (no date) (unknown) [facility] Result panel 493 (unknown) (no date) (unknown) [facility]) Result panel 494 (unknown) (no date) (unknown) [facility]) Result panel 495 (unknown) (no date) (unknown) [facility] Result panel 496 (unknown) (no date) (unknown) [facility]) Result panel 497 (unknown) (no date) (unknown) [facility]) Result panel 498 (unknown) (no date) (unknown) [facility]) Result panel 499 (unknown) (no date) (unknown) [facility]) Result panel 500 (unknown) (no date) (unknown) [facility]) Result panel 501 (unknown) (no date) (unknown) [facility]) Result panel 502 (unknown) (no date) (unknown) [facility]) Result panel 503 (unknown) (no date) (unknown) [facility]) Result panel 504 (unknown) (no date) (unknown) [facility]) Result panel 505 (unknown) (no date) (unknown) [facility]) Result panel 506 (unknown) (no date) (unknown) [facility]) Result panel 507 (unknown) (no date) (unknown) [facility]) Result panel 508 (unknown) (no date) (unknown) [facility] Result panel 509 (unknown) (no date) (unknown) [facility]) Result panel 510 (unknown) (no date) (unknown) [facility]) Result panel 511 (unknown) (no date) (unknown) [facility]) Result panel 512 (unknown) (no date) (unknown) [facility]) Result panel 513 (unknown) (no date) (unknown) [facility]) Result panel 514 (unknown) (no date) (unknown) [facility] Result panel 515 (unknown) (no date) (unknown) [facility]) Result panel 516 (unknown) (no date) (unknown) [facility]) Result panel 517 (unknown) (no date) (unknown) [facility]) Result panel 518 (unknown) (no date) (unknown) [facility] Result panel 519 (unknown) (no date) (unknown) [facility]) Result panel 520 (unknown) (no date) (unknown) [facility]) Result panel 521 (unknown) (no date) (unknown) [facility]) Result panel 522 (unknown) (no date) (unknown) [facility]) Result panel 523 (unknown) (no date) (unknown) [facility]) Result panel 524 (unknown) (no date) (unknown) [facility]) Result panel 525 (unknown) (no date) (unknown) [facility]) Result panel 526 (unknown) (no date) (unknown) [facility]) Result panel 527 (unknown) (no date) (unknown) [facility]) Result panel 528 (unknown) (no date) (unknown) [facility]) Result panel 529 (unknown) (no date) (unknown) [facility]) Result panel 530 (unknown) (no date) (unknown) [facility]) Result panel 531 (unknown) (no date) (unknown) [facility]) Result panel 532 (unknown) (no date) (unknown) [facility]) Result panel 533 (unknown) (no date) (unknown) [facility]) Result panel 534 (unknown) (no date) (unknown) [facility] Result panel 535 (unknown) (no date) (unknown) [facility]) Result panel 536 (unknown) (no date) (unknown) [facility]) Result panel 537 (unknown) (no date) (unknown) [facility]) Result panel 538 (unknown) (no date) (unknown) [facility]) Result panel 539 (unknown) (no date) (unknown) [facility]) Result panel 540 (unknown) (no date) (unknown) [facility]) Result panel 541 (unknown) (no date) (unknown) [facility]) Result panel 542 (unknown) (no date) (unknown) [facility]) Result panel 543 (unknown) (no date) (unknown) [facility]) Result panel 544 (unknown) (no date) (unknown) [facility]) Result panel 545 (unknown) (no date) (unknown) [facility]) Result panel 546 (unknown) (no date) (unknown) [facility]) Result panel 547 (unknown) (no date) (unknown) [facility]) Result panel 548 (unknown) (no date) (unknown) [facility]) Result panel 549 (unknown) (no date) (unknown) [facility]) Result panel 550 (unknown) (no date) (unknown) [facility]) Result panel 551 (unknown) (no date) (unknown) [facility]) Result panel 552 (unknown) (no date) (unknown) [facility]) Result panel 553 (unknown) (no date) (unknown) [facility]) Result panel 554 (unknown) (no date) (unknown) [facility]) Result panel 555 (unknown) (no date) (unknown) (unknown) (no value) (units (un known) unknown) (unknown) (no date) (unknown) (unknown) 03/28/22 (units (unkn own) unknown) (unknown) (no date) (unknown) (unknown) [address] (units (unk nown) [address] unknown) (unknown) (no date) (unknown) (unknown) [id number] (units (unkn own) unknown) (unknown) (no date) (unknown) (unknown) Accession (units (unk nown) Number: unknown) [id number] (unknown) (no date) (unknown) (unknown) Age/Sex: 66 / (units (unknown) M Date of unknown) Service: (unknown) (no date) (unknown) (unknown) [place] (units (unknown) [id number] unknown) (unknown) (no date) (unknown) (unknown) Approved by: (units ( unknown) Michele Call, unknown) MWilliam on 03/28/2022 at 19:24 (unknown) (no date) (unknown) (unknown) Bones and (units (unk nown) chest wall: No unknown) suspicious bony lesions. Prior left clavicle (unknown) (no date) (unknown) (unknown) COMPARISON: (units (u nknown) [place] unknown) [facility], CR, XR CHEST 1V, 10/31/2020, 23:19. (unknown) (no date) (unknown) (unknown) : (units (unkn own) 1955 unknown) Acct:[id number] (unknown) (no date) (unknown) (unknown) Dictated by: (units ( unknown) Michele Call, unknown) M.Tyson on 03/28/2022 at 19:23 (unknown) (no date) (unknown) (unknown) FINDINGS: (units (unk nown) unknown) (unknown) (no date) (unknown) (unknown) IMPRESSION: (units (u nknown) unknown) (unknown) (no date) (unknown) (unknown) INDICATIONS: (units ( unknown) chest pain unknown) (unknown) (no date) (unknown) (unknown) [facility] (unknown) (no date) (unknown) (unknown) Loc: ED (units (unkn own) unknown) (unknown) (no date) (unknown) (unknown) Lungs and (units (unk nown) pleura: Lungs unknown) are clear. No pleural effusions or pneumothorax. (unknown) (no date) (unknown) (unknown) Mediastinum: (units ( unknown) Mediastinal unknown) contours appear normal. Heart size is normal. (unknown) (no date) (unknown) (unknown) No acute (units (unkn own) osseous unknown) abnormality. (unknown) (no date) (unknown) (unknown) Ordering (units (unkn own) Provider: unknown) Fausto Padgett D.O. (unknown) (no date) (unknown) (unknown) Overlying soft (units (unknown) tissues appear unknown) unremarkable. (unknown) (no date) (unknown) (unknown) PROCEDURE: XR (units (unknown) CHEST 1V unknown) (unknown) (no date) (unknown) (unknown) Patient: (units (unkn own) Frank Chan unknown) MR#: [id number] (unknown) (no date) (unknown) (unknown) Procedure: XR (units (unknown) chest 1V unknown) (unknown) (no date) (unknown) (unknown) Signed (units (unkn own) unknown) (unknown) (no date) (unknown) (unknown) Surgical (units (unkn own) changes and unknown) devices: None. (unknown) (no date) (unknown) (unknown) TECHNIQUE: One (units (unknown) view of the unknown) chest was acquired. (unknown) (no date) (unknown) (unknown) XRay Report (units (u nknown) unknown) (unknown) (no date) (unknown) (unknown) fracture. (units (unk nown) unknown) Result panel 556 (unknown) (no (unknown) (unknown) (no value) (units (unk nown) date) unknown) (unknown) (no (unknown) (unknown) 03/28/22 18:47 (units (unknown) date) unknown) (unknown) (no (unknown) (unknown) 134 mg PO DAILY (units (unknown) date) unknown) (unknown) (no (unknown) (unknown) 25 mg PO DAILY (units (unknown) date) unknown) (unknown) (no (unknown) (unknown) 2847 (units (unkno wn) date) unknown) (unknown) (no (unknown) (unknown) 40 mg PO BID (units (u nknown) date) Qty: 0 0RF unknown) (unknown) (no (unknown) (unknown) 40 mg PO DAILY (units (unknown) date) unknown) (unknown) (no (unknown) (unknown) 5 MG PO Q8HR As (units (unknown) date) Needed for Pain unknown) (unknown) (no (unknown) (unknown) 5 mg PO Q8HR PRN (units (unknown) date) (Reason: Pain.) unknown) (unknown) (no (unknown) (unknown) 500 mg PO BID (units ( unknown) date) unknown) (unknown) (no (unknown) (unknown) 81 mg PO DAILY (units (unknown) date) unknown) (unknown) (no (unknown) (unknown) Age/Sex: 66 / M (units (unknown) date) unknown) (unknown) (no (unknown) (unknown) Allergies (units (unkn own) date) unknown) (unknown) (no (unknown) (unknown) Allergy/AdvReac (units (unknown) date) Type Severity unknown) Reaction Status Date / Time (unknown) (no (unknown) (unknown) Aspirin Child 81 (units (unknown) date) mg PO DAILY unknown) 11/01/20 11/01/20 (unknown) (no (unknown) (unknown) Aspirin Child (units ( unknown) date) tablet unknown) (unknown) (no (unknown) (unknown) Complete Blood (units (unknown) date) Count AUTO DIFF unknown) Stat (unknown) (no (unknown) (unknown) Comprehensive (units ( unknown) date) Metabolic Panel unknown) Stat (unknown) (no (unknown) (unknown) Coronary artery (units (unknown) date) disease unknown) (unknown) (no (unknown) (unknown) Course (units (unkno wn) date) unknown) (unknown) (no (unknown) (unknown) : 1955 (units (unknown) date) Acct:[id number] unknown) (unknown) (no (unknown) (unknown) Date of Service: (units (unknown) date) 03/28/22 unknown) (unknown) (no (unknown) (unknown) Departure (units (unkn own) date) unknown) (unknown) (no (unknown) (unknown) Diabetes type 2, (units (unknown) date) uncontrolled unknown) (unknown) (no (unknown) (unknown) Discharge Plan (units (unknown) date) unknown) (unknown) (no (unknown) (unknown) Discontinued (units (u nknown) date) Medications unknown) (unknown) (no (unknown) (unknown) ED Orders (units (unkn own) date) unknown) (unknown) (no (unknown) (unknown) EKG-12 Lead Stat (units (unknown) date) unknown) (unknown) (no (unknown) (unknown) ER Physician: (units ( unknown) date) Fausto Padgett unknown) D.O. (unknown) (no (unknown) (unknown) Elevated blood (units (unknown) date) alcohol level unknown) (unknown) (no (unknown) (unknown) Emergency Report (units (unknown) date) unknown) (unknown) (no (unknown) (unknown) Family History (units (unknown) date) (Updated 11/01/20 unknown) @ 06:42 by GRACY Dick) (unknown) (no (unknown) (unknown) Father (units (unknown) date) Lung cancer unknown) (unknown) (no (unknown) (unknown) General (units (unkno wn) date) unknown) (unknown) (no (unknown) (unknown) H/O heart artery (units (unknown) date) stent unknown) (unknown) (no (unknown) (unknown) HPI - General (units ( unknown) date) Adult unknown) (unknown) (no (unknown) (unknown) Home Medications (units (unknown) date) unknown) (unknown) (no (unknown) (unknown) [facility] (units (unknown) date) [address] [place] [address] unknown) [place] [address] (unknown) (no (unknown) (unknown) Label Comments: (units (unknown) date) unknown) (unknown) (no (unknown) (unknown) Lidocaine HCl (units ( unknown) date) (Lidocaine 2% unknown) (Glydo) 6 Ml Gel) 6 ml TOP NOW ONE (unknown) (no (unknown) (unknown) Lipase Stat (units (un known) date) unknown) (unknown) (no (unknown) (unknown) Magnesium Stat (units (unknown) date) unknown) (unknown) (no (unknown) (unknown) Medical History (units (unknown) date) (Updated 11/01/20 unknown) @ 07:58 by GRACY Dick) (unknown) (no (unknown) (unknown) Medication (units (unk nown) date) Instructions unknown) Recorded Confirmed (unknown) (no (unknown) (unknown) Medication (units (unk nown) date) Instructions unknown) Recorded (unknown) (no (unknown) (unknown) Mother Medical (units (unknown) date) history unknown unknown) (unknown) (no (unknown) (unknown) No Action (units (unkn own) date) unknown) (unknown) (no (unknown) (unknown) No Known Drug (units ( unknown) date) Allergies Allergy unknown) Verified 10/31/20 23:10 (unknown) (no (unknown) (unknown) Ordered: (units (unkno wn) date) unknown) (unknown) (no (unknown) (unknown) Orders (units (unkno wn) date) unknown) (unknown) (no (unknown) (unknown) Patient History (units (unknown) date) unknown) (unknown) (no (unknown) (unknown) Patient: (units (unkno wn) date) Frank Chan MR#: unknown) [id number] (unknown) (no (unknown) (unknown) Prescriptions: (units (unknown) date) unknown) (unknown) (no (unknown) (unknown) Previous Rx's (units ( unknown) date) unknown) (unknown) (no (unknown) (unknown) Related Data (units (u nknown) date) unknown) (unknown) (no (unknown) (unknown) Signed By: (units (unk nown) date) unknown) (unknown) (no (unknown) (unknown) Smoking Status: (units (unknown) date) Current every day unknown) smoker (unknown) (no (unknown) (unknown) Social History (units (unknown) date) (Reviewed unknown) 11/01/20 @ 00:30 by Nico Roche MD) (unknown) (no (unknown) (unknown) Stated (units (unkno wn) date) complaint: unknown) Bilateral LE, pelvis and chest wall pain (unknown) (no (unknown) (unknown) Stop: 03/28/22 (units (unknown) date) 18:44 unknown) (unknown) (no (unknown) (unknown) Substance Use (units ( unknown) date) Type: does not unknown) use (unknown) (no (unknown) (unknown) Surgical History (units (unknown) date) (Updated 11/01/20 unknown) @ 00:30 by Nico Roche MD) (unknown) (no (unknown) (unknown) Time Seen by (units (u nknown) date) Provider: unknown) 03/28/22 18:45 (unknown) (no (unknown) (unknown) Troponin + CK (units ( unknown) date) Cardiac Panel unknown) Stat (unknown) (no (unknown) (unknown) XR chest 1V Stat (units (unknown) date) unknown) (unknown) (no (unknown) (unknown) alcohol intake: (units (unknown) date) former unknown) (unknown) (no (unknown) (unknown) atorvastatin 40 (units (unknown) date) mg tablet unknown) (Lipitor) 40 mg PO DAILY 10/31/20 11/01/20 (unknown) (no (unknown) (unknown) atorvastatin (units (u nknown) date) [Lipitor] 40 mg unknown) tablet (unknown) (no (unknown) (unknown) capsule (units (unkno wn) date) unknown) (unknown) (no (unknown) (unknown) fenofibrate (units (un known) date) micronized 134 mg unknown) 134 mg PO DAILY 11/01/20 11/01/20 (unknown) (no (unknown) (unknown) fenofibrate (units (un known) date) micronized 134 mg unknown) capsule (unknown) (no (unknown) (unknown) household (units (unkn own) date) members: unknown) significant other (unknown) (no (unknown) (unknown) last taken was 4 (units (unknown) date) weeks ago. unknown) (unknown) (no (unknown) (unknown) metformin 500 mg (units (unknown) date) tablet 500 mg PO unknown) BID 10/31/20 11/01/20 (unknown) (no (unknown) (unknown) metformin 500 mg (units (unknown) date) tablet unknown) (unknown) (no (unknown) (unknown) metoprolol (units (unk nown) date) succinate 25 mg unknown) 25 mg PO DAILY 10/31/20 11/01/20 (unknown) (no (unknown) (unknown) metoprolol (units (unk nown) date) succinate 25 mg unknown) tablet extended release 24 hr (unknown) (no (unknown) (unknown) oxycodone 5 mg (units (unknown) date) tablet 5 mg PO unknown) Q8HR PRN Pain. 10/31/20 11/01/20 (unknown) (no (unknown) (unknown) oxycodone 5 mg (units (unknown) date) tablet unknown) (unknown) (no (unknown) (unknown) pantoprazole 40 (units (unknown) date) mg PO BID ##0 unknown) 11/01/20 (unknown) (no (unknown) (unknown) pantoprazole (units (u nknown) date) tablet unknown) (unknown) (no (unknown) (unknown) tablet,extended (units (unknown) date) release 24 hr unknown) (unknown) (no (unknown) (unknown) took it 4 weeks (units (unknown) date) ago. unknown) Result panel 557 (unknown) (no date) (unknown) (unknown) 0 /ul (unkn own) (unknown) (no date) (unknown) (unknown) 0.8 % (unkn own) (unknown) (no date) (unknown) (unknown) 100 /ul (unkn own) (unknown) (no date) (unknown) (unknown) 14.1 % (unkn own) (unknown) (no date) (unknown) (unknown) 154 x10 3/ul (unkn own) (unknown) (no date) (unknown) (unknown) 16.8 g/dl (unkn own) (unknown) (no date) (unknown) (unknown) 2.0 % (unkn own) (unknown) (no date) (unknown) (unknown) 2200 /ul (unkn own) (unknown) (no date) (unknown) (unknown) 30.7 pg (unkn own) (unknown) (no date) (unknown) (unknown) 34.0 % (unkn own) (unknown) (no date) (unknown) (unknown) 35.2 % (unkn own) (unknown) (no date) (unknown) (unknown) 3700 /ul (unkn own) (unknown) (no date) (unknown) (unknown) 400 /ul (unkn own) (unknown) (no date) (unknown) (unknown) 47.6 % (unkn own) (unknown) (no date) (unknown) (unknown) 5.46 x10 6/ul (unkn own) (unknown) (no date) (unknown) (unknown) 56.9 % (unkn own) (unknown) (no date) (unknown) (unknown) 6.3 % (unkn own) (unknown) (no date) (unknown) (unknown) 6.5 x10 3/ul (unkn own) (unknown) (no date) (unknown) (unknown) 87.2 fl (unkn own) Result panel 558 (unknown) (no date) (unknown) (unknown) <=1.005 (units (unkn own) unknown) (unknown) (no date) (unknown) (unknown) 0.2 e.u./dl (unkn own) (unknown) (no date) (unknown) (unknown) 3 g/dl (unkn own) (unknown) (no date) (unknown) (unknown) 5.0 (units (unkn own) unknown) (unknown) (no date) (unknown) (unknown) CLEAR (units (unkn own) unknown) (unknown) (no date) (unknown) (unknown) NEGATIVE (units (unkn own) unknown) (unknown) (no date) (unknown) (unknown) YELLOW (units (unkn own) unknown) (unknown) (no date) (unknown) (unknown) YELLOW (units (unkn own) unknown) Result panel 559 (unknown) (no date) (unknown) (unknown) <=1.005 (units (unkn own) unknown) (unknown) (no date) (unknown) (unknown) 0-1/HPF (units (unkn own) unknown) (unknown) (no date) (unknown) (unknown) 0.2 e.u./dl (unkn own) (unknown) (no date) (unknown) (unknown) 1 (units (unkn own) unknown) (unknown) (no date) (unknown) (unknown) 3 g/dl (unkn own) (unknown) (no date) (unknown) (unknown) 5.0 (units (unkn own) unknown) (unknown) (no date) (unknown) (unknown) CLEAR (units (unkn own) unknown) (unknown) (no date) (unknown) (unknown) Cult Not (units (unkn own) Indicated unknown) (unknown) (no date) (unknown) (unknown) NEGATIVE (units (unkn own) unknown) (unknown) (no date) (unknown) (unknown) None Seen (units (unk nown) unknown) (unknown) (no date) (unknown) (unknown) None Seen (units (unk nown) unknown) (unknown) (no date) (unknown) (unknown) YELLOW (units (unkn own) unknown) (unknown) (no date) (unknown) (unknown) YELLOW (units (unkn own) unknown) Result panel 560 (unknown) (no date) (unknown) (unknown) > 60 ml/min (unkn own) (unknown) (no date) (unknown) (unknown) > 60 ml/min (unkn own) (unknown) (no date) (unknown) (unknown) <=1.005 (units (unkn own) unknown) (unknown) (no date) (unknown) (unknown) 0-1/HPF (units (unkn own) unknown) (unknown) (no date) (unknown) (unknown) 0.2 e.u./dl (unkn own) (unknown) (no date) (unknown) (unknown) 0.71 mg/dl (unkn own) (unknown) (no date) (unknown) (unknown) 1 (units (unkn own) unknown) (unknown) (no date) (unknown) (unknown) 1.1 mg/dl (unkn own) (unknown) (no date) (unknown) (unknown) 1.3 (units (unkn own) unknown) (unknown) (no date) (unknown) (unknown) 1.8 mg/dl (unkn own) (unknown) (no date) (unknown) (unknown) 105 mmol/l (unkn own) (unknown) (no date) (unknown) (unknown) 129 u/l (unkn own) (unknown) (no date) (unknown) (unknown) 138 mmol/l (unkn own) (unknown) (no date) (unknown) (unknown) 17 mmol/l (unkn own) (unknown) (no date) (unknown) (unknown) 3 g/dl (unkn own) (unknown) (no date) (unknown) (unknown) 3.3 g/dl (unkn own) (unknown) (no date) (unknown) (unknown) 38 u/l (unkn own) (unknown) (no date) (unknown) (unknown) 390 mg/dl (unkn own) (unknown) (no date) (unknown) (unknown) 390 mg/dl (unkn own) (unknown) (no date) (unknown) (unknown) 4.3 g/dl (unkn own) (unknown) (no date) (unknown) (unknown) 5 mg/dl (unkn own) (unknown) (no date) (unknown) (unknown) 5.0 (units (unkn own) unknown) (unknown) (no date) (unknown) (unknown) 5.4 mmol/l (unkn own) (unknown) (no date) (unknown) (unknown) 5.4 mmol/l (unkn own) (unknown) (no date) (unknown) (unknown) 648 u/l (unkn own) (unknown) (no date) (unknown) (unknown) 7.0 (units (unkn own) unknown) (unknown) (no date) (unknown) (unknown) 7.6 g/dl (unkn own) (unknown) (no date) (unknown) (unknown) 8.3 mg/dl (unkn own) (unknown) (no date) (unknown) (unknown) 90 iu/l (unkn own) (unknown) (no date) (unknown) (unknown) 91 iu/l (unkn own) (unknown) (no date) (unknown) (unknown) CLEAR (units (unkn own) unknown) (unknown) (no date) (unknown) (unknown) Cult Not (units (unkn own) Indicated unknown) (unknown) (no date) (unknown) (unknown) NEGATIVE (units (unkn own) unknown) (unknown) (no date) (unknown) (unknown) None Seen (units (unk nown) unknown) (unknown) (no date) (unknown) (unknown) None Seen (units (unk nown) unknown) (unknown) (no date) (unknown) (unknown) Test not % (unkn own) performed (unknown) (no date) (unknown) (unknown) Test not % (unkn own) performed (unknown) (no date) (unknown) (unknown) Test not ng/ml (unkn own) performed (unknown) (no date) (unknown) (unknown) Test not ng/ml (unkn own) performed (unknown) (no date) (unknown) (unknown) YELLOW (units (unkn own) unknown) (unknown) (no date) (unknown) (unknown) YELLOW (units (unkn own) unknown) Result panel 561 (unknown) (no (unknown) (unknown) (no value) (units (unk nown) date) unknown) (unknown) (no (unknown) (unknown) 03/28/22 (units (unkno wn) date) 03/28/22 03/28/22 unknown) Range/Units (unknown) (no (unknown) (unknown) 03/28/22 18:47 (units (unknown) date) unknown) (unknown) (no (unknown) (unknown) 03/28/22 19:00 (units (unknown) date) unknown) (unknown) (no (unknown) (unknown) 03/28/22 (units (unkno wn) date) unknown) (unknown) (no (unknown) (unknown) [address] [place] [address] (units (unknown) date) unknown) (unknown) (no (unknown) (unknown) 134 mg PO DAILY (units (unknown) date) unknown) (unknown) (no (unknown) (unknown) 18:51 (units (unkno wn) date) unknown) (unknown) (no (unknown) (unknown) 19:00 19:00 (units (un known) date) 19:00 unknown) (unknown) (no (unknown) (unknown) 25 mg PO DAILY (units (unknown) date) unknown) (unknown) (no (unknown) (unknown) 2847 (units (unkno wn) date) unknown) (unknown) (no (unknown) (unknown) 40 mg PO BID (units (u nknown) date) Qty: 0 0RF unknown) (unknown) (no (unknown) (unknown) 40 mg PO DAILY (units (unknown) date) unknown) (unknown) (no (unknown) (unknown) 5 MG PO Q8HR As (units (unknown) date) Needed for Pain unknown) (unknown) (no (unknown) (unknown) 5 mg PO Q8HR PRN (units (unknown) date) (Reason: Pain.) unknown) (unknown) (no (unknown) (unknown) 500 mg PO BID (units ( unknown) date) unknown) (unknown) (no (unknown) (unknown) 81 mg PO DAILY (units (unknown) date) unknown) (unknown) (no (unknown) (unknown) ? (units (unkno wn) date) unknown) (unknown) (no (unknown) (unknown) ALT 90 H (<50) (units (unknown) date) IU/L unknown) (unknown) (no (unknown) (unknown) AST 91 H (17-59) (units (unknown) date) IU/L unknown) (unknown) (no (unknown) (unknown) Accession (units (unkn own) date) Number: unknown) [id number] ?? (unknown) (no (unknown) (unknown) Acct:[id number] (units (unknown) date) unknown) (unknown) (no (unknown) (unknown) Age/Sex: 66 / M (units (unknown) date) unknown) (unknown) (no (unknown) (unknown) Albumin 4.3 (units (un known) date) (3.5-5.0) g/dL unknown) (unknown) (no (unknown) (unknown) Albumin/Globulin (units (unknown) date) Ratio 1.3 unknown) (1.0-2.8) (unknown) (no (unknown) (unknown) Alkaline (units (unkno wn) date) Phosphatase 129 H unknown) (38-126) U/L (unknown) (no (unknown) (unknown) Allergies (units (unkn own) date) unknown) (unknown) (no (unknown) (unknown) Allergy/AdvReac (units (unknown) date) Type Severity unknown) Reaction Status Date / Time (unknown) (no (unknown) (unknown) Amorphous (units (unkn own) date) Sediment 1 unknown) (unknown) (no (unknown) (unknown) [place], [place] (units ( unknown) date) [id number] unknown) (unknown) (no (unknown) (unknown) Approved by: (units (u nknown) date) Michele Garduno M.D. unknown) on 03/28/2022 at 19:24?? (unknown) (no (unknown) (unknown) Aspirin Child 81 (units (unknown) date) mg PO DAILY unknown) 11/01/20 11/01/20 (unknown) (no (unknown) (unknown) Aspirin Child (units ( unknown) date) tablet unknown) (unknown) (no (unknown) (unknown) BUN 5 L (9-20) (units (unknown) date) mg/dL unknown) (unknown) (no (unknown) (unknown) BUN/Creatinine (units (unknown) date) Ratio 7.0 (6-22) unknown) (unknown) (no (unknown) (unknown) Baso # (Auto) 0 (units (unknown) date) (0-100) /uL unknown) (unknown) (no (unknown) (unknown) Baso % (Auto) (units ( unknown) date) 0.8 (0-2) % unknown) (unknown) (no (unknown) (unknown) Bones and chest (units (unknown) date) wall:? No unknown) suspicious bony lesions.? Prior left clavicle (unknown) (no (unknown) (unknown) CK-MB (CK-2) Rel (units (unknown) date) Index TNP unknown) (unknown) (no (unknown) (unknown) CK-MB (CK-2) TNP (units (unknown) date) unknown) (unknown) (no (unknown) (unknown) COMPARISON:? (units (u nknown) date) [facility], unknown) CR, XR CHEST 1V, 10/31/2020, 23:19. (unknown) (no (unknown) (unknown) Calcium 8.3 L (units ( unknown) date) (8.4-10.2) mg/dL unknown) (unknown) (no (unknown) (unknown) Carbon Dioxide (units (unknown) date) 17 L (22-32) unknown) mmol/L (unknown) (no (unknown) (unknown) Chest x-ray: (units (u nknown) date) unknown) (unknown) (no (unknown) (unknown) Chief complaint: (units (unknown) date) Chest Pain unknown) (unknown) (no (unknown) (unknown) Chloride 105 (units (u nknown) date) (98-107) mmol/L unknown) (unknown) (no (unknown) (unknown) Complete Blood (units (unknown) date) Count AUTO DIFF unknown) Stat (unknown) (no (unknown) (unknown) Comprehensive (units ( unknown) date) Metabolic Panel unknown) Stat (unknown) (no (unknown) (unknown) Coronary artery (units (unknown) date) disease unknown) (unknown) (no (unknown) (unknown) Course (units (unkno wn) date) unknown) (unknown) (no (unknown) (unknown) Creatinine 0.71 (units (unknown) date) (0.66-1.25) mg/dL unknown) (unknown) (no (unknown) (unknown) : 1955 (units (unknown) date) Acct:[id number] unknown) (unknown) (no (unknown) (unknown) : 1955 (units (unknown) date) unknown) (unknown) (no (unknown) (unknown) Date of Service: (units (unknown) date) 03/28/22 unknown) (unknown) (no (unknown) (unknown) Departure (units (unkn own) date) unknown) (unknown) (no (unknown) (unknown) Diabetes type 2, (units (unknown) date) uncontrolled unknown) (unknown) (no (unknown) (unknown) Dictated by: (units (u nknown) date) Michele Garduno M.D. unknown) on 03/28/2022 at 19:23 ? ? (unknown) (no (unknown) (unknown) Discharge Plan (units (unknown) date) unknown) (unknown) (no (unknown) (unknown) Discontinued (units (u nknown) date) Medications unknown) (unknown) (no (unknown) (unknown) ED Orders (units (unkn own) date) unknown) (unknown) (no (unknown) (unknown) EKG-12 Lead Stat (units (unknown) date) unknown) (unknown) (no (unknown) (unknown) ER Physician: (units ( unknown) date) Fausto Padgett unknown) D.O. (unknown) (no (unknown) (unknown) Elevated blood (units (unknown) date) alcohol level unknown) (unknown) (no (unknown) (unknown) Emergency Report (units (unknown) date) unknown) (unknown) (no (unknown) (unknown) Eos # (Auto) 100 (units (unknown) date) (0-450) /uL unknown) (unknown) (no (unknown) (unknown) Eos % (Auto) 2.0 (units (unknown) date) (2-4) % unknown) (unknown) (no (unknown) (unknown) Estimated GFR > (units (unknown) date) 60 (>60) mL/min unknown) (unknown) (no (unknown) (unknown) Exam (units (unkno wn) date) unknown) (unknown) (no (unknown) (unknown) FINDINGS:? (units (unk nown) date) unknown) (unknown) (no (unknown) (unknown) Family History (units (unknown) date) (Updated 11/01/20 unknown) @ 06:42 by GRACY Dick) (unknown) (no (unknown) (unknown) Father (units (unknown) date) Lung cancer unknown) (unknown) (no (unknown) (unknown) General (units (unkno wn) date) unknown) (unknown) (no (unknown) (unknown) Globulin 3.3 (units (u nknown) date) (1.7-4.1) g/dL unknown) (unknown) (no (unknown) (unknown) Glucose 390 H (units ( unknown) date) (80-110) mg/dL unknown) (unknown) (no (unknown) (unknown) H/O heart artery (units (unknown) date) stent unknown) (unknown) (no (unknown) (unknown) HPI - General (units ( unknown) date) Adult unknown) (unknown) (no (unknown) (unknown) Hct 47.6 (41-53) (units (unknown) date) % unknown) (unknown) (no (unknown) (unknown) Hgb 16.8 (units (unkno wn) date) (13.5-17.5) g/dL unknown) (unknown) (no (unknown) (unknown) Home Medications (units (unknown) date) unknown) (unknown) (no (unknown) (unknown) IMPRESSION:? (units (u nknown) date) unknown) (unknown) (no (unknown) (unknown) INDICATIONS:? (units ( unknown) date) chest pain unknown) (unknown) (no (unknown) (unknown) Imaging Data (units (u nknown) date) unknown) (unknown) (no (unknown) (unknown) Initial Vital (units ( unknown) date) Signs unknown) (unknown) (no (unknown) (unknown) Initial Vital (units ( unknown) date) Signs: unknown) (unknown) (no (unknown) (unknown) [facility] (units (unknown) date) [address] unknown) [place] [id number] (unknown) (no (unknown) (unknown) [facility] (units (unknown) date) unknown) (unknown) (no (unknown) (unknown) Lab Data (units (unkno wn) date) unknown) (unknown) (no (unknown) (unknown) Lab Results (units (un known) date) unknown) (unknown) (no (unknown) (unknown) Label Comments: (units (unknown) date) unknown) (unknown) (no (unknown) (unknown) Labs: (units (unkno wn) date) unknown) (unknown) (no (unknown) (unknown) Lidocaine HCl (units ( unknown) date) (Lidocaine 2% unknown) (Glydo) 6 Ml Gel) 6 ml TOP NOW ONE (unknown) (no (unknown) (unknown) Lipase 648 H (units (u nknown) date) (23-300) U/L unknown) (unknown) (no (unknown) (unknown) Lipase Stat (units (un known) date) unknown) (unknown) (no (unknown) (unknown) Loc: ED (units (unkno wn) date) unknown) (unknown) (no (unknown) (unknown) Lungs and (units (unkn own) date) pleura:? Lungs unknown) are clear.? No pleural effusions or pneumothorax.? (unknown) (no (unknown) (unknown) Lymph # (Auto) (units (unknown) date) 2200 (5864-0863) unknown) /uL (unknown) (no (unknown) (unknown) Lymph % (Auto) (units (unknown) date) 34.0 (25-40) % unknown) (unknown) (no (unknown) (unknown) MCH 30.7 (26-34) (units (unknown) date) PG unknown) (unknown) (no (unknown) (unknown) MCHC 35.2 (units (unkn own) date) (30-36) % unknown) (unknown) (no (unknown) (unknown) MCV 87.2 (units (unkno wn) date) (80-100) fL unknown) (unknown) (no (unknown) (unknown) MR#: [id number] (units (unknown) date) unknown) (unknown) (no (unknown) (unknown) Magnesium 1.8 (units ( unknown) date) (1.6-2.3) mg/dL unknown) (unknown) (no (unknown) (unknown) Magnesium Stat (units (unknown) date) unknown) (unknown) (no (unknown) (unknown) Mediastinum:? (units ( unknown) date) Mediastinal unknown) contours appear normal.? Heart size is normal.? (unknown) (no (unknown) (unknown) Medical Decision (units (unknown) date) Making unknown) (unknown) (no (unknown) (unknown) Medical History (units (unknown) date) (Updated 11/01/20 unknown) @ 07:58 by GRACY Dick) (unknown) (no (unknown) (unknown) Medication (units (unk nown) date) Instructions unknown) Recorded Confirmed (unknown) (no (unknown) (unknown) Medication (units (unk nown) date) Instructions unknown) Recorded (unknown) (no (unknown) (unknown) Miscellaneous,Do (units (unknown) date) MD gee [Primary unknown) Care Provider] (unknown) (no (unknown) (unknown) [place] # (Auto) (units ( unknown) date) 400 (0-900) /uL unknown) (unknown) (no (unknown) (unknown) [place] % (Auto) (units ( unknown) date) 6.3 (3-14) % unknown) (unknown) (no (unknown) (unknown) Morphine Sulfate (units (unknown) date) (Morphine 4 Mg/Ml unknown) Inj) 4 mg IV NOW ONE (unknown) (no (unknown) (unknown) Mother Medical (units (unknown) date) history unknown unknown) (unknown) (no (unknown) (unknown) Neut # (Auto) (units ( unknown) date) 3700 (6111-9907) unknown) /uL (unknown) (no (unknown) (unknown) Neut % (Auto) (units ( unknown) date) 56.9 (50-75) % unknown) (unknown) (no (unknown) (unknown) No Action (units (unkn own) date) unknown) (unknown) (no (unknown) (unknown) No Known Drug (units ( unknown) date) Allergies Allergy unknown) Verified 10/31/20 23:10 (unknown) (no (unknown) (unknown) No acute osseous (units (unknown) date) abnormality. unknown) (unknown) (no (unknown) (unknown) Ordered: (units (unkno wn) date) unknown) (unknown) (no (unknown) (unknown) Ordering (units (unkno wn) date) Provider: unknown) Fausto Padgett D.O. (unknown) (no (unknown) (unknown) Orders (units (unkno wn) date) unknown) (unknown) (no (unknown) (unknown) Overlying soft (units (unknown) date) tissues appear unknown) unremarkable.? (unknown) (no (unknown) (unknown) Oxygen Delivery (units (unknown) date) Method 03/28/22 unknown) 18:51 (unknown) (no (unknown) (unknown) Oxygen Delivery (units (unknown) date) Method Room Air unknown) (unknown) (no (unknown) (unknown) PROCEDURE:? XR (units (unknown) date) CHEST 1V unknown) (unknown) (no (unknown) (unknown) Patient History (units (unknown) date) unknown) (unknown) (no (unknown) (unknown) Patient: (units (unkno wn) date) Frank Chan MR#: unknown) [id number] (unknown) (no (unknown) (unknown) Patient: (units (unkno wn) date) Frank Chan unknown) (unknown) (no (unknown) (unknown) Plt Count 154 (units ( unknown) date) (150-400) X103/uL unknown) (unknown) (no (unknown) (unknown) Potassium 5.4 H (units (unknown) date) (3.4-5.1) mmol/L unknown) (unknown) (no (unknown) (unknown) Prescriptions: (units (unknown) date) unknown) (unknown) (no (unknown) (unknown) Previous Rx's (units ( unknown) date) unknown) (unknown) (no (unknown) (unknown) Procedure: XR (units ( unknown) date) chest 1V unknown) (unknown) (no (unknown) (unknown) Pulse Oximetry (units (unknown) date) 95 03/28/22 18:51 unknown) (unknown) (no (unknown) (unknown) Pulse Oximetry (units (unknown) date) 95 unknown) (unknown) (no (unknown) (unknown) Pulse Rate 120 H (units (unknown) date) 03/28/22 18:51 unknown) (unknown) (no (unknown) (unknown) Pulse Rate 120 H (units (unknown) date) unknown) (unknown) (no (unknown) (unknown) RBC 5.46 (units (unkno wn) date) (4.5-5.9) X106/uL unknown) (unknown) (no (unknown) (unknown) RDW 14.1 (units (unkno wn) date) (11.6-14.8) % unknown) (unknown) (no (unknown) (unknown) Radiologist's (units ( unknown) date) Impression: unknown) (unknown) (no (unknown) (unknown) Referrals: (units (unk nown) date) unknown) (unknown) (no (unknown) (unknown) Related Data (units (u nknown) date) unknown) (unknown) (no (unknown) (unknown) Respiratory Rate (units (unknown) date) 26 H 03/28/22 unknown) 18:51 (unknown) (no (unknown) (unknown) Respiratory Rate (units (unknown) date) 26 H unknown) (unknown) (no (unknown) (unknown) Result diagrams: (units (unknown) date) unknown) (unknown) (no (unknown) (unknown) Signed By: (units (unk nown) date) unknown) (unknown) (no (unknown) (unknown) Signed (units (unkno wn) date) unknown) (unknown) (no (unknown) (unknown) Smoking Status: (units (unknown) date) Current every day unknown) smoker (unknown) (no (unknown) (unknown) Social History (units (unknown) date) (Reviewed unknown) 11/01/20 @ 00:30 by Nico Roche MD) (unknown) (no (unknown) (unknown) Sodium 138 (units (unk nown) date) (137-145) mmol/L unknown) (unknown) (no (unknown) (unknown) Stated (units (unkno wn) date) complaint: unknown) Bilateral LE, pelvis and chest wall pain (unknown) (no (unknown) (unknown) Stop: 03/28/22 (units (unknown) date) 18:44 unknown) (unknown) (no (unknown) (unknown) Stop: 03/28/22 (units (unknown) date) 19:00 unknown) (unknown) (no (unknown) (unknown) Substance Use (units ( unknown) date) Type: does not unknown) use (unknown) (no (unknown) (unknown) Surgical History (units (unknown) date) (Updated 11/01/20 unknown) @ 00:30 by Nico Roche MD) (unknown) (no (unknown) (unknown) Surgical changes (units (unknown) date) and devices:? unknown) None.? (unknown) (no (unknown) (unknown) TECHNIQUE:? One (units (unknown) date) view of the chest unknown) was acquired.? (unknown) (no (unknown) (unknown) Time Seen by (units (u nknown) date) Provider: unknown) 03/28/22 18:45 (unknown) (no (unknown) (unknown) Total Bilirubin (units (unknown) date) 1.1 (0.2-1.3) unknown) mg/dL (unknown) (no (unknown) (unknown) Total Creatine (units (unknown) date) Kinase 38 L unknown) (55-170) U/L (unknown) (no (unknown) (unknown) Total Protein (units ( unknown) date) 7.6 (6.3-8.2) unknown) g/dL (unknown) (no (unknown) (unknown) Troponin + CK (units ( unknown) date) Cardiac Panel unknown) Stat (unknown) (no (unknown) (unknown) Ur Culture (units (unk nown) date) Indicated? Cult unknown) not indicated (unknown) (no (unknown) (unknown) Ur Leukocyte (units (u nknown) date) Esterase Negative unknown) (NEGATIVE) (unknown) (no (unknown) (unknown) Ur Specific (units (un known) date) [place] <=1.005 unknown) (1.000-1.035) (unknown) (no (unknown) (unknown) Urinalysis and (units (unknown) date) Microscopic Stat unknown) (unknown) (no (unknown) (unknown) Urine Appearance (units (unknown) date) Clear unknown) (unknown) (no (unknown) (unknown) Urine Bacteria (units (unknown) date) None seen (None) unknown) (unknown) (no (unknown) (unknown) Urine Bilirubin (units (unknown) date) Negative unknown) (NEGATIVE) (unknown) (no (unknown) (unknown) Urine Color (units (un known) date) Yellow unknown) (unknown) (no (unknown) (unknown) Urine Glucose (units ( unknown) date) (UA) 3+ H unknown) (Negative) g/dL (unknown) (no (unknown) (unknown) Urine Ketones (units ( unknown) date) Negative unknown) (NEGATIVE) (unknown) (no (unknown) (unknown) Urine Nitrate (units ( unknown) date) Negative unknown) (Negative) (unknown) (no (unknown) (unknown) Urine Occult (units (u nknown) date) Blood Negative unknown) (Negative) (unknown) (no (unknown) (unknown) Urine Protein (units ( unknown) date) Negative unknown) (Negative) (unknown) (no (unknown) (unknown) Urine RBC (units (unkn own) date) 0-1/hpf (0-5/HPF) unknown) (unknown) (no (unknown) (unknown) Urine (units (unkno wn) date) Urobilinogen 0.2 unknown) (0.2) E.U./dL (unknown) (no (unknown) (unknown) Urine WBC None (units (unknown) date) seen (0-5/HPF) unknown) (unknown) (no (unknown) (unknown) Urine pH 5.0 (units (u nknown) date) (4.5-8.0) unknown) (unknown) (no (unknown) (unknown) Vital Signs - 8 (units (unknown) date) hr unknown) (unknown) (no (unknown) (unknown) Vital Signs (units (un known) date) unknown) (unknown) (no (unknown) (unknown) Vital signs: (units (u nknown) date) unknown) (unknown) (no (unknown) (unknown) WBC 6.5 (units (unkno wn) date) (4.5-11.0) unknown) X103/uL (unknown) (no (unknown) (unknown) XR chest 1V Stat (units (unknown) date) unknown) (unknown) (no (unknown) (unknown) XRay Report (units (un known) date) unknown) (unknown) (no (unknown) (unknown) [Embedded Image (units (unknown) date) Not Available] unknown) (unknown) (no (unknown) (unknown) alcohol intake: (units (unknown) date) former unknown) (unknown) (no (unknown) (unknown) atorvastatin 40 (units (unknown) date) mg tablet unknown) (Lipitor) 40 mg PO DAILY 10/31/20 11/01/20 (unknown) (no (unknown) (unknown) atorvastatin (units (u nknown) date) [Lipitor] 40 mg unknown) tablet (unknown) (no (unknown) (unknown) capsule (units (unkno wn) date) unknown) (unknown) (no (unknown) (unknown) fenofibrate (units (un known) date) micronized 134 mg unknown) 134 mg PO DAILY 11/01/20 11/01/20 (unknown) (no (unknown) (unknown) fenofibrate (units (un known) date) micronized 134 mg unknown) capsule (unknown) (no (unknown) (unknown) fracture.? (units (unk nown) date) unknown) (unknown) (no (unknown) (unknown) household (units (unkn own) date) members: unknown) significant other (unknown) (no (unknown) (unknown) last taken was 4 (units (unknown) date) weeks ago. unknown) (unknown) (no (unknown) (unknown) metformin 500 mg (units (unknown) date) tablet 500 mg PO unknown) BID 10/31/20 11/01/20 (unknown) (no (unknown) (unknown) metformin 500 mg (units (unknown) date) tablet unknown) (unknown) (no (unknown) (unknown) metoprolol (units (unk nown) date) succinate 25 mg unknown) 25 mg PO DAILY 10/31/20 11/01/20 (unknown) (no (unknown) (unknown) metoprolol (units (unk nown) date) succinate 25 mg unknown) tablet extended release 24 hr (unknown) (no (unknown) (unknown) oxycodone 5 mg (units (unknown) date) tablet 5 mg PO unknown) Q8HR PRN Pain. 10/31/20 11/01/20 (unknown) (no (unknown) (unknown) oxycodone 5 mg (units (unknown) date) tablet unknown) (unknown) (no (unknown) (unknown) pantoprazole 40 (units (unknown) date) mg PO BID ##0 unknown) 11/01/20 (unknown) (no (unknown) (unknown) pantoprazole (units (u nknown) date) tablet unknown) (unknown) (no (unknown) (unknown) tablet,extended (units (unknown) date) release 24 hr unknown) (unknown) (no (unknown) (unknown) took it 4 weeks (units (unknown) date) ago. unknown) Result panel 562 (unknown) (no date) (unknown) (unknown) > 60 ml/min (unkn own) (unknown) (no date) (unknown) (unknown) > 60 ml/min (unkn own) (unknown) (no date) (unknown) (unknown) < 0.012 ng/ml (unkn own) (unknown) (no date) (unknown) (unknown) < 0.012 ng/ml (unkn own) (unknown) (no date) (unknown) (unknown) 0.71 mg/dl (unkn own) (unknown) (no date) (unknown) (unknown) 1.1 mg/dl (unkn own) (unknown) (no date) (unknown) (unknown) 1.3 (units (unkn own) unknown) (unknown) (no date) (unknown) (unknown) 1.8 mg/dl (unkn own) (unknown) (no date) (unknown) (unknown) 105 mmol/l (unkn own) (unknown) (no date) (unknown) (unknown) 129 u/l (unkn own) (unknown) (no date) (unknown) (unknown) 138 mmol/l (unkn own) (unknown) (no date) (unknown) (unknown) 17 mmol/l (unkn own) (unknown) (no date) (unknown) (unknown) 3.3 g/dl (unkn own) (unknown) (no date) (unknown) (unknown) 38 u/l (unkn own) (unknown) (no date) (unknown) (unknown) 390 mg/dl (unkn own) (unknown) (no date) (unknown) (unknown) 390 mg/dl (unkn own) (unknown) (no date) (unknown) (unknown) 4.3 g/dl (unkn own) (unknown) (no date) (unknown) (unknown) 5 mg/dl (unkn own) (unknown) (no date) (unknown) (unknown) 5.4 mmol/l (unkn own) (unknown) (no date) (unknown) (unknown) 5.4 mmol/l (unkn own) (unknown) (no date) (unknown) (unknown) 648 u/l (unkn own) (unknown) (no date) (unknown) (unknown) 7.0 (units (unkn own) unknown) (unknown) (no date) (unknown) (unknown) 7.6 g/dl (unkn own) (unknown) (no date) (unknown) (unknown) 8.3 mg/dl (unkn own) (unknown) (no date) (unknown) (unknown) 90 iu/l (unkn own) (unknown) (no date) (unknown) (unknown) 91 iu/l (unkn own) (unknown) (no date) (unknown) (unknown) Test not % (unkn own) performed (unknown) (no date) (unknown) (unknown) Test not % (unkn own) performed (unknown) (no date) (unknown) (unknown) Test not ng/ml (unkn own) performed (unknown) (no date) (unknown) (unknown) Test not ng/ml (unkn own) performed Result panel 563 (unknown) (no date) (unknown) (unknown) 1528 ng/ml (unkn own) (unknown) (no date) (unknown) (unknown) 1528 ng/ml (unkn own) Result panel 564 (unknown) (no (unknown) (unknown) (no value) (units (unk nown) date) unknown) (unknown) (no (unknown) (unknown) +---------+ [phone] (uni ts (unknown) date) +--------- unknown) (unknown) (no (unknown) (unknown) +---------+ Hospital (uni ts (unknown) date) +--------- unknown) (unknown) (no (unknown) (unknown) + (uni ts (unknown) date) unknown) (unknown) (no (unknown) (unknown) 03/28/22 (units (unkno wn) date) unknown) (unknown) (no (unknown) (unknown) [address] (units (unknown) date) unknown) (unknown) (no (unknown) (unknown) [address] (units (unkno wn) date) unknown) (unknown) (no (unknown) (unknown) : : [address] : (unit s (unknown) date) : unknown) (unknown) (no (unknown) (unknown) : : [address] : : (units ( unknown) date) unknown) (unknown) (no (unknown) (unknown) : : [facility] : (unit s (unknown) date) : unknown) (unknown) (no (unknown) (unknown) : : Phone: [phone] : : (unit s (unknown) date) unknown) (unknown) (no (unknown) (unknown) :Account #: (units (un known) date) [id number] Gender: unknown) Male BSA: 2.0 m2 : (unknown) (no (unknown) (unknown) :: 1955 (units (unknown) date) Age: 66 yrs BP: unknown) 157/83 mmHg: (unknown) (no (unknown) (unknown) :Hospital MRN #: (units (unknown) date) [id number] unknown) ReadingLocation: Weight: 180 lb : (unknown) (no (unknown) (unknown) :[facility] Performed By: (unit s (unknown) date) Cindy Costa : unknown) (unknown) (no (unknown) (unknown) :Name: FRANK CHAN (uni ts (unknown) date) Study Date: unknown) 03/29/2022 Height: 68 in : (unknown) (no (unknown) (unknown) :Ordering Physician: (uni ts (unknown) date) TASHI, : unknown) (unknown) (no (unknown) (unknown) :Reason For Study: (units (unknown) date) CHEST PAIN : unknown) (unknown) (no (unknown) (unknown) :Referring: (units (un known) date) [facility] AKINS : unknown) (unknown) (no (unknown) (unknown) A pharmacologic (units (unknown) date) stress test was unknown) performed under the supervision of an attending (unknown) (no (unknown) (unknown) sev ratio: 0.85 (units (unknown) date) unknown) (unknown) (no (unknown) (unknown) NANDA indexed to BSA (units (unknown) date) (cm2/m2): 1.5 unknown) (unknown) (no (unknown) (unknown) Accession Number: (units (unknown) date) [id number] unknown) (unknown) (no (unknown) (unknown) Accession Number: (units (unknown) date) [id number] unknown) (unknown) (no (unknown) (unknown) Age/Sex: 66 / M Date (uni ts (unknown) date) of Service: unknown) (unknown) (no (unknown) (unknown) [place] [address] (unit s (unknown) date) unknown) (unknown) (no (unknown) (unknown) Ao V2 VTI: 21.9 cm (units (unknown) date) NANDA(V,D): 2.8 cm2 unknown) (unknown) (no (unknown) (unknown) Ao V2 max: 112.2 (units (unknown) date) cm/sec LVOT Max Rolando: unknown) 92.1 cm/sec (unknown) (no (unknown) (unknown) Ao V2 mean: 84.5 (units (unknown) date) cm/sec LV V1 max PG: unknown) 3.4 mmHg (unknown) (no (unknown) (unknown) Ao max P.0 mmHg (unit s (unknown) date) LV V1 VTI: 18.5 cm unknown) (unknown) (no (unknown) (unknown) Ao mean P.1 mmHg (uni ts (unknown) date) NANDA(I,D): 2.9 cm2 unknown) (unknown) (no (unknown) (unknown) Aortic Valve: The (units (unknown) date) aortic valve is unknown) trileaflet. The aortic valve opens well. (unknown) (no (unknown) (unknown) Approved by: Radha (unit s (unknown) date) Jeffrey Dunn on unknown) 03/29/2022 at 17:01 (unknown) (no (unknown) (unknown) Atria: The left (units (unknown) date) atrium grossly unknown) appears normal in size. Right atrial size is (unknown) (no (unknown) (unknown) CARDIAC STRESS: (units (unknown) date) unknown) (unknown) (no (unknown) (unknown) COMPARISON: None. (units (unknown) date) unknown) (unknown) (no (unknown) (unknown) : 1955 (units (unknown) date) Acct:[id number] unknown) (unknown) (no (unknown) (unknown) Diastolic parameters (uni ts (unknown) date) suggest a relaxation unknown) abnormality of the left ventricle, (unknown) (no (unknown) (unknown) Dictated by: Radha (unit s (unknown) date) Jeffrey Dunn on unknown) 03/29/2022 at 16:57 (unknown) (no (unknown) (unknown) Doppler Measurements (uni ts (unknown) date) + Calculations unknown) (unknown) (no (unknown) (unknown) E/E' lat: 4.6 (units ( unknown) date) unknown) (unknown) (no (unknown) (unknown) E/E' med: 9.4 (units ( unknown) date) unknown) (unknown) (no (unknown) (unknown) E/e' average: 7.0 (units (unknown) date) unknown) (unknown) (no (unknown) (unknown) EKG: Unable to (units (unknown) date) evaluate for ischemia unknown) with pharmacologic stress; no ectopy. (unknown) (no (unknown) (unknown) EPSS: 1.1 cm Ao Arch (uni ts (unknown) date) Diam (Prox Trans): unknown) 2.9 cm (unknown) (no (unknown) (unknown) Echocardiogram (units (unknown) date) Report unknown) (unknown) (no (unknown) (unknown) Echocardiography (units (unknown) date) Report unknown) (unknown) (no (unknown) (unknown) Electronically (units (unknown) date) signed by: Chaitanya unknown) Naveen on 03/29/2022 11:25 (unknown) (no (unknown) (unknown) FINDINGS: (units (unkn own) date) unknown) (unknown) (no (unknown) (unknown) FS: 23.3 % asc Aorta (uni ts (unknown) date) Diam: 3.5 cm unknown) (unknown) (no (unknown) (unknown) Great Vessels: The (units (unknown) date) aortic root is normal unknown) size. The dimensions of the (unknown) (no (unknown) (unknown) Hemodynamic data: (units (unknown) date) There is normal blood unknown) pressure and heart rate response to (unknown) (no (unknown) (unknown) Hypertensive during (unit s (unknown) date) exam unknown) (unknown) (no (unknown) (unknown) IMPRESSION: No (units (unknown) date) evidence of unknown) pharmacologic induced ischemia. (unknown) (no (unknown) (unknown) INDICATIONS: Chest (units (unknown) date) pain unknown) (unknown) (no (unknown) (unknown) IVSd: 0.85 cm (units ( unknown) date) unknown) (unknown) (no (unknown) (unknown) Increased LVEDV in (units (unknown) date) the post stress unknown) images with preserved ejection fraction. (unknown) (no (unknown) (unknown) Inferior and (units (u nknown) date) inferolateral scar on unknown) perfusion imaging with associated (unknown) (no (unknown) (unknown) Interpretation (units (unknown) date) Summary unknown) (unknown) (no (unknown) (unknown) [facility] (units (unknown) date) unknown) (unknown) (no (unknown) (unknown) [place] (units (unkno wn) date) unknown) (unknown) (no (unknown) (unknown) LA A2 area: 15.2 cm2 (uni ts (unknown) date) RA long axis: 4.4 cm unknown) (unknown) (no (unknown) (unknown) LA A4 area: 14.1 cm2 (uni ts (unknown) date) RA area: 11.5 cm2 unknown) (unknown) (no (unknown) (unknown) LA length (vol): 4.7 (uni ts (unknown) date) cm RA vol: 25.6 ml unknown) (unknown) (no (unknown) (unknown) LA vol index: 19.7 (units (unknown) date) ml/m2 IVC diam: 0.96 unknown) cm (unknown) (no (unknown) (unknown) LA vol: 38.5 ml RA (units (unknown) date) : 13.1 ml/m2 unknown) (unknown) (no (unknown) (unknown) LV peterson. (units (unkno wn) date) diameter/BSA (cm/m2): unknown) 3.1 (unknown) (no (unknown) (unknown) LV sys. diameter/BSA (uni ts (unknown) date) (cm/m2): 2.4 unknown) (unknown) (no (unknown) (unknown) LVIDd: 6.1 cm LVOT (units (unknown) date) diam: 2.1 cm unknown) (unknown) (no (unknown) (unknown) LVIDs: 4.7 cm Ao (units (unknown) date) root diam: 3.3 cm unknown) (unknown) (no (unknown) (unknown) LVPWd: 0.85 cm (units (unknown) date) unknown) (unknown) (no (unknown) (unknown) Lat Peak E' Rolando: (units (unknown) date) 10.3 cm/sec unknown) (unknown) (no (unknown) (unknown) Left Ventricle: The (unit s (unknown) date) estimated left unknown) ventricular end diastolic volume is 95 (unknown) (no (unknown) (unknown) Left ventricle (units (unknown) date) function: Gated unknown) images demonstrate inferior and inferolateral (unknown) (no (unknown) (unknown) Loc: AC 204-1 (units ( unknown) date) unknown) (unknown) (no (unknown) (unknown) MMode/2D (units (unkno wn) date) Measurements + unknown) Calculations (unknown) (no (unknown) (unknown) MV A max rolando: 77.0 (units (unknown) date) cm/sec PA V2 mean: unknown) 63.8 cm/sec (unknown) (no (unknown) (unknown) MV E max rolando: 47.3 (units (unknown) date) cm/sec PA V2 max: unknown) 89.8 cm/sec (unknown) (no (unknown) (unknown) MV E/A: 0.61 PA mean (uni ts (unknown) date) P.8 mmHg unknown) (unknown) (no (unknown) (unknown) MV dec time: 0.24 (units (unknown) date) sec unknown) (unknown) (no (unknown) (unknown) Med Peak E' Rolando: 5.0 (uni ts (unknown) date) cm/sec PA pr(Accel): unknown) 49.9 mmHg (unknown) (no (unknown) (unknown) Mitral Valve: The (units (unknown) date) mitral valve is unknown) normal in structure and function. There is (unknown) (no (unknown) (unknown) Myocardial (units (unk nown) date) perfusion: There is a unknown) large size, moderate to severe intensity (unknown) (no (unknown) (unknown) No prior study for (units (unknown) date) comparison. unknown) (unknown) (no (unknown) (unknown) Nuclear Medicine (units (unknown) date) Report unknown) (unknown) (no (unknown) (unknown) Ordering Provider: (units (unknown) date) Umesh Akins MD unknown) (unknown) (no (unknown) (unknown) PROCEDURE: NM [place] (units (unknown) date) PERF SPECT R+S PHARM unknown) (unknown) (no (unknown) (unknown) Patient: (units (unkno wn) date) Frank Chan MR#: unknown) M0003 (unknown) (no (unknown) (unknown) Pericardium/ Pleura (unit s (unknown) date) There is no unknown) pericardial effusion. There is no pleural (unknown) (no (unknown) (unknown) Procedure: A (units (u nknown) date) two-dimensional unknown) transthoracic echocardiogram with color flow (unknown) (no (unknown) (unknown) Procedure: EC echo (units (unknown) date) doppler complete unknown) (unknown) (no (unknown) (unknown) Procedure: NM [place] (units (unknown) date) perf SPECT R+S pharm unknown) (unknown) (no (unknown) (unknown) Pulmonic Valve: The (unit s (unknown) date) pulmonic valve is not unknown) well seen, but is grossly normal. (unknown) (no (unknown) (unknown) RADIOPHARMACEUTICAL: (uni ts (unknown) date) 9.2 mCi Tc-99m unknown) tetrafosmin IV at rest and 27.4 mCi Tc-99m (unknown) (no (unknown) (unknown) RVD1 (basal): 2.4 cm (uni ts (unknown) date) unknown) (unknown) (no (unknown) (unknown) RVD2 (mid): 1.8 cm (units (unknown) date) unknown) (unknown) (no (unknown) (unknown) Raw data: There is (units (unknown) date) good myocardial unknown) uptake of radiotracer. No significant (unknown) (no (unknown) (unknown) Reading Physician:AM (uni ts (unknown) date) unknown) (unknown) (no (unknown) (unknown) Rest and (units (unkno wn) date) pharmacological unknown) stress myocardial perfusion SPECT with gated imaging (unknown) (no (unknown) (unknown) Right Ventricle: The (uni ts (unknown) date) right ventricle is unknown) normal in size and function. (unknown) (no (unknown) (unknown) SPECT images were (units (unknown) date) obtained. SPECT unknown) myocardial perfusion images were displayed (unknown) (no (unknown) (unknown) SV(LVOT): 63.1 ml (units (unknown) date) unknown) (unknown) (no (unknown) (unknown) Signed (units (unkno wn) date) unknown) (unknown) (no (unknown) (unknown) Symptoms: The (units ( unknown) date) patient denied unknown) anginal chest pain. (unknown) (no (unknown) (unknown) TAPSE: 1.7 cm (units ( unknown) date) unknown) (unknown) (no (unknown) (unknown) TECHNIQUE: (units (unn) ) Radiopharmaceutical unknown) was injected at peak stress test, and also at (unknown) (no (unknown) (unknown) TID is 1.23 (normal (unit s (unknown) date) less than 1.3). Left unknown) ventricle stress end diastolic volume (unknown) (no (unknown) (unknown) The ejection (units (u nknown) date) fraction is estimated unknown) to be 45-50%. (unknown) (no (unknown) (unknown) The patient was in (units (unknown) date) sinus rhythm with unknown) heart rates between 78-90 bpm during the (unknown) (no (unknown) (unknown) There is a (units (unk nown) date) borderline unknown) dyssynchronous contraction pattern, consistent with a (unknown) (no (unknown) (unknown) There is no aortic (units (unknown) date) valve stenosis. There unknown) is trace aortic regurgitation. (unknown) (no (unknown) (unknown) There is no pulmonic (uni ts (unknown) date) valvular unknown) regurgitation. (unknown) (no (unknown) (unknown) There is trace (units (unknown) date) tricuspid unknown) regurgitation. (unknown) (no (unknown) (unknown) Tricuspid Valve: The (uni ts (unknown) date) tricuspid valve is unknown) normal in structure and function. (unknown) (no (unknown) (unknown) (uni ts (unknown) date) unknown) (unknown) (no (unknown) (unknown) and Doppler was (units (unknown) date) performed. The study unknown) quality was technically adequate. There (unknown) (no (unknown) (unknown) and inferolateral (units (unknown) date) wall defect. No unknown) reversible perfusion defects. (unknown) (no (unknown) (unknown) and (units (unkno wn) date) unknown) (unknown) (no (unknown) (unknown) artifacts. (units (unk nown) date) Qykx-yu-qyfsh ratio unknown) is 0.47 (normal is less than 0.38 for (unknown) (no (unknown) (unknown) ascending aorta are (unit s (unknown) date) normal. The inferior unknown) vena cava was not well visualized. (unknown) (no (unknown) (unknown) axis, horizontal (units (unknown) date) long axis, and unknown) vertical long axis views. Gated images were (unknown) (no (unknown) (unknown) conduction (units (unk nown) date) abnormality. unknown) Diastolic parameters suggest a relaxation abnormality (unknown) (no (unknown) (unknown) conduction (units (unk nown) date) abnormality. unknown) (unknown) (no (unknown) (unknown) consistent with (units (unknown) date) probable normal unknown) filling pressures. (unknown) (no (unknown) (unknown) dilation; (units (unkn own) date) unknown) (unknown) (no (unknown) (unknown) effusion. (units (unkn own) date) unknown) (unknown) (no (unknown) (unknown) ejection fraction (units (unknown) date) unknown) (unknown) (no (unknown) (unknown) exam. (units (unkno wn) date) unknown) (unknown) (no (unknown) (unknown) fixed inferior (units (unknown) date) unknown) (unknown) (no (unknown) (unknown) hypokinesis. No (units (unknown) date) segmental wall motion unknown) abnormalities. No transient ischemic (unknown) (no (unknown) (unknown) hypokinesis. (units (u nknown) date) unknown) (unknown) (no (unknown) (unknown) in short (units (unkno wn) date) unknown) (unknown) (no (unknown) (unknown) is 146 (units (unkno wn) date) unknown) (unknown) (no (unknown) (unknown) is no prior (units (un known) date) echocardiogram noted unknown) for this patient. The patient was in sinus (unknown) (no (unknown) (unknown) mL. Left ventricle (units (unknown) date) stress ejection unknown) fraction is 62%; normal range is above 45%. (unknown) (no (unknown) (unknown) ml. The left (units (u nknown) date) ventricle is grossly unknown) normal size. There is normal left (unknown) (no (unknown) (unknown) motion (units (unkno wn) date) unknown) (unknown) (no (unknown) (unknown) normal. There is no (unit s (unknown) date) Doppler evidence for unknown) an interatrial shunt. (unknown) (no (unknown) (unknown) of the left (units (un known) date) ventricle, consistent unknown) with probable normal filling pressures. (unknown) (no (unknown) (unknown) performed. (units (unk nown) date) unknown) (unknown) (no (unknown) (unknown) pharmacologic (units ( unknown) date) stress. unknown) (unknown) (no (unknown) (unknown) rest. (units (unkno wn) date) unknown) (unknown) (no (unknown) (unknown) reviewed (units (unkno wn) date) unknown) (unknown) (no (unknown) (unknown) rhythm with heart (units (unknown) date) rates between 78-90 unknown) bpm during the exam. Hypertensive during (unknown) (no (unknown) (unknown) staff, (units (unkno wn) date) unknown) (unknown) (no (unknown) (unknown) tetrafosmin IV at (units (unknown) date) peak effect of unknown) pharmacological stress. [id number]-dxwqsgms was (unknown) (no (unknown) (unknown) tetrafosmin (units (un known) date) unknown) (unknown) (no (unknown) (unknown) trace mitral (units (u nknown) date) regurgitation. unknown) (unknown) (no (unknown) (unknown) tracer). (units (unkno wn) date) unknown) (unknown) (no (unknown) (unknown) using [employer] (units (unknown) date) software. unknown) (unknown) (no (unknown) (unknown) using an infusion of (uni ts (unknown) date) regadenoson. unknown) (unknown) (no (unknown) (unknown) ventricular wall (units (unknown) date) thickness. The unknown) ejection fraction is estimated to be 45-50%. Result panel 565 (unknown) (no date) (unknown) (unknown) Negative (units (unkn own) unknown) (unknown) (no date) (unknown) (unknown) Negative (units (unkn own) unknown) Result panel 566 (unknown) (no (unknown) (unknown) (no value) (units (unk nown) date) unknown) (unknown) (no (unknown) (unknown) 1. No definite (units (unknown) date) acute unknown) intra-abdominal abnormality. Specifically, no evidence of (unknown) (no (unknown) (unknown) 1. No evidence of (units (unknown) date) pulmonary unknown) embolism. (unknown) (no (unknown) (unknown) 07/08/2019, (units (unk nown) date) unknown) (unknown) (no (unknown) (unknown) 03/28/22 (units (unkno wn) date) unknown) (unknown) (no (unknown) (unknown) [address] [place] [address] (units (unknown) date) unknown) (unknown) (no (unknown) (unknown) [id number] (units (unkno wn) date) unknown) (unknown) (no (unknown) (unknown) 2. Colonic (units (unk nown) date) diverticulosis unknown) without acute diverticulitis. (unknown) (no (unknown) (unknown) 2. New left upper (units (unknown) date) lobe spiculated unknown) nodule extending to the pericardium medially (unknown) (no (unknown) (unknown) 3. Hepatic (units (unk nown) date) steatosis. unknown) (unknown) (no (unknown) (unknown) 7:04. (units (unkno wn) date) unknown) (unknown) (no (unknown) (unknown) ABDOMEN: (units (unkno wn) date) unknown) (unknown) (no (unknown) (unknown) Abdomen: (units (unkno wn) date) Visualized upper unknown) abdomen demonstrates hypoattenuation of the (unknown) (no (unknown) (unknown) Abdominal Nodes: (units (unknown) date) No retroperitoneal unknown) or mesenteric adenopathy by size criteria. (unknown) (no (unknown) (unknown) Accession Number: (units (unknown) date) [id number] unknown) (unknown) (no (unknown) (unknown) Accession Number: (units (unknown) date) [id number] unknown) (unknown) (no (unknown) (unknown) Adrenal Glands: (units (unknown) date) No adrenal unknown) nodules. (unknown) (no (unknown) (unknown) After the (units (unkn own) date) administration of unknown) IV contrast, axial sections were acquired from the (unknown) (no (unknown) (unknown) After the (units (unkn own) date) administration of unknown) intravenous contrast, 2 mm thick sections acquired (unknown) (no (unknown) (unknown) Age/Sex: 66 / M (units (unknown) date) Date of Service: unknown) (unknown) (no (unknown) (unknown) [facility] (units ( unknown) date) [id number] unknown) (unknown) (no (unknown) (unknown) Approved by: (units (u nknown) date) Donavon Fonseca, unknownAna Fuentes on 03/29/2022 at 0:59 (unknown) (no (unknown) (unknown) Approved by: (units (u nknown) date) Donavon Fonseca, unknown) Gina on 03/29/2022 at 1:06 (unknown) (no (unknown) (unknown) Axillae: No (units (un known) date) lymphadenopathy by unknown) size criteria. (unknown) (no (unknown) (unknown) Biliary ducts: No (units (unknown) date) biliary ductal unknown) dilatation. (unknown) (no (unknown) (unknown) Bladder: There is (units (unknown) date) a Damon catheter unknown) within a partially distended urinary (unknown) (no (unknown) (unknown) Bones: Visualized (units (unknown) date) osseous structures unknown) demonstrate no suspicious focal lesions. (unknown) (no (unknown) (unknown) Bones: Visualized (units (unknown) date) osseous structures unknown) demonstrate no suspicious lesions. (unknown) (no (unknown) (unknown) COMPARISON: (units (un known) date) [facility], unknown) CT, CT ABDOMEN PELVIS W CON, 03/28/2022, 23:01. (unknown) (no (unknown) (unknown) [facility]un known[facility] WITH CONTRAST, (unknown) (no (unknown) (unknown) CT Scan Report (units (unknown) date) unknown) (unknown) (no (unknown) (unknown) Chest Wall: (units (un known) date) Unremarkable. unknown) (unknown) (no (unknown) (unknown) : 1955 (units (unknown) date) Acct:[id number] unknown) (unknown) (no (unknown) (unknown) Dictated by: (units (u nknown) date) Donavon Fonseca, unknown) Gina on 03/29/2022 at 0:56 (unknown) (no (unknown) (unknown) Dictated by: (units (u nknown) date) Donavon Fonseca, unknown) Gina on 03/29/2022 at 1:00 (unknown) (no (unknown) (unknown) Esophagus: No (units ( unknown) date) wall thickening. unknown) No hiatal hernia. (unknown) (no (unknown) (unknown) FINDINGS: (units (unkn own) date) unknown) (unknown) (no (unknown) (unknown) For radiation (units ( unknown) date) dose reduction, unknown) the following was used: automated exposure (unknown) (no (unknown) (unknown) Gallbladder: (units (u nknown) date) Within normal unknown) limits without calcified gallstones. (unknown) (no (unknown) (unknown) Heart: Heart is (units (unknown) date) normal in size. unknown) (unknown) (no (unknown) (unknown) Heart: Heart size (units (unknown) date) is normal. No unknown) pericardial effusion. (unknown) (no (unknown) (unknown) Hospital, CT, CT (units (unknown) date) ANGIO CHEST PE unknown) PROTOCOL, 11/01/2020, 0:49. (unknown) (no (unknown) (unknown) IMPRESSION: (units (un known) date) unknown) (unknown) (no (unknown) (unknown) INDICATIONS: (units (u nknown) date) abdominal pain unknown) (unknown) (no (unknown) (unknown) INDICATIONS: (units (u nknown) date) chest pain unknown) (unknown) (no (unknown) (unknown) Image quality: (units (unknown) date) Excellent. unknown) (unknown) (no (unknown) (unknown) [facility] (units (unknown) date) unknown) (unknown) (no (unknown) (unknown) [place] (units (unkno wn) date) unknown) (unknown) (no (unknown) (unknown) Kidneys and (units (un known) date) Ureters: No unknown) hydronephrosis. A left renal cortical cyst is noted. (unknown) (no (unknown) (unknown) Liver: There is (units (unknown) date) diffuse unknown) hypoattenuation of the liver consistent with fatty (unknown) (no (unknown) (unknown) Loc: AC 204-1 (units ( unknown) date) unknown) (unknown) (no (unknown) (unknown) [place]: No (units (unknown) date) lymphadenopathy by unknown) size criteria. (unknown) (no (unknown) (unknown) Lung bases: There (units (unknown) date) is atelectasis and unknown) scarring in the right lower lobe. (unknown) (no (unknown) (unknown) Lungs and (units (unkn own) date) Airways: Within unknown) the medial left upper lobe, there is a pulmonary (unknown) (no (unknown) (unknown) Mediastinum and (units (unknown) date) Anisa: No unknown) lymphadenopathy by size criteria. There are calcified (unknown) (no (unknown) (unknown) Miscellaneous: (units (unknown) date) There are small unknown) bilateral fat-containing inguinal hernias. (unknown) (no (unknown) (unknown) Ordering (units (unkno wn) date) Provider: unknown) Umesh Akins MD (unknown) (no (unknown) (unknown) PELVIS: (units (unkno wn) date) unknown) (unknown) (no (unknown) (unknown) PROCEDURE: CT (units ( unknown) date) ABDOMEN PELVIS W unknown) CON (unknown) (no (unknown) (unknown) PROCEDURE: CT (units ( unknown) date) ANGIO CHEST PE unknown) PROTOCOL (unknown) (no (unknown) (unknown) Pancreas: (units (unkn own) date) Unremarkable. unknown) (unknown) (no (unknown) (unknown) Patient: (units (unkno wn) date) Frank Chan MR#: unknown) [id number] (unknown) (no (unknown) (unknown) Pelvic Nodes: No (units (unknown) date) enlarged lymph unknown) nodes. (unknown) (no (unknown) (unknown) Pelvic Organs: (units (unknown) date) Unremarkable. unknown) (unknown) (no (unknown) (unknown) Peritoneum: No (units (unknown) date) abnormal unknown) intraperitoneal fluid. No free air. (unknown) (no (unknown) (unknown) Pleura: No (units (unk nown) date) pneumothorax or unknown) pleural effusions. (unknown) (no (unknown) (unknown) Procedure: CT (units ( unknown) date) abdomen pelvis w unknown) con (unknown) (no (unknown) (unknown) Procedure: CT (units ( unknown) date) angio chest PE unknown) protocol (unknown) (no (unknown) (unknown) Pulmonary (units (unkn own) date) arteries: unknown) Pulmonary arteries are normal in size, and demonstrate no (unknown) (no (unknown) (unknown) Recommend (units (unkn own) date) unknown) (unknown) (no (unknown) (unknown) Signed (units (unkno wn) date) unknown) (unknown) (no (unknown) (unknown) Spleen: Normal in (units (unknown) date) size. unknown) (unknown) (no (unknown) (unknown) Stomach and (units (un known) date) Bowel: Stomach, unknown) small bowel loops, and colon are normal in caliber (unknown) (no (unknown) (unknown) TECHNIQUE: (units (unk nown) date) unknown) (unknown) (no (unknown) (unknown) The trachea (units (un known) date) unknown) (unknown) (no (unknown) (unknown) Thoracic Vessels: (units (unknown) date) The thoracic aorta unknown) is normal in size. (unknown) (no (unknown) (unknown) Thyroid: (units (unkno wn) date) Visualized thyroid unknown) demonstrates no discrete nodules. (unknown) (no (unknown) (unknown) Ventral Wall: No (units (unknown) date) hernia. unknown) (unknown) (no (unknown) (unknown) Vessels: Aorta (units (unknown) date) and inferior vena unknown) cava are normal in size. (unknown) (no (unknown) (unknown) acute (units (unkno wn) date) unknown) (unknown) (no (unknown) (unknown) adjustment of mA (units (unknown) date) and/or kV unknown) according to patient size. (unknown) (no (unknown) (unknown) and central (units (un known) date) airways are unknown) patent. (unknown) (no (unknown) (unknown) and wall (units (unkno wn) date) unknown) (unknown) (no (unknown) (unknown) and/or kV (units (unkn own) date) according to unknown) patient size. (unknown) (no (unknown) (unknown) appendicitis. (units ( unknown) date) unknown) (unknown) (no (unknown) (unknown) are (units (unkno wn) date) unknown) (unknown) (no (unknown) (unknown) bladder. (units (unkno wn) date) unknown) (unknown) (no (unknown) (unknown) changes. Scarring (units (unknown) date) is redemonstrated unknown) within the lung apices. A calcified left (unknown) (no (unknown) (unknown) compared to the (units (unknown) date) prior study. This unknown) extends to the pericardium medially. No (unknown) (no (unknown) (unknown) consistent with (units (unknown) date) fatty unknown) infiltration. (unknown) (no (unknown) (unknown) consolidation. (units (unknown) date) There is dependent unknown) atelectasis bilaterally. A linear region of (unknown) (no (unknown) (unknown) control, (units (unkno wn) date) unknown) (unknown) (no (unknown) (unknown) disease. (units (unkno wn) date) unknown) (unknown) (no (unknown) (unknown) dose reduction, (units (unknown) date) the following was unknown) used: automated exposure control, adjustment (unknown) (no (unknown) (unknown) emphysematous (units ( unknown) date) unknown) (unknown) (no (unknown) (unknown) from the (units (unkno wn) date) unknown) (unknown) (no (unknown) (unknown) further (units (unkno wn) date) evaluation with unknown) PET-CT. (unknown) (no (unknown) (unknown) infiltration. (units ( unknown) date) unknown) (unknown) (no (unknown) (unknown) intensity (units (unkn own) date) unknown) (unknown) (no (unknown) (unknown) intraluminal (units (u nknown) date) filling defects to unknown) suggest central pulmonary embolism. (unknown) (no (unknown) (unknown) is (units (unkno wn) date) unknown) (unknown) (no (unknown) (unknown) lung bases (units (unk nown) date) unknown) (unknown) (no (unknown) (unknown) measuring up to (units (unknown) date) 1.6 cm on series unknown) 5, image 127 with spiculated margins which is (unknown) (no (unknown) (unknown) mediastinal and (units (unknown) date) hilar lymph nodes unknown) consistent with sequelae of old granulomatous (unknown) (no (unknown) (unknown) [id number] (units (unknown) date) centrilobular unknown) emphysematous changes and mild paraseptal (unknown) (no (unknown) (unknown) new (units (unkno wn) date) unknown) (unknown) (no (unknown) (unknown) nodule is (units (unkn own) date) redemonstrated unknown) consistent with sequelae of old granulomas disease. (unknown) (no (unknown) (unknown) nodule (units (unkno wn) date) unknown) (unknown) (no (unknown) (unknown) nonspecific but (units (unknown) date) suspicious for a unknown) neoplasm such as bronchogenic carcinoma. (unknown) (no (unknown) (unknown) of mA (units (unkno wn) date) unknown) (unknown) (no (unknown) (unknown) or atelectasis is (units (unknown) date) also demonstrated unknown) in the right lower lobe posteriorly. There (unknown) (no (unknown) (unknown) present (units (unkno wn) date) unknown) (unknown) (no (unknown) (unknown) projection (MIP) (units (unknown) date) coronal and unknown) sagittal reformats were then acquired through the (unknown) (no (unknown) (unknown) pulmonary apices (units (unknown) date) to the posterior unknown) costophrenic angles. 3-dimensional maximum (unknown) (no (unknown) (unknown) radiation (units (unkn own) date) unknown) (unknown) (no (unknown) (unknown) scarring (units (unkno wn) date) unknown) (unknown) (no (unknown) (unknown) thickness. The (units (unknown) date) appendix is normal unknown) in appearance. Colonic diverticulosis is (unknown) (no (unknown) (unknown) thorax. (units (unkno wn) date) unknown) (unknown) (no (unknown) (unknown) to the pubic (units (u nknown) date) symphysis. Coronal unknown) and sagittal reformats were performed. For (unknown) (no (unknown) (unknown) upper lobe (units (unk nown) date) unknown) (unknown) (no (unknown) (unknown) visualized liver (units (unknown) date) unknown) (unknown) (no (unknown) (unknown) without acute (units ( unknown) date) diverticulitis. unknown) Result panel 567 (unknown) (no (unknown) (unknown) (no value) (units (unk nown) date) unknown) (unknown) (no (unknown) (unknown) (Aleve) (units (unkno wn) date) unknown) (unknown) (no (unknown) (unknown) (past 8 hours): (units (unknown) date) unknown) (unknown) (no (unknown) (unknown) -CT abdomen (units (un known) date) ordered unknown) (unknown) (no (unknown) (unknown) -MRI lumbar (units (un known) date) spine unknown) (unknown) (no (unknown) (unknown) -PT eval (units (unkno wn) date) unknown) (unknown) (no (unknown) (unknown) -also possibly (units (unknown) date) secondary to back unknown) pathology (unknown) (no (unknown) (unknown) -check a1c (units (unk nown) date) unknown) (unknown) (no (unknown) (unknown) -check etoh (units (un known) date) level unknown) (unknown) (no (unknown) (unknown) -continue to (units (u nknown) date) trend troponins unknown) (unknown) (no (unknown) (unknown) -encourage (units (unk nown) date) cessation unknown) (unknown) (no (unknown) (unknown) -etiology likely (units (unknown) date) BPH unknown) (unknown) (no (unknown) (unknown) -has denied in (units (unknown) date) past and had unknown) elevated etoh level (unknown) (no (unknown) (unknown) -initial glucose (units (unknown) date) >390 unknown) (unknown) (no (unknown) (unknown) -likely will (units (u nknown) date) need to dc with unknown) damon and follow up with urology (unknown) (no (unknown) (unknown) -lipase only (units (u nknown) date) mildly elevated unknown) (unknown) (no (unknown) (unknown) -lumbar MRI (units (un known) date) ordered unknown) (unknown) (no (unknown) (unknown) -no recent (units (unk nown) date) cardiac workup unknown) (unknown) (no (unknown) (unknown) -now has lower (units (unknown) date) extremity unknown) numbness, weakness, urinary retention, and question of (unknown) (no (unknown) (unknown) -order CT (units (unkn own) date) abdomen/pelvis unknown) for further evaluation (unknown) (no (unknown) (unknown) -ordered (units (unkno wn) date) aspirin/statin unknown) (unknown) (no (unknown) (unknown) -ordered for (units (u nknown) date) pain meds unknown) (unknown) (no (unknown) (unknown) -ordered nuc (units (u nknown) date) stress test unknown) (unknown) (no (unknown) (unknown) -patient denies (units (unknown) date) alcohol abuse unknown) (unknown) (no (unknown) (unknown) -patient has (units (u nknown) date) chronic back pain unknown) from previous injury (unknown) (no (unknown) (unknown) -patient has (units (u nknown) date) history of CAD unknown) s/p AK (unknown) (no (unknown) (unknown) -patient not (units (u nknown) date) taking any unknown) medications (unknown) (no (unknown) (unknown) -plan to start (units (unknown) date) flomax prior to unknown) DC if MRI negative (unknown) (no (unknown) (unknown) -possibly (units (unkn own) date) secondary to unknown) diabetes (unknown) (no (unknown) (unknown) -question if (units (u nknown) date) patient uses unknown) alcohol (unknown) (no (unknown) (unknown) -rule out spinal (units (unknown) date) process with MRI unknown) (unknown) (no (unknown) (unknown) -start insulin (units (unknown) date) sliding scale unknown) (unknown) (no (unknown) (unknown) -trend daily (units (u nknown) date) unknown) (unknown) (no (unknown) (unknown) -workup diabetes (units (unknown) date) as above unknown) (unknown) (no (unknown) (unknown) 1. Chest pain (units ( unknown) date) unknown) (unknown) (no (unknown) (unknown) 10. (units (unkno wn) date) Transaminitis unknown) (unknown) (no (unknown) (unknown) 03/28/22 (units (unkno wn) date) 03/28/22 03/28/22 unknown) (unknown) (no (unknown) (unknown) 03/28/22 (units (unkno wn) date) 03/28/22 unknown) (unknown) (no (unknown) (unknown) 03/28/22 19:00 (units (unknown) date) unknown) (unknown) (no (unknown) (unknown) 03/28/22 2208 (units ( unknown) date) unknown) (unknown) (no (unknown) (unknown) 03/28/22 (units (unkno wn) date) unknown) (unknown) (no (unknown) (unknown) 14 systems (units (unk nown) date) reviewed and unknown) negative aside from what is noted in HPI (unknown) (no (unknown) (unknown) 18:51 03/28/22 (units (unknown) date) unknown) (unknown) (no (unknown) (unknown) 18:54 03/28/22 (units (unknown) date) unknown) (unknown) (no (unknown) (unknown) 18:54 (units (unkno wn) date) unknown) (unknown) (no (unknown) (unknown) 19:00 03/28/22 (units (unknown) date) unknown) (unknown) (no (unknown) (unknown) 19:00 19:00 (units (un known) date) 19:00 unknown) (unknown) (no (unknown) (unknown) 19:00 20:16 (units (un known) date) unknown) (unknown) (no (unknown) (unknown) 19:30 03/28/22 (units (unknown) date) unknown) (unknown) (no (unknown) (unknown) 19:30 (units (unkno wn) date) unknown) (unknown) (no (unknown) (unknown) 19:50 03/28/22 (units (unknown) date) unknown) (unknown) (no (unknown) (unknown) 19:50 (units (unkno wn) date) unknown) (unknown) (no (unknown) (unknown) 2847 (units (unkno wn) date) unknown) (unknown) (no (unknown) (unknown) 3. Type 2 (units (unkn own) date) Diabetes unknown) (unknown) (no (unknown) (unknown) 4. Back pain (units (u nknown) date) unknown) (unknown) (no (unknown) (unknown) 5. Lower (units (unkno wn) date) extremity unknown) numbness (unknown) (no (unknown) (unknown) 6. Urinary (units (unk nown) date) retention, acute unknown) (unknown) (no (unknown) (unknown) 7. Abdominal (units (u nknown) date) pain unknown) (unknown) (no (unknown) (unknown) 8. Active smoker (units (unknown) date) unknown) (unknown) (no (unknown) (unknown) 9. Possible (units (un known) date) alcohol abuse unknown) (unknown) (no (unknown) (unknown) ABD: soft, (units (unk nown) date) tender to unknown) palpation, no rebound/guarding, no organomegaly, normal (unknown) (no (unknown) (unknown) ALT 90 H (units (unkno wn) date) unknown) (unknown) (no (unknown) (unknown) ALT (units (unkno wn) date) unknown) (unknown) (no (unknown) (unknown) AST 91 H (units (unkno wn) date) unknown) (unknown) (no (unknown) (unknown) AST (units (unkno wn) date) unknown) (unknown) (no (unknown) (unknown) Age/Sex: 66 / M (units (unknown) date) unknown) (unknown) (no (unknown) (unknown) Albumin 4.3 (units (un known) date) unknown) (unknown) (no (unknown) (unknown) Albumin (units (unkno wn) date) unknown) (unknown) (no (unknown) (unknown) Albumin/Globulin (units (unknown) date) Ratio 1.3 unknown) (unknown) (no (unknown) (unknown) Albumin/Globulin (units (unknown) date) Ratio unknown) (unknown) (no (unknown) (unknown) Alkaline (units (unkno wn) date) Phosphatase 129 H unknown) (unknown) (no (unknown) (unknown) Alkaline (units (unkno wn) date) Phosphatase unknown) (unknown) (no (unknown) (unknown) Allergies (units (unkn own) date) unknown) (unknown) (no (unknown) (unknown) Allergy/AdvReac (units (unknown) date) Type Severity unknown) Reaction Status Date / Time (unknown) (no (unknown) (unknown) Amorphous (units (unkn own) date) Sediment 1 unknown) (unknown) (no (unknown) (unknown) Amorphous (units (unkn own) date) Sediment unknown) (unknown) (no (unknown) (unknown) Aspirin Child 81 (units (unknown) date) mg PO DAILY unknown) 11/01/20 11/01/20 History (unknown) (no (unknown) (unknown) Assessment + (units (u nknown) date) Plan narrative: unknown) (unknown) (no (unknown) (unknown) Assessment + (units (u nknown) date) Plan unknown) (unknown) (no (unknown) (unknown) BUN 5 L (units (unkno wn) date) unknown) (unknown) (no (unknown) (unknown) BUN (units (unkno wn) date) unknown) (unknown) (no (unknown) (unknown) BUN/Creatinine (units (unknown) date) Ratio 7.0 unknown) (unknown) (no (unknown) (unknown) BUN/Creatinine (units (unknown) date) Ratio unknown) (unknown) (no (unknown) (unknown) Baso # (Auto) 0 (units (unknown) date) unknown) (unknown) (no (unknown) (unknown) Baso # (Auto) (units ( unknown) date) unknown) (unknown) (no (unknown) (unknown) Baso % (Auto) (units ( unknown) date) 0.8 unknown) (unknown) (no (unknown) (unknown) Baso % (Auto) (units ( unknown) date) unknown) (unknown) (no (unknown) (unknown) Blood Pressure (units (unknown) date) 134/75 111/69 unknown) (unknown) (no (unknown) (unknown) Blood Pressure (units (unknown) date) 138/84 unknown) (unknown) (no (unknown) (unknown) Blood Pressure (units (unknown) date) 157/83 H unknown) (unknown) (no (unknown) (unknown) CK-MB (CK-2) Rel (units (unknown) date) Index TNP unknown) (unknown) (no (unknown) (unknown) CK-MB (CK-2) Rel (units (unknown) date) Index unknown) (unknown) (no (unknown) (unknown) CK-MB (CK-2) TNP (units (unknown) date) unknown) (unknown) (no (unknown) (unknown) CK-MB (CK-2) (units (u nknown) date) unknown) (unknown) (no (unknown) (unknown) CODE: Full (units (unk nown) date) unknown) (unknown) (no (unknown) (unknown) CV: regular rate (units (unknown) date) and rhythm, no unknown) murmurs (unknown) (no (unknown) (unknown) Calcium 8.3 L (units ( unknown) date) unknown) (unknown) (no (unknown) (unknown) Calcium (units (unkno wn) date) unknown) (unknown) (no (unknown) (unknown) Carbon Dioxide (units (unknown) date) 17 L unknown) (unknown) (no (unknown) (unknown) Carbon Dioxide (units (unknown) date) unknown) (unknown) (no (unknown) (unknown) Chief complaint: (units (unknown) date) Bilateral LE, unknown) pelvis and chest wall pain (unknown) (no (unknown) (unknown) Chloride 105 (units (u nknown) date) unknown) (unknown) (no (unknown) (unknown) Chloride (units (unkno wn) date) unknown) (unknown) (no (unknown) (unknown) Coronary artery (units (unknown) date) disease unknown) (unknown) (no (unknown) (unknown) Creatinine 0.71 (units (unknown) date) unknown) (unknown) (no (unknown) (unknown) Creatinine 0.71. (units (unknown) date) Glucose 390. unknown) Lipase 648. AST/ALT 91/90. UA negative. Chest xray (unknown) (no (unknown) (unknown) Creatinine (units (unk nown) date) unknown) (unknown) (no (unknown) (unknown) Critical Care (units ( unknown) date) time: unknown) (unknown) (no (unknown) (unknown) D-Dimer 1528 H (units (unknown) date) unknown) (unknown) (no (unknown) (unknown) D-Dimer (units (unkno wn) date) unknown) (unknown) (no (unknown) (unknown) : 1955 (units (unknown) date) Acct:[id number] unknown) (unknown) (no (unknown) (unknown) Date Patient (units (u nknown) date) Seen: 03/28/22 unknown) (unknown) (no (unknown) (unknown) Date of Service: (units (unknown) date) 03/28/22 unknown) (unknown) (no (unknown) (unknown) Diabetes type 2, (units (unknown) date) uncontrolled unknown) (unknown) (no (unknown) (unknown) EXT: warm and (units ( unknown) date) well perfused unknown) with no edema (unknown) (no (unknown) (unknown) Elevated blood (units (unknown) date) alcohol level unknown) (unknown) (no (unknown) (unknown) Environment (units (un known) date) unknown) (unknown) (no (unknown) (unknown) Eos # (Auto) 100 (units (unknown) date) unknown) (unknown) (no (unknown) (unknown) Eos # (Auto) (units (u nknown) date) unknown) (unknown) (no (unknown) (unknown) Eos % (Auto) 2.0 (units (unknown) date) unknown) (unknown) (no (unknown) (unknown) Eos % (Auto) (units (u nknown) date) unknown) (unknown) (no (unknown) (unknown) Estimated GFR > (units (unknown) date) 60 unknown) (unknown) (no (unknown) (unknown) Estimated GFR (units ( unknown) date) unknown) (unknown) (no (unknown) (unknown) Exam Narrative: (units (unknown) date) unknown) (unknown) (no (unknown) (unknown) Exam (units (unkno wn) date) unknown) (unknown) (no (unknown) (unknown) Family + Social (units (unknown) date) History unknown) (unknown) (no (unknown) (unknown) Family History (units (unknown) date) (Reviewed unknown) 03/28/22 @ 21:52 by Umesh Akins MD) (unknown) (no (unknown) (unknown) Father (units (unknown) date) Lung cancer unknown) (unknown) (no (unknown) (unknown) Feels Safe in (units ( unknown) date) Current Yes unknown) (unknown) (no (unknown) (unknown) GEN: appears in (units (unknown) date) pain unknown) (unknown) (no (unknown) (unknown) Globulin 3.3 (units (u nknown) date) unknown) (unknown) (no (unknown) (unknown) Globulin (units (unkno wn) date) unknown) (unknown) (no (unknown) (unknown) Glucose 390 H (units ( unknown) date) unknown) (unknown) (no (unknown) (unknown) Glucose (units (unkno wn) date) unknown) (unknown) (no (unknown) (unknown) H/O heart artery (units (unknown) date) stent unknown) (unknown) (no (unknown) (unknown) HEENT: moist (units (u nknown) date) mucous membranes, unknown) PERRL (unknown) (no (unknown) (unknown) Hct 47.6 (units (unkno wn) date) unknown) (unknown) (no (unknown) (unknown) Hct (units (unkno wn) date) unknown) (unknown) (no (unknown) (unknown) Hgb 16.8 (units (unkno wn) date) unknown) (unknown) (no (unknown) (unknown) Hgb (units (unkno wn) date) unknown) (unknown) (no (unknown) (unknown) History + (units (unkn own) date) Physical Report unknown) (unknown) (no (unknown) (unknown) History of (units (unk nown) date) Present Illness unknown) (unknown) (no (unknown) (unknown) Home Medications (units (unknown) date) and Allergies unknown) (unknown) (no (unknown) (unknown) Home Medications (units (unknown) date) unknown) (unknown) (no (unknown) (unknown) I confirm the (units (u nknown) date) patient?s Advance unknown) Care Plan is present, Code status is documented, (unknown) (no (unknown) (unknown) I have utilized (units (unknown) date) all available unknown) resources to reconcile the patient's home (unknown) (no (unknown) (unknown) I spent a total (units (unknown) date) of [] minutes of unknown) critical care time on this patient's care (unknown) (no (unknown) (unknown) In the ED workup (units (unknown) date) was done, vitals unknown) notable for heart rate in the 120s, (unknown) (no (unknown) (unknown) [facility] (units (unknown) date) [address] unknown) [place] [address] (unknown) (no (unknown) (unknown) Laboratory (units (unk nown) date) Results - last 24 unknown) hr (unknown) (no (unknown) (unknown) Labs (units (unkno wn) date) unknown) (unknown) (no (unknown) (unknown) Labs: (units (unkno wn) date) unknown) (unknown) (no (unknown) (unknown) Lipase 648 H (units (u nknown) date) unknown) (unknown) (no (unknown) (unknown) Lipase (units (unkno wn) date) unknown) (unknown) (no (unknown) (unknown) Lymph # (Auto) (units (unknown) date) 2200 unknown) (unknown) (no (unknown) (unknown) Lymph # (Auto) (units (unknown) date) unknown) (unknown) (no (unknown) (unknown) Lymph % (Auto) (units (unknown) date) 34.0 unknown) (unknown) (no (unknown) (unknown) Lymph % (Auto) (units (unknown) date) unknown) (unknown) (no (unknown) (unknown) MCH 30.7 (units (unkno wn) date) unknown) (unknown) (no (unknown) (unknown) MCH (units (unkno wn) date) unknown) (unknown) (no (unknown) (unknown) MCHC 35.2 (units (unkn own) date) unknown) (unknown) (no (unknown) (unknown) MCHC (units (unkno wn) date) unknown) (unknown) (no (unknown) (unknown) MCV 87.2 (units (unkno wn) date) unknown) (unknown) (no (unknown) (unknown) MCV (units (unkno wn) date) unknown) (unknown) (no (unknown) (unknown) MIPS - Admit (units (u nknown) date) unknown) (unknown) (no (unknown) (unknown) Magnesium 1.8 (units ( unknown) date) unknown) (unknown) (no (unknown) (unknown) Magnesium (units (unkn own) date) unknown) (unknown) (no (unknown) (unknown) Medical History (units (unknown) date) (Reviewed unknown) 03/28/22 @ 21:52 by Umesh Akins MD) (unknown) (no (unknown) (unknown) Medication (units (unk nown) date) Instructions unknown) Recorded Confirmed Type (unknown) (no (unknown) (unknown) Meds (units (unkno wn) date) unknown) (unknown) (no (unknown) (unknown) [place] # (Auto) (units ( unknown) date) 400 unknown) (unknown) (no (unknown) (unknown) [place] # (Auto) (units ( unknown) date) unknown) (unknown) (no (unknown) (unknown) [place] % (Auto) (units ( unknown) date) 6.3 unknown) (unknown) (no (unknown) (unknown) [place] % (Auto) (units ( unknown) date) unknown) (unknown) (no (unknown) (unknown) [facility] (units (unknown) date) history unknown unknown) (unknown) (no (unknown) (unknown) Mr. Chan is a (units (unknown) date) 66M with PMH CAD unknown) s/p AK, DM, active tobacco smoker who presents (unknown) (no (unknown) (unknown) Mr. Chan is a (units (unknown) date) 66M with PMH CAD, unknown) DM who presents with chest pain, back pain, (unknown) (no (unknown) (unknown) NECK: trachea (units ( unknown) date) midline, no JVD unknown) (unknown) (no (unknown) (unknown) NEURO: awake, (units ( unknown) date) alert oriented, unknown) lower extremity numbness (unknown) (no (unknown) (unknown) Narrative (units (unkn own) date) unknown) (unknown) (no (unknown) (unknown) Narrative: (units (unk nown) date) unknown) (unknown) (no (unknown) (unknown) Neut # (Auto) (units ( unknown) date) 3700 unknown) (unknown) (no (unknown) (unknown) Neut # (Auto) (units ( unknown) date) unknown) (unknown) (no (unknown) (unknown) Neut % (Auto) (units ( unknown) date) 56.9 unknown) (unknown) (no (unknown) (unknown) Neut % (Auto) (units ( unknown) date) unknown) (unknown) (no (unknown) (unknown) No Known Drug (units ( unknown) date) Allergies Allergy unknown) Verified 10/31/20 23:10 (unknown) (no (unknown) (unknown) Objective (units (unkn own) date) unknown) (unknown) (no (unknown) (unknown) Oxygen Delivery (units (unknown) date) Method Room Air unknown) (unknown) (no (unknown) (unknown) Oxygen Delivery (units (unknown) date) Method unknown) (unknown) (no (unknown) (unknown) PULM: clear (units (un known) date) bilaterally, no unknown) wheezes, rhonchi, rales (unknown) (no (unknown) (unknown) Patient History (units (unknown) date) unknown) (unknown) (no (unknown) (unknown) Patient: (units (unkno wn) date) Frank Chan MR#: unknown) [id number] (unknown) (no (unknown) (unknown) Plt Count 154 (units ( unknown) date) unknown) (unknown) (no (unknown) (unknown) Plt Count (units (unkn own) date) unknown) (unknown) (no (unknown) (unknown) Potassium 5.4 H (units (unknown) date) unknown) (unknown) (no (unknown) (unknown) Potassium (units (unkn own) date) unknown) (unknown) (no (unknown) (unknown) Prior Living (units (u nknown) date) Arrangements unknown) Apartment/Condo (unknown) (no (unknown) (unknown) Provider: (units (unkn own) date) Umesh Akins MD unknown) (unknown) (no (unknown) (unknown) Proxy: [place] (units (un known) date) [place], unknown) family (unknown) (no (unknown) (unknown) Pulse Oximetry (units (unknown) date) 95 95 unknown) (unknown) (no (unknown) (unknown) Pulse Oximetry (units (unknown) date) 95 96 unknown) (unknown) (no (unknown) (unknown) Pulse Oximetry (units (unknown) date) 95 unknown) (unknown) (no (unknown) (unknown) Pulse Rate 102 H (units (unknown) date) 97 H unknown) (unknown) (no (unknown) (unknown) Pulse Rate 104 H (units (unknown) date) unknown) (unknown) (no (unknown) (unknown) Pulse Rate 120 H (units (unknown) date) 107 H unknown) (unknown) (no (unknown) (unknown) Quality (units (unkno wn) date) unknown) (unknown) (no (unknown) (unknown) RBC 5.46 (units (unkno wn) date) unknown) (unknown) (no (unknown) (unknown) RBC (units (unkno wn) date) unknown) (unknown) (no (unknown) (unknown) RDW 14.1 (units (unkno wn) date) unknown) (unknown) (no (unknown) (unknown) RDW (units (unkno wn) date) unknown) (unknown) (no (unknown) (unknown) Respiratory Rate (units (unknown) date) 11 L unknown) (unknown) (no (unknown) (unknown) Respiratory Rate (units (unknown) date) 26 H unknown) (unknown) (no (unknown) (unknown) Respiratory Rate (units (unknown) date) unknown) (unknown) (no (unknown) (unknown) Result Diagrams: (units (unknown) date) unknown) (unknown) (no (unknown) (unknown) Review of (units (unkn own) date) Systems unknown) (unknown) (no (unknown) (unknown) SARS-CoV-2 (PCR) (units (unknown) date) Negative unknown) (unknown) (no (unknown) (unknown) SARS-CoV-2 (PCR) (units (unknown) date) unknown) (unknown) (no (unknown) (unknown) SKIN: petechia (units (unknown) date) in lower unknown) extremities (unknown) (no (unknown) (unknown) Safety + (units (unkno wn) date) Behavioral: unknown) (unknown) (no (unknown) (unknown) Signed (units (unkno wn) date) By:<Electronicall unknown) y signed by Umesh Akins MD> (unknown) (no (unknown) (unknown) Smoking Status (units (unknown) date) Current every day unknown) smoker (unknown) (no (unknown) (unknown) Social History: (units (unknown) date) unknown) (unknown) (no (unknown) (unknown) Sodium 138 (units (unk nown) date) unknown) (unknown) (no (unknown) (unknown) Sodium (units (unkno wn) date) unknown) (unknown) (no (unknown) (unknown) Substance Use (units ( unknown) date) Type does not use unknown) (unknown) (no (unknown) (unknown) Surgical History (units (unknown) date) (Reviewed unknown) 03/28/22 @ 21:52 by Umesh Akins MD) (unknown) (no (unknown) (unknown) Surrogate (units (unkn own) date) decision maker is unknown) in patient?s record [If Yes, STOP here]: Yes (unknown) (no (unknown) (unknown) Time Patient (units (u nknown) date) Seen: 20:00 unknown) (unknown) (no (unknown) (unknown) Time Spent With (units (unknown) date) Patient unknown) (unknown) (no (unknown) (unknown) Tobacco + (units (unkn own) date) Substance use: unknown) (unknown) (no (unknown) (unknown) Tobacco type (units (u nknown) date) cigarettes unknown) (unknown) (no (unknown) (unknown) Total Bilirubin (units (unknown) date) 1.1 unknown) (unknown) (no (unknown) (unknown) Total Bilirubin (units (unknown) date) unknown) (unknown) (no (unknown) (unknown) Total Creatine (units (unknown) date) Kinase 38 L unknown) (unknown) (no (unknown) (unknown) Total Creatine (units (unknown) date) Kinase unknown) (unknown) (no (unknown) (unknown) Total Protein (units ( unknown) date) 7.6 unknown) (unknown) (no (unknown) (unknown) Total Protein (units ( unknown) date) unknown) (unknown) (no (unknown) (unknown) Troponin I < (units (u nknown) date) 0.012 unknown) (unknown) (no (unknown) (unknown) Troponin I (units (unk nown) date) unknown) (unknown) (no (unknown) (unknown) Ur Culture (units (unk nown) date) Indicated? Cult unknown) not indicated (unknown) (no (unknown) (unknown) Ur Culture (units (unk nown) date) Indicated? unknown) (unknown) (no (unknown) (unknown) Ur Leukocyte (units (u nknown) date) Esterase Negative unknown) (unknown) (no (unknown) (unknown) Ur Leukocyte (units (u nknown) date) Esterase unknown) (unknown) (no (unknown) (unknown) Ur Specific (units (un known) date) [place] <=1.005 unknown) (unknown) (no (unknown) (unknown) Ur Specific (units (un known) date) [place] unknown) (unknown) (no (unknown) (unknown) Urine Appearance (units (unknown) date) Clear unknown) (unknown) (no (unknown) (unknown) Urine Appearance (units (unknown) date) unknown) (unknown) (no (unknown) (unknown) Urine Bacteria (units (unknown) date) None seen unknown) (unknown) (no (unknown) (unknown) Urine Bacteria (units (unknown) date) unknown) (unknown) (no (unknown) (unknown) Urine Bilirubin (units (unknown) date) Negative unknown) (unknown) (no (unknown) (unknown) Urine Bilirubin (units (unknown) date) unknown) (unknown) (no (unknown) (unknown) Urine Color (units (un known) date) Yellow unknown) (unknown) (no (unknown) (unknown) Urine Color (units (un known) date) unknown) (unknown) (no (unknown) (unknown) Urine Glucose (units ( unknown) date) (UA) 3+ H unknown) (unknown) (no (unknown) (unknown) Urine Glucose (units ( unknown) date) (UA) unknown) (unknown) (no (unknown) (unknown) Urine Ketones (units ( unknown) date) Negative unknown) (unknown) (no (unknown) (unknown) Urine Ketones (units ( unknown) date) unknown) (unknown) (no (unknown) (unknown) Urine Nitrate (units ( unknown) date) Negative unknown) (unknown) (no (unknown) (unknown) Urine Nitrate (units ( unknown) date) unknown) (unknown) (no (unknown) (unknown) Urine Occult (units (u nknown) date) Blood Negative unknown) (unknown) (no (unknown) (unknown) Urine Occult (units (u nknown) date) Blood unknown) (unknown) (no (unknown) (unknown) Urine Protein (units ( unknown) date) Negative unknown) (unknown) (no (unknown) (unknown) Urine Protein (units ( unknown) date) unknown) (unknown) (no (unknown) (unknown) Urine RBC (units (unkn own) date) 0-1/hpf unknown) (unknown) (no (unknown) (unknown) Urine RBC (units (unkn own) date) unknown) (unknown) (no (unknown) (unknown) Urine (units (unkno wn) date) Urobilinogen 0.2 unknown) (unknown) (no (unknown) (unknown) Urine (units (unkno wn) date) Urobilinogen unknown) (unknown) (no (unknown) (unknown) Urine WBC None (units (unknown) date) seen unknown) (unknown) (no (unknown) (unknown) Urine WBC (units (unkn own) date) unknown) (unknown) (no (unknown) (unknown) Urine pH 5.0 (units (u nknown) date) unknown) (unknown) (no (unknown) (unknown) Urine pH (units (unkno wn) date) unknown) (unknown) (no (unknown) (unknown) Vital Signs (units (un known) date) unknown) (unknown) (no (unknown) (unknown) WBC 6.5 (units (unkno wn) date) unknown) (unknown) (no (unknown) (unknown) WBC (units (unkno wn) date) unknown) (unknown) (no (unknown) (unknown) [Embedded Image (units (unknown) date) Not Available] unknown) (unknown) (no (unknown) (unknown) abdominal pain. (units (unknown) date) unknown) (unknown) (no (unknown) (unknown) alcohol intake (units (unknown) date) former unknown) (unknown) (no (unknown) (unknown) also is (units (unkno wn) date) complaining of unknown) generalized abdominal pain with no nausea, vomiting, or (unknown) (no (unknown) (unknown) associated (units (unk nown) date) shortness of unknown) breath. No cough/fevers. He also complains of chronic (unknown) (no (unknown) (unknown) atorvastatin 40 (units (unknown) date) mg tablet unknown) (Lipitor) 40 mg PO DAILY 10/31/20 11/01/20 History (unknown) (no (unknown) (unknown) bowel sounds (units (u nknown) date) unknown) (unknown) (no (unknown) (unknown) capsule (units (unkno wn) date) unknown) (unknown) (no (unknown) (unknown) diarrhea. (units (unkn own) date) unknown) (unknown) (no (unknown) (unknown) extremity (units (unkn own) date) numbness, and may unknown) have had an episode of incontinence in the past. He (unknown) (no (unknown) (unknown) fenofibrate (units (un known) date) micronized 134 mg unknown) 134 mg PO DAILY 11/01/20 11/01/20 History (unknown) (no (unknown) (unknown) has had chronic (units (unknown) date) back pain after unknown) an injury decades ago and has significant (unknown) (no (unknown) (unknown) heartburn. It is (units (unknown) date) pressure like unknown) pain in a band across his chest, with some (unknown) (no (unknown) (unknown) household (units (unkn own) date) members unknown) significant other (unknown) (no (unknown) (unknown) incontinence (units (u nknown) date) unknown) (unknown) (no (unknown) (unknown) low back pain, (units (unknown) date) which is now unknown) radiating to his legs. He has had chronic lower (unknown) (no (unknown) (unknown) medications and (units (unknown) date) admitted for unknown) further treatment. (unknown) (no (unknown) (unknown) medications (units (un known) date) currently and unknown) does not follow up with any physician or PCP. He also (unknown) (no (unknown) (unknown) medications (units (un known) date) unknown) (unknown) (no (unknown) (unknown) metformin 500 mg (units (unknown) date) tablet 500 mg PO unknown) BID 10/31/20 11/01/20 History (unknown) (no (unknown) (unknown) metoprolol (units (unk nown) date) succinate 25 mg unknown) 25 mg PO DAILY 10/31/20 11/01/20 History (unknown) (no (unknown) (unknown) mobility issues. (units (unknown) date) He comes in to unknown) the hospital today with complaints of chest (unknown) (no (unknown) (unknown) naproxen sodium (units (unknown) date) 220 mg capsule unknown) 220 mg PO BID 03/28/22 03/28/22 History (unknown) (no (unknown) (unknown) oxycodone 5 mg (units (unknown) date) tablet 5 mg PO unknown) Q8HR PRN Pain. 10/31/20 11/01/20 History (unknown) (no (unknown) (unknown) pain. This has (units (unknown) date) been going on a unknown) couple days. He thought it was possibly (unknown) (no (unknown) (unknown) pantoprazole 40 (units (unknown) date) mg PO BID ##0 unknown) 11/01/20 11/01/20 Rx (unknown) (no (unknown) (unknown) respiratory rate (units (unknown) date) in the 20s. Labs unknown) notable for WBC 6.5, hgb 16.8, plts 155. (unknown) (no (unknown) (unknown) tablet,extended (units (unknown) date) release 24 hr unknown) (unknown) (no (unknown) (unknown) today; this time (units (unknown) date) is exclusive of unknown) procedural time. (unknown) (no (unknown) (unknown) with multiple (units ( unknown) date) complaints. He unknown) has a history of CAD s/p AK in 2012. He takes no (unknown) (no (unknown) (unknown) with no acute (units ( unknown) date) process. EKG unknown) shows no acute ischemia. He was ordered for pain Result panel 568 (unknown) (no date) (unknown) (unknown) 225 mg/dl (unkn own) (unknown) (no date) (unknown) (unknown) 225 mg/dl (unkn own) Result panel 569 (unknown) (no (unknown) (unknown) (no value) (units (unk nown) date) unknown) (unknown) (no (unknown) (unknown) > 03/29/22 0112 (units (unknown) date) unknown) (unknown) (no (unknown) (unknown) (Aleve) (units (unkno wn) date) unknown) (unknown) (no (unknown) (unknown) (past 8 hours): (units (unknown) date) unknown) (unknown) (no (unknown) (unknown) ADDENDUM (units (u nknown) date) unknown) (unknown) (no (unknown) (unknown) -CT abdomen (units (un known) date) ordered unknown) (unknown) (no (unknown) (unknown) -MRI lumbar (units (un known) date) spine unknown) (unknown) (no (unknown) (unknown) -PT eval (units (unkno wn) date) unknown) (unknown) (no (unknown) (unknown) -also possibly (units (unknown) date) secondary to back unknown) pathology (unknown) (no (unknown) (unknown) -check a1c (units (unk nown) date) unknown) (unknown) (no (unknown) (unknown) -check etoh (units (un known) date) level unknown) (unknown) (no (unknown) (unknown) -continue to (units (u nknown) date) trend troponins unknown) (unknown) (no (unknown) (unknown) -encourage (units (unk nown) date) cessation unknown) (unknown) (no (unknown) (unknown) -etiology likely (units (unknown) date) BPH unknown) (unknown) (no (unknown) (unknown) -has denied in (units (unknown) date) past and had unknown) elevated etoh level (unknown) (no (unknown) (unknown) -initial glucose (units (unknown) date) >390 unknown) (unknown) (no (unknown) (unknown) -likely will (units (u nknown) date) need to dc with unknown) damon and follow up with urology (unknown) (no (unknown) (unknown) -lipase only (units (u nknown) date) mildly elevated unknown) (unknown) (no (unknown) (unknown) -lumbar MRI (units (un known) date) ordered unknown) (unknown) (no (unknown) (unknown) -no recent (units (unk nown) date) cardiac workup unknown) (unknown) (no (unknown) (unknown) -now has lower (units (unknown) date) extremity unknown) numbness, weakness, urinary retention, and question of (unknown) (no (unknown) (unknown) -order CT (units (unkn own) date) abdomen/pelvis unknown) for further evaluation (unknown) (no (unknown) (unknown) -ordered (units (unkno wn) date) aspirin/statin unknown) (unknown) (no (unknown) (unknown) -ordered for (units (u nknown) date) pain meds unknown) (unknown) (no (unknown) (unknown) -ordered nuc (units (u nknown) date) stress test unknown) (unknown) (no (unknown) (unknown) -patient denies (units (unknown) date) alcohol abuse unknown) (unknown) (no (unknown) (unknown) -patient has (units (u nknown) date) chronic back pain unknown) from previous injury (unknown) (no (unknown) (unknown) -patient has (units (u nknown) date) history of CAD unknown) s/p AK (unknown) (no (unknown) (unknown) -patient not (units (u nknown) date) taking any unknown) medications (unknown) (no (unknown) (unknown) -plan to start (units (unknown) date) flomax prior to unknown) DC if MRI negative (unknown) (no (unknown) (unknown) -possibly (units (unkn own) date) secondary to unknown) diabetes (unknown) (no (unknown) (unknown) -question if (units (u nknown) date) patient uses unknown) alcohol (unknown) (no (unknown) (unknown) -rule out spinal (units (unknown) date) process with MRI unknown) (unknown) (no (unknown) (unknown) -start insulin (units (unknown) date) sliding scale unknown) (unknown) (no (unknown) (unknown) -trend daily (units (u nknown) date) unknown) (unknown) (no (unknown) (unknown) -workup diabetes (units (unknown) date) as above unknown) (unknown) (no (unknown) (unknown) 1. Chest pain (units ( unknown) date) unknown) (unknown) (no (unknown) (unknown) 10. (units (unkno wn) date) Transaminitis unknown) (unknown) (no (unknown) (unknown) 03/28/22 (units (unkno wn) date) 03/28/22 03/28/22 unknown) (unknown) (no (unknown) (unknown) 03/28/22 (units (unkno wn) date) 03/28/22 unknown) (unknown) (no (unknown) (unknown) 03/28/22 19:00 (units (unknown) date) unknown) (unknown) (no (unknown) (unknown) 03/28/22 2208 (units ( unknown) date) unknown) (unknown) (no (unknown) (unknown) 03/28/22 (units (unkno wn) date) unknown) (unknown) (no (unknown) (unknown) 03/29/22 0112 (units ( unknown) date) unknown) (unknown) (no (unknown) (unknown) 14 systems (units (unk nown) date) reviewed and unknown) negative aside from what is noted in HPI (unknown) (no (unknown) (unknown) 18:51 03/28/22 (units (unknown) date) unknown) (unknown) (no (unknown) (unknown) 18:54 03/28/22 (units (unknown) date) unknown) (unknown) (no (unknown) (unknown) 18:54 (units (unkno wn) date) unknown) (unknown) (no (unknown) (unknown) 19:00 03/28/22 (units (unknown) date) unknown) (unknown) (no (unknown) (unknown) 19:00 19:00 (units (un known) date) 19:00 unknown) (unknown) (no (unknown) (unknown) 19:00 20:16 (units (un known) date) unknown) (unknown) (no (unknown) (unknown) 19:30 03/28/22 (units (unknown) date) unknown) (unknown) (no (unknown) (unknown) 19:30 (units (unkno wn) date) unknown) (unknown) (no (unknown) (unknown) 19:50 03/28/22 (units (unknown) date) unknown) (unknown) (no (unknown) (unknown) 19:50 (units (unkno wn) date) unknown) (unknown) (no (unknown) (unknown) 2847 (units (unkno wn) date) unknown) (unknown) (no (unknown) (unknown) 3. Type 2 (units (unkn own) date) Diabetes unknown) (unknown) (no (unknown) (unknown) 4. Back pain (units (u nknown) date) unknown) (unknown) (no (unknown) (unknown) 5. Lower (units (unkno wn) date) extremity unknown) numbness (unknown) (no (unknown) (unknown) 6. Urinary (units (unk nown) date) retention, acute unknown) (unknown) (no (unknown) (unknown) 7. Abdominal (units (u nknown) date) pain unknown) (unknown) (no (unknown) (unknown) 8. Active smoker (units (unknown) date) unknown) (unknown) (no (unknown) (unknown) 9. Possible (units (un known) date) alcohol abuse unknown) (unknown) (no (unknown) (unknown) ABD: soft, (units (unk nown) date) tender to unknown) palpation, no rebound/guarding, no organomegaly, normal (unknown) (no (unknown) (unknown) ALT 90 H (units (unkno wn) date) unknown) (unknown) (no (unknown) (unknown) ALT (units (unkno wn) date) unknown) (unknown) (no (unknown) (unknown) AST 91 H (units (unkno wn) date) unknown) (unknown) (no (unknown) (unknown) AST (units (unkno wn) date) unknown) (unknown) (no (unknown) (unknown) Addendum (units (unkno wn) date) Documented By: unknown) Umesh Akins MD (unknown) (no (unknown) (unknown) Addendum Signed (units (unknown) date) By: unknown) <Electronically signed by Umesh Akins MD (unknown) (no (unknown) (unknown) Age/Sex: 66 / M (units (unknown) date) unknown) (unknown) (no (unknown) (unknown) Albumin 4.3 (units (un known) date) unknown) (unknown) (no (unknown) (unknown) Albumin (units (unkno wn) date) unknown) (unknown) (no (unknown) (unknown) Albumin/Globulin (units (unknown) date) Ratio 1.3 unknown) (unknown) (no (unknown) (unknown) Albumin/Globulin (units (unknown) date) Ratio unknown) (unknown) (no (unknown) (unknown) Alkaline (units (unkno wn) date) Phosphatase 129 H unknown) (unknown) (no (unknown) (unknown) Alkaline (units (unkno wn) date) Phosphatase unknown) (unknown) (no (unknown) (unknown) Allergies (units (unkn own) date) unknown) (unknown) (no (unknown) (unknown) Allergy/AdvReac (units (unknown) date) Type Severity unknown) Reaction Status Date / Time (unknown) (no (unknown) (unknown) Amorphous (units (unkn own) date) Sediment 1 unknown) (unknown) (no (unknown) (unknown) Amorphous (units (unkn own) date) Sediment unknown) (unknown) (no (unknown) (unknown) Aspirin Child 81 (units (unknown) date) mg PO DAILY unknown) 11/01/20 11/01/20 History (unknown) (no (unknown) (unknown) Assessment + (units (u nknown) date) Plan narrative: unknown) (unknown) (no (unknown) (unknown) Assessment + (units (u nknown) date) Plan unknown) (unknown) (no (unknown) (unknown) BUN 5 L (units (unkno wn) date) unknown) (unknown) (no (unknown) (unknown) BUN (units (unkno wn) date) unknown) (unknown) (no (unknown) (unknown) BUN/Creatinine (units (unknown) date) Ratio 7.0 unknown) (unknown) (no (unknown) (unknown) BUN/Creatinine (units (unknown) date) Ratio unknown) (unknown) (no (unknown) (unknown) Baso # (Auto) 0 (units (unknown) date) unknown) (unknown) (no (unknown) (unknown) Baso # (Auto) (units ( unknown) date) unknown) (unknown) (no (unknown) (unknown) Baso % (Auto) (units ( unknown) date) 0.8 unknown) (unknown) (no (unknown) (unknown) Baso % (Auto) (units ( unknown) date) unknown) (unknown) (no (unknown) (unknown) Blood Pressure (units (unknown) date) 134/75 111/69 unknown) (unknown) (no (unknown) (unknown) Blood Pressure (units (unknown) date) 138/84 unknown) (unknown) (no (unknown) (unknown) Blood Pressure (units (unknown) date) 157/83 H unknown) (unknown) (no (unknown) (unknown) CK-MB (CK-2) Rel (units (unknown) date) Index TNP unknown) (unknown) (no (unknown) (unknown) CK-MB (CK-2) Rel (units (unknown) date) Index unknown) (unknown) (no (unknown) (unknown) CK-MB (CK-2) TNP (units (unknown) date) unknown) (unknown) (no (unknown) (unknown) CK-MB (CK-2) (units (u nknown) date) unknown) (unknown) (no (unknown) (unknown) CODE: Full (units (unk nown) date) unknown) (unknown) (no (unknown) (unknown) CTA chest shows (units (unknown) date) spiculated nodule unknown) concerning for neoplasm. Will need follow up. (unknown) (no (unknown) (unknown) CV: regular rate (units (unknown) date) and rhythm, no unknown) murmurs (unknown) (no (unknown) (unknown) Calcium 8.3 L (units ( unknown) date) unknown) (unknown) (no (unknown) (unknown) Calcium (units (unkno wn) date) unknown) (unknown) (no (unknown) (unknown) Carbon Dioxide (units (unknown) date) 17 L unknown) (unknown) (no (unknown) (unknown) Carbon Dioxide (units (unknown) date) unknown) (unknown) (no (unknown) (unknown) Chief complaint: (units (unknown) date) Bilateral LE, unknown) pelvis and chest wall pain (unknown) (no (unknown) (unknown) Chloride 105 (units (u nknown) date) unknown) (unknown) (no (unknown) (unknown) Chloride (units (unkno wn) date) unknown) (unknown) (no (unknown) (unknown) Coronary artery (units (unknown) date) disease unknown) (unknown) (no (unknown) (unknown) Creatinine 0.71 (units (unknown) date) unknown) (unknown) (no (unknown) (unknown) Creatinine 0.71. (units (unknown) date) Glucose 390. unknown) Lipase 648. AST/ALT 91/90. UA negative. Chest xray (unknown) (no (unknown) (unknown) Creatinine (units (unk nown) date) unknown) (unknown) (no (unknown) (unknown) Critical Care (units ( unknown) date) time: unknown) (unknown) (no (unknown) (unknown) D-Dimer 1528 H (units (unknown) date) unknown) (unknown) (no (unknown) (unknown) D-Dimer (units (unkno wn) date) unknown) (unknown) (no (unknown) (unknown) : 1955 (units (unknown) date) Acct:[id number] unknown) (unknown) (no (unknown) (unknown) Date Patient (units (u nknown) date) Seen: 03/28/22 unknown) (unknown) (no (unknown) (unknown) Date of Service: (units (unknown) date) 03/28/22 unknown) (unknown) (no (unknown) (unknown) Diabetes type 2, (units (unknown) date) uncontrolled unknown) (unknown) (no (unknown) (unknown) EXT: warm and (units ( unknown) date) well perfused unknown) with no edema (unknown) (no (unknown) (unknown) Elevated blood (units (unknown) date) alcohol level unknown) (unknown) (no (unknown) (unknown) Environment (units (un known) date) unknown) (unknown) (no (unknown) (unknown) Eos # (Auto) 100 (units (unknown) date) unknown) (unknown) (no (unknown) (unknown) Eos # (Auto) (units (u nknown) date) unknown) (unknown) (no (unknown) (unknown) Eos % (Auto) 2.0 (units (unknown) date) unknown) (unknown) (no (unknown) (unknown) Eos % (Auto) (units (u nknown) date) unknown) (unknown) (no (unknown) (unknown) Estimated GFR > (units (unknown) date) 60 unknown) (unknown) (no (unknown) (unknown) Estimated GFR (units ( unknown) date) unknown) (unknown) (no (unknown) (unknown) Exam Narrative: (units (unknown) date) unknown) (unknown) (no (unknown) (unknown) Exam (units (unkno wn) date) unknown) (unknown) (no (unknown) (unknown) Family + Social (units (unknown) date) History unknown) (unknown) (no (unknown) (unknown) Family History (units (unknown) date) (Reviewed unknown) 03/28/22 @ 21:52 by Umesh Akins MD) (unknown) (no (unknown) (unknown) Father (units (unknown) date) Lung cancer unknown) (unknown) (no (unknown) (unknown) Feels Safe in (units ( unknown) date) Current Yes unknown) (unknown) (no (unknown) (unknown) GEN: appears in (units (unknown) date) pain unknown) (unknown) (no (unknown) (unknown) Globulin 3.3 (units (u nknown) date) unknown) (unknown) (no (unknown) (unknown) Globulin (units (unkno wn) date) unknown) (unknown) (no (unknown) (unknown) Glucose 390 H (units ( unknown) date) unknown) (unknown) (no (unknown) (unknown) Glucose (units (unkno wn) date) unknown) (unknown) (no (unknown) (unknown) H/O heart artery (units (unknown) date) stent unknown) (unknown) (no (unknown) (unknown) HEENT: moist (units (u nknown) date) mucous membranes, unknown) PERRL (unknown) (no (unknown) (unknown) Hct 47.6 (units (unkno wn) date) unknown) (unknown) (no (unknown) (unknown) Hct (units (unkno wn) date) unknown) (unknown) (no (unknown) (unknown) Hgb 16.8 (units (unkno wn) date) unknown) (unknown) (no (unknown) (unknown) Hgb (units (unkno wn) date) unknown) (unknown) (no (unknown) (unknown) History + (units (unkn own) date) Physical Report unknown) (unknown) (no (unknown) (unknown) History of (units (unk nown) date) Present Illness unknown) (unknown) (no (unknown) (unknown) Home Medications (units (unknown) date) and Allergies unknown) (unknown) (no (unknown) (unknown) Home Medications (units (unknown) date) unknown) (unknown) (no (unknown) (unknown) I confirm the (units (u nknown) date) patient?s Advance unknown) Care Plan is present, Code status is documented, (unknown) (no (unknown) (unknown) I have utilized (units (unknown) date) all available unknown) resources to reconcile the patient's home (unknown) (no (unknown) (unknown) I spent a total (units (unknown) date) of [] minutes of unknown) critical care time on this patient's care (unknown) (no (unknown) (unknown) In the ED workup (units (unknown) date) was done, vitals unknown) notable for heart rate in the 120s, (unknown) (no (unknown) (unknown) [facility] (units (unknown) date) [address] unknown) [place] [address] (unknown) (no (unknown) (unknown) Laboratory (units (unk nown) date) Results - last 24 unknown) hr (unknown) (no (unknown) (unknown) Labs (units (unkno wn) date) unknown) (unknown) (no (unknown) (unknown) Labs: (units (unkno wn) date) unknown) (unknown) (no (unknown) (unknown) Lipase 648 H (units (u nknown) date) unknown) (unknown) (no (unknown) (unknown) Lipase (units (unkno wn) date) unknown) (unknown) (no (unknown) (unknown) Lymph # (Auto) (units (unknown) date) 2200 unknown) (unknown) (no (unknown) (unknown) Lymph # (Auto) (units (unknown) date) unknown) (unknown) (no (unknown) (unknown) Lymph % (Auto) (units (unknown) date) 34.0 unknown) (unknown) (no (unknown) (unknown) Lymph % (Auto) (units (unknown) date) unknown) (unknown) (no (unknown) (unknown) MCH 30.7 (units (unkno wn) date) unknown) (unknown) (no (unknown) (unknown) MCH (units (unkno wn) date) unknown) (unknown) (no (unknown) (unknown) MCHC 35.2 (units (unkn own) date) unknown) (unknown) (no (unknown) (unknown) MCHC (units (unkno wn) date) unknown) (unknown) (no (unknown) (unknown) MCV 87.2 (units (unkno wn) date) unknown) (unknown) (no (unknown) (unknown) MCV (units (unkno wn) date) unknown) (unknown) (no (unknown) (unknown) MIPS - Admit (units (u nknown) date) unknown) (unknown) (no (unknown) (unknown) Magnesium 1.8 (units ( unknown) date) unknown) (unknown) (no (unknown) (unknown) Magnesium (units (unkn own) date) unknown) (unknown) (no (unknown) (unknown) Medical History (units (unknown) date) (Reviewed unknown) 03/28/22 @ 21:52 by Umesh Akins MD) (unknown) (no (unknown) (unknown) Medication (units (unk nown) date) Instructions unknown) Recorded Confirmed Type (unknown) (no (unknown) (unknown) Meds (units (unkno wn) date) unknown) (unknown) (no (unknown) (unknown) [place] # (Auto) (units ( unknown) date) 400 unknown) (unknown) (no (unknown) (unknown) [place] # (Auto) (units ( unknown) date) unknown) (unknown) (no (unknown) (unknown) [place] % (Auto) (units ( unknown) date) 6.3 unknown) (unknown) (no (unknown) (unknown) [place] % (Auto) (units ( unknown) date) unknown) (unknown) (no (unknown) (unknown) Mother Medical (units (unknown) date) history unknown unknown) (unknown) (no (unknown) (unknown) Mr. Chan is a (units (unknown) date) 66M with PMH CAD unknown) s/p AK, DM, active tobacco smoker who presents (unknown) (no (unknown) (unknown) Mr. Chan is a (units (unknown) date) 66M with PMH CAD, unknown) DM who presents with chest pain, back pain, (unknown) (no (unknown) (unknown) NECK: trachea (units ( unknown) date) midline, no JVD unknown) (unknown) (no (unknown) (unknown) NEURO: awake, (units ( unknown) date) alert oriented, unknown) lower extremity numbness (unknown) (no (unknown) (unknown) Narrative (units (unkn own) date) unknown) (unknown) (no (unknown) (unknown) Narrative: (units (unk nown) date) unknown) (unknown) (no (unknown) (unknown) Neut # (Auto) (units ( unknown) date) 3700 unknown) (unknown) (no (unknown) (unknown) Neut # (Auto) (units ( unknown) date) unknown) (unknown) (no (unknown) (unknown) Neut % (Auto) (units ( unknown) date) 56.9 unknown) (unknown) (no (unknown) (unknown) Neut % (Auto) (units ( unknown) date) unknown) (unknown) (no (unknown) (unknown) No Known Drug (units ( unknown) date) Allergies Allergy unknown) Verified 10/31/20 23:10 (unknown) (no (unknown) (unknown) Objective (units (unkn own) date) unknown) (unknown) (no (unknown) (unknown) Oxygen Delivery (units (unknown) date) Method Room Air unknown) (unknown) (no (unknown) (unknown) Oxygen Delivery (units (unknown) date) Method unknown) (unknown) (no (unknown) (unknown) PULM: clear (units (un known) date) bilaterally, no unknown) wheezes, rhonchi, rales (unknown) (no (unknown) (unknown) Patient History (units (unknown) date) unknown) (unknown) (no (unknown) (unknown) Patient: (units (unkno wn) date) Aquilino Chanvan MR#: unknown) [id number] (unknown) (no (unknown) (unknown) Plt Count 154 (units ( unknown) date) unknown) (unknown) (no (unknown) (unknown) Plt Count (units (unkn own) date) unknown) (unknown) (no (unknown) (unknown) Potassium 5.4 H (units (unknown) date) unknown) (unknown) (no (unknown) (unknown) Potassium (units (unkn own) date) unknown) (unknown) (no (unknown) (unknown) Prior Living (units (u nknown) date) Arrangements unknown) Apartment/Condo (unknown) (no (unknown) (unknown) Provider: (units (unkn own) date) Umesh Akins MD unknown) (unknown) (no (unknown) (unknown) Proxy: [place] (units (un known) date) [place], unknown) family (unknown) (no (unknown) (unknown) Pulse Oximetry (units (unknown) date) 95 95 unknown) (unknown) (no (unknown) (unknown) Pulse Oximetry (units (unknown) date) 95 96 unknown) (unknown) (no (unknown) (unknown) Pulse Oximetry (units (unknown) date) 95 unknown) (unknown) (no (unknown) (unknown) Pulse Rate 102 H (units (unknown) date) 97 H unknown) (unknown) (no (unknown) (unknown) Pulse Rate 104 H (units (unknown) date) unknown) (unknown) (no (unknown) (unknown) Pulse Rate 120 H (units (unknown) date) 107 H unknown) (unknown) (no (unknown) (unknown) Quality (units (unkno wn) date) unknown) (unknown) (no (unknown) (unknown) RBC 5.46 (units (unkno wn) date) unknown) (unknown) (no (unknown) (unknown) RBC (units (unkno wn) date) unknown) (unknown) (no (unknown) (unknown) RDW 14.1 (units (unkno wn) date) unknown) (unknown) (no (unknown) (unknown) RDW (units (unkno wn) date) unknown) (unknown) (no (unknown) (unknown) Respiratory Rate (units (unknown) date) 11 L unknown) (unknown) (no (unknown) (unknown) Respiratory Rate (units (unknown) date) 26 H unknown) (unknown) (no (unknown) (unknown) Respiratory Rate (units (unknown) date) unknown) (unknown) (no (unknown) (unknown) Result Diagrams: (units (unknown) date) unknown) (unknown) (no (unknown) (unknown) Review of (units (unkn own) date) Systems unknown) (unknown) (no (unknown) (unknown) SARS-CoV-2 (PCR) (units (unknown) date) Negative unknown) (unknown) (no (unknown) (unknown) SARS-CoV-2 (PCR) (units (unknown) date) unknown) (unknown) (no (unknown) (unknown) SKIN: petechia (units (unknown) date) in lower unknown) extremities (unknown) (no (unknown) (unknown) Safety + (units (unkno wn) date) Behavioral: unknown) (unknown) (no (unknown) (unknown) Signed (units (unkno wn) date) By:<Electronicall unknown) y signed by Umesh Akins MD> (unknown) (no (unknown) (unknown) Smoking Status (units (unknown) date) Current every day unknown) smoker (unknown) (no (unknown) (unknown) Social History: (units (unknown) date) unknown) (unknown) (no (unknown) (unknown) Sodium 138 (units (unk nown) date) unknown) (unknown) (no (unknown) (unknown) Sodium (units (unkno wn) date) unknown) (unknown) (no (unknown) (unknown) Substance Use (units ( unknown) date) Type does not use unknown) (unknown) (no (unknown) (unknown) Surgical History (units (unknown) date) (Reviewed unknown) 03/28/22 @ 21:52 by Umesh Akins MD) (unknown) (no (unknown) (unknown) Surrogate (units (unkn own) date) decision maker is unknown) in patient?s record [If Yes, STOP here]: Yes (unknown) (no (unknown) (unknown) Time Patient (units (u nknown) date) Seen: 20:00 unknown) (unknown) (no (unknown) (unknown) Time Spent With (units (unknown) date) Patient unknown) (unknown) (no (unknown) (unknown) Tobacco + (units (unkn own) date) Substance use: unknown) (unknown) (no (unknown) (unknown) Tobacco type (units (u nknown) date) cigarettes unknown) (unknown) (no (unknown) (unknown) Total Bilirubin (units (unknown) date) 1.1 unknown) (unknown) (no (unknown) (unknown) Total Bilirubin (units (unknown) date) unknown) (unknown) (no (unknown) (unknown) Total Creatine (units (unknown) date) Kinase 38 L unknown) (unknown) (no (unknown) (unknown) Total Creatine (units (unknown) date) Kinase unknown) (unknown) (no (unknown) (unknown) Total Protein (units ( unknown) date) 7.6 unknown) (unknown) (no (unknown) (unknown) Total Protein (units ( unknown) date) unknown) (unknown) (no (unknown) (unknown) Troponin I < (units (u nknown) date) 0.012 unknown) (unknown) (no (unknown) (unknown) Troponin I (units (unk nown) date) unknown) (unknown) (no (unknown) (unknown) Ur Culture (units (unk nown) date) Indicated? Cult unknown) not indicated (unknown) (no (unknown) (unknown) Ur Culture (units (unk nown) date) Indicated? unknown) (unknown) (no (unknown) (unknown) Ur Leukocyte (units (u nknown) date) Esterase Negative unknown) (unknown) (no (unknown) (unknown) Ur Leukocyte (units (u nknown) date) Esterase unknown) (unknown) (no (unknown) (unknown) Ur Specific (units (un known) date) [place] <=1.005 unknown) (unknown) (no (unknown) (unknown) Ur Specific (units (un known) date) [place] unknown) (unknown) (no (unknown) (unknown) Urine Appearance (units (unknown) date) Clear unknown) (unknown) (no (unknown) (unknown) Urine Appearance (units (unknown) date) unknown) (unknown) (no (unknown) (unknown) Urine Bacteria (units (unknown) date) None seen unknown) (unknown) (no (unknown) (unknown) Urine Bacteria (units (unknown) date) unknown) (unknown) (no (unknown) (unknown) Urine Bilirubin (units (unknown) date) Negative unknown) (unknown) (no (unknown) (unknown) Urine Bilirubin (units (unknown) date) unknown) (unknown) (no (unknown) (unknown) Urine Color (units (un known) date) Yellow unknown) (unknown) (no (unknown) (unknown) Urine Color (units (un known) date) unknown) (unknown) (no (unknown) (unknown) Urine Glucose (units ( unknown) date) (UA) 3+ H unknown) (unknown) (no (unknown) (unknown) Urine Glucose (units ( unknown) date) (UA) unknown) (unknown) (no (unknown) (unknown) Urine Ketones (units ( unknown) date) Negative unknown) (unknown) (no (unknown) (unknown) Urine Ketones (units ( unknown) date) unknown) (unknown) (no (unknown) (unknown) Urine Nitrate (units ( unknown) date) Negative unknown) (unknown) (no (unknown) (unknown) Urine Nitrate (units ( unknown) date) unknown) (unknown) (no (unknown) (unknown) Urine Occult (units (u nknown) date) Blood Negative unknown) (unknown) (no (unknown) (unknown) Urine Occult (units (u nknown) date) Blood unknown) (unknown) (no (unknown) (unknown) Urine Protein (units ( unknown) date) Negative unknown) (unknown) (no (unknown) (unknown) Urine Protein (units ( unknown) date) unknown) (unknown) (no (unknown) (unknown) Urine RBC (units (unkn own) date) 0-1/hpf unknown) (unknown) (no (unknown) (unknown) Urine RBC (units (unkn own) date) unknown) (unknown) (no (unknown) (unknown) Urine (units (unkno wn) date) Urobilinogen 0.2 unknown) (unknown) (no (unknown) (unknown) Urine (units (unkno wn) date) Urobilinogen unknown) (unknown) (no (unknown) (unknown) Urine WBC None (units (unknown) date) seen unknown) (unknown) (no (unknown) (unknown) Urine WBC (units (unkn own) date) unknown) (unknown) (no (unknown) (unknown) Urine pH 5.0 (units (u nknown) date) unknown) (unknown) (no (unknown) (unknown) Urine pH (units (unkno wn) date) unknown) (unknown) (no (unknown) (unknown) Vital Signs (units (un known) date) unknown) (unknown) (no (unknown) (unknown) WBC 6.5 (units (unkno wn) date) unknown) (unknown) (no (unknown) (unknown) WBC (units (unkno wn) date) unknown) (unknown) (no (unknown) (unknown) [Embedded Image (units (unknown) date) Not Available] unknown) (unknown) (no (unknown) (unknown) abdominal pain. (units (unknown) date) unknown) (unknown) (no (unknown) (unknown) alcohol intake (units (unknown) date) former unknown) (unknown) (no (unknown) (unknown) also is (units (unkno wn) date) complaining of unknown) generalized abdominal pain with no nausea, vomiting, or (unknown) (no (unknown) (unknown) associated (units (unk nown) date) shortness of unknown) breath. No cough/fevers. He also complains of chronic (unknown) (no (unknown) (unknown) atorvastatin 40 (units (unknown) date) mg tablet unknown) (Lipitor) 40 mg PO DAILY 10/31/20 11/01/20 History (unknown) (no (unknown) (unknown) bowel sounds (units (u nknown) date) unknown) (unknown) (no (unknown) (unknown) capsule (units (unkno wn) date) unknown) (unknown) (no (unknown) (unknown) diarrhea. (units (unkn own) date) unknown) (unknown) (no (unknown) (unknown) extremity (units (unkn own) date) numbness, and may unknown) have had an episode of incontinence in the past. He (unknown) (no (unknown) (unknown) fenofibrate (units (un known) date) micronized 134 mg unknown) 134 mg PO DAILY 11/01/20 11/01/20 History (unknown) (no (unknown) (unknown) has had chronic (units (unknown) date) back pain after unknown) an injury decades ago and has significant (unknown) (no (unknown) (unknown) heartburn. It is (units (unknown) date) pressure like unknown) pain in a band across his chest, with some (unknown) (no (unknown) (unknown) household (units (unkn own) date) members unknown) significant other (unknown) (no (unknown) (unknown) incontinence (units (u nknown) date) unknown) (unknown) (no (unknown) (unknown) low back pain, (units (unknown) date) which is now unknown) radiating to his legs. He has had chronic lower (unknown) (no (unknown) (unknown) medications and (units (unknown) date) admitted for unknown) further treatment. (unknown) (no (unknown) (unknown) medications (units (un known) date) currently and unknown) does not follow up with any physician or PCP. He also (unknown) (no (unknown) (unknown) medications (units (un known) date) unknown) (unknown) (no (unknown) (unknown) metformin 500 mg (units (unknown) date) tablet 500 mg PO unknown) BID 10/31/20 11/01/20 History (unknown) (no (unknown) (unknown) metoprolol (units (unk nown) date) succinate 25 mg unknown) 25 mg PO DAILY 10/31/20 11/01/20 History (unknown) (no (unknown) (unknown) mobility issues. (units (unknown) date) He comes in to unknown) the hospital today with complaints of chest (unknown) (no (unknown) (unknown) naproxen sodium (units (unknown) date) 220 mg capsule unknown) 220 mg PO BID 03/28/22 03/28/22 History (unknown) (no (unknown) (unknown) oxycodone 5 mg (units (unknown) date) tablet 5 mg PO unknown) Q8HR PRN Pain. 10/31/20 11/01/20 History (unknown) (no (unknown) (unknown) pain. This has (units (unknown) date) been going on a unknown) couple days. He thought it was possibly (unknown) (no (unknown) (unknown) pantoprazole 40 (units (unknown) date) mg PO BID ##0 unknown) 11/01/20 11/01/20 Rx (unknown) (no (unknown) (unknown) respiratory rate (units (unknown) date) in the 20s. Labs unknown) notable for WBC 6.5, hgb 16.8, plts 155. (unknown) (no (unknown) (unknown) tablet,extended (units (unknown) date) release 24 hr unknown) (unknown) (no (unknown) (unknown) today; this time (units (unknown) date) is exclusive of unknown) procedural time. (unknown) (no (unknown) (unknown) with multiple (units ( unknown) date) complaints. He unknown) has a history of CAD s/p AK in 2013. He takes no (unknown) (no (unknown) (unknown) with no acute (units ( unknown) date) process. EKG unknown) shows no acute ischemia. He was ordered for pain Result panel 570 (unknown) (no (unknown) (unknown) (no value) (units (unk nown) date) unknown) (unknown) (no (unknown) (unknown) ([place]) (units (unkno wn) date) unknown) (unknown) (no (unknown) (unknown) 03/28/22 (units (unkno wn) date) 03/28/22 03/28/22 unknown) Range/Units (unknown) (no (unknown) (unknown) 03/28/22 18:47 (units (unknown) date) unknown) (unknown) (no (unknown) (unknown) 03/28/22 19:00 (units (unknown) date) unknown) (unknown) (no (unknown) (unknown) 03/28/22 20:16 (units (unknown) date) unknown) (unknown) (no (unknown) (unknown) 03/28/22 (units (unkno wn) date) unknown) (unknown) (no (unknown) (unknown) [address] [place] [address] (units (unknown) date) unknown) (unknown) (no (unknown) (unknown) 17:00 19:00 (units (un known) date) 19:00 unknown) (unknown) (no (unknown) (unknown) 18:51 03/28/22 (units (unknown) date) unknown) (unknown) (no (unknown) (unknown) 18:54 03/28/22 (units (unknown) date) unknown) (unknown) (no (unknown) (unknown) 18:54 (units (unkno wn) date) unknown) (unknown) (no (unknown) (unknown) 19:00 03/28/22 (units (unknown) date) unknown) (unknown) (no (unknown) (unknown) 19:00 19:00 (units (un known) date) 20:16 unknown) (unknown) (no (unknown) (unknown) 19:30 03/28/22 (units (unknown) date) unknown) (unknown) (no (unknown) (unknown) 19:30 (units (unkno wn) date) unknown) (unknown) (no (unknown) (unknown) 19:50 03/28/22 (units (unknown) date) unknown) (unknown) (no (unknown) (unknown) 19:50 (units (unkno wn) date) unknown) (unknown) (no (unknown) (unknown) 2847 (units (unkno wn) date) unknown) (unknown) (no (unknown) (unknown) ? (units (unkno wn) date) unknown) (unknown) (no (unknown) (unknown) ALT (<50) IU/L (units (unknown) date) unknown) (unknown) (no (unknown) (unknown) ALT 90 H (<50) (units (unknown) date) IU/L unknown) (unknown) (no (unknown) (unknown) AST (17-59) IU/L (units (unknown) date) unknown) (unknown) (no (unknown) (unknown) AST 91 H (17-59) (units (unknown) date) IU/L unknown) (unknown) (no (unknown) (unknown) Accession (units (unkn own) date) Number: unknown) [id number] ?? (unknown) (no (unknown) (unknown) Acct:[id number] (units (unknown) date) unknown) (unknown) (no (unknown) (unknown) Acetaminophen (units ( unknown) date) (Acetaminophen unknown) 325 Mg Tablet) 650 mg PO Q6HR PRN (unknown) (no (unknown) (unknown) Admit Date/Time: (units (unknown) date) 03/28/22 20:16 unknown) (unknown) (no (unknown) (unknown) Admit Provider: (units (unknown) date) Umesh Akins unknown) (unknown) (no (unknown) (unknown) Age/Sex: 66 / M (units (unknown) date) unknown) (unknown) (no (unknown) (unknown) Albumin (units (unkno wn) date) (3.5-5.0) g/dL unknown) (unknown) (no (unknown) (unknown) Albumin 4.3 (units (un known) date) (3.5-5.0) g/dL unknown) (unknown) (no (unknown) (unknown) Albumin/Globulin (units (unknown) date) Ratio (1.0-2.8) unknown) (unknown) (no (unknown) (unknown) Albumin/Globulin (units (unknown) date) Ratio 1.3 unknown) (1.0-2.8) (unknown) (no (unknown) (unknown) Alkaline (units (unkno wn) date) Phosphatase unknown) (38-126) U/L (unknown) (no (unknown) (unknown) Alkaline (units (unkno wn) date) Phosphatase 129 H unknown) (38-126) U/L (unknown) (no (unknown) (unknown) Allergies (units (unkn own) date) unknown) (unknown) (no (unknown) (unknown) Allergy/AdvReac (units (unknown) date) Type Severity unknown) Reaction Status Date / Time (unknown) (no (unknown) (unknown) Amorphous (units (unkn own) date) Sediment 1 unknown) (unknown) (no (unknown) (unknown) Amorphous (units (unkn own) date) Sediment unknown) (unknown) (no (unknown) (unknown) [place], [place] (units ( unknown) date) [id number] unknown) (unknown) (no (unknown) (unknown) Approved by: (units (u nknown) date) Michele Garduno M.D. unknown) on 03/28/2022 at 19:24?? (unknown) (no (unknown) (unknown) Aspirin (Aspirin (units (unknown) date) Ec 81 Mg Tablet) unknown) 81 mg PO DAILY HÉCTOR (unknown) (no (unknown) (unknown) Aspirin Child 81 (units (unknown) date) mg PO DAILY unknown) 11/01/20 11/01/20 (unknown) (no (unknown) (unknown) Atorvastatin (units (u nknown) date) Calcium unknown) (Atorvastatin 20 Mg Tablet) 40 mg PO BEDTIME HÉCTOR (unknown) (no (unknown) (unknown) Atypical chest (units (unknown) date) pain, unknown) Hypertension, Low back pain, Acute urinary retention, (unknown) (no (unknown) (unknown) BUN (9-20) mg/dL (units (unknown) date) unknown) (unknown) (no (unknown) (unknown) BUN 5 L (9-20) (units (unknown) date) mg/dL unknown) (unknown) (no (unknown) (unknown) BUN/Creatinine (units (unknown) date) Ratio (6-22) unknown) (unknown) (no (unknown) (unknown) BUN/Creatinine (units (unknown) date) Ratio 7.0 (6-22) unknown) (unknown) (no (unknown) (unknown) Baso # (Auto) (units ( unknown) date) (0-100) /uL unknown) (unknown) (no (unknown) (unknown) Baso # (Auto) 0 (units (unknown) date) (0-100) /uL unknown) (unknown) (no (unknown) (unknown) Baso % (Auto) (units ( unknown) date) (0-2) % unknown) (unknown) (no (unknown) (unknown) Baso % (Auto) (units ( unknown) date) 0.8 (0-2) % unknown) (unknown) (no (unknown) (unknown) Blood Pressure (units (unknown) date) 134/75 111/69 unknown) (unknown) (no (unknown) (unknown) Blood Pressure (units (unknown) date) 138/84 unknown) (unknown) (no (unknown) (unknown) Blood Pressure (units (unknown) date) 157/83 H unknown) (unknown) (no (unknown) (unknown) Bones and chest (units (unknown) date) wall:? No unknown) suspicious bony lesions.? Prior left clavicle (unknown) (no (unknown) (unknown) CK-MB (CK-2) Rel (units (unknown) date) Index TNP unknown) (unknown) (no (unknown) (unknown) CK-MB (CK-2) Rel (units (unknown) date) Index unknown) (unknown) (no (unknown) (unknown) CK-MB (CK-2) TNP (units (unknown) date) unknown) (unknown) (no (unknown) (unknown) CK-MB (CK-2) (units (u nknown) date) unknown) (unknown) (no (unknown) (unknown) COMPARISON:? (units (u nknown) date) [facility], unknown) CR, XR CHEST 1V, 10/31/2020, 23:19. (unknown) (no (unknown) (unknown) COVID19 -Nasal (units (unknown) date) RAPID/Pre-Proc unknown) Stat (unknown) (no (unknown) (unknown) Calcium (units (unkno wn) date) (8.4-10.2) mg/dL unknown) (unknown) (no (unknown) (unknown) Calcium 8.3 L (units ( unknown) date) (8.4-10.2) mg/dL unknown) (unknown) (no (unknown) (unknown) Carbon Dioxide (units (unknown) date) (22-32) mmol/L unknown) (unknown) (no (unknown) (unknown) Carbon Dioxide (units (unknown) date) 17 L (22-32) unknown) mmol/L (unknown) (no (unknown) (unknown) Chest x-ray: (units (u nknown) date) unknown) (unknown) (no (unknown) (unknown) Chief complaint: (units (unknown) date) Chest Pain unknown) (unknown) (no (unknown) (unknown) Chloride (units (unkno wn) date) (98-107) mmol/L unknown) (unknown) (no (unknown) (unknown) Chloride 105 (units (u nknown) date) (98-107) mmol/L unknown) (unknown) (no (unknown) (unknown) Clinical (units (unkno wn) date) Impression: unknown) (unknown) (no (unknown) (unknown) Complete Blood (units (unknown) date) Count AUTO DIFF unknown) Stat (unknown) (no (unknown) (unknown) Comprehensive (units ( unknown) date) Metabolic Panel unknown) Stat (unknown) (no (unknown) (unknown) Coronary artery (units (unknown) date) disease unknown) (unknown) (no (unknown) (unknown) Course (units (unkno wn) date) unknown) (unknown) (no (unknown) (unknown) Creatinine (units (unk nown) date) (0.66-1.25) mg/dL unknown) (unknown) (no (unknown) (unknown) Creatinine 0.71 (units (unknown) date) (0.66-1.25) mg/dL unknown) (unknown) (no (unknown) (unknown) D-Dimer (<500) (units (unknown) date) ng/ml unknown) (unknown) (no (unknown) (unknown) D-Dimer 1528 H (units (unknown) date) (<500) ng/ml unknown) (unknown) (no (unknown) (unknown) : 1955 (units (unknown) date) Acct:[id number] unknown) (unknown) (no (unknown) (unknown) : 1955 (units (unknown) date) unknown) (unknown) (no (unknown) (unknown) Date of Service: (units (unknown) date) 03/28/22 unknown) (unknown) (no (unknown) (unknown) Departure (units (unkn own) date) unknown) (unknown) (no (unknown) (unknown) Dextrose (units (unkno wn) date) (Dextrose 50 % In unknown) Water 25 Gm/50 Ml Syringe) 25 gm IV PRN PRN (unknown) (no (unknown) (unknown) Diabetes type 2, (units (unknown) date) uncontrolled unknown) (unknown) (no (unknown) (unknown) Dictated by: (units (u nknown) date) Michele Garduno M.D. unknown) on 03/28/2022 at 19:23 ? ? (unknown) (no (unknown) (unknown) Discharge Plan (units (unknown) date) unknown) (unknown) (no (unknown) (unknown) Discontinued (units (u nknown) date) Medications unknown) (unknown) (no (unknown) (unknown) Documented By: (units (unknown) date) AM Co-signed By: unknown) MS (unknown) (no (unknown) (unknown) Documented By: (units (unknown) date) AM unknown) (unknown) (no (unknown) (unknown) Documented By: (units (unknown) date) OBDULIO unknown) (unknown) (no (unknown) (unknown) Documented By: (units (unknown) date) KF unknown) (unknown) (no (unknown) (unknown) ED Orders (units (unkn own) date) unknown) (unknown) (no (unknown) (unknown) EKG-12 Lead Stat (units (unknown) date) unknown) (unknown) (no (unknown) (unknown) ER Physician: (units ( unknown) date) Fausto Padgett unknown) D.O. (unknown) (no (unknown) (unknown) Elevated blood (units (unknown) date) alcohol level unknown) (unknown) (no (unknown) (unknown) Emergency Report (units (unknown) date) unknown) (unknown) (no (unknown) (unknown) Enoxaparin (units (unk nown) date) Sodium unknown) (Enoxaparin 40 Mg/0.4 Ml Syringe) 40 mg SUBCUT DAILY HÉCTOR (unknown) (no (unknown) (unknown) Eos # (Auto) (units (u nknown) date) (0-450) /uL unknown) (unknown) (no (unknown) (unknown) Eos # (Auto) 100 (units (unknown) date) (0-450) /uL unknown) (unknown) (no (unknown) (unknown) Eos % (Auto) (units (u nknown) date) (2-4) % unknown) (unknown) (no (unknown) (unknown) Eos % (Auto) 2.0 (units (unknown) date) (2-4) % unknown) (unknown) (no (unknown) (unknown) Estimated GFR > (units (unknown) date) 60 (>60) mL/min unknown) (unknown) (no (unknown) (unknown) Estimated GFR (units ( unknown) date) (>60) mL/min unknown) (unknown) (no (unknown) (unknown) Ethyl Alcohol ( (units (unknown) date) - 10) mg/dL unknown) (unknown) (no (unknown) (unknown) Ethyl Alcohol (units ( unknown) date) 225 H ( - 10) unknown) mg/dL (unknown) (no (unknown) (unknown) Exam (units (unkno wn) date) unknown) (unknown) (no (unknown) (unknown) FINDINGS:? (units (unk nown) date) unknown) (unknown) (no (unknown) (unknown) Family History (units (unknown) date) (Reviewed unknown) 03/28/22 @ 21:52 by Umesh Akins MD) (unknown) (no (unknown) (unknown) Father (units (unknown) date) Lung cancer unknown) (unknown) (no (unknown) (unknown) General (units (unkno wn) date) unknown) (unknown) (no (unknown) (unknown) Globulin (units (unkno wn) date) (1.7-4.1) g/dL unknown) (unknown) (no (unknown) (unknown) Globulin 3.3 (units (u nknown) date) (1.7-4.1) g/dL unknown) (unknown) (no (unknown) (unknown) Glucose (80-110) (units (unknown) date) mg/dL unknown) (unknown) (no (unknown) (unknown) Glucose 390 H (units ( unknown) date) (80-110) mg/dL unknown) (unknown) (no (unknown) (unknown) H/O heart artery (units (unknown) date) stent unknown) (unknown) (no (unknown) (unknown) HPI - General (units ( unknown) date) Adult unknown) (unknown) (no (unknown) (unknown) Hct (41-53) % (units ( unknown) date) unknown) (unknown) (no (unknown) (unknown) Hct 47.6 (41-53) (units (unknown) date) % unknown) (unknown) (no (unknown) (unknown) Hgb (13.5-17.5) (units (unknown) date) g/dL unknown) (unknown) (no (unknown) (unknown) Hgb 16.8 (units (unkno wn) date) (13.5-17.5) g/dL unknown) (unknown) (no (unknown) (unknown) Home Medications (units (unknown) date) unknown) (unknown) (no (unknown) (unknown) Hydromorphone (units ( unknown) date) HCl unknown) (Hydromorphone 1 Mg Inj) 1 mg IV NOW ONE (unknown) (no (unknown) (unknown) Hyperglycemia (units ( unknown) date) unknown) (unknown) (no (unknown) (unknown) IMPRESSION:? (units (u nknown) date) unknown) (unknown) (no (unknown) (unknown) INDICATIONS:? (units ( unknown) date) chest pain unknown) (unknown) (no (unknown) (unknown) Imaging Data (units (u nknown) date) unknown) (unknown) (no (unknown) (unknown) Initial Vital (units ( unknown) date) Signs unknown) (unknown) (no (unknown) (unknown) Initial Vital (units ( unknown) date) Signs: unknown) (unknown) (no (unknown) (unknown) Insulin Human (units ( unknown) date) Lispro (Insulin unknown) Lispro 100 Unit/Ml 3ml Vial) 0 unit SUBCUT ACHS (unknown) (no (unknown) (unknown) [facility] (units (unknown) date) [address] unknown) [place] [address] (unknown) (no (unknown) (unknown) [facility] (units (unknown) date) unknown) (unknown) (no (unknown) (unknown) Lab Data (units (unkno wn) date) unknown) (unknown) (no (unknown) (unknown) Lab Results (units (un known) date) unknown) (unknown) (no (unknown) (unknown) Labs: (units (unkno wn) date) unknown) (unknown) (no (unknown) (unknown) Last Admin: (units (un known) date) 03/28/22 19:29 unknown) Dose: 6 ml (unknown) (no (unknown) (unknown) Last Admin: (units (un known) date) 03/28/22 19:32 unknown) Dose: 4 mg (unknown) (no (unknown) (unknown) Last Admin: (units (un known) date) 03/28/22 20:19 unknown) Dose: 1 mg (unknown) (no (unknown) (unknown) Last Admin: (units (un known) date) 03/28/22 23:50 unknown) Dose: 4 mg (unknown) (no (unknown) (unknown) Last Admin: (units (un known) date) 03/28/22 23:50 unknown) Dose: 50 mg (unknown) (no (unknown) (unknown) Last Admin: (units (un known) date) 03/28/22 23:51 unknown) Dose: 40 mg (unknown) (no (unknown) (unknown) Last Admin: (units (un known) date) 03/29/22 00:02 unknown) Dose: 3 unit (unknown) (no (unknown) (unknown) Lidocaine HCl (units ( unknown) date) (Lidocaine 2% unknown) (Glydo) 6 Ml Gel) 6 ml TOP NOW ONE (unknown) (no (unknown) (unknown) Lipase (23-300) (units (unknown) date) U/L unknown) (unknown) (no (unknown) (unknown) Lipase 648 H (units (u nknown) date) (23-300) U/L unknown) (unknown) (no (unknown) (unknown) Lipase Stat (units (un known) date) unknown) (unknown) (no (unknown) (unknown) Loc: ED (units (unkno wn) date) unknown) (unknown) (no (unknown) (unknown) Lungs and (units (unkn own) date) pleura:? Lungs unknown) are clear.? No pleural effusions or pneumothorax.? (unknown) (no (unknown) (unknown) Lymph # (Auto) (units (unknown) date) (7853-0860) /uL unknown) (unknown) (no (unknown) (unknown) Lymph # (Auto) (units (unknown) date) 2200 (6823-0298) unknown) /uL (unknown) (no (unknown) (unknown) Lymph % (Auto) (units (unknown) date) (25-40) % unknown) (unknown) (no (unknown) (unknown) Lymph % (Auto) (units (unknown) date) 34.0 (25-40) % unknown) (unknown) (no (unknown) (unknown) MCH (26-34) PG (units (unknown) date) unknown) (unknown) (no (unknown) (unknown) MCH 30.7 (26-34) (units (unknown) date) PG unknown) (unknown) (no (unknown) (unknown) MCHC (30-36) % (units (unknown) date) unknown) (unknown) (no (unknown) (unknown) MCHC 35.2 (units (unkn own) date) (30-36) % unknown) (unknown) (no (unknown) (unknown) MCV (80-100) fL (units (unknown) date) unknown) (unknown) (no (unknown) (unknown) MCV 87.2 (units (unkno wn) date) (80-100) fL unknown) (unknown) (no (unknown) (unknown) MR#: [id number] (units (unknown) date) unknown) (unknown) (no (unknown) (unknown) Magnesium (units (unkn own) date) (1.6-2.3) mg/dL unknown) (unknown) (no (unknown) (unknown) Magnesium 1.8 (units ( unknown) date) (1.6-2.3) mg/dL unknown) (unknown) (no (unknown) (unknown) Magnesium Stat (units (unknown) date) unknown) (unknown) (no (unknown) (unknown) Mediastinum:? (units ( unknown) date) Mediastinal unknown) contours appear normal.? Heart size is normal.? (unknown) (no (unknown) (unknown) Medical Decision (units (unknown) date) Making unknown) (unknown) (no (unknown) (unknown) Medical History (units (unknown) date) (Reviewed unknown) 03/28/22 @ 21:52 by Umesh Akins MD) (unknown) (no (unknown) (unknown) Medication (units (unk nown) date) Instructions unknown) Recorded Confirmed (unknown) (no (unknown) (unknown) Medication (units (unk nown) date) Instructions unknown) Recorded (unknown) (no (unknown) (unknown) [place] # (Auto) (units ( unknown) date) (0-900) /uL unknown) (unknown) (no (unknown) (unknown) [place] # (Auto) (units ( unknown) date) 400 (0-900) /uL unknown) (unknown) (no (unknown) (unknown) [place] % (Auto) (units ( unknown) date) (3-14) % unknown) (unknown) (no (unknown) (unknown) [place] % (Auto) (units ( unknown) date) 6.3 (3-14) % unknown) (unknown) (no (unknown) (unknown) Morphine Sulfate (units (unknown) date) (Morphine 4 Mg/Ml unknown) Inj) 4 mg IV NOW ONE (unknown) (no (unknown) (unknown) Mother Medical (units (unknown) date) history unknown unknown) (unknown) (no (unknown) (unknown) Neut # (Auto) (units ( unknown) date) (5002-8189) /uL unknown) (unknown) (no (unknown) (unknown) Neut # (Auto) (units ( unknown) date) 3700 (9394-5425) unknown) /uL (unknown) (no (unknown) (unknown) Neut % (Auto) (units ( unknown) date) (50-75) % unknown) (unknown) (no (unknown) (unknown) Neut % (Auto) (units ( unknown) date) 56.9 (50-75) % unknown) (unknown) (no (unknown) (unknown) No Known Drug (units ( unknown) date) Allergies Allergy unknown) Verified 10/31/20 23:10 (unknown) (no (unknown) (unknown) No acute osseous (units (unknown) date) abnormality. unknown) (unknown) (no (unknown) (unknown) Ondansetron HCl (units (unknown) date) (Ondansetron 4 unknown) Mg/2 Ml Inj) 4 mg IV Q8HR PRN (unknown) (no (unknown) (unknown) Ordered: (units (unkno wn) date) unknown) (unknown) (no (unknown) (unknown) Ordering (units (unkno wn) date) Provider: unknown) Fausto Padgett D.O. (unknown) (no (unknown) (unknown) Orders (units (unkno wn) date) unknown) (unknown) (no (unknown) (unknown) Overlying soft (units (unknown) date) tissues appear unknown) unremarkable.? (unknown) (no (unknown) (unknown) Oxygen Delivery (units (unknown) date) Method 03/28/22 unknown) 18:51 (unknown) (no (unknown) (unknown) Oxygen Delivery (units (unknown) date) Method Room Air unknown) (unknown) (no (unknown) (unknown) Oxygen Delivery (units (unknown) date) Method unknown) (unknown) (no (unknown) (unknown) PRN Reason: (units (un known) date) Fever/Mild Pain unknown) (1-3) (unknown) (no (unknown) (unknown) PRN Reason: (units (un known) date) Hypoglycemia unknown) (unknown) (no (unknown) (unknown) PRN Reason: (units (un known) date) Nausea And unknown) Vomiting (unknown) (no (unknown) (unknown) PRN Reason: (units (un known) date) Pain, Moderate unknown) (4-6) (unknown) (no (unknown) (unknown) PROCEDURE:? XR (units (unknown) date) CHEST 1V unknown) (unknown) (no (unknown) (unknown) Patient (units (unkno wn) date) Disposition: unknown) Admitted as Observation (unknown) (no (unknown) (unknown) Patient History (units (unknown) date) unknown) (unknown) (no (unknown) (unknown) Patient: (units (unkno wn) date) Frank Chan MR#: unknown) [id number] (unknown) (no (unknown) (unknown) Patient: (units (unkno wn) date) Frank Chan unknown) (unknown) (no (unknown) (unknown) Plt Count (units (unkn own) date) (150-400) X103/uL unknown) (unknown) (no (unknown) (unknown) Plt Count 154 (units ( unknown) date) (150-400) X103/uL unknown) (unknown) (no (unknown) (unknown) Potassium (units (unkn own) date) (3.4-5.1) mmol/L unknown) (unknown) (no (unknown) (unknown) Potassium 5.4 H (units (unknown) date) (3.4-5.1) mmol/L unknown) (unknown) (no (unknown) (unknown) Previous Rx's (units ( unknown) date) unknown) (unknown) (no (unknown) (unknown) Procedure: XR (units ( unknown) date) chest 1V unknown) (unknown) (no (unknown) (unknown) Pulse Oximetry (units (unknown) date) 95 03/28/22 18:51 unknown) (unknown) (no (unknown) (unknown) Pulse Oximetry (units (unknown) date) 95 95 unknown) (unknown) (no (unknown) (unknown) Pulse Oximetry (units (unknown) date) 95 96 unknown) (unknown) (no (unknown) (unknown) Pulse Oximetry (units (unknown) date) 95 unknown) (unknown) (no (unknown) (unknown) Pulse Rate 102 H (units (unknown) date) 97 H unknown) (unknown) (no (unknown) (unknown) Pulse Rate 104 H (units (unknown) date) unknown) (unknown) (no (unknown) (unknown) Pulse Rate 120 H (units (unknown) date) 03/28/22 18:51 unknown) (unknown) (no (unknown) (unknown) Pulse Rate 120 H (units (unknown) date) 107 H unknown) (unknown) (no (unknown) (unknown) RBC (4.5-5.9) (units ( unknown) date) X106/uL unknown) (unknown) (no (unknown) (unknown) RBC 5.46 (units (unkno wn) date) (4.5-5.9) X106/uL unknown) (unknown) (no (unknown) (unknown) RDW (11.6-14.8) (units (unknown) date) % unknown) (unknown) (no (unknown) (unknown) RDW 14.1 (units (unkno wn) date) (11.6-14.8) % unknown) (unknown) (no (unknown) (unknown) Radiologist's (units ( unknown) date) Impression: unknown) (unknown) (no (unknown) (unknown) Related Data (units (u nknown) date) unknown) (unknown) (no (unknown) (unknown) Respiratory Rate (units (unknown) date) 11 L unknown) (unknown) (no (unknown) (unknown) Respiratory Rate (units (unknown) date) 26 H 03/28/22 unknown) 18:51 (unknown) (no (unknown) (unknown) Respiratory Rate (units (unknown) date) 26 H unknown) (unknown) (no (unknown) (unknown) Respiratory Rate (units (unknown) date) unknown) (unknown) (no (unknown) (unknown) Result diagrams: (units (unknown) date) unknown) (unknown) (no (unknown) (unknown) SARS-CoV-2 (PCR) (units (unknown) date) (Negative) unknown) (unknown) (no (unknown) (unknown) SARS-CoV-2 (PCR) (units (unknown) date) Negative unknown) (Negative) (unknown) (no (unknown) (unknown) HÉCTOR; Protocol (units ( unknown) date) unknown) (unknown) (no (unknown) (unknown) Signed By: (units (unk nown) date) unknown) (unknown) (no (unknown) (unknown) Signed (units (unkno wn) date) unknown) (unknown) (no (unknown) (unknown) Smoking Status: (units (unknown) date) Current every day unknown) smoker (unknown) (no (unknown) (unknown) Social History (units (unknown) date) (Reviewed unknown) 11/01/20 @ 00:30 by Nico Roche MD) (unknown) (no (unknown) (unknown) Sodium (137-145) (units (unknown) date) mmol/L unknown) (unknown) (no (unknown) (unknown) Sodium 138 (units (unk nown) date) (137-145) mmol/L unknown) (unknown) (no (unknown) (unknown) Stated (units (unkno wn) date) complaint: unknown) Bilateral LE, pelvis and chest wall pain (unknown) (no (unknown) (unknown) Stop: 03/28/22 (units (unknown) date) 18:44 unknown) (unknown) (no (unknown) (unknown) Stop: 03/28/22 (units (unknown) date) 19:00 unknown) (unknown) (no (unknown) (unknown) Stop: 03/28/22 (units (unknown) date) 20:06 unknown) (unknown) (no (unknown) (unknown) Substance Use (units ( unknown) date) Type: does not unknown) use (unknown) (no (unknown) (unknown) Surgical History (units (unknown) date) (Reviewed unknown) 03/28/22 @ 21:52 by Umesh Akins MD) (unknown) (no (unknown) (unknown) Surgical changes (units (unknown) date) and devices:? unknown) None.? (unknown) (no (unknown) (unknown) TECHNIQUE:? One (units (unknown) date) view of the chest unknown) was acquired.? (unknown) (no (unknown) (unknown) Time Seen by (units (u nknown) date) Provider: unknown) 03/28/22 18:45 (unknown) (no (unknown) (unknown) Total Bilirubin (units (unknown) date) (0.2-1.3) mg/dL unknown) (unknown) (no (unknown) (unknown) Total Bilirubin (units (unknown) date) 1.1 (0.2-1.3) unknown) mg/dL (unknown) (no (unknown) (unknown) Total Creatine (units (unknown) date) Kinase (55-170) unknown) U/L (unknown) (no (unknown) (unknown) Total Creatine (units (unknown) date) Kinase 38 L unknown) (55-170) U/L (unknown) (no (unknown) (unknown) Total Protein (units ( unknown) date) (6.3-8.2) g/dL unknown) (unknown) (no (unknown) (unknown) Total Protein (units ( unknown) date) 7.6 (6.3-8.2) unknown) g/dL (unknown) (no (unknown) (unknown) Tramadol HCl (units (u nknown) date) (Tramadol 50 Mg unknown) Tablet) 50 mg PO Q4H PRN (unknown) (no (unknown) (unknown) Troponin + CK (units ( unknown) date) Cardiac Panel unknown) Stat (unknown) (no (unknown) (unknown) Troponin I < (units (u nknown) date) 0.012 unknown) (0.01-0.034) ng/mL (unknown) (no (unknown) (unknown) Troponin I (units (unk nown) date) (0.01-0.034) unknown) ng/mL (unknown) (no (unknown) (unknown) Ur Culture (units (unk nown) date) Indicated? Cult unknown) not indicated (unknown) (no (unknown) (unknown) Ur Culture (units (unk nown) date) Indicated? unknown) (unknown) (no (unknown) (unknown) Ur Leukocyte (units (u nknown) date) Esterase unknown) (NEGATIVE) (unknown) (no (unknown) (unknown) Ur Leukocyte (units (u nknown) date) Esterase Negative unknown) (NEGATIVE) (unknown) (no (unknown) (unknown) Ur Specific (units (un known) date) [place] <=1.005 unknown) (1.000-1.035) (unknown) (no (unknown) (unknown) Ur Specific (units (un known) date) [place] unknown) (1.000-1.035) (unknown) (no (unknown) (unknown) Urinalysis and (units (unknown) date) Microscopic Stat unknown) (unknown) (no (unknown) (unknown) Urine Appearance (units (unknown) date) Clear unknown) (unknown) (no (unknown) (unknown) Urine Appearance (units (unknown) date) unknown) (unknown) (no (unknown) (unknown) Urine Bacteria (units (unknown) date) (None) unknown) (unknown) (no (unknown) (unknown) Urine Bacteria (units (unknown) date) None seen (None) unknown) (unknown) (no (unknown) (unknown) Urine Bilirubin (units (unknown) date) (NEGATIVE) unknown) (unknown) (no (unknown) (unknown) Urine Bilirubin (units (unknown) date) Negative unknown) (NEGATIVE) (unknown) (no (unknown) (unknown) Urine Color (units (un known) date) Yellow unknown) (unknown) (no (unknown) (unknown) Urine Color (units (un known) date) unknown) (unknown) (no (unknown) (unknown) Urine Glucose (units ( unknown) date) (UA) (Negative) unknown) g/dL (unknown) (no (unknown) (unknown) Urine Glucose (units ( unknown) date) (UA) 3+ H unknown) (Negative) g/dL (unknown) (no (unknown) (unknown) Urine Ketones (units ( unknown) date) (NEGATIVE) unknown) (unknown) (no (unknown) (unknown) Urine Ketones (units ( unknown) date) Negative unknown) (NEGATIVE) (unknown) (no (unknown) (unknown) Urine Nitrate (units ( unknown) date) (Negative) unknown) (unknown) (no (unknown) (unknown) Urine Nitrate (units ( unknown) date) Negative unknown) (Negative) (unknown) (no (unknown) (unknown) Urine Occult (units (u nknown) date) Blood (Negative) unknown) (unknown) (no (unknown) (unknown) Urine Occult (units (u nknown) date) Blood Negative unknown) (Negative) (unknown) (no (unknown) (unknown) Urine Protein (units ( unknown) date) (Negative) unknown) (unknown) (no (unknown) (unknown) Urine Protein (units ( unknown) date) Negative unknown) (Negative) (unknown) (no (unknown) (unknown) Urine RBC (units (unkn own) date) (0-5/HPF) unknown) (unknown) (no (unknown) (unknown) Urine RBC (units (unkn own) date) 0-1/hpf (0-5/HPF) unknown) (unknown) (no (unknown) (unknown) Urine (units (unkno wn) date) Urobilinogen unknown) (0.2) E.U./dL (unknown) (no (unknown) (unknown) Urine (units (unkno wn) date) Urobilinogen 0.2 unknown) (0.2) E.U./dL (unknown) (no (unknown) (unknown) Urine WBC (units (unkn own) date) (0-5/HPF) unknown) (unknown) (no (unknown) (unknown) Urine WBC None (units (unknown) date) seen (0-5/HPF) unknown) (unknown) (no (unknown) (unknown) Urine pH (units (unkno wn) date) (4.5-8.0) unknown) (unknown) (no (unknown) (unknown) Urine pH 5.0 (units (u nknown) date) (4.5-8.0) unknown) (unknown) (no (unknown) (unknown) Vital Signs - 8 (units (unknown) date) hr unknown) (unknown) (no (unknown) (unknown) Vital Signs (units (un known) date) unknown) (unknown) (no (unknown) (unknown) Vital signs: (units (u nknown) date) unknown) (unknown) (no (unknown) (unknown) WBC (4.5-11.0) (units (unknown) date) X103/uL unknown) (unknown) (no (unknown) (unknown) WBC 6.5 (units (unkno wn) date) (4.5-11.0) unknown) X103/uL (unknown) (no (unknown) (unknown) XR chest 1V Stat (units (unknown) date) unknown) (unknown) (no (unknown) (unknown) XRay Report (units (un known) date) unknown) (unknown) (no (unknown) (unknown) [Embedded Image (units (unknown) date) Not Available] unknown) (unknown) (no (unknown) (unknown) alcohol intake: (units (unknown) date) former unknown) (unknown) (no (unknown) (unknown) atorvastatin 40 (units (unknown) date) mg tablet unknown) (Lipitor) 40 mg PO DAILY 10/31/20 11/01/20 (unknown) (no (unknown) (unknown) capsule (units (unkno wn) date) unknown) (unknown) (no (unknown) (unknown) fenofibrate (units (un known) date) micronized 134 mg unknown) 134 mg PO DAILY 11/01/20 11/01/20 (unknown) (no (unknown) (unknown) fracture.? (units (unk nown) date) unknown) (unknown) (no (unknown) (unknown) household (units (unkn own) date) members: unknown) significant other (unknown) (no (unknown) (unknown) metformin 500 mg (units (unknown) date) tablet 500 mg PO unknown) BID 10/31/20 11/01/20 (unknown) (no (unknown) (unknown) metoprolol (units (unk nown) date) succinate 25 mg unknown) 25 mg PO DAILY 10/31/20 11/01/20 (unknown) (no (unknown) (unknown) naproxen sodium (units (unknown) date) 220 mg capsule unknown) 220 mg PO BID 03/28/22 03/28/22 (unknown) (no (unknown) (unknown) oxycodone 5 mg (units (unknown) date) tablet 5 mg PO unknown) Q8HR PRN Pain. 10/31/20 11/01/20 (unknown) (no (unknown) (unknown) pantoprazole 40 (units (unknown) date) mg PO BID ##0 unknown) 11/01/20 (unknown) (no (unknown) (unknown) tablet,extended (units (unknown) date) release 24 hr unknown) Result panel [id number] (unknown) (no (unknown) (unknown) (no value) (units (unk nown) date) unknown) (unknown) (no (unknown) (unknown) <Electronically (units (unknown) date) signed by Fausto Padgett D.O.> (unknown) (no (unknown) (unknown) (Aleve) (units (unkno wn) date) unknown) (unknown) (no (unknown) (unknown) 03/28/22 (units (unkno wn) date) 03/28/22 03/28/22 unknown) Range/Units (unknown) (no (unknown) (unknown) 03/28/22 18:47 (units (unknown) date) unknown) (unknown) (no (unknown) (unknown) 03/28/22 19:00 (units (unknown) date) unknown) (unknown) (no (unknown) (unknown) 03/28/22 20:16 (units (unknown) date) unknown) (unknown) (no (unknown) (unknown) 03/28/22 (units (unkno wn) date) unknown) (unknown) (no (unknown) (unknown) 03/29/22 0144 (units ( unknown) date) unknown) (unknown) (no (unknown) (unknown) [address] [place] [address] (units (unknown) date) unknown) (unknown) (no (unknown) (unknown) 17:00 19:00 (units (un known) date) 19:00 unknown) (unknown) (no (unknown) (unknown) 18:51 03/28/22 (units (unknown) date) unknown) (unknown) (no (unknown) (unknown) 18:54 03/28/22 (units (unknown) date) unknown) (unknown) (no (unknown) (unknown) 18:54 (units (unkno wn) date) unknown) (unknown) (no (unknown) (unknown) 19:00 03/28/22 (units (unknown) date) unknown) (unknown) (no (unknown) (unknown) 19:00 19:00 (units (un known) date) 20:16 unknown) (unknown) (no (unknown) (unknown) 19:30 03/28/22 (units (unknown) date) unknown) (unknown) (no (unknown) (unknown) 19:30 (units (unkno wn) date) unknown) (unknown) (no (unknown) (unknown) 19:50 03/28/22 (units (unknown) date) unknown) (unknown) (no (unknown) (unknown) 19:50 (units (unkno wn) date) unknown) (unknown) (no (unknown) (unknown) 2847 (units (unkno wn) date) unknown) (unknown) (no (unknown) (unknown) ? (units (unkno wn) date) unknown) (unknown) (no (unknown) (unknown) ALT (<50) IU/L (units (unknown) date) unknown) (unknown) (no (unknown) (unknown) ALT 90 H (<50) (units (unknown) date) IU/L unknown) (unknown) (no (unknown) (unknown) AST (17-59) IU/L (units (unknown) date) unknown) (unknown) (no (unknown) (unknown) AST 91 H (17-59) (units (unknown) date) IU/L unknown) (unknown) (no (unknown) (unknown) Accession (units (unkn own) date) Number: unknown) [id number] ?? (unknown) (no (unknown) (unknown) Acct:[id number] (units (unknown) date) unknown) (unknown) (no (unknown) (unknown) Acetaminophen (units ( unknown) date) (Acetaminophen unknown) 325 Mg Tablet) 650 mg PO Q6HR PRN (unknown) (no (unknown) (unknown) Admit Date/Time: (units (unknown) date) 03/28/22 20:16 unknown) (unknown) (no (unknown) (unknown) Admit Provider: (units (unknown) date) Uemsh Akins unknown) (unknown) (no (unknown) (unknown) Age/Sex: 66 / M (units (unknown) date) unknown) (unknown) (no (unknown) (unknown) Albumin (units (unkno wn) date) (3.5-5.0) g/dL unknown) (unknown) (no (unknown) (unknown) Albumin 4.3 (units (un known) date) (3.5-5.0) g/dL unknown) (unknown) (no (unknown) (unknown) Albumin/Globulin (units (unknown) date) Ratio (1.0-2.8) unknown) (unknown) (no (unknown) (unknown) Albumin/Globulin (units (unknown) date) Ratio 1.3 unknown) (1.0-2.8) (unknown) (no (unknown) (unknown) Alkaline (units (unkno wn) date) Phosphatase unknown) (38-126) U/L (unknown) (no (unknown) (unknown) Alkaline (units (unkno wn) date) Phosphatase 129 H unknown) (38-126) U/L (unknown) (no (unknown) (unknown) Allergies (units (unkn own) date) unknown) (unknown) (no (unknown) (unknown) Allergy/AdvReac (units (unknown) date) Type Severity unknown) Reaction Status Date / Time (unknown) (no (unknown) (unknown) Amorphous (units (unkn own) date) Sediment 1 unknown) (unknown) (no (unknown) (unknown) Amorphous (units (unkn own) date) Sediment unknown) (unknown) (no (unknown) (unknown) Carolyne, AJIT (units ( unknown) date) [id number] unknown) (unknown) (no (unknown) (unknown) Appearance: (units (un known) date) grossly normal unknown) (unknown) (no (unknown) (unknown) Approved by: (units (u nknown) date) Michele Garduno M.D. unknown) on 03/28/2022 at 19:24?? (unknown) (no (unknown) (unknown) Aspirin (Aspirin (units (unknown) date) Ec 81 Mg Tablet) unknown) 81 mg PO DAILY HÉCTOR (unknown) (no (unknown) (unknown) Aspirin Child 81 (units (unknown) date) mg PO DAILY unknown) 11/01/20 11/01/20 (unknown) (no (unknown) (unknown) Atorvastatin (units (u nknown) date) Calcium unknown) (Atorvastatin 20 Mg Tablet) 40 mg PO BEDTIME HÉCTOR (unknown) (no (unknown) (unknown) Atypical chest (units (unknown) date) pain, unknown) Hypertension, Low back pain, Acute urinary retention, (unknown) (no (unknown) (unknown) Auscultation: (units ( unknown) date) clear to unknown) auscultation bilaterally (unknown) (no (unknown) (unknown) BUN (9-20) mg/dL (units (unknown) date) unknown) (unknown) (no (unknown) (unknown) BUN 5 L (9-20) (units (unknown) date) mg/dL unknown) (unknown) (no (unknown) (unknown) BUN/Creatinine (units (unknown) date) Ratio (6-22) unknown) (unknown) (no (unknown) (unknown) BUN/Creatinine (units (unknown) date) Ratio 7.0 (6-22) unknown) (unknown) (no (unknown) (unknown) Baso # (Auto) (units ( unknown) date) (0-100) /uL unknown) (unknown) (no (unknown) (unknown) Baso # (Auto) 0 (units (unknown) date) (0-100) /uL unknown) (unknown) (no (unknown) (unknown) Baso % (Auto) (units ( unknown) date) (0-2) % unknown) (unknown) (no (unknown) (unknown) Baso % (Auto) (units ( unknown) date) 0.8 (0-2) % unknown) (unknown) (no (unknown) (unknown) Bladder scan (units (u nknown) date) upon arrival unknown) shows greater than 600 cc of urine in his bladder. A (unknown) (no (unknown) (unknown) Blood Pressure (units (unknown) date) 134/75 111/69 unknown) (unknown) (no (unknown) (unknown) Blood Pressure (units (unknown) date) 138/84 unknown) (unknown) (no (unknown) (unknown) Blood Pressure (units (unknown) date) 157/83 H unknown) (unknown) (no (unknown) (unknown) Bones and chest (units (unknown) date) wall:? No unknown) suspicious bony lesions.? Prior left clavicle (unknown) (no (unknown) (unknown) CK-MB (CK-2) Rel (units (unknown) date) Index TNP unknown) (unknown) (no (unknown) (unknown) CK-MB (CK-2) Rel (units (unknown) date) Index unknown) (unknown) (no (unknown) (unknown) CK-MB (CK-2) TNP (units (unknown) date) unknown) (unknown) (no (unknown) (unknown) CK-MB (CK-2) (units (u nknown) date) unknown) (unknown) (no (unknown) (unknown) COMPARISON:? (units (u nknown) date) [facility], unknown) CR, XR CHEST 1V, 10/31/2020, 23:19. (unknown) (no (unknown) (unknown) COVID19 -Nasal (units (unknown) date) RAPID/Pre-Proc unknown) Stat (unknown) (no (unknown) (unknown) Calcium (units (unkno wn) date) (8.4-10.2) mg/dL unknown) (unknown) (no (unknown) (unknown) Calcium 8.3 L (units ( unknown) date) (8.4-10.2) mg/dL unknown) (unknown) (no (unknown) (unknown) Carbon Dioxide (units (unknown) date) (22-32) mmol/L unknown) (unknown) (no (unknown) (unknown) Carbon Dioxide (units (unknown) date) 17 L (22-32) unknown) mmol/L (unknown) (no (unknown) (unknown) Cardio (units (unkno wn) date) unknown) (unknown) (no (unknown) (unknown) Chest x-ray: (units (u nknown) date) unknown) (unknown) (no (unknown) (unknown) Chest (units (unkno wn) date) unknown) (unknown) (no (unknown) (unknown) Chest: No (units ( own) date) crepitus and No unknown) tenderness (unknown) (no (unknown) (unknown) Chief complaint: (units (unknown) date) Chest Pain unknown) (unknown) (no (unknown) (unknown) Chloride (units (o wn) date) (98-107) mmol/L unknown) (unknown) (no (unknown) (unknown) Chloride 105 (units (u nknown) date) (98-107) mmol/L unknown) (unknown) (no (unknown) (unknown) Clinical (units (o wn) date) Impression: unknown) (unknown) (no (unknown) (unknown) Complete Blood (units (unknown) date) Count AUTO DIFF unknown) Stat (unknown) (no (unknown) (unknown) Comprehensive (units ( unknown) date) Metabolic Panel unknown) Stat (unknown) (no (unknown) (unknown) Const (units (unkno wn) date) unknown) (unknown) (no (unknown) (unknown) Coronary artery (units (unknown) date) disease unknown) (unknown) (no (unknown) (unknown) Course (units (unkno wn) date) unknown) (unknown) (no (unknown) (unknown) Creatinine (units (unk nown) date) (0.66-1.25) mg/dL unknown) (unknown) (no (unknown) (unknown) Creatinine 0.71 (units (unknown) date) (0.66-1.25) mg/dL unknown) (unknown) (no (unknown) (unknown) D-Dimer (<500) (units (unknown) date) ng/ml unknown) (unknown) (no (unknown) (unknown) D-Dimer 1528 H (units (unknown) date) (<500) ng/ml unknown) (unknown) (no (unknown) (unknown) : 1955 (units (unknown) date) Acct:[id number] unknown) (unknown) (no (unknown) (unknown) : 1955 (units (unknown) date) unknown) (unknown) (no (unknown) (unknown) Date of Service: (units (unknown) date) 03/28/22 unknown) (unknown) (no (unknown) (unknown) Departure (units (unkn own) date) unknown) (unknown) (no (unknown) (unknown) Dextrose (units (unkno wn) date) (Dextrose 50 % In unknown) Water 25 Gm/50 Ml Syringe) 25 gm IV PRN PRN (unknown) (no (unknown) (unknown) Diabetes type 2, (units (unknown) date) uncontrolled unknown) (unknown) (no (unknown) (unknown) Dictated by: (units (u nknown) date) Michele Garduno M.D. unknown) on 03/28/2022 at 19:23 ? ? (unknown) (no (unknown) (unknown) Discharge Plan (units (unknown) date) unknown) (unknown) (no (unknown) (unknown) Discontinued (units (u nknown) date) Medications unknown) (unknown) (no (unknown) (unknown) Documented By: (units (unknown) date) AM Co-signed By: unknown) MS (unknown) (no (unknown) (unknown) Documented By: (units (unknown) date) AM unknown) (unknown) (no (unknown) (unknown) Documented By: (units (unknown) date) OBDULIO unknown) (unknown) (no (unknown) (unknown) Documented By: (units (unknown) date) KF unknown) (unknown) (no (unknown) (unknown) ECG Data (units (unkno wn) date) unknown) (unknown) (no (unknown) (unknown) ED Orders (units (unkn own) date) unknown) (unknown) (no (unknown) (unknown) EKG-12 Lead Stat (units (unknown) date) unknown) (unknown) (no (unknown) (unknown) ER Physician: (units ( unknown) date) Fausto Padgett unknown) D.O. (unknown) (no (unknown) (unknown) Effort + (units (unkno wn) date) Inspection: unknown) normal respiratory effort (unknown) (no (unknown) (unknown) Elevated blood (units (unknown) date) alcohol level unknown) (unknown) (no (unknown) (unknown) Emergency Report (units (unknown) date) unknown) (unknown) (no (unknown) (unknown) Enoxaparin (units (unk nown) date) Sodium unknown) (Enoxaparin 40 Mg/0.4 Ml Syringe) 40 mg SUBCUT DAILY HÉCTOR (unknown) (no (unknown) (unknown) Eos # (Auto) (units (u nknown) date) (0-450) /uL unknown) (unknown) (no (unknown) (unknown) Eos # (Auto) 100 (units (unknown) date) (0-450) /uL unknown) (unknown) (no (unknown) (unknown) Eos % (Auto) (units (u nknown) date) (2-4) % unknown) (unknown) (no (unknown) (unknown) Eos % (Auto) 2.0 (units (unknown) date) (2-4) % unknown) (unknown) (no (unknown) (unknown) Estimated GFR > (units (unknown) date) 60 (>60) mL/min unknown) (unknown) (no (unknown) (unknown) Estimated GFR (units ( unknown) date) (>60) mL/min unknown) (unknown) (no (unknown) (unknown) Ethyl Alcohol ( (units (unknown) date) - 10) mg/dL unknown) (unknown) (no (unknown) (unknown) Ethyl Alcohol (units ( unknown) date) 225 H ( - 10) unknown) mg/dL (unknown) (no (unknown) (unknown) Exam (units (unkno wn) date) unknown) (unknown) (no (unknown) (unknown) Extrem (units (unkno wn) date) unknown) (unknown) (no (unknown) (unknown) Eyes (units (unkno wn) date) unknown) (unknown) (no (unknown) (unknown) FINDINGS:? (units (unk nown) date) unknown) (unknown) (no (unknown) (unknown) Family History (units (unknown) date) (Reviewed unknown) 03/28/22 @ 21:52 by Umesh Akins MD) (unknown) (no (unknown) (unknown) Father (units (unknown) date) Lung cancer unknown) (unknown) (no (unknown) (unknown) Damon catheter (units (unknown) date) was placed. unknown) Patient stated that this did improve his lower (unknown) (no (unknown) (unknown) GI (units (unkno wn) date) unknown) (unknown) (no (unknown) (unknown) Gait: normal (units (u nknown) date) gait unknown) (unknown) (no (unknown) (unknown) General (units (unkno wn) date) unknown) (unknown) (no (unknown) (unknown) General: No ill (units (unknown) date) appearing unknown) (unknown) (no (unknown) (unknown) General: Yes (units (u nknown) date) appearance unknown) normal, both eyes and all related structures (unknown) (no (unknown) (unknown) General: no (units (un known) date) rashes or lesions unknown) noted (unknown) (no (unknown) (unknown) General: normal (units (unknown) date) to inspection, unknown) capillary refill normal and No edema (unknown) (no (unknown) (unknown) General: patient (units (unknown) date) alert, patient unknown) awake and moves all extremities (unknown) (no (unknown) (unknown) Globulin (units (unkno wn) date) (1.7-4.1) g/dL unknown) (unknown) (no (unknown) (unknown) Globulin 3.3 (units (u nknown) date) (1.7-4.1) g/dL unknown) (unknown) (no (unknown) (unknown) Glucose (80-110) (units (unknown) date) mg/dL unknown) (unknown) (no (unknown) (unknown) Glucose 390 H (units ( unknown) date) (80-110) mg/dL unknown) (unknown) (no (unknown) (unknown) H/O heart artery (units (unknown) date) stent unknown) (unknown) (no (unknown) (unknown) HENMT (units (unkno wn) date) unknown) (unknown) (no (unknown) (unknown) HPI - General (units ( unknown) date) Adult unknown) (unknown) (no (unknown) (unknown) HPI narrative: (units (unknown) date) unknown) (unknown) (no (unknown) (unknown) Hct (41-53) % (units ( unknown) date) unknown) (unknown) (no (unknown) (unknown) Hct 47.6 (41-53) (units (unknown) date) % unknown) (unknown) (no (unknown) (unknown) He is no saddle (units (unknown) date) anesthesia. EKG unknown) is unremarkable. Chest x-ray is unremarkable. (unknown) (no (unknown) (unknown) Head: normal to (units (unknown) date) inspection and unknown) normocephalic (unknown) (no (unknown) (unknown) Hgb (13.5-17.5) (units (unknown) date) g/dL unknown) (unknown) (no (unknown) (unknown) Hgb 16.8 (units (unkno wn) date) (13.5-17.5) g/dL unknown) (unknown) (no (unknown) (unknown) History of (units (unk nown) date) Present Illness unknown) (unknown) (no (unknown) (unknown) Home Medications (units (unknown) date) unknown) (unknown) (no (unknown) (unknown) Hydromorphone (units ( unknown) date) HCl unknown) (Hydromorphone 1 Mg Inj) 1 mg IV NOW ONE (unknown) (no (unknown) (unknown) Hyperglycemia (units ( unknown) date) unknown) (unknown) (no (unknown) (unknown) IMPRESSION:? (units (u nknown) date) unknown) (unknown) (no (unknown) (unknown) INDICATIONS:? (units ( unknown) date) chest pain unknown) (unknown) (no (unknown) (unknown) Imaging Data (units (u nknown) date) unknown) (unknown) (no (unknown) (unknown) Initial Vital (units ( unknown) date) Signs unknown) (unknown) (no (unknown) (unknown) Initial Vital (units ( unknown) date) Signs: unknown) (unknown) (no (unknown) (unknown) Inspection: (units (un known) date) normal to unknown) inspection (unknown) (no (unknown) (unknown) Insulin Human (units ( unknown) date) Lispro (Insulin unknown) Lispro 100 Unit/Ml 3ml Vial) 0 unit SUBCUT ACHS (unknown) (no (unknown) (unknown) Interpretation: (units (unknown) date) unknown) (unknown) (no (unknown) (unknown) [facility] (units (unknown) date) [address] unknown) [place] [address] (unknown) (no (unknown) (unknown) [facility] (units (unknown) date) unknown) (unknown) (no (unknown) (unknown) Lab Data (units (unkno wn) date) unknown) (unknown) (no (unknown) (unknown) Lab Results (units (un known) date) unknown) (unknown) (no (unknown) (unknown) Lab results (units (un known) date) reviewed: Yes I unknown) reviewed the patient's lab results. (unknown) (no (unknown) (unknown) Labs: (units (unkno wn) date) unknown) (unknown) (no (unknown) (unknown) Last Admin: (units (un known) date) 03/28/22 19:29 unknown) Dose: 6 ml (unknown) (no (unknown) (unknown) Last Admin: (units (un known) date) 03/28/22 19:32 unknown) Dose: 4 mg (unknown) (no (unknown) (unknown) Last Admin: (units (un known) date) 03/28/22 20:19 unknown) Dose: 1 mg (unknown) (no (unknown) (unknown) Last Admin: (units (un known) date) 03/28/22 23:50 unknown) Dose: 4 mg (unknown) (no (unknown) (unknown) Last Admin: (units (un known) date) 03/28/22 23:50 unknown) Dose: 50 mg (unknown) (no (unknown) (unknown) Last Admin: (units (un known) date) 03/28/22 23:51 unknown) Dose: 40 mg (unknown) (no (unknown) (unknown) Last Admin: (units (un known) date) 03/29/22 00:02 unknown) Dose: 3 unit (unknown) (no (unknown) (unknown) Lesions: no (units (un known) date) lesions unknown) (unknown) (no (unknown) (unknown) Lidocaine HCl (units ( unknown) date) (Lidocaine 2% unknown) (Glydo) 6 Ml Gel) 6 ml TOP NOW ONE (unknown) (no (unknown) (unknown) Limitations: no (units (unknown) date) limitations unknown) (unknown) (no (unknown) (unknown) Lipase (23-300) (units (unknown) date) U/L unknown) (unknown) (no (unknown) (unknown) Lipase 648 H (units (u nknown) date) (23-300) U/L unknown) (unknown) (no (unknown) (unknown) Lipase Stat (units (un known) date) unknown) (unknown) (no (unknown) (unknown) Loc: ED (units (unkno wn) date) unknown) (unknown) (no (unknown) (unknown) Lungs and (units (unkn own) date) pleura:? Lungs unknown) are clear.? No pleural effusions or pneumothorax.? (unknown) (no (unknown) (unknown) Lymph # (Auto) (units (unknown) date) (8078-0309) /uL unknown) (unknown) (no (unknown) (unknown) Lymph # (Auto) (units (unknown) date) 2200 (9367-7808) unknown) /uL (unknown) (no (unknown) (unknown) Lymph % (Auto) (units (unknown) date) (25-40) % unknown) (unknown) (no (unknown) (unknown) Lymph % (Auto) (units (unknown) date) 34.0 (25-40) % unknown) (unknown) (no (unknown) (unknown) MCH (26-34) PG (units (unknown) date) unknown) (unknown) (no (unknown) (unknown) MCH 30.7 (26-34) (units (unknown) date) PG unknown) (unknown) (no (unknown) (unknown) MCHC (30-36) % (units (unknown) date) unknown) (unknown) (no (unknown) (unknown) MCHC 35.2 (units (unkn own) date) (30-36) % unknown) (unknown) (no (unknown) (unknown) MCV (80-100) fL (units (unknown) date) unknown) (unknown) (no (unknown) (unknown) MCV 87.2 (units (unkno wn) date) (80-100) fL unknown) (unknown) (no (unknown) (unknown) MDM Narrative (units ( unknown) date) unknown) (unknown) (no (unknown) (unknown) MR#: [id number] (units (unknown) date) unknown) (unknown) (no (unknown) (unknown) Magnesium (units (unkn own) date) (1.6-2.3) mg/dL unknown) (unknown) (no (unknown) (unknown) Magnesium 1.8 (units ( unknown) date) (1.6-2.3) mg/dL unknown) (unknown) (no (unknown) (unknown) Magnesium Stat (units (unknown) date) unknown) (unknown) (no (unknown) (unknown) Mediastinum:? (units ( unknown) date) Mediastinal unknown) contours appear normal.? Heart size is normal.? (unknown) (no (unknown) (unknown) Medical Decision (units (unknown) date) Making unknown) (unknown) (no (unknown) (unknown) Medical History (units (unknown) date) (Reviewed unknown) 03/28/22 @ 21:52 by Umesh Akins MD) (unknown) (no (unknown) (unknown) Medical decision (units (unknown) date) making narrative: unknown) (unknown) (no (unknown) (unknown) Medication (units (unk nown) date) Instructions unknown) Recorded Confirmed (unknown) (no (unknown) (unknown) Medication (units (unk nown) date) Instructions unknown) Recorded (unknown) (no (unknown) (unknown) Medicine will (units ( unknown) date) admit for further unknown) evaluation and treatment. The D-dimer and (unknown) (no (unknown) (unknown) Mode of arrival: (units (unknown) date) EMS unknown) (unknown) (no (unknown) (unknown) [place] # (Auto) (units ( unknown) date) (0-900) /uL unknown) (unknown) (no (unknown) (unknown) [place] # (Auto) (units ( unknown) date) 400 (0-900) /uL unknown) (unknown) (no (unknown) (unknown) [place] % (Auto) (units ( unknown) date) (3-14) % unknown) (unknown) (no (unknown) (unknown) [place] % (Auto) (units ( unknown) date) 6.3 (3-14) % unknown) (unknown) (no (unknown) (unknown) Morphine Sulfate (units (unknown) date) (Morphine 4 Mg/Ml unknown) Inj) 4 mg IV NOW ONE (unknown) (no (unknown) (unknown) [facility] (units (unknown) date) history unknown unknown) (unknown) (no (unknown) (unknown) Neuro (units (unkno wn) date) unknown) (unknown) (no (unknown) (unknown) Neut # (Auto) (units ( unknown) date) (7338-9363) /uL unknown) (unknown) (no (unknown) (unknown) Neut # (Auto) (units ( unknown) date) 3700 (7363-1479) unknown) /uL (unknown) (no (unknown) (unknown) Neut % (Auto) (units ( unknown) date) (50-75) % unknown) (unknown) (no (unknown) (unknown) Neut % (Auto) (units ( unknown) date) 56.9 (50-75) % unknown) (unknown) (no (unknown) (unknown) No Known Drug (units ( unknown) date) Allergies Allergy unknown) Verified 10/31/20 23:10 (unknown) (no (unknown) (unknown) No ST T wave (units (u nknown) date) changes unknown) (unknown) (no (unknown) (unknown) No acute osseous (units (unknown) date) abnormality. unknown) (unknown) (no (unknown) (unknown) Normal axis (units (un known) date) unknown) (unknown) (no (unknown) (unknown) Ondansetron HCl (units (unknown) date) (Ondansetron 4 unknown) Mg/2 Ml Inj) 4 mg IV Q8HR PRN (unknown) (no (unknown) (unknown) Ordered: (units (unkno wn) date) unknown) (unknown) (no (unknown) (unknown) Ordering (units (unkno wn) date) Provider: unknown) Fausto Padgett D.O. (unknown) (no (unknown) (unknown) Orders (units (unkno wn) date) unknown) (unknown) (no (unknown) (unknown) Overlying soft (units (unknown) date) tissues appear unknown) unremarkable.? (unknown) (no (unknown) (unknown) Oxygen Delivery (units (unknown) date) Method 03/28/22 unknown) 18:51 (unknown) (no (unknown) (unknown) Oxygen Delivery (units (unknown) date) Method Room Air unknown) (unknown) (no (unknown) (unknown) Oxygen Delivery (units (unknown) date) Method unknown) (unknown) (no (unknown) (unknown) PRN Reason: (units (un known) date) Fever/Mild Pain unknown) (1-3) (unknown) (no (unknown) (unknown) PRN Reason: (units (un known) date) Hypoglycemia unknown) (unknown) (no (unknown) (unknown) PRN Reason: (units (un known) date) Nausea And unknown) Vomiting (unknown) (no (unknown) (unknown) PRN Reason: (units (un known) date) Pain, Moderate unknown) (4-6) (unknown) (no (unknown) (unknown) PROCEDURE:? XR (units (unknown) date) CHEST 1V unknown) (unknown) (no (unknown) (unknown) Palpation: soft, (units (unknown) date) No firm and unknown) tender (Diffuse tenderness and suprapubic region) (unknown) (no (unknown) (unknown) Patient (units (unkno wn) date) Disposition: unknown) Admitted as Observation (unknown) (no (unknown) (unknown) Patient History (units (unknown) date) unknown) (unknown) (no (unknown) (unknown) Patient is a (units (u nknown) date) 66-year-old male. unknown) Is from [facility]. Malay is a 2nd language. He (unknown) (no (unknown) (unknown) Patient: (units (unkno wn) date) Frank Chan MR#: unknown) [id number] (unknown) (no (unknown) (unknown) Patient: (units (unkno wn) date) Frank Chan unknown) (unknown) (no (unknown) (unknown) Plt Count (units (unkn own) date) (150-400) X103/uL unknown) (unknown) (no (unknown) (unknown) Plt Count 154 (units ( unknown) date) (150-400) X103/uL unknown) (unknown) (no (unknown) (unknown) Potassium (units (unkn own) date) (3.4-5.1) mmol/L unknown) (unknown) (no (unknown) (unknown) Potassium 5.4 H (units (unknown) date) (3.4-5.1) mmol/L unknown) (unknown) (no (unknown) (unknown) Previous Rx's (units ( unknown) date) unknown) (unknown) (no (unknown) (unknown) Procedure: XR (units ( unknown) date) chest 1V unknown) (unknown) (no (unknown) (unknown) Psych (units (unkno wn) date) unknown) (unknown) (no (unknown) (unknown) Pulse Oximetry (units (unknown) date) 95 03/28/22 18:51 unknown) (unknown) (no (unknown) (unknown) Pulse Oximetry (units (unknown) date) 95 95 unknown) (unknown) (no (unknown) (unknown) Pulse Oximetry (units (unknown) date) 95 96 unknown) (unknown) (no (unknown) (unknown) Pulse Oximetry (units (unknown) date) 95 unknown) (unknown) (no (unknown) (unknown) Pulse Rate 102 H (units (unknown) date) 97 H unknown) (unknown) (no (unknown) (unknown) Pulse Rate 104 H (units (unknown) date) unknown) (unknown) (no (unknown) (unknown) Pulse Rate 120 H (units (unknown) date) 03/28/22 18:51 unknown) (unknown) (no (unknown) (unknown) Pulse Rate 120 H (units (unknown) date) 107 H unknown) (unknown) (no (unknown) (unknown) RBC (4.5-5.9) (units ( unknown) date) X106/uL unknown) (unknown) (no (unknown) (unknown) RBC 5.46 (units (unkno wn) date) (4.5-5.9) X106/uL unknown) (unknown) (no (unknown) (unknown) RDW (11.6-14.8) (units (unknown) date) % unknown) (unknown) (no (unknown) (unknown) RDW 14.1 (units (unkno wn) date) (11.6-14.8) % unknown) (unknown) (no (unknown) (unknown) ROS Unobtainable: (units (unknown) date) All systems unknown) reviewed + are unremarkable except as noted in HPI (unknown) (no (unknown) (unknown) Radiologist's (units ( unknown) date) Impression: unknown) (unknown) (no (unknown) (unknown) Rate: (units (unkno wn) date) tachycardic unknown) (unknown) (no (unknown) (unknown) Related Data (units (u nknown) date) unknown) (unknown) (no (unknown) (unknown) Resp (units (unkno wn) date) unknown) (unknown) (no (unknown) (unknown) Respiratory Rate (units (unknown) date) 11 L unknown) (unknown) (no (unknown) (unknown) Respiratory Rate (units (unknown) date) 26 H 03/28/22 unknown) 18:51 (unknown) (no (unknown) (unknown) Respiratory Rate (units (unknown) date) 26 H unknown) (unknown) (no (unknown) (unknown) Respiratory Rate (units (unknown) date) unknown) (unknown) (no (unknown) (unknown) Result diagrams: (units (unknown) date) unknown) (unknown) (no (unknown) (unknown) Review of (units (unkn own) date) Systems unknown) (unknown) (no (unknown) (unknown) Rhythm: regular (units (unknown) date) rhythm unknown) (unknown) (no (unknown) (unknown) SARS-CoV-2 (PCR) (units (unknown) date) (Negative) unknown) (unknown) (no (unknown) (unknown) SARS-CoV-2 (PCR) (units (unknown) date) Negative unknown) (Negative) (unknown) (no (unknown) (unknown) HÉCTOR; Protocol (units ( unknown) date) unknown) (unknown) (no (unknown) (unknown) Signed By: (units (unk nown) date) unknown) (unknown) (no (unknown) (unknown) Signed (units (unkno wn) date) unknown) (unknown) (no (unknown) (unknown) Sinus rhythm (units (u nknown) date) unknown) (unknown) (no (unknown) (unknown) Skin (units (unkno wn) date) unknown) (unknown) (no (unknown) (unknown) Smoking Status: (units (unknown) date) Current every day unknown) smoker (unknown) (no (unknown) (unknown) Social History (units (unknown) date) (Reviewed unknown) 03/29/22 @ 01:41 by Fausto Padgett DO) (unknown) (no (unknown) (unknown) Sodium (137-145) (units (unknown) date) mmol/L unknown) (unknown) (no (unknown) (unknown) Sodium 138 (units (unk nown) date) (137-145) mmol/L unknown) (unknown) (no (unknown) (unknown) Source: patient (units (unknown) date) unknown) (unknown) (no (unknown) (unknown) Speech: speech (units (unknown) date) normal unknown) (unknown) (no (unknown) (unknown) Stated (units (unkno wn) date) complaint: unknown) Bilateral LE, pelvis and chest wall pain (unknown) (no (unknown) (unknown) Stop: 03/28/22 (units (unknown) date) 18:44 unknown) (unknown) (no (unknown) (unknown) Stop: 03/28/22 (units (unknown) date) 19:00 unknown) (unknown) (no (unknown) (unknown) Stop: 03/28/22 (units (unknown) date) 20:06 unknown) (unknown) (no (unknown) (unknown) Substance Use (units ( unknown) date) Type: does not unknown) use (unknown) (no (unknown) (unknown) Surgical History (units (unknown) date) (Reviewed unknown) 03/29/22 @ 01:41 by Fausto Padgett DO) (unknown) (no (unknown) (unknown) Surgical changes (units (unknown) date) and devices:? unknown) None.? (unknown) (no (unknown) (unknown) TECHNIQUE:? One (units (unknown) date) view of the chest unknown) was acquired.? (unknown) (no (unknown) (unknown) Time Seen by (units (u nknown) date) Provider: unknown) 03/28/22 18:45 (unknown) (no (unknown) (unknown) Total Bilirubin (units (unknown) date) (0.2-1.3) mg/dL unknown) (unknown) (no (unknown) (unknown) Total Bilirubin (units (unknown) date) 1.1 (0.2-1.3) unknown) mg/dL (unknown) (no (unknown) (unknown) Total Creatine (units (unknown) date) Kinase (55-170) unknown) U/L (unknown) (no (unknown) (unknown) Total Creatine (units (unknown) date) Kinase 38 L unknown) (55-170) U/L (unknown) (no (unknown) (unknown) Total Protein (units ( unknown) date) (6.3-8.2) g/dL unknown) (unknown) (no (unknown) (unknown) Total Protein (units ( unknown) date) 7.6 (6.3-8.2) unknown) g/dL (unknown) (no (unknown) (unknown) Tramadol HCl (units (u nknown) date) (Tramadol 50 Mg unknown) Tablet) 50 mg PO Q4H PRN (unknown) (no (unknown) (unknown) Troponin + CK (units ( unknown) date) Cardiac Panel unknown) Stat (unknown) (no (unknown) (unknown) Troponin I < (units (u nknown) date) 0.012 unknown) (0.01-0.034) ng/mL (unknown) (no (unknown) (unknown) Troponin I (units (unk nown) date) (0.01-0.034) unknown) ng/mL (unknown) (no (unknown) (unknown) Troponins (units (unkn own) date) negative. Patient unknown) does not have a primary care doctor. Initially (unknown) (no (unknown) (unknown) Ur Culture (units (unk nown) date) Indicated? Cult unknown) not indicated (unknown) (no (unknown) (unknown) Ur Culture (units (unk nown) date) Indicated? unknown) (unknown) (no (unknown) (unknown) Ur Leukocyte (units (u nknown) date) Esterase unknown) (NEGATIVE) (unknown) (no (unknown) (unknown) Ur Leukocyte (units (u nknown) date) Esterase Negative unknown) (NEGATIVE) (unknown) (no (unknown) (unknown) Ur Specific (units (un known) date) [place] <=1.005 unknown) (1.000-1.035) (unknown) (no (unknown) (unknown) Ur Specific (units (un known) date) [place] unknown) (1.000-1.035) (unknown) (no (unknown) (unknown) Urinalysis and (units (unknown) date) Microscopic Stat unknown) (unknown) (no (unknown) (unknown) Urine Appearance (units (unknown) date) Clear unknown) (unknown) (no (unknown) (unknown) Urine Appearance (units (unknown) date) unknown) (unknown) (no (unknown) (unknown) Urine Bacteria (units (unknown) date) (None) unknown) (unknown) (no (unknown) (unknown) Urine Bacteria (units (unknown) date) None seen (None) unknown) (unknown) (no (unknown) (unknown) Urine Bilirubin (units (unknown) date) (NEGATIVE) unknown) (unknown) (no (unknown) (unknown) Urine Bilirubin (units (unknown) date) Negative unknown) (NEGATIVE) (unknown) (no (unknown) (unknown) Urine Color (units (un known) date) Yellow unknown) (unknown) (no (unknown) (unknown) Urine Color (units (un known) date) unknown) (unknown) (no (unknown) (unknown) Urine Glucose (units ( unknown) date) (UA) (Negative) unknown) g/dL (unknown) (no (unknown) (unknown) Urine Glucose (units ( unknown) date) (UA) 3+ H unknown) (Negative) g/dL (unknown) (no (unknown) (unknown) Urine Ketones (units ( unknown) date) (NEGATIVE) unknown) (unknown) (no (unknown) (unknown) Urine Ketones (units ( unknown) date) Negative unknown) (NEGATIVE) (unknown) (no (unknown) (unknown) Urine Nitrate (units ( unknown) date) (Negative) unknown) (unknown) (no (unknown) (unknown) Urine Nitrate (units ( unknown) date) Negative unknown) (Negative) (unknown) (no (unknown) (unknown) Urine Occult (units (u nknown) date) Blood (Negative) unknown) (unknown) (no (unknown) (unknown) Urine Occult (units (u nknown) date) Blood Negative unknown) (Negative) (unknown) (no (unknown) (unknown) Urine Protein (units ( unknown) date) (Negative) unknown) (unknown) (no (unknown) (unknown) Urine Protein (units ( unknown) date) Negative unknown) (Negative) (unknown) (no (unknown) (unknown) Urine RBC (units (unkn own) date) (0-5/HPF) unknown) (unknown) (no (unknown) (unknown) Urine RBC (units (unkn own) date) 0-1/hpf (0-5/HPF) unknown) (unknown) (no (unknown) (unknown) Urine (units (unkno wn) date) Urobilinogen unknown) (0.2) E.U./dL (unknown) (no (unknown) (unknown) Urine (units (unkno wn) date) Urobilinogen 0.2 unknown) (0.2) E.U./dL (unknown) (no (unknown) (unknown) Urine WBC (units (unkn own) date) (0-5/HPF) unknown) (unknown) (no (unknown) (unknown) Urine WBC None (units (unknown) date) seen (0-5/HPF) unknown) (unknown) (no (unknown) (unknown) Urine pH (units (unkno wn) date) (4.5-8.0) unknown) (unknown) (no (unknown) (unknown) Urine pH 5.0 (units (u nknown) date) (4.5-8.0) unknown) (unknown) (no (unknown) (unknown) Ventricular rate (units (unknown) date) 106 unknown) (unknown) (no (unknown) (unknown) Vital Signs - 8 (units (unknown) date) hr unknown) (unknown) (no (unknown) (unknown) Vital Signs (units (un known) date) unknown) (unknown) (no (unknown) (unknown) Vital signs: (units (u nknown) date) unknown) (unknown) (no (unknown) (unknown) WBC (4.5-11.0) (units (unknown) date) X103/uL unknown) (unknown) (no (unknown) (unknown) WBC 6.5 (units (unkno wn) date) (4.5-11.0) unknown) X103/uL (unknown) (no (unknown) (unknown) XR chest 1V Stat (units (unknown) date) unknown) (unknown) (no (unknown) (unknown) XRay Report (units (un known) date) unknown) (unknown) (no (unknown) (unknown) [Embedded Image (units (unknown) date) Not Available] unknown) (unknown) (no (unknown) (unknown) abdominal (units (unkn own) date) discomfort unknown) somewhat. His lower back pain is not new. The pain in his (unknown) (no (unknown) (unknown) alcohol intake: (units (unknown) date) former unknown) (unknown) (no (unknown) (unknown) alcohol level (units ( unknown) date) were ordered by unknown) admitting team. Discussed the need for admission (unknown) (no (unknown) (unknown) and below (units (unkn own) date) unknown) (unknown) (no (unknown) (unknown) appears that he (units (unknown) date) has chronic low unknown) back pain but over the past several days/weeks (unknown) (no (unknown) (unknown) atorvastatin 40 (units (unknown) date) mg tablet unknown) (Lipitor) 40 mg PO DAILY 10/31/20 11/01/20 (unknown) (no (unknown) (unknown) bathroom and has (units (unknown) date) soiled himself in unknown) the past because he could not get up off of (unknown) (no (unknown) (unknown) can ascertain (units ( unknown) date) the started unknown) yesterday. No shortness of breath. Initially there (unknown) (no (unknown) (unknown) capsule (units (unkno wn) date) unknown) (unknown) (no (unknown) (unknown) chest (units (unkno wn) date) discomfort. unknown) Discussed the case with Dr. Akins on-call for Internal (unknown) (no (unknown) (unknown) denied any other (units (unknown) date) medical problems unknown) to myself and states he does not take any (unknown) (no (unknown) (unknown) denied multiple (units (unknown) date) offers for unknown) translation services. He is brought in by EMS for (unknown) (no (unknown) (unknown) difficult to (units (u nknown) date) determine what is unknown) new for this patient and what is not new. It (unknown) (no (unknown) (unknown) evaluation of (units ( unknown) date) worsening of his unknown) chronic lower back pain, bilateral lower (unknown) (no (unknown) (unknown) extremity (units (unkn own) date) weakness, pain in unknown) his abdomen and bladder area, chest pain. Somewhat (unknown) (no (unknown) (unknown) fenofibrate (units (un known) date) micronized 134 mg unknown) 134 mg PO DAILY 11/01/20 11/01/20 (unknown) (no (unknown) (unknown) fracture.? (units (unk nown) date) unknown) (unknown) (no (unknown) (unknown) his chair. He (units ( unknown) date) also describes unknown) pain in his lower abdomen. He is had pain all (unknown) (no (unknown) (unknown) his pain seems (units (unknown) date) to have worsened. unknown) He also has pain down both of his legs. He (unknown) (no (unknown) (unknown) his urinary (units (un known) date) retention did unknown) consider cauda equina. Patient denies any trauma. (unknown) (no (unknown) (unknown) household (units (unkn own) date) members: unknown) significant other (unknown) (no (unknown) (unknown) is not worse (units (u nknown) date) with movement or unknown) palpation of breathing. He denied any other (unknown) (no (unknown) (unknown) legs are not (units (u nknown) date) new. This has unknown) been going on for several weeks/months. Because of (unknown) (no (unknown) (unknown) lower abdomen (units ( unknown) date) over the past unknown) couple days. He stated that the last time that he (unknown) (no (unknown) (unknown) medical problems (units (unknown) date) but his lower unknown) back pain to myself. (unknown) (no (unknown) (unknown) medications. I (units (unknown) date) do feel patient unknown) does need further risk stratification of his (unknown) (no (unknown) (unknown) metformin 500 mg (units (unknown) date) tablet 500 mg PO unknown) BID 10/31/20 11/01/20 (unknown) (no (unknown) (unknown) metoprolol (units (unk nown) date) succinate 25 mg unknown) 25 mg PO DAILY 10/31/20 11/01/20 (unknown) (no (unknown) (unknown) naproxen sodium (units (unknown) date) 220 mg capsule unknown) 220 mg PO BID 03/28/22 03/28/22 (unknown) (no (unknown) (unknown) over his abdomen (units (unknown) date) for several weeks unknown) now if not longer but worsening pain in his (unknown) (no (unknown) (unknown) oxycodone 5 mg (units (unknown) date) tablet 5 mg PO unknown) Q8HR PRN Pain. 10/31/20 11/01/20 (unknown) (no (unknown) (unknown) pantoprazole 40 (units (unknown) date) mg PO BID ##0 unknown) 11/01/20 (unknown) (no (unknown) (unknown) states that this (units (unknown) date) causes him to be unknown) so weak that he can not make it to the (unknown) (no (unknown) (unknown) tablet,extended (units (unknown) date) release 24 hr unknown) (unknown) (no (unknown) (unknown) urinated was (units (u nknown) date) several hours unknown) ago. He is also having chest discomfort. For what I (unknown) (no (unknown) (unknown) were reports (units (u nknown) date) that the pain was unknown) worse with palpation however he told me that it (unknown) (no (unknown) (unknown) with the (units (unkno wn) date) patient. He unknown) expressed understanding and agreement as well. Result panel [id number] (unknown) (no date) (unknown) (unknown) 0 /ul (unkn own) (unknown) (no date) (unknown) (unknown) 0.3 % (unkn own) (unknown) (no date) (unknown) (unknown) 1.4 % (unkn own) (unknown) (no date) (unknown) (unknown) 100 /ul (unkn own) (unknown) (no date) (unknown) (unknown) 13.9 % (unkn own) (unknown) (no date) (unknown) (unknown) 152 x10 3/ul (unkn own) (unknown) (no date) (unknown) (unknown) 16.7 g/dl (unkn own) (unknown) (no date) (unknown) (unknown) 1600 /ul (unkn own) (unknown) (no date) (unknown) (unknown) 25.1 % (unkn own) (unknown) (no date) (unknown) (unknown) 30.2 pg (unkn own) (unknown) (no date) (unknown) (unknown) 34.5 % (unkn own) (unknown) (no date) (unknown) (unknown) 4200 /ul (unkn own) (unknown) (no date) (unknown) (unknown) 48.4 % (unkn own) (unknown) (no date) (unknown) (unknown) 5.51 x10 6/ul (unkn own) (unknown) (no date) (unknown) (unknown) 6.5 x10 3/ul (unkn own) (unknown) (no date) (unknown) (unknown) 600 /ul (unkn own) (unknown) (no date) (unknown) (unknown) 63.8 % (unkn own) (unknown) (no date) (unknown) (unknown) 87.7 fl (unkn own) (unknown) (no date) (unknown) (unknown) 9.4 % (unkn own) Result panel 573 (unknown) (no date) (unknown) (unknown) > 60 ml/min (unkn own) (unknown) (no date) (unknown) (unknown) > 60 ml/min (unkn own) (unknown) (no date) (unknown) (unknown) 0.77 mg/dl (unkn own) (unknown) (no date) (unknown) (unknown) 10.4 (units unknown) (unknown) (unknown) (no date) (unknown) (unknown) 101 mmol/l (unkn own) (unknown) (no date) (unknown) (unknown) 138 mmol/l (unkn own) (unknown) (no date) (unknown) (unknown) 23 mmol/l (unkn own) (unknown) (no date) (unknown) (unknown) 320 mg/dl (unkn own) (unknown) (no date) (unknown) (unknown) 320 mg/dl (unkn own) (unknown) (no date) (unknown) (unknown) 4.4 mmol/l (unkn own) (unknown) (no date) (unknown) (unknown) 8 mg/dl (unkn own) (unknown) (no date) (unknown) (unknown) 8.9 mg/dl (unkn own) Result panel 574 (unknown) (no date) (unknown) (unknown) > 60 ml/min (unkn own) (unknown) (no date) (unknown) (unknown) > 60 ml/min (unkn own) (unknown) (no date) (unknown) (unknown) < 0.012 ng/ml (unkn own) (unknown) (no date) (unknown) (unknown) < 0.012 ng/ml (unkn own) (unknown) (no date) (unknown) (unknown) 0.0 md/dl (unkn own) (unknown) (no date) (unknown) (unknown) 0.5 mg/dl (unkn own) (unknown) (no date) (unknown) (unknown) 0.77 mg/dl (unkn own) (unknown) (no date) (unknown) (unknown) 0.8 mg/dl (unkn own) (unknown) (no date) (unknown) (unknown) 1.4 (units (unkn own) unknown) (unknown) (no date) (unknown) (unknown) 10.4 (units (unkn own) unknown) (unknown) (no date) (unknown) (unknown) 101 mmol/l (unkn own) (unknown) (no date) (unknown) (unknown) 136 u/l (unkn own) (unknown) (no date) (unknown) (unknown) 138 mmol/l (unkn own) (unknown) (no date) (unknown) (unknown) 23 mmol/l (unkn own) (unknown) (no date) (unknown) (unknown) 3.0 g/dl (unkn own) (unknown) (no date) (unknown) (unknown) 320 mg/dl (unkn own) (unknown) (no date) (unknown) (unknown) 320 mg/dl (unkn own) (unknown) (no date) (unknown) (unknown) 4.2 g/dl (unkn own) (unknown) (no date) (unknown) (unknown) 4.4 mmol/l (unkn own) (unknown) (no date) (unknown) (unknown) 7.2 g/dl (unkn own) (unknown) (no date) (unknown) (unknown) 74 iu/l (unkn own) (unknown) (no date) (unknown) (unknown) 8 mg/dl (unkn own) (unknown) (no date) (unknown) (unknown) 8.9 mg/dl (unkn own) (unknown) (no date) (unknown) (unknown) 85 iu/l (unkn own) Result panel 575 (unknown) (no (unknown) (unknown) (no value) (units (unk nown) date) unknown) (unknown) (no (unknown) (unknown) (past 8 hours): (units (unknown) date) unknown) (unknown) (no (unknown) (unknown) -CT abdomen (units (un known) date) ordered unknown) (unknown) (no (unknown) (unknown) -MRI lumbar (units (un known) date) spine unknown) (unknown) (no (unknown) (unknown) -PT eval (units (unkno wn) date) unknown) (unknown) (no (unknown) (unknown) -also possibly (units (unknown) date) secondary to back unknown) pathology (unknown) (no (unknown) (unknown) -check a1c (units (unk nown) date) unknown) (unknown) (no (unknown) (unknown) -check etoh (units (un known) date) level unknown) (unknown) (no (unknown) (unknown) -continue to (units (u nknown) date) trend troponins unknown) (unknown) (no (unknown) (unknown) -encourage (units (unk nown) date) cessation unknown) (unknown) (no (unknown) (unknown) -etiology likely (units (unknown) date) BPH unknown) (unknown) (no (unknown) (unknown) -has denied in (units (unknown) date) past and had unknown) elevated etoh level (unknown) (no (unknown) (unknown) -initial glucose (units (unknown) date) >390 unknown) (unknown) (no (unknown) (unknown) -likely will (units (u nknown) date) need to dc with unknown) damon and follow up with urology (unknown) (no (unknown) (unknown) -lipase only (units (u nknown) date) mildly elevated unknown) (unknown) (no (unknown) (unknown) -lumbar MRI (units (un known) date) ordered unknown) (unknown) (no (unknown) (unknown) -no recent (units (unk nown) date) cardiac workup unknown) (unknown) (no (unknown) (unknown) -now has lower (units (unknown) date) extremity unknown) numbness, weakness, urinary retention, and question of (unknown) (no (unknown) (unknown) -order CT (units (unkn own) date) abdomen/pelvis unknown) for further evaluation (unknown) (no (unknown) (unknown) -ordered (units (unkno wn) date) aspirin/statin unknown) (unknown) (no (unknown) (unknown) -ordered for (units (u nknown) date) pain meds unknown) (unknown) (no (unknown) (unknown) -ordered nuc (units (u nknown) date) stress test unknown) (unknown) (no (unknown) (unknown) -patient denies (units (unknown) date) alcohol abuse unknown) (unknown) (no (unknown) (unknown) -patient has (units (u nknown) date) chronic back pain unknown) from previous injury (unknown) (no (unknown) (unknown) -patient has (units (u nknown) date) history of CAD unknown) s/p AK (unknown) (no (unknown) (unknown) -patient not (units (u nknown) date) taking any unknown) medications (unknown) (no (unknown) (unknown) -plan to start (units (unknown) date) flomax prior to unknown) DC if MRI negative (unknown) (no (unknown) (unknown) -possibly (units (unkn own) date) secondary to unknown) diabetes (unknown) (no (unknown) (unknown) -question if (units (u nknown) date) patient uses unknown) alcohol (unknown) (no (unknown) (unknown) -rule out spinal (units (unknown) date) process with MRI unknown) (unknown) (no (unknown) (unknown) -start insulin (units (unknown) date) sliding scale unknown) (unknown) (no (unknown) (unknown) -trend daily (units (u nknown) date) unknown) (unknown) (no (unknown) (unknown) -workup diabetes (units (unknown) date) as above unknown) (unknown) (no (unknown) (unknown) 01:14 03/29/22 (units (unknown) date) unknown) (unknown) (no (unknown) (unknown) 05:29 (units (unkno wn) date) unknown) (unknown) (no (unknown) (unknown) 05:40 05:40 (units (un known) date) 05:40 unknown) (unknown) (no (unknown) (unknown) 1. Chest pain (units ( unknown) date) unknown) (unknown) (no (unknown) (unknown) 10. (units (unkno wn) date) Transaminitis unknown) (unknown) (no (unknown) (unknown) 03/28/22 (units (unkno wn) date) 03/28/22 03/28/22 unknown) (unknown) (no (unknown) (unknown) 03/29/22 05:40 (units (unknown) date) unknown) (unknown) (no (unknown) (unknown) 03/29/22 (units (unkno wn) date) 03/29/22 03/29/22 unknown) (unknown) (no (unknown) (unknown) 03/29/22 (units (unkno wn) date) unknown) (unknown) (no (unknown) (unknown) 17:00 19:00 (units (un known) date) 19:00 unknown) (unknown) (no (unknown) (unknown) 19:00 19:00 (units (un known) date) 20:16 unknown) (unknown) (no (unknown) (unknown) 1690 (units (unkno wn) date) unknown) (unknown) (no (unknown) (unknown) 3. Type 2 (units (unkn own) date) Diabetes unknown) (unknown) (no (unknown) (unknown) 4. Back pain (units (u nknown) date) unknown) (unknown) (no (unknown) (unknown) 5. Lower (units (unkno wn) date) extremity unknown) numbness (unknown) (no (unknown) (unknown) 6. Urinary (units (unk nown) date) retention, acute unknown) (unknown) (no (unknown) (unknown) 7. Abdominal (units (u nknown) date) pain unknown) (unknown) (no (unknown) (unknown) 8. Active smoker (units (unknown) date) unknown) (unknown) (no (unknown) (unknown) 9. Possible (units (un known) date) alcohol abuse unknown) (unknown) (no (unknown) (unknown) ABD: soft, (units (unk nown) date) tender to unknown) palpation, no rebound/guarding, no organomegaly, normal (unknown) (no (unknown) (unknown) ALT 85 H (units (unkno wn) date) unknown) (unknown) (no (unknown) (unknown) ALT 90 H (units (unkno wn) date) unknown) (unknown) (no (unknown) (unknown) ALT (units (unkno wn) date) unknown) (unknown) (no (unknown) (unknown) AST 74 H (units (unkno wn) date) unknown) (unknown) (no (unknown) (unknown) AST 91 H (units (unkno wn) date) unknown) (unknown) (no (unknown) (unknown) AST (units (unkno wn) date) unknown) (unknown) (no (unknown) (unknown) Age/Sex: 66 / M (units (unknown) date) unknown) (unknown) (no (unknown) (unknown) Albumin 4.2 (units (un known) date) unknown) (unknown) (no (unknown) (unknown) Albumin 4.3 (units (un known) date) unknown) (unknown) (no (unknown) (unknown) Albumin (units (unkno wn) date) unknown) (unknown) (no (unknown) (unknown) Albumin/Globulin (units (unknown) date) Ratio 1.3 unknown) (unknown) (no (unknown) (unknown) Albumin/Globulin (units (unknown) date) Ratio 1.4 unknown) (unknown) (no (unknown) (unknown) Albumin/Globulin (units (unknown) date) Ratio unknown) (unknown) (no (unknown) (unknown) Alkaline (units (unkno wn) date) Phosphatase 129 H unknown) (unknown) (no (unknown) (unknown) Alkaline (units (unkno wn) date) Phosphatase 136 H unknown) (unknown) (no (unknown) (unknown) Alkaline (units (unkno wn) date) Phosphatase unknown) (unknown) (no (unknown) (unknown) Amorphous (units (unkn own) date) Sediment 1 unknown) (unknown) (no (unknown) (unknown) Amorphous (units (unkn own) date) Sediment unknown) (unknown) (no (unknown) (unknown) Assessment + (units (u nknown) date) Plan narrative: unknown) (unknown) (no (unknown) (unknown) Assessment + (units (u nknown) date) Plan unknown) (unknown) (no (unknown) (unknown) BUN 5 L (units (unkno wn) date) unknown) (unknown) (no (unknown) (unknown) BUN 8 L (units (unkno wn) date) unknown) (unknown) (no (unknown) (unknown) BUN (units (unkno wn) date) unknown) (unknown) (no (unknown) (unknown) BUN/Creatinine (units (unknown) date) Ratio 10.4 unknown) (unknown) (no (unknown) (unknown) BUN/Creatinine (units (unknown) date) Ratio 7.0 unknown) (unknown) (no (unknown) (unknown) BUN/Creatinine (units (unknown) date) Ratio unknown) (unknown) (no (unknown) (unknown) Baso # (Auto) 0 (units (unknown) date) unknown) (unknown) (no (unknown) (unknown) Baso # (Auto) (units ( unknown) date) unknown) (unknown) (no (unknown) (unknown) Baso % (Auto) (units ( unknown) date) 0.3 unknown) (unknown) (no (unknown) (unknown) Baso % (Auto) (units ( unknown) date) 0.8 unknown) (unknown) (no (unknown) (unknown) Baso % (Auto) (units ( unknown) date) unknown) (unknown) (no (unknown) (unknown) Blood Pressure (units (unknown) date) 128/78 158/88 H unknown) (unknown) (no (unknown) (unknown) CK-MB (CK-2) Rel (units (unknown) date) Index TNP unknown) (unknown) (no (unknown) (unknown) CK-MB (CK-2) Rel (units (unknown) date) Index unknown) (unknown) (no (unknown) (unknown) CK-MB (CK-2) TNP (units (unknown) date) unknown) (unknown) (no (unknown) (unknown) CK-MB (CK-2) (units (u nknown) date) unknown) (unknown) (no (unknown) (unknown) CODE: Full (units (unk nown) date) unknown) (unknown) (no (unknown) (unknown) CV: regular rate (units (unknown) date) and rhythm, no unknown) murmurs (unknown) (no (unknown) (unknown) Calcium 8.3 L (units ( unknown) date) unknown) (unknown) (no (unknown) (unknown) Calcium 8.9 (units (un known) date) unknown) (unknown) (no (unknown) (unknown) Calcium (units (unkno wn) date) unknown) (unknown) (no (unknown) (unknown) Carbon Dioxide (units (unknown) date) 17 L unknown) (unknown) (no (unknown) (unknown) Carbon Dioxide (units (unknown) date) 23 unknown) (unknown) (no (unknown) (unknown) Carbon Dioxide (units (unknown) date) unknown) (unknown) (no (unknown) (unknown) Chloride 101 (units (u nknown) date) unknown) (unknown) (no (unknown) (unknown) Chloride 105 (units (u nknown) date) unknown) (unknown) (no (unknown) (unknown) Chloride (units (unkno wn) date) unknown) (unknown) (no (unknown) (unknown) Conjugated (units (unk nown) date) Bilirubin 0.0 unknown) (unknown) (no (unknown) (unknown) Conjugated (units (unk nown) date) Bilirubin unknown) (unknown) (no (unknown) (unknown) Coronary artery (units (unknown) date) disease unknown) (unknown) (no (unknown) (unknown) Creatinine 0.71 (units (unknown) date) unknown) (unknown) (no (unknown) (unknown) Creatinine 0.77 (units (unknown) date) unknown) (unknown) (no (unknown) (unknown) Creatinine (units (unk nown) date) unknown) (unknown) (no (unknown) (unknown) Critical Care (units ( unknown) date) time: unknown) (unknown) (no (unknown) (unknown) D-Dimer 1528 H (units (unknown) date) unknown) (unknown) (no (unknown) (unknown) D-Dimer (units (unkno wn) date) unknown) (unknown) (no (unknown) (unknown) : 1955 (units (unknown) date) Acct:[id number] unknown) (unknown) (no (unknown) (unknown) Date of Service: (units (unknown) date) 03/28/22 unknown) (unknown) (no (unknown) (unknown) Diabetes type 2, (units (unknown) date) uncontrolled unknown) (unknown) (no (unknown) (unknown) EXT: warm and (units ( unknown) date) well perfused unknown) with no edema (unknown) (no (unknown) (unknown) Elevated blood (units (unknown) date) alcohol level unknown) (unknown) (no (unknown) (unknown) Eos # (Auto) 100 (units (unknown) date) unknown) (unknown) (no (unknown) (unknown) Eos # (Auto) (units (u nknown) date) unknown) (unknown) (no (unknown) (unknown) Eos % (Auto) 1.4 (units (unknown) date) L unknown) (unknown) (no (unknown) (unknown) Eos % (Auto) 2.0 (units (unknown) date) unknown) (unknown) (no (unknown) (unknown) Eos % (Auto) (units (u nknown) date) unknown) (unknown) (no (unknown) (unknown) Estimated GFR > (units (unknown) date) 60 unknown) (unknown) (no (unknown) (unknown) Estimated GFR (units ( unknown) date) unknown) (unknown) (no (unknown) (unknown) Ethyl Alcohol (units ( unknown) date) 225 H unknown) (unknown) (no (unknown) (unknown) Ethyl Alcohol (units ( unknown) date) unknown) (unknown) (no (unknown) (unknown) Exam Narrative: (units (unknown) date) unknown) (unknown) (no (unknown) (unknown) Exam (units (unkno wn) date) unknown) (unknown) (no (unknown) (unknown) Family History (units (unknown) date) (Reviewed unknown) 03/28/22 @ 21:52 by Umesh Akins MD) (unknown) (no (unknown) (unknown) Father (units (unknown) date) Lung cancer unknown) (unknown) (no (unknown) (unknown) GEN: appears in (units (unknown) date) pain unknown) (unknown) (no (unknown) (unknown) Globulin 3.0 (units (u nknown) date) unknown) (unknown) (no (unknown) (unknown) Globulin 3.3 (units (u nknown) date) unknown) (unknown) (no (unknown) (unknown) Globulin (units (unkno wn) date) unknown) (unknown) (no (unknown) (unknown) Glucose 320 H (units ( unknown) date) unknown) (unknown) (no (unknown) (unknown) Glucose 390 H (units ( unknown) date) unknown) (unknown) (no (unknown) (unknown) Glucose (units (unkno wn) date) unknown) (unknown) (no (unknown) (unknown) H/O heart artery (units (unknown) date) stent unknown) (unknown) (no (unknown) (unknown) HEENT: moist (units (u nknown) date) mucous membranes, unknown) PERRL (unknown) (no (unknown) (unknown) Hct 47.6 (units (unkno wn) date) unknown) (unknown) (no (unknown) (unknown) Hct 48.4 (units (unkno wn) date) unknown) (unknown) (no (unknown) (unknown) Hct (units (unkno wn) date) unknown) (unknown) (no (unknown) (unknown) Hgb 16.7 (units (unkno wn) date) unknown) (unknown) (no (unknown) (unknown) Hgb 16.8 (units (unkno wn) date) unknown) (unknown) (no (unknown) (unknown) Hgb (units (unkno wn) date) unknown) (unknown) (no (unknown) (unknown) I have utilized (units (unknown) date) all available unknown) resources to reconcile the patient's home (unknown) (no (unknown) (unknown) I spent a total (units (unknown) date) of [] minutes of unknown) critical care time on this patient's care (unknown) (no (unknown) (unknown) [facility] (units (unknown) date) [address] unknown) [place] [address] (unknown) (no (unknown) (unknown) Laboratory (units (unk nown) date) Results - last 24 unknown) hr (unknown) (no (unknown) (unknown) Labs (units (unkno wn) date) unknown) (unknown) (no (unknown) (unknown) Labs: (units (unkno wn) date) unknown) (unknown) (no (unknown) (unknown) Lipase 648 H (units (u nknown) date) unknown) (unknown) (no (unknown) (unknown) Lipase (units (unkno wn) date) unknown) (unknown) (no (unknown) (unknown) Lymph # (Auto) (units (unknown) date) 1600 unknown) (unknown) (no (unknown) (unknown) Lymph # (Auto) (units (unknown) date) 2200 unknown) (unknown) (no (unknown) (unknown) Lymph # (Auto) (units (unknown) date) unknown) (unknown) (no (unknown) (unknown) Lymph % (Auto) (units (unknown) date) 25.1 unknown) (unknown) (no (unknown) (unknown) Lymph % (Auto) (units (unknown) date) 34.0 unknown) (unknown) (no (unknown) (unknown) Lymph % (Auto) (units (unknown) date) unknown) (unknown) (no (unknown) (unknown) MCH 30.2 (units (unkno wn) date) unknown) (unknown) (no (unknown) (unknown) MCH 30.7 (units (unkno wn) date) unknown) (unknown) (no (unknown) (unknown) MCH (units (unkno wn) date) unknown) (unknown) (no (unknown) (unknown) MCHC 34.5 (units (unkn own) date) unknown) (unknown) (no (unknown) (unknown) MCHC 35.2 (units (unkn own) date) unknown) (unknown) (no (unknown) (unknown) MCHC (units (unkno wn) date) unknown) (unknown) (no (unknown) (unknown) MCV 87.2 (units (unkno wn) date) unknown) (unknown) (no (unknown) (unknown) MCV 87.7 (units (unkno wn) date) unknown) (unknown) (no (unknown) (unknown) MCV (units (unkno wn) date) unknown) (unknown) (no (unknown) (unknown) Magnesium 1.8 (units ( unknown) date) unknown) (unknown) (no (unknown) (unknown) Magnesium (units (unkn own) date) unknown) (unknown) (no (unknown) (unknown) Medical History (units (unknown) date) (Reviewed unknown) 03/28/22 @ 21:52 by Umesh Akins MD) (unknown) (no (unknown) (unknown) [place] # (Auto) (units ( unknown) date) 400 unknown) (unknown) (no (unknown) (unknown) [place] # (Auto) (units ( unknown) date) 600 unknown) (unknown) (no (unknown) (unknown) [place] # (Auto) (units ( unknown) date) unknown) (unknown) (no (unknown) (unknown) [place] % (Auto) (units ( unknown) date) 6.3 unknown) (unknown) (no (unknown) (unknown) [place] % (Auto) (units ( unknown) date) 9.4 unknown) (unknown) (no (unknown) (unknown) [place] % (Auto) (units ( unknown) date) unknown) (unknown) (no (unknown) (unknown) Mother Medical (units (unknown) date) history unknown unknown) (unknown) (no (unknown) (unknown) Mr. Chan is a (units (unknown) date) 66M with PMH CAD, unknown) DM who presents with chest pain, back pain, (unknown) (no (unknown) (unknown) NECK: trachea (units ( unknown) date) midline, no JVD unknown) (unknown) (no (unknown) (unknown) NEURO: awake, (units ( unknown) date) alert oriented, unknown) lower extremity numbness (unknown) (no (unknown) (unknown) Narrative (units (unkn own) date) unknown) (unknown) (no (unknown) (unknown) Neut # (Auto) (units ( unknown) date) 3700 unknown) (unknown) (no (unknown) (unknown) Neut # (Auto) (units ( unknown) date) 4200 unknown) (unknown) (no (unknown) (unknown) Neut # (Auto) (units ( unknown) date) unknown) (unknown) (no (unknown) (unknown) Neut % (Auto) (units ( unknown) date) 56.9 unknown) (unknown) (no (unknown) (unknown) Neut % (Auto) (units ( unknown) date) 63.8 unknown) (unknown) (no (unknown) (unknown) Neut % (Auto) (units ( unknown) date) unknown) (unknown) (no (unknown) (unknown) Objective (units (unkn own) date) unknown) (unknown) (no (unknown) (unknown) Oxygen Delivery (units (unknown) date) Method Room Air unknown) (unknown) (no (unknown) (unknown) Oxygen Flow Rate (units (unknown) date) 0 0 unknown) (unknown) (no (unknown) (unknown) Oxygen Flow Rate (units (unknown) date) 0 unknown) (unknown) (no (unknown) (unknown) PFSH (units (unkno wn) date) unknown) (unknown) (no (unknown) (unknown) PULM: clear (units (un known) date) bilaterally, no unknown) wheezes, rhonchi, rales (unknown) (no (unknown) (unknown) Patient: (units (unkno wn) date) Aquilino Chanvan MR#: unknown) [id number] (unknown) (no (unknown) (unknown) Plt Count 152 (units ( unknown) date) unknown) (unknown) (no (unknown) (unknown) Plt Count 154 (units ( unknown) date) unknown) (unknown) (no (unknown) (unknown) Plt Count (units (unkn own) date) unknown) (unknown) (no (unknown) (unknown) Potassium 4.4 (units ( unknown) date) unknown) (unknown) (no (unknown) (unknown) Potassium 5.4 H (units (unknown) date) unknown) (unknown) (no (unknown) (unknown) Potassium (units (unkn own) date) unknown) (unknown) (no (unknown) (unknown) Progress Note (units ( unknown) date) unknown) (unknown) (no (unknown) (unknown) Provider: (units (unkn own) date) Raul Butt unknown) D.O. (unknown) (no (unknown) (unknown) Proxy: Rica (units (un known) date) [place], unknown) family (unknown) (no (unknown) (unknown) Pulse Oximetry (units (unknown) date) 97 97 unknown) (unknown) (no (unknown) (unknown) Pulse Rate 89 (units ( unknown) date) 105 H unknown) (unknown) (no (unknown) (unknown) RBC 5.46 (units (unkno wn) date) unknown) (unknown) (no (unknown) (unknown) RBC 5.51 (units (unkno wn) date) unknown) (unknown) (no (unknown) (unknown) RBC (units (unkno wn) date) unknown) (unknown) (no (unknown) (unknown) RDW 13.9 (units (unkno wn) date) unknown) (unknown) (no (unknown) (unknown) RDW 14.1 (units (unkno wn) date) unknown) (unknown) (no (unknown) (unknown) RDW (units (unkno wn) date) unknown) (unknown) (no (unknown) (unknown) Respiratory Rate (units (unknown) date) 19 20 unknown) (unknown) (no (unknown) (unknown) Result Diagrams: (units (unknown) date) unknown) (unknown) (no (unknown) (unknown) SARS-CoV-2 (PCR) (units (unknown) date) Negative unknown) (unknown) (no (unknown) (unknown) SARS-CoV-2 (PCR) (units (unknown) date) unknown) (unknown) (no (unknown) (unknown) SKIN: petechia (units (unknown) date) in lower unknown) extremities (unknown) (no (unknown) (unknown) Signed By: (units (unk nown) date) unknown) (unknown) (no (unknown) (unknown) Smoking Status: (units (unknown) date) Current every day unknown) smoker (unknown) (no (unknown) (unknown) Social History (units (unknown) date) (Reviewed unknown) 03/29/22 @ 01:41 by Fausto Padgett DO) (unknown) (no (unknown) (unknown) Sodium 138 (units (unk nown) date) unknown) (unknown) (no (unknown) (unknown) Sodium (units (unkno wn) date) unknown) (unknown) (no (unknown) (unknown) Surgical History (units (unknown) date) (Reviewed unknown) 03/29/22 @ 01:41 by Fausto Padgett DO) (unknown) (no (unknown) (unknown) Temperature 97.8 (units (unknown) date) F 97.4 F L unknown) (unknown) (no (unknown) (unknown) Time Spent With (units (unknown) date) Patient unknown) (unknown) (no (unknown) (unknown) Total Bilirubin (units (unknown) date) 0.8 unknown) (unknown) (no (unknown) (unknown) Total Bilirubin (units (unknown) date) 1.1 unknown) (unknown) (no (unknown) (unknown) Total Bilirubin (units (unknown) date) unknown) (unknown) (no (unknown) (unknown) Total Creatine (units (unknown) date) Kinase 38 L unknown) (unknown) (no (unknown) (unknown) Total Creatine (units (unknown) date) Kinase unknown) (unknown) (no (unknown) (unknown) Total Protein (units ( unknown) date) 7.2 unknown) (unknown) (no (unknown) (unknown) Total Protein (units ( unknown) date) 7.6 unknown) (unknown) (no (unknown) (unknown) Total Protein (units ( unknown) date) unknown) (unknown) (no (unknown) (unknown) Troponin I < (units (u nknown) date) 0.012 unknown) (unknown) (no (unknown) (unknown) Troponin I (units (unk nown) date) unknown) (unknown) (no (unknown) (unknown) Unconjugated (units (u nknown) date) Bilirubin 0.5 unknown) (unknown) (no (unknown) (unknown) Unconjugated (units (u nknown) date) Bilirubin unknown) (unknown) (no (unknown) (unknown) Ur Culture (units (unk nown) date) Indicated? Cult unknown) not indicated (unknown) (no (unknown) (unknown) Ur Culture (units (unk nown) date) Indicated? unknown) (unknown) (no (unknown) (unknown) Ur Leukocyte (units (u nknown) date) Esterase Negative unknown) (unknown) (no (unknown) (unknown) Ur Leukocyte (units (u nknown) date) Esterase unknown) (unknown) (no (unknown) (unknown) Ur Specific (units (un known) date) [place] <=1.005 unknown) (unknown) (no (unknown) (unknown) Ur Specific (units (un known) date) [place] unknown) (unknown) (no (unknown) (unknown) Urine Appearance (units (unknown) date) Clear unknown) (unknown) (no (unknown) (unknown) Urine Appearance (units (unknown) date) unknown) (unknown) (no (unknown) (unknown) Urine Bacteria (units (unknown) date) None seen unknown) (unknown) (no (unknown) (unknown) Urine Bacteria (units (unknown) date) unknown) (unknown) (no (unknown) (unknown) Urine Bilirubin (units (unknown) date) Negative unknown) (unknown) (no (unknown) (unknown) Urine Bilirubin (units (unknown) date) unknown) (unknown) (no (unknown) (unknown) Urine Color (units (un known) date) Yellow unknown) (unknown) (no (unknown) (unknown) Urine Color (units (un known) date) unknown) (unknown) (no (unknown) (unknown) Urine Glucose (units ( unknown) date) (UA) 3+ H unknown) (unknown) (no (unknown) (unknown) Urine Glucose (units ( unknown) date) (UA) unknown) (unknown) (no (unknown) (unknown) Urine Ketones (units ( unknown) date) Negative unknown) (unknown) (no (unknown) (unknown) Urine Ketones (units ( unknown) date) unknown) (unknown) (no (unknown) (unknown) Urine Nitrate (units ( unknown) date) Negative unknown) (unknown) (no (unknown) (unknown) Urine Nitrate (units ( unknown) date) unknown) (unknown) (no (unknown) (unknown) Urine Occult (units (u nknown) date) Blood Negative unknown) (unknown) (no (unknown) (unknown) Urine Occult (units (u nknown) date) Blood unknown) (unknown) (no (unknown) (unknown) Urine Protein (units ( unknown) date) Negative unknown) (unknown) (no (unknown) (unknown) Urine Protein (units ( unknown) date) unknown) (unknown) (no (unknown) (unknown) Urine RBC (units (unkn own) date) 0-1/hpf unknown) (unknown) (no (unknown) (unknown) Urine RBC (units (unkn own) date) unknown) (unknown) (no (unknown) (unknown) Urine (units (unkno wn) date) Urobilinogen 0.2 unknown) (unknown) (no (unknown) (unknown) Urine (units (unkno wn) date) Urobilinogen unknown) (unknown) (no (unknown) (unknown) Urine WBC None (units (unknown) date) seen unknown) (unknown) (no (unknown) (unknown) Urine WBC (units (unkn own) date) unknown) (unknown) (no (unknown) (unknown) Urine pH 5.0 (units (u nknown) date) unknown) (unknown) (no (unknown) (unknown) Urine pH (units (unkno wn) date) unknown) (unknown) (no (unknown) (unknown) Vital Signs (units (un known) date) unknown) (unknown) (no (unknown) (unknown) WBC 6.5 (units (unkno wn) date) unknown) (unknown) (no (unknown) (unknown) WBC (units (unkno wn) date) unknown) (unknown) (no (unknown) (unknown) [Embedded Image (units (unknown) date) Not Available] unknown) (unknown) (no (unknown) (unknown) abdominal pain. (units (unknown) date) unknown) (unknown) (no (unknown) (unknown) alcohol intake: (units (unknown) date) former unknown) (unknown) (no (unknown) (unknown) bowel sounds (units (u nknown) date) unknown) (unknown) (no (unknown) (unknown) household (units (unkn own) date) members: unknown) significant other (unknown) (no (unknown) (unknown) incontinence (units (u nknown) date) unknown) (unknown) (no (unknown) (unknown) medications (units (un known) date) unknown) (unknown) (no (unknown) (unknown) today; this time (units (unknown) date) is exclusive of unknown) procedural time. Result panel 576 (unknown) (no (unknown) (unknown) (no value) (units (unk nown) date) unknown) (unknown) (no (unknown) (unknown) 03/29/22 (units (unkno wn) date) unknown) (unknown) (no (unknown) (unknown) [address] [place] [address] (units (unknown) date) unknown) (unknown) (no (unknown) (unknown) [address] (units (unkno wn) date) unknown) (unknown) (no (unknown) (unknown) Accession (units (unkn own) date) Number: unknown) [id number] (unknown) (no (unknown) (unknown) Age/Sex: 66 / M (units (unknown) date) Date of Service: unknown) (unknown) (no (unknown) (unknown) [place], [place] (units ( unknown) date) [address] unknown) (unknown) (no (unknown) (unknown) Approved by: (units (u nknown) date) callie Sweeney) Gina on 03/29/2022 at 9:51 (unknown) (no (unknown) (unknown) COMPARISON: (units (un known) date) [facility], unknown) CT, CT ABDOMEN PELVIS W CON, 03/28/2022, 23:01. (unknown) (no (unknown) (unknown) : 1955 (units (unknown) date) Acct:[id number] unknown) (unknown) (no (unknown) (unknown) Dictated by: (units (u nknown) date) callie Sweeney) Gina on 03/29/2022 at 9:45 (unknown) (no (unknown) (unknown) FINDINGS: (units (unkn own) date) unknown) (unknown) (no (unknown) (unknown) From T12-L1 (units (un known) date) through L3-L4, unknown) there is no spinal canal stenosis, neural foraminal (unknown) (no (unknown) (unknown) IMPRESSION: (units (un known) date) unknown) (unknown) (no (unknown) (unknown) INDICATIONS: (units (u nknown) date) BACK PAIN, unknown) URINARY RETENTION, LOWER LEG NUMBNESS (unknown) (no (unknown) (unknown) [facility] (units (unknown) date) unknown) (unknown) (no (unknown) (unknown) L4-L5: Diffuse (units (unknown) date) disc bulge and a unknown) superimposed broad-based posterior disc (unknown) (no (unknown) (unknown) L5-S1: Diffuse (units (unknown) date) disc bulge and a unknown) superimposed broad-based posterior disc (unknown) (no (unknown) (unknown) Loc: AC 204-1 (units ( unknown) date) unknown) (unknown) (no (unknown) (unknown) Magnetic (units (unkno wn) date) Resonance Report unknown) (unknown) (no (unknown) (unknown) Mild bilateral (units (unknown) date) neural foraminal unknown) stenosis. (unknown) (no (unknown) (unknown) No findings of (units (unknown) date) focal nerve root unknown) impingement, significant neural foraminal (unknown) (no (unknown) (unknown) Noncontrast (units (un known) date) sagittal T1 spin unknown) echo and T2 fast spin echo, sagittal STIR, axial (unknown) (no (unknown) (unknown) Nonspecific (units (un known) date) partially unknown) visualized bilateral perinephric fat stranding which (unknown) (no (unknown) (unknown) Normal lumbar (units ( unknown) date) vertebral body unknown) height and alignment. No suspicious focal marrow (unknown) (no (unknown) (unknown) Normal position (units (unknown) date) and appearance of unknown) the conus. Prevertebral and paraspinous soft (unknown) (no (unknown) (unknown) Ordering (units (unkno wn) date) Provider: unknown) Umesh Akins MD (unknown) (no (unknown) (unknown) PROCEDURE: MR (units ( unknown) date) LUMBAR SPINE WO/W unknown) CON (unknown) (no (unknown) (unknown) Patient: (units (unkno wn) date) Frank Chan MR#: unknown) [id number] (unknown) (no (unknown) (unknown) Procedure: MR (units ( unknown) date) lumbar spine wo/w unknown) con (unknown) (no (unknown) (unknown) S1 nerve roots (units (unknown) date) in the left unknown) subarticular zone. Foraminal components of the disc (unknown) (no (unknown) (unknown) Signed (units (unkno wn) date) unknown) (unknown) (no (unknown) (unknown) T1 and T2 (units (unkn own) date) unknown) (unknown) (no (unknown) (unknown) TECHNIQUE: (units (unk nown) date) unknown) (unknown) (no (unknown) (unknown) abnormality or (units (unknown) date) bone marrow unknown) edema. No abnormal enhancement in the vertebral (unknown) (no (unknown) (unknown) axial T1 spin (units ( unknown) date) echo with fat unknown) saturation through the lumbar spine. (unknown) (no (unknown) (unknown) bulge and (units (unkn own) date) unknown) (unknown) (no (unknown) (unknown) column. (units (unkno wn) date) unknown) (unknown) (no (unknown) (unknown) coronal T2 (units (unk nown) date) unknown) (unknown) (no (unknown) (unknown) corresponding (units ( unknown) date) enhancement. unknown) Correlate with other clinical evidence to exclude (unknown) (no (unknown) (unknown) demonstrate no (units (unknown) date) acute finding. unknown) Nonspecific partially visualized bilateral (unknown) (no (unknown) (unknown) demonstrates (units (u nknown) date) unknown) (unknown) (no (unknown) (unknown) descending left (units (unknown) date) unknown) (unknown) (no (unknown) (unknown) facet (units (unkno wn) date) hypertrophy unknown) combine to produce mild bilateral neural foraminal stenosis. (unknown) (no (unknown) (unknown) fast spin echo (units (unknown) date) may be performed. unknown) After the administration of contrast, (unknown) (no (unknown) (unknown) fast spin echo (units (unknown) date) through the unknown) lumbar spine. In cases with scoliosis, additional (unknown) (no (unknown) (unknown) flattens and (units (u nknown) date) indents the unknown) ventral thecal sac. Disc material displaces the (unknown) (no (unknown) (unknown) flattens the (units (u nknown) date) ventral thecal unknown) sac. No mass effect upon the traversing L5 nerve (unknown) (no (unknown) (unknown) narrowing, or (units ( unknown) date) unknown) (unknown) (no (unknown) (unknown) or significant (units (unknown) date) degenerative unknown) changes. (unknown) (no (unknown) (unknown) perinephric fat (units (unknown) date) unknown) (unknown) (no (unknown) (unknown) protrusion (units (unk nown) date) unknown) (unknown) (no (unknown) (unknown) pyelonephritis (units (unknown) date) or urinary tract unknown) obstruction. (unknown) (no (unknown) (unknown) roots. (units (unkno wn) date) unknown) (unknown) (no (unknown) (unknown) sagittal and (units (u nknown) date) unknown) (unknown) (no (unknown) (unknown) signal (units (unkno wn) date) unknown) (unknown) (no (unknown) (unknown) spinal canal (units (u nknown) date) stenosis. unknown) (unknown) (no (unknown) (unknown) stenosis, (units (unkn own) date) unknown) (unknown) (no (unknown) (unknown) stranding with (units (unknown) date) corresponding unknown) enhancement. (unknown) (no (unknown) (unknown) tissues (units (unkno wn) date) unknown) Result panel 577 (unknown) (no (unknown) (unknown) (no value) (units (unk nown) date) unknown) (unknown) (no (unknown) (unknown) (past 8 hours): (units (unknown) date) unknown) (unknown) (no (unknown) (unknown) -CT abdomen (units (un known) date) ordered unknown) (unknown) (no (unknown) (unknown) -CT (units (unkno wn) date) abdomen/pelviS unknown) without abnormality (unknown) (no (unknown) (unknown) -MRI back normal (units (unknown) date) unknown) (unknown) (no (unknown) (unknown) -MRI lumbar (units (un known) date) spine revealed no unknown) nerve impingement or stenosis (unknown) (no (unknown) (unknown) -PT eval cleared (units (unknown) date) for home unknown) (unknown) (no (unknown) (unknown) -a1c pending (units (u nknown) date) unknown) (unknown) (no (unknown) (unknown) -continue to (units (u nknown) date) trend troponins unknown) (unknown) (no (unknown) (unknown) -echo with EF (units ( unknown) date) 45-50% unknown) (unknown) (no (unknown) (unknown) -encourage (units (unk nown) date) cessation unknown) (unknown) (no (unknown) (unknown) -etiology likely (units (unknown) date) BPH unknown) (unknown) (no (unknown) (unknown) -etoh level (units (un known) date) elevated at 200 unknown) (unknown) (no (unknown) (unknown) -has denied in (units (unknown) date) past and had unknown) elevated etoh level (unknown) (no (unknown) (unknown) -initial glucose (units (unknown) date) >390 unknown) (unknown) (no (unknown) (unknown) -likely (units (unkno wn) date) secondary to unknown) diabetic neuropathy (unknown) (no (unknown) (unknown) -lipase only (units (u nknown) date) mildly elevated unknown) (unknown) (no (unknown) (unknown) -no recent (units (unk nown) date) cardiac workup unknown) (unknown) (no (unknown) (unknown) -now has lower (units (unknown) date) extremity unknown) numbness, weakness, urinary retention, and question of (unknown) (no (unknown) (unknown) -nuc stress test (units (unknown) date) showed old fixed unknown) infarct with nothing acute (unknown) (no (unknown) (unknown) -ordered (units (unkno wn) date) aspirin/statin unknown) (unknown) (no (unknown) (unknown) -ordered for (units (u nknown) date) pain meds unknown) (unknown) (no (unknown) (unknown) -patient denies (units (unknown) date) alcohol abuse unknown) (unknown) (no (unknown) (unknown) -patient has (units (u nknown) date) chronic back pain unknown) from previous injury (unknown) (no (unknown) (unknown) -patient has (units (u nknown) date) history of CAD unknown) s/p AK (unknown) (no (unknown) (unknown) -patient not (units (u nknown) date) taking any unknown) medications (unknown) (no (unknown) (unknown) -question if (units (u nknown) date) patient uses unknown) alcohol (unknown) (no (unknown) (unknown) -remove damon (units ( unknown) date) and do voiding unknown) trial (unknown) (no (unknown) (unknown) -ruled out (units (unk nown) date) spinal process unknown) with MRI (unknown) (no (unknown) (unknown) -start CIWA (units (un known) date) unknown) (unknown) (no (unknown) (unknown) -start flomax (units ( unknown) date) unknown) (unknown) (no (unknown) (unknown) -start insulin (units (unknown) date) sliding scale unknown) (unknown) (no (unknown) (unknown) -trend daily (units (u nknown) date) unknown) (unknown) (no (unknown) (unknown) -workup diabetes (units (unknown) date) as above unknown) (unknown) (no (unknown) (unknown) 01:14 03/29/22 (units (unknown) date) unknown) (unknown) (no (unknown) (unknown) 05:29 (units (unkno wn) date) unknown) (unknown) (no (unknown) (unknown) 05:40 05:40 (units (un known) date) 05:40 unknown) (unknown) (no (unknown) (unknown) 1. Chest pain (units ( unknown) date) unknown) (unknown) (no (unknown) (unknown) 10. (units (unkno wn) date) Transaminitis unknown) (unknown) (no (unknown) (unknown) 03/28/22 (units (unkno wn) date) 03/28/22 03/28/22 unknown) (unknown) (no (unknown) (unknown) 03/29/22 05:40 (units (unknown) date) unknown) (unknown) (no (unknown) (unknown) 03/29/22 (units (unkno wn) date) 03/29/22 03/29/22 unknown) (unknown) (no (unknown) (unknown) 03/29/22 (units (unkno wn) date) unknown) (unknown) (no (unknown) (unknown) 17:00 19:00 (units (un known) date) 19:00 unknown) (unknown) (no (unknown) (unknown) 19:00 19:00 (units (un known) date) 20:16 unknown) (unknown) (no (unknown) (unknown) 2847 (units (unkno wn) date) unknown) (unknown) (no (unknown) (unknown) 3. Type 2 (units (unkn own) date) Diabetes unknown) (unknown) (no (unknown) (unknown) 4. Back pain (units (u nknown) date) unknown) (unknown) (no (unknown) (unknown) 5. Lower (units (unkno wn) date) extremity unknown) numbness (unknown) (no (unknown) (unknown) 6. Urinary (units (unk nown) date) retention, acute unknown) (unknown) (no (unknown) (unknown) 7. Abdominal (units (u nknown) date) pain unknown) (unknown) (no (unknown) (unknown) 8. Active smoker (units (unknown) date) unknown) (unknown) (no (unknown) (unknown) 9. Possible (units (un known) date) alcohol abuse unknown) (unknown) (no (unknown) (unknown) ABD: soft, (units (unk nown) date) tender to unknown) palpation, no rebound/guarding, no organomegaly, normal (unknown) (no (unknown) (unknown) ALT 85 H (units (unkno wn) date) unknown) (unknown) (no (unknown) (unknown) ALT 90 H (units (unkno wn) date) unknown) (unknown) (no (unknown) (unknown) ALT (units (unkno wn) date) unknown) (unknown) (no (unknown) (unknown) AST 74 H (units (unkno wn) date) unknown) (unknown) (no (unknown) (unknown) AST 91 H (units (unkno wn) date) unknown) (unknown) (no (unknown) (unknown) AST (units (unkno wn) date) unknown) (unknown) (no (unknown) (unknown) Age/Sex: 66 / M (units (unknown) date) unknown) (unknown) (no (unknown) (unknown) Albumin 4.2 (units (un known) date) unknown) (unknown) (no (unknown) (unknown) Albumin 4.3 (units (un known) date) unknown) (unknown) (no (unknown) (unknown) Albumin (units (unkno wn) date) unknown) (unknown) (no (unknown) (unknown) Albumin/Globulin (units (unknown) date) Ratio 1.3 unknown) (unknown) (no (unknown) (unknown) Albumin/Globulin (units (unknown) date) Ratio 1.4 unknown) (unknown) (no (unknown) (unknown) Albumin/Globulin (units (unknown) date) Ratio unknown) (unknown) (no (unknown) (unknown) Alkaline (units (unkno wn) date) Phosphatase 129 H unknown) (unknown) (no (unknown) (unknown) Alkaline (units (unkno wn) date) Phosphatase 136 H unknown) (unknown) (no (unknown) (unknown) Alkaline (units (unkno wn) date) Phosphatase unknown) (unknown) (no (unknown) (unknown) Amorphous (units (unkn own) date) Sediment 1 unknown) (unknown) (no (unknown) (unknown) Amorphous (units (unkn own) date) Sediment unknown) (unknown) (no (unknown) (unknown) Assessment + (units (u nknown) date) Plan narrative: unknown) (unknown) (no (unknown) (unknown) Assessment + (units (u nknown) date) Plan unknown) (unknown) (no (unknown) (unknown) BUN 5 L (units (unkno wn) date) unknown) (unknown) (no (unknown) (unknown) BUN 8 L (units (unkno wn) date) unknown) (unknown) (no (unknown) (unknown) BUN (units (unkno wn) date) unknown) (unknown) (no (unknown) (unknown) BUN/Creatinine (units (unknown) date) Ratio 10.4 unknown) (unknown) (no (unknown) (unknown) BUN/Creatinine (units (unknown) date) Ratio 7.0 unknown) (unknown) (no (unknown) (unknown) BUN/Creatinine (units (unknown) date) Ratio unknown) (unknown) (no (unknown) (unknown) Baso # (Auto) 0 (units (unknown) date) unknown) (unknown) (no (unknown) (unknown) Baso # (Auto) (units ( unknown) date) unknown) (unknown) (no (unknown) (unknown) Baso % (Auto) (units ( unknown) date) 0.3 unknown) (unknown) (no (unknown) (unknown) Baso % (Auto) (units ( unknown) date) 0.8 unknown) (unknown) (no (unknown) (unknown) Baso % (Auto) (units ( unknown) date) unknown) (unknown) (no (unknown) (unknown) Blood Pressure (units (unknown) date) 128/78 158/88 H unknown) (unknown) (no (unknown) (unknown) CK-MB (CK-2) Rel (units (unknown) date) Index TNP unknown) (unknown) (no (unknown) (unknown) CK-MB (CK-2) Rel (units (unknown) date) Index unknown) (unknown) (no (unknown) (unknown) CK-MB (CK-2) TNP (units (unknown) date) unknown) (unknown) (no (unknown) (unknown) CK-MB (CK-2) (units (u nknown) date) unknown) (unknown) (no (unknown) (unknown) CODE: Full (units (unk nown) date) unknown) (unknown) (no (unknown) (unknown) CV: regular rate (units (unknown) date) and rhythm, no unknown) murmurs (unknown) (no (unknown) (unknown) Calcium 8.3 L (units ( unknown) date) unknown) (unknown) (no (unknown) (unknown) Calcium 8.9 (units (un known) date) unknown) (unknown) (no (unknown) (unknown) Calcium (units (unkno wn) date) unknown) (unknown) (no (unknown) (unknown) Carbon Dioxide (units (unknown) date) 17 L unknown) (unknown) (no (unknown) (unknown) Carbon Dioxide (units (unknown) date) 23 unknown) (unknown) (no (unknown) (unknown) Carbon Dioxide (units (unknown) date) unknown) (unknown) (no (unknown) (unknown) Chloride 101 (units (u nknown) date) unknown) (unknown) (no (unknown) (unknown) Chloride 105 (units (u nknown) date) unknown) (unknown) (no (unknown) (unknown) Chloride (units (unkno wn) date) unknown) (unknown) (no (unknown) (unknown) Conjugated (units (unk nown) date) Bilirubin 0.0 unknown) (unknown) (no (unknown) (unknown) Conjugated (units (unk nown) date) Bilirubin unknown) (unknown) (no (unknown) (unknown) Coronary artery (units (unknown) date) disease unknown) (unknown) (no (unknown) (unknown) Creatinine 0.71 (units (unknown) date) unknown) (unknown) (no (unknown) (unknown) Creatinine 0.77 (units (unknown) date) unknown) (unknown) (no (unknown) (unknown) Creatinine (units (unk nown) date) unknown) (unknown) (no (unknown) (unknown) Critical Care (units ( unknown) date) time: unknown) (unknown) (no (unknown) (unknown) D-Dimer 1528 H (units (unknown) date) unknown) (unknown) (no (unknown) (unknown) D-Dimer (units (unkno wn) date) unknown) (unknown) (no (unknown) (unknown) : 1955 (units (unknown) date) Acct:[id number] unknown) (unknown) (no (unknown) (unknown) Date Patient (units (u nknown) date) Seen: 03/29/22 unknown) (unknown) (no (unknown) (unknown) Date of Service: (units (unknown) date) 03/28/22 unknown) (unknown) (no (unknown) (unknown) Diabetes type 2, (units (unknown) date) uncontrolled unknown) (unknown) (no (unknown) (unknown) EXT: warm and (units ( unknown) date) well perfused unknown) with no edema (unknown) (no (unknown) (unknown) Elevated blood (units (unknown) date) alcohol level unknown) (unknown) (no (unknown) (unknown) Eos # (Auto) 100 (units (unknown) date) unknown) (unknown) (no (unknown) (unknown) Eos # (Auto) (units (u nknown) date) unknown) (unknown) (no (unknown) (unknown) Eos % (Auto) 1.4 (units (unknown) date) L unknown) (unknown) (no (unknown) (unknown) Eos % (Auto) 2.0 (units (unknown) date) unknown) (unknown) (no (unknown) (unknown) Eos % (Auto) (units (u nknown) date) unknown) (unknown) (no (unknown) (unknown) Estimated GFR > (units (unknown) date) 60 unknown) (unknown) (no (unknown) (unknown) Estimated GFR (units ( unknown) date) unknown) (unknown) (no (unknown) (unknown) Ethyl Alcohol (units ( unknown) date) 225 H unknown) (unknown) (no (unknown) (unknown) Ethyl Alcohol (units ( unknown) date) unknown) (unknown) (no (unknown) (unknown) Exam Narrative: (units (unknown) date) unknown) (unknown) (no (unknown) (unknown) Exam (units (unkno wn) date) unknown) (unknown) (no (unknown) (unknown) Family History (units (unknown) date) (Reviewed unknown) 03/28/22 @ 21:52 by Umesh Akins MD) (unknown) (no (unknown) (unknown) Father (units (unknown) date) Lung cancer unknown) (unknown) (no (unknown) (unknown) GEN: comfortable (units (unknown) date) unknown) (unknown) (no (unknown) (unknown) Globulin 3.0 (units (u nknown) date) unknown) (unknown) (no (unknown) (unknown) Globulin 3.3 (units (u nknown) date) unknown) (unknown) (no (unknown) (unknown) Globulin (units (unkno wn) date) unknown) (unknown) (no (unknown) (unknown) Glucose 320 H (units ( unknown) date) unknown) (unknown) (no (unknown) (unknown) Glucose 390 H (units ( unknown) date) unknown) (unknown) (no (unknown) (unknown) Glucose (units (unkno wn) date) unknown) (unknown) (no (unknown) (unknown) H/O heart artery (units (unknown) date) stent unknown) (unknown) (no (unknown) (unknown) HEENT: moist (units (u nknown) date) mucous membranes, unknown) PERRL (unknown) (no (unknown) (unknown) Hct 47.6 (units (unkno wn) date) unknown) (unknown) (no (unknown) (unknown) Hct 48.4 (units (unkno wn) date) unknown) (unknown) (no (unknown) (unknown) Hct (units (unkno wn) date) unknown) (unknown) (no (unknown) (unknown) Hgb 16.7 (units (unkno wn) date) unknown) (unknown) (no (unknown) (unknown) Hgb 16.8 (units (unkno wn) date) unknown) (unknown) (no (unknown) (unknown) Hgb (units (unkno wn) date) unknown) (unknown) (no (unknown) (unknown) I have utilized (units (unknown) date) all available unknown) resources to reconcile the patient's home (unknown) (no (unknown) (unknown) I spent a total (units (unknown) date) of [] minutes of unknown) critical care time on this patient's care (unknown) (no (unknown) (unknown) Interval (units (unkno wn) date) history: unknown) (unknown) (no (unknown) (unknown) [facility] (units (unknown) date) [address] unknown) [place] [address] (unknown) (no (unknown) (unknown) LE's (units (unkno wn) date) unknown) (unknown) (no (unknown) (unknown) Laboratory (units (unk nown) date) Results - last 24 unknown) hr (unknown) (no (unknown) (unknown) Labs (units (unkno wn) date) unknown) (unknown) (no (unknown) (unknown) Labs: (units (unkno wn) date) unknown) (unknown) (no (unknown) (unknown) Lipase 648 H (units (u nknown) date) unknown) (unknown) (no (unknown) (unknown) Lipase (units (unkno wn) date) unknown) (unknown) (no (unknown) (unknown) Lymph # (Auto) (units (unknown) date) 1600 unknown) (unknown) (no (unknown) (unknown) Lymph # (Auto) (units (unknown) date) 2200 unknown) (unknown) (no (unknown) (unknown) Lymph # (Auto) (units (unknown) date) unknown) (unknown) (no (unknown) (unknown) Lymph % (Auto) (units (unknown) date) 25.1 unknown) (unknown) (no (unknown) (unknown) Lymph % (Auto) (units (unknown) date) 34.0 unknown) (unknown) (no (unknown) (unknown) Lymph % (Auto) (units (unknown) date) unknown) (unknown) (no (unknown) (unknown) MCH 30.2 (units (unkno wn) date) unknown) (unknown) (no (unknown) (unknown) MCH 30.7 (units (unkno wn) date) unknown) (unknown) (no (unknown) (unknown) MCH (units (unkno wn) date) unknown) (unknown) (no (unknown) (unknown) MCHC 34.5 (units (unkn own) date) unknown) (unknown) (no (unknown) (unknown) MCHC 35.2 (units (unkn own) date) unknown) (unknown) (no (unknown) (unknown) MCHC (units (unkno wn) date) unknown) (unknown) (no (unknown) (unknown) MCV 87.2 (units (unkno wn) date) unknown) (unknown) (no (unknown) (unknown) MCV 87.7 (units (unkno wn) date) unknown) (unknown) (no (unknown) (unknown) MCV (units (unkno wn) date) unknown) (unknown) (no (unknown) (unknown) Magnesium 1.8 (units ( unknown) date) unknown) (unknown) (no (unknown) (unknown) Magnesium (units (unkn own) date) unknown) (unknown) (no (unknown) (unknown) Medical History (units (unknown) date) (Reviewed unknown) 03/28/22 @ 21:52 by Umesh Akins MD) (unknown) (no (unknown) (unknown) [place] # (Auto) (units ( unknown) date) 400 unknown) (unknown) (no (unknown) (unknown) [place] # (Auto) (units ( unknown) date) 600 unknown) (unknown) (no (unknown) (unknown) [place] # (Auto) (units ( unknown) date) unknown) (unknown) (no (unknown) (unknown) [place] % (Auto) (units ( unknown) date) 6.3 unknown) (unknown) (no (unknown) (unknown) [place] % (Auto) (units ( unknown) date) 9.4 unknown) (unknown) (no (unknown) (unknown) [place] % (Auto) (units ( unknown) date) unknown) (unknown) (no (unknown) (unknown) [facility] (units (unknown) date) history unknown unknown) (unknown) (no (unknown) (unknown) Mr. Chan is a (units (unknown) date) 66M with PMH CAD, unknown) DM who presents with chest pain, back pain, (unknown) (no (unknown) (unknown) NECK: trachea (units ( unknown) date) midline, no JVD unknown) (unknown) (no (unknown) (unknown) NEURO: awake, (units ( unknown) date) alert oriented, unknown) lower extremity numbness present, strength 4/5 in (unknown) (no (unknown) (unknown) Narrative (units (unkn own) date) unknown) (unknown) (no (unknown) (unknown) Neut # (Auto) (units ( unknown) date) 3700 unknown) (unknown) (no (unknown) (unknown) Neut # (Auto) (units ( unknown) date) 4200 unknown) (unknown) (no (unknown) (unknown) Neut # (Auto) (units ( unknown) date) unknown) (unknown) (no (unknown) (unknown) Neut % (Auto) (units ( unknown) date) 56.9 unknown) (unknown) (no (unknown) (unknown) Neut % (Auto) (units ( unknown) date) 63.8 unknown) (unknown) (no (unknown) (unknown) Neut % (Auto) (units ( unknown) date) unknown) (unknown) (no (unknown) (unknown) Objective (units (unkn own) date) unknown) (unknown) (no (unknown) (unknown) Oxygen Delivery (units (unknown) date) Method Room Air unknown) (unknown) (no (unknown) (unknown) Oxygen Flow Rate (units (unknown) date) 0 0 unknown) (unknown) (no (unknown) (unknown) Oxygen Flow Rate (units (unknown) date) 0 unknown) (unknown) (no (unknown) (unknown) PFSH (units (unkno wn) date) unknown) (unknown) (no (unknown) (unknown) PULM: clear (units (un known) date) bilaterally, no unknown) wheezes, rhonchi, rales (unknown) (no (unknown) (unknown) Patient notes (units ( unknown) date) increased low unknown) back pain and weakness in his legs. Says he has no (unknown) (no (unknown) (unknown) Patient: (units (unkno wn) date) Frank Chan MR#: unknown) [id number] (unknown) (no (unknown) (unknown) Plt Count 152 (units ( unknown) date) unknown) (unknown) (no (unknown) (unknown) Plt Count 154 (units ( unknown) date) unknown) (unknown) (no (unknown) (unknown) Plt Count (units (unkn own) date) unknown) (unknown) (no (unknown) (unknown) Potassium 4.4 (units ( unknown) date) unknown) (unknown) (no (unknown) (unknown) Potassium 5.4 H (units (unknown) date) unknown) (unknown) (no (unknown) (unknown) Potassium (units (unkn own) date) unknown) (unknown) (no (unknown) (unknown) Progress Note (units ( unknown) date) unknown) (unknown) (no (unknown) (unknown) Provider: (units (unkn own) date) Raul Butt unknown) D.OAdrian (unknown) (no (unknown) (unknown) Proxy: Rica (units (un known) date) Krzysztof, unknown) family (unknown) (no (unknown) (unknown) Pulse Oximetry (units (unknown) date) 97 97 unknown) (unknown) (no (unknown) (unknown) Pulse Rate 89 (units ( unknown) date) 105 H unknown) (unknown) (no (unknown) (unknown) RBC 5.46 (units (unkno wn) date) unknown) (unknown) (no (unknown) (unknown) RBC 5.51 (units (unkno wn) date) unknown) (unknown) (no (unknown) (unknown) RBC (units (unkno wn) date) unknown) (unknown) (no (unknown) (unknown) RDW 13.9 (units (unkno wn) date) unknown) (unknown) (no (unknown) (unknown) RDW 14.1 (units (unkno wn) date) unknown) (unknown) (no (unknown) (unknown) RDW (units (unkno wn) date) unknown) (unknown) (no (unknown) (unknown) Respiratory Rate (units (unknown) date) 19 20 unknown) (unknown) (no (unknown) (unknown) Result Diagrams: (units (unknown) date) unknown) (unknown) (no (unknown) (unknown) SARS-CoV-2 (PCR) (units (unknown) date) Negative unknown) (unknown) (no (unknown) (unknown) SARS-CoV-2 (PCR) (units (unknown) date) unknown) (unknown) (no (unknown) (unknown) SKIN: petechia (units (unknown) date) in lower unknown) extremities (unknown) (no (unknown) (unknown) Signed By: (units (unk nown) date) unknown) (unknown) (no (unknown) (unknown) Smoking Status: (units (unknown) date) Current every day unknown) smoker (unknown) (no (unknown) (unknown) Social History (units (unknown) date) (Reviewed unknown) 03/29/22 @ 01:41 by Fausto Padgett DO) (unknown) (no (unknown) (unknown) Sodium 138 (units (unk nown) date) unknown) (unknown) (no (unknown) (unknown) Sodium (units (unkno wn) date) unknown) (unknown) (no (unknown) (unknown) Subjective (units (unk nown) date) unknown) (unknown) (no (unknown) (unknown) Surgical History (units (unknown) date) (Reviewed unknown) 03/29/22 @ 01:41 by Fausto Padgett DO) (unknown) (no (unknown) (unknown) Temperature 97.8 (units (unknown) date) F 97.4 F L unknown) (unknown) (no (unknown) (unknown) Time Patient (units (u nknown) date) Seen: 09:00 unknown) (unknown) (no (unknown) (unknown) Time Spent With (units (unknown) date) Patient unknown) (unknown) (no (unknown) (unknown) Total Bilirubin (units (unknown) date) 0.8 unknown) (unknown) (no (unknown) (unknown) Total Bilirubin (units (unknown) date) 1.1 unknown) (unknown) (no (unknown) (unknown) Total Bilirubin (units (unknown) date) unknown) (unknown) (no (unknown) (unknown) Total Creatine (units (unknown) date) Kinase 38 L unknown) (unknown) (no (unknown) (unknown) Total Creatine (units (unknown) date) Kinase unknown) (unknown) (no (unknown) (unknown) Total Protein (units ( unknown) date) 7.2 unknown) (unknown) (no (unknown) (unknown) Total Protein (units ( unknown) date) 7.6 unknown) (unknown) (no (unknown) (unknown) Total Protein (units ( unknown) date) unknown) (unknown) (no (unknown) (unknown) Troponin I < (units (u nknown) date) 0.012 unknown) (unknown) (no (unknown) (unknown) Troponin I (units (unk nown) date) unknown) (unknown) (no (unknown) (unknown) Unconjugated (units (u nknown) date) Bilirubin 0.5 unknown) (unknown) (no (unknown) (unknown) Unconjugated (units (u nknown) date) Bilirubin unknown) (unknown) (no (unknown) (unknown) Ur Culture (units (unk nown) date) Indicated? Cult unknown) not indicated (unknown) (no (unknown) (unknown) Ur Culture (units (unk nown) date) Indicated? unknown) (unknown) (no (unknown) (unknown) Ur Leukocyte (units (u nknown) date) Esterase Negative unknown) (unknown) (no (unknown) (unknown) Ur Leukocyte (units (u nknown) date) Esterase unknown) (unknown) (no (unknown) (unknown) Ur Specific (units (un known) date) [place] <=1.005 unknown) (unknown) (no (unknown) (unknown) Ur Specific (units (un known) date) [place] unknown) (unknown) (no (unknown) (unknown) Urine Appearance (units (unknown) date) Clear unknown) (unknown) (no (unknown) (unknown) Urine Appearance (units (unknown) date) unknown) (unknown) (no (unknown) (unknown) Urine Bacteria (units (unknown) date) None seen unknown) (unknown) (no (unknown) (unknown) Urine Bacteria (units (unknown) date) unknown) (unknown) (no (unknown) (unknown) Urine Bilirubin (units (unknown) date) Negative unknown) (unknown) (no (unknown) (unknown) Urine Bilirubin (units (unknown) date) unknown) (unknown) (no (unknown) (unknown) Urine Color (units (un known) date) Yellow unknown) (unknown) (no (unknown) (unknown) Urine Color (units (un known) date) unknown) (unknown) (no (unknown) (unknown) Urine Glucose (units ( unknown) date) (UA) 3+ H unknown) (unknown) (no (unknown) (unknown) Urine Glucose (units ( unknown) date) (UA) unknown) (unknown) (no (unknown) (unknown) Urine Ketones (units ( unknown) date) Negative unknown) (unknown) (no (unknown) (unknown) Urine Ketones (units ( unknown) date) unknown) (unknown) (no (unknown) (unknown) Urine Nitrate (units ( unknown) date) Negative unknown) (unknown) (no (unknown) (unknown) Urine Nitrate (units ( unknown) date) unknown) (unknown) (no (unknown) (unknown) Urine Occult (units (u nknown) date) Blood Negative unknown) (unknown) (no (unknown) (unknown) Urine Occult (units (u nknown) date) Blood unknown) (unknown) (no (unknown) (unknown) Urine Protein (units ( unknown) date) Negative unknown) (unknown) (no (unknown) (unknown) Urine Protein (units ( unknown) date) unknown) (unknown) (no (unknown) (unknown) Urine RBC (units (unkn own) date) 0-1/hpf unknown) (unknown) (no (unknown) (unknown) Urine RBC (units (unkn own) date) unknown) (unknown) (no (unknown) (unknown) Urine (units (unkno wn) date) Urobilinogen 0.2 unknown) (unknown) (no (unknown) (unknown) Urine (units (unkno wn) date) Urobilinogen unknown) (unknown) (no (unknown) (unknown) Urine WBC None (units (unknown) date) seen unknown) (unknown) (no (unknown) (unknown) Urine WBC (units (unkn own) date) unknown) (unknown) (no (unknown) (unknown) Urine pH 5.0 (units (u nknown) date) unknown) (unknown) (no (unknown) (unknown) Urine pH (units (unkno wn) date) unknown) (unknown) (no (unknown) (unknown) Vital Signs (units (un known) date) unknown) (unknown) (no (unknown) (unknown) WBC 6.5 (units (unkno wn) date) unknown) (unknown) (no (unknown) (unknown) WBC (units (unkno wn) date) unknown) (unknown) (no (unknown) (unknown) [Embedded Image (units (unknown) date) Not Available] unknown) (unknown) (no (unknown) (unknown) abdominal pain. (units (unknown) date) unknown) (unknown) (no (unknown) (unknown) alcohol intake: (units (unknown) date) former unknown) (unknown) (no (unknown) (unknown) bowel sounds (units (u nknown) date) unknown) (unknown) (no (unknown) (unknown) household (units (unkn own) date) members: unknown) significant other (unknown) (no (unknown) (unknown) incontinence (units (u nknown) date) unknown) (unknown) (no (unknown) (unknown) medications (units (un known) date) unknown) (unknown) (no (unknown) (unknown) today; this time (units (unknown) date) is exclusive of unknown) procedural time. (unknown) (no (unknown) (unknown) trouble peeing (units (unknown) date) usually and unknown) didn't know he was retaining urine despite almost 1L (unknown) (no (unknown) (unknown) urine being (units (un known) date) present when unknown) damon cath placed. Result panel [id number] (unknown) (no (unknown) (unknown) (no value) (units (unk nown) date) unknown) (unknown) (no (unknown) (unknown) (past 8 hours): (units (unknown) date) unknown) (unknown) (no (unknown) (unknown) -CT abd with (units (u nknown) date) [place] of liver unknown) (unknown) (no (unknown) (unknown) -CT (units (unkno wn) date) abdomen/pelviS unknown) without abnormality (unknown) (no (unknown) (unknown) -MRI back normal (units (unknown) date) unknown) (unknown) (no (unknown) (unknown) -MRI lumbar (units (un known) date) spine revealed no unknown) nerve impingement or stenosis (unknown) (no (unknown) (unknown) -PT eval cleared (units (unknown) date) for home unknown) (unknown) (no (unknown) (unknown) -a1c pending (units (u nknown) date) unknown) (unknown) (no (unknown) (unknown) -check hepatitis (units (unknown) date) panel unknown) (unknown) (no (unknown) (unknown) -continue to (units (u nknown) date) trend troponins unknown) (unknown) (no (unknown) (unknown) -echo with EF (units ( unknown) date) 45-50% unknown) (unknown) (no (unknown) (unknown) -encourage (units (unk nown) date) cessation unknown) (unknown) (no (unknown) (unknown) -etiology likely (units (unknown) date) BPH unknown) (unknown) (no (unknown) (unknown) -etoh level (units (un known) date) elevated at 200 unknown) (unknown) (no (unknown) (unknown) -has denied in (units (unknown) date) past and had unknown) elevated etoh level (unknown) (no (unknown) (unknown) -initial glucose (units (unknown) date) >390 unknown) (unknown) (no (unknown) (unknown) -likely (units (unkno wn) date) secondary to unknown) diabetic neuropathy (unknown) (no (unknown) (unknown) -lipase only (units (u nknown) date) mildly elevated unknown) (unknown) (no (unknown) (unknown) -no recent (units (unk nown) date) cardiac workup unknown) (unknown) (no (unknown) (unknown) -now has lower (units (unknown) date) extremity unknown) numbness, weakness, urinary retention, and question of (unknown) (no (unknown) (unknown) -nuc stress test (units (unknown) date) showed old fixed unknown) infarct with nothing acute (unknown) (no (unknown) (unknown) -ordered (units (unkno wn) date) aspirin/statin unknown) (unknown) (no (unknown) (unknown) -ordered for (units (u nknown) date) pain meds unknown) (unknown) (no (unknown) (unknown) -patient denies (units (unknown) date) alcohol abuse unknown) (unknown) (no (unknown) (unknown) -patient has (units (u nknown) date) chronic back pain unknown) from previous injury (unknown) (no (unknown) (unknown) -patient has (units (u nknown) date) history of CAD unknown) s/p AK (unknown) (no (unknown) (unknown) -patient not (units (u nknown) date) taking any unknown) medications (unknown) (no (unknown) (unknown) -question if (units (u nknown) date) patient uses unknown) alcohol (unknown) (no (unknown) (unknown) -remove damon (units ( unknown) date) and do voiding unknown) trial (unknown) (no (unknown) (unknown) -ruled out (units (unk nown) date) spinal process unknown) with MRI (unknown) (no (unknown) (unknown) -start CIWA (units (un known) date) unknown) (unknown) (no (unknown) (unknown) -start flomax (units ( unknown) date) unknown) (unknown) (no (unknown) (unknown) -start insulin (units (unknown) date) sliding scale unknown) (unknown) (no (unknown) (unknown) -trend daily (units (u nknown) date) unknown) (unknown) (no (unknown) (unknown) -workup diabetes (units (unknown) date) as above unknown) (unknown) (no (unknown) (unknown) 01:14 03/29/22 (units (unknown) date) unknown) (unknown) (no (unknown) (unknown) 05:29 (units (unkno wn) date) unknown) (unknown) (no (unknown) (unknown) 05:40 05:40 (units (un known) date) 05:40 unknown) (unknown) (no (unknown) (unknown) 1. Chest pain (units ( unknown) date) unknown) (unknown) (no (unknown) (unknown) 10. (units (unkno wn) date) Transaminitis unknown) (unknown) (no (unknown) (unknown) 03/28/22 (units (unkno wn) date) 03/28/22 03/28/22 unknown) (unknown) (no (unknown) (unknown) 03/29/22 05:40 (units (unknown) date) unknown) (unknown) (no (unknown) (unknown) 03/29/22 (units (unkno wn) date) 03/29/22 03/29/22 unknown) (unknown) (no (unknown) (unknown) 03/29/22 1758 (units ( unknown) date) unknown) (unknown) (no (unknown) (unknown) 03/29/22 (units (unkno wn) date) unknown) (unknown) (no (unknown) (unknown) 17:00 19:00 (units (un known) date) 19:00 unknown) (unknown) (no (unknown) (unknown) 19:00 19:00 (units (un known) date) 20:16 unknown) (unknown) (no (unknown) (unknown) 2847 (units (unkno wn) date) unknown) (unknown) (no (unknown) (unknown) 3. Type 2 (units (unkn own) date) Diabetes unknown) (unknown) (no (unknown) (unknown) 4. Back pain (units (u nknown) date) unknown) (unknown) (no (unknown) (unknown) 5. Lower (units (unkno wn) date) extremity unknown) numbness (unknown) (no (unknown) (unknown) 6. Urinary (units (unk nown) date) retention, acute unknown) (unknown) (no (unknown) (unknown) 7. Abdominal (units (u nknown) date) pain unknown) (unknown) (no (unknown) (unknown) 8. Active smoker (units (unknown) date) unknown) (unknown) (no (unknown) (unknown) 9. Possible (units (un known) date) alcohol abuse unknown) (unknown) (no (unknown) (unknown) ABD: soft, (units (unk nown) date) tender to unknown) palpation, no rebound/guarding, no organomegaly, normal (unknown) (no (unknown) (unknown) ALT 85 H (units (unkno wn) date) unknown) (unknown) (no (unknown) (unknown) ALT 90 H (units (unkno wn) date) unknown) (unknown) (no (unknown) (unknown) ALT (units (unkno wn) date) unknown) (unknown) (no (unknown) (unknown) AST 74 H (units (unkno wn) date) unknown) (unknown) (no (unknown) (unknown) AST 91 H (units (unkno wn) date) unknown) (unknown) (no (unknown) (unknown) AST (units (unkno wn) date) unknown) (unknown) (no (unknown) (unknown) Age/Sex: 66 / M (units (unknown) date) unknown) (unknown) (no (unknown) (unknown) Albumin 4.2 (units (un known) date) unknown) (unknown) (no (unknown) (unknown) Albumin 4.3 (units (un known) date) unknown) (unknown) (no (unknown) (unknown) Albumin (units (unkno wn) date) unknown) (unknown) (no (unknown) (unknown) Albumin/Globulin (units (unknown) date) Ratio 1.3 unknown) (unknown) (no (unknown) (unknown) Albumin/Globulin (units (unknown) date) Ratio 1.4 unknown) (unknown) (no (unknown) (unknown) Albumin/Globulin (units (unknown) date) Ratio unknown) (unknown) (no (unknown) (unknown) Alkaline (units (unkno wn) date) Phosphatase 129 H unknown) (unknown) (no (unknown) (unknown) Alkaline (units (unkno wn) date) Phosphatase 136 H unknown) (unknown) (no (unknown) (unknown) Alkaline (units (unkno wn) date) Phosphatase unknown) (unknown) (no (unknown) (unknown) Amorphous (units (unkn own) date) Sediment 1 unknown) (unknown) (no (unknown) (unknown) Amorphous (units (unkn own) date) Sediment unknown) (unknown) (no (unknown) (unknown) Assessment + (units (u nknown) date) Plan narrative: unknown) (unknown) (no (unknown) (unknown) Assessment + (units (u nknown) date) Plan unknown) (unknown) (no (unknown) (unknown) BUN 5 L (units (unkno wn) date) unknown) (unknown) (no (unknown) (unknown) BUN 8 L (units (unkno wn) date) unknown) (unknown) (no (unknown) (unknown) BUN (units (unkno wn) date) unknown) (unknown) (no (unknown) (unknown) BUN/Creatinine (units (unknown) date) Ratio 10.4 unknown) (unknown) (no (unknown) (unknown) BUN/Creatinine (units (unknown) date) Ratio 7.0 unknown) (unknown) (no (unknown) (unknown) BUN/Creatinine (units (unknown) date) Ratio unknown) (unknown) (no (unknown) (unknown) Baso # (Auto) 0 (units (unknown) date) unknown) (unknown) (no (unknown) (unknown) Baso # (Auto) (units ( unknown) date) unknown) (unknown) (no (unknown) (unknown) Baso % (Auto) (units ( unknown) date) 0.3 unknown) (unknown) (no (unknown) (unknown) Baso % (Auto) (units ( unknown) date) 0.8 unknown) (unknown) (no (unknown) (unknown) Baso % (Auto) (units ( unknown) date) unknown) (unknown) (no (unknown) (unknown) Blood Pressure (units (unknown) date) 128/78 158/88 H unknown) (unknown) (no (unknown) (unknown) CK-MB (CK-2) Rel (units (unknown) date) Index TNP unknown) (unknown) (no (unknown) (unknown) CK-MB (CK-2) Rel (units (unknown) date) Index unknown) (unknown) (no (unknown) (unknown) CK-MB (CK-2) TNP (units (unknown) date) unknown) (unknown) (no (unknown) (unknown) CK-MB (CK-2) (units (u nknown) date) unknown) (unknown) (no (unknown) (unknown) CODE: Full (units (unk nown) date) unknown) (unknown) (no (unknown) (unknown) CV: regular rate (units (unknown) date) and rhythm, no unknown) murmurs (unknown) (no (unknown) (unknown) Calcium 8.3 L (units ( unknown) date) unknown) (unknown) (no (unknown) (unknown) Calcium 8.9 (units (un known) date) unknown) (unknown) (no (unknown) (unknown) Calcium (units (unkno wn) date) unknown) (unknown) (no (unknown) (unknown) Carbon Dioxide (units (unknown) date) 17 L unknown) (unknown) (no (unknown) (unknown) Carbon Dioxide (units (unknown) date) 23 unknown) (unknown) (no (unknown) (unknown) Carbon Dioxide (units (unknown) date) unknown) (unknown) (no (unknown) (unknown) Chloride 101 (units (u nknown) date) unknown) (unknown) (no (unknown) (unknown) Chloride 105 (units (u nknown) date) unknown) (unknown) (no (unknown) (unknown) Chloride (units (unkno wn) date) unknown) (unknown) (no (unknown) (unknown) Conjugated (units (unk nown) date) Bilirubin 0.0 unknown) (unknown) (no (unknown) (unknown) Conjugated (units (unk nown) date) Bilirubin unknown) (unknown) (no (unknown) (unknown) Coronary artery (units (unknown) date) disease unknown) (unknown) (no (unknown) (unknown) Creatinine 0.71 (units (unknown) date) unknown) (unknown) (no (unknown) (unknown) Creatinine 0.77 (units (unknown) date) unknown) (unknown) (no (unknown) (unknown) Creatinine (units (unk nown) date) unknown) (unknown) (no (unknown) (unknown) Critical Care (units ( unknown) date) time: unknown) (unknown) (no (unknown) (unknown) D-Dimer 1528 H (units (unknown) date) unknown) (unknown) (no (unknown) (unknown) D-Dimer (units (unkno wn) date) unknown) (unknown) (no (unknown) (unknown) : 1955 (units (unknown) date) Acct:[id number] unknown) (unknown) (no (unknown) (unknown) Date Patient (units (u nknown) date) Seen: 03/29/22 unknown) (unknown) (no (unknown) (unknown) Date of Service: (units (unknown) date) 03/28/22 unknown) (unknown) (no (unknown) (unknown) Diabetes type 2, (units (unknown) date) uncontrolled unknown) (unknown) (no (unknown) (unknown) Dispo: Home (units (un known) date) 03/30. unknown) (unknown) (no (unknown) (unknown) EXT: warm and (units ( unknown) date) well perfused unknown) with no edema (unknown) (no (unknown) (unknown) Elevated blood (units (unknown) date) alcohol level unknown) (unknown) (no (unknown) (unknown) Eos # (Auto) 100 (units (unknown) date) unknown) (unknown) (no (unknown) (unknown) Eos # (Auto) (units (u nknown) date) unknown) (unknown) (no (unknown) (unknown) Eos % (Auto) 1.4 (units (unknown) date) L unknown) (unknown) (no (unknown) (unknown) Eos % (Auto) 2.0 (units (unknown) date) unknown) (unknown) (no (unknown) (unknown) Eos % (Auto) (units (u nknown) date) unknown) (unknown) (no (unknown) (unknown) Estimated GFR > (units (unknown) date) 60 unknown) (unknown) (no (unknown) (unknown) Estimated GFR (units ( unknown) date) unknown) (unknown) (no (unknown) (unknown) Ethyl Alcohol (units ( unknown) date) 225 H unknown) (unknown) (no (unknown) (unknown) Ethyl Alcohol (units ( unknown) date) unknown) (unknown) (no (unknown) (unknown) Exam Narrative: (units (unknown) date) unknown) (unknown) (no (unknown) (unknown) Exam (units (unkno wn) date) unknown) (unknown) (no (unknown) (unknown) Family History (units (unknown) date) (Reviewed unknown) 03/28/22 @ 21:52 by Umesh Akins MD) (unknown) (no (unknown) (unknown) Father (units (unknown) date) Lung cancer unknown) (unknown) (no (unknown) (unknown) GEN: comfortable (units (unknown) date) unknown) (unknown) (no (unknown) (unknown) Globulin 3.0 (units (u nknown) date) unknown) (unknown) (no (unknown) (unknown) Globulin 3.3 (units (u nknown) date) unknown) (unknown) (no (unknown) (unknown) Globulin (units (unkno wn) date) unknown) (unknown) (no (unknown) (unknown) Glucose 320 H (units ( unknown) date) unknown) (unknown) (no (unknown) (unknown) Glucose 390 H (units ( unknown) date) unknown) (unknown) (no (unknown) (unknown) Glucose (units (unkno wn) date) unknown) (unknown) (no (unknown) (unknown) H/O heart artery (units (unknown) date) stent unknown) (unknown) (no (unknown) (unknown) HEENT: moist (units (u nknown) date) mucous membranes, unknown) PERRL (unknown) (no (unknown) (unknown) Hct 47.6 (units (unkno wn) date) unknown) (unknown) (no (unknown) (unknown) Hct 48.4 (units (unkno wn) date) unknown) (unknown) (no (unknown) (unknown) Hct (units (unkno wn) date) unknown) (unknown) (no (unknown) (unknown) Hgb 16.7 (units (unkno wn) date) unknown) (unknown) (no (unknown) (unknown) Hgb 16.8 (units (unkno wn) date) unknown) (unknown) (no (unknown) (unknown) Hgb (units (unkno wn) date) unknown) (unknown) (no (unknown) (unknown) I have utilized (units (unknown) date) all available unknown) resources to reconcile the patient's home (unknown) (no (unknown) (unknown) I spent a total (units (unknown) date) of [] minutes of unknown) critical care time on this patient's care (unknown) (no (unknown) (unknown) Interval (units (unkno wn) date) history: unknown) (unknown) (no (unknown) (unknown) [facility] (units (unknown) date) [address] unknown) [place] [address] (unknown) (no (unknown) (unknown) LE's (units (unkno wn) date) unknown) (unknown) (no (unknown) (unknown) Laboratory (units (unk nown) date) Results - last 24 unknown) hr (unknown) (no (unknown) (unknown) Labs (units (unkno wn) date) unknown) (unknown) (no (unknown) (unknown) Labs: (units (unkno wn) date) unknown) (unknown) (no (unknown) (unknown) Lipase 648 H (units (u nknown) date) unknown) (unknown) (no (unknown) (unknown) Lipase (units (unkno wn) date) unknown) (unknown) (no (unknown) (unknown) Lymph # (Auto) (units (unknown) date) 1600 unknown) (unknown) (no (unknown) (unknown) Lymph # (Auto) (units (unknown) date) 2200 unknown) (unknown) (no (unknown) (unknown) Lymph # (Auto) (units (unknown) date) unknown) (unknown) (no (unknown) (unknown) Lymph % (Auto) (units (unknown) date) 25.1 unknown) (unknown) (no (unknown) (unknown) Lymph % (Auto) (units (unknown) date) 34.0 unknown) (unknown) (no (unknown) (unknown) Lymph % (Auto) (units (unknown) date) unknown) (unknown) (no (unknown) (unknown) MCH 30.2 (units (unkno wn) date) unknown) (unknown) (no (unknown) (unknown) MCH 30.7 (units (unkno wn) date) unknown) (unknown) (no (unknown) (unknown) MCH (units (unkno wn) date) unknown) (unknown) (no (unknown) (unknown) MCHC 34.5 (units (unkn own) date) unknown) (unknown) (no (unknown) (unknown) MCHC 35.2 (units (unkn own) date) unknown) (unknown) (no (unknown) (unknown) MCHC (units (unkno wn) date) unknown) (unknown) (no (unknown) (unknown) MCV 87.2 (units (unkno wn) date) unknown) (unknown) (no (unknown) (unknown) MCV 87.7 (units (unkno wn) date) unknown) (unknown) (no (unknown) (unknown) MCV (units (unkno wn) date) unknown) (unknown) (no (unknown) (unknown) Magnesium 1.8 (units ( unknown) date) unknown) (unknown) (no (unknown) (unknown) Magnesium (units (unkn own) date) unknown) (unknown) (no (unknown) (unknown) Medical History (units (unknown) date) (Reviewed unknown) 03/28/22 @ 21:52 by Umesh Akins MD) (unknown) (no (unknown) (unknown) [place] # (Auto) (units ( unknown) date) 400 unknown) (unknown) (no (unknown) (unknown) [place] # (Auto) (units ( unknown) date) 600 unknown) (unknown) (no (unknown) (unknown) [place] # (Auto) (units ( unknown) date) unknown) (unknown) (no (unknown) (unknown) [place] % (Auto) (units ( unknown) date) 6.3 unknown) (unknown) (no (unknown) (unknown) [place] % (Auto) (units ( unknown) date) 9.4 unknown) (unknown) (no (unknown) (unknown) [place] % (Auto) (units ( unknown) date) unknown) (unknown) (no (unknown) (unknown) Mother Medical (units (unknown) date) history unknown unknown) (unknown) (no (unknown) (unknown) Mr. Chan is a (units (unknown) date) 66M with PMH CAD, unknown) DM who presents with chest pain, back pain, (unknown) (no (unknown) (unknown) NECK: trachea (units ( unknown) date) midline, no JVD unknown) (unknown) (no (unknown) (unknown) NEURO: awake, (units ( unknown) date) alert oriented, unknown) lower extremity numbness present, strength 4/5 in (unknown) (no (unknown) (unknown) Narrative (units (unkn own) date) unknown) (unknown) (no (unknown) (unknown) Neut # (Auto) (units ( unknown) date) 3700 unknown) (unknown) (no (unknown) (unknown) Neut # (Auto) (units ( unknown) date) 4200 unknown) (unknown) (no (unknown) (unknown) Neut # (Auto) (units ( unknown) date) unknown) (unknown) (no (unknown) (unknown) Neut % (Auto) (units ( unknown) date) 56.9 unknown) (unknown) (no (unknown) (unknown) Neut % (Auto) (units ( unknown) date) 63.8 unknown) (unknown) (no (unknown) (unknown) Neut % (Auto) (units ( unknown) date) unknown) (unknown) (no (unknown) (unknown) Objective (units (unkn own) date) unknown) (unknown) (no (unknown) (unknown) Oxygen Delivery (units (unknown) date) Method Room Air unknown) (unknown) (no (unknown) (unknown) Oxygen Flow Rate (units (unknown) date) 0 0 unknown) (unknown) (no (unknown) (unknown) Oxygen Flow Rate (units (unknown) date) 0 unknown) (unknown) (no (unknown) (unknown) PFSH (units (unkno wn) date) unknown) (unknown) (no (unknown) (unknown) PULM: clear (units (un known) date) bilaterally, no unknown) wheezes, rhonchi, rales (unknown) (no (unknown) (unknown) Patient notes (units ( unknown) date) increased low unknown) back pain and weakness in his legs. Says he has no (unknown) (no (unknown) (unknown) Patient: (units (unkno wn) date) [facility] MR#: unknown) [id number] (unknown) (no (unknown) (unknown) Plt Count 152 (units ( unknown) date) unknown) (unknown) (no (unknown) (unknown) Plt Count 154 (units ( unknown) date) unknown) (unknown) (no (unknown) (unknown) Plt Count (units (unkn own) date) unknown) (unknown) (no (unknown) (unknown) Potassium 4.4 (units ( unknown) date) unknown) (unknown) (no (unknown) (unknown) Potassium 5.4 H (units (unknown) date) unknown) (unknown) (no (unknown) (unknown) Potassium (units (unkn own) date) unknown) (unknown) (no (unknown) (unknown) Progress Note (units ( unknown) date) unknown) (unknown) (no (unknown) (unknown) Provider: (units (unkn own) date) Raul Butt unknown) D.O. (unknown) (no (unknown) (unknown) Proxy: [place] (units (un known) date) [place], unknown) family (unknown) (no (unknown) (unknown) Pulse Oximetry (units (unknown) date) 97 97 unknown) (unknown) (no (unknown) (unknown) Pulse Rate 89 (units ( unknown) date) 105 H unknown) (unknown) (no (unknown) (unknown) RBC 5.46 (units (unkno wn) date) unknown) (unknown) (no (unknown) (unknown) RBC 5.51 (units (unkno wn) date) unknown) (unknown) (no (unknown) (unknown) RBC (units (unkno wn) date) unknown) (unknown) (no (unknown) (unknown) RDW 13.9 (units (unkno wn) date) unknown) (unknown) (no (unknown) (unknown) RDW 14.1 (units (unkno wn) date) unknown) (unknown) (no (unknown) (unknown) RDW (units (unkno wn) date) unknown) (unknown) (no (unknown) (unknown) Respiratory Rate (units (unknown) date) 19 20 unknown) (unknown) (no (unknown) (unknown) Result Diagrams: (units (unknown) date) unknown) (unknown) (no (unknown) (unknown) SARS-CoV-2 (PCR) (units (unknown) date) Negative unknown) (unknown) (no (unknown) (unknown) SARS-CoV-2 (PCR) (units (unknown) date) unknown) (unknown) (no (unknown) (unknown) SKIN: petechia (units (unknown) date) in lower unknown) extremities (unknown) (no (unknown) (unknown) Signed (units (unkno wn) date) By:<Electronicall unknown) y signed by Raul Butt, D.OAdrian> (unknown) (no (unknown) (unknown) Smoking Status: (units (unknown) date) Current every day unknown) smoker (unknown) (no (unknown) (unknown) Social History (units (unknown) date) (Reviewed unknown) 03/29/22 @ 01:41 by Fausto Padgett DO) (unknown) (no (unknown) (unknown) Sodium 138 (units (unk nown) date) unknown) (unknown) (no (unknown) (unknown) Sodium (units (unkno wn) date) unknown) (unknown) (no (unknown) (unknown) Subjective (units (unk nown) date) unknown) (unknown) (no (unknown) (unknown) Surgical History (units (unknown) date) (Reviewed unknown) 03/29/22 @ 01:41 by Fausto Padgett DO) (unknown) (no (unknown) (unknown) Temperature 97.8 (units (unknown) date) F 97.4 F L unknown) (unknown) (no (unknown) (unknown) Time Patient (units (u nknown) date) Seen: 09:00 unknown) (unknown) (no (unknown) (unknown) Time Spent With (units (unknown) date) Patient unknown) (unknown) (no (unknown) (unknown) Total Bilirubin (units (unknown) date) 0.8 unknown) (unknown) (no (unknown) (unknown) Total Bilirubin (units (unknown) date) 1.1 unknown) (unknown) (no (unknown) (unknown) Total Bilirubin (units (unknown) date) unknown) (unknown) (no (unknown) (unknown) Total Creatine (units (unknown) date) Kinase 38 L unknown) (unknown) (no (unknown) (unknown) Total Creatine (units (unknown) date) Kinase unknown) (unknown) (no (unknown) (unknown) Total Protein (units ( unknown) date) 7.2 unknown) (unknown) (no (unknown) (unknown) Total Protein (units ( unknown) date) 7.6 unknown) (unknown) (no (unknown) (unknown) Total Protein (units ( unknown) date) unknown) (unknown) (no (unknown) (unknown) Troponin I < (units (u nknown) date) 0.012 unknown) (unknown) (no (unknown) (unknown) Troponin I (units (unk nown) date) unknown) (unknown) (no (unknown) (unknown) Unconjugated (units (u nknown) date) Bilirubin 0.5 unknown) (unknown) (no (unknown) (unknown) Unconjugated (units (u nknown) date) Bilirubin unknown) (unknown) (no (unknown) (unknown) Ur Culture (units (unk nown) date) Indicated? Cult unknown) not indicated (unknown) (no (unknown) (unknown) Ur Culture (units (unk nown) date) Indicated? unknown) (unknown) (no (unknown) (unknown) Ur Leukocyte (units (u nknown) date) Esterase Negative unknown) (unknown) (no (unknown) (unknown) Ur Leukocyte (units (u nknown) date) Esterase unknown) (unknown) (no (unknown) (unknown) Ur Specific (units (un known) date) [place] <=1.005 unknown) (unknown) (no (unknown) (unknown) Ur Specific (units (un known) date) [place] unknown) (unknown) (no (unknown) (unknown) Urine Appearance (units (unknown) date) Clear unknown) (unknown) (no (unknown) (unknown) Urine Appearance (units (unknown) date) unknown) (unknown) (no (unknown) (unknown) Urine Bacteria (units (unknown) date) None seen unknown) (unknown) (no (unknown) (unknown) Urine Bacteria (units (unknown) date) unknown) (unknown) (no (unknown) (unknown) Urine Bilirubin (units (unknown) date) Negative unknown) (unknown) (no (unknown) (unknown) Urine Bilirubin (units (unknown) date) unknown) (unknown) (no (unknown) (unknown) Urine Color (units (un known) date) Yellow unknown) (unknown) (no (unknown) (unknown) Urine Color (units (un known) date) unknown) (unknown) (no (unknown) (unknown) Urine Glucose (units ( unknown) date) (UA) 3+ H unknown) (unknown) (no (unknown) (unknown) Urine Glucose (units ( unknown) date) (UA) unknown) (unknown) (no (unknown) (unknown) Urine Ketones (units ( unknown) date) Negative unknown) (unknown) (no (unknown) (unknown) Urine Ketones (units ( unknown) date) unknown) (unknown) (no (unknown) (unknown) Urine Nitrate (units ( unknown) date) Negative unknown) (unknown) (no (unknown) (unknown) Urine Nitrate (units ( unknown) date) unknown) (unknown) (no (unknown) (unknown) Urine Occult (units (u nknown) date) Blood Negative unknown) (unknown) (no (unknown) (unknown) Urine Occult (units (u nknown) date) Blood unknown) (unknown) (no (unknown) (unknown) Urine Protein (units ( unknown) date) Negative unknown) (unknown) (no (unknown) (unknown) Urine Protein (units ( unknown) date) unknown) (unknown) (no (unknown) (unknown) Urine RBC (units (unkn own) date) 0-1/hpf unknown) (unknown) (no (unknown) (unknown) Urine RBC (units (unkn own) date) unknown) (unknown) (no (unknown) (unknown) Urine (units (unkno wn) date) Urobilinogen 0.2 unknown) (unknown) (no (unknown) (unknown) Urine (units (unkno wn) date) Urobilinogen unknown) (unknown) (no (unknown) (unknown) Urine WBC None (units (unknown) date) seen unknown) (unknown) (no (unknown) (unknown) Urine WBC (units (unkn own) date) unknown) (unknown) (no (unknown) (unknown) Urine pH 5.0 (units (u nknown) date) unknown) (unknown) (no (unknown) (unknown) Urine pH (units (unkno wn) date) unknown) (unknown) (no (unknown) (unknown) Vital Signs (units (un known) date) unknown) (unknown) (no (unknown) (unknown) WBC 6.5 (units (unkno wn) date) unknown) (unknown) (no (unknown) (unknown) WBC (units (unkno wn) date) unknown) (unknown) (no (unknown) (unknown) [Embedded Image (units (unknown) date) Not Available] unknown) (unknown) (no (unknown) (unknown) abdominal pain. (units (unknown) date) unknown) (unknown) (no (unknown) (unknown) alcohol intake: (units (unknown) date) former unknown) (unknown) (no (unknown) (unknown) bowel sounds (units (u nknown) date) unknown) (unknown) (no (unknown) (unknown) household (units (unkn own) date) members: unknown) significant other (unknown) (no (unknown) (unknown) incontinence (units (u nknown) date) unknown) (unknown) (no (unknown) (unknown) medications (units (un known) date) unknown) (unknown) (no (unknown) (unknown) today; this time (units (unknown) date) is exclusive of unknown) procedural time. (unknown) (no (unknown) (unknown) trouble peeing (units (unknown) date) usually and unknown) didn't know he was retaining urine despite almost 1L (unknown) (no (unknown) (unknown) urine being (units (un known) date) present when unknown) damon cath placed. Result panel 579 (unknown) (no date) (unknown) (unknown) 8.1 % (unkn own) (unknown) (no date) (unknown) (unknown) 8.1 % (unkn own) Result panel 580 (unknown) (no date) (unknown) (unknown) (no value) (units 139 55-0 unknown) (unknown) (no date) (unknown) (unknown) (no value) (units (un known) unknown) (unknown) (no date) (unknown) (unknown) <0.1 s/co ratio (un known) (unknown) (no date) (unknown) (unknown) <0.1 s/co ratio 481 59-8 (unknown) (no date) (unknown) (unknown) Negative (units (unkn own) unknown) (unknown) (no date) (unknown) (unknown) Negative (units 69326 -1 unknown) (unknown) (no date) (unknown) (unknown) Negative (units 25226 -3 unknown) (unknown) (no date) (unknown) (unknown) Negative (units 5196- 1 unknown) Result panel 581 (unknown) (no date) (unknown) (unknown) > 60 ml/min (unkn own) (unknown) (no date) (unknown) (unknown) > 60 ml/min (unkn own) (unknown) (no date) (unknown) (unknown) 0.54 mg/dl (unkn own) (unknown) (no date) (unknown) (unknown) 1.0 mg/dl (unkn own) (unknown) (no date) (unknown) (unknown) 1.5 (units unknown) (unknown) (unknown) (no date) (unknown) (unknown) 1.8 mg/dl (unkn own) (unknown) (no date) (unknown) (unknown) 12 mg/dl (unkn own) (unknown) (no date) (unknown) (unknown) 125 u/l (unkn own) (unknown) (no date) (unknown) (unknown) 132 mmol/l (unkn own) (unknown) (no date) (unknown) (unknown) 2.5 g/dl (unkn own) (unknown) (no date) (unknown) (unknown) 22.2 (units unknown) (unknown) (unknown) (no date) (unknown) (unknown) 26 mmol/l (unkn own) (unknown) (no date) (unknown) (unknown) 264 mg/dl (unkn own) (unknown) (no date) (unknown) (unknown) 264 mg/dl (unkn own) (unknown) (no date) (unknown) (unknown) 3.8 g/dl (unkn own) (unknown) (no date) (unknown) (unknown) 4.0 mmol/l (unkn own) (unknown) (no date) (unknown) (unknown) 59 iu/l (unkn own) (unknown) (no date) (unknown) (unknown) 6.3 g/dl (unkn own) (unknown) (no date) (unknown) (unknown) 73 iu/l (unkn own) (unknown) (no date) (unknown) (unknown) 8.5 mg/dl (unkn own) (unknown) (no date) (unknown) (unknown) 97 mmol/l (unkn own) Result panel 582 (unknown) (no date) (unknown) (unknown) > 60 ml/min (unkn own) (unknown) (no date) (unknown) (unknown) > 60 ml/min (unkn own) (unknown) (no date) (unknown) (unknown) 0.54 mg/dl (unkn own) (unknown) (no date) (unknown) (unknown) 1.0 mg/dl (unkn own) (unknown) (no date) (unknown) (unknown) 1.5 (units unknown) (unknown) (unknown) (no date) (unknown) (unknown) 1.8 mg/dl (unkn own) (unknown) (no date) (unknown) (unknown) 12 mg/dl (unkn own) (unknown) (no date) (unknown) (unknown) 125 u/l (unkn own) (unknown) (no date) (unknown) (unknown) 132 mmol/l (unkn own) (unknown) (no date) (unknown) (unknown) 2.5 g/dl (unkn own) (unknown) (no date) (unknown) (unknown) 22.2 (units unknown) (unknown) (unknown) (no date) (unknown) (unknown) 26 mmol/l (unkn own) (unknown) (no date) (unknown) (unknown) 264 mg/dl (unkn own) (unknown) (no date) (unknown) (unknown) 264 mg/dl (unkn own) (unknown) (no date) (unknown) (unknown) 3.8 g/dl (unkn own) (unknown) (no date) (unknown) (unknown) 4.0 mmol/l (unkn own) (unknown) (no date) (unknown) (unknown) 59 iu/l (unkn own) (unknown) (no date) (unknown) (unknown) 6.3 g/dl (unkn own) (unknown) (no date) (unknown) (unknown) 73 iu/l (unkn own) (unknown) (no date) (unknown) (unknown) 8.5 mg/dl (unkn own) (unknown) (no date) (unknown) (unknown) 97 mmol/l (unkn own) Result panel 583 (unknown) (no date) (unknown) (unknown) 3.18 uiu/ml (unkn own) Result panel 584 (unknown) (no (unknown) (unknown) (no value) (units (unk nown) date) unknown) (unknown) (no (unknown) (unknown) (past 8 hours): (units (unknown) date) unknown) (unknown) (no (unknown) (unknown) -CT abd with (units (u nknown) date) [place] of liver unknown) (unknown) (no (unknown) (unknown) -CT (units (unkno wn) date) abdomen/pelviS unknown) without abnormality (unknown) (no (unknown) (unknown) -MRI back normal (units (unknown) date) unknown) (unknown) (no (unknown) (unknown) -MRI lumbar (units (un known) date) spine revealed no unknown) nerve impingement or stenosis (unknown) (no (unknown) (unknown) -PT eval cleared (units (unknown) date) for home unknown) (unknown) (no (unknown) (unknown) -a1c 8.1% (units (unkn own) date) unknown) (unknown) (no (unknown) (unknown) -able to urinate (units (unknown) date) after removing unknown) damon (unknown) (no (unknown) (unknown) -continue to (units (u nknown) date) trend troponins unknown) (unknown) (no (unknown) (unknown) -discharged on (units (unknown) date) metformin unknown) (unknown) (no (unknown) (unknown) -discharged on (units (unknown) date) metoprolol, unknown) lipitor, aspirin, and losartan (unknown) (no (unknown) (unknown) -echo with EF (units ( unknown) date) 45-50% but no unknown) focal WMA's (unknown) (no (unknown) (unknown) -encourage (units (unk nown) date) cessation unknown) (unknown) (no (unknown) (unknown) -etiology likely (units (unknown) date) BPH unknown) (unknown) (no (unknown) (unknown) -etoh level (units (un known) date) elevated at 200 unknown) (unknown) (no (unknown) (unknown) -given insulin (units (unknown) date) sliding scale unknown) (unknown) (no (unknown) (unknown) -has denied in (units (unknown) date) past and had unknown) elevated etoh level (unknown) (no (unknown) (unknown) -hepatitis panel (units (unknown) date) pending unknown) (unknown) (no (unknown) (unknown) -initial glucose (units (unknown) date) >390 unknown) (unknown) (no (unknown) (unknown) -likely (units (unkno wn) date) secondary to unknown) diabetic neuropathy (unknown) (no (unknown) (unknown) -lipase only (units (u nknown) date) mildly elevated unknown) (unknown) (no (unknown) (unknown) -no recent (units (unk nown) date) cardiac workup unknown) (unknown) (no (unknown) (unknown) -now has lower (units (unknown) date) extremity unknown) numbness, weakness, urinary retention, and question of (unknown) (no (unknown) (unknown) -nuc stress test (units (unknown) date) showed old fixed unknown) infarct with nothing acute (unknown) (no (unknown) (unknown) -ordered (units (unkno wn) date) aspirin/statin unknown) (unknown) (no (unknown) (unknown) -ordered for (units (u nknown) date) pain meds unknown) (unknown) (no (unknown) (unknown) -patient denies (units (unknown) date) alcohol abuse unknown) (unknown) (no (unknown) (unknown) -patient has (units (u nknown) date) chronic back pain unknown) from previous injury (unknown) (no (unknown) (unknown) -patient has (units (u nknown) date) history of CAD unknown) s/p AK (unknown) (no (unknown) (unknown) -patient not (units (u nknown) date) taking any unknown) medications (unknown) (no (unknown) (unknown) -question if (units (u nknown) date) patient uses unknown) alcohol (unknown) (no (unknown) (unknown) -ruled out (units (unk nown) date) spinal process unknown) with MRI (unknown) (no (unknown) (unknown) -start CIWA (units (un known) date) unknown) (unknown) (no (unknown) (unknown) -start flomax (units ( unknown) date) unknown) (unknown) (no (unknown) (unknown) -trend daily (units (u nknown) date) unknown) (unknown) (no (unknown) (unknown) -workup diabetes (units (unknown) date) as above unknown) (unknown) (no (unknown) (unknown) 0.4 mg PO (units (unkn own) date) BEDTIME Qty: 90 unknown) 0RF (unknown) (no (unknown) (unknown) 05:40 05:00 (units (un known) date) 05:00 unknown) (unknown) (no (unknown) (unknown) 06:10 03/30/22 (units (unknown) date) unknown) (unknown) (no (unknown) (unknown) 07:26 03/30/22 (units (unknown) date) unknown) (unknown) (no (unknown) (unknown) 08:00 (units (unkno wn) date) unknown) (unknown) (no (unknown) (unknown) 1. Chest pain (units ( unknown) date) unknown) (unknown) (no (unknown) (unknown) 10. (units (unkno wn) date) Transaminitis unknown) (unknown) (no (unknown) (unknown) 03/28/22 20:16 (units (unknown) date) unknown) (unknown) (no (unknown) (unknown) 03/28/22 21:24 (units (unknown) date) unknown) (unknown) (no (unknown) (unknown) 03/29/22 05:40 (units (unknown) date) unknown) (unknown) (no (unknown) (unknown) 03/29/22 07:52 (units (unknown) date) unknown) (unknown) (no (unknown) (unknown) 03/29/22 (units (unkno wn) date) 03/30/22 03/30/22 unknown) (unknown) (no (unknown) (unknown) 03/30/22 05:00 (units (unknown) date) unknown) (unknown) (no (unknown) (unknown) 03/30/22 1206 (units ( unknown) date) unknown) (unknown) (no (unknown) (unknown) 03/30/22 (units (unkno wn) date) unknown) (unknown) (no (unknown) (unknown) 134 mg PO DAILY (units (unknown) date) unknown) (unknown) (no (unknown) (unknown) 220 mg PO BID (units ( unknown) date) unknown) (unknown) (no (unknown) (unknown) 25 mg PO DAILY (units (unknown) date) Qty: 90 0RF unknown) (unknown) (no (unknown) (unknown) 2847 (units (unkno wn) date) unknown) (unknown) (no (unknown) (unknown) 3. Type 2 (units (unkn own) date) Diabetes unknown) (unknown) (no (unknown) (unknown) 4. Back pain (units (u nknown) date) unknown) (unknown) (no (unknown) (unknown) 40 mg PO BID (units (u nknown) date) Qty: 0 0RF unknown) (unknown) (no (unknown) (unknown) 40 mg PO DAILY (units (unknown) date) Qty: 90 0RF unknown) (unknown) (no (unknown) (unknown) 5 MG PO Q8HR As (units (unknown) date) Needed for Pain unknown) (unknown) (no (unknown) (unknown) 5 mg PO Q8HR PRN (units (unknown) date) (Reason: Pain.) unknown) Qty: 20 0RF (unknown) (no (unknown) (unknown) 5. Lower (units (unkno wn) date) extremity unknown) numbness (unknown) (no (unknown) (unknown) 500 mg PO BID (units ( unknown) date) Qty: 180 0RF unknown) (unknown) (no (unknown) (unknown) 6. Urinary (units (unk nown) date) retention, acute unknown) (unknown) (no (unknown) (unknown) 7. Abdominal (units (u nknown) date) pain unknown) (unknown) (no (unknown) (unknown) 8. Active smoker (units (unknown) date) unknown) (unknown) (no (unknown) (unknown) 81 mg PO DAILY (units (unknown) date) Qty: 9 0RF unknown) (unknown) (no (unknown) (unknown) 81 mg PO DAILY (units (unknown) date) unknown) (unknown) (no (unknown) (unknown) 9. Possible (units (un known) date) alcohol abuse unknown) (unknown) (no (unknown) (unknown) ABD: soft, (units (unk nown) date) tender to unknown) palpation, no rebound/guarding, no organomegaly, normal (unknown) (no (unknown) (unknown) ALT 73 H (units (unkno wn) date) unknown) (unknown) (no (unknown) (unknown) AST 59 (units (unkno wn) date) unknown) (unknown) (no (unknown) (unknown) Admitted for (units (un known) date) several unknown) complaints including chest pain, abd pain, and LE weakness. (unknown) (no (unknown) (unknown) Age/Sex: 66 / M (units (unknown) date) unknown) (unknown) (no (unknown) (unknown) Albumin 3.8 (units (un known) date) unknown) (unknown) (no (unknown) (unknown) Albumin/Globulin (units (unknown) date) Ratio 1.5 unknown) (unknown) (no (unknown) (unknown) Alkaline (units (unkno wn) date) Phosphatase 125 unknown) (unknown) (no (unknown) (unknown) Aspirin Child (units ( unknown) date) tablet unknown) (unknown) (no (unknown) (unknown) Attending (units (unkn own) date) Provider: unknown) Umesh Akins (unknown) (no (unknown) (unknown) BUN 12 (units (unkno wn) date) unknown) (unknown) (no (unknown) (unknown) BUN/Creatinine (units (unknown) date) Ratio 22.2 H unknown) (unknown) (no (unknown) (unknown) Blood Pressure (units (unknown) date) 133/77 135/69 unknown) (unknown) (no (unknown) (unknown) CV: regular rate (units (unknown) date) and rhythm, no unknown) murmurs, reproducible chest pain on palpation (unknown) (no (unknown) (unknown) Calcium 8.5 (units (un known) date) unknown) (unknown) (no (unknown) (unknown) Carbon Dioxide (units (unknown) date) 26 unknown) (unknown) (no (unknown) (unknown) Chief complaint: (units (unknown) date) Bilateral LE, unknown) pelvis and chest wall pain (unknown) (no (unknown) (unknown) Chloride 97 L (units ( unknown) date) unknown) (unknown) (no (unknown) (unknown) Comment: (units (o wn) date) unknown) (unknown) (no (unknown) (unknown) Consult to (units (unk nown) date) Dietitian, Adult unknown) Urgent (unknown) (no (unknown) (unknown) Consult to (units (unk n) date) Occupational unknown) Therapy Evaluate + Treat (unknown) (no (unknown) (unknown) Consult to (units (unk n) date) Physical Therapy unknown) Evaluate + Treat (unknown) (no (unknown) (unknown) Consults: (units (unkn own) date) unknown) (unknown) (no (unknown) (unknown) Continued (units (unkn own) date) unknown) (unknown) (no (unknown) (unknown) Coronary artery (units (unknown) date) disease unknown) (unknown) (no (unknown) (unknown) Creatinine 0.54 (units (unknown) date) L unknown) (unknown) (no (unknown) (unknown) Creatinine 0.71. (units (unknown) date) Glucose 390. unknown) Lipase 648. AST/ALT 91/90. UA negative. Chest xray (unknown) (no (unknown) (unknown) : 1955 (units (unknown) date) Acct:[id number] unknown) (unknown) (no (unknown) (unknown) Date Patient (units (u nknown) date) Seen: 03/30/22 unknown) (unknown) (no (unknown) (unknown) Date of Service: (units (unknown) date) 03/28/22 unknown) (unknown) (no (unknown) (unknown) Date of (units (unkno wn) date) admission: unknown) (unknown) (no (unknown) (unknown) Diabetes type 2, (units (unknown) date) uncontrolled unknown) (unknown) (no (unknown) (unknown) Discharge Data (units (unknown) date) unknown) (unknown) (no (unknown) (unknown) Discharge Date: (units (unknown) date) 03/30/22 unknown) (unknown) (no (unknown) (unknown) Discharge (units (unkn own) date) Diagnosis: unknown) (unknown) (no (unknown) (unknown) Discharge Plan (units (unknown) date) unknown) (unknown) (no (unknown) (unknown) Discharge (units (unkn own) date) Providers unknown) (unknown) (no (unknown) (unknown) Discharge (units (unkn own) date) Summary unknown) (unknown) (no (unknown) (unknown) Discharge orders (units (unknown) date) + Medications unknown) (unknown) (no (unknown) (unknown) Discharge (units (unkn own) date) provider: unknown) (unknown) (no (unknown) (unknown) Discontinued (units (u nknown) date) unknown) (unknown) (no (unknown) (unknown) Doctor (units (unkno wn) date) MiscellaneousMD unknown) (unknown) (no (unknown) (unknown) EF 45-50% and no (units (unknown) date) focal WMA's. unknown) Lumbar MRI showed no cord compression or stenosis. (unknown) (no (unknown) (unknown) EXT: warm and (units ( unknown) date) well perfused unknown) with no edema (unknown) (no (unknown) (unknown) Elevated blood (units (unknown) date) alcohol level unknown) (unknown) (no (unknown) (unknown) Estimated GFR > (units (unknown) date) 60 unknown) (unknown) (no (unknown) (unknown) Exam Narrative: (units (unknown) date) unknown) (unknown) (no (unknown) (unknown) Exam (units (unkno wn) date) unknown) (unknown) (no (unknown) (unknown) Family History (units (unknown) date) (Reviewed unknown) 03/28/22 @ 21:52 by Umesh Akins MD) (unknown) (no (unknown) (unknown) Father (units (unknown) date) Lung cancer unknown) (unknown) (no (unknown) (unknown) Follow (units (unkno wn) date) up/Referrals: unknown) (unknown) (no (unknown) (unknown) GEN: comfortable (units (unknown) date) unknown) (unknown) (no (unknown) (unknown) Globulin 2.5 (units (u nknown) date) unknown) (unknown) (no (unknown) (unknown) Glucose 264 H (units ( unknown) date) unknown) (unknown) (no (unknown) (unknown) H/O heart artery (units (unknown) date) stent unknown) (unknown) (no (unknown) (unknown) HEENT: moist (units (u nknown) date) mucous membranes, unknown) PERRL (unknown) (no (unknown) (unknown) Hemoglobin A1c (units (unknown) date) 8.1 H unknown) (unknown) (no (unknown) (unknown) History of (units (unk nown) date) Present Illness unknown) (unknown) (no (unknown) (unknown) Hospital Course (units (unknown) date) unknown) (unknown) (no (unknown) (unknown) Hospital Course: (units (unknown) date) unknown) (unknown) (no (unknown) (unknown) In the ED workup (units (unknown) date) was done, vitals unknown) notable for heart rate in the 120s, (unknown) (no (unknown) (unknown) Initially found (units (unknown) date) to have urinary unknown) retention with 1L of urine in bladder, and damon (unknown) (no (unknown) (unknown) Instructions: (units ( unknown) date) Heart-Healthy unknown) Diet, DI for Atypical Chest Pain, DI for Urinary (unknown) (no (unknown) (unknown) [facility] (units (unknown) date) [address] unknown) [place] [address] (unknown) (no (unknown) (unknown) LE's (units (unkno wn) date) unknown) (unknown) (no (unknown) (unknown) Label Comments: (units (unknown) date) unknown) (unknown) (no (unknown) (unknown) Laboratory (units (unk nown) date) Results - last 24 unknown) hr (unknown) (no (unknown) (unknown) Labs (units (unkno wn) date) unknown) (unknown) (no (unknown) (unknown) Labs: (units (unkno wn) date) unknown) (unknown) (no (unknown) (unknown) Magnesium 1.8 (units ( unknown) date) unknown) (unknown) (no (unknown) (unknown) Raul Butt, (units (unknown) date) DO unknown) (unknown) (no (unknown) (unknown) Medical History (units (unknown) date) (Reviewed unknown) 03/28/22 @ 21:52 by Umesh Akins MD) (unknown) (no (unknown) (unknown) Medication (units (unk nown) date) counseling unknown) provided by Pharmacist: Yes (unknown) (no (unknown) (unknown) Miscellaneous,Do (units (unknown) date) MD gee [Primary unknown) Care Provider] (unknown) (no (unknown) (unknown) [facility] (units (unknown) date) history unknown unknown) (unknown) (no (unknown) (unknown) Mr. Chan is a (units (unknown) date) 66M with PMH CAD unknown) s/p AK, DM, active tobacco smoker who presents (unknown) (no (unknown) (unknown) NECK: trachea (units ( unknown) date) midline, no JVD unknown) (unknown) (no (unknown) (unknown) NEURO: awake, (units ( unknown) date) alert oriented, unknown) lower extremity numbness present, strength 4/5 in (unknown) (no (unknown) (unknown) Narrative (units (unkn own) date) unknown) (unknown) (no (unknown) (unknown) Narrative: (units (unk nown) date) unknown) (unknown) (no (unknown) (unknown) New (units (unkno wn) date) unknown) (unknown) (no (unknown) (unknown) Objective (units (unkn own) date) unknown) (unknown) (no (unknown) (unknown) Oxygen Delivery (units (unknown) date) Method Room Air unknown) (unknown) (no (unknown) (unknown) Oxygen Flow Rate (units (unknown) date) 0 0 unknown) (unknown) (no (unknown) (unknown) Oxygen Flow Rate (units (unknown) date) 0 unknown) (unknown) (no (unknown) (unknown) PFSH (units (unkno wn) date) unknown) (unknown) (no (unknown) (unknown) PULM: clear (units (un known) date) bilaterally, no unknown) wheezes, rhonchi, rales (unknown) (no (unknown) (unknown) Patient (units (unkno wn) date) Disposition: Home unknown) (unknown) (no (unknown) (unknown) Patient: (units (unkno wn) date) Frank Chan MR#: unknown) [id number] (unknown) (no (unknown) (unknown) Physical therapy (units (unknown) date) cleared you for unknown) home. I've placed you on a medication to help (unknown) (no (unknown) (unknown) Physician (units (unkn own) date) Instructions: unknown) Evaluate and Treat (unknown) (no (unknown) (unknown) Physician (units (unkn own) date) Instructions: unknown) Evaluate and treat (unknown) (no (unknown) (unknown) Potassium 4.0 (units ( unknown) date) unknown) (unknown) (no (unknown) (unknown) Prescriptions: (units (unknown) date) unknown) (unknown) (no (unknown) (unknown) Primary Care (units (u nknown) date) Provider: unknown) Miscellaneous,Doc tor (unknown) (no (unknown) (unknown) Primary care (units (u nknown) date) physician: unknown) (unknown) (no (unknown) (unknown) Provider (units (unkno wn) date) Discharge unknown) Comment: You had several tests including MRI back, stress (unknown) (no (unknown) (unknown) Provider (units (unkno wn) date) unknown) (unknown) (no (unknown) (unknown) Provider: (units (unkn own) date) Raul Butt unknown) D.O. (unknown) (no (unknown) (unknown) Pulse Oximetry (units (unknown) date) 95 95 unknown) (unknown) (no (unknown) (unknown) Pulse Rate 54 L (units (unknown) date) 78 unknown) (unknown) (no (unknown) (unknown) Reason For Exam: (units (unknown) date) diabetes unknown) (unknown) (no (unknown) (unknown) Respiratory Rate (units (unknown) date) 16 18 unknown) (unknown) (no (unknown) (unknown) Result Diagrams: (units (unknown) date) unknown) (unknown) (no (unknown) (unknown) Retention in (units (u nknown) date) Men, Losartan, unknown) Tamsulosin (unknown) (no (unknown) (unknown) SKIN: petechia (units (unknown) date) in lower unknown) extremities (unknown) (no (unknown) (unknown) Signed (units (unkno wn) date) By:<Electronicall unknown) y signed by Raul Butt, DAdrianO.> (unknown) (no (unknown) (unknown) [facility] (units (unkn own) date) residency clinic unknown) for cardiology referral and ongoing diabetes (unknown) (no (unknown) (unknown) Smoking Status: (units (unknown) date) Current every day unknown) smoker (unknown) (no (unknown) (unknown) Social History (units (unknown) date) (Reviewed unknown) 03/29/22 @ 01:41 by Fausto Padgett DO) (unknown) (no (unknown) (unknown) Sodium 132 L (units (u nknown) date) unknown) (unknown) (no (unknown) (unknown) Summary (units (unkno wn) date) unknown) (unknown) (no (unknown) (unknown) Surgical History (units (unknown) date) (Reviewed unknown) 03/29/22 @ 01:41 by Fausto Padgett DO) (unknown) (no (unknown) (unknown) TSH 3.18 (units (unkno wn) date) unknown) (unknown) (no (unknown) (unknown) Temperature 98.1 (units (unknown) date) F 97.3 F L unknown) (unknown) (no (unknown) (unknown) Time Patient (units (u nknown) date) Seen: 08:00 unknown) (unknown) (no (unknown) (unknown) Time Spent with (units (unknown) date) Patient unknown) (unknown) (no (unknown) (unknown) Time spent: (units (un known) date) Greater than 30 unknown) minutes (unknown) (no (unknown) (unknown) Total Bilirubin (units (unknown) date) 1.0 unknown) (unknown) (no (unknown) (unknown) Total Protein (units ( unknown) date) 6.3 unknown) (unknown) (no (unknown) (unknown) Underwent stress (units (unknown) date) test which showed unknown) old fixed infarct but nothing new. Echo with (unknown) (no (unknown) (unknown) Visit (units (unkno wn) date) Report/Discharge unknown) Packet (unknown) (no (unknown) (unknown) Vital Signs (units (un known) date) unknown) (unknown) (no (unknown) (unknown) [Embedded Image (units (unknown) date) Not Available] unknown) (unknown) (no (unknown) (unknown) alcohol intake: (units (unknown) date) former unknown) (unknown) (no (unknown) (unknown) also is (units (unkno wn) date) complaining of unknown) generalized abdominal pain with no nausea, vomiting, or (unknown) (no (unknown) (unknown) aspirin 81 mg (units ( unknown) date) Tablet,Delayed unknown) Release (Dr/Ec) (unknown) (no (unknown) (unknown) associated (units (unk nown) date) shortness of unknown) breath. No cough/fevers. He also complains of chronic (unknown) (no (unknown) (unknown) atorvastatin (units (u nknown) date) [Lipitor] 40 mg unknown) tablet (unknown) (no (unknown) (unknown) bowel sounds (units (u nknown) date) unknown) (unknown) (no (unknown) (unknown) diarrhea. (units (unkn own) date) unknown) (unknown) (no (unknown) (unknown) discharged back (units (unknown) date) on meds for his unknown) diabetes given A1c 8.1%, and his heart meds to (unknown) (no (unknown) (unknown) extremity (units (unkn own) date) numbness, and may unknown) have had an episode of incontinence in the past. He (unknown) (no (unknown) (unknown) fenofibrate (units (un known) date) micronized 134 mg unknown) capsule (unknown) (no (unknown) (unknown) has had chronic (units (unknown) date) back pain after unknown) an injury decades ago and has significant (unknown) (no (unknown) (unknown) heartburn. It is (units (unknown) date) pressure like unknown) pain in a band across his chest, with some (unknown) (no (unknown) (unknown) household (units (unkn own) date) members: unknown) significant other (unknown) (no (unknown) (unknown) include aspirin, (units (unknown) date) lipitor, unknown) metoprolol, and losartan. He will obtain new PCP at (unknown) (no (unknown) (unknown) incontinence (units (u nknown) date) unknown) (unknown) (no (unknown) (unknown) losartan 25 mg (units (unknown) date) tablet unknown) (unknown) (no (unknown) (unknown) low back pain, (units (unknown) date) which is now unknown) radiating to his legs. He has had chronic lower (unknown) (no (unknown) (unknown) management. (units (un known) date) unknown) (unknown) (no (unknown) (unknown) medications and (units (unknown) date) admitted for unknown) further treatment. (unknown) (no (unknown) (unknown) medications (units (un known) date) currently and unknown) does not follow up with any physician or PCP. He also (unknown) (no (unknown) (unknown) metformin 500 mg (units (unknown) date) tablet unknown) (unknown) (no (unknown) (unknown) metoprolol (units (unk nown) date) succinate 25 mg unknown) tablet extended release 24 hr (unknown) (no (unknown) (unknown) mobility issues. (units (unknown) date) He comes in to unknown) the hospital today with complaints of chest (unknown) (no (unknown) (unknown) naproxen sodium (units (unknown) date) [Aleve] 220 mg unknown) Capsule (unknown) (no (unknown) (unknown) oxycodone 5 mg (units (unknown) date) tablet unknown) (unknown) (no (unknown) (unknown) pain. This has (units (unknown) date) been going on a unknown) couple days. He thought it was possibly (unknown) (no (unknown) (unknown) pantoprazole (units (u nknown) date) tablet unknown) (unknown) (no (unknown) (unknown) placed. Started (units (unknown) date) on flomax and unknown) able to remove damon and void normally. He was (unknown) (no (unknown) (unknown) respiratory rate (units (unknown) date) in the 20s. Labs unknown) notable for WBC 6.5, hgb 16.8, plts 155. (unknown) (no (unknown) (unknown) tamsulosin (units (unk nown) date) [Flomax] 0.4 mg unknown) Capsule (unknown) (no (unknown) (unknown) test and echo of (units (unknown) date) your heart which unknown) all did not show any evidence of new changes. (unknown) (no (unknown) (unknown) took it 4 weeks (units (unknown) date) ago. unknown) (unknown) (no (unknown) (unknown) with multiple (units ( unknown) date) complaints. He unknown) has a history of CAD s/p AK in 2012. He takes no (unknown) (no (unknown) (unknown) with no acute (units ( unknown) date) process. EKG unknown) shows no acute ischemia. He was ordered for pain (unknown) (no (unknown) (unknown) you urinate (units (un known) date) called flomax. unknown) Take it nightly. Result panel 585 (unknown) (no date) (unknown) (unknown) <0.1 s/co ratio (un known) (unknown) (no date) (unknown) (unknown) Comment (units (unkn own) unknown) (unknown) (no date) (unknown) (unknown) Comment (units (unkn own) unknown) (unknown) (no date) (unknown) (unknown) Negative (units (unkn own) unknown) Result panel 586 (unknown) (no (unknown) (unknown) (no value) (units (unk nown) date) unknown) (unknown) (no (unknown) (unknown) (Aleve) (units (unkno wn) date) unknown) (unknown) (no (unknown) (unknown) 0.4 mg PO (units (unkn own) date) BEDTIME Qty: 90 unknown) 0RF (unknown) (no (unknown) (unknown) 134 mg PO DAILY (units (unknown) date) unknown) (unknown) (no (unknown) (unknown) 220 mg PO BID (units ( unknown) date) unknown) (unknown) (no (unknown) (unknown) 25 mg PO DAILY (units (unknown) date) Qty: 90 0RF unknown) (unknown) (no (unknown) (unknown) 2847 (units (unkno wn) date) unknown) (unknown) (no (unknown) (unknown) 40 mg PO BID (units (u nknown) date) Qty: 0 0RF unknown) (unknown) (no (unknown) (unknown) 40 mg PO DAILY (units (unknown) date) Qty: 90 0RF unknown) (unknown) (no (unknown) (unknown) 5 MG PO Q8HR As (units (unknown) date) Needed for Pain unknown) (unknown) (no (unknown) (unknown) 5 mg PO Q8HR (units (u nknown) date) PRN (Reason: unknown) Pain.) Qty: 20 0RF (unknown) (no (unknown) (unknown) 500 mg PO BID (units ( unknown) date) Qty: 180 0RF unknown) (unknown) (no (unknown) (unknown) 81 mg PO DAILY (units (unknown) date) Qty: 9 0RF unknown) (unknown) (no (unknown) (unknown) Age/Sex: 66 / M (units (unknown) date) unknown) (unknown) (no (unknown) (unknown) Allergies (units (unkn own) date) unknown) (unknown) (no (unknown) (unknown) Allergy/AdvReac (units (unknown) date) Type Severity unknown) Reaction Status Date / Time (unknown) (no (unknown) (unknown) Coronary artery (units (unknown) date) disease unknown) (unknown) (no (unknown) (unknown) : 1955 (units (unknown) date) Acct:[id number] unknown) (unknown) (no (unknown) (unknown) Date of (units (unkno wn) date) Service: unknown) 04/30/22 (unknown) (no (unknown) (unknown) Departure (units (unkn own) date) unknown) (unknown) (no (unknown) (unknown) Diabetes type (units ( unknown) date) 2, uncontrolled unknown) (unknown) (no (unknown) (unknown) Discharge Plan (units (unknown) date) unknown) (unknown) (no (unknown) (unknown) ER Physician: (units ( unknown) date) Emma Stevens unknown) D.O. (unknown) (no (unknown) (unknown) Elevated blood (units (unknown) date) alcohol level unknown) (unknown) (no (unknown) (unknown) Emergency (units (unkn own) date) Report unknown) (unknown) (no (unknown) (unknown) Family History (units (unknown) date) (Reviewed unknown) 03/28/22 @ 21:52 by Umesh Akins MD) (unknown) (no (unknown) (unknown) Father (units (unknown) date) Lung cancer unknown) (unknown) (no (unknown) (unknown) General (units (unkno wn) date) unknown) (unknown) (no (unknown) (unknown) H/O heart (units (unkn own) date) artery stent unknown) (unknown) (no (unknown) (unknown) HPI - Chest (units (un known) date) Pain unknown) (unknown) (no (unknown) (unknown) Home (units (unkno wn) date) Medications unknown) (unknown) (no (unknown) (unknown) [facility] (units (unknown) date) [address] unknown) [place] [address] (unknown) (no (unknown) (unknown) Label Comments: (units (unknown) date) unknown) (unknown) (no (unknown) (unknown) Medical History (units (unknown) date) (Reviewed unknown) 03/28/22 @ 21:52 by Umesh Akins MD) (unknown) (no (unknown) (unknown) Medication (units (unk nown) date) Instructions unknown) Recorded Confirmed (unknown) (no (unknown) (unknown) Medication (units (unk nown) date) Instructions unknown) Recorded (unknown) (no (unknown) (unknown) Miscellaneous,D (units (unknown) date) MD barb unknown) [Primary Care Provider] (unknown) (no (unknown) (unknown) Mother Medical (units (unknown) date) history unknown unknown) (unknown) (no (unknown) (unknown) No Action (units (unkn own) date) unknown) (unknown) (no (unknown) (unknown) No Known Drug (units ( unknown) date) Allergies unknown) Allergy Verified 10/31/20 23:10 (unknown) (no (unknown) (unknown) Patient History (units (unknown) date) unknown) (unknown) (no (unknown) (unknown) Patient: (units (unkno wn) date) Aquilino Chanvan unknown) MR#: [id number] (unknown) (no (unknown) (unknown) Prescriptions: (units (unknown) date) unknown) (unknown) (no (unknown) (unknown) Previous Rx's (units ( unknown) date) unknown) (unknown) (no (unknown) (unknown) Referrals: (units (unk nown) date) unknown) (unknown) (no (unknown) (unknown) Related Data (units (u nknown) date) unknown) (unknown) (no (unknown) (unknown) Signed By: (units (unk nown) date) unknown) (unknown) (no (unknown) (unknown) Smoking Status: (units (unknown) date) Current every unknown) day smoker (unknown) (no (unknown) (unknown) Social History (units (unknown) date) (Reviewed unknown) 03/29/22 @ 01:41 by Fausto Padgett DO) (unknown) (no (unknown) (unknown) Stated (units (unkno wn) date) Complaint: Chest unknown) pain (unknown) (no (unknown) (unknown) Substance Use (units ( unknown) date) Type: does not unknown) use (unknown) (no (unknown) (unknown) Surgical (units (unkno wn) date) History unknown) (unknown) (no (unknown) (unknown) Time Seen by (units (u nknown) date) Provider: unknown) 04/30/22 18:56 (unknown) (no (unknown) (unknown) alcohol intake: (units (unknown) date) former unknown) (unknown) (no (unknown) (unknown) aspirin 81 mg (units ( unknown) date) Tablet,Delayed unknown) Release (Dr/Ec) (unknown) (no (unknown) (unknown) aspirin 81 mg (units ( unknown) date) tablet,delayed unknown) 81 mg PO DAILY #9 tabs 03/30/22 (unknown) (no (unknown) (unknown) atorvastatin 40 (units (unknown) date) mg tablet unknown) (Lipitor) 40 mg PO DAILY #90 tabs 03/30/22 (unknown) (no (unknown) (unknown) atorvastatin (units (u nknown) date) [Lipitor] 40 mg unknown) tablet (unknown) (no (unknown) (unknown) capsule (units (unkno wn) date) unknown) (unknown) (no (unknown) (unknown) fenofibrate (units (un known) date) micronized 134 unknown) mg 134 mg PO DAILY 11/01/20 11/01/20 (unknown) (no (unknown) (unknown) fenofibrate (units (un known) date) micronized 134 unknown) mg capsule (unknown) (no (unknown) (unknown) household (units (unkn own) date) members: unknown) significant other (unknown) (no (unknown) (unknown) losartan 25 mg (units (unknown) date) tablet 25 mg PO unknown) DAILY #90 tabs 03/30/22 (unknown) (no (unknown) (unknown) losartan 25 mg (units (unknown) date) tablet unknown) (unknown) (no (unknown) (unknown) metformin 500 (units ( unknown) date) mg tablet 500 mg unknown) PO BID #180 tabs 03/30/22 (unknown) (no (unknown) (unknown) metformin 500 (units ( unknown) date) mg tablet unknown) (unknown) (no (unknown) (unknown) metoprolol (units (unk nown) date) succinate 25 mg unknown) 25 mg PO DAILY #90 tabs 03/30/22 (unknown) (no (unknown) (unknown) metoprolol (units (unk nown) date) succinate 25 mg unknown) tablet extended release 24 hr (unknown) (no (unknown) (unknown) naproxen sodium (units (unknown) date) 220 mg capsule unknown) 220 mg PO BID 03/28/22 03/28/22 (unknown) (no (unknown) (unknown) naproxen sodium (units (unknown) date) [Aleve] 220 mg unknown) Capsule (unknown) (no (unknown) (unknown) oxycodone 5 mg (units (unknown) date) tablet 5 mg PO unknown) Q8HR PRN Pain. #20 tabs 03/30/22 (unknown) (no (unknown) (unknown) oxycodone 5 mg (units (unknown) date) tablet unknown) (unknown) (no (unknown) (unknown) pantoprazole 40 (units (unknown) date) mg PO BID ##0 unknown) 11/01/20 (unknown) (no (unknown) (unknown) pantoprazole (units (u nknown) date) tablet unknown) (unknown) (no (unknown) (unknown) release (units (unkno wn) date) unknown) (unknown) (no (unknown) (unknown) tablet,extended (units (unknown) date) release 24 hr unknown) (unknown) (no (unknown) (unknown) tamsulosin 0.4 (units (unknown) date) mg capsule unknown) (Flomax) 0.4 mg PO BEDTIME #90 caps 03/30/22 (unknown) (no (unknown) (unknown) tamsulosin (units (unk nown) date) [Flomax] 0.4 mg unknown) Capsule (unknown) (no (unknown) (unknown) took it 4 weeks (units (unknown) date) ago. unknown) Result panel 587 (unknown) (no (unknown) (unknown) (no value) (units (unk nown) date) unknown) (unknown) (no (unknown) (unknown) 04/30/22 (units (unkno wn) date) unknown) (unknown) (no (unknown) (unknown) [address] [place] [address] (units (unknown) date) unknown) (unknown) (no (unknown) (unknown) [address] (units (unkno wn) date) unknown) (unknown) (no (unknown) (unknown) 23:01. [place] (units ( unknown) date) unknown) (unknown) (no (unknown) (unknown) Accession Number: (units (unknown) date) [id number] unknown) (unknown) (no (unknown) (unknown) Age/Sex: 66 / M (units (unknown) date) Date of Service: unknown) (unknown) (no (unknown) (unknown) [place], [place] (units ( unknown) date) [address] unknown) (unknown) (no (unknown) (unknown) Approved by: (units (u nknown) date) callie Mancuso) Gina on 04/30/2022 at 19:20 (unknown) (no (unknown) (unknown) Bones and chest (units (unknown) date) wall: No unknown) suspicious bony lesions. Age-appropriate bony (unknown) (no (unknown) (unknown) COMPARISON: (units (un known) date) [facility], unknown) CT, CT ANGIO CHEST PE PROTOCOL, 03/28/2022, (unknown) (no (unknown) (unknown) : 1955 (units (unknown) date) Acct:[id number] unknown) (unknown) (no (unknown) (unknown) Dictated by: (units (u nknown) date) callie Mancuso) Gina on 04/30/2022 at 19:20 (unknown) (no (unknown) (unknown) FINDINGS: (units (unkn own) date) unknown) (unknown) (no (unknown) (unknown) Hospital, CR, XR (units (unknown) date) CHEST 1V, unknown) 03/28/2022, 18:51. (unknown) (no (unknown) (unknown) IMPRESSION: (units (un known) date) unknown) (unknown) (no (unknown) (unknown) INDICATIONS: (units (u nknown) date) chest pain unknown) (unknown) (no (unknown) (unknown) [facility] (units (unknown) date) unknown) (unknown) (no (unknown) (unknown) Limited portable (units (unknown) date) chest examination, unknown) without a significant cardiopulmonary (unknown) (no (unknown) (unknown) Loc: ED (units (unkno wn) date) unknown) (unknown) (no (unknown) (unknown) Lungs and pleura: (units (unknown) date) On this unknown) semiupright portable chest examination, no large (unknown) (no (unknown) (unknown) Mediastinum: (units (u nknown) date) Mediastinal unknown) contours appear normal. Heart size is normal. (unknown) (no (unknown) (unknown) No focal (units (unkno wn) date) unknown) (unknown) (no (unknown) (unknown) Ordering (units (unkno wn) date) Provider: unknown) Emma Stevens D.O. (unknown) (no (unknown) (unknown) PROCEDURE: XR (units ( unknown) date) CHEST 1V unknown) (unknown) (no (unknown) (unknown) Patient: (units (unkno wn) date) Frank Chan MR#: unknown) [id number] (unknown) (no (unknown) (unknown) Procedure: XR (units ( unknown) date) chest 1V unknown) (unknown) (no (unknown) (unknown) Signed (units (unkno wn) date) unknown) (unknown) (no (unknown) (unknown) Surgical changes (units (unknown) date) and devices: None. unknown) (unknown) (no (unknown) (unknown) TECHNIQUE: One (units (unknown) date) view of the chest unknown) was acquired. (unknown) (no (unknown) (unknown) XRay Report (units (un known) date) unknown) (unknown) (no (unknown) (unknown) abnormality (units (un known) date) unknown) (unknown) (no (unknown) (unknown) changes are seen. (units (unknown) date) Overlying soft unknown) tissues appear unremarkable. (unknown) (no (unknown) (unknown) degenerative (units (u nknown) date) unknown) (unknown) (no (unknown) (unknown) identified. (units (un known) date) unknown) (unknown) (no (unknown) (unknown) incomplete (units (unk nown) date) unknown) (unknown) (no (unknown) (unknown) infiltrates are (units (unknown) date) seen. No unknown) pneumothorax or significant pleural effusions are (unknown) (no (unknown) (unknown) inspiratory (units (un known) date) result is noted, unknown) causing a crowded appearance to the lung markings. (unknown) (no (unknown) (unknown) or large pleural (units (unknown) date) effusions are unknown) seen. No focal infiltrates are seen. An (unknown) (no (unknown) (unknown) pneumothorax (units (u nknown) date) unknown) (unknown) (no (unknown) (unknown) seen. (units (unkno wn) date) unknown) Result panel 588 (unknown) (no date) (unknown) (unknown) 13.4 % (unkn own) (unknown) (no date) (unknown) (unknown) 15.4 g/dl (unkn own) (unknown) (no date) (unknown) (unknown) 159 x10 3/ul (unkn own) (unknown) (no date) (unknown) (unknown) 2.0 % (unkn own) (unknown) (no date) (unknown) (unknown) 200 /ul (unkn own) (unknown) (no date) (unknown) (unknown) 2900 /ul (unkn own) (unknown) (no date) (unknown) (unknown) 3.5 % (unkn own) (unknown) (no date) (unknown) (unknown) 30.3 pg (unkn own) (unknown) (no date) (unknown) (unknown) 300 /ul (unkn own) (unknown) (no date) (unknown) (unknown) 33.9 % (unkn own) (unknown) (no date) (unknown) (unknown) 34.9 % (unkn own) (unknown) (no date) (unknown) (unknown) 44.2 % (unkn own) (unknown) (no date) (unknown) (unknown) 4500 /ul (unkn own) (unknown) (no date) (unknown) (unknown) 5.09 x10 6/ul (unkn own) (unknown) (no date) (unknown) (unknown) 51.7 % (unkn own) (unknown) (no date) (unknown) (unknown) 8.6 x10 3/ul (unkn own) (unknown) (no date) (unknown) (unknown) 8.9 % (unkn own) (unknown) (no date) (unknown) (unknown) 800 /ul (unkn own) (unknown) (no date) (unknown) (unknown) 86.9 fl (unkn own) Result panel 589 (unknown) (no date) (unknown) (unknown) > 60 ml/min (unkn own) (unknown) (no date) (unknown) (unknown) > 60 ml/min (unkn own) (unknown) (no date) (unknown) (unknown) 0.66 mg/dl (unkn own) (unknown) (no date) (unknown) (unknown) 1.1 mg/dl (unkn own) (unknown) (no date) (unknown) (unknown) 1.4 (units (unkn own) unknown) (unknown) (no date) (unknown) (unknown) 1.6 mg/dl (unkn own) (unknown) (no date) (unknown) (unknown) 10.6 (units (unkn own) unknown) (unknown) (no date) (unknown) (unknown) 100 u/l (unkn own) (unknown) (no date) (unknown) (unknown) 104 mmol/l (unkn own) (unknown) (no date) (unknown) (unknown) 138 mmol/l (unkn own) (unknown) (no date) (unknown) (unknown) 17 mmol/l (unkn own) (unknown) (no date) (unknown) (unknown) 2.8 g/dl (unkn own) (unknown) (no date) (unknown) (unknown) 206 mg/dl (unkn own) (unknown) (no date) (unknown) (unknown) 206 mg/dl (unkn own) (unknown) (no date) (unknown) (unknown) 3.9 g/dl (unkn own) (unknown) (no date) (unknown) (unknown) 381 u/l (unkn own) (unknown) (no date) (unknown) (unknown) 4.2 mmol/l (unkn own) (unknown) (no date) (unknown) (unknown) 42 iu/l (unkn own) (unknown) (no date) (unknown) (unknown) 44 u/l (unkn own) (unknown) (no date) (unknown) (unknown) 49 iu/l (unkn own) (unknown) (no date) (unknown) (unknown) 6.7 g/dl (unkn own) (unknown) (no date) (unknown) (unknown) 7 mg/dl (unkn own) (unknown) (no date) (unknown) (unknown) 8.1 mg/dl (unkn own) (unknown) (no date) (unknown) (unknown) Test not % (unkn own) performed (unknown) (no date) (unknown) (unknown) Test not % (unkn own) performed (unknown) (no date) (unknown) (unknown) Test not ng/ml (unkn own) performed (unknown) (no date) (unknown) (unknown) Test not ng/ml (unkn own) performed Result panel 590 (unknown) (no date) (unknown) (unknown) > 60 ml/min (unkn own) (unknown) (no date) (unknown) (unknown) > 60 ml/min (unkn own) (unknown) (no date) (unknown) (unknown) < 0.012 ng/ml (unkn own) (unknown) (no date) (unknown) (unknown) < 0.012 ng/ml (unkn own) (unknown) (no date) (unknown) (unknown) 0.66 mg/dl (unkn own) (unknown) (no date) (unknown) (unknown) 1.1 mg/dl (unkn own) (unknown) (no date) (unknown) (unknown) 1.4 (units (unkn own) unknown) (unknown) (no date) (unknown) (unknown) 1.6 mg/dl (unkn own) (unknown) (no date) (unknown) (unknown) 10.6 (units (unkn own) unknown) (unknown) (no date) (unknown) (unknown) 100 u/l (unkn own) (unknown) (no date) (unknown) (unknown) 104 mmol/l (unkn own) (unknown) (no date) (unknown) (unknown) 138 mmol/l (unkn own) (unknown) (no date) (unknown) (unknown) 17 mmol/l (unkn own) (unknown) (no date) (unknown) (unknown) 2.8 g/dl (unkn own) (unknown) (no date) (unknown) (unknown) 206 mg/dl (unkn own) (unknown) (no date) (unknown) (unknown) 206 mg/dl (unkn own) (unknown) (no date) (unknown) (unknown) 3.9 g/dl (unkn own) (unknown) (no date) (unknown) (unknown) 381 u/l (unkn own) (unknown) (no date) (unknown) (unknown) 4.2 mmol/l (unkn own) (unknown) (no date) (unknown) (unknown) 42 iu/l (unkn own) (unknown) (no date) (unknown) (unknown) 44 u/l (unkn own) (unknown) (no date) (unknown) (unknown) 49 iu/l (unkn own) (unknown) (no date) (unknown) (unknown) 6.7 g/dl (unkn own) (unknown) (no date) (unknown) (unknown) 7 mg/dl (unkn own) (unknown) (no date) (unknown) (unknown) 8.1 mg/dl (unkn own) (unknown) (no date) (unknown) (unknown) Test not % (unkn own) performed (unknown) (no date) (unknown) (unknown) Test not % (unkn own) performed (unknown) (no date) (unknown) (unknown) Test not ng/ml (unkn own) performed (unknown) (no date) (unknown) (unknown) Test not ng/ml (unkn own) performed Result panel 591 (unknown) (no (unknown) (unknown) (no value) (units (unk nown) date) unknown) (unknown) (no (unknown) (unknown) (Aleve) (units (unkno wn) date) unknown) (unknown) (no (unknown) (unknown) 0.4 mg PO BEDTIME (units (unknown) date) Qty: 90 0RF unknown) (unknown) (no (unknown) (unknown) 04/30/22 04/30/22 (units (unknown) date) Range/Units unknown) (unknown) (no (unknown) (unknown) 04/30/22 19:01 (units (unknown) date) unknown) (unknown) (no (unknown) (unknown) 04/30/22 19:06 (units (unknown) date) unknown) (unknown) (no (unknown) (unknown) 04/30/22 19:10 (units (unknown) date) unknown) (unknown) (no (unknown) (unknown) 04/30/22 19:30 (units (unknown) date) unknown) (unknown) (no (unknown) (unknown) 04/30/22 (units (unkno wn) date) unknown) (unknown) (no (unknown) (unknown) 134 mg PO DAILY (units (unknown) date) unknown) (unknown) (no (unknown) (unknown) 18:59 04/30/22 (units (unknown) date) unknown) (unknown) (no (unknown) (unknown) 19:00 (units (unkno wn) date) unknown) (unknown) (no (unknown) (unknown) 19:01 19:01 (units (un known) date) unknown) (unknown) (no (unknown) (unknown) 19:02 04/30/22 (units (unknown) date) unknown) (unknown) (no (unknown) (unknown) 220 mg PO BID (units ( unknown) date) unknown) (unknown) (no (unknown) (unknown) 25 mg PO DAILY (units (unknown) date) Qty: 90 0RF unknown) (unknown) (no (unknown) (unknown) 2847 (units (unkno wn) date) unknown) (unknown) (no (unknown) (unknown) 40 mg PO BID Qty: (units (unknown) date) 0 0RF unknown) (unknown) (no (unknown) (unknown) 40 mg PO DAILY (units (unknown) date) Qty: 90 0RF unknown) (unknown) (no (unknown) (unknown) 5 MG PO Q8HR As (units (unknown) date) Needed for Pain unknown) (unknown) (no (unknown) (unknown) 5 mg PO Q8HR PRN (units (unknown) date) (Reason: Pain.) unknown) Qty: 20 0RF (unknown) (no (unknown) (unknown) 500 mg PO BID (units ( unknown) date) Qty: 180 0RF unknown) (unknown) (no (unknown) (unknown) 81 mg PO DAILY (units (unknown) date) Qty: 9 0RF unknown) (unknown) (no (unknown) (unknown) ABDOMEN: Soft, (units (unknown) date) nontender. unknown) Normoactive bowel sounds all 4 quadrants. No (unknown) (no (unknown) (unknown) ALT 42 (<50) IU/L (units (unknown) date) unknown) (unknown) (no (unknown) (unknown) AST 49 (17-59) (units (unknown) date) IU/L unknown) (unknown) (no (unknown) (unknown) Age/Sex: 66 / M (units (unknown) date) unknown) (unknown) (no (unknown) (unknown) Albumin 3.9 (units (un known) date) (3.5-5.0) g/dL unknown) (unknown) (no (unknown) (unknown) Albumin/Globulin (units (unknown) date) Ratio 1.4 unknown) (1.0-2.8) (unknown) (no (unknown) (unknown) Alkaline (units (unkno wn) date) Phosphatase 100 unknown) (38-126) U/L (unknown) (no (unknown) (unknown) Allergies (units (unkn own) date) unknown) (unknown) (no (unknown) (unknown) Allergy/AdvReac (units (unknown) date) Type Severity unknown) Reaction Status Date / Time (unknown) (no (unknown) (unknown) BACK: No (units (unkno wn) date) cervical, thoracic unknown) or lumbar vertebral point tenderness. Patient has (unknown) (no (unknown) (unknown) BNP [NT-proBNP (units (unknown) date) (BNP-Adult 18+)] unknown) Stat (unknown) (no (unknown) (unknown) BUN 7 L (9-20) (units (unknown) date) mg/dL unknown) (unknown) (no (unknown) (unknown) BUN/Creatinine (units (unknown) date) Ratio 10.6 (6-22) unknown) (unknown) (no (unknown) (unknown) Baso # (Auto) 200 (units (unknown) date) H (0-100) /uL unknown) (unknown) (no (unknown) (unknown) Baso % (Auto) 2.0 (units (unknown) date) (0-2) % unknown) (unknown) (no (unknown) (unknown) Blood Pressure (units (unknown) date) 98/68 98/ unknown) (unknown) (no (unknown) (unknown) Blood Pressure (units (unknown) date) unknown) (unknown) (no (unknown) (unknown) CARDIOVASCULAR: (units (unknown) date) Regular rate and unknown) rhythm without murmurs, rubs or gallops. (unknown) (no (unknown) (unknown) CK-MB (CK-2) Rel (units (unknown) date) Index TNP unknown) (unknown) (no (unknown) (unknown) CK-MB (CK-2) TNP (units (unknown) date) unknown) (unknown) (no (unknown) (unknown) Calcium 8.1 L (units ( unknown) date) (8.4-10.2) mg/dL unknown) (unknown) (no (unknown) (unknown) Carbon Dioxide 17 (units (unknown) date) L (22-32) mmol/L unknown) (unknown) (no (unknown) (unknown) Chief Complaint: (units (unknown) date) Chest Pain unknown) (unknown) (no (unknown) (unknown) Chloride 104 (units (u nknown) date) (98-107) mmol/L unknown) (unknown) (no (unknown) (unknown) Complete Blood (units (unknown) date) Count AUTO DIFF unknown) Stat (unknown) (no (unknown) (unknown) Comprehensive (units ( unknown) date) Metabolic Panel unknown) Stat (unknown) (no (unknown) (unknown) Coronary artery (units (unknown) date) disease unknown) (unknown) (no (unknown) (unknown) Course (units (unkno wn) date) unknown) (unknown) (no (unknown) (unknown) Covid-19 + FLU (units (unknown) date) A/B + RSV - PCR unknown) Stat (unknown) (no (unknown) (unknown) Creatinine 0.66 (units (unknown) date) (0.66-1.25) mg/dL unknown) (unknown) (no (unknown) (unknown) : 1955 (units (unknown) date) Acct:[id number] unknown) (unknown) (no (unknown) (unknown) Date of Service: (units (unknown) date) 04/30/22 unknown) (unknown) (no (unknown) (unknown) Departure (units (unkn own) date) unknown) (unknown) (no (unknown) (unknown) Diabetes type 2, (units (unknown) date) uncontrolled unknown) (unknown) (no (unknown) (unknown) Discharge Plan (units (unknown) date) unknown) (unknown) (no (unknown) (unknown) Dorsalis pedis (units (unknown) date) and tibialis unknown) pulses are 2+ and lower extremities. Sensation is (unknown) (no (unknown) (unknown) ED Orders (units (unkn own) date) unknown) (unknown) (no (unknown) (unknown) EKG-12 Lead Stat (units (unknown) date) unknown) (unknown) (no (unknown) (unknown) ER Physician: (units ( unknown) date) Emma Stevens D.O. unknown) (unknown) (no (unknown) (unknown) EXTREMITIES: (units (u nknown) date) Normal range of unknown) motion, no clubbing or edema. Neurovascularly (unknown) (no (unknown) (unknown) Elevated blood (units (unknown) date) alcohol level unknown) (unknown) (no (unknown) (unknown) Emergency Report (units (unknown) date) unknown) (unknown) (no (unknown) (unknown) Eos # (Auto) 300 (units (unknown) date) (0-450) /uL unknown) (unknown) (no (unknown) (unknown) Eos % (Auto) 3.5 (units (unknown) date) (2-4) % unknown) (unknown) (no (unknown) (unknown) Estimated GFR > (units (unknown) date) 60 (>60) mL/min unknown) (unknown) (no (unknown) (unknown) Exam Narrative: (units (unknown) date) unknown) (unknown) (no (unknown) (unknown) Exam (units (unkno wn) date) unknown) (unknown) (no (unknown) (unknown) Family History (units (unknown) date) (Reviewed 04/30/22 unknown) @ 19:35 by Emma Stevens DO) (unknown) (no (unknown) (unknown) Father (units (unknown) date) Lung cancer unknown) (unknown) (no (unknown) (unknown) Flomax and on his (units (unknown) date) diabetic unknown) medications and heart medications. Patient does note (unknown) (no (unknown) (unknown) GENERAL: Alert (units (unknown) date) and oriented x unknown) three, male in mild distress (unknown) (no (unknown) (unknown) : No CVA (units (unk nown) date) tenderness unknown) (unknown) (no (unknown) (unknown) General (units (unkno wn) date) unknown) (unknown) (no (unknown) (unknown) Globulin 2.8 (units (u nknown) date) (1.7-4.1) g/dL unknown) (unknown) (no (unknown) (unknown) Glucose 206 H (units ( unknown) date) (80-110) mg/dL unknown) (unknown) (no (unknown) (unknown) H/O heart artery (units (unknown) date) stent unknown) (unknown) (no (unknown) (unknown) HEENT: Head (units (un known) date) normocephalic, unknown) atraumatic, EOMI, pupils reactive, face symmetric, (unknown) (no (unknown) (unknown) HPI - Chest Pain (units (unknown) date) unknown) (unknown) (no (unknown) (unknown) HPI narrative: (units (unknown) date) unknown) (unknown) (no (unknown) (unknown) Hct 44.2 (41-53) (units (unknown) date) % unknown) (unknown) (no (unknown) (unknown) Hgb 15.4 (units (unkno wn) date) (13.5-17.5) g/dL unknown) (unknown) (no (unknown) (unknown) History of (units (unk nown) date) Present Illness unknown) (unknown) (no (unknown) (unknown) Home Medications (units (unknown) date) unknown) (unknown) (no (unknown) (unknown) Initial Vital (units ( unknown) date) Signs unknown) (unknown) (no (unknown) (unknown) Initial Vital (units ( unknown) date) Signs: unknown) (unknown) (no (unknown) (unknown) [facility] (units (unknown) date) [address] unknown) [place] [address] (unknown) (no (unknown) (unknown) Lab Data (units (unkno wn) date) unknown) (unknown) (no (unknown) (unknown) Lab Results (units (un known) date) unknown) (unknown) (no (unknown) (unknown) Label Comments: (units (unknown) date) unknown) (unknown) (no (unknown) (unknown) Labs: (units (unkno wn) date) unknown) (unknown) (no (unknown) (unknown) Limitations: no (units (unknown) date) limitations unknown) (unknown) (no (unknown) (unknown) Lipase 381 H (units (u nknown) date) (23-300) U/L unknown) (unknown) (no (unknown) (unknown) Lipase Stat (units (un known) date) unknown) (unknown) (no (unknown) (unknown) Lymph # (Auto) (units (unknown) date) 2900 (5385-5867) unknown) /uL (unknown) (no (unknown) (unknown) Lymph % (Auto) (units (unknown) date) 33.9 (25-40) % unknown) (unknown) (no (unknown) (unknown) MCH 30.3 (26-34) (units (unknown) date) PG unknown) (unknown) (no (unknown) (unknown) MCHC 34.9 (30-36) (units (unknown) date) % unknown) (unknown) (no (unknown) (unknown) MCV 86.9 (80-100) (units (unknown) date) fL unknown) (unknown) (no (unknown) (unknown) MDM - Chest Pain (units (unknown) date) unknown) (unknown) (no (unknown) (unknown) Magnesium 1.6 (units ( unknown) date) (1.6-2.3) mg/dL unknown) (unknown) (no (unknown) (unknown) Magnesium Stat (units (unknown) date) unknown) (unknown) (no (unknown) (unknown) Medical History (units (unknown) date) (Reviewed 04/30/22 unknown) @ 19:35 by Emma Stevens DO) (unknown) (no (unknown) (unknown) Medication (units (unk nown) date) Instructions unknown) Recorded Confirmed (unknown) (no (unknown) (unknown) Medication (units (unk nown) date) Instructions unknown) Recorded (unknown) (no (unknown) (unknown) Miscellaneous,Doc (units (unknown) date) MD shaggy [Primary unknown) Care Provider] (unknown) (no (unknown) (unknown) Mode of arrival: (units (unknown) date) EMS unknown) (unknown) (no (unknown) (unknown) [place] # (Auto) 800 (units (unknown) date) (0-900) /uL unknown) (unknown) (no (unknown) (unknown) [place] % (Auto) 8.9 (units (unknown) date) (3-14) % unknown) (unknown) (no (unknown) (unknown) [facility] (units (unknown) date) history unknown unknown) (unknown) (no (unknown) (unknown) Muscle strength is (units (unknown) date) 5/5 in lower unknown) extremities, DTRs are 2/4 and lower extremities. (unknown) (no (unknown) (unknown) NECK: Supple, (units ( unknown) date) full range of unknown) motion (unknown) (no (unknown) (unknown) NEUROLOGICAL: (units ( unknown) date) Cranial nerves II unknown) through XII grossly intact. Moving all (unknown) (no (unknown) (unknown) Narrative (units (unkn own) date) unknown) (unknown) (no (unknown) (unknown) Neut # (Auto) (units ( unknown) date) 4500 (9820-1900) unknown) /uL (unknown) (no (unknown) (unknown) Neut % (Auto) (units ( unknown) date) 51.7 (50-75) % unknown) (unknown) (no (unknown) (unknown) No Action (units (unkn own) date) unknown) (unknown) (no (unknown) (unknown) No Known Drug (units ( unknown) date) Allergies Allergy unknown) Verified 10/31/20 23:10 (unknown) (no (unknown) (unknown) Ordered: (units (unkno wn) date) unknown) (unknown) (no (unknown) (unknown) Orders (units (unkno wn) date) unknown) (unknown) (no (unknown) (unknown) Oxygen Delivery (units (unknown) date) Method Room Air unknown) (unknown) (no (unknown) (unknown) Oxygen Delivery (units (unknown) date) Method unknown) (unknown) (no (unknown) (unknown) Patient History (units (unknown) date) unknown) (unknown) (no (unknown) (unknown) Patient: (units (unkno wn) date) Frank Chan MR#: unknown) [id number] (unknown) (no (unknown) (unknown) Plt Count 159 (units ( unknown) date) (150-400) X103/uL unknown) (unknown) (no (unknown) (unknown) Potassium 4.2 (units ( unknown) date) (3.4-5.1) mmol/L unknown) (unknown) (no (unknown) (unknown) Prescriptions: (units (unknown) date) unknown) (unknown) (no (unknown) (unknown) Previous Rx's (units ( unknown) date) unknown) (unknown) (no (unknown) (unknown) Pulse Oximetry 94 (units (unknown) date) unknown) (unknown) (no (unknown) (unknown) Pulse Oximetry 95 (units (unknown) date) 04/30/22 18:59 unknown) (unknown) (no (unknown) (unknown) Pulse Oximetry 97 (units (unknown) date) 95 unknown) (unknown) (no (unknown) (unknown) Pulse Rate 91 H (units (unknown) date) 04/30/22 18:59 unknown) (unknown) (no (unknown) (unknown) Pulse Rate 92 H (units (unknown) date) 91 H unknown) (unknown) (no (unknown) (unknown) Pulse Rate 93 H (units (unknown) date) unknown) (unknown) (no (unknown) (unknown) RBC 5.09 (units (unkno wn) date) (4.5-5.9) X106/uL unknown) (unknown) (no (unknown) (unknown) RDW 13.4 (units (unkno wn) date) (11.6-14.8) % unknown) (unknown) (no (unknown) (unknown) RESPIRATORY: (units (u nknown) date) Breath sounds unknown) equal bilaterally, no wheezes rales or rhonchi. (unknown) (no (unknown) (unknown) ROS Unobtainable: (units (unknown) date) All systems unknown) reviewed + are unremarkable except as noted in HPI (unknown) (no (unknown) (unknown) Referrals: (units (unk nown) date) unknown) (unknown) (no (unknown) (unknown) Related Data (units (u nknown) date) unknown) (unknown) (no (unknown) (unknown) Respiratory Rate (units (unknown) date) 12 unknown) (unknown) (no (unknown) (unknown) Respiratory Rate (units (unknown) date) 18 19 unknown) (unknown) (no (unknown) (unknown) Respiratory Rate (units (unknown) date) 19 04/30/22 18:59 unknown) (unknown) (no (unknown) (unknown) Result diagrams: (units (unknown) date) unknown) (unknown) (no (unknown) (unknown) Review of Systems (units (unknown) date) unknown) (unknown) (no (unknown) (unknown) SKIN: Warm, dry, (units (unknown) date) no petechiae, no unknown) rashes or lesions. (unknown) (no (unknown) (unknown) Signed By: (units (unk nown) date) unknown) (unknown) (no (unknown) (unknown) Smoking Status: (units (unknown) date) Current every day unknown) smoker (unknown) (no (unknown) (unknown) Social History (units (unknown) date) (Reviewed 04/30/22 unknown) @ 19:35 by Emma Stevnes DO) (unknown) (no (unknown) (unknown) Sodium 138 (units (unk nown) date) (137-145) mmol/L unknown) (unknown) (no (unknown) (unknown) Source: patient, (units (unknown) date) EMS, RN notes unknown) reviewed and old records reviewed (unknown) (no (unknown) (unknown) Stated Complaint: (units (unknown) date) Chest pain unknown) (unknown) (no (unknown) (unknown) Substance Use (units ( unknown) date) Type: does not use unknown) (unknown) (no (unknown) (unknown) Surgical History (units (unknown) date) (Reviewed 04/30/22 unknown) @ 19:35 by Emma Stevens DO) (unknown) (no (unknown) (unknown) Temperature 98.3 (units (unknown) date) F unknown) (unknown) (no (unknown) (unknown) Temperature (units (un known) date) unknown) (unknown) (no (unknown) (unknown) This is a (units (unkn own) date) 66-year-old male unknown) with complaint of chest, low back pain that radiates (unknown) (no (unknown) (unknown) Time Seen by (units (u nknown) date) Provider: 04/30/22 unknown) 18:56 (unknown) (no (unknown) (unknown) Total Bilirubin (units (unknown) date) 1.1 (0.2-1.3) unknown) mg/dL (unknown) (no (unknown) (unknown) Total Creatine (units (unknown) date) Kinase 44 L unknown) (55-170) U/L (unknown) (no (unknown) (unknown) Total Protein 6.7 (units (unknown) date) (6.3-8.2) g/dL unknown) (unknown) (no (unknown) (unknown) Troponin + CK (units ( unknown) date) Cardiac Panel Stat unknown) (unknown) (no (unknown) (unknown) UA Complete (units (un known) date) [Urinalysis and unknown) Microscopic] Stat (unknown) (no (unknown) (unknown) Vital Signs - 8 (units (unknown) date) hr unknown) (unknown) (no (unknown) (unknown) Vital Signs (units (un known) date) unknown) (unknown) (no (unknown) (unknown) Vital signs: (units (u nknown) date) unknown) (unknown) (no (unknown) (unknown) WBC 8.6 (units (unkno wn) date) (4.5-11.0) X103/uL unknown) (unknown) (no (unknown) (unknown) XR chest 1V Stat (units (unknown) date) unknown) (unknown) (no (unknown) (unknown) [Embedded Image (units (unknown) date) Not Available] unknown) (unknown) (no (unknown) (unknown) admitted for (units (u nknown) date) atypical chest unknown) pain, low back pain and acute urinary retention and (unknown) (no (unknown) (unknown) alcohol intake: (units (unknown) date) former unknown) (unknown) (no (unknown) (unknown) and below (units (unkn own) date) unknown) (unknown) (no (unknown) (unknown) aspirin 81 mg (units ( unknown) date) Tablet,Delayed unknown) Release (Dr/Ec) (unknown) (no (unknown) (unknown) aspirin 81 mg (units ( unknown) date) tablet,delayed 81 unknown) mg PO DAILY #9 tabs 03/30/22 (unknown) (no (unknown) (unknown) atorvastatin 40 (units (unknown) date) mg tablet unknown) (Lipitor) 40 mg PO DAILY #90 tabs 03/30/22 (unknown) (no (unknown) (unknown) atorvastatin (units (u nknown) date) [Lipitor] 40 mg unknown) tablet (unknown) (no (unknown) (unknown) back in 1992. No (units (unknown) date) known drug unknown) allergies. He does use tobacco and smokes a (unknown) (no (unknown) (unknown) but a new urinary (units (unknown) date) retention with a L unknown) in his bladder he was discharged home on (unknown) (no (unknown) (unknown) capsule (units (unkno wn) date) unknown) (unknown) (no (unknown) (unknown) cough or (units (unkno wn) date) congestion. He unknown) denies any bladder or fecal incontinence. Patient (unknown) (no (unknown) (unknown) decreased range (units (unknown) date) of motion. unknown) Patient's gait is [antalgic/normal]. Rectal exam (unknown) (no (unknown) (unknown) does have low back (units (unknown) date) pain which unknown) radiates particularly down his left leg and states (unknown) (no (unknown) (unknown) down his legs. (units (unknown) date) Patient states the unknown) chest pain has been present for the last 4-6 (unknown) (no (unknown) (unknown) established with (units (unknown) date) a primary care. unknown) (unknown) (no (unknown) (unknown) extremities (units (un known) date) unknown) (unknown) (no (unknown) (unknown) fenofibrate (units (un known) date) micronized 134 mg unknown) 134 mg PO DAILY 11/01/20 11/01/20 (unknown) (no (unknown) (unknown) fenofibrate (units (un known) date) micronized 134 mg unknown) capsule (unknown) (no (unknown) (unknown) found to have (units (u nknown) date) stress test which unknown) showed old fixed infarct but nothing new an echo (unknown) (no (unknown) (unknown) guarding or (units (un known) date) rebound, rigidity, unknown) no mass (unknown) (no (unknown) (unknown) he has (units (unkno wn) date) paresthesias down unknown) his left legs. He states it is quite painful he states (unknown) (no (unknown) (unknown) he states it is (units (unknown) date) sort of across his unknown) chest. He denies radiation elsewhere but (unknown) (no (unknown) (unknown) hours. He states (units (unknown) date) no diaphoresis, no unknown) shortness of breath, no nausea or vomiting (unknown) (no (unknown) (unknown) household (units (unkn own) date) members: unknown) significant other (unknown) (no (unknown) (unknown) intact in the (units ( unknown) date) lower extremities. unknown) (unknown) (no (unknown) (unknown) intact (units (unkno wn) date) unknown) (unknown) (no (unknown) (unknown) is [normal (units (unk nown) date) sphincter unknown) tone/decreased tone/no tone/deferred or refused]. (unknown) (no (unknown) (unknown) losartan 25 mg (units (unknown) date) tablet 25 mg PO unknown) DAILY #90 tabs 03/30/22 (unknown) (no (unknown) (unknown) losartan 25 mg (units (unknown) date) tablet unknown) (unknown) (no (unknown) (unknown) metformin 500 mg (units (unknown) date) tablet 500 mg PO unknown) BID #180 tabs 03/30/22 (unknown) (no (unknown) (unknown) metformin 500 mg (units (unknown) date) tablet unknown) (unknown) (no (unknown) (unknown) metoprolol (units (unk nown) date) succinate 25 mg 25 unknown) mg PO DAILY #90 tabs 03/30/22 (unknown) (no (unknown) (unknown) metoprolol (units (unk nown) date) succinate 25 mg unknown) tablet extended release 24 hr (unknown) (no (unknown) (unknown) moist mucous (units (u nknown) date) membranes unknown) (unknown) (no (unknown) (unknown) naproxen sodium (units (unknown) date) 220 mg capsule 220 unknown) mg PO BID 03/28/22 03/28/22 (unknown) (no (unknown) (unknown) naproxen sodium (units (unknown) date) [Aleve] 220 mg unknown) Capsule (unknown) (no (unknown) (unknown) oxycodone 10 mg (units (unknown) date) and that was unknown) helpful. States his only surgeries or for his low (unknown) (no (unknown) (unknown) oxycodone 5 mg (units (unknown) date) tablet 5 mg PO unknown) Q8HR PRN Pain. #20 tabs 03/30/22 (unknown) (no (unknown) (unknown) oxycodone 5 mg (units (unknown) date) tablet unknown) (unknown) (no (unknown) (unknown) pantoprazole 40 (units (unknown) date) mg PO BID ##0 unknown) 11/01/20 (unknown) (no (unknown) (unknown) pantoprazole (units (u nknown) date) tablet unknown) (unknown) (no (unknown) (unknown) quarter to a 3rd (units (unknown) date) pack daily, unknown) occasional alcohol, no illicit. He has not (unknown) (no (unknown) (unknown) release (units (unkno wn) date) unknown) (unknown) (no (unknown) (unknown) sometimes he has (units (unknown) date) weakness in that unknown) leg but not currently. He denies fevers, cold (unknown) (no (unknown) (unknown) states he had (units ( unknown) date) aspirin, nitro unknown) sublingual x3 and morphine EN route with EMS and (unknown) (no (unknown) (unknown) states that he is (units (unknown) date) not any pain unknown) medication for his back but used to be on (unknown) (no (unknown) (unknown) tablet,extended (units (unknown) date) release 24 hr unknown) (unknown) (no (unknown) (unknown) tamsulosin 0.4 mg (units (unknown) date) capsule (Flomax) unknown) 0.4 mg PO BEDTIME #90 caps 03/30/22 (unknown) (no (unknown) (unknown) tamsulosin (units (unk nown) date) [Flomax] 0.4 mg unknown) Capsule (unknown) (no (unknown) (unknown) that he was (units (un known) date) restarted on his unknown) medications unclear if he is taking them daily (unknown) (no (unknown) (unknown) that it changed (units (unknown) date) nothing about his unknown) chest pain or his back pain. States this is (unknown) (no (unknown) (unknown) took it 4 weeks (units (unknown) date) ago. unknown) (unknown) (no (unknown) (unknown) very similar to (units (unknown) date) when he was here unknown) in March and admitted at that time he was (unknown) (no (unknown) (unknown) with EF of 40-55% (units (unknown) date) and a lumbar MRI unknown) which showed no cord compression or stenosis Result panel 592 (unknown) (no (unknown) (unknown) (no value) (units (unk nown) date) unknown) (unknown) (no (unknown) (unknown) (Aleve) (units (unkno wn) date) unknown) (unknown) (no (unknown) (unknown) 0.4 mg PO BEDTIME (units (unknown) date) Qty: 90 0RF unknown) (unknown) (no (unknown) (unknown) 04/30/22 04/30/22 (units (unknown) date) Range/Units unknown) (unknown) (no (unknown) (unknown) 04/30/22 19:01 (units (unknown) date) unknown) (unknown) (no (unknown) (unknown) 04/30/22 19:06 (units (unknown) date) unknown) (unknown) (no (unknown) (unknown) 04/30/22 19:10 (units (unknown) date) unknown) (unknown) (no (unknown) (unknown) 04/30/22 19:30 (units (unknown) date) unknown) (unknown) (no (unknown) (unknown) 04/30/22 19:39 (units (unknown) date) unknown) (unknown) (no (unknown) (unknown) 04/30/22 (units (unkno wn) date) unknown) (unknown) (no (unknown) (unknown) 134 mg PO DAILY (units (unknown) date) unknown) (unknown) (no (unknown) (unknown) 18:59 04/30/22 (units (unknown) date) unknown) (unknown) (no (unknown) (unknown) 19:00 (units (unkno wn) date) unknown) (unknown) (no (unknown) (unknown) 19:01 19:01 (units (un known) date) unknown) (unknown) (no (unknown) (unknown) 19:02 04/30/22 (units (unknown) date) unknown) (unknown) (no (unknown) (unknown) 220 mg PO BID (units ( unknown) date) unknown) (unknown) (no (unknown) (unknown) 25 mg PO DAILY (units (unknown) date) Qty: 90 0RF unknown) (unknown) (no (unknown) (unknown) 2847 (units (unkno wn) date) unknown) (unknown) (no (unknown) (unknown) 40 mg PO BID Qty: (units (unknown) date) 0 0RF unknown) (unknown) (no (unknown) (unknown) 40 mg PO DAILY (units (unknown) date) Qty: 90 0RF unknown) (unknown) (no (unknown) (unknown) 5 MG PO Q8HR As (units (unknown) date) Needed for Pain unknown) (unknown) (no (unknown) (unknown) 5 mg PO Q8HR PRN (units (unknown) date) (Reason: Pain.) unknown) Qty: 20 0RF (unknown) (no (unknown) (unknown) 500 mg PO BID (units ( unknown) date) Qty: 180 0RF unknown) (unknown) (no (unknown) (unknown) 81 mg PO DAILY (units (unknown) date) Qty: 9 0RF unknown) (unknown) (no (unknown) (unknown) ABDOMEN: Soft, (units (unknown) date) nontender. unknown) Normoactive bowel sounds all 4 quadrants. No (unknown) (no (unknown) (unknown) ALT 42 (<50) IU/L (units (unknown) date) unknown) (unknown) (no (unknown) (unknown) AST 49 (17-59) (units (unknown) date) IU/L unknown) (unknown) (no (unknown) (unknown) Age/Sex: 66 / M (units (unknown) date) unknown) (unknown) (no (unknown) (unknown) Albumin 3.9 (units (un known) date) (3.5-5.0) g/dL unknown) (unknown) (no (unknown) (unknown) Albumin/Globulin (units (unknown) date) Ratio 1.4 unknown) (1.0-2.8) (unknown) (no (unknown) (unknown) Alkaline (units (unkno wn) date) Phosphatase 100 unknown) (38-126) U/L (unknown) (no (unknown) (unknown) Allergies (units (unkn own) date) unknown) (unknown) (no (unknown) (unknown) Allergy/AdvReac (units (unknown) date) Type Severity unknown) Reaction Status Date / Time (unknown) (no (unknown) (unknown) Attestation: I (units (unknown) date) personally unknown) reviewed and interpreted this ECG as follows: (unknown) (no (unknown) (unknown) BACK: No (units (unkno wn) date) cervical, thoracic unknown) or lumbar vertebral point tenderness. Patient has (unknown) (no (unknown) (unknown) BNP [NT-proBNP (units (unknown) date) (BNP-Adult 18+)] unknown) Stat (unknown) (no (unknown) (unknown) BUN 7 L (9-20) (units (unknown) date) mg/dL unknown) (unknown) (no (unknown) (unknown) BUN/Creatinine (units (unknown) date) Ratio 10.6 (6-22) unknown) (unknown) (no (unknown) (unknown) Baso # (Auto) 200 (units (unknown) date) H (0-100) /uL unknown) (unknown) (no (unknown) (unknown) Baso % (Auto) 2.0 (units (unknown) date) (0-2) % unknown) (unknown) (no (unknown) (unknown) Blood Pressure (units (unknown) date) 98/68 98/68 unknown) (unknown) (no (unknown) (unknown) Blood Pressure (units (unknown) date) unknown) (unknown) (no (unknown) (unknown) CARDIOVASCULAR: (units (unknown) date) Regular rate and unknown) rhythm without murmurs, rubs or gallops. (unknown) (no (unknown) (unknown) CK-MB (CK-2) Rel (units (unknown) date) Index TNP unknown) (unknown) (no (unknown) (unknown) CK-MB (CK-2) TNP (units (unknown) date) unknown) (unknown) (no (unknown) (unknown) Calcium 8.1 L (units ( unknown) date) (8.4-10.2) mg/dL unknown) (unknown) (no (unknown) (unknown) Carbon Dioxide 17 (units (unknown) date) L (22-32) mmol/L unknown) (unknown) (no (unknown) (unknown) Chief Complaint: (units (unknown) date) Chest Pain unknown) (unknown) (no (unknown) (unknown) Chloride 104 (units (u nknown) date) (98-107) mmol/L unknown) (unknown) (no (unknown) (unknown) Complete Blood (units (unknown) date) Count AUTO DIFF unknown) Stat (unknown) (no (unknown) (unknown) Comprehensive (units ( unknown) date) Metabolic Panel unknown) Stat (unknown) (no (unknown) (unknown) Coronary artery (units (unknown) date) disease unknown) (unknown) (no (unknown) (unknown) Course (units (unkno wn) date) unknown) (unknown) (no (unknown) (unknown) Covid-19 + FLU (units (unknown) date) A/B + RSV - PCR unknown) Stat (unknown) (no (unknown) (unknown) Creatinine 0.66 (units (unknown) date) (0.66-1.25) mg/dL unknown) (unknown) (no (unknown) (unknown) : 1955 (units (unknown) date) Acct:[id number] unknown) (unknown) (no (unknown) (unknown) Date of Service: (units (unknown) date) 04/30/22 unknown) (unknown) (no (unknown) (unknown) Departure (units (unkn own) date) unknown) (unknown) (no (unknown) (unknown) Diabetes type 2, (units (unknown) date) uncontrolled unknown) (unknown) (no (unknown) (unknown) Discharge Plan (units (unknown) date) unknown) (unknown) (no (unknown) (unknown) Discontinued (units (u nknown) date) Medications unknown) (unknown) (no (unknown) (unknown) ECG Data (units (unkno wn) date) unknown) (unknown) (no (unknown) (unknown) ED Orders (units (unkn own) date) unknown) (unknown) (no (unknown) (unknown) EKG-12 Lead Stat (units (unknown) date) unknown) (unknown) (no (unknown) (unknown) ER Physician: (units ( unknown) date) Emma Stevens D.O. unknown) (unknown) (no (unknown) (unknown) ETOH [Ethanol (units ( unknown) date) (ETOH)] Stat unknown) (unknown) (no (unknown) (unknown) EXTREMITIES: (units (u nknown) date) Normal range of unknown) motion, no clubbing or edema. Neurovascularly (unknown) (no (unknown) (unknown) Elevated blood (units (unknown) date) alcohol level unknown) (unknown) (no (unknown) (unknown) Emergency Report (units (unknown) date) unknown) (unknown) (no (unknown) (unknown) Eos # (Auto) 300 (units (unknown) date) (0-450) /uL unknown) (unknown) (no (unknown) (unknown) Eos % (Auto) 3.5 (units (unknown) date) (2-4) % unknown) (unknown) (no (unknown) (unknown) Estimated GFR > (units (unknown) date) 60 (>60) mL/min unknown) (unknown) (no (unknown) (unknown) Exam Narrative: (units (unknown) date) unknown) (unknown) (no (unknown) (unknown) Exam (units (unkno wn) date) unknown) (unknown) (no (unknown) (unknown) Family History (units (unknown) date) (Reviewed 04/30/22 unknown) @ 19:35 by Emma Stevens DO) (unknown) (no (unknown) (unknown) Father (units (unknown) date) Lung cancer unknown) (unknown) (no (unknown) (unknown) Flomax and on his (units (unknown) date) diabetic unknown) medications and heart medications. Patient does note (unknown) (no (unknown) (unknown) GENERAL: Alert (units (unknown) date) and oriented x unknown) three, male in mild distress (unknown) (no (unknown) (unknown) : No CVA (units (unk nown) date) tenderness unknown) (unknown) (no (unknown) (unknown) General (units (unkno wn) date) unknown) (unknown) (no (unknown) (unknown) Globulin 2.8 (units (u nknown) date) (1.7-4.1) g/dL unknown) (unknown) (no (unknown) (unknown) Glucose 206 H (units ( unknown) date) (80-110) mg/dL unknown) (unknown) (no (unknown) (unknown) H/O heart artery (units (unknown) date) stent unknown) (unknown) (no (unknown) (unknown) HEENT: Head (units (un known) date) normocephalic, unknown) atraumatic, EOMI, pupils reactive, face symmetric, (unknown) (no (unknown) (unknown) HPI - Chest Pain (units (unknown) date) unknown) (unknown) (no (unknown) (unknown) HPI narrative: (units (unknown) date) unknown) (unknown) (no (unknown) (unknown) Hct 44.2 (41-53) (units (unknown) date) % unknown) (unknown) (no (unknown) (unknown) Hgb 15.4 (units (unkno wn) date) (13.5-17.5) g/dL unknown) (unknown) (no (unknown) (unknown) History of (units (unk nown) date) Present Illness unknown) (unknown) (no (unknown) (unknown) Home Medications (units (unknown) date) unknown) (unknown) (no (unknown) (unknown) Initial Vital (units ( unknown) date) Signs unknown) (unknown) (no (unknown) (unknown) Initial Vital (units ( unknown) date) Signs: unknown) (unknown) (no (unknown) (unknown) Interpretation: (units (unknown) date) unknown) (unknown) (no (unknown) (unknown) [facility] (units (unknown) date) [address] unknown) [place] [address] (unknown) (no (unknown) (unknown) Lab Data (units (unkno wn) date) unknown) (unknown) (no (unknown) (unknown) Lab Results (units (un known) date) unknown) (unknown) (no (unknown) (unknown) Label Comments: (units (unknown) date) unknown) (unknown) (no (unknown) (unknown) Labs: (units (unkno wn) date) unknown) (unknown) (no (unknown) (unknown) Limitations: no (units (unknown) date) limitations unknown) (unknown) (no (unknown) (unknown) Lipase 381 H (units (u nknown) date) (23-300) U/L unknown) (unknown) (no (unknown) (unknown) Lipase Stat (units (un known) date) unknown) (unknown) (no (unknown) (unknown) Lymph # (Auto) (units (unknown) date) 2900 (3350-5006) unknown) /uL (unknown) (no (unknown) (unknown) Lymph % (Auto) (units (unknown) date) 33.9 (25-40) % unknown) (unknown) (no (unknown) (unknown) MCH 30.3 (26-34) (units (unknown) date) PG unknown) (unknown) (no (unknown) (unknown) MCHC 34.9 (30-36) (units (unknown) date) % unknown) (unknown) (no (unknown) (unknown) MCV 86.9 (80-100) (units (unknown) date) fL unknown) (unknown) (no (unknown) (unknown) MDM - Chest Pain (units (unknown) date) unknown) (unknown) (no (unknown) (unknown) MDM Narrative (units ( unknown) date) unknown) (unknown) (no (unknown) (unknown) MRI at that time (units (unknown) date) which showed disc unknown) bulge but no stenosis or emergent changes. (unknown) (no (unknown) (unknown) Magnesium 1.6 (units ( unknown) date) (1.6-2.3) mg/dL unknown) (unknown) (no (unknown) (unknown) Magnesium Stat (units (unknown) date) unknown) (unknown) (no (unknown) (unknown) Medical History (units (unknown) date) (Reviewed 04/30/22 unknown) @ 19:35 by Emma Steevns DO) (unknown) (no (unknown) (unknown) Medical decision (units (unknown) date) making narrative: unknown) (unknown) (no (unknown) (unknown) Medication (units (unk nown) date) Instructions unknown) Recorded Confirmed (unknown) (no (unknown) (unknown) Medication (units (unk nown) date) Instructions unknown) Recorded (unknown) (no (unknown) (unknown) Miscellaneous,Doc (units (unknown) date) MD shaggy [Primary unknown) Care Provider] (unknown) (no (unknown) (unknown) Mode of arrival: (units (unknown) date) EMS unknown) (unknown) (no (unknown) (unknown) [place] # (Auto) 800 (units (unknown) date) (0-900) /uL unknown) (unknown) (no (unknown) (unknown) [place] % (Auto) 8.9 (units (unknown) date) (3-14) % unknown) (unknown) (no (unknown) (unknown) [facility] (units (unknown) date) history unknown unknown) (unknown) (no (unknown) (unknown) NECK: Supple, (units ( unknown) date) full range of unknown) motion (unknown) (no (unknown) (unknown) NEUROLOGICAL: (units ( unknown) date) Cranial nerves II unknown) through XII grossly intact. Moving all (unknown) (no (unknown) (unknown) Narrative (units (unkn own) date) unknown) (unknown) (no (unknown) (unknown) Neut # (Auto) (units ( unknown) date) 4500 (3364-4578) unknown) /uL (unknown) (no (unknown) (unknown) Neut % (Auto) (units ( unknown) date) 51.7 (50-75) % unknown) (unknown) (no (unknown) (unknown) No Action (units (unkn own) date) unknown) (unknown) (no (unknown) (unknown) No Known Drug (units ( unknown) date) Allergies Allergy unknown) Verified 10/31/20 23:10 (unknown) (no (unknown) (unknown) March as well (units (unknown) date) as low back pain unknown) and radicular symptoms. Patient had an lumbar (unknown) (no (unknown) (unknown) March. EKG does (units (unknown) date) show new ST unknown) depression, initial troponin is negative, patient (unknown) (no (unknown) (unknown) Ordered: (units (unkno wn) date) unknown) (unknown) (no (unknown) (unknown) Orders (units (unkno wn) date) unknown) (unknown) (no (unknown) (unknown) Oxycodone HCl (units ( unknown) date) (Oxycodone Ir 5 Mg unknown) Tablet) 10 mg PO NOW ONE (unknown) (no (unknown) (unknown) Oxygen Delivery (units (unknown) date) Method Room Air unknown) (unknown) (no (unknown) (unknown) Oxygen Delivery (units (unknown) date) Method unknown) (unknown) (no (unknown) (unknown) Patient History (units (unknown) date) unknown) (unknown) (no (unknown) (unknown) Patient's did have (units (unknown) date) stress testing at unknown) that time which had a fixed wall defect but (unknown) (no (unknown) (unknown) Patient: (units (o wn) date) Frank Chan MR#: unknown) [id number] (unknown) (no (unknown) (unknown) Plt Count 159 (units ( unknown) date) (150-400) X103/uL unknown) (unknown) (no (unknown) (unknown) Potassium 4.2 (units ( unknown) date) (3.4-5.1) mmol/L unknown) (unknown) (no (unknown) (unknown) Prescriptions: (units (unknown) date) unknown) (unknown) (no (unknown) (unknown) Previous Rx's (units ( unknown) date) unknown) (unknown) (no (unknown) (unknown) Pulse Oximetry 94 (units (unknown) date) unknown) (unknown) (no (unknown) (unknown) Pulse Oximetry 95 (units (unknown) date) 04/30/22 18:59 unknown) (unknown) (no (unknown) (unknown) Pulse Oximetry 97 (units (unknown) date) 95 unknown) (unknown) (no (unknown) (unknown) Pulse Rate 91 H (units (unknown) date) 04/30/22 18:59 unknown) (unknown) (no (unknown) (unknown) Pulse Rate 92 H (units (unknown) date) 91 H unknown) (unknown) (no (unknown) (unknown) Pulse Rate 93 H (units (unknown) date) unknown) (unknown) (no (unknown) (unknown) RBC 5.09 (units (unkno wn) date) (4.5-5.9) X106/uL unknown) (unknown) (no (unknown) (unknown) RDW 13.4 (units (unkno wn) date) (11.6-14.8) % unknown) (unknown) (no (unknown) (unknown) RESPIRATORY: (units (u nknown) date) Breath sounds unknown) equal bilaterally, no wheezes rales or rhonchi. (unknown) (no (unknown) (unknown) ROS Unobtainable: (units (unknown) date) All systems unknown) reviewed + are unremarkable except as noted in HPI (unknown) (no (unknown) (unknown) Referrals: (units (unk nown) date) unknown) (unknown) (no (unknown) (unknown) Related Data (units (u nknown) date) unknown) (unknown) (no (unknown) (unknown) Respiratory Rate (units (unknown) date) 12 unknown) (unknown) (no (unknown) (unknown) Respiratory Rate (units (unknown) date) 18 19 unknown) (unknown) (no (unknown) (unknown) Respiratory Rate (units (unknown) date) 19 04/30/22 18:59 unknown) (unknown) (no (unknown) (unknown) Result diagrams: (units (unknown) date) unknown) (unknown) (no (unknown) (unknown) Review of Systems (units (unknown) date) unknown) (unknown) (no (unknown) (unknown) SKIN: Warm, dry, (units (unknown) date) no petechiae, no unknown) rashes or lesions. (unknown) (no (unknown) (unknown) Signed By: (units (unk nown) date) unknown) (unknown) (no (unknown) (unknown) Sinus rhythm rate (units (unknown) date) 80 6p are 146 QRS unknown) of 106 and QTC of 464. No acute ST (unknown) (no (unknown) (unknown) Smoking Status: (units (unknown) date) Current every day unknown) smoker (unknown) (no (unknown) (unknown) Social History (units (unknown) date) (Reviewed 04/30/22 unknown) @ 19:35 by Emma Stevens DO) (unknown) (no (unknown) (unknown) Sodium 138 (units (unk nown) date) (137-145) mmol/L unknown) (unknown) (no (unknown) (unknown) Source: patient, (units (unknown) date) EMS, RN notes unknown) reviewed and old records reviewed (unknown) (no (unknown) (unknown) Stated Complaint: (units (unknown) date) Chest pain unknown) (unknown) (no (unknown) (unknown) Stop: 04/30/22 (units (unknown) date) 19:40 unknown) (unknown) (no (unknown) (unknown) Substance Use (units ( unknown) date) Type: does not use unknown) (unknown) (no (unknown) (unknown) Surgical History (units (unknown) date) (Reviewed 04/30/22 unknown) @ 19:35 by Emma Stevens DO) (unknown) (no (unknown) (unknown) Temperature 98.3 (units (unknown) date) F unknown) (unknown) (no (unknown) (unknown) Temperature (units (un known) date) unknown) (unknown) (no (unknown) (unknown) This is a (units (unkn own) date) 66-year-old male unknown) who presents with recurrent chest pain similar to (unknown) (no (unknown) (unknown) This is a (units (unkn own) date) 66-year-old male unknown) with complaint of chest, low back pain that radiates (unknown) (no (unknown) (unknown) Time Seen by (units (u nknown) date) Provider: 04/30/22 unknown) 18:56 (unknown) (no (unknown) (unknown) Total Bilirubin (units (unknown) date) 1.1 (0.2-1.3) unknown) mg/dL (unknown) (no (unknown) (unknown) Total Creatine (units (unknown) date) Kinase 44 L unknown) (55-170) U/L (unknown) (no (unknown) (unknown) Total Protein 6.7 (units (unknown) date) (6.3-8.2) g/dL unknown) (unknown) (no (unknown) (unknown) Troponin + CK (units ( unknown) date) Cardiac Panel Stat unknown) (unknown) (no (unknown) (unknown) Troponin I < (units (u nknown) date) 0.012 (0.01-0.034) unknown) ng/mL (unknown) (no (unknown) (unknown) UA Complete (units (un known) date) [Urinalysis and unknown) Microscopic] Stat (unknown) (no (unknown) (unknown) Vital Signs - 8 (units (unknown) date) hr unknown) (unknown) (no (unknown) (unknown) Vital Signs (units (un known) date) unknown) (unknown) (no (unknown) (unknown) Vital signs: (units (u nknown) date) unknown) (unknown) (no (unknown) (unknown) WBC 8.6 (units (unkno wn) date) (4.5-11.0) X103/uL unknown) (unknown) (no (unknown) (unknown) XR chest 1V Stat (units (unknown) date) unknown) (unknown) (no (unknown) (unknown) [Embedded Image (units (unknown) date) Not Available] unknown) (unknown) (no (unknown) (unknown) [normal sphincter (units (unknown) date) tone/decreased unknown) tone/no tone/deferred or refused]. Patient has (unknown) (no (unknown) (unknown) admitted for (units (u nknown) date) atypical chest unknown) pain, low back pain and acute urinary retention and (unknown) (no (unknown) (unknown) alcohol intake: (units (unknown) date) former unknown) (unknown) (no (unknown) (unknown) and below (units (unkn own) date) unknown) (unknown) (no (unknown) (unknown) are 2/4 and lower (units (unknown) date) extremities. unknown) Dorsalis pedis and tibialis pulses are 2+ and (unknown) (no (unknown) (unknown) aspirin 81 mg (units ( unknown) date) Tablet,Delayed unknown) Release (Dr/Ec) (unknown) (no (unknown) (unknown) aspirin 81 mg (units ( unknown) date) tablet,delayed 81 unknown) mg PO DAILY #9 tabs 03/30/22 (unknown) (no (unknown) (unknown) atorvastatin 40 (units (unknown) date) mg tablet unknown) (Lipitor) 40 mg PO DAILY #90 tabs 03/30/22 (unknown) (no (unknown) (unknown) atorvastatin (units (u nknown) date) [Lipitor] 40 mg unknown) tablet (unknown) (no (unknown) (unknown) back in 1992. No (units (unknown) date) known drug unknown) allergies. He does use tobacco and smokes a (unknown) (no (unknown) (unknown) but a new urinary (units (unknown) date) retention with a L unknown) in his bladder he was discharged home on (unknown) (no (unknown) (unknown) capsule (units (unkno wn) date) unknown) (unknown) (no (unknown) (unknown) changed from (units (u nknown) date) - no ST unknown) elevation. (unknown) (no (unknown) (unknown) cough or (units (unkno wn) date) congestion. He unknown) denies any bladder or fecal incontinence. Patient (unknown) (no (unknown) (unknown) decreased range (units (unknown) date) of motion. Patient unknown) has pain and discomfort particularly in the (unknown) (no (unknown) (unknown) difficulty with (units (unknown) date) dorsiflexion on unknown) the left foot. He endorses difficulty with (unknown) (no (unknown) (unknown) does have low back (units (unknown) date) pain which unknown) radiates particularly down his left leg and states (unknown) (no (unknown) (unknown) down his legs. (units (unknown) date) Patient states the unknown) chest pain has been present for the last 4-6 (unknown) (no (unknown) (unknown) elevation. (units (unk nown) date) T-waves are unknown) inverted in lateral leads V3 through V 5 which appears (unknown) (no (unknown) (unknown) established with (units (unknown) date) a primary care. unknown) (unknown) (no (unknown) (unknown) exam does show (units (unknown) date) radicular changes unknown) but is inconsistent throughout exam. (unknown) (no (unknown) (unknown) extremities (units (un known) date) unknown) (unknown) (no (unknown) (unknown) fenofibrate (units (un known) date) micronized 134 mg unknown) 134 mg PO DAILY 11/01/20 11/01/20 (unknown) (no (unknown) (unknown) fenofibrate (units (un known) date) micronized 134 mg unknown) capsule (unknown) (no (unknown) (unknown) found to have (units (u nknown) date) stress test which unknown) showed old fixed infarct but nothing new an echo (unknown) (no (unknown) (unknown) guarding or (units (un known) date) rebound, rigidity, unknown) no mass (unknown) (no (unknown) (unknown) he has (units (unkno wn) date) paresthesias down unknown) his left legs. He states it is quite painful he states (unknown) (no (unknown) (unknown) he states it is (units (unknown) date) sort of across his unknown) chest. He denies radiation elsewhere but (unknown) (no (unknown) (unknown) his medications (units (unknown) date) regularly. He unknown) states this feels very similar to his visit in (unknown) (no (unknown) (unknown) hours. He states (units (unknown) date) no diaphoresis, no unknown) shortness of breath, no nausea or vomiting (unknown) (no (unknown) (unknown) household (units (unkn own) date) members: unknown) significant other (unknown) (no (unknown) (unknown) intact (units (unkno wn) date) unknown) (unknown) (no (unknown) (unknown) left lower (units (unk nown) date) abdomen. Patient's unknown) gait is not tested initially. Rectal exam is (unknown) (no (unknown) (unknown) losartan 25 mg (units (unknown) date) tablet 25 mg PO unknown) DAILY #90 tabs 03/30/22 (unknown) (no (unknown) (unknown) losartan 25 mg (units (unknown) date) tablet unknown) (unknown) (no (unknown) (unknown) lower (units (unkno wn) date) extremities. unknown) Sensation is intact in the lower extremities. (unknown) (no (unknown) (unknown) metformin 500 mg (units (unknown) date) tablet 500 mg PO unknown) BID #180 tabs 03/30/22 (unknown) (no (unknown) (unknown) metformin 500 mg (units (unknown) date) tablet unknown) (unknown) (no (unknown) (unknown) metoprolol (units (unk nown) date) succinate 25 mg 25 unknown) mg PO DAILY #90 tabs 03/30/22 (unknown) (no (unknown) (unknown) metoprolol (units (unk nown) date) succinate 25 mg unknown) tablet extended release 24 hr (unknown) (no (unknown) (unknown) moist mucous (units (u nknown) date) membranes unknown) (unknown) (no (unknown) (unknown) movement of the (units (unknown) date) left leg but can unknown) adjust himself in the bed without issue. DTRs (unknown) (no (unknown) (unknown) naproxen sodium (units (unknown) date) 220 mg capsule 220 unknown) mg PO BID 03/28/22 03/28/22 (unknown) (no (unknown) (unknown) naproxen sodium (units (unknown) date) [Aleve] 220 mg unknown) Capsule (unknown) (no (unknown) (unknown) no other ischemic (units (unknown) date) changes and an EF unknown) of 40%. Unclear if patient has been taking (unknown) (no (unknown) (unknown) oxycodone 10 mg (units (unknown) date) and that was unknown) helpful. States his only surgeries or for his low (unknown) (no (unknown) (unknown) oxycodone 5 mg (units (unknown) date) tablet 5 mg PO unknown) Q8HR PRN Pain. #20 tabs 03/30/22 (unknown) (no (unknown) (unknown) oxycodone 5 mg (units (unknown) date) tablet unknown) (unknown) (no (unknown) (unknown) pantoprazole 40 (units (unknown) date) mg PO BID ##0 unknown) 11/01/20 (unknown) (no (unknown) (unknown) pantoprazole (units (u nknown) date) tablet unknown) (unknown) (no (unknown) (unknown) quarter to a 3rd (units (unknown) date) pack daily, unknown) occasional alcohol, no illicit. He has not (unknown) (no (unknown) (unknown) release (units (unkno wn) date) unknown) (unknown) (no (unknown) (unknown) sometimes he has (units (unknown) date) weakness in that unknown) leg but not currently. He denies fevers, cold (unknown) (no (unknown) (unknown) states he had (units ( unknown) date) aspirin, nitro unknown) sublingual x3 and morphine EN route with EMS and (unknown) (no (unknown) (unknown) states that he is (units (unknown) date) not any pain unknown) medication for his back but used to be on (unknown) (no (unknown) (unknown) tablet,extended (units (unknown) date) release 24 hr unknown) (unknown) (no (unknown) (unknown) tamsulosin 0.4 mg (units (unknown) date) capsule (Flomax) unknown) 0.4 mg PO BEDTIME #90 caps 03/30/22 (unknown) (no (unknown) (unknown) tamsulosin (units (unk nown) date) [Flomax] 0.4 mg unknown) Capsule (unknown) (no (unknown) (unknown) that he was (units (un known) date) restarted on his unknown) medications unclear if he is taking them daily (unknown) (no (unknown) (unknown) that it changed (units (unknown) date) nothing about his unknown) chest pain or his back pain. States this is (unknown) (no (unknown) (unknown) took it 4 weeks (units (unknown) date) ago. unknown) (unknown) (no (unknown) (unknown) very similar to (units (unknown) date) when he was here unknown) in March and admitted at that time he was (unknown) (no (unknown) (unknown) with EF of 40-55% (units (unknown) date) and a lumbar MRI unknown) which showed no cord compression or stenosis Result panel 593 (unknown) (no date) (unknown) (unknown) 133 mg/dl (unkn own) (unknown) (no date) (unknown) (unknown) 133 mg/dl (unkn own) Result panel 594 (unknown) (no date) (unknown) (unknown) <=1.005 (units (unkn own) unknown) (unknown) (no date) (unknown) (unknown) 0.2 e.u./dl (unkn own) (unknown) (no date) (unknown) (unknown) 1 g/dl (unkn own) (unknown) (no date) (unknown) (unknown) 5.5 (units (unkn own) unknown) (unknown) (no date) (unknown) (unknown) CLEAR (units (unkn own) unknown) (unknown) (no date) (unknown) (unknown) NEGATIVE (units (unkn own) unknown) (unknown) (no date) (unknown) (unknown) YELLOW (units (unkn own) unknown) (unknown) (no date) (unknown) (unknown) YELLOW (units (unkn own) unknown) Result panel 595 (unknown) (no date) (unknown) (unknown) 246 pg/ml (unkn own) (unknown) (no date) (unknown) (unknown) 246 pg/ml (unkn own) Result panel 596 (unknown) (no (unknown) (unknown) (no value) (units (unk nown) date) unknown) (unknown) (no (unknown) (unknown) (Aleve) (units (unkno wn) date) unknown) (unknown) (no (unknown) (unknown) 0.4 mg PO BEDTIME (units (unknown) date) Qty: 90 0RF unknown) (unknown) (no (unknown) (unknown) 04/30/22 04/30/22 (units (unknown) date) 04/30/22 unknown) Range/Units (unknown) (no (unknown) (unknown) 04/30/22 19:01 (units (unknown) date) unknown) (unknown) (no (unknown) (unknown) 04/30/22 19:06 (units (unknown) date) unknown) (unknown) (no (unknown) (unknown) 04/30/22 19:10 (units (unknown) date) unknown) (unknown) (no (unknown) (unknown) 04/30/22 19:30 (units (unknown) date) unknown) (unknown) (no (unknown) (unknown) 04/30/22 21:00 (units (unknown) date) unknown) (unknown) (no (unknown) (unknown) 04/30/22 (units (unkno wn) date) unknown) (unknown) (no (unknown) (unknown) 134 mg PO DAILY (units (unknown) date) unknown) (unknown) (no (unknown) (unknown) 18:59 04/30/22 (units (unknown) date) unknown) (unknown) (no (unknown) (unknown) 19:00 (units (unkno wn) date) unknown) (unknown) (no (unknown) (unknown) 19:01 19:01 19:01 (units (unknown) date) unknown) (unknown) (no (unknown) (unknown) 19:02 04/30/22 (units (unknown) date) unknown) (unknown) (no (unknown) (unknown) 220 mg PO BID (units ( unknown) date) unknown) (unknown) (no (unknown) (unknown) 25 mg PO DAILY (units (unknown) date) Qty: 90 0RF unknown) (unknown) (no (unknown) (unknown) 2847 (units (unkno wn) date) unknown) (unknown) (no (unknown) (unknown) 40 mg PO BID Qty: (units (unknown) date) 0 0RF unknown) (unknown) (no (unknown) (unknown) 40 mg PO DAILY (units (unknown) date) Qty: 90 0RF unknown) (unknown) (no (unknown) (unknown) 5 MG PO Q8HR As (units (unknown) date) Needed for Pain unknown) (unknown) (no (unknown) (unknown) 5 mg PO Q8HR PRN (units (unknown) date) (Reason: Pain.) unknown) Qty: 20 0RF (unknown) (no (unknown) (unknown) 500 mg PO BID (units ( unknown) date) Qty: 180 0RF unknown) (unknown) (no (unknown) (unknown) 81 mg PO DAILY (units (unknown) date) Qty: 9 0RF unknown) (unknown) (no (unknown) (unknown) ABDOMEN: Soft, (units (unknown) date) nontender. unknown) Normoactive bowel sounds all 4 quadrants. No (unknown) (no (unknown) (unknown) ALT 42 (<50) IU/L (units (unknown) date) unknown) (unknown) (no (unknown) (unknown) AST 49 (17-59) (units (unknown) date) IU/L unknown) (unknown) (no (unknown) (unknown) Age/Sex: 66 / M (units (unknown) date) unknown) (unknown) (no (unknown) (unknown) Albumin 3.9 (units (un known) date) (3.5-5.0) g/dL unknown) (unknown) (no (unknown) (unknown) Albumin/Globulin (units (unknown) date) Ratio 1.4 unknown) (1.0-2.8) (unknown) (no (unknown) (unknown) Alkaline (units (unkno wn) date) Phosphatase 100 unknown) (38-126) U/L (unknown) (no (unknown) (unknown) Allergies (units (unkn own) date) unknown) (unknown) (no (unknown) (unknown) Allergy/AdvReac (units (unknown) date) Type Severity unknown) Reaction Status Date / Time (unknown) (no (unknown) (unknown) Attestation: I (units (unknown) date) personally unknown) reviewed and interpreted this ECG as follows: (unknown) (no (unknown) (unknown) BACK: No (units (unkno wn) date) cervical, thoracic unknown) or lumbar vertebral point tenderness. Patient has (unknown) (no (unknown) (unknown) BNP [NT-proBNP (units (unknown) date) (BNP-Adult 18+)] unknown) Stat (unknown) (no (unknown) (unknown) BUN 7 L (9-20) (units (unknown) date) mg/dL unknown) (unknown) (no (unknown) (unknown) BUN/Creatinine (units (unknown) date) Ratio 10.6 (6-22) unknown) (unknown) (no (unknown) (unknown) Baso # (Auto) 200 (units (unknown) date) H (0-100) /uL unknown) (unknown) (no (unknown) (unknown) Baso % (Auto) 2.0 (units (unknown) date) (0-2) % unknown) (unknown) (no (unknown) (unknown) Blood Pressure (units (unknown) date) 98/68 98/68 unknown) (unknown) (no (unknown) (unknown) Blood Pressure (units (unknown) date) unknown) (unknown) (no (unknown) (unknown) CARDIOVASCULAR: (units (unknown) date) Regular rate and unknown) rhythm without murmurs, rubs or gallops. (unknown) (no (unknown) (unknown) CK-MB (CK-2) Rel (units (unknown) date) Index TNP unknown) (unknown) (no (unknown) (unknown) CK-MB (CK-2) TNP (units (unknown) date) unknown) (unknown) (no (unknown) (unknown) Calcium 8.1 L (units ( unknown) date) (8.4-10.2) mg/dL unknown) (unknown) (no (unknown) (unknown) Carbon Dioxide 17 (units (unknown) date) L (22-32) mmol/L unknown) (unknown) (no (unknown) (unknown) Chief Complaint: (units (unknown) date) Chest Pain unknown) (unknown) (no (unknown) (unknown) Chloride 104 (units (u nknown) date) (98-107) mmol/L unknown) (unknown) (no (unknown) (unknown) Complete Blood (units (unknown) date) Count AUTO DIFF unknown) Stat (unknown) (no (unknown) (unknown) Comprehensive (units ( unknown) date) Metabolic Panel unknown) Stat (unknown) (no (unknown) (unknown) Consultation #1: (units (unknown) date) unknown) (unknown) (no (unknown) (unknown) Consultations (units ( unknown) date) unknown) (unknown) (no (unknown) (unknown) Coronary artery (units (unknown) date) disease unknown) (unknown) (no (unknown) (unknown) Course (units (unkno wn) date) unknown) (unknown) (no (unknown) (unknown) Covid-19 + FLU (units (unknown) date) A/B + RSV - PCR unknown) Stat (unknown) (no (unknown) (unknown) Creatinine 0.66 (units (unknown) date) (0.66-1.25) mg/dL unknown) (unknown) (no (unknown) (unknown) : 1955 (units (unknown) date) Acct:[id number] unknown) (unknown) (no (unknown) (unknown) Date of Service: (units (unknown) date) 04/30/22 unknown) (unknown) (no (unknown) (unknown) Departure (units (unkn own) date) unknown) (unknown) (no (unknown) (unknown) Diabetes type 2, (units (unknown) date) uncontrolled unknown) (unknown) (no (unknown) (unknown) Discharge Plan (units (unknown) date) unknown) (unknown) (no (unknown) (unknown) Discontinued (units (u nknown) date) Medications unknown) (unknown) (no (unknown) (unknown) Documented By: (units (unknown) date) JESÚS unknown) (unknown) (no (unknown) (unknown) Dr. John, (units (unkno wn) date) orthopedic unknown) surgery. Reviewed patient's MRI from March 29, 2022 his (unknown) (no (unknown) (unknown) ECG Data (units (unkno wn) date) unknown) (unknown) (no (unknown) (unknown) ED Orders (units (unkn own) date) unknown) (unknown) (no (unknown) (unknown) EKG-12 Lead Stat (units (unknown) date) unknown) (unknown) (no (unknown) (unknown) ER Physician: (units ( unknown) date) Emma Stevens D.O. unknown) (unknown) (no (unknown) (unknown) ETOH [Ethanol (units ( unknown) date) (ETOH)] Stat unknown) (unknown) (no (unknown) (unknown) EXTREMITIES: (units (u nknown) date) Normal range of unknown) motion, no clubbing or edema. Neurovascularly (unknown) (no (unknown) (unknown) Elevated blood (units (unknown) date) alcohol level unknown) (unknown) (no (unknown) (unknown) Emergency Report (units (unknown) date) unknown) (unknown) (no (unknown) (unknown) Eos # (Auto) 300 (units (unknown) date) (0-450) /uL unknown) (unknown) (no (unknown) (unknown) Eos % (Auto) 3.5 (units (unknown) date) (2-4) % unknown) (unknown) (no (unknown) (unknown) Estimated GFR > (units (unknown) date) 60 (>60) mL/min unknown) (unknown) (no (unknown) (unknown) Ethyl Alcohol 133 (units (unknown) date) H ( - 10) mg/dL unknown) (unknown) (no (unknown) (unknown) Exam Narrative: (units (unknown) date) unknown) (unknown) (no (unknown) (unknown) Exam (units (unkno wn) date) unknown) (unknown) (no (unknown) (unknown) Family History (units (unknown) date) (Reviewed 04/30/22 unknown) @ 19:35 by Emma Stevens DO) (unknown) (no (unknown) (unknown) Father (units (unknown) date) Lung cancer unknown) (unknown) (no (unknown) (unknown) Flomax and on his (units (unknown) date) diabetic unknown) medications and heart medications. Patient does note (unknown) (no (unknown) (unknown) GENERAL: Alert (units (unknown) date) and oriented x unknown) three, male in mild distress (unknown) (no (unknown) (unknown) : No CVA (units (unk nown) date) tenderness unknown) (unknown) (no (unknown) (unknown) General (units (unkno wn) date) unknown) (unknown) (no (unknown) (unknown) Globulin 2.8 (units (u nknown) date) (1.7-4.1) g/dL unknown) (unknown) (no (unknown) (unknown) Glucose 206 H (units ( unknown) date) (80-110) mg/dL unknown) (unknown) (no (unknown) (unknown) H/O heart artery (units (unknown) date) stent unknown) (unknown) (no (unknown) (unknown) HEENT: Head (units (un known) date) normocephalic, unknown) atraumatic, EOMI, pupils reactive, face symmetric, (unknown) (no (unknown) (unknown) HPI - Chest Pain (units (unknown) date) unknown) (unknown) (no (unknown) (unknown) HPI narrative: (units (unknown) date) unknown) (unknown) (no (unknown) (unknown) Hct 44.2 (41-53) (units (unknown) date) % unknown) (unknown) (no (unknown) (unknown) Hgb 15.4 (units (unkno wn) date) (13.5-17.5) g/dL unknown) (unknown) (no (unknown) (unknown) History of (units (unk nown) date) Present Illness unknown) (unknown) (no (unknown) (unknown) Home Medications (units (unknown) date) unknown) (unknown) (no (unknown) (unknown) Initial Vital (units ( unknown) date) Signs unknown) (unknown) (no (unknown) (unknown) Initial Vital (units ( unknown) date) Signs: unknown) (unknown) (no (unknown) (unknown) Interpretation: (units (unknown) date) unknown) (unknown) (no (unknown) (unknown) [facility] (units (unknown) date) [address] [place] [address] unknown) [place] [address] (unknown) (no (unknown) (unknown) Lab Data (units (unkno wn) date) unknown) (unknown) (no (unknown) (unknown) Lab Results (units (un known) date) unknown) (unknown) (no (unknown) (unknown) Label Comments: (units (unknown) date) unknown) (unknown) (no (unknown) (unknown) Labs: (units (unkno wn) date) unknown) (unknown) (no (unknown) (unknown) Last Admin: (units (un known) date) 04/30/22 20:00 unknown) Dose: 10 mg (unknown) (no (unknown) (unknown) Limitations: no (units (unknown) date) limitations unknown) (unknown) (no (unknown) (unknown) Lipase 381 H (units (u nknown) date) (23-300) U/L unknown) (unknown) (no (unknown) (unknown) Lipase Stat (units (un known) date) unknown) (unknown) (no (unknown) (unknown) Lymph # (Auto) (units (unknown) date) 2900 (6808-2624) unknown) /uL (unknown) (no (unknown) (unknown) Lymph % (Auto) (units (unknown) date) 33.9 (25-40) % unknown) (unknown) (no (unknown) (unknown) MCH 30.3 (26-34) (units (unknown) date) PG unknown) (unknown) (no (unknown) (unknown) MCHC 34.9 (30-36) (units (unknown) date) % unknown) (unknown) (no (unknown) (unknown) MCV 86.9 (80-100) (units (unknown) date) fL unknown) (unknown) (no (unknown) (unknown) MDM - Chest Pain (units (unknown) date) unknown) (unknown) (no (unknown) (unknown) MDM Narrative (units ( unknown) date) unknown) (unknown) (no (unknown) (unknown) MRI at that time (units (unknown) date) which showed disc unknown) bulge but no stenosis or emergent changes. (unknown) (no (unknown) (unknown) Magnesium 1.6 (units ( unknown) date) (1.6-2.3) mg/dL unknown) (unknown) (no (unknown) (unknown) Magnesium Stat (units (unknown) date) unknown) (unknown) (no (unknown) (unknown) Medical History (units (unknown) date) (Reviewed 04/30/22 unknown) @ 19:35 by Emma Stevens DO) (unknown) (no (unknown) (unknown) Medical decision (units (unknown) date) making narrative: unknown) (unknown) (no (unknown) (unknown) Medication (units (unk nown) date) Instructions unknown) Recorded Confirmed (unknown) (no (unknown) (unknown) Medication (units (unk nown) date) Instructions unknown) Recorded (unknown) (no (unknown) (unknown) Miscellaneous,Doc (units (unknown) date) MD shaggy [Primary unknown) Care Provider] (unknown) (no (unknown) (unknown) Mode of arrival: (units (unknown) date) EMS unknown) (unknown) (no (unknown) (unknown) [place] # (Auto) 800 (units (unknown) date) (0-900) /uL unknown) (unknown) (no (unknown) (unknown) [place] % (Auto) 8.9 (units (unknown) date) (3-14) % unknown) (unknown) (no (unknown) (unknown) [facility] (units (unknown) date) history unknown unknown) (unknown) (no (unknown) (unknown) NECK: Supple, (units ( unknown) date) full range of unknown) motion (unknown) (no (unknown) (unknown) NEUROLOGICAL: (units ( unknown) date) Cranial nerves II unknown) through XII grossly intact. Moving all (unknown) (no (unknown) (unknown) Narrative (units (unkn own) date) unknown) (unknown) (no (unknown) (unknown) Neut # (Auto) (units ( unknown) date) 4500 (1160-3925) unknown) /uL (unknown) (no (unknown) (unknown) Neut % (Auto) (units ( unknown) date) 51.7 (50-75) % unknown) (unknown) (no (unknown) (unknown) No Action (units (unkn own) date) unknown) (unknown) (no (unknown) (unknown) No Known Drug (units ( unknown) date) Allergies Allergy unknown) Verified 10/31/20 23:10 (unknown) (no (unknown) (unknown) March as well (units (unknown) date) as low back pain unknown) and radicular symptoms. Patient had an lumbar (unknown) (no (unknown) (unknown) March. EKG does (units (unknown) date) show new ST unknown) depression, initial troponin is negative, patient (unknown) (no (unknown) (unknown) Ordered: (units (o wn) date) unknown) (unknown) (no (unknown) (unknown) Orders (units (unkno wn) date) unknown) (unknown) (no (unknown) (unknown) Oxycodone HCl (units ( unknown) date) (Oxycodone Ir 5 Mg unknown) Tablet) 10 mg PO NOW ONE (unknown) (no (unknown) (unknown) Oxygen Delivery (units (unknown) date) Method Room Air unknown) (unknown) (no (unknown) (unknown) Oxygen Delivery (units (unknown) date) Method unknown) (unknown) (no (unknown) (unknown) Patient History (units (unknown) date) unknown) (unknown) (no (unknown) (unknown) Patient's did have (units (unknown) date) stress testing at unknown) that time which had a fixed wall defect but (unknown) (no (unknown) (unknown) Patient: (units (unkno wn) date) Frank Chan MR#: unknown) [id number] (unknown) (no (unknown) (unknown) Plt Count 159 (units ( unknown) date) (150-400) X103/uL unknown) (unknown) (no (unknown) (unknown) Potassium 4.2 (units ( unknown) date) (3.4-5.1) mmol/L unknown) (unknown) (no (unknown) (unknown) Prescriptions: (units (unknown) date) unknown) (unknown) (no (unknown) (unknown) Previous Rx's (units ( unknown) date) unknown) (unknown) (no (unknown) (unknown) Pulse Oximetry 94 (units (unknown) date) unknown) (unknown) (no (unknown) (unknown) Pulse Oximetry 95 (units (unknown) date) 04/30/22 18:59 unknown) (unknown) (no (unknown) (unknown) Pulse Oximetry 97 (units (unknown) date) 95 unknown) (unknown) (no (unknown) (unknown) Pulse Rate 91 H (units (unknown) date) 04/30/22 18:59 unknown) (unknown) (no (unknown) (unknown) Pulse Rate 92 H (units (unknown) date) 91 H unknown) (unknown) (no (unknown) (unknown) Pulse Rate 93 H (units (unknown) date) unknown) (unknown) (no (unknown) (unknown) RBC 5.09 (units (unkno wn) date) (4.5-5.9) X106/uL unknown) (unknown) (no (unknown) (unknown) RDW 13.4 (units (unkno wn) date) (11.6-14.8) % unknown) (unknown) (no (unknown) (unknown) RESPIRATORY: (units (u nknown) date) Breath sounds unknown) equal bilaterally, no wheezes rales or rhonchi. (unknown) (no (unknown) (unknown) ROS Unobtainable: (units (unknown) date) All systems unknown) reviewed + are unremarkable except as noted in HPI (unknown) (no (unknown) (unknown) Referrals: (units (unk nown) date) unknown) (unknown) (no (unknown) (unknown) Related Data (units (u nknown) date) unknown) (unknown) (no (unknown) (unknown) Respiratory Rate (units (unknown) date) 12 unknown) (unknown) (no (unknown) (unknown) Respiratory Rate (units (unknown) date) 18 19 unknown) (unknown) (no (unknown) (unknown) Respiratory Rate (units (unknown) date) 19 04/30/22 18:59 unknown) (unknown) (no (unknown) (unknown) Result diagrams: (units (unknown) date) unknown) (unknown) (no (unknown) (unknown) Review of Systems (units (unknown) date) unknown) (unknown) (no (unknown) (unknown) SKIN: Warm, dry, (units (unknown) date) no petechiae, no unknown) rashes or lesions. (unknown) (no (unknown) (unknown) Signed By: (units (unk nown) date) unknown) (unknown) (no (unknown) (unknown) Sinus rhythm rate (units (unknown) date) 80 6p are 146 QRS unknown) of 106 and QTC of 464. No acute ST (unknown) (no (unknown) (unknown) Smoking Status: (units (unknown) date) Current every day unknown) smoker (unknown) (no (unknown) (unknown) Social History (units (unknown) date) (Reviewed 04/30/22 unknown) @ 19:35 by Emma Stevens DO) (unknown) (no (unknown) (unknown) Sodium 138 (units (unk nown) date) (137-145) mmol/L unknown) (unknown) (no (unknown) (unknown) Source: patient, (units (unknown) date) EMS, RN notes unknown) reviewed and old records reviewed (unknown) (no (unknown) (unknown) Stated Complaint: (units (unknown) date) Chest pain unknown) (unknown) (no (unknown) (unknown) Stop: 04/30/22 (units (unknown) date) 19:40 unknown) (unknown) (no (unknown) (unknown) Substance Use (units ( unknown) date) Type: does not use unknown) (unknown) (no (unknown) (unknown) Surgical History (units (unknown) date) (Reviewed 04/30/22 unknown) @ 19:35 by Emma Stevens DO) (unknown) (no (unknown) (unknown) Temperature 98.3 (units (unknown) date) F unknown) (unknown) (no (unknown) (unknown) Temperature (units (un known) date) unknown) (unknown) (no (unknown) (unknown) This is a (units (unkn own) date) 66-year-old male unknown) who presents with recurrent chest pain similar to (unknown) (no (unknown) (unknown) This is a (units (unkn own) date) 66-year-old male unknown) with complaint of chest, low back pain that radiates (unknown) (no (unknown) (unknown) Time Seen by (units (u nknown) date) Provider: 04/30/22 unknown) 18:56 (unknown) (no (unknown) (unknown) Time: 20:03 (units (un known) date) unknown) (unknown) (no (unknown) (unknown) Total Bilirubin (units (unknown) date) 1.1 (0.2-1.3) unknown) mg/dL (unknown) (no (unknown) (unknown) Total Creatine (units (unknown) date) Kinase 44 L unknown) (55-170) U/L (unknown) (no (unknown) (unknown) Total Protein 6.7 (units (unknown) date) (6.3-8.2) g/dL unknown) (unknown) (no (unknown) (unknown) Trop I [Troponin (units (unknown) date) I] Stat unknown) (unknown) (no (unknown) (unknown) Troponin + CK (units ( unknown) date) Cardiac Panel Stat unknown) (unknown) (no (unknown) (unknown) Troponin I < (units (u nknown) date) 0.012 (0.01-0.034) unknown) ng/mL (unknown) (no (unknown) (unknown) UA Complete (units (un known) date) [Urinalysis and unknown) Microscopic] Stat (unknown) (no (unknown) (unknown) Vital Signs - 8 (units (unknown) date) hr unknown) (unknown) (no (unknown) (unknown) Vital Signs (units (un known) date) unknown) (unknown) (no (unknown) (unknown) Vital signs: (units (u nknown) date) unknown) (unknown) (no (unknown) (unknown) WBC 8.6 (units (unkno wn) date) (4.5-11.0) X103/uL unknown) (unknown) (no (unknown) (unknown) XR chest 1V Stat (units (unknown) date) unknown) (unknown) (no (unknown) (unknown) [Embedded Image (units (unknown) date) Not Available] unknown) (unknown) (no (unknown) (unknown) [normal sphincter (units (unknown) date) tone/decreased unknown) tone/no tone/deferred or refused]. Patient has (unknown) (no (unknown) (unknown) admitted for (units (u nknown) date) atypical chest unknown) pain, low back pain and acute urinary retention and (unknown) (no (unknown) (unknown) alcohol intake: (units (unknown) date) former unknown) (unknown) (no (unknown) (unknown) and below (units (unkn own) date) unknown) (unknown) (no (unknown) (unknown) are 2/4 and lower (units (unknown) date) extremities. unknown) Dorsalis pedis and tibialis pulses are 2+ and (unknown) (no (unknown) (unknown) aspirin 81 mg (units ( unknown) date) Tablet,Delayed unknown) Release (Dr/Ec) (unknown) (no (unknown) (unknown) aspirin 81 mg (units ( unknown) date) tablet,delayed 81 unknown) mg PO DAILY #9 tabs 03/30/22 (unknown) (no (unknown) (unknown) atorvastatin 40 (units (unknown) date) mg tablet unknown) (Lipitor) 40 mg PO DAILY #90 tabs 03/30/22 (unknown) (no (unknown) (unknown) atorvastatin (units (u nknown) date) [Lipitor] 40 mg unknown) tablet (unknown) (no (unknown) (unknown) back in 1992. No (units (unknown) date) known drug unknown) allergies. He does use tobacco and smokes a (unknown) (no (unknown) (unknown) but a new urinary (units (unknown) date) retention with a L unknown) in his bladder he was discharged home on (unknown) (no (unknown) (unknown) capsule (units (unkno wn) date) unknown) (unknown) (no (unknown) (unknown) changed from (units (u nknown) date) 10-[address] unknown) elevation. (unknown) (no (unknown) (unknown) cough or (units (unkno wn) date) congestion. He unknown) denies any bladder or fecal incontinence. Patient (unknown) (no (unknown) (unknown) current findings (units (unknown) date) today, at this unknown) time he states nonsurgical does not require (unknown) (no (unknown) (unknown) decreased range (units (unknown) date) of motion. Patient unknown) has pain and discomfort particularly in the (unknown) (no (unknown) (unknown) difficulty with (units (unknown) date) dorsiflexion on unknown) the left foot. He endorses difficulty with (unknown) (no (unknown) (unknown) does have low back (units (unknown) date) pain which unknown) radiates particularly down his left leg and states (unknown) (no (unknown) (unknown) down his legs. (units (unknown) date) Patient states the unknown) chest pain has been present for the last 4-6 (unknown) (no (unknown) (unknown) elevation. (units (unk nown) date) T-waves are unknown) inverted in lateral leads V3 through V 5 which appears (unknown) (no (unknown) (unknown) emergent (units (unkno wn) date) treatment. He unknown) would recommend oral steroids for pain. From spinal (unknown) (no (unknown) (unknown) established with (units (unknown) date) a primary care. unknown) (unknown) (no (unknown) (unknown) exam does show (units (unknown) date) radicular changes unknown) but is inconsistent throughout exam. (unknown) (no (unknown) (unknown) extremities (units (un known) date) unknown) (unknown) (no (unknown) (unknown) fenofibrate (units (un known) date) micronized 134 mg unknown) 134 mg PO DAILY 11/01/20 11/01/20 (unknown) (no (unknown) (unknown) fenofibrate (units (un known) date) micronized 134 mg unknown) capsule (unknown) (no (unknown) (unknown) found to have (units (u nknown) date) stress test which unknown) showed old fixed infarct but nothing new an echo (unknown) (no (unknown) (unknown) guarding or (units (un known) date) rebound, rigidity, unknown) no mass (unknown) (no (unknown) (unknown) he has (units (unkno wn) date) paresthesias down unknown) his left legs. He states it is quite painful he states (unknown) (no (unknown) (unknown) he states it is (units (unknown) date) sort of across his unknown) chest. He denies radiation elsewhere but (unknown) (no (unknown) (unknown) his medications (units (unknown) date) regularly. He unknown) states this feels very similar to his visit in (unknown) (no (unknown) (unknown) hospital. (units (unkn own) date) unknown) (unknown) (no (unknown) (unknown) hours. He states (units (unknown) date) no diaphoresis, no unknown) shortness of breath, no nausea or vomiting (unknown) (no (unknown) (unknown) household (units (unkn own) date) members: unknown) significant other (unknown) (no (unknown) (unknown) intact (units (unkno wn) date) unknown) (unknown) (no (unknown) (unknown) left lower (units (unk nown) date) abdomen. Patient's unknown) gait is not tested initially. Rectal exam is (unknown) (no (unknown) (unknown) losartan 25 mg (units (unknown) date) tablet 25 mg PO unknown) DAILY #90 tabs 03/30/22 (unknown) (no (unknown) (unknown) losartan 25 mg (units (unknown) date) tablet unknown) (unknown) (no (unknown) (unknown) lower (units (unkno wn) date) extremities. unknown) Sensation is intact in the lower extremities. (unknown) (no (unknown) (unknown) metformin 500 mg (units (unknown) date) tablet 500 mg PO unknown) BID #180 tabs 03/30/22 (unknown) (no (unknown) (unknown) metformin 500 mg (units (unknown) date) tablet unknown) (unknown) (no (unknown) (unknown) metoprolol (units (unk nown) date) succinate 25 mg 25 unknown) mg PO DAILY #90 tabs 03/30/22 (unknown) (no (unknown) (unknown) metoprolol (units (unk nown) date) succinate 25 mg unknown) tablet extended release 24 hr (unknown) (no (unknown) (unknown) moist mucous (units (u nknown) date) membranes unknown) (unknown) (no (unknown) (unknown) movement of the (units (unknown) date) left leg but can unknown) adjust himself in the bed without issue. DTRs (unknown) (no (unknown) (unknown) naproxen sodium (units (unknown) date) 220 mg capsule 220 unknown) mg PO BID 03/28/22 03/28/22 (unknown) (no (unknown) (unknown) naproxen sodium (units (unknown) date) [Aleve] 220 mg unknown) Capsule (unknown) (no (unknown) (unknown) no other ischemic (units (unknown) date) changes and an EF unknown) of 40%. Unclear if patient has been taking (unknown) (no (unknown) (unknown) oxycodone 10 mg (units (unknown) date) and that was unknown) helpful. States his only surgeries or for his low (unknown) (no (unknown) (unknown) oxycodone 5 mg (units (unknown) date) tablet 5 mg PO unknown) Q8HR PRN Pain. #20 tabs 03/30/22 (unknown) (no (unknown) (unknown) oxycodone 5 mg (units (unknown) date) tablet unknown) (unknown) (no (unknown) (unknown) pantoprazole 40 (units (unknown) date) mg PO BID ##0 unknown) 11/01/20 (unknown) (no (unknown) (unknown) pantoprazole (units (u nknown) date) tablet unknown) (unknown) (no (unknown) (unknown) perspective (units (un known) date) patient can be DC unknown) home and does not require being seen in the (unknown) (no (unknown) (unknown) quarter to a 3rd (units (unknown) date) pack daily, unknown) occasional alcohol, no illicit. He has not (unknown) (no (unknown) (unknown) release (units (unkno wn) date) unknown) (unknown) (no (unknown) (unknown) sometimes he has (units (unknown) date) weakness in that unknown) leg but not currently. He denies fevers, cold (unknown) (no (unknown) (unknown) states he had (units ( unknown) date) aspirin, nitro unknown) sublingual x3 and morphine EN route with EMS and (unknown) (no (unknown) (unknown) states that he is (units (unknown) date) not any pain unknown) medication for his back but used to be on (unknown) (no (unknown) (unknown) tablet,extended (units (unknown) date) release 24 hr unknown) (unknown) (no (unknown) (unknown) tamsulosin 0.4 mg (units (unknown) date) capsule (Flomax) unknown) 0.4 mg PO BEDTIME #90 caps 03/30/22 (unknown) (no (unknown) (unknown) tamsulosin (units (unk nown) date) [Flomax] 0.4 mg unknown) Capsule (unknown) (no (unknown) (unknown) that he was (units (un known) date) restarted on his unknown) medications unclear if he is taking them daily (unknown) (no (unknown) (unknown) that it changed (units (unknown) date) nothing about his unknown) chest pain or his back pain. States this is (unknown) (no (unknown) (unknown) took it 4 weeks (units (unknown) date) ago. unknown) (unknown) (no (unknown) (unknown) very similar to (units (unknown) date) when he was here unknown) in March and admitted at that time he was (unknown) (no (unknown) (unknown) with EF of 40-55% (units (unknown) date) and a lumbar MRI unknown) which showed no cord compression or stenosis Result panel 597 (unknown) (no date) (unknown) (unknown) Flu A (units (unkn own) NEGATIVE unknown) (unknown) (no date) (unknown) (unknown) Flu B (units (unkn own) NEGATIVE unknown) (unknown) (no date) (unknown) (unknown) Negative (units (unkn own) unknown) (unknown) (no date) (unknown) (unknown) Negative (units (unkn own) unknown) Result panel 598 (unknown) (no date) (unknown) (unknown) <=1.005 (units (unkn own) unknown) (unknown) (no date) (unknown) (unknown) 0.2 e.u./dl (unkn own) (unknown) (no date) (unknown) (unknown) 1 g/dl (unkn own) (unknown) (no date) (unknown) (unknown) 5.5 (units (unkn own) unknown) (unknown) (no date) (unknown) (unknown) CLEAR (units (unkn own) unknown) (unknown) (no date) (unknown) (unknown) Cult Not (units (unkn own) Indicated unknown) (unknown) (no date) (unknown) (unknown) NEGATIVE (units (unkn own) unknown) (unknown) (no date) (unknown) (unknown) None Seen (units (unk nown) unknown) (unknown) (no date) (unknown) (unknown) None Seen (units (unk nown) unknown) (unknown) (no date) (unknown) (unknown) YELLOW (units (unkn own) unknown) (unknown) (no date) (unknown) (unknown) YELLOW (units (unkn own) unknown) Result panel 599 (unknown) (no date) (unknown) (unknown) 0.013 ng/ml (unkn own) (unknown) (no date) (unknown) (unknown) 0.013 ng/ml (unkn own) Result panel 600 (unknown) (no (unknown) (unknown) (no value) (units (unk nown) date) unknown) (unknown) (no (unknown) (unknown) (Aleve) (units (unkno wn) date) unknown) (unknown) (no (unknown) (unknown) 0.4 mg PO BEDTIME (units (unknown) date) Qty: 90 0RF unknown) (unknown) (no (unknown) (unknown) 04/30/22 04/30/22 (units (unknown) date) 04/30/22 unknown) Range/Units (unknown) (no (unknown) (unknown) 04/30/22 19:01 (units (unknown) date) unknown) (unknown) (no (unknown) (unknown) 04/30/22 19:06 (units (unknown) date) unknown) (unknown) (no (unknown) (unknown) 04/30/22 19:10 (units (unknown) date) unknown) (unknown) (no (unknown) (unknown) 04/30/22 19:50 (units (unknown) date) unknown) (unknown) (no (unknown) (unknown) 04/30/22 21:00 (units (unknown) date) unknown) (unknown) (no (unknown) (unknown) 04/30/22 (units (unkno wn) date) Range/Units unknown) (unknown) (no (unknown) (unknown) 04/30/22 (units (unkno wn) date) unknown) (unknown) (no (unknown) (unknown) 134 mg PO DAILY (units (unknown) date) unknown) (unknown) (no (unknown) (unknown) 18:59 04/30/22 (units (unknown) date) unknown) (unknown) (no (unknown) (unknown) 19:00 04/30/22 (units (unknown) date) unknown) (unknown) (no (unknown) (unknown) 19:00 (units (unkno wn) date) unknown) (unknown) (no (unknown) (unknown) 19:01 19:01 19:01 (units (unknown) date) unknown) (unknown) (no (unknown) (unknown) 19:01 19:06 19:50 (units (unknown) date) unknown) (unknown) (no (unknown) (unknown) 19:02 04/30/22 (units (unknown) date) unknown) (unknown) (no (unknown) (unknown) 19:15 04/30/22 (units (unknown) date) unknown) (unknown) (no (unknown) (unknown) 19:15 (units (unkno wn) date) unknown) (unknown) (no (unknown) (unknown) 19:30 04/30/22 (units (unknown) date) unknown) (unknown) (no (unknown) (unknown) 19:51 04/30/22 (units (unknown) date) unknown) (unknown) (no (unknown) (unknown) 19:51 (units (unkno wn) date) unknown) (unknown) (no (unknown) (unknown) 20:00 04/30/22 (units (unknown) date) unknown) (unknown) (no (unknown) (unknown) 20:00 (units (unkno wn) date) unknown) (unknown) (no (unknown) (unknown) 20:30 04/30/22 (units (unknown) date) unknown) (unknown) (no (unknown) (unknown) 21:00 (units (unkno wn) date) unknown) (unknown) (no (unknown) (unknown) 220 mg PO BID (units ( unknown) date) unknown) (unknown) (no (unknown) (unknown) 25 mg PO DAILY (units (unknown) date) Qty: 90 0RF unknown) (unknown) (no (unknown) (unknown) 2847 (units (unkno wn) date) unknown) (unknown) (no (unknown) (unknown) 40 mg PO BID Qty: (units (unknown) date) 0 0RF unknown) (unknown) (no (unknown) (unknown) 40 mg PO DAILY (units (unknown) date) Qty: 90 0RF unknown) (unknown) (no (unknown) (unknown) 5 MG PO Q8HR As (units (unknown) date) Needed for Pain unknown) (unknown) (no (unknown) (unknown) 5 mg PO Q8HR PRN (units (unknown) date) (Reason: Pain.) unknown) Qty: 20 0RF (unknown) (no (unknown) (unknown) 500 mg PO BID (units ( unknown) date) Qty: 180 0RF unknown) (unknown) (no (unknown) (unknown) 81 mg PO DAILY (units (unknown) date) Qty: 9 0RF unknown) (unknown) (no (unknown) (unknown) ABDOMEN: Soft, (units (unknown) date) nontender. unknown) Normoactive bowel sounds all 4 quadrants. No (unknown) (no (unknown) (unknown) ALT (<50) IU/L (units (unknown) date) unknown) (unknown) (no (unknown) (unknown) ALT 42 (<50) IU/L (units (unknown) date) unknown) (unknown) (no (unknown) (unknown) AST (17-59) IU/L (units (unknown) date) unknown) (unknown) (no (unknown) (unknown) AST 49 (17-59) (units (unknown) date) IU/L unknown) (unknown) (no (unknown) (unknown) Age/Sex: 66 / M (units (unknown) date) unknown) (unknown) (no (unknown) (unknown) Albumin (3.5-5.0) (units (unknown) date) g/dL unknown) (unknown) (no (unknown) (unknown) Albumin 3.9 (units (un known) date) (3.5-5.0) g/dL unknown) (unknown) (no (unknown) (unknown) Albumin/Globulin (units (unknown) date) Ratio (1.0-2.8) unknown) (unknown) (no (unknown) (unknown) Albumin/Globulin (units (unknown) date) Ratio 1.4 unknown) (1.0-2.8) (unknown) (no (unknown) (unknown) Alkaline (units (unkno wn) date) Phosphatase unknown) (38-126) U/L (unknown) (no (unknown) (unknown) Alkaline (units (unkno wn) date) Phosphatase 100 unknown) (38-126) U/L (unknown) (no (unknown) (unknown) Allergies (units (unkn own) date) unknown) (unknown) (no (unknown) (unknown) Allergy/AdvReac (units (unknown) date) Type Severity unknown) Reaction Status Date / Time (unknown) (no (unknown) (unknown) Attestation: I (units (unknown) date) personally unknown) reviewed and interpreted this ECG as follows: (unknown) (no (unknown) (unknown) BACK: No (units (unkno wn) date) cervical, thoracic unknown) or lumbar vertebral point tenderness. Patient has (unknown) (no (unknown) (unknown) BNP [NT-proBNP (units (unknown) date) (BNP-Adult 18+)] unknown) Stat (unknown) (no (unknown) (unknown) BUN (9-20) mg/dL (units (unknown) date) unknown) (unknown) (no (unknown) (unknown) BUN 7 L (9-20) (units (unknown) date) mg/dL unknown) (unknown) (no (unknown) (unknown) BUN/Creatinine (units (unknown) date) Ratio (6-22) unknown) (unknown) (no (unknown) (unknown) BUN/Creatinine (units (unknown) date) Ratio 10.6 (6-22) unknown) (unknown) (no (unknown) (unknown) Baso # (Auto) (units ( unknown) date) (0-100) /uL unknown) (unknown) (no (unknown) (unknown) Baso # (Auto) 200 (units (unknown) date) H (0-100) /uL unknown) (unknown) (no (unknown) (unknown) Baso % (Auto) (units ( unknown) date) (0-2) % unknown) (unknown) (no (unknown) (unknown) Baso % (Auto) 2.0 (units (unknown) date) (0-2) % unknown) (unknown) (no (unknown) (unknown) Blood Pressure (units (unknown) date) 104/69 unknown) (unknown) (no (unknown) (unknown) Blood Pressure (units (unknown) date) 105/73 unknown) (unknown) (no (unknown) (unknown) Blood Pressure (units (unknown) date) 109/67 107/64 unknown) (unknown) (no (unknown) (unknown) Blood Pressure (units (unknown) date) 110/62 112/66 unknown) (unknown) (no (unknown) (unknown) Blood Pressure (units (unknown) date) 98/68 98/68 unknown) (unknown) (no (unknown) (unknown) Blood Pressure (units (unknown) date) unknown) (unknown) (no (unknown) (unknown) CARDIOVASCULAR: (units (unknown) date) Regular rate and unknown) rhythm without murmurs, rubs or gallops. (unknown) (no (unknown) (unknown) CK-MB (CK-2) Rel (units (unknown) date) Index TNP unknown) (unknown) (no (unknown) (unknown) CK-MB (CK-2) Rel (units (unknown) date) Index unknown) (unknown) (no (unknown) (unknown) CK-MB (CK-2) TNP (units (unknown) date) unknown) (unknown) (no (unknown) (unknown) CK-MB (CK-2) (units (u nknown) date) unknown) (unknown) (no (unknown) (unknown) Calcium (units (unkno wn) date) (8.4-10.2) mg/dL unknown) (unknown) (no (unknown) (unknown) Calcium 8.1 L (units ( unknown) date) (8.4-10.2) mg/dL unknown) (unknown) (no (unknown) (unknown) Carbon Dioxide (units (unknown) date) (22-32) mmol/L unknown) (unknown) (no (unknown) (unknown) Carbon Dioxide 17 (units (unknown) date) L (22-32) mmol/L unknown) (unknown) (no (unknown) (unknown) Chief Complaint: (units (unknown) date) Chest Pain unknown) (unknown) (no (unknown) (unknown) Chloride (98-107) (units (unknown) date) mmol/L unknown) (unknown) (no (unknown) (unknown) Chloride 104 (units (u nknown) date) (98-107) mmol/L unknown) (unknown) (no (unknown) (unknown) Complete Blood (units (unknown) date) Count AUTO DIFF unknown) Stat (unknown) (no (unknown) (unknown) Comprehensive (units ( unknown) date) Metabolic Panel unknown) Stat (unknown) (no (unknown) (unknown) Consultation #1: (units (unknown) date) unknown) (unknown) (no (unknown) (unknown) Consultations (units ( unknown) date) unknown) (unknown) (no (unknown) (unknown) Coronary artery (units (unknown) date) disease unknown) (unknown) (no (unknown) (unknown) Course (units (unkno wn) date) unknown) (unknown) (no (unknown) (unknown) Covid-19 + FLU (units (unknown) date) A/B + RSV - PCR unknown) Stat (unknown) (no (unknown) (unknown) Creatinine (units (unk nown) date) (0.66-1.25) mg/dL unknown) (unknown) (no (unknown) (unknown) Creatinine 0.66 (units (unknown) date) (0.66-1.25) mg/dL unknown) (unknown) (no (unknown) (unknown) : 1955 (units (unknown) date) Acct:[id number] unknown) (unknown) (no (unknown) (unknown) Date of Service: (units (unknown) date) 04/30/22 unknown) (unknown) (no (unknown) (unknown) Departure (units (unkn own) date) unknown) (unknown) (no (unknown) (unknown) Diabetes type 2, (units (unknown) date) uncontrolled unknown) (unknown) (no (unknown) (unknown) Discharge Plan (units (unknown) date) unknown) (unknown) (no (unknown) (unknown) Discontinued (units (u nknown) date) Medications unknown) (unknown) (no (unknown) (unknown) Documented By: (units (unknown) date) JESÚS unknown) (unknown) (no (unknown) (unknown) Dr. John, (units (unkno wn) date) orthopedic unknown) surgery. Reviewed patient's MRI from March 29, 2022 his (unknown) (no (unknown) (unknown) ECG Data (units (unkno wn) date) unknown) (unknown) (no (unknown) (unknown) ED Orders (units (unkn own) date) unknown) (unknown) (no (unknown) (unknown) EKG-12 Lead Stat (units (unknown) date) unknown) (unknown) (no (unknown) (unknown) ER Physician: (units ( unknown) date) Emma Stevens D.O. unknown) (unknown) (no (unknown) (unknown) ETOH [Ethanol (units ( unknown) date) (ETOH)] Stat unknown) (unknown) (no (unknown) (unknown) EXTREMITIES: (units (u nknown) date) Normal range of unknown) motion, no clubbing or edema. Neurovascularly (unknown) (no (unknown) (unknown) Elevated blood (units (unknown) date) alcohol level unknown) (unknown) (no (unknown) (unknown) Emergency Report (units (unknown) date) unknown) (unknown) (no (unknown) (unknown) Eos # (Auto) (units (u nknown) date) (0-450) /uL unknown) (unknown) (no (unknown) (unknown) Eos # (Auto) 300 (units (unknown) date) (0-450) /uL unknown) (unknown) (no (unknown) (unknown) Eos % (Auto) (units (u nknown) date) (2-4) % unknown) (unknown) (no (unknown) (unknown) Eos % (Auto) 3.5 (units (unknown) date) (2-4) % unknown) (unknown) (no (unknown) (unknown) Estimated GFR > (units (unknown) date) 60 (>60) mL/min unknown) (unknown) (no (unknown) (unknown) Estimated GFR (units ( unknown) date) (>60) mL/min unknown) (unknown) (no (unknown) (unknown) Ethyl Alcohol ( - (units (unknown) date) 10) mg/dL unknown) (unknown) (no (unknown) (unknown) Ethyl Alcohol 133 (units (unknown) date) H ( - 10) mg/dL unknown) (unknown) (no (unknown) (unknown) Exam Narrative: (units (unknown) date) unknown) (unknown) (no (unknown) (unknown) Exam (units (unkno wn) date) unknown) (unknown) (no (unknown) (unknown) Family History (units (unknown) date) (Reviewed 04/30/22 unknown) @ 19:35 by Emma Stevens DO) (unknown) (no (unknown) (unknown) Father (units (unknown) date) Lung cancer unknown) (unknown) (no (unknown) (unknown) Flomax and on his (units (unknown) date) diabetic unknown) medications and heart medications. Patient does note (unknown) (no (unknown) (unknown) GENERAL: Alert (units (unknown) date) and oriented x unknown) three, male in mild distress (unknown) (no (unknown) (unknown) : No CVA (units (unk nown) date) tenderness unknown) (unknown) (no (unknown) (unknown) General (units (unkno wn) date) unknown) (unknown) (no (unknown) (unknown) Globulin (units (unkno wn) date) (1.7-4.1) g/dL unknown) (unknown) (no (unknown) (unknown) Globulin 2.8 (units (u nknown) date) (1.7-4.1) g/dL unknown) (unknown) (no (unknown) (unknown) Glucose (80-110) (units (unknown) date) mg/dL unknown) (unknown) (no (unknown) (unknown) Glucose 206 H (units ( unknown) date) (80-110) mg/dL unknown) (unknown) (no (unknown) (unknown) H/O heart artery (units (unknown) date) stent unknown) (unknown) (no (unknown) (unknown) HEENT: Head (units (un known) date) normocephalic, unknown) atraumatic, EOMI, pupils reactive, face symmetric, (unknown) (no (unknown) (unknown) HPI - Chest Pain (units (unknown) date) unknown) (unknown) (no (unknown) (unknown) HPI narrative: (units (unknown) date) unknown) (unknown) (no (unknown) (unknown) Hct (41-53) % (units ( unknown) date) unknown) (unknown) (no (unknown) (unknown) Hct 44.2 (41-53) (units (unknown) date) % unknown) (unknown) (no (unknown) (unknown) Hgb (13.5-17.5) (units (unknown) date) g/dL unknown) (unknown) (no (unknown) (unknown) Hgb 15.4 (units (unkno wn) date) (13.5-17.5) g/dL unknown) (unknown) (no (unknown) (unknown) History of (units (unk nown) date) Present Illness unknown) (unknown) (no (unknown) (unknown) Home Medications (units (unknown) date) unknown) (unknown) (no (unknown) (unknown) Influenza A (units (un known) date) (RT-PCR) unknown) (NEGATIVE) (unknown) (no (unknown) (unknown) Influenza A (units (un known) date) (RT-PCR) Flu a unknown) negative (NEGATIVE) (unknown) (no (unknown) (unknown) Influenza B (units (un known) date) (RT-PCR) unknown) (NEGATIVE) (unknown) (no (unknown) (unknown) Influenza B (units (un known) date) (RT-PCR) Flu b unknown) negative (NEGATIVE) (unknown) (no (unknown) (unknown) Initial Vital (units ( unknown) date) Signs unknown) (unknown) (no (unknown) (unknown) Initial Vital (units ( unknown) date) Signs: unknown) (unknown) (no (unknown) (unknown) Interpretation: (units (unknown) date) unknown) (unknown) (no (unknown) (unknown) [facility] (units (unknown) date) [address] unknown) [place] [address] (unknown) (no (unknown) (unknown) Lab Data (units (unkno wn) date) unknown) (unknown) (no (unknown) (unknown) Lab Results (units (un known) date) unknown) (unknown) (no (unknown) (unknown) Label Comments: (units (unknown) date) unknown) (unknown) (no (unknown) (unknown) Labs: (units (unkno wn) date) unknown) (unknown) (no (unknown) (unknown) Last Admin: (units (un known) date) 04/30/22 20:00 unknown) Dose: 10 mg (unknown) (no (unknown) (unknown) Limitations: no (units (unknown) date) limitations unknown) (unknown) (no (unknown) (unknown) Lipase (23-300) (units (unknown) date) U/L unknown) (unknown) (no (unknown) (unknown) Lipase 381 H (units (u nknown) date) (23-300) U/L unknown) (unknown) (no (unknown) (unknown) Lipase Stat (units (un known) date) unknown) (unknown) (no (unknown) (unknown) Lymph # (Auto) (units (unknown) date) (3103-1318) /uL unknown) (unknown) (no (unknown) (unknown) Lymph # (Auto) (units (unknown) date) 2900 (2809-3573) unknown) /uL (unknown) (no (unknown) (unknown) Lymph % (Auto) (units (unknown) date) (25-40) % unknown) (unknown) (no (unknown) (unknown) Lymph % (Auto) (units (unknown) date) 33.9 (25-40) % unknown) (unknown) (no (unknown) (unknown) MCH (26-34) PG (units (unknown) date) unknown) (unknown) (no (unknown) (unknown) MCH 30.3 (26-34) (units (unknown) date) PG unknown) (unknown) (no (unknown) (unknown) MCHC (30-36) % (units (unknown) date) unknown) (unknown) (no (unknown) (unknown) MCHC 34.9 (30-36) (units (unknown) date) % unknown) (unknown) (no (unknown) (unknown) MCV (80-100) fL (units (unknown) date) unknown) (unknown) (no (unknown) (unknown) MCV 86.9 (80-100) (units (unknown) date) fL unknown) (unknown) (no (unknown) (unknown) MDM - Chest Pain (units (unknown) date) unknown) (unknown) (no (unknown) (unknown) MDM Narrative (units ( unknown) date) unknown) (unknown) (no (unknown) (unknown) MRI at that time (units (unknown) date) which showed disc unknown) bulge but no stenosis or emergent changes. (unknown) (no (unknown) (unknown) Magnesium (units (unkn own) date) (1.6-2.3) mg/dL unknown) (unknown) (no (unknown) (unknown) Magnesium 1.6 (units ( unknown) date) (1.6-2.3) mg/dL unknown) (unknown) (no (unknown) (unknown) Magnesium Stat (units (unknown) date) unknown) (unknown) (no (unknown) (unknown) Medical History (units (unknown) date) (Reviewed 04/30/22 unknown) @ 19:35 by Emma Stevens DO) (unknown) (no (unknown) (unknown) Medical decision (units (unknown) date) making narrative: unknown) (unknown) (no (unknown) (unknown) Medication (units (unk nown) date) Instructions unknown) Recorded Confirmed (unknown) (no (unknown) (unknown) Medication (units (unk nown) date) Instructions unknown) Recorded (unknown) (no (unknown) (unknown) Miscellaneous,Doc (units (unknown) date) MD shaggy [Primary unknown) Care Provider] (unknown) (no (unknown) (unknown) Mode of arrival: (units (unknown) date) EMS unknown) (unknown) (no (unknown) (unknown) [place] # (Auto) (units ( unknown) date) (0-900) /uL unknown) (unknown) (no (unknown) (unknown) [place] # (Auto) 800 (units (unknown) date) (0-900) /uL unknown) (unknown) (no (unknown) (unknown) [place] % (Auto) (units ( unknown) date) (3-14) % unknown) (unknown) (no (unknown) (unknown) [place] % (Auto) 8.9 (units (unknown) date) (3-14) % unknown) (unknown) (no (unknown) (unknown) Mother Medical (units (unknown) date) history unknown unknown) (unknown) (no (unknown) (unknown) NECK: Supple, (units ( unknown) date) full range of unknown) motion (unknown) (no (unknown) (unknown) NEUROLOGICAL: (units ( unknown) date) Cranial nerves II unknown) through XII grossly intact. Moving all (unknown) (no (unknown) (unknown) NT-Pro-B (units (unkno wn) date) Natriuret Pep unknown) (<125) pg/mL (unknown) (no (unknown) (unknown) NT-Pro-B (units (unkno wn) date) Natriuret Pep 246 unknown) H (<125) pg/mL (unknown) (no (unknown) (unknown) Narrative (units (unkn own) date) unknown) (unknown) (no (unknown) (unknown) Neut # (Auto) (units ( unknown) date) (5724-7286) /uL unknown) (unknown) (no (unknown) (unknown) Neut # (Auto) (units ( unknown) date) 4500 (3270-9565) unknown) /uL (unknown) (no (unknown) (unknown) Neut % (Auto) (units ( unknown) date) (50-75) % unknown) (unknown) (no (unknown) (unknown) Neut % (Auto) (units ( unknown) date) 51.7 (50-75) % unknown) (unknown) (no (unknown) (unknown) No Action (units (unkn own) date) unknown) (unknown) (no (unknown) (unknown) No Known Drug (units ( unknown) date) Allergies Allergy unknown) Verified 10/31/20 23:10 (unknown) (no (unknown) (unknown) March as well (units (unknown) date) as low back pain unknown) and radicular symptoms. Patient had an lumbar (unknown) (no (unknown) (unknown) March. EKG does (units (unknown) date) show new ST unknown) depression, initial troponin is negative, patient (unknown) (no (unknown) (unknown) Ordered: (units (unkno wn) date) unknown) (unknown) (no (unknown) (unknown) Orders (units (unkno wn) date) unknown) (unknown) (no (unknown) (unknown) Oxycodone HCl (units ( unknown) date) (Oxycodone Ir 5 Mg unknown) Tablet) 10 mg PO NOW ONE (unknown) (no (unknown) (unknown) Oxygen Delivery (units (unknown) date) Method Room Air unknown) (unknown) (no (unknown) (unknown) Oxygen Delivery (units (unknown) date) Method unknown) (unknown) (no (unknown) (unknown) Patient History (units (unknown) date) unknown) (unknown) (no (unknown) (unknown) Patient's did have (units (unknown) date) stress testing at unknown) that time which had a fixed wall defect but (unknown) (no (unknown) (unknown) Patient: (units (unkno wn) date) Frank Chan MR#: unknown) [id number] (unknown) (no (unknown) (unknown) Plt Count (units (unkn own) date) (150-400) X103/uL unknown) (unknown) (no (unknown) (unknown) Plt Count 159 (units ( unknown) date) (150-400) X103/uL unknown) (unknown) (no (unknown) (unknown) Potassium (units (unkn own) date) (3.4-5.1) mmol/L unknown) (unknown) (no (unknown) (unknown) Potassium 4.2 (units ( unknown) date) (3.4-5.1) mmol/L unknown) (unknown) (no (unknown) (unknown) Prescriptions: (units (unknown) date) unknown) (unknown) (no (unknown) (unknown) Previous Rx's (units ( unknown) date) unknown) (unknown) (no (unknown) (unknown) Pulse Oximetry 94 (units (unknown) date) 93 unknown) (unknown) (no (unknown) (unknown) Pulse Oximetry 94 (units (unknown) date) unknown) (unknown) (no (unknown) (unknown) Pulse Oximetry 95 (units (unknown) date) 04/30/22 18:59 unknown) (unknown) (no (unknown) (unknown) Pulse Oximetry 95 (units (unknown) date) 97 unknown) (unknown) (no (unknown) (unknown) Pulse Oximetry 95 (units (unknown) date) unknown) (unknown) (no (unknown) (unknown) Pulse Oximetry 97 (units (unknown) date) 95 unknown) (unknown) (no (unknown) (unknown) Pulse Rate 79 (units ( unknown) date) unknown) (unknown) (no (unknown) (unknown) Pulse Rate 81 (units ( unknown) date) unknown) (unknown) (no (unknown) (unknown) Pulse Rate 84 (units ( unknown) date) unknown) (unknown) (no (unknown) (unknown) Pulse Rate 91 H (units (unknown) date) 04/30/22 18:59 unknown) (unknown) (no (unknown) (unknown) Pulse Rate 92 H (units (unknown) date) 91 H unknown) (unknown) (no (unknown) (unknown) Pulse Rate 93 H (units (unknown) date) 86 unknown) (unknown) (no (unknown) (unknown) RBC (4.5-5.9) (units ( unknown) date) X106/uL unknown) (unknown) (no (unknown) (unknown) RBC 5.09 (units (unkno wn) date) (4.5-5.9) X106/uL unknown) (unknown) (no (unknown) (unknown) RDW (11.6-14.8) % (units (unknown) date) unknown) (unknown) (no (unknown) (unknown) RDW 13.4 (units (unkno wn) date) (11.6-14.8) % unknown) (unknown) (no (unknown) (unknown) RESPIRATORY: (units (u nknown) date) Breath sounds unknown) equal bilaterally, no wheezes rales or rhonchi. (unknown) (no (unknown) (unknown) ROS Unobtainable: (units (unknown) date) All systems unknown) reviewed + are unremarkable except as noted in HPI (unknown) (no (unknown) (unknown) RSV (PCR) (units (unkn own) date) (Negative) unknown) (unknown) (no (unknown) (unknown) RSV (PCR) (units (unkn own) date) Negative unknown) (Negative) (unknown) (no (unknown) (unknown) Referrals: (units (unk nown) date) unknown) (unknown) (no (unknown) (unknown) Related Data (units (u nknown) date) unknown) (unknown) (no (unknown) (unknown) Respiratory Rate (units (unknown) date) 12 13 unknown) (unknown) (no (unknown) (unknown) Respiratory Rate (units (unknown) date) 13 unknown) (unknown) (no (unknown) (unknown) Respiratory Rate (units (unknown) date) 14 unknown) (unknown) (no (unknown) (unknown) Respiratory Rate (units (unknown) date) 15 unknown) (unknown) (no (unknown) (unknown) Respiratory Rate (units (unknown) date) 17 15 unknown) (unknown) (no (unknown) (unknown) Respiratory Rate (units (unknown) date) 18 19 unknown) (unknown) (no (unknown) (unknown) Respiratory Rate (units (unknown) date) 19 04/30/22 18:59 unknown) (unknown) (no (unknown) (unknown) Result diagrams: (units (unknown) date) unknown) (unknown) (no (unknown) (unknown) Review of Systems (units (unknown) date) unknown) (unknown) (no (unknown) (unknown) SARS-CoV-2 (PCR) (units (unknown) date) (Negative) unknown) (unknown) (no (unknown) (unknown) SARS-CoV-2 (PCR) (units (unknown) date) Negative unknown) (Negative) (unknown) (no (unknown) (unknown) SKIN: Warm, dry, (units (unknown) date) no petechiae, no unknown) rashes or lesions. (unknown) (no (unknown) (unknown) Signed By: (units (unk nown) date) unknown) (unknown) (no (unknown) (unknown) Sinus rhythm rate (units (unknown) date) 80 6p are 146 QRS unknown) of 106 and QTC of 464. No acute ST (unknown) (no (unknown) (unknown) Smoking Status: (units (unknown) date) Current every day unknown) smoker (unknown) (no (unknown) (unknown) Social History (units (unknown) date) (Reviewed 04/30/22 unknown) @ 19:35 by Emma Stevens DO) (unknown) (no (unknown) (unknown) Sodium (137-145) (units (unknown) date) mmol/L unknown) (unknown) (no (unknown) (unknown) Sodium 138 (units (unk nown) date) (137-145) mmol/L unknown) (unknown) (no (unknown) (unknown) Source: patient, (units (unknown) date) EMS, RN notes unknown) reviewed and old records reviewed (unknown) (no (unknown) (unknown) Stated Complaint: (units (unknown) date) Chest pain unknown) (unknown) (no (unknown) (unknown) Stop: 04/30/22 (units (unknown) date) 19:40 unknown) (unknown) (no (unknown) (unknown) Substance Use (units ( unknown) date) Type: does not use unknown) (unknown) (no (unknown) (unknown) Surgical History (units (unknown) date) (Reviewed 04/30/22 unknown) @ 19:35 by Emma Stevens DO) (unknown) (no (unknown) (unknown) Temperature 98.3 (units (unknown) date) F unknown) (unknown) (no (unknown) (unknown) Temperature (units (un known) date) unknown) (unknown) (no (unknown) (unknown) This is a (units (unkn own) date) 66-year-old male unknown) who presents with recurrent chest pain similar to (unknown) (no (unknown) (unknown) This is a (units (unkn own) date) 66-year-old male unknown) with complaint of chest, low back pain that radiates (unknown) (no (unknown) (unknown) Time Seen by (units (u nknown) date) Provider: 04/30/22 unknown) 18:56 (unknown) (no (unknown) (unknown) Time: 20:03 (units (un known) date) unknown) (unknown) (no (unknown) (unknown) Total Bilirubin (units (unknown) date) (0.2-1.3) mg/dL unknown) (unknown) (no (unknown) (unknown) Total Bilirubin (units (unknown) date) 1.1 (0.2-1.3) unknown) mg/dL (unknown) (no (unknown) (unknown) Total Creatine (units (unknown) date) Kinase (55-170) unknown) U/L (unknown) (no (unknown) (unknown) Total Creatine (units (unknown) date) Kinase 44 L unknown) (55-170) U/L (unknown) (no (unknown) (unknown) Total Protein (units ( unknown) date) (6.3-8.2) g/dL unknown) (unknown) (no (unknown) (unknown) Total Protein 6.7 (units (unknown) date) (6.3-8.2) g/dL unknown) (unknown) (no (unknown) (unknown) Trop I [Troponin (units (unknown) date) I] Stat unknown) (unknown) (no (unknown) (unknown) Troponin + CK (units ( unknown) date) Cardiac Panel Stat unknown) (unknown) (no (unknown) (unknown) Troponin I < (units (u nknown) date) 0.012 (0.01-0.034) unknown) ng/mL (unknown) (no (unknown) (unknown) Troponin I (units (unk nown) date) (0.01-0.034) ng/mL unknown) (unknown) (no (unknown) (unknown) Troponin I 0.013 (units (unknown) date) (0.01-0.034) ng/mL unknown) (unknown) (no (unknown) (unknown) UA Complete (units (un known) date) [Urinalysis and unknown) Microscopic] Stat (unknown) (no (unknown) (unknown) Ur Culture (units (unk nown) date) Indicated? Cult unknown) not indicated (unknown) (no (unknown) (unknown) Ur Culture (units (unk nown) date) Indicated? unknown) (unknown) (no (unknown) (unknown) Ur Leukocyte (units (u nknown) date) Esterase unknown) (NEGATIVE) (unknown) (no (unknown) (unknown) Ur Leukocyte (units (u nknown) date) Esterase Negative unknown) (NEGATIVE) (unknown) (no (unknown) (unknown) Ur Specific (units (un known) date) [place] <=1.005 unknown) (1.000-1.035) (unknown) (no (unknown) (unknown) Ur Specific (units (un known) date) [place] unknown) (1.000-1.035) (unknown) (no (unknown) (unknown) Urine Appearance (units (unknown) date) Clear unknown) (unknown) (no (unknown) (unknown) Urine Appearance (units (unknown) date) unknown) (unknown) (no (unknown) (unknown) Urine Bacteria (units (unknown) date) (None) unknown) (unknown) (no (unknown) (unknown) Urine Bacteria (units (unknown) date) None seen (None) unknown) (unknown) (no (unknown) (unknown) Urine Bilirubin (units (unknown) date) (NEGATIVE) unknown) (unknown) (no (unknown) (unknown) Urine Bilirubin (units (unknown) date) Negative unknown) (NEGATIVE) (unknown) (no (unknown) (unknown) Urine Color (units (un known) date) Yellow unknown) (unknown) (no (unknown) (unknown) Urine Color (units (un known) date) unknown) (unknown) (no (unknown) (unknown) Urine Glucose (units ( unknown) date) (UA) (Negative) unknown) g/dL (unknown) (no (unknown) (unknown) Urine Glucose (units ( unknown) date) (UA) 1+ H unknown) (Negative) g/dL (unknown) (no (unknown) (unknown) Urine Ketones (units ( unknown) date) (NEGATIVE) unknown) (unknown) (no (unknown) (unknown) Urine Ketones (units ( unknown) date) Negative unknown) (NEGATIVE) (unknown) (no (unknown) (unknown) Urine Nitrate (units ( unknown) date) (Negative) unknown) (unknown) (no (unknown) (unknown) Urine Nitrate (units ( unknown) date) Negative unknown) (Negative) (unknown) (no (unknown) (unknown) Urine Occult (units (u nknown) date) Blood (Negative) unknown) (unknown) (no (unknown) (unknown) Urine Occult (units (u nknown) date) Blood Negative unknown) (Negative) (unknown) (no (unknown) (unknown) Urine Protein (units ( unknown) date) (Negative) unknown) (unknown) (no (unknown) (unknown) Urine Protein (units ( unknown) date) Negative unknown) (Negative) (unknown) (no (unknown) (unknown) Urine RBC (units (unkn own) date) (0-5/HPF) unknown) (unknown) (no (unknown) (unknown) Urine RBC None (units (unknown) date) seen (0-5/HPF) unknown) (unknown) (no (unknown) (unknown) Urine (units (unkno wn) date) Urobilinogen (0.2) unknown) E.U./dL (unknown) (no (unknown) (unknown) Urine (units (unkno wn) date) Urobilinogen 0.2 unknown) (0.2) E.U./dL (unknown) (no (unknown) (unknown) Urine WBC (units (unkn own) date) (0-5/HPF) unknown) (unknown) (no (unknown) (unknown) Urine WBC None (units (unknown) date) seen (0-5/HPF) unknown) (unknown) (no (unknown) (unknown) Urine pH (units (unkno wn) date) (4.5-8.0) unknown) (unknown) (no (unknown) (unknown) Urine pH 5.5 (units (u nknown) date) (4.5-8.0) unknown) (unknown) (no (unknown) (unknown) Vital Signs - 8 (units (unknown) date) hr unknown) (unknown) (no (unknown) (unknown) Vital Signs (units (un known) date) unknown) (unknown) (no (unknown) (unknown) Vital signs: (units (u nknown) date) unknown) (unknown) (no (unknown) (unknown) WBC (4.5-11.0) (units (unknown) date) X103/uL unknown) (unknown) (no (unknown) (unknown) WBC 8.6 (units (unkno wn) date) (4.5-11.0) X103/uL unknown) (unknown) (no (unknown) (unknown) XR chest 1V Stat (units (unknown) date) unknown) (unknown) (no (unknown) (unknown) [Embedded Image (units (unknown) date) Not Available] unknown) (unknown) (no (unknown) (unknown) [normal sphincter (units (unknown) date) tone/decreased unknown) tone/no tone/deferred or refused]. Patient has (unknown) (no (unknown) (unknown) admitted for (units (u nknown) date) atypical chest unknown) pain, low back pain and acute urinary retention and (unknown) (no (unknown) (unknown) alcohol intake: (units (unknown) date) former unknown) (unknown) (no (unknown) (unknown) and below (units (unkn own) date) unknown) (unknown) (no (unknown) (unknown) are 2/4 and lower (units (unknown) date) extremities. unknown) Dorsalis pedis and tibialis pulses are 2+ and (unknown) (no (unknown) (unknown) aspirin 81 mg (units ( unknown) date) Tablet,Delayed unknown) Release (Dr/Ec) (unknown) (no (unknown) (unknown) aspirin 81 mg (units ( unknown) date) tablet,delayed 81 unknown) mg PO DAILY #9 tabs 03/30/22 (unknown) (no (unknown) (unknown) atorvastatin 40 (units (unknown) date) mg tablet unknown) (Lipitor) 40 mg PO DAILY #90 tabs 03/30/22 (unknown) (no (unknown) (unknown) atorvastatin (units (u nknown) date) [Lipitor] 40 mg unknown) tablet (unknown) (no (unknown) (unknown) back in 1992. No (units (unknown) date) known drug unknown) allergies. He does use tobacco and smokes a (unknown) (no (unknown) (unknown) but a new urinary (units (unknown) date) retention with a L unknown) in his bladder he was discharged home on (unknown) (no (unknown) (unknown) capsule (units (unkno wn) date) unknown) (unknown) (no (unknown) (unknown) changed from (units (u nknown) date) 04-[address] unknown) elevation. (unknown) (no (unknown) (unknown) cough or (units (unkno wn) date) congestion. He unknown) denies any bladder or fecal incontinence. Patient (unknown) (no (unknown) (unknown) current findings (units (unknown) date) today, at this unknown) time he states nonsurgical does not require (unknown) (no (unknown) (unknown) decreased range (units (unknown) date) of motion. Patient unknown) has pain and discomfort particularly in the (unknown) (no (unknown) (unknown) difficulty with (units (unknown) date) dorsiflexion on unknown) the left foot. He endorses difficulty with (unknown) (no (unknown) (unknown) does have low back (units (unknown) date) pain which unknown) radiates particularly down his left leg and states (unknown) (no (unknown) (unknown) down his legs. (units (unknown) date) Patient states the unknown) chest pain has been present for the last 4-6 (unknown) (no (unknown) (unknown) elevation. (units (unk nown) date) T-waves are unknown) inverted in lateral leads V3 through V 5 which appears (unknown) (no (unknown) (unknown) emergent (units (unkno wn) date) treatment. He unknown) would recommend oral steroids for pain. From spinal (unknown) (no (unknown) (unknown) established with (units (unknown) date) a primary care. unknown) (unknown) (no (unknown) (unknown) exam does show (units (unknown) date) radicular changes unknown) but is inconsistent throughout exam. (unknown) (no (unknown) (unknown) extremities (units (un known) date) unknown) (unknown) (no (unknown) (unknown) fenofibrate (units (un known) date) micronized 134 mg unknown) 134 mg PO DAILY 11/01/20 11/01/20 (unknown) (no (unknown) (unknown) fenofibrate (units (un known) date) micronized 134 mg unknown) capsule (unknown) (no (unknown) (unknown) found to have (units (u nknown) date) stress test which unknown) showed old fixed infarct but nothing new an echo (unknown) (no (unknown) (unknown) guarding or (units (un known) date) rebound, rigidity, unknown) no mass (unknown) (no (unknown) (unknown) he has (units (unkno wn) date) paresthesias down unknown) his left legs. He states it is quite painful he states (unknown) (no (unknown) (unknown) he states it is (units (unknown) date) sort of across his unknown) chest. He denies radiation elsewhere but (unknown) (no (unknown) (unknown) his medications (units (unknown) date) regularly. He unknown) states this feels very similar to his visit in (unknown) (no (unknown) (unknown) hospital. (units (unkn own) date) unknown) (unknown) (no (unknown) (unknown) hours. He states (units (unknown) date) no diaphoresis, no unknown) shortness of breath, no nausea or vomiting (unknown) (no (unknown) (unknown) household (units (unkn own) date) members: unknown) significant other (unknown) (no (unknown) (unknown) intact (units (unkno wn) date) unknown) (unknown) (no (unknown) (unknown) left lower (units (unk nown) date) abdomen. Patient's unknown) gait is not tested initially. Rectal exam is (unknown) (no (unknown) (unknown) losartan 25 mg (units (unknown) date) tablet 25 mg PO unknown) DAILY #90 tabs 03/30/22 (unknown) (no (unknown) (unknown) losartan 25 mg (units (unknown) date) tablet unknown) (unknown) (no (unknown) (unknown) lower (units (unkno wn) date) extremities. unknown) Sensation is intact in the lower extremities. (unknown) (no (unknown) (unknown) metformin 500 mg (units (unknown) date) tablet 500 mg PO unknown) BID #180 tabs 03/30/22 (unknown) (no (unknown) (unknown) metformin 500 mg (units (unknown) date) tablet unknown) (unknown) (no (unknown) (unknown) metoprolol (units (unk nown) date) succinate 25 mg 25 unknown) mg PO DAILY #90 tabs 03/30/22 (unknown) (no (unknown) (unknown) metoprolol (units (unk nown) date) succinate 25 mg unknown) tablet extended release 24 hr (unknown) (no (unknown) (unknown) moist mucous (units (u nknown) date) membranes unknown) (unknown) (no (unknown) (unknown) movement of the (units (unknown) date) left leg but can unknown) adjust himself in the bed without issue. DTRs (unknown) (no (unknown) (unknown) naproxen sodium (units (unknown) date) 220 mg capsule 220 unknown) mg PO BID 03/28/22 03/28/22 (unknown) (no (unknown) (unknown) naproxen sodium (units (unknown) date) [Aleve] 220 mg unknown) Capsule (unknown) (no (unknown) (unknown) no other ischemic (units (unknown) date) changes and an EF unknown) of 40%. Unclear if patient has been taking (unknown) (no (unknown) (unknown) oxycodone 10 mg (units (unknown) date) and that was unknown) helpful. States his only surgeries or for his low (unknown) (no (unknown) (unknown) oxycodone 5 mg (units (unknown) date) tablet 5 mg PO unknown) Q8HR PRN Pain. #20 tabs 03/30/22 (unknown) (no (unknown) (unknown) oxycodone 5 mg (units (unknown) date) tablet unknown) (unknown) (no (unknown) (unknown) pantoprazole 40 (units (unknown) date) mg PO BID ##0 unknown) 11/01/20 (unknown) (no (unknown) (unknown) pantoprazole (units (u nknown) date) tablet unknown) (unknown) (no (unknown) (unknown) perspective (units (un known) date) patient can be DC unknown) home and does not require being seen in the (unknown) (no (unknown) (unknown) quarter to a 3rd (units (unknown) date) pack daily, unknown) occasional alcohol, no illicit. He has not (unknown) (no (unknown) (unknown) release (units (unkno wn) date) unknown) (unknown) (no (unknown) (unknown) sometimes he has (units (unknown) date) weakness in that unknown) leg but not currently. He denies fevers, cold (unknown) (no (unknown) (unknown) states he had (units ( unknown) date) aspirin, nitro unknown) sublingual x3 and morphine EN route with EMS and (unknown) (no (unknown) (unknown) states that he is (units (unknown) date) not any pain unknown) medication for his back but used to be on (unknown) (no (unknown) (unknown) tablet,extended (units (unknown) date) release 24 hr unknown) (unknown) (no (unknown) (unknown) tamsulosin 0.4 mg (units (unknown) date) capsule (Flomax) unknown) 0.4 mg PO BEDTIME #90 caps 03/30/22 (unknown) (no (unknown) (unknown) tamsulosin (units (unk nown) date) [Flomax] 0.4 mg unknown) Capsule (unknown) (no (unknown) (unknown) that he was (units (un known) date) restarted on his unknown) medications unclear if he is taking them daily (unknown) (no (unknown) (unknown) that it changed (units (unknown) date) nothing about his unknown) chest pain or his back pain. States this is (unknown) (no (unknown) (unknown) took it 4 weeks (units (unknown) date) ago. unknown) (unknown) (no (unknown) (unknown) very similar to (units (unknown) date) when he was here unknown) in March and admitted at that time he was (unknown) (no (unknown) (unknown) with EF of 40-55% (units (unknown) date) and a lumbar MRI unknown) which showed no cord compression or stenosis Result panel 601 (unknown) (no (unknown) (unknown) (no value) (units (unk nown) date) unknown) (unknown) (no (unknown) (unknown) (Aleve) (units (unkno wn) date) unknown) (unknown) (no (unknown) (unknown) 0.4 mg PO BEDTIME (units (unknown) date) Qty: 90 0RF unknown) (unknown) (no (unknown) (unknown) 10/31/20 (units (unkno wn) date) unknown) (unknown) (no (unknown) (unknown) 11/01/20 (units (unkno wn) date) unknown) (unknown) (no (unknown) (unknown) 03/28/22 (units (unkno wn) date) unknown) (unknown) (no (unknown) (unknown) 03/29/22 (units (unkno wn) date) unknown) (unknown) (no (unknown) (unknown) 04/30/22 04/30/22 (units (unknown) date) 04/30/22 unknown) Range/Units (unknown) (no (unknown) (unknown) 04/30/22 19:01 (units (unknown) date) unknown) (unknown) (no (unknown) (unknown) 04/30/22 19:06 (units (unknown) date) unknown) (unknown) (no (unknown) (unknown) 04/30/22 19:10 (units (unknown) date) unknown) (unknown) (no (unknown) (unknown) 04/30/22 19:50 (units (unknown) date) unknown) (unknown) (no (unknown) (unknown) 04/30/22 21:00 (units (unknown) date) unknown) (unknown) (no (unknown) (unknown) 04/30/22 (units (unkno wn) date) Range/Units unknown) (unknown) (no (unknown) (unknown) 04/30/22 (units (unkno wn) date) unknown) (unknown) (no (unknown) (unknown) [address] (units (unknown) date) unknown) (unknown) (no (unknown) (unknown) 134 mg PO DAILY (units (unknown) date) unknown) (unknown) (no (unknown) (unknown) 18:59 04/30/22 (units (unknown) date) unknown) (unknown) (no (unknown) (unknown) 19:00 04/30/22 (units (unknown) date) unknown) (unknown) (no (unknown) (unknown) 19:00 (units (unkno wn) date) unknown) (unknown) (no (unknown) (unknown) 19:01 19:01 19:01 (units (unknown) date) unknown) (unknown) (no (unknown) (unknown) 19:01 19:06 19:50 (units (unknown) date) unknown) (unknown) (no (unknown) (unknown) 19:02 04/30/22 (units (unknown) date) unknown) (unknown) (no (unknown) (unknown) 19:15 04/30/22 (units (unknown) date) unknown) (unknown) (no (unknown) (unknown) 19:15 (units (unkno wn) date) unknown) (unknown) (no (unknown) (unknown) 19:30 04/30/22 (units (unknown) date) unknown) (unknown) (no (unknown) (unknown) 19:51 04/30/22 (units (unknown) date) unknown) (unknown) (no (unknown) (unknown) 19:51 (units (unkno wn) date) unknown) (unknown) (no (unknown) (unknown) 20:00 04/30/22 (units (unknown) date) unknown) (unknown) (no (unknown) (unknown) 20:00 (units (unkno wn) date) unknown) (unknown) (no (unknown) (unknown) 20:30 04/30/22 (units (unknown) date) unknown) (unknown) (no (unknown) (unknown) 21:00 (units (unkno wn) date) unknown) (unknown) (no (unknown) (unknown) 220 mg PO BID (units ( unknown) date) unknown) (unknown) (no (unknown) (unknown) 23:01[place] (units (unknown) date) unknown) (unknown) (no (unknown) (unknown) 25 mg PO DAILY (units (unknown) date) Qty: 90 0RF unknown) (unknown) (no (unknown) (unknown) 2847 (units (unkno wn) date) unknown) (unknown) (no (unknown) (unknown) 40 mg PO BID Qty: (units (unknown) date) 0 0RF unknown) (unknown) (no (unknown) (unknown) 40 mg PO DAILY (units (unknown) date) Qty: 90 0RF unknown) (unknown) (no (unknown) (unknown) 5 MG PO Q8HR As (units (unknown) date) Needed for Pain unknown) (unknown) (no (unknown) (unknown) 5 mg PO Q8HR PRN (units (unknown) date) (Reason: Pain.) unknown) Qty: 20 0RF (unknown) (no (unknown) (unknown) 500 mg PO BID (units ( unknown) date) Qty: 180 0RF unknown) (unknown) (no (unknown) (unknown) 81 mg PO DAILY (units (unknown) date) Qty: 9 0RF unknown) (unknown) (no (unknown) (unknown) ? (units (unkno wn) date) unknown) (unknown) (no (unknown) (unknown) ABDOMEN: Soft, (units (unknown) date) nontender. unknown) Normoactive bowel sounds all 4 quadrants. No (unknown) (no (unknown) (unknown) ALT (<50) IU/L (units (unknown) date) unknown) (unknown) (no (unknown) (unknown) ALT 42 (<50) IU/L (units (unknown) date) unknown) (unknown) (no (unknown) (unknown) AST (17-59) IU/L (units (unknown) date) unknown) (unknown) (no (unknown) (unknown) AST 49 (17-59) (units (unknown) date) IU/L unknown) (unknown) (no (unknown) (unknown) Abdomen (units (unkno wn) date) Ultrasound unknown) (Signed) (unknown) (no (unknown) (unknown) Abdomen/Pelvis CT (units (unknown) date) (Signed) unknown) (unknown) (no (unknown) (unknown) Accession Number: (units (unknown) date) [id number] ?? unknown) (unknown) (no (unknown) (unknown) Acct:[id number] (units (unknown) date) unknown) (unknown) (no (unknown) (unknown) Age/Sex: 66 / M (units (unknown) date) unknown) (unknown) (no (unknown) (unknown) Albumin (3.5-5.0) (units (unknown) date) g/dL unknown) (unknown) (no (unknown) (unknown) Albumin 3.9 (units (un known) date) (3.5-5.0) g/dL unknown) (unknown) (no (unknown) (unknown) Albumin/Globulin (units (unknown) date) Ratio (1.0-2.8) unknown) (unknown) (no (unknown) (unknown) Albumin/Globulin (units (unknown) date) Ratio 1.4 unknown) (1.0-2.8) (unknown) (no (unknown) (unknown) Alkaline (units (unkno wn) date) Phosphatase unknown) (38-126) U/L (unknown) (no (unknown) (unknown) Alkaline (units (unkno wn) date) Phosphatase 100 unknown) (38-126) U/L (unknown) (no (unknown) (unknown) Allergies (units (unkn own) date) unknown) (unknown) (no (unknown) (unknown) Allergy/AdvReac (units (unknown) date) Type Severity unknown) Reaction Status Date / Time (unknown) (no (unknown) (unknown) [place] (units ( unknown) date) [id number] unknown) (unknown) (no (unknown) (unknown) Approved by: (units (u nknown) date) jovon Mancuso M.D. on 04/30/2022 at 19:20?? (unknown) (no (unknown) (unknown) Attestation: I (units (unknown) date) personally unknown) reviewed and interpreted this ECG as follows: (unknown) (no (unknown) (unknown) BACK: No (units (unkno wn) date) cervical, thoracic unknown) or lumbar vertebral point tenderness. Patient has (unknown) (no (unknown) (unknown) BNP [NT-proBNP (units (unknown) date) (BNP-Adult 18+)] unknown) Stat (unknown) (no (unknown) (unknown) BUN (9-20) mg/dL (units (unknown) date) unknown) (unknown) (no (unknown) (unknown) BUN 7 L (9-20) (units (unknown) date) mg/dL unknown) (unknown) (no (unknown) (unknown) BUN/Creatinine (units (unknown) date) Ratio (6-22) unknown) (unknown) (no (unknown) (unknown) BUN/Creatinine (units (unknown) date) Ratio 10.6 (6-22) unknown) (unknown) (no (unknown) (unknown) Baso # (Auto) (units ( unknown) date) (0-100) /uL unknown) (unknown) (no (unknown) (unknown) Baso # (Auto) 200 (units (unknown) date) H (0-100) /uL unknown) (unknown) (no (unknown) (unknown) Baso % (Auto) (units ( unknown) date) (0-2) % unknown) (unknown) (no (unknown) (unknown) Baso % (Auto) 2.0 (units (unknown) date) (0-2) % unknown) (unknown) (no (unknown) (unknown) Blood Pressure (units (unknown) date) 104/69 unknown) (unknown) (no (unknown) (unknown) Blood Pressure (units (unknown) date) 105/73 unknown) (unknown) (no (unknown) (unknown) Blood Pressure (units (unknown) date) 109/67 107/64 unknown) (unknown) (no (unknown) (unknown) Blood Pressure (units (unknown) date) 110/62 112/66 unknown) (unknown) (no (unknown) (unknown) Blood Pressure (units (unknown) date) 98/68 98/68 unknown) (unknown) (no (unknown) (unknown) Blood Pressure (units (unknown) date) unknown) (unknown) (no (unknown) (unknown) Bones and chest (units (unknown) date) wall:? No unknown) suspicious bony lesions.? Age-appropriate bony (unknown) (no (unknown) (unknown) CARDIOVASCULAR: (units (unknown) date) Regular rate and unknown) rhythm without murmurs, rubs or gallops. (unknown) (no (unknown) (unknown) CK-MB (CK-2) Rel (units (unknown) date) Index TNP unknown) (unknown) (no (unknown) (unknown) CK-MB (CK-2) Rel (units (unknown) date) Index unknown) (unknown) (no (unknown) (unknown) CK-MB (CK-2) TNP (units (unknown) date) unknown) (unknown) (no (unknown) (unknown) CK-MB (CK-2) (units (u nknown) date) unknown) (unknown) (no (unknown) (unknown) COMPARISON:? (units (u nknown) date) [facility], unknown) CT, CT ANGIO CHEST PE PROTOCOL, 03/28/2022, (unknown) (no (unknown) (unknown) Calcium (units (unkno wn) date) (8.4-10.2) mg/dL unknown) (unknown) (no (unknown) (unknown) Calcium 8.1 L (units ( unknown) date) (8.4-10.2) mg/dL unknown) (unknown) (no (unknown) (unknown) Call,Michele (units (unk nown) date) unknown) (unknown) (no (unknown) (unknown) Carbon Dioxide (units (unknown) date) (22-32) mmol/L unknown) (unknown) (no (unknown) (unknown) Carbon Dioxide 17 (units (unknown) date) L (22-32) mmol/L unknown) (unknown) (no (unknown) (unknown) Chest CTA (units (unkn own) date) (Signed) unknown) (unknown) (no (unknown) (unknown) Chest X-Ray (units (un known) date) (Signed) unknown) (unknown) (no (unknown) (unknown) Chest x-ray: (units (u nknown) date) unknown) (unknown) (no (unknown) (unknown) Chief Complaint: (units (unknown) date) Chest Pain unknown) (unknown) (no (unknown) (unknown) Chloride (98-107) (units (unknown) date) mmol/L unknown) (unknown) (no (unknown) (unknown) Chloride 104 (units (u nknown) date) (98-107) mmol/L unknown) (unknown) (no (unknown) (unknown) Close (units (unkno wn) date) unknown) (unknown) (no (unknown) (unknown) Complete Blood (units (unknown) date) Count AUTO DIFF unknown) Stat (unknown) (no (unknown) (unknown) Comprehensive (units ( unknown) date) Metabolic Panel unknown) Stat (unknown) (no (unknown) (unknown) Consultation #1: (units (unknown) date) unknown) (unknown) (no (unknown) (unknown) Consultation #2: (units (unknown) date) unknown) (unknown) (no (unknown) (unknown) Consultations (units ( unknown) date) unknown) (unknown) (no (unknown) (unknown) Coronary artery (units (unknown) date) disease unknown) (unknown) (no (unknown) (unknown) Course (units (unkno wn) date) unknown) (unknown) (no (unknown) (unknown) Covid-19 + FLU (units (unknown) date) A/B + RSV - PCR unknown) Stat (unknown) (no (unknown) (unknown) Creatinine (units (unk nown) date) (0.66-1.25) mg/dL unknown) (unknown) (no (unknown) (unknown) Creatinine 0.66 (units (unknown) date) (0.66-1.25) mg/dL unknown) (unknown) (no (unknown) (unknown) : 1955 (units (unknown) date) Acct:[id number] unknown) (unknown) (no (unknown) (unknown) : 1955 (units (unknown) date) unknown) (unknown) (no (unknown) (unknown) Date of Service: (units (unknown) date) 04/30/22 unknown) (unknown) (no (unknown) (unknown) Departure (units (unkn own) date) unknown) (unknown) (no (unknown) (unknown) Diabetes type 2, (units (unknown) date) uncontrolled unknown) (unknown) (no (unknown) (unknown) Dictated by: (units (u nknown) date) jovon Mancuso M.D. on 04/30/2022 at 19:20 ? ? (unknown) (no (unknown) (unknown) Discharge Plan (units (unknown) date) unknown) (unknown) (no (unknown) (unknown) Discontinued (units (u nknown) date) Medications unknown) (unknown) (no (unknown) (unknown) Documented By: (units (unknown) date) JESÚS unknown) (unknown) (no (unknown) (unknown) Chaitanya Hodge (units (u nknown) date) unknown) (unknown) (no (unknown) (unknown) Dr. Caicedo, (units (u nknown) date) cardiology unknown) recommends repeat 4 hour troponin from initial if still (unknown) (no (unknown) (unknown) Dr. John, (units (unkno wn) date) orthopedic unknown) surgery. Reviewed patient's MRI from March 29, 2022 his (unknown) (no (unknown) (unknown) ECG Data (units (unkno wn) date) unknown) (unknown) (no (unknown) (unknown) ED Orders (units (unkn own) date) unknown) (unknown) (no (unknown) (unknown) EKG-12 Lead Stat (units (unknown) date) unknown) (unknown) (no (unknown) (unknown) ER Physician: (units ( unknown) date) Emma Stevens D.O. unknown) (unknown) (no (unknown) (unknown) ETOH [Ethanol (units ( unknown) date) (ETOH)] Stat unknown) (unknown) (no (unknown) (unknown) EXTREMITIES: (units (u nknown) date) Normal range of unknown) motion, no clubbing or edema. Neurovascularly (unknown) (no (unknown) (unknown) Echocardiogram (units (unknown) date) Ultrasound unknown) (Signed) (unknown) (no (unknown) (unknown) Elevated blood (units (unknown) date) alcohol level unknown) (unknown) (no (unknown) (unknown) Emergency Report (units (unknown) date) unknown) (unknown) (no (unknown) (unknown) Eos # (Auto) (units (u nknown) date) (0-450) /uL unknown) (unknown) (no (unknown) (unknown) Eos # (Auto) 300 (units (unknown) date) (0-450) /uL unknown) (unknown) (no (unknown) (unknown) Eos % (Auto) (units (u nknown) date) (2-4) % unknown) (unknown) (no (unknown) (unknown) Eos % (Auto) 3.5 (units (unknown) date) (2-4) % unknown) (unknown) (no (unknown) (unknown) Estimated GFR > (units (unknown) date) 60 (>60) mL/min unknown) (unknown) (no (unknown) (unknown) Estimated GFR (units ( unknown) date) (>60) mL/min unknown) (unknown) (no (unknown) (unknown) Ethyl Alcohol ( - (units (unknown) date) 10) mg/dL unknown) (unknown) (no (unknown) (unknown) Ethyl Alcohol 133 (units (unknown) date) H ( - 10) mg/dL unknown) (unknown) (no (unknown) (unknown) Exam Narrative: (units (unknown) date) unknown) (unknown) (no (unknown) (unknown) Exam (units (unkno wn) date) unknown) (unknown) (no (unknown) (unknown) FINDINGS:? (units (unk nown) date) unknown) (unknown) (no (unknown) (unknown) Family History (units (unknown) date) (Reviewed 04/30/22 unknown) @ 19:35 by Emma Stevens DO) (unknown) (no (unknown) (unknown) Father (units (unknown) date) Lung cancer unknown) (unknown) (no (unknown) (unknown) Flomax and on his (units (unknown) date) diabetic unknown) medications and heart medications. Patient does note (unknown) (no (unknown) (unknown) GENERAL: Alert (units (unknown) date) and oriented x unknown) three, male in mild distress (unknown) (no (unknown) (unknown) : No CVA (units (unk nown) date) tenderness unknown) (unknown) (no (unknown) (unknown) General (units (unkno wn) date) unknown) (unknown) (no (unknown) (unknown) Globulin (units (unkno wn) date) (1.7-4.1) g/dL unknown) (unknown) (no (unknown) (unknown) Globulin 2.8 (units (u nknown) date) (1.7-4.1) g/dL unknown) (unknown) (no (unknown) (unknown) Glucose (80-110) (units (unknown) date) mg/dL unknown) (unknown) (no (unknown) (unknown) Glucose 206 H (units ( unknown) date) (80-110) mg/dL unknown) (unknown) (no (unknown) (unknown) H/O heart artery (units (unknown) date) stent unknown) (unknown) (no (unknown) (unknown) HEENT: Head (units (un known) date) normocephalic, unknown) atraumatic, EOMI, pupils reactive, face symmetric, (unknown) (no (unknown) (unknown) HPI - Chest Pain (units (unknown) date) unknown) (unknown) (no (unknown) (unknown) HPI narrative: (units (unknown) date) unknown) (unknown) (no (unknown) (unknown) Hct (41-53) % (units ( unknown) date) unknown) (unknown) (no (unknown) (unknown) Hct 44.2 (41-53) (units (unknown) date) % unknown) (unknown) (no (unknown) (unknown) Hgb (13.5-17.5) (units (unknown) date) g/dL unknown) (unknown) (no (unknown) (unknown) Hgb 15.4 (units (unkno wn) date) (13.5-17.5) g/dL unknown) (unknown) (no (unknown) (unknown) History of (units (unk nown) date) Present Illness unknown) (unknown) (no (unknown) (unknown) Home Medications (units (unknown) date) unknown) (unknown) (no (unknown) (unknown) Hospital, CR, XR (units (unknown) date) CHEST 1V, unknown) 03/28/2022, 18:51. (unknown) (no (unknown) (unknown) IMPRESSION:? (units (u nknown) date) unknown) (unknown) (no (unknown) (unknown) INDICATIONS:? (units ( unknown) date) chest pain unknown) (unknown) (no (unknown) (unknown) Imaging Data (units (u nknown) date) unknown) (unknown) (no (unknown) (unknown) Influenza A (units (un known) date) (RT-PCR) unknown) (NEGATIVE) (unknown) (no (unknown) (unknown) Influenza A (units (un known) date) (RT-PCR) Flu a unknown) negative (NEGATIVE) (unknown) (no (unknown) (unknown) Influenza B (units (un known) date) (RT-PCR) unknown) (NEGATIVE) (unknown) (no (unknown) (unknown) Influenza B (units (un known) date) (RT-PCR) Flu b unknown) negative (NEGATIVE) (unknown) (no (unknown) (unknown) Initial Vital (units ( unknown) date) Signs unknown) (unknown) (no (unknown) (unknown) Initial Vital (units ( unknown) date) Signs: unknown) (unknown) (no (unknown) (unknown) Interpretation: (units (unknown) date) unknown) (unknown) (no (unknown) (unknown) [facility] (units (unknown) date) [address] unknown) [place] [address] (unknown) (no (unknown) (unknown) [facility] (units (unknown) date) unknown) (unknown) (no (unknown) (unknown) Mikael Coyle (units ( unknown) date) unknown) (unknown) (no (unknown) (unknown) Lab Data (units (unkno wn) date) unknown) (unknown) (no (unknown) (unknown) Lab Results (units (un known) date) unknown) (unknown) (no (unknown) (unknown) Label Comments: (units (unknown) date) unknown) (unknown) (no (unknown) (unknown) Labs: (units (unkno wn) date) unknown) (unknown) (no (unknown) (unknown) Last Admin: (units (un known) date) 04/30/22 20:00 unknown) Dose: 10 mg (unknown) (no (unknown) (unknown) Launch?Image (units (u nknown) date) unknown) (unknown) (no (unknown) (unknown) Limitations: no (units (unknown) date) limitations unknown) (unknown) (no (unknown) (unknown) Limited portable (units (unknown) date) chest examination, unknown) without a significant cardiopulmonary (unknown) (no (unknown) (unknown) Lipase (23-300) (units (unknown) date) U/L unknown) (unknown) (no (unknown) (unknown) Lipase 381 H (units (u nknown) date) (23-300) U/L unknown) (unknown) (no (unknown) (unknown) Lipase Stat (units (un known) date) unknown) (unknown) (no (unknown) (unknown) Loc: ED (units (unkno wn) date) unknown) (unknown) (no (unknown) (unknown) Lumbar Spine MRI (units (unknown) date) (Cancelled) unknown) (unknown) (no (unknown) (unknown) Lumbar Spine MRI (units (unknown) date) (Signed) unknown) (unknown) (no (unknown) (unknown) Lungs and (units (unkn own) date) pleura:? On this unknown) semiupright portable chest examination, no large (unknown) (no (unknown) (unknown) Lymph # (Auto) (units (unknown) date) (3833-4074) /uL unknown) (unknown) (no (unknown) (unknown) Lymph # (Auto) (units (unknown) date) 2900 (1014-8997) unknown) /uL (unknown) (no (unknown) (unknown) Lymph % (Auto) (units (unknown) date) (25-40) % unknown) (unknown) (no (unknown) (unknown) Lymph % (Auto) (units (unknown) date) 33.9 (25-40) % unknown) (unknown) (no (unknown) (unknown) MCH (26-34) PG (units (unknown) date) unknown) (unknown) (no (unknown) (unknown) MCH 30.3 (26-34) (units (unknown) date) PG unknown) (unknown) (no (unknown) (unknown) MCHC (30-36) % (units (unknown) date) unknown) (unknown) (no (unknown) (unknown) MCHC 34.9 (30-36) (units (unknown) date) % unknown) (unknown) (no (unknown) (unknown) MCV (80-100) fL (units (unknown) date) unknown) (unknown) (no (unknown) (unknown) MCV 86.9 (80-100) (units (unknown) date) fL unknown) (unknown) (no (unknown) (unknown) MDM - Chest Pain (units (unknown) date) unknown) (unknown) (no (unknown) (unknown) MDM Narrative (units ( unknown) date) unknown) (unknown) (no (unknown) (unknown) MR#: [id number] (units (unknown) date) unknown) (unknown) (no (unknown) (unknown) MRI at that time (units (unknown) date) which showed disc unknown) bulge but no stenosis or emergent changes. (unknown) (no (unknown) (unknown) Magnesium (units (unkn own) date) (1.6-2.3) mg/dL unknown) (unknown) (no (unknown) (unknown) Magnesium 1.6 (units ( unknown) date) (1.6-2.3) mg/dL unknown) (unknown) (no (unknown) (unknown) Magnesium Stat (units (unknown) date) unknown) (unknown) (no (unknown) (unknown) Mediastinum:? (units ( unknown) date) Mediastinal unknown) contours appear normal.? Heart size is normal.? (unknown) (no (unknown) (unknown) Medical History (units (unknown) date) (Reviewed 04/30/22 unknown) @ 19:35 by Emma Stevens DO) (unknown) (no (unknown) (unknown) Medical decision (units (unknown) date) making narrative: unknown) (unknown) (no (unknown) (unknown) Medication (units (unk nown) date) Instructions unknown) Recorded Confirmed (unknown) (no (unknown) (unknown) Medication (units (unk nown) date) Instructions unknown) Recorded (unknown) (no (unknown) (unknown) Radha Dunn (units (unknown) date) unknown) (unknown) (no (unknown) (unknown) Miscellaneous,Doc (units (unknown) date) MD shaggy [Primary unknown) Care Provider] (unknown) (no (unknown) (unknown) Mode of arrival: (units (unknown) date) EMS unknown) (unknown) (no (unknown) (unknown) [place] # (Auto) (units ( unknown) date) (0-900) /uL unknown) (unknown) (no (unknown) (unknown) [place] # (Auto) 800 (units (unknown) date) (0-900) /uL unknown) (unknown) (no (unknown) (unknown) [place] % (Auto) (units ( unknown) date) (3-14) % unknown) (unknown) (no (unknown) (unknown) [place] % (Auto) 8.9 (units (unknown) date) (3-14) % unknown) (unknown) (no (unknown) (unknown) [facility] (units (unknown) date) history unknown unknown) (unknown) (no (unknown) (unknown) Myocardial (units (unk nown) date) Perfusion Scan Nuc unknown) Med (Signed) (unknown) (no (unknown) (unknown) NECK: Supple, (units ( unknown) date) full range of unknown) motion (unknown) (no (unknown) (unknown) NEUROLOGICAL: (units ( unknown) date) Cranial nerves II unknown) through XII grossly intact. Moving all (unknown) (no (unknown) (unknown) NT-Pro-B (units (unkno wn) date) Natriuret Pep unknown) (<125) pg/mL (unknown) (no (unknown) (unknown) NT-Pro-B (units (unkno wn) date) Natriuret Pep 246 unknown) H (<125) pg/mL (unknown) (no (unknown) (unknown) Narrative (units (unkn own) date) unknown) (unknown) (no (unknown) (unknown) Neut # (Auto) (units ( unknown) date) (0022-6486) /uL unknown) (unknown) (no (unknown) (unknown) Neut # (Auto) (units ( unknown) date) 4500 (6791-0831) unknown) /uL (unknown) (no (unknown) (unknown) Neut % (Auto) (units ( unknown) date) (50-75) % unknown) (unknown) (no (unknown) (unknown) Neut % (Auto) (units ( unknown) date) 51.7 (50-75) % unknown) (unknown) (no (unknown) (unknown) No Action (units (unkn own) date) unknown) (unknown) (no (unknown) (unknown) No Known Drug (units ( unknown) date) Allergies Allergy unknown) Verified 10/31/20 23:10 (unknown) (no (unknown) (unknown) No focal (units (unkno wn) date) unknown) (unknown) (no (unknown) (unknown) March as well (units (unknown) date) as low back pain unknown) and radicular symptoms. Patient had an lumbar (unknown) (no (unknown) (unknown) March. EKG does (units (unknown) date) show new ST unknown) depression, initial troponin is negative, patient (unknown) (no (unknown) (unknown) Ordered: (units (unkno wn) date) unknown) (unknown) (no (unknown) (unknown) Ordering (units (unkno wn) date) Provider: unknown) Emma Stevens D.O. (unknown) (no (unknown) (unknown) Orders (units (unkno wn) date) unknown) (unknown) (no (unknown) (unknown) Oxycodone HCl (units ( unknown) date) (Oxycodone Ir 5 Mg unknown) Tablet) 10 mg PO NOW ONE (unknown) (no (unknown) (unknown) Oxygen Delivery (units (unknown) date) Method Room Air unknown) (unknown) (no (unknown) (unknown) Oxygen Delivery (units (unknown) date) Method unknown) (unknown) (no (unknown) (unknown) PROCEDURE:? XR (units (unknown) date) CHEST 1V unknown) (unknown) (no (unknown) (unknown) Patient History (units (unknown) date) unknown) (unknown) (no (unknown) (unknown) Patient's did have (units (unknown) date) stress testing at unknown) that time which had a fixed wall defect but (unknown) (no (unknown) (unknown) Patient: (units (unkno wn) date) Frank Chan MR#: unknown) [id number] (unknown) (no (unknown) (unknown) Patient: (units (unkno wn) date) Ren Chantvan unknown) (unknown) (no (unknown) (unknown) Donavon Fonseca (units (un known) date) unknown) (unknown) (no (unknown) (unknown) Plt Count (units (unkn own) date) (150-400) X103/uL unknown) (unknown) (no (unknown) (unknown) Plt Count 159 (units ( unknown) date) (150-400) X103/uL unknown) (unknown) (no (unknown) (unknown) Potassium (units (unkn own) date) (3.4-5.1) mmol/L unknown) (unknown) (no (unknown) (unknown) Potassium 4.2 (units ( unknown) date) (3.4-5.1) mmol/L unknown) (unknown) (no (unknown) (unknown) Prescriptions: (units (unknown) date) unknown) (unknown) (no (unknown) (unknown) Previous Rx's (units ( unknown) date) unknown) (unknown) (no (unknown) (unknown) Procedure: XR (units ( unknown) date) chest 1V unknown) (unknown) (no (unknown) (unknown) Pulse Oximetry 94 (units (unknown) date) 93 unknown) (unknown) (no (unknown) (unknown) Pulse Oximetry 94 (units (unknown) date) unknown) (unknown) (no (unknown) (unknown) Pulse Oximetry 95 (units (unknown) date) 04/30/22 18:59 unknown) (unknown) (no (unknown) (unknown) Pulse Oximetry 95 (units (unknown) date) 97 unknown) (unknown) (no (unknown) (unknown) Pulse Oximetry 95 (units (unknown) date) unknown) (unknown) (no (unknown) (unknown) Pulse Oximetry 97 (units (unknown) date) 95 unknown) (unknown) (no (unknown) (unknown) Pulse Rate 79 (units ( unknown) date) unknown) (unknown) (no (unknown) (unknown) Pulse Rate 81 (units ( unknown) date) unknown) (unknown) (no (unknown) (unknown) Pulse Rate 84 (units ( unknown) date) unknown) (unknown) (no (unknown) (unknown) Pulse Rate 91 H (units (unknown) date) 04/30/22 18:59 unknown) (unknown) (no (unknown) (unknown) Pulse Rate 92 H (units (unknown) date) 91 H unknown) (unknown) (no (unknown) (unknown) Pulse Rate 93 H (units (unknown) date) 86 unknown) (unknown) (no (unknown) (unknown) RBC (4.5-5.9) (units ( unknown) date) X106/uL unknown) (unknown) (no (unknown) (unknown) RBC 5.09 (units (unkno wn) date) (4.5-5.9) X106/uL unknown) (unknown) (no (unknown) (unknown) RDW (11.6-14.8) % (units (unknown) date) unknown) (unknown) (no (unknown) (unknown) RDW 13.4 (units (unkno wn) date) (11.6-14.8) % unknown) (unknown) (no (unknown) (unknown) RESPIRATORY: (units (u nknown) date) Breath sounds unknown) equal bilaterally, no wheezes rales or rhonchi. (unknown) (no (unknown) (unknown) ROS Unobtainable: (units (unknown) date) All systems unknown) reviewed + are unremarkable except as noted in HPI (unknown) (no (unknown) (unknown) RSV (PCR) (units (unkn own) date) (Negative) unknown) (unknown) (no (unknown) (unknown) RSV (PCR) (units (unkn own) date) Negative unknown) (Negative) (unknown) (no (unknown) (unknown) Radiologist's (units ( unknown) date) Impression: unknown) (unknown) (no (unknown) (unknown) Referrals: (units (unk nown) date) unknown) (unknown) (no (unknown) (unknown) Related Data (units (u nknown) date) unknown) (unknown) (no (unknown) (unknown) Respiratory Rate (units (unknown) date) 12 13 unknown) (unknown) (no (unknown) (unknown) Respiratory Rate (units (unknown) date) 13 unknown) (unknown) (no (unknown) (unknown) Respiratory Rate (units (unknown) date) 14 unknown) (unknown) (no (unknown) (unknown) Respiratory Rate (units (unknown) date) 15 unknown) (unknown) (no (unknown) (unknown) Respiratory Rate (units (unknown) date) 17 15 unknown) (unknown) (no (unknown) (unknown) Respiratory Rate (units (unknown) date) 18 19 unknown) (unknown) (no (unknown) (unknown) Respiratory Rate (units (unknown) date) 19 04/30/22 18:59 unknown) (unknown) (no (unknown) (unknown) Result diagrams: (units (unknown) date) unknown) (unknown) (no (unknown) (unknown) Review of Systems (units (unknown) date) unknown) (unknown) (no (unknown) (unknown) Abdulkadir Garcia (units (u nknown) date) unknown) (unknown) (no (unknown) (unknown) SARS-CoV-2 (PCR) (units (unknown) date) (Negative) unknown) (unknown) (no (unknown) (unknown) SARS-CoV-2 (PCR) (units (unknown) date) Negative unknown) (Negative) (unknown) (no (unknown) (unknown) SKIN: Warm, dry, (units (unknown) date) no petechiae, no unknown) rashes or lesions. (unknown) (no (unknown) (unknown) Signed By: (units (unk nown) date) unknown) (unknown) (no (unknown) (unknown) Signed (units (unkno wn) date) unknown) (unknown) (no (unknown) (unknown) Sinus rhythm rate (units (unknown) date) 80 6p are 146 QRS unknown) of 106 and QTC of 464. No acute ST (unknown) (no (unknown) (unknown) Smoking Status: (units (unknown) date) Current every day unknown) smoker (unknown) (no (unknown) (unknown) Social History (units (unknown) date) (Reviewed 04/30/22 unknown) @ 19:35 by Emma Stevens DO) (unknown) (no (unknown) (unknown) Sodium (137-145) (units (unknown) date) mmol/L unknown) (unknown) (no (unknown) (unknown) Sodium 138 (units (unk nown) date) (137-145) mmol/L unknown) (unknown) (no (unknown) (unknown) Source: patient, (units (unknown) date) EMS, RN notes unknown) reviewed and old records reviewed (unknown) (no (unknown) (unknown) Stated Complaint: (units (unknown) date) Chest pain unknown) (unknown) (no (unknown) (unknown) Stop: 04/30/22 (units (unknown) date) 19:40 unknown) (unknown) (no (unknown) (unknown) Substance Use (units ( unknown) date) Type: does not use unknown) (unknown) (no (unknown) (unknown) Surgical History (units (unknown) date) (Reviewed 04/30/22 unknown) @ 19:35 by Emma Stevens DO) (unknown) (no (unknown) (unknown) Surgical changes (units (unknown) date) and devices:? unknown) None.? (unknown) (no (unknown) (unknown) TECHNIQUE:? One (units (unknown) date) view of the chest unknown) was acquired.? (unknown) (no (unknown) (unknown) Telemetry Strips (units (unknown) date) unknown) (unknown) (no (unknown) (unknown) Temperature 98.3 (units (unknown) date) F unknown) (unknown) (no (unknown) (unknown) Temperature (units (un known) date) unknown) (unknown) (no (unknown) (unknown) This is a (units (unkn own) date) 66-year-old male unknown) who presents with recurrent chest pain similar to (unknown) (no (unknown) (unknown) This is a (units (unkn own) date) 66-year-old male unknown) with complaint of chest, low back pain that radiates (unknown) (no (unknown) (unknown) Time Seen by (units (u nknown) date) Provider: 04/30/22 unknown) 18:56 (unknown) (no (unknown) (unknown) Time: 20:03 (units (un known) date) unknown) (unknown) (no (unknown) (unknown) Time: 22:21 (units (un known) date) unknown) (unknown) (no (unknown) (unknown) Total Bilirubin (units (unknown) date) (0.2-1.3) mg/dL unknown) (unknown) (no (unknown) (unknown) Total Bilirubin (units (unknown) date) 1.1 (0.2-1.3) unknown) mg/dL (unknown) (no (unknown) (unknown) Total Creatine (units (unknown) date) Kinase (55-170) unknown) U/L (unknown) (no (unknown) (unknown) Total Creatine (units (unknown) date) Kinase 44 L unknown) (55-170) U/L (unknown) (no (unknown) (unknown) Total Protein (units ( unknown) date) (6.3-8.2) g/dL unknown) (unknown) (no (unknown) (unknown) Total Protein 6.7 (units (unknown) date) (6.3-8.2) g/dL unknown) (unknown) (no (unknown) (unknown) Trop I [Troponin (units (unknown) date) I] Stat unknown) (unknown) (no (unknown) (unknown) Troponin + CK (units ( unknown) date) Cardiac Panel Stat unknown) (unknown) (no (unknown) (unknown) Troponin I < (units (u nknown) date) 0.012 (0.01-0.034) unknown) ng/mL (unknown) (no (unknown) (unknown) Troponin I (units (unk nown) date) (0.01-0.034) ng/mL unknown) (unknown) (no (unknown) (unknown) Troponin I 0.013 (units (unknown) date) (0.01-0.034) ng/mL unknown) (unknown) (no (unknown) (unknown) UA Complete (units (un known) date) [Urinalysis and unknown) Microscopic] Stat (unknown) (no (unknown) (unknown) Ur Culture (units (unk nown) date) Indicated? Cult unknown) not indicated (unknown) (no (unknown) (unknown) Ur Culture (units (unk nown) date) Indicated? unknown) (unknown) (no (unknown) (unknown) Ur Leukocyte (units (u nknown) date) Esterase unknown) (NEGATIVE) (unknown) (no (unknown) (unknown) Ur Leukocyte (units (u nknown) date) Esterase Negative unknown) (NEGATIVE) (unknown) (no (unknown) (unknown) Ur Specific (units (un known) date) [place] <=1.005 unknown) (1.000-1.035) (unknown) (no (unknown) (unknown) Ur Specific (units (un known) date) [place] unknown) (1.000-1.035) (unknown) (no (unknown) (unknown) Urine Appearance (units (unknown) date) Clear unknown) (unknown) (no (unknown) (unknown) Urine Appearance (units (unknown) date) unknown) (unknown) (no (unknown) (unknown) Urine Bacteria (units (unknown) date) (None) unknown) (unknown) (no (unknown) (unknown) Urine Bacteria (units (unknown) date) None seen (None) unknown) (unknown) (no (unknown) (unknown) Urine Bilirubin (units (unknown) date) (NEGATIVE) unknown) (unknown) (no (unknown) (unknown) Urine Bilirubin (units (unknown) date) Negative unknown) (NEGATIVE) (unknown) (no (unknown) (unknown) Urine Color (units (un known) date) Yellow unknown) (unknown) (no (unknown) (unknown) Urine Color (units (un known) date) unknown) (unknown) (no (unknown) (unknown) Urine Glucose (units ( unknown) date) (UA) (Negative) unknown) g/dL (unknown) (no (unknown) (unknown) Urine Glucose (units ( unknown) date) (UA) 1+ H unknown) (Negative) g/dL (unknown) (no (unknown) (unknown) Urine Ketones (units ( unknown) date) (NEGATIVE) unknown) (unknown) (no (unknown) (unknown) Urine Ketones (units ( unknown) date) Negative unknown) (NEGATIVE) (unknown) (no (unknown) (unknown) Urine Nitrate (units ( unknown) date) (Negative) unknown) (unknown) (no (unknown) (unknown) Urine Nitrate (units ( unknown) date) Negative unknown) (Negative) (unknown) (no (unknown) (unknown) Urine Occult (units (u nknown) date) Blood (Negative) unknown) (unknown) (no (unknown) (unknown) Urine Occult (units (u nknown) date) Blood Negative unknown) (Negative) (unknown) (no (unknown) (unknown) Urine Protein (units ( unknown) date) (Negative) unknown) (unknown) (no (unknown) (unknown) Urine Protein (units ( unknown) date) Negative unknown) (Negative) (unknown) (no (unknown) (unknown) Urine RBC (units (unkn own) date) (0-5/HPF) unknown) (unknown) (no (unknown) (unknown) Urine RBC None (units (unknown) date) seen (0-5/HPF) unknown) (unknown) (no (unknown) (unknown) Urine (units (unkno wn) date) Urobilinogen (0.2) unknown) E.U./dL (unknown) (no (unknown) (unknown) Urine (units (unkno wn) date) Urobilinogen 0.2 unknown) (0.2) E.U./dL (unknown) (no (unknown) (unknown) Urine WBC (units (unkn own) date) (0-5/HPF) unknown) (unknown) (no (unknown) (unknown) Urine WBC None (units (unknown) date) seen (0-5/HPF) unknown) (unknown) (no (unknown) (unknown) Urine pH (units (unkno wn) date) (4.5-8.0) unknown) (unknown) (no (unknown) (unknown) Urine pH 5.5 (units (u nknown) date) (4.5-8.0) unknown) (unknown) (no (unknown) (unknown) Vital Signs - 8 (units (unknown) date) hr unknown) (unknown) (no (unknown) (unknown) Vital Signs (units (un known) date) unknown) (unknown) (no (unknown) (unknown) Vital signs: (units (u nknown) date) unknown) (unknown) (no (unknown) (unknown) WBC (4.5-11.0) (units (unknown) date) X103/uL unknown) (unknown) (no (unknown) (unknown) WBC 8.6 (units (unkno wn) date) (4.5-11.0) X103/uL unknown) (unknown) (no (unknown) (unknown) XR chest 1V Stat (units (unknown) date) unknown) (unknown) (no (unknown) (unknown) XRay Report (units (un known) date) unknown) (unknown) (no (unknown) (unknown) [Embedded Image (units (unknown) date) Not Available] unknown) (unknown) (no (unknown) (unknown) [normal sphincter (units (unknown) date) tone/decreased unknown) tone/no tone/deferred or refused]. Patient has (unknown) (no (unknown) (unknown) abnormality (units (un known) date) unknown) (unknown) (no (unknown) (unknown) admitted for (units (u nknown) date) atypical chest unknown) pain, low back pain and acute urinary retention and (unknown) (no (unknown) (unknown) alcohol intake: (units (unknown) date) former unknown) (unknown) (no (unknown) (unknown) and below (units (unkn own) date) unknown) (unknown) (no (unknown) (unknown) and negative (units (u nknown) date) range feels unknown) patient is appropriate to discharge from a cardiac (unknown) (no (unknown) (unknown) are 2/4 and lower (units (unknown) date) extremities. unknown) Dorsalis pedis and tibialis pulses are 2+ and (unknown) (no (unknown) (unknown) aspirin 81 mg (units ( unknown) date) Tablet,Delayed unknown) Release (Dr/Ec) (unknown) (no (unknown) (unknown) aspirin 81 mg (units ( unknown) date) tablet,delayed 81 unknown) mg PO DAILY #9 tabs 03/30/22 (unknown) (no (unknown) (unknown) atorvastatin 40 (units (unknown) date) mg tablet unknown) (Lipitor) 40 mg PO DAILY #90 tabs 03/30/22 (unknown) (no (unknown) (unknown) atorvastatin (units (u nknown) date) [Lipitor] 40 mg unknown) tablet (unknown) (no (unknown) (unknown) back in 1992. No (units (unknown) date) known drug unknown) allergies. He does use tobacco and smokes a (unknown) (no (unknown) (unknown) but a new urinary (units (unknown) date) retention with a L unknown) in his bladder he was discharged home on (unknown) (no (unknown) (unknown) capsule (units (unkno wn) date) unknown) (unknown) (no (unknown) (unknown) changed from (units (u nknown) date) 10-[address] unknown) elevation. (unknown) (no (unknown) (unknown) changes are seen. (units (unknown) date) ? Overlying soft unknown) tissues appear unremarkable.? (unknown) (no (unknown) (unknown) cough or (units (unkno wn) date) congestion. He unknown) denies any bladder or fecal incontinence. Patient (unknown) (no (unknown) (unknown) current findings (units (unknown) date) today, at this unknown) time he states nonsurgical does not require (unknown) (no (unknown) (unknown) decreased range (units (unknown) date) of motion. Patient unknown) has pain and discomfort particularly in the (unknown) (no (unknown) (unknown) degenerative (units (u nknown) date) unknown) (unknown) (no (unknown) (unknown) difficulty with (units (unknown) date) dorsiflexion on unknown) the left foot. He endorses difficulty with (unknown) (no (unknown) (unknown) does have low back (units (unknown) date) pain which unknown) radiates particularly down his left leg and states (unknown) (no (unknown) (unknown) down his legs. (units (unknown) date) Patient states the unknown) chest pain has been present for the last 4-6 (unknown) (no (unknown) (unknown) elevation. (units (unk nown) date) T-waves are unknown) inverted in lateral leads V3 through V 5 which appears (unknown) (no (unknown) (unknown) emergent (units (unkno wn) date) treatment. He unknown) would recommend oral steroids for pain. From spinal (unknown) (no (unknown) (unknown) established with (units (unknown) date) a primary care. unknown) (unknown) (no (unknown) (unknown) exam does show (units (unknown) date) radicular changes unknown) but is inconsistent throughout exam. 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 He states it is quite painful he states (unknown) (no (unknown) (unknown) he states it is (units (unknown) date) sort of across his unknown) chest. He denies radiation elsewhere but (unknown) (no (unknown) (unknown) his medications (units (unknown) date) regularly. He unknown) states this feels very similar to his visit in (unknown) (no (unknown) (unknown) hospital. (units (unkn own) date) unknown) (unknown) (no (unknown) (unknown) hours. He states (units (unknown) date) no diaphoresis, no unknown) shortness of breath, no nausea or vomiting (unknown) (no (unknown) (unknown) household (units (unkn own) date) members: unknown) significant other (unknown) (no (unknown) (unknown) identified.? (units (u nknown) date) unknown) (unknown) (no (unknown) (unknown) incomplete (units (unk nown) date) unknown) (unknown) (no (unknown) (unknown) infiltrates are (units (unknown) date) seen.? No unknown) pneumothorax or significant pleural effusions are (unknown) (no (unknown) (unknown) inspiratory result (units (unknown) date) is noted, causing unknown) a crowded appearance to the lung markings.? (unknown) (no (unknown) (unknown) intact (units (unkno wn) date) unknown) (unknown) (no (unknown) (unknown) left lower (units (unk nown) date) abdomen. Patient's unknown) gait is not tested initially. Rectal exam is (unknown) (no (unknown) (unknown) losartan 25 mg (units (unknown) date) tablet 25 mg PO unknown) DAILY #90 tabs 03/30/22 (unknown) (no (unknown) (unknown) losartan 25 mg (units (unknown) date) tablet unknown) (unknown) (no (unknown) (unknown) lower (units (unkno wn) date) extremities. unknown) Sensation is intact in the lower extremities. (unknown) (no (unknown) (unknown) metformin 500 mg (units (unknown) date) tablet 500 mg PO unknown) BID #180 tabs 03/30/22 (unknown) (no (unknown) (unknown) metformin 500 mg (units (unknown) date) tablet unknown) (unknown) (no (unknown) (unknown) metoprolol (units (unk nown) date) succinate 25 mg 25 unknown) mg PO DAILY #90 tabs 03/30/22 (unknown) (no (unknown) (unknown) metoprolol (units (unk nown) date) succinate 25 mg unknown) tablet extended release 24 hr (unknown) (no (unknown) (unknown) moist mucous (units (u nknown) date) membranes unknown) (unknown) (no (unknown) (unknown) movement of the (units (unknown) date) left leg but can unknown) adjust himself in the bed without issue. DTRs (unknown) (no (unknown) (unknown) naproxen sodium (units (unknown) date) 220 mg capsule 220 unknown) mg PO BID 03/28/22 03/28/22 (unknown) (no (unknown) (unknown) naproxen sodium (units (unknown) date) [Aleve] 220 mg unknown) Capsule (unknown) (no (unknown) (unknown) no other ischemic (units (unknown) date) changes and an EF unknown) of 40%. Unclear if patient has been taking (unknown) (no (unknown) (unknown) or large pleural (units (unknown) date) effusions are unknown) seen.? No focal infiltrates are seen.? An (unknown) (no (unknown) (unknown) oxycodone 10 mg (units (unknown) date) and that was unknown) helpful. States his only surgeries or for his low (unknown) (no (unknown) (unknown) oxycodone 5 mg (units (unknown) date) tablet 5 mg PO unknown) Q8HR PRN Pain. #20 tabs 03/30/22 (unknown) (no (unknown) (unknown) oxycodone 5 mg (units (unknown) date) tablet unknown) (unknown) (no (unknown) (unknown) pantoprazole 40 (units (unknown) date) mg PO BID ##0 unknown) 11/01/20 (unknown) (no (unknown) (unknown) pantoprazole (units (u nknown) date) tablet unknown) (unknown) (no (unknown) (unknown) perspective (units (un known) date) patient can be DC unknown) home and does not require being seen in the (unknown) (no (unknown) (unknown) pneumothorax (units (u nknown) date) unknown) (unknown) (no (unknown) (unknown) quarter to a 3rd (units (unknown) date) pack daily, unknown) occasional alcohol, no illicit. He has not (unknown) (no (unknown) (unknown) release (units (unkno wn) date) unknown) (unknown) (no (unknown) (unknown) seen. ? (units (unkno wn) date) unknown) (unknown) (no (unknown) (unknown) sometimes he has (units (unknown) date) weakness in that unknown) leg but not currently. He denies fevers, cold (unknown) (no (unknown) (unknown) standpoint. (units (un known) date) Review patient's unknown) ST changes today. His myocardial perfusion stress (unknown) (no (unknown) (unknown) states he had (units ( unknown) date) aspirin, nitro unknown) sublingual x3 and morphine EN route with EMS and (unknown) (no (unknown) (unknown) states that he is (units (unknown) date) not any pain unknown) medication for his back but used to be on (unknown) (no (unknown) (unknown) tablet,extended (units (unknown) date) release 24 hr unknown) (unknown) (no (unknown) (unknown) tamsulosin 0.4 mg (units (unknown) date) capsule (Flomax) unknown) 0.4 mg PO BEDTIME #90 caps 03/30/22 (unknown) (no (unknown) (unknown) tamsulosin (units (unk nown) date) [Flomax] 0.4 mg unknown) Capsule (unknown) (no (unknown) (unknown) that he was (units (un known) date) restarted on his unknown) medications unclear if he is taking them daily (unknown) (no (unknown) (unknown) that it changed (units (unknown) date) nothing about his unknown) chest pain or his back pain. States this is (unknown) (no (unknown) (unknown) took it 4 weeks (units (unknown) date) ago. unknown) (unknown) (no (unknown) (unknown) very similar to (units (unknown) date) when he was here unknown) in March and admitted at that time he was (unknown) (no (unknown) (unknown) with EF of 40-55% (units (unknown) date) and a lumbar MRI unknown) which showed no cord compression or stenosis Result panel 602 (unknown) (no (unknown) (unknown) (no value) (units (unk nown) date) unknown) (unknown) (no (unknown) (unknown) (Aleve) (units (unkno wn) date) unknown) (unknown) (no (unknown) (unknown) 0.4 mg PO BEDTIME (units (unknown) date) Qty: 90 0RF unknown) (unknown) (no (unknown) (unknown) 10/31/20 (units (unkno wn) date) unknown) (unknown) (no (unknown) (unknown) 11/01/20 (units (unkno wn) date) unknown) (unknown) (no (unknown) (unknown) 03/28/22 (units (unkno wn) date) unknown) (unknown) (no (unknown) (unknown) 03/29/22 (units (unkno wn) date) unknown) (unknown) (no (unknown) (unknown) 04/30/22 04/30/22 (units (unknown) date) 04/30/22 unknown) Range/Units (unknown) (no (unknown) (unknown) 04/30/22 19:01 (units (unknown) date) unknown) (unknown) (no (unknown) (unknown) 04/30/22 19:06 (units (unknown) date) unknown) (unknown) (no (unknown) (unknown) 04/30/22 19:10 (units (unknown) date) unknown) (unknown) (no (unknown) (unknown) 04/30/22 19:50 (units (unknown) date) unknown) (unknown) (no (unknown) (unknown) 04/30/22 21:00 (units (unknown) date) unknown) (unknown) (no (unknown) (unknown) 04/30/22 23:30 (units (unknown) date) unknown) (unknown) (no (unknown) (unknown) 04/30/22 23:38 (units (unknown) date) unknown) (unknown) (no (unknown) (unknown) 04/30/22 (units (unkno wn) date) Range/Units unknown) (unknown) (no (unknown) (unknown) 04/30/22 (units (unkno wn) date) unknown) (unknown) (no (unknown) (unknown) [address] (units (unknown) date) unknown) (unknown) (no (unknown) (unknown) 134 mg PO DAILY (units (unknown) date) unknown) (unknown) (no (unknown) (unknown) 18:59 04/30/22 (units (unknown) date) unknown) (unknown) (no (unknown) (unknown) 19:00 04/30/22 (units (unknown) date) unknown) (unknown) (no (unknown) (unknown) 19:00 (units (unkno wn) date) unknown) (unknown) (no (unknown) (unknown) 19:01 19:01 19:01 (units (unknown) date) unknown) (unknown) (no (unknown) (unknown) 19:01 19:06 19:50 (units (unknown) date) unknown) (unknown) (no (unknown) (unknown) 19:02 04/30/22 (units (unknown) date) unknown) (unknown) (no (unknown) (unknown) 19:15 04/30/22 (units (unknown) date) unknown) (unknown) (no (unknown) (unknown) 19:15 (units (unkno wn) date) unknown) (unknown) (no (unknown) (unknown) 19:30 04/30/22 (units (unknown) date) unknown) (unknown) (no (unknown) (unknown) 19:51 04/30/22 (units (unknown) date) unknown) (unknown) (no (unknown) (unknown) 19:51 (units (unkno wn) date) unknown) (unknown) (no (unknown) (unknown) 20:00 04/30/22 (units (unknown) date) unknown) (unknown) (no (unknown) (unknown) 20:00 (units (unkno wn) date) unknown) (unknown) (no (unknown) (unknown) 20:30 04/30/22 (units (unknown) date) unknown) (unknown) (no (unknown) (unknown) 21:00 04/30/22 (units (unknown) date) unknown) (unknown) (no (unknown) (unknown) 21:00 (units (unkno wn) date) unknown) (unknown) (no (unknown) (unknown) 21:30 04/30/22 (units (unknown) date) unknown) (unknown) (no (unknown) (unknown) 21:30 (units (unkno wn) date) unknown) (unknown) (no (unknown) (unknown) 220 mg PO BID (units ( unknown) date) unknown) (unknown) (no (unknown) (unknown) 22:00 04/30/22 (units (unknown) date) unknown) (unknown) (no (unknown) (unknown) 22:30 04/30/22 (units (unknown) date) unknown) (unknown) (no (unknown) (unknown) 22:30 (units (unkno wn) date) unknown) (unknown) (no (unknown) (unknown) 23:00 04/30/22 (units (unknown) date) unknown) (unknown) (no (unknown) (unknown) 23:00 (units (unkno wn) date) unknown) (unknown) (no (unknown) (unknown) 23:01.? [place] (units (unknown) date) unknown) (unknown) (no (unknown) (unknown) 23:30 04/30/22 (units (unknown) date) unknown) (unknown) (no (unknown) (unknown) 23:30 (units (unkno wn) date) unknown) (unknown) (no (unknown) (unknown) 25 mg PO DAILY (units (unknown) date) Qty: 90 0RF unknown) (unknown) (no (unknown) (unknown) 2847 (units (unkno wn) date) unknown) (unknown) (no (unknown) (unknown) 40 mg PO BID Qty: (units (unknown) date) 0 0RF unknown) (unknown) (no (unknown) (unknown) 40 mg PO DAILY (units (unknown) date) Qty: 90 0RF unknown) (unknown) (no (unknown) (unknown) 5 MG PO Q8HR As (units (unknown) date) Needed for Pain unknown) (unknown) (no (unknown) (unknown) 5 mg PO Q8HR PRN (units (unknown) date) (Reason: Pain.) unknown) Qty: 20 0RF (unknown) (no (unknown) (unknown) 500 mg PO BID (units ( unknown) date) Qty: 180 0RF unknown) (unknown) (no (unknown) (unknown) 81 mg PO DAILY (units (unknown) date) Qty: 9 0RF unknown) (unknown) (no (unknown) (unknown) ? (units (unkno wn) date) unknown) (unknown) (no (unknown) (unknown) ABDOMEN: Soft, (units (unknown) date) nontender. unknown) Normoactive bowel sounds all 4 quadrants. No (unknown) (no (unknown) (unknown) ALT (<50) IU/L (units (unknown) date) unknown) (unknown) (no (unknown) (unknown) ALT 42 (<50) IU/L (units (unknown) date) unknown) (unknown) (no (unknown) (unknown) AST (17-59) IU/L (units (unknown) date) unknown) (unknown) (no (unknown) (unknown) AST 49 (17-59) (units (unknown) date) IU/L unknown) (unknown) (no (unknown) (unknown) Abdomen (units (unkno wn) date) Ultrasound unknown) (Signed) (unknown) (no (unknown) (unknown) Abdomen/Pelvis CT (units (unknown) date) (Signed) unknown) (unknown) (no (unknown) (unknown) Accession Number: (units (unknown) date) [id number] ?? unknown) (unknown) (no (unknown) (unknown) Acct:[id number] (units (unknown) date) unknown) (unknown) (no (unknown) (unknown) Age/Sex: 66 / M (units (unknown) date) unknown) (unknown) (no (unknown) (unknown) Albumin (3.5-5.0) (units (unknown) date) g/dL unknown) (unknown) (no (unknown) (unknown) Albumin 3.9 (units (un known) date) (3.5-5.0) g/dL unknown) (unknown) (no (unknown) (unknown) Albumin/Globulin (units (unknown) date) Ratio (1.0-2.8) unknown) (unknown) (no (unknown) (unknown) Albumin/Globulin (units (unknown) date) Ratio 1.4 unknown) (1.0-2.8) (unknown) (no (unknown) (unknown) Alkaline (units (unkno wn) date) Phosphatase unknown) (38-126) U/L (unknown) (no (unknown) (unknown) Alkaline (units (unkno wn) date) Phosphatase 100 unknown) (38-126) U/L (unknown) (no (unknown) (unknown) Allergies (units (unkn own) date) unknown) (unknown) (no (unknown) (unknown) Allergy/AdvReac (units (unknown) date) Type Severity unknown) Reaction Status Date / Time (unknown) (no (unknown) (unknown) AJIT [place] (units ( unknown) date) [id number] unknown) (unknown) (no (unknown) (unknown) Approved by: (units (u nknown) date) Mikael Coyle, unknown) Gina on 04/30/2022 at 19:20?? (unknown) (no (unknown) (unknown) Attestation: I (units (unknown) date) personally unknown) reviewed and interpreted this ECG as follows: (unknown) (no (unknown) (unknown) BACK: No (units (unkno wn) date) cervical, thoracic unknown) or lumbar vertebral point tenderness. Patient has (unknown) (no (unknown) (unknown) BNP [NT-proBNP (units (unknown) date) (BNP-Adult 18+)] unknown) Stat (unknown) (no (unknown) (unknown) BUN (9-20) mg/dL (units (unknown) date) unknown) (unknown) (no (unknown) (unknown) BUN 7 L (9-20) (units (unknown) date) mg/dL unknown) (unknown) (no (unknown) (unknown) BUN/Creatinine (units (unknown) date) Ratio (6-22) unknown) (unknown) (no (unknown) (unknown) BUN/Creatinine (units (unknown) date) Ratio 10.6 (6-22) unknown) (unknown) (no (unknown) (unknown) Baso # (Auto) (units ( unknown) date) (0-100) /uL unknown) (unknown) (no (unknown) (unknown) Baso # (Auto) 200 (units (unknown) date) H (0-100) /uL unknown) (unknown) (no (unknown) (unknown) Baso % (Auto) (units ( unknown) date) (0-2) % unknown) (unknown) (no (unknown) (unknown) Baso % (Auto) 2.0 (units (unknown) date) (0-2) % unknown) (unknown) (no (unknown) (unknown) Blood Pressure (units (unknown) date) 104/69 unknown) (unknown) (no (unknown) (unknown) Blood Pressure (units (unknown) date) 105/73 unknown) (unknown) (no (unknown) (unknown) Blood Pressure (units (unknown) date) 108/65 unknown) (unknown) (no (unknown) (unknown) Blood Pressure (units (unknown) date) 109/60 97/61 unknown) (unknown) (no (unknown) (unknown) Blood Pressure (units (unknown) date) 109/60 unknown) (unknown) (no (unknown) (unknown) Blood Pressure (units (unknown) date) 109/67 107/64 unknown) (unknown) (no (unknown) (unknown) Blood Pressure (units (unknown) date) 110/62 112/66 unknown) (unknown) (no (unknown) (unknown) Blood Pressure (units (unknown) date) 137/72 unknown) (unknown) (no (unknown) (unknown) Blood Pressure (units (unknown) date) 98/68 98/68 unknown) (unknown) (no (unknown) (unknown) Bones and chest (units (unknown) date) wall:? No unknown) suspicious bony lesions.? Age-appropriate bony (unknown) (no (unknown) (unknown) CARDIOVASCULAR: (units (unknown) date) Regular rate and unknown) rhythm without murmurs, rubs or gallops. (unknown) (no (unknown) (unknown) CK-MB (CK-2) Rel (units (unknown) date) Index TNP unknown) (unknown) (no (unknown) (unknown) CK-MB (CK-2) Rel (units (unknown) date) Index unknown) (unknown) (no (unknown) (unknown) CK-MB (CK-2) TNP (units (unknown) date) unknown) (unknown) (no (unknown) (unknown) CK-MB (CK-2) (units (u nknown) date) unknown) (unknown) (no (unknown) (unknown) COMPARISON:? (units (u nknown) date) [facility], unknown) CT, CT ANGIO CHEST PE PROTOCOL, 03/28/2022, (unknown) (no (unknown) (unknown) Calcium (units (unkno wn) date) (8.4-10.2) mg/dL unknown) (unknown) (no (unknown) (unknown) Calcium 8.1 L (units ( unknown) date) (8.4-10.2) mg/dL unknown) (unknown) (no (unknown) (unknown) Call,Michele (units (unk nown) date) unknown) (unknown) (no (unknown) (unknown) Carbon Dioxide (units (unknown) date) (22-32) mmol/L unknown) (unknown) (no (unknown) (unknown) Carbon Dioxide 17 (units (unknown) date) L (22-32) mmol/L unknown) (unknown) (no (unknown) (unknown) Chest CTA (units (unkn own) date) (Signed) unknown) (unknown) (no (unknown) (unknown) Chest X-Ray (units (un known) date) (Signed) unknown) (unknown) (no (unknown) (unknown) Chest x-ray: (units (u nknown) date) unknown) (unknown) (no (unknown) (unknown) Chief Complaint: (units (unknown) date) Chest Pain unknown) (unknown) (no (unknown) (unknown) Chloride (98-107) (units (unknown) date) mmol/L unknown) (unknown) (no (unknown) (unknown) Chloride 104 (units (u nknown) date) (98-107) mmol/L unknown) (unknown) (no (unknown) (unknown) Close (units (unkno wn) date) unknown) (unknown) (no (unknown) (unknown) Complete Blood (units (unknown) date) Count AUTO DIFF unknown) Stat (unknown) (no (unknown) (unknown) Comprehensive (units ( unknown) date) Metabolic Panel unknown) Stat (unknown) (no (unknown) (unknown) Consultation #1: (units (unknown) date) unknown) (unknown) (no (unknown) (unknown) Consultation #2: (units (unknown) date) unknown) (unknown) (no (unknown) (unknown) Consultations (units ( unknown) date) unknown) (unknown) (no (unknown) (unknown) Coronary artery (units (unknown) date) disease unknown) (unknown) (no (unknown) (unknown) Course (units (unkno wn) date) unknown) (unknown) (no (unknown) (unknown) Covid-19 + FLU (units (unknown) date) A/B + RSV - PCR unknown) Stat (unknown) (no (unknown) (unknown) Creatinine (units (unk nown) date) (0.66-1.25) mg/dL unknown) (unknown) (no (unknown) (unknown) Creatinine 0.66 (units (unknown) date) (0.66-1.25) mg/dL unknown) (unknown) (no (unknown) (unknown) : 1955 (units (unknown) date) Acct:[id number] unknown) (unknown) (no (unknown) (unknown) : 1955 (units (unknown) date) unknown) (unknown) (no (unknown) (unknown) Date of Service: (units (unknown) date) 04/30/22 unknown) (unknown) (no (unknown) (unknown) Departure (units (unkn own) date) unknown) (unknown) (no (unknown) (unknown) Diabetes type 2, (units (unknown) date) uncontrolled unknown) (unknown) (no (unknown) (unknown) Dictated by: (units (u nknown) date) Mikael Coyle, unknown) Gina on 04/30/2022 at 19:20 ? ? (unknown) (no (unknown) (unknown) Discharge Plan (units (unknown) date) unknown) (unknown) (no (unknown) (unknown) Discontinued (units (u nknown) date) Medications unknown) (unknown) (no (unknown) (unknown) Documented By: (units (unknown) date) JESÚS unknown) (unknown) (no (unknown) (unknown) Chaitanya Hodge (units (u nknown) date) unknown) (unknown) (no (unknown) (unknown) Dr. Caicedo, (units (u nknown) date) cardiology unknown) recommends repeat 4 hour troponin from initial if still (unknown) (no (unknown) (unknown) Dr. John, (units (unkno wn) date) orthopedic unknown) surgery. Reviewed patient's MRI from March 29, 2022 his (unknown) (no (unknown) (unknown) ECG Data (units (unkno wn) date) unknown) (unknown) (no (unknown) (unknown) ED Orders (units (unkn own) date) unknown) (unknown) (no (unknown) (unknown) EKG-12 Lead Stat (units (unknown) date) unknown) (unknown) (no (unknown) (unknown) ER Physician: (units ( unknown) date) Emma Stevens D.O. unknown) (unknown) (no (unknown) (unknown) ETOH [Ethanol (units ( unknown) date) (ETOH)] Stat unknown) (unknown) (no (unknown) (unknown) EXTREMITIES: (units (u nknown) date) Normal range of unknown) motion, no clubbing or edema. Neurovascularly (unknown) (no (unknown) (unknown) Echocardiogram (units (unknown) date) Ultrasound unknown) (Signed) (unknown) (no (unknown) (unknown) Elevated blood (units (unknown) date) alcohol level unknown) (unknown) (no (unknown) (unknown) Emergency Report (units (unknown) date) unknown) (unknown) (no (unknown) (unknown) Eos # (Auto) (units (u nknown) date) (0-450) /uL unknown) (unknown) (no (unknown) (unknown) Eos # (Auto) 300 (units (unknown) date) (0-450) /uL unknown) (unknown) (no (unknown) (unknown) Eos % (Auto) (units (u nknown) date) (2-4) % unknown) (unknown) (no (unknown) (unknown) Eos % (Auto) 3.5 (units (unknown) date) (2-4) % unknown) (unknown) (no (unknown) (unknown) Estimated GFR > (units (unknown) date) 60 (>60) mL/min unknown) (unknown) (no (unknown) (unknown) Estimated GFR (units ( unknown) date) (>60) mL/min unknown) (unknown) (no (unknown) (unknown) Ethyl Alcohol ( - (units (unknown) date) 10) mg/dL unknown) (unknown) (no (unknown) (unknown) Ethyl Alcohol 133 (units (unknown) date) H ( - 10) mg/dL unknown) (unknown) (no (unknown) (unknown) Exam Narrative: (units (unknown) date) unknown) (unknown) (no (unknown) (unknown) Exam (units (unkno wn) date) unknown) (unknown) (no (unknown) (unknown) FINDINGS:? (units (unk nown) date) unknown) (unknown) (no (unknown) (unknown) Family History (units (unknown) date) (Reviewed 04/30/22 unknown) @ 19:35 by Emma Stevens DO) (unknown) (no (unknown) (unknown) Father (units (unknown) date) Lung cancer unknown) (unknown) (no (unknown) (unknown) Flomax and on his (units (unknown) date) diabetic unknown) medications and heart medications. Patient does note (unknown) (no (unknown) (unknown) GENERAL: Alert (units (unknown) date) and oriented x unknown) three, male in mild distress (unknown) (no (unknown) (unknown) : No CVA (units (unk nown) date) tenderness unknown) (unknown) (no (unknown) (unknown) General (units (unkno wn) date) unknown) (unknown) (no (unknown) (unknown) Globulin (units (unkno wn) date) (1.7-4.1) g/dL unknown) (unknown) (no (unknown) (unknown) Globulin 2.8 (units (u nknown) date) (1.7-4.1) g/dL unknown) (unknown) (no (unknown) (unknown) Glucose (80-110) (units (unknown) date) mg/dL unknown) (unknown) (no (unknown) (unknown) Glucose 206 H (units ( unknown) date) (80-110) mg/dL unknown) (unknown) (no (unknown) (unknown) H/O heart artery (units (unknown) date) stent unknown) (unknown) (no (unknown) (unknown) HEENT: Head (units (un known) date) normocephalic, unknown) atraumatic, EOMI, pupils reactive, face symmetric, (unknown) (no (unknown) (unknown) HPI - Chest Pain (units (unknown) date) unknown) (unknown) (no (unknown) (unknown) HPI narrative: (units (unknown) date) unknown) (unknown) (no (unknown) (unknown) Hct (41-53) % (units ( unknown) date) unknown) (unknown) (no (unknown) (unknown) Hct 44.2 (41-53) (units (unknown) date) % unknown) (unknown) (no (unknown) (unknown) Hgb (13.5-17.5) (units (unknown) date) g/dL unknown) (unknown) (no (unknown) (unknown) Hgb 15.4 (units (unkno wn) date) (13.5-17.5) g/dL unknown) (unknown) (no (unknown) (unknown) History of (units (unk nown) date) Present Illness unknown) (unknown) (no (unknown) (unknown) Home Medications (units (unknown) date) unknown) (unknown) (no (unknown) (unknown) Hospital, CR, XR (units (unknown) date) CHEST 1V, unknown) 03/28/2022, 18:51. (unknown) (no (unknown) (unknown) IMPRESSION:? (units (u nknown) date) unknown) (unknown) (no (unknown) (unknown) INDICATIONS:? (units ( unknown) date) chest pain unknown) (unknown) (no (unknown) (unknown) Imaging Data (units (u nknown) date) unknown) (unknown) (no (unknown) (unknown) Influenza A (units (un known) date) (RT-PCR) unknown) (NEGATIVE) (unknown) (no (unknown) (unknown) Influenza A (units (un known) date) (RT-PCR) Flu a unknown) negative (NEGATIVE) (unknown) (no (unknown) (unknown) Influenza B (units (un known) date) (RT-PCR) unknown) (NEGATIVE) (unknown) (no (unknown) (unknown) Influenza B (units (un known) date) (RT-PCR) Flu b unknown) negative (NEGATIVE) (unknown) (no (unknown) (unknown) Initial Vital (units ( unknown) date) Signs unknown) (unknown) (no (unknown) (unknown) Initial Vital (units ( unknown) date) Signs: unknown) (unknown) (no (unknown) (unknown) Interpretation: (units (unknown) date) unknown) (unknown) (no (unknown) (unknown) [facility] (units (unknown) date) [address] unknown) [place] [id number] (unknown) (no (unknown) (unknown) [facility] (units (unknown) date) unknown) (unknown) (no (unknown) (unknown) Mikael Coyle (units ( unknown) date) unknown) (unknown) (no (unknown) (unknown) Lab Data (units (unkno wn) date) unknown) (unknown) (no (unknown) (unknown) Lab Results (units (un known) date) unknown) (unknown) (no (unknown) (unknown) Label Comments: (units (unknown) date) unknown) (unknown) (no (unknown) (unknown) Labs: (units (unkno wn) date) unknown) (unknown) (no (unknown) (unknown) Last Admin: (units (un known) date) 04/30/22 20:00 unknown) Dose: 10 mg (unknown) (no (unknown) (unknown) Launch?Image (units (u nknown) date) unknown) (unknown) (no (unknown) (unknown) Limitations: no (units (unknown) date) limitations unknown) (unknown) (no (unknown) (unknown) Limited portable (units (unknown) date) chest examination, unknown) without a significant cardiopulmonary (unknown) (no (unknown) (unknown) Lipase (23-300) (units (unknown) date) U/L unknown) (unknown) (no (unknown) (unknown) Lipase 381 H (units (u nknown) date) (23-300) U/L unknown) (unknown) (no (unknown) (unknown) Lipase Stat (units (un known) date) unknown) (unknown) (no (unknown) (unknown) Loc: ED (units (unkno wn) date) unknown) (unknown) (no (unknown) (unknown) Lumbar Spine MRI (units (unknown) date) (Cancelled) unknown) (unknown) (no (unknown) (unknown) Lumbar Spine MRI (units (unknown) date) (Signed) unknown) (unknown) (no (unknown) (unknown) Lungs and (units (unkn own) date) pleura:? On this unknown) semiupright portable chest examination, no large (unknown) (no (unknown) (unknown) Lymph # (Auto) (units (unknown) date) (8601-6148) /uL unknown) (unknown) (no (unknown) (unknown) Lymph # (Auto) (units (unknown) date) 2900 (3863-3575) unknown) /uL (unknown) (no (unknown) (unknown) Lymph % (Auto) (units (unknown) date) (25-40) % unknown) (unknown) (no (unknown) (unknown) Lymph % (Auto) (units (unknown) date) 33.9 (25-40) % unknown) (unknown) (no (unknown) (unknown) MCH (26-34) PG (units (unknown) date) unknown) (unknown) (no (unknown) (unknown) MCH 30.3 (26-34) (units (unknown) date) PG unknown) (unknown) (no (unknown) (unknown) MCHC (30-36) % (units (unknown) date) unknown) (unknown) (no (unknown) (unknown) MCHC 34.9 (30-36) (units (unknown) date) % unknown) (unknown) (no (unknown) (unknown) MCV (80-100) fL (units (unknown) date) unknown) (unknown) (no (unknown) (unknown) MCV 86.9 (80-100) (units (unknown) date) fL unknown) (unknown) (no (unknown) (unknown) MDM - Chest Pain (units (unknown) date) unknown) (unknown) (no (unknown) (unknown) MDM Narrative (units ( unknown) date) unknown) (unknown) (no (unknown) (unknown) MR#: [id number] (units (unknown) date) unknown) (unknown) (no (unknown) (unknown) MRI at that time (units (unknown) date) which showed disc unknown) bulge but no stenosis or emergent changes. (unknown) (no (unknown) (unknown) Magnesium (units (unkn own) date) (1.6-2.3) mg/dL unknown) (unknown) (no (unknown) (unknown) Magnesium 1.6 (units ( unknown) date) (1.6-2.3) mg/dL unknown) (unknown) (no (unknown) (unknown) Magnesium Stat (units (unknown) date) unknown) (unknown) (no (unknown) (unknown) Mediastinum:? (units ( unknown) date) Mediastinal unknown) contours appear normal.? Heart size is normal.? (unknown) (no (unknown) (unknown) Medical History (units (unknown) date) (Reviewed 04/30/22 unknown) @ 19:35 by Emma Stevens DO) (unknown) (no (unknown) (unknown) Medical decision (units (unknown) date) making narrative: unknown) (unknown) (no (unknown) (unknown) Medication (units (unk nown) date) Instructions unknown) Recorded Confirmed (unknown) (no (unknown) (unknown) Medication (units (unk nown) date) Instructions unknown) Recorded (unknown) (no (unknown) (unknown) Radha Dunn (units (unknown) date) unknown) (unknown) (no (unknown) (unknown) Miscellaneous,Doc (units (unknown) date) MD shaggy [Primary unknown) Care Provider] (unknown) (no (unknown) (unknown) Mode of arrival: (units (unknown) date) EMS unknown) (unknown) (no (unknown) (unknown) [place] # (Auto) (units ( unknown) date) (0-900) /uL unknown) (unknown) (no (unknown) (unknown) [place] # (Auto) 800 (units (unknown) date) (0-900) /uL unknown) (unknown) (no (unknown) (unknown) [place] % (Auto) (units ( unknown) date) (3-14) % unknown) (unknown) (no (unknown) (unknown) [place] % (Auto) 8.9 (units (unknown) date) (3-14) % unknown) (unknown) (no (unknown) (unknown) [facility] (units (unknown) date) history unknown unknown) (unknown) (no (unknown) (unknown) Myocardial (units (unk nown) date) Perfusion Scan Nuc unknown) Med (Signed) (unknown) (no (unknown) (unknown) NECK: Supple, (units ( unknown) date) full range of unknown) motion (unknown) (no (unknown) (unknown) NEUROLOGICAL: (units ( unknown) date) Cranial nerves II unknown) through XII grossly intact. Moving all (unknown) (no (unknown) (unknown) NT-Pro-B (units (unkno wn) date) Natriuret Pep unknown) (<125) pg/mL (unknown) (no (unknown) (unknown) NT-Pro-B (units (unkno wn) date) Natriuret Pep 246 unknown) H (<125) pg/mL (unknown) (no (unknown) (unknown) Narrative (units (unkn own) date) unknown) (unknown) (no (unknown) (unknown) Neut # (Auto) (units ( unknown) date) (2152-0837) /uL unknown) (unknown) (no (unknown) (unknown) Neut # (Auto) (units ( unknown) date) 4500 (5328-1302) unknown) /uL (unknown) (no (unknown) (unknown) Neut % (Auto) (units ( unknown) date) (50-75) % unknown) (unknown) (no (unknown) (unknown) Neut % (Auto) (units ( unknown) date) 51.7 (50-75) % unknown) (unknown) (no (unknown) (unknown) No Action (units (unkn own) date) unknown) (unknown) (no (unknown) (unknown) No Known Drug (units ( unknown) date) Allergies Allergy unknown) Verified 10/31/20 23:10 (unknown) (no (unknown) (unknown) No focal (units (unkno wn) date) unknown) (unknown) (no (unknown) (unknown) March as well (units (unknown) date) as low back pain unknown) and radicular symptoms. Patient had an lumbar (unknown) (no (unknown) (unknown) March. EKG does (units (unknown) date) show new ST unknown) depression, initial troponin is negative, patient (unknown) (no (unknown) (unknown) Ordered: (units (unkno wn) date) unknown) (unknown) (no (unknown) (unknown) Ordering (units (unkno wn) date) Provider: unknown) Emma Stevens D.O. (unknown) (no (unknown) (unknown) Orders (units (unkno wn) date) unknown) (unknown) (no (unknown) (unknown) Oxycodone HCl (units ( unknown) date) (Oxycodone Ir 5 Mg unknown) Tablet) 10 mg PO NOW ONE (unknown) (no (unknown) (unknown) Oxygen Delivery (units (unknown) date) Method Room Air unknown) (unknown) (no (unknown) (unknown) Oxygen Delivery (units (unknown) date) Method unknown) (unknown) (no (unknown) (unknown) PROCEDURE:? 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 (unknown) (no (unknown) (unknown) Patient: (units (unkno wn) date) Ren Chantvan unknown) (unknown) (no (unknown) (unknown) Donavon Fonseca (units (un known) date) unknown) (unknown) (no (unknown) (unknown) Plt Count (units (unkn own) date) (150-400) X103/uL unknown) (unknown) (no (unknown) (unknown) Plt Count 159 (units ( unknown) date) (150-400) X103/uL unknown) (unknown) (no (unknown) (unknown) Potassium (units (unkn own) date) (3.4-5.1) mmol/L unknown) (unknown) (no (unknown) (unknown) Potassium 4.2 (units ( unknown) date) (3.4-5.1) mmol/L unknown) (unknown) (no (unknown) (unknown) Prescriptions: (units (unknown) date) unknown) (unknown) (no (unknown) (unknown) Previous Rx's (units ( unknown) date) unknown) (unknown) (no (unknown) (unknown) Procedure: XR (units ( unknown) date) chest 1V unknown) (unknown) (no (unknown) (unknown) Pulse Oximetry 94 (units (unknown) date) 93 unknown) (unknown) (no (unknown) (unknown) Pulse Oximetry 94 (units (unknown) date) 95 unknown) (unknown) (no (unknown) (unknown) Pulse Oximetry 94 (units (unknown) date) unknown) (unknown) (no (unknown) (unknown) Pulse Oximetry 95 (units (unknown) date) 04/30/22 18:59 unknown) (unknown) (no (unknown) (unknown) Pulse Oximetry 95 (units (unknown) date) 94 unknown) (unknown) (no (unknown) (unknown) Pulse Oximetry 95 (units (unknown) date) 97 unknown) (unknown) (no (unknown) (unknown) Pulse Oximetry 97 (units (unknown) date) 95 unknown) (unknown) (no (unknown) (unknown) Pulse Rate 79 81 (units (unknown) date) unknown) (unknown) (no (unknown) (unknown) Pulse Rate 81 (units ( unknown) date) unknown) (unknown) (no (unknown) (unknown) Pulse Rate 82 79 (units (unknown) date) unknown) (unknown) (no (unknown) (unknown) Pulse Rate 84 (units ( unknown) date) unknown) (unknown) (no (unknown) (unknown) Pulse Rate 91 H (units (unknown) date) 04/30/22 18:59 unknown) (unknown) (no (unknown) (unknown) Pulse Rate 92 H (units (unknown) date) 91 H unknown) (unknown) (no (unknown) (unknown) Pulse Rate 93 H (units (unknown) date) 86 unknown) (unknown) (no (unknown) (unknown) RBC (4.5-5.9) (units ( unknown) date) X106/uL unknown) (unknown) (no (unknown) (unknown) RBC 5.09 (units (unkno wn) date) (4.5-5.9) X106/uL unknown) (unknown) (no (unknown) (unknown) RDW (11.6-14.8) % (units (unknown) date) unknown) (unknown) (no (unknown) (unknown) RDW 13.4 (units (unkno wn) date) (11.6-14.8) % unknown) (unknown) (no (unknown) (unknown) RESPIRATORY: (units (u nknown) date) Breath sounds unknown) equal bilaterally, no wheezes rales or rhonchi. (unknown) (no (unknown) (unknown) ROS Unobtainable: (units (unknown) date) All systems unknown) reviewed + are unremarkable except as noted in HPI (unknown) (no (unknown) (unknown) RSV (PCR) (units (unkn own) date) (Negative) unknown) (unknown) (no (unknown) (unknown) RSV (PCR) (units (unkn own) date) Negative unknown) (Negative) (unknown) (no (unknown) (unknown) Radiologist's (units ( unknown) date) Impression: unknown) (unknown) (no (unknown) (unknown) Referrals: (units (unk nown) date) unknown) (unknown) (no (unknown) (unknown) Related Data (units (u nknown) date) unknown) (unknown) (no (unknown) (unknown) Respiratory Rate (units (unknown) date) 12 13 unknown) (unknown) (no (unknown) (unknown) Respiratory Rate (units (unknown) date) 13 15 unknown) (unknown) (no (unknown) (unknown) Respiratory Rate (units (unknown) date) 13 unknown) (unknown) (no (unknown) (unknown) Respiratory Rate (units (unknown) date) 14 unknown) (unknown) (no (unknown) (unknown) Respiratory Rate (units (unknown) date) 15 13 unknown) (unknown) (no (unknown) (unknown) Respiratory Rate (units (unknown) date) 15 unknown) (unknown) (no (unknown) (unknown) Respiratory Rate (units (unknown) date) 16 unknown) (unknown) (no (unknown) (unknown) Respiratory Rate (units (unknown) date) 17 15 unknown) (unknown) (no (unknown) (unknown) Respiratory Rate (units (unknown) date) 18 19 unknown) (unknown) (no (unknown) (unknown) Respiratory Rate (units (unknown) date) 19 04/30/22 18:59 unknown) (unknown) (no (unknown) (unknown) Result diagrams: (units (unknown) date) unknown) (unknown) (no (unknown) (unknown) Review of Systems (units (unknown) date) unknown) (unknown) (no (unknown) (unknown) Abdulkadir Garcia (units (u nknown) date) unknown) (unknown) (no (unknown) (unknown) SARS-CoV-2 (PCR) (units (unknown) date) (Negative) unknown) (unknown) (no (unknown) (unknown) SARS-CoV-2 (PCR) (units (unknown) date) Negative unknown) (Negative) (unknown) (no (unknown) (unknown) SKIN: Warm, dry, (units (unknown) date) no petechiae, no unknown) rashes or lesions. (unknown) (no (unknown) (unknown) Signed By: (units (unk nown) date) unknown) (unknown) (no (unknown) (unknown) Signed (units (unkno wn) date) unknown) (unknown) (no (unknown) (unknown) Sinus rhythm rate (units (unknown) date) 80 6p are 146 QRS unknown) of 106 and QTC of 464. No acute ST (unknown) (no (unknown) (unknown) Smoking Status: (units (unknown) date) Current every day unknown) smoker (unknown) (no (unknown) (unknown) Social History (units (unknown) date) (Reviewed 04/30/22 unknown) @ 19:35 by Emma Stevens DO) (unknown) (no (unknown) (unknown) Sodium (137-145) (units (unknown) date) mmol/L unknown) (unknown) (no (unknown) (unknown) Sodium 138 (units (unk nown) date) (137-145) mmol/L unknown) (unknown) (no (unknown) (unknown) Source: patient, (units (unknown) date) EMS, RN notes unknown) reviewed and old records reviewed (unknown) (no (unknown) (unknown) Stated Complaint: (units (unknown) date) Chest pain unknown) (unknown) (no (unknown) (unknown) Stop: 04/30/22 (units (unknown) date) 19:40 unknown) (unknown) (no (unknown) (unknown) Substance Use (units ( unknown) date) Type: does not use unknown) (unknown) (no (unknown) (unknown) Surgical History (units (unknown) date) (Reviewed 04/30/22 unknown) @ 19:35 by Emma Stevens DO) (unknown) (no (unknown) (unknown) Surgical changes (units (unknown) date) and devices:? unknown) None.? (unknown) (no (unknown) (unknown) TECHNIQUE:? One (units (unknown) date) view of the chest unknown) was acquired.? (unknown) (no (unknown) (unknown) Telemetry Strips (units (unknown) date) unknown) (unknown) (no (unknown) (unknown) Temperature 98.3 (units (unknown) date) F unknown) (unknown) (no (unknown) (unknown) Temperature (units (un known) date) unknown) (unknown) (no (unknown) (unknown) This is a (units (unkn own) date) 66-year-old male unknown) who presents with recurrent chest pain similar to (unknown) (no (unknown) (unknown) This is a (units (unkn own) date) 66-year-old male unknown) with complaint of chest, low back pain that radiates (unknown) (no (unknown) (unknown) Time Seen by (units (u nknown) date) Provider: 04/30/22 unknown) 18:56 (unknown) (no (unknown) (unknown) Time: 20:03 (units (un known) date) unknown) (unknown) (no (unknown) (unknown) Time: 22:21 (units (un known) date) unknown) (unknown) (no (unknown) (unknown) Total Bilirubin (units (unknown) date) (0.2-1.3) mg/dL unknown) (unknown) (no (unknown) (unknown) Total Bilirubin (units (unknown) date) 1.1 (0.2-1.3) unknown) mg/dL (unknown) (no (unknown) (unknown) Total Creatine (units (unknown) date) Kinase (55-170) unknown) U/L (unknown) (no (unknown) (unknown) Total Creatine (units (unknown) date) Kinase 44 L unknown) (55-170) U/L (unknown) (no (unknown) (unknown) Total Protein (units ( unknown) date) (6.3-8.2) g/dL unknown) (unknown) (no (unknown) (unknown) Total Protein 6.7 (units (unknown) date) (6.3-8.2) g/dL unknown) (unknown) (no (unknown) (unknown) Trop I [Troponin (units (unknown) date) I] Stat unknown) (unknown) (no (unknown) (unknown) Troponin + CK (units ( unknown) date) Cardiac Panel Stat unknown) (unknown) (no (unknown) (unknown) Troponin I < (units (u nknown) date) 0.012 (0.01-0.034) unknown) ng/mL (unknown) (no (unknown) (unknown) Troponin I (units (unk nown) date) (0.01-0.034) ng/mL unknown) (unknown) (no (unknown) (unknown) Troponin I 0.013 (units (unknown) date) (0.01-0.034) ng/mL unknown) (unknown) (no (unknown) (unknown) UA Complete (units (un known) date) [Urinalysis and unknown) Microscopic] Stat (unknown) (no (unknown) (unknown) Ur Culture (units (unk nown) date) Indicated? Cult unknown) not indicated (unknown) (no (unknown) (unknown) Ur Culture (units (unk nown) date) Indicated? unknown) (unknown) (no (unknown) (unknown) Ur Leukocyte (units (u nknown) date) Esterase unknown) (NEGATIVE) (unknown) (no (unknown) (unknown) Ur Leukocyte (units (u nknown) date) Esterase Negative unknown) (NEGATIVE) (unknown) (no (unknown) (unknown) Ur Specific (units (un known) date) [place] <=1.005 unknown) (1.000-1.035) (unknown) (no (unknown) (unknown) Ur Specific (units (un known) date) [place] unknown) (1.000-1.035) (unknown) (no (unknown) (unknown) Urine Appearance (units (unknown) date) Clear unknown) (unknown) (no (unknown) (unknown) Urine Appearance (units (unknown) date) unknown) (unknown) (no (unknown) (unknown) Urine Bacteria (units (unknown) date) (None) unknown) (unknown) (no (unknown) (unknown) Urine Bacteria (units (unknown) date) None seen (None) unknown) (unknown) (no (unknown) (unknown) Urine Bilirubin (units (unknown) date) (NEGATIVE) unknown) (unknown) (no (unknown) (unknown) Urine Bilirubin (units (unknown) date) Negative unknown) (NEGATIVE) (unknown) (no (unknown) (unknown) Urine Color (units (un known) date) Yellow unknown) (unknown) (no (unknown) (unknown) Urine Color (units (un known) date) unknown) (unknown) (no (unknown) (unknown) Urine Glucose (units ( unknown) date) (UA) (Negative) unknown) g/dL (unknown) (no (unknown) (unknown) Urine Glucose (units ( unknown) date) (UA) 1+ H unknown) (Negative) g/dL (unknown) (no (unknown) (unknown) Urine Ketones (units ( unknown) date) (NEGATIVE) unknown) (unknown) (no (unknown) (unknown) Urine Ketones (units ( unknown) date) Negative unknown) (NEGATIVE) (unknown) (no (unknown) (unknown) Urine Nitrate (units ( unknown) date) (Negative) unknown) (unknown) (no (unknown) (unknown) Urine Nitrate (units ( unknown) date) Negative unknown) (Negative) (unknown) (no (unknown) (unknown) Urine Occult (units (u nknown) date) Blood (Negative) unknown) (unknown) (no (unknown) (unknown) Urine Occult (units (u nknown) date) Blood Negative unknown) (Negative) (unknown) (no (unknown) (unknown) Urine Protein (units ( unknown) date) (Negative) unknown) (unknown) (no (unknown) (unknown) Urine Protein (units ( unknown) date) Negative unknown) (Negative) (unknown) (no (unknown) (unknown) Urine RBC (units (unkn own) date) (0-5/HPF) unknown) (unknown) (no (unknown) (unknown) Urine RBC None (units (unknown) date) seen (0-5/HPF) unknown) (unknown) (no (unknown) (unknown) Urine (units (unkno wn) date) Urobilinogen (0.2) unknown) E.U./dL (unknown) (no (unknown) (unknown) Urine (units (unkno wn) date) Urobilinogen 0.2 unknown) (0.2) E.U./dL (unknown) (no (unknown) (unknown) Urine WBC (units (unkn own) date) (0-5/HPF) unknown) (unknown) (no (unknown) (unknown) Urine WBC None (units (unknown) date) seen (0-5/HPF) unknown) (unknown) (no (unknown) (unknown) Urine pH (units (unkno wn) date) (4.5-8.0) unknown) (unknown) (no (unknown) (unknown) Urine pH 5.5 (units (u nknown) date) (4.5-8.0) unknown) (unknown) (no (unknown) (unknown) Vital Signs - 8 (units (unknown) date) hr unknown) (unknown) (no (unknown) (unknown) Vital Signs (units (un known) date) unknown) (unknown) (no (unknown) (unknown) Vital signs: (units (u nknown) date) unknown) (unknown) (no (unknown) (unknown) WBC (4.5-11.0) (units (unknown) date) X103/uL unknown) (unknown) (no (unknown) (unknown) WBC 8.6 (units (unkno wn) date) (4.5-11.0) X103/uL unknown) (unknown) (no (unknown) (unknown) XR chest 1V Stat (units (unknown) date) unknown) (unknown) (no (unknown) (unknown) XRay Report (units (un known) date) unknown) (unknown) (no (unknown) (unknown) [Embedded Image (units (unknown) date) Not Available] unknown) (unknown) (no (unknown) (unknown) [normal sphincter (units (unknown) date) tone/decreased unknown) tone/no tone/deferred or refused]. Patient has (unknown) (no (unknown) (unknown) abnormality (units (un known) date) unknown) (unknown) (no (unknown) (unknown) admitted for (units (u nknown) date) atypical chest unknown) pain, low back pain and acute urinary retention and (unknown) (no (unknown) (unknown) alcohol intake: (units (unknown) date) former unknown) (unknown) (no (unknown) (unknown) and below (units (unkn own) date) unknown) (unknown) (no (unknown) (unknown) and negative (units (u nknown) date) range feels unknown) patient is appropriate to discharge from a cardiac (unknown) (no (unknown) (unknown) are 2/4 and lower (units (unknown) date) extremities. unknown) Dorsalis pedis and tibialis pulses are 2+ and (unknown) (no (unknown) (unknown) aspirin 81 mg (units ( unknown) date) Tablet,Delayed unknown) Release (Dr/Ec) (unknown) (no (unknown) (unknown) aspirin 81 mg (units ( unknown) date) tablet,delayed 81 unknown) mg PO DAILY #9 tabs 03/30/22 (unknown) (no (unknown) (unknown) atorvastatin 40 (units (unknown) date) mg tablet unknown) (Lipitor) 40 mg PO DAILY #90 tabs 03/30/22 (unknown) (no (unknown) (unknown) atorvastatin (units (u nknown) date) [Lipitor] 40 mg unknown) tablet (unknown) (no (unknown) (unknown) back in 1992. No (units (unknown) date) known drug unknown) allergies. He does use tobacco and smokes a (unknown) (no (unknown) (unknown) but a new urinary (units (unknown) date) retention with a L unknown) in his bladder he was discharged home on (unknown) (no (unknown) (unknown) capsule (units (unkno wn) date) unknown) (unknown) (no (unknown) (unknown) changed from (units (u nknown) date) - no ST unknown) elevation. (unknown) (no (unknown) (unknown) changes are seen. (units (unknown) date) ? Overlying soft unknown) tissues appear unremarkable.? (unknown) (no (unknown) (unknown) cough or (units (unkno wn) date) congestion. He unknown) denies any bladder or fecal incontinence. Patient (unknown) (no (unknown) (unknown) current findings (units (unknown) date) today, at this unknown) time he states nonsurgical does not require (unknown) (no (unknown) (unknown) decreased range (units (unknown) date) of motion. Patient unknown) has pain and discomfort particularly in the (unknown) (no (unknown) (unknown) degenerative (units (u nknown) date) unknown) (unknown) (no (unknown) (unknown) difficulty with (units (unknown) date) dorsiflexion on unknown) the left foot. He endorses difficulty with (unknown) (no (unknown) (unknown) does have low back (units (unknown) date) pain which unknown) radiates particularly down his left leg and states (unknown) (no (unknown) (unknown) down his legs. (units (unknown) date) Patient states the unknown) chest pain has been present for the last 4-6 (unknown) (no (unknown) (unknown) elevation. (units (unk nown) date) T-waves are unknown) inverted in lateral leads V3 through V 5 which appears (unknown) (no (unknown) (unknown) emergent (units (unkno wn) date) treatment. He unknown) would recommend oral steroids for pain. From spinal (unknown) (no (unknown) (unknown) established with (units (unknown) date) a primary care. unknown) (unknown) (no (unknown) (unknown) exam does show (units (unknown) date) radicular changes unknown) but is inconsistent throughout exam. 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 He states it is quite painful he states (unknown) (no (unknown) (unknown) he states it is (units (unknown) date) sort of across his unknown) chest. He denies radiation elsewhere but (unknown) (no (unknown) (unknown) his medications (units (unknown) date) regularly. He unknown) states this feels very similar to his visit in (unknown) (no (unknown) (unknown) hospital. (units (unkn own) date) unknown) (unknown) (no (unknown) (unknown) hours. He states (units (unknown) date) no diaphoresis, no unknown) shortness of breath, no nausea or vomiting (unknown) (no (unknown) (unknown) household (units (unkn own) date) members: unknown) significant other (unknown) (no (unknown) (unknown) identified.? (units (u nknown) date) unknown) (unknown) (no (unknown) (unknown) incomplete (units (unk nown) date) unknown) (unknown) (no (unknown) (unknown) infiltrates are (units (unknown) date) seen.? No unknown) pneumothorax or significant pleural effusions are (unknown) (no (unknown) (unknown) inspiratory result (units (unknown) date) is noted, causing unknown) a crowded appearance to the lung markings.? (unknown) (no (unknown) (unknown) intact (units (unkno wn) date) unknown) (unknown) (no (unknown) (unknown) left lower (units (unk nown) date) abdomen. Patient's unknown) gait is not tested initially. Rectal exam is (unknown) (no (unknown) (unknown) losartan 25 mg (units (unknown) date) tablet 25 mg PO unknown) DAILY #90 tabs 03/30/22 (unknown) (no (unknown) (unknown) losartan 25 mg (units (unknown) date) tablet unknown) (unknown) (no (unknown) (unknown) lower (units (unkno wn) date) extremities. unknown) Sensation is intact in the lower extremities. (unknown) (no (unknown) (unknown) metformin 500 mg (units (unknown) date) tablet 500 mg PO unknown) BID #180 tabs 03/30/22 (unknown) (no (unknown) (unknown) metformin 500 mg (units (unknown) date) tablet unknown) (unknown) (no (unknown) (unknown) metoprolol (units (unk nown) date) succinate 25 mg 25 unknown) mg PO DAILY #90 tabs 03/30/22 (unknown) (no (unknown) (unknown) metoprolol (units (unk nown) date) succinate 25 mg unknown) tablet extended release 24 hr (unknown) (no (unknown) (unknown) moist mucous (units (u nknown) date) membranes unknown) (unknown) (no (unknown) (unknown) movement of the (units (unknown) date) left leg but can unknown) adjust himself in the bed without issue. DTRs (unknown) (no (unknown) (unknown) naproxen sodium (units (unknown) date) 220 mg capsule 220 unknown) mg PO BID 03/28/22 03/28/22 (unknown) (no (unknown) (unknown) naproxen sodium (units (unknown) date) [Aleve] 220 mg unknown) Capsule (unknown) (no (unknown) (unknown) no other ischemic (units (unknown) date) changes and an EF unknown) of 40%. Unclear if patient has been taking (unknown) (no (unknown) (unknown) or large pleural (units (unknown) date) effusions are unknown) seen.? No focal infiltrates are seen.? An (unknown) (no (unknown) (unknown) oxycodone 10 mg (units (unknown) date) and that was unknown) helpful. States his only surgeries or for his low (unknown) (no (unknown) (unknown) oxycodone 5 mg (units (unknown) date) tablet 5 mg PO unknown) Q8HR PRN Pain. #20 tabs 03/30/22 (unknown) (no (unknown) (unknown) oxycodone 5 mg (units (unknown) date) tablet unknown) (unknown) (no (unknown) (unknown) pantoprazole 40 (units (unknown) date) mg PO BID ##0 unknown) 11/01/20 (unknown) (no (unknown) (unknown) pantoprazole (units (u nknown) date) tablet unknown) (unknown) (no (unknown) (unknown) perspective (units (un known) date) patient can be DC unknown) home and does not require being seen in the (unknown) (no (unknown) (unknown) pneumothorax (units (u nknown) date) unknown) (unknown) (no (unknown) (unknown) quarter to a 3rd (units (unknown) date) pack daily, unknown) occasional alcohol, no illicit. He has not (unknown) (no (unknown) (unknown) release (units (unkno wn) date) unknown) (unknown) (no (unknown) (unknown) seen. ? (units (unkno wn) date) unknown) (unknown) (no (unknown) (unknown) sometimes he has (units (unknown) date) weakness in that unknown) leg but not currently. He denies fevers, cold (unknown) (no (unknown) (unknown) standpoint. (units (un known) date) Review patient's unknown) ST changes today. His myocardial perfusion stress (unknown) (no (unknown) (unknown) states he had (units ( unknown) date) aspirin, nitro unknown) sublingual x3 and morphine EN route with EMS and (unknown) (no (unknown) (unknown) states that he is (units (unknown) date) not any pain unknown) medication for his back but used to be on (unknown) (no (unknown) (unknown) tablet,extended (units (unknown) date) release 24 hr unknown) (unknown) (no (unknown) (unknown) tamsulosin 0.4 mg (units (unknown) date) capsule (Flomax) unknown) 0.4 mg PO BEDTIME #90 caps 03/30/22 (unknown) (no (unknown) (unknown) tamsulosin (units (unk nown) date) [Flomax] 0.4 mg unknown) Capsule (unknown) (no (unknown) (unknown) that he was (units (un known) date) restarted on his unknown) medications unclear if he is taking them daily (unknown) (no (unknown) (unknown) that it changed (units (unknown) date) nothing about his unknown) chest pain or his back pain. States this is (unknown) (no (unknown) (unknown) took it 4 weeks (units (unknown) date) ago. unknown) (unknown) (no (unknown) (unknown) very similar to (units (unknown) date) when he was here unknown) in March and admitted at that time he was (unknown) (no (unknown) (unknown) with EF of 40-55% (units (unknown) date) and a lumbar MRI unknown) which showed no cord compression or stenosis Result panel 603 (unknown) (no (unknown) (unknown) (no value) (units (unk nown) date) unknown) (unknown) (no (unknown) (unknown) (Aleve) (units (unkno wn) date) unknown) (unknown) (no (unknown) (unknown) 0.4 mg PO BEDTIME (units (unknown) date) Qty: 90 0RF unknown) (unknown) (no (unknown) (unknown) 10/31/20 (units (unkno wn) date) unknown) (unknown) (no (unknown) (unknown) 11/01/20 (units (unkno wn) date) unknown) (unknown) (no (unknown) (unknown) 03/28/22 (units (unkno wn) date) unknown) (unknown) (no (unknown) (unknown) 03/29/22 (units (unkno wn) date) unknown) (unknown) (no (unknown) (unknown) 04/30/22 04/30/22 (units (unknown) date) 04/30/22 unknown) Range/Units (unknown) (no (unknown) (unknown) 04/30/22 19:01 (units (unknown) date) unknown) (unknown) (no (unknown) (unknown) 04/30/22 19:06 (units (unknown) date) unknown) (unknown) (no (unknown) (unknown) 04/30/22 19:10 (units (unknown) date) unknown) (unknown) (no (unknown) (unknown) 04/30/22 19:50 (units (unknown) date) unknown) (unknown) (no (unknown) (unknown) 04/30/22 21:00 (units (unknown) date) unknown) (unknown) (no (unknown) (unknown) 04/30/22 23:30 (units (unknown) date) unknown) (unknown) (no (unknown) (unknown) 04/30/22 23:38 (units (unknown) date) unknown) (unknown) (no (unknown) (unknown) 04/30/22 (units (unkno wn) date) Range/Units unknown) (unknown) (no (unknown) (unknown) 04/30/22 (units (unkno wn) date) unknown) (unknown) (no (unknown) (unknown) [address] [place] [address] (units (unknown) date) unknown) (unknown) (no (unknown) (unknown) 134 mg PO DAILY (units (unknown) date) unknown) (unknown) (no (unknown) (unknown) 18:59 04/30/22 (units (unknown) date) unknown) (unknown) (no (unknown) (unknown) 19:00 04/30/22 (units (unknown) date) unknown) (unknown) (no (unknown) (unknown) 19:00 (units (unkno wn) date) unknown) (unknown) (no (unknown) (unknown) 19:01 19:01 19:01 (units (unknown) date) unknown) (unknown) (no (unknown) (unknown) 19:01 19:06 19:50 (units (unknown) date) unknown) (unknown) (no (unknown) (unknown) 19:02 04/30/22 (units (unknown) date) unknown) (unknown) (no (unknown) (unknown) 19:15 04/30/22 (units (unknown) date) unknown) (unknown) (no (unknown) (unknown) 19:15 (units (unkno wn) date) unknown) (unknown) (no (unknown) (unknown) 19:30 04/30/22 (units (unknown) date) unknown) (unknown) (no (unknown) (unknown) 19:51 04/30/22 (units (unknown) date) unknown) (unknown) (no (unknown) (unknown) 19:51 (units (unkno wn) date) unknown) (unknown) (no (unknown) (unknown) 20:00 04/30/22 (units (unknown) date) unknown) (unknown) (no (unknown) (unknown) 20:00 (units (unkno wn) date) unknown) (unknown) (no (unknown) (unknown) 20:30 04/30/22 (units (unknown) date) unknown) (unknown) (no (unknown) (unknown) 21:00 04/30/22 (units (unknown) date) unknown) (unknown) (no (unknown) (unknown) 21:00 (units (unkno wn) date) unknown) (unknown) (no (unknown) (unknown) 21:30 04/30/22 (units (unknown) date) unknown) (unknown) (no (unknown) (unknown) 21:30 (units (unkno wn) date) unknown) (unknown) (no (unknown) (unknown) 220 mg PO BID (units ( unknown) date) unknown) (unknown) (no (unknown) (unknown) 22:00 04/30/22 (units (unknown) date) unknown) (unknown) (no (unknown) (unknown) 22:30 04/30/22 (units (unknown) date) unknown) (unknown) (no (unknown) (unknown) 22:30 (units (unkno wn) date) unknown) (unknown) (no (unknown) (unknown) 23:00 04/30/22 (units (unknown) date) unknown) (unknown) (no (unknown) (unknown) 23:00 (units (unkno wn) date) unknown) (unknown) (no (unknown) (unknown) 23:01.? [place] (units (unknown) date) unknown) (unknown) (no (unknown) (unknown) 23:30 04/30/22 (units (unknown) date) unknown) (unknown) (no (unknown) (unknown) 23:30 (units (unkno wn) date) unknown) (unknown) (no (unknown) (unknown) 25 mg PO DAILY (units (unknown) date) Qty: 90 0RF unknown) (unknown) (no (unknown) (unknown) 2847 (units (unkno wn) date) unknown) (unknown) (no (unknown) (unknown) 40 mg PO BID Qty: (units (unknown) date) 0 0RF unknown) (unknown) (no (unknown) (unknown) 40 mg PO DAILY (units (unknown) date) Qty: 90 0RF unknown) (unknown) (no (unknown) (unknown) 5 MG PO Q8HR As (units (unknown) date) Needed for Pain unknown) (unknown) (no (unknown) (unknown) 5 mg PO Q8HR PRN (units (unknown) date) (Reason: Pain.) unknown) Qty: 20 0RF (unknown) (no (unknown) (unknown) 500 mg PO BID (units ( unknown) date) Qty: 180 0RF unknown) (unknown) (no (unknown) (unknown) 81 mg PO DAILY (units (unknown) date) Qty: 9 0RF unknown) (unknown) (no (unknown) (unknown) ? (units (unkno wn) date) unknown) (unknown) (no (unknown) (unknown) ABDOMEN: Soft, (units (unknown) date) nontender. unknown) Normoactive bowel sounds all 4 quadrants. No (unknown) (no (unknown) (unknown) ALT (<50) IU/L (units (unknown) date) unknown) (unknown) (no (unknown) (unknown) ALT 42 (<50) IU/L (units (unknown) date) unknown) (unknown) (no (unknown) (unknown) AST (17-59) IU/L (units (unknown) date) unknown) (unknown) (no (unknown) (unknown) AST 49 (17-59) (units (unknown) date) IU/L unknown) (unknown) (no (unknown) (unknown) Abdomen (units (unkno wn) date) Ultrasound unknown) (Signed) (unknown) (no (unknown) (unknown) Abdomen/Pelvis CT (units (unknown) date) (Signed) unknown) (unknown) (no (unknown) (unknown) Accession Number: (units (unknown) date) [id number] ?? unknown) (unknown) (no (unknown) (unknown) Acct:[id number] (units (unknown) date) unknown) (unknown) (no (unknown) (unknown) Age/Sex: 66 / M (units (unknown) date) unknown) (unknown) (no (unknown) (unknown) Albumin (3.5-5.0) (units (unknown) date) g/dL unknown) (unknown) (no (unknown) (unknown) Albumin 3.9 (units (un known) date) (3.5-5.0) g/dL unknown) (unknown) (no (unknown) (unknown) Albumin/Globulin (units (unknown) date) Ratio (1.0-2.8) unknown) (unknown) (no (unknown) (unknown) Albumin/Globulin (units (unknown) date) Ratio 1.4 unknown) (1.0-2.8) (unknown) (no (unknown) (unknown) Alkaline (units (unkno wn) date) Phosphatase unknown) (38-126) U/L (unknown) (no (unknown) (unknown) Alkaline (units (unkno wn) date) Phosphatase 100 unknown) (38-126) U/L (unknown) (no (unknown) (unknown) Allergies (units (unkn own) date) unknown) (unknown) (no (unknown) (unknown) Allergy/AdvReac (units (unknown) date) Type Severity unknown) Reaction Status Date / Time (unknown) (no (unknown) (unknown) [place], [place] (units ( unknown) date) [id number] unknown) (unknown) (no (unknown) (unknown) Approved by: (units (u nknown) date) Mikael Coyle, unknownAna Fuentes on 04/30/2022 at 19:20?? (unknown) (no (unknown) (unknown) Attestation: I (units (unknown) date) personally unknown) reviewed and interpreted this ECG as follows: (unknown) (no (unknown) (unknown) BACK: No (units (unkno wn) date) cervical, thoracic unknown) or lumbar vertebral point tenderness. Patient has (unknown) (no (unknown) (unknown) BNP [NT-proBNP (units (unknown) date) (BNP-Adult 18+)] unknown) Stat (unknown) (no (unknown) (unknown) BUN (9-20) mg/dL (units (unknown) date) unknown) (unknown) (no (unknown) (unknown) BUN 7 L (9-20) (units (unknown) date) mg/dL unknown) (unknown) (no (unknown) (unknown) BUN/Creatinine (units (unknown) date) Ratio (6-22) unknown) (unknown) (no (unknown) (unknown) BUN/Creatinine (units (unknown) date) Ratio 10.6 (6-22) unknown) (unknown) (no (unknown) (unknown) Baso # (Auto) (units ( unknown) date) (0-100) /uL unknown) (unknown) (no (unknown) (unknown) Baso # (Auto) 200 (units (unknown) date) H (0-100) /uL unknown) (unknown) (no (unknown) (unknown) Baso % (Auto) (units ( unknown) date) (0-2) % unknown) (unknown) (no (unknown) (unknown) Baso % (Auto) 2.0 (units (unknown) date) (0-2) % unknown) (unknown) (no (unknown) (unknown) Blood Pressure (units (unknown) date) 104/69 unknown) (unknown) (no (unknown) (unknown) Blood Pressure (units (unknown) date) 105/73 unknown) (unknown) (no (unknown) (unknown) Blood Pressure (units (unknown) date) 108/65 unknown) (unknown) (no (unknown) (unknown) Blood Pressure (units (unknown) date) 109/60 97/61 unknown) (unknown) (no (unknown) (unknown) Blood Pressure (units (unknown) date) 109/60 unknown) (unknown) (no (unknown) (unknown) Blood Pressure (units (unknown) date) 109/67 107/64 unknown) (unknown) (no (unknown) (unknown) Blood Pressure (units (unknown) date) 110/62 112/66 unknown) (unknown) (no (unknown) (unknown) Blood Pressure (units (unknown) date) 137/72 unknown) (unknown) (no (unknown) (unknown) Blood Pressure (units (unknown) date) 98/68 98/68 unknown) (unknown) (no (unknown) (unknown) Bones and chest (units (unknown) date) wall:? No unknown) suspicious bony lesions.? Age-appropriate bony (unknown) (no (unknown) (unknown) CARDIOVASCULAR: (units (unknown) date) Regular rate and unknown) rhythm without murmurs, rubs or gallops. (unknown) (no (unknown) (unknown) CK-MB (CK-2) Rel (units (unknown) date) Index TNP unknown) (unknown) (no (unknown) (unknown) CK-MB (CK-2) Rel (units (unknown) date) Index unknown) (unknown) (no (unknown) (unknown) CK-MB (CK-2) TNP (units (unknown) date) unknown) (unknown) (no (unknown) (unknown) CK-MB (CK-2) (units (u nknown) date) unknown) (unknown) (no (unknown) (unknown) COMPARISON:? (units (u nknown) date) [facility], unknown) CT, CT ANGIO CHEST PE PROTOCOL, 03/28/2022, (unknown) (no (unknown) (unknown) Calcium (units (unkno wn) date) (8.4-10.2) mg/dL unknown) (unknown) (no (unknown) (unknown) Calcium 8.1 L (units ( unknown) date) (8.4-10.2) mg/dL unknown) (unknown) (no (unknown) (unknown) Call,Michele (units (unk nown) date) unknown) (unknown) (no (unknown) (unknown) Carbon Dioxide (units (unknown) date) (22-32) mmol/L unknown) (unknown) (no (unknown) (unknown) Carbon Dioxide 17 (units (unknown) date) L (22-32) mmol/L unknown) (unknown) (no (unknown) (unknown) Chest CTA (units (unkn own) date) (Signed) unknown) (unknown) (no (unknown) (unknown) Chest X-Ray (units (un known) date) (Signed) unknown) (unknown) (no (unknown) (unknown) Chest x-ray: (units (u nknown) date) unknown) (unknown) (no (unknown) (unknown) Chief Complaint: (units (unknown) date) Chest Pain unknown) (unknown) (no (unknown) (unknown) Chloride (98-107) (units (unknown) date) mmol/L unknown) (unknown) (no (unknown) (unknown) Chloride 104 (units (u nknown) date) (98-107) mmol/L unknown) (unknown) (no (unknown) (unknown) Close (units (unkno wn) date) unknown) (unknown) (no (unknown) (unknown) Complete Blood (units (unknown) date) Count AUTO DIFF unknown) Stat (unknown) (no (unknown) (unknown) Comprehensive (units ( unknown) date) Metabolic Panel unknown) Stat (unknown) (no (unknown) (unknown) Consultation #1: (units (unknown) date) unknown) (unknown) (no (unknown) (unknown) Consultation #2: (units (unknown) date) unknown) (unknown) (no (unknown) (unknown) Consultations (units ( unknown) date) unknown) (unknown) (no (unknown) (unknown) Coronary artery (units (unknown) date) disease unknown) (unknown) (no (unknown) (unknown) Course (units (unkno wn) date) unknown) (unknown) (no (unknown) (unknown) Covid-19 + FLU (units (unknown) date) A/B + RSV - PCR unknown) Stat (unknown) (no (unknown) (unknown) Creatinine (units (unk nown) date) (0.66-1.25) mg/dL unknown) (unknown) (no (unknown) (unknown) Creatinine 0.66 (units (unknown) date) (0.66-1.25) mg/dL unknown) (unknown) (no (unknown) (unknown) : 1955 (units (unknown) date) Acct:[id number] unknown) (unknown) (no (unknown) (unknown) : 1955 (units (unknown) date) unknown) (unknown) (no (unknown) (unknown) Date of Service: (units (unknown) date) 04/30/22 unknown) (unknown) (no (unknown) (unknown) Departure (units (unkn own) date) unknown) (unknown) (no (unknown) (unknown) Diabetes type 2, (units (unknown) date) uncontrolled unknown) (unknown) (no (unknown) (unknown) Dictated by: (units (u nknown) date) Mikael Coyle, unknownAna Fuentes on 04/30/2022 at 19:20 ? ? (unknown) (no (unknown) (unknown) Discharge Plan (units (unknown) date) unknown) (unknown) (no (unknown) (unknown) Discontinued (units (u nknown) date) Medications unknown) (unknown) (no (unknown) (unknown) Documented By: (units (unknown) date) JESÚS unknown) (unknown) (no (unknown) (unknown) Chaitanya Hodge (units (u nknown) date) unknown) (unknown) (no (unknown) (unknown) Dr. Caicedo, (units (u nknown) date) cardiology unknown) recommends repeat 4 hour troponin from initial if still (unknown) (no (unknown) (unknown) Dr. John, (units (unkno wn) date) orthopedic unknown) surgery. Reviewed patient's MRI from March 29, 2022 his (unknown) (no (unknown) (unknown) ECG Data (units (unkno wn) date) unknown) (unknown) (no (unknown) (unknown) ED Orders (units (unkn own) date) unknown) (unknown) (no (unknown) (unknown) EKG-12 Lead Stat (units (unknown) date) unknown) (unknown) (no (unknown) (unknown) ER Physician: (units ( unknown) date) Emma Stevens DJimmy unknown) (unknown) (no (unknown) (unknown) ETOH [Ethanol (units ( unknown) date) (ETOH)] Stat unknown) (unknown) (no (unknown) (unknown) EXTREMITIES: (units (u nknown) date) Normal range of unknown) motion, no clubbing or edema. Neurovascularly (unknown) (no (unknown) (unknown) Echocardiogram (units (unknown) date) Ultrasound unknown) (Signed) (unknown) (no (unknown) (unknown) Elevated blood (units (unknown) date) alcohol level unknown) (unknown) (no (unknown) (unknown) Emergency Report (units (unknown) date) unknown) (unknown) (no (unknown) (unknown) Eos # (Auto) (units (u nknown) date) (0-450) /uL unknown) (unknown) (no (unknown) (unknown) Eos # (Auto) 300 (units (unknown) date) (0-450) /uL unknown) (unknown) (no (unknown) (unknown) Eos % (Auto) (units (u nknown) date) (2-4) % unknown) (unknown) (no (unknown) (unknown) Eos % (Auto) 3.5 (units (unknown) date) (2-4) % unknown) (unknown) (no (unknown) (unknown) Estimated GFR > (units (unknown) date) 60 (>60) mL/min unknown) (unknown) (no (unknown) (unknown) Estimated GFR (units ( unknown) date) (>60) mL/min unknown) (unknown) (no (unknown) (unknown) Ethyl Alcohol ( - (units (unknown) date) 10) mg/dL unknown) (unknown) (no (unknown) (unknown) Ethyl Alcohol 133 (units (unknown) date) H ( - 10) mg/dL unknown) (unknown) (no (unknown) (unknown) Exam Narrative: (units (unknown) date) unknown) (unknown) (no (unknown) (unknown) Exam (units (unkno wn) date) unknown) (unknown) (no (unknown) (unknown) FINDINGS:? (units (unk nown) date) unknown) (unknown) (no (unknown) (unknown) Family History (units (unknown) date) (Reviewed 04/30/22 unknown) @ 19:35 by Emma Stevens DO) (unknown) (no (unknown) (unknown) Father (units (unknown) date) Lung cancer unknown) (unknown) (no (unknown) (unknown) Flomax and on his (units (unknown) date) diabetic unknown) medications and heart medications. Patient does note (unknown) (no (unknown) (unknown) GENERAL: Alert (units (unknown) date) and oriented x unknown) three, male in mild distress (unknown) (no (unknown) (unknown) : No CVA (units (unk nown) date) tenderness unknown) (unknown) (no (unknown) (unknown) General (units (unkno wn) date) unknown) (unknown) (no (unknown) (unknown) Globulin (units (unkno wn) date) (1.7-4.1) g/dL unknown) (unknown) (no (unknown) (unknown) Globulin 2.8 (units (u nknown) date) (1.7-4.1) g/dL unknown) (unknown) (no (unknown) (unknown) Glucose (80-110) (units (unknown) date) mg/dL unknown) (unknown) (no (unknown) (unknown) Glucose 206 H (units ( unknown) date) (80-110) mg/dL unknown) (unknown) (no (unknown) (unknown) H/O heart artery (units (unknown) date) stent unknown) (unknown) (no (unknown) (unknown) HEENT: Head (units (un known) date) normocephalic, unknown) atraumatic, EOMI, pupils reactive, face symmetric, (unknown) (no (unknown) (unknown) HPI - Chest Pain (units (unknown) date) unknown) (unknown) (no (unknown) (unknown) HPI narrative: (units (unknown) date) unknown) (unknown) (no (unknown) (unknown) Hct (41-53) % (units ( unknown) date) unknown) (unknown) (no (unknown) (unknown) Hct 44.2 (41-53) (units (unknown) date) % unknown) (unknown) (no (unknown) (unknown) Hgb (13.5-17.5) (units (unknown) date) g/dL unknown) (unknown) (no (unknown) (unknown) Hgb 15.4 (units (unkno wn) date) (13.5-17.5) g/dL unknown) (unknown) (no (unknown) (unknown) History of (units (unk nown) date) Present Illness unknown) (unknown) (no (unknown) (unknown) Home Medications (units (unknown) date) unknown) (unknown) (no (unknown) (unknown) Hospital, CR, XR (units (unknown) date) CHEST 1V, unknown) 03/28/2022, 18:51. (unknown) (no (unknown) (unknown) IMPRESSION:? (units (u nknown) date) unknown) (unknown) (no (unknown) (unknown) INDICATIONS:? (units ( unknown) date) chest pain unknown) (unknown) (no (unknown) (unknown) Imaging Data (units (u nknown) date) unknown) (unknown) (no (unknown) (unknown) Influenza A (units (un known) date) (RT-PCR) unknown) (NEGATIVE) (unknown) (no (unknown) (unknown) Influenza A (units (un known) date) (RT-PCR) Flu a unknown) negative (NEGATIVE) (unknown) (no (unknown) (unknown) Influenza B (units (un known) date) (RT-PCR) unknown) (NEGATIVE) (unknown) (no (unknown) (unknown) Influenza B (units (un known) date) (RT-PCR) Flu b unknown) negative (NEGATIVE) (unknown) (no (unknown) (unknown) Initial Vital (units ( unknown) date) Signs unknown) (unknown) (no (unknown) (unknown) Initial Vital (units ( unknown) date) Signs: unknown) (unknown) (no (unknown) (unknown) Interpretation: (units (unknown) date) unknown) (unknown) (no (unknown) (unknown) [facility] (units (unknown) date) [address] unknown) [place] [address] (unknown) (no (unknown) (unknown) [facility] (units (unknown) date) unknown) (unknown) (no (unknown) (unknown) Mikael Coyle (units ( unknown) date) unknown) (unknown) (no (unknown) (unknown) Lab Data (units (unkno wn) date) unknown) (unknown) (no (unknown) (unknown) Lab Results (units (un known) date) unknown) (unknown) (no (unknown) (unknown) Label Comments: (units (unknown) date) unknown) (unknown) (no (unknown) (unknown) Labs: (units (unkno wn) date) unknown) (unknown) (no (unknown) (unknown) Last Admin: (units (un known) date) 04/30/22 20:00 unknown) Dose: 10 mg (unknown) (no (unknown) (unknown) Launch?Image (units (u nknown) date) unknown) (unknown) (no (unknown) (unknown) Limitations: no (units (unknown) date) limitations unknown) (unknown) (no (unknown) (unknown) Limited portable (units (unknown) date) chest examination, unknown) without a significant cardiopulmonary (unknown) (no (unknown) (unknown) Lipase (23-300) (units (unknown) date) U/L unknown) (unknown) (no (unknown) (unknown) Lipase 381 H (units (u nknown) date) (23-300) U/L unknown) (unknown) (no (unknown) (unknown) Lipase Stat (units (un known) date) unknown) (unknown) (no (unknown) (unknown) Loc: ED (units (unkno wn) date) unknown) (unknown) (no (unknown) (unknown) Lumbar Spine MRI (units (unknown) date) (Cancelled) unknown) (unknown) (no (unknown) (unknown) Lumbar Spine MRI (units (unknown) date) (Signed) unknown) (unknown) (no (unknown) (unknown) Lungs and (units (unkn own) date) pleura:? On this unknown) semiupright portable chest examination, no large (unknown) (no (unknown) (unknown) Lymph # (Auto) (units (unknown) date) (7449-2952) /uL unknown) (unknown) (no (unknown) (unknown) Lymph # (Auto) (units (unknown) date) 2900 (8228-8890) unknown) /uL (unknown) (no (unknown) (unknown) Lymph % (Auto) (units (unknown) date) (25-40) % unknown) (unknown) (no (unknown) (unknown) Lymph % (Auto) (units (unknown) date) 33.9 (25-40) % unknown) (unknown) (no (unknown) (unknown) MCH (26-34) PG (units (unknown) date) unknown) (unknown) (no (unknown) (unknown) MCH 30.3 (26-34) (units (unknown) date) PG unknown) (unknown) (no (unknown) (unknown) MCHC (30-36) % (units (unknown) date) unknown) (unknown) (no (unknown) (unknown) MCHC 34.9 (30-36) (units (unknown) date) % unknown) (unknown) (no (unknown) (unknown) MCV (80-100) fL (units (unknown) date) unknown) (unknown) (no (unknown) (unknown) MCV 86.9 (80-100) (units (unknown) date) fL unknown) (unknown) (no (unknown) (unknown) MDM - Chest Pain (units (unknown) date) unknown) (unknown) (no (unknown) (unknown) MDM Narrative (units ( unknown) date) unknown) (unknown) (no (unknown) (unknown) MR#: [id number] (units (unknown) date) unknown) (unknown) (no (unknown) (unknown) MRI at that time (units (unknown) date) which showed disc unknown) bulge but no stenosis or emergent changes. (unknown) (no (unknown) (unknown) Magnesium (units (unkn own) date) (1.6-2.3) mg/dL unknown) (unknown) (no (unknown) (unknown) Magnesium 1.6 (units ( unknown) date) (1.6-2.3) mg/dL unknown) (unknown) (no (unknown) (unknown) Magnesium Stat (units (unknown) date) unknown) (unknown) (no (unknown) (unknown) Mediastinum:? (units ( unknown) date) Mediastinal unknown) contours appear normal.? Heart size is normal.? (unknown) (no (unknown) (unknown) Medical History (units (unknown) date) (Reviewed 04/30/22 unknown) @ 19:35 by Emma Stevens DO) (unknown) (no (unknown) (unknown) Medical decision (units (unknown) date) making narrative: unknown) (unknown) (no (unknown) (unknown) Medication (units (unk nown) date) Instructions unknown) Recorded Confirmed (unknown) (no (unknown) (unknown) Medication (units (unk nown) date) Instructions unknown) Recorded (unknown) (no (unknown) (unknown) Radha Dunn (units (unknown) date) unknown) (unknown) (no (unknown) (unknown) Miscellaneous,Doc (units (unknown) date) MD shaggy [Primary unknown) Care Provider] (unknown) (no (unknown) (unknown) Mode of arrival: (units (unknown) date) EMS unknown) (unknown) (no (unknown) (unknown) [place] # (Auto) (units ( unknown) date) (0-900) /uL unknown) (unknown) (no (unknown) (unknown) [place] # (Auto) 800 (units (unknown) date) (0-900) /uL unknown) (unknown) (no (unknown) (unknown) [place] % (Auto) (units ( unknown) date) (3-14) % unknown) (unknown) (no (unknown) (unknown) [place] % (Auto) 8.9 (units (unknown) date) (3-14) % unknown) (unknown) (no (unknown) (unknown) [facility] (units (unknown) date) history unknown unknown) (unknown) (no (unknown) (unknown) Myocardial (units (unk nown) date) Perfusion Scan Nuc unknown) Med (Signed) (unknown) (no (unknown) (unknown) NECK: Supple, (units ( unknown) date) full range of unknown) motion (unknown) (no (unknown) (unknown) NEUROLOGICAL: (units ( unknown) date) Cranial nerves II unknown) through XII grossly intact. Moving all (unknown) (no (unknown) (unknown) NT-Pro-B (units (unkno wn) date) Natriuret Pep unknown) (<125) pg/mL (unknown) (no (unknown) (unknown) NT-Pro-B (units (unkno wn) date) Natriuret Pep 246 unknown) H (<125) pg/mL (unknown) (no (unknown) (unknown) Narrative (units (unkn own) date) unknown) (unknown) (no (unknown) (unknown) Neut # (Auto) (units ( unknown) date) (7400-1679) /uL unknown) (unknown) (no (unknown) (unknown) Neut # (Auto) (units ( unknown) date) 4500 (0586-5933) unknown) /uL (unknown) (no (unknown) (unknown) Neut % (Auto) (units ( unknown) date) (50-75) % unknown) (unknown) (no (unknown) (unknown) Neut % (Auto) (units ( unknown) date) 51.7 (50-75) % unknown) (unknown) (no (unknown) (unknown) No Action (units (unkn own) date) unknown) (unknown) (no (unknown) (unknown) No Known Drug (units ( unknown) date) Allergies Allergy unknown) Verified 10/31/20 23:10 (unknown) (no (unknown) (unknown) No focal (units (unkno wn) date) unknown) (unknown) (no (unknown) (unknown) March as well (units (unknown) date) as low back pain unknown) and radicular symptoms. Patient had an lumbar (unknown) (no (unknown) (unknown) March. EKG does (units (unknown) date) show new ST unknown) depression, initial troponin is negative, patient (unknown) (no (unknown) (unknown) Ordered: (units (unkno wn) date) unknown) (unknown) (no (unknown) (unknown) Ordering (units (unkno wn) date) Provider: unknown) Emma Stevens D.O. (unknown) (no (unknown) (unknown) Orders (units (unkno wn) date) unknown) (unknown) (no (unknown) (unknown) Oxycodone HCl (units ( unknown) date) (Oxycodone Ir 5 Mg unknown) Tablet) 10 mg PO NOW ONE (unknown) (no (unknown) (unknown) Oxygen Delivery (units (unknown) date) Method Room Air unknown) (unknown) (no (unknown) (unknown) Oxygen Delivery (units (unknown) date) Method unknown) (unknown) (no (unknown) (unknown) PROCEDURE:? XR (units (unknown) date) CHEST 1V unknown) (unknown) (no (unknown) (unknown) Patient History (units (unknown) date) unknown) (unknown) (no (unknown) (unknown) Patient's did have (units (unknown) date) stress testing at unknown) that time which had a fixed wall defect but (unknown) (no (unknown) (unknown) Patient: (units (unkno wn) date) Frank Chan MR#: unknown) [id number] (unknown) (no (unknown) (unknown) Patient: (units (unkno wn) date) Frank Chan unknown) (unknown) (no (unknown) (unknown) Donavon Fonseca (units (un known) date) unknown) (unknown) (no (unknown) (unknown) Plt Count (units (unkn own) date) (150-400) X103/uL unknown) (unknown) (no (unknown) (unknown) Plt Count 159 (units ( unknown) date) (150-400) X103/uL unknown) (unknown) (no (unknown) (unknown) Potassium (units (unkn own) date) (3.4-5.1) mmol/L unknown) (unknown) (no (unknown) (unknown) Potassium 4.2 (units ( unknown) date) (3.4-5.1) mmol/L unknown) (unknown) (no (unknown) (unknown) Prescriptions: (units (unknown) date) unknown) (unknown) (no (unknown) (unknown) Previous Rx's (units ( unknown) date) unknown) (unknown) (no (unknown) (unknown) Procedure: XR (units ( unknown) date) chest 1V unknown) (unknown) (no (unknown) (unknown) Pulse Oximetry 94 (units (unknown) date) 93 unknown) (unknown) (no (unknown) (unknown) Pulse Oximetry 94 (units (unknown) date) 95 unknown) (unknown) (no (unknown) (unknown) Pulse Oximetry 94 (units (unknown) date) unknown) (unknown) (no (unknown) (unknown) Pulse Oximetry 95 (units (unknown) date) 04/30/22 18:59 unknown) (unknown) (no (unknown) (unknown) Pulse Oximetry 95 (units (unknown) date) 94 unknown) (unknown) (no (unknown) (unknown) Pulse Oximetry 95 (units (unknown) date) 97 unknown) (unknown) (no (unknown) (unknown) Pulse Oximetry 97 (units (unknown) date) 95 unknown) (unknown) (no (unknown) (unknown) Pulse Rate 79 81 (units (unknown) date) unknown) (unknown) (no (unknown) (unknown) Pulse Rate 81 (units ( unknown) date) unknown) (unknown) (no (unknown) (unknown) Pulse Rate 82 79 (units (unknown) date) unknown) (unknown) (no (unknown) (unknown) Pulse Rate 84 (units ( unknown) date) unknown) (unknown) (no (unknown) (unknown) Pulse Rate 91 H (units (unknown) date) 04/30/22 18:59 unknown) (unknown) (no (unknown) (unknown) Pulse Rate 92 H (units (unknown) date) 91 H unknown) (unknown) (no (unknown) (unknown) Pulse Rate 93 H (units (unknown) date) 86 unknown) (unknown) (no (unknown) (unknown) RBC (4.5-5.9) (units ( unknown) date) X106/uL unknown) (unknown) (no (unknown) (unknown) RBC 5.09 (units (unkno wn) date) (4.5-5.9) X106/uL unknown) (unknown) (no (unknown) (unknown) RDW (11.6-14.8) % (units (unknown) date) unknown) (unknown) (no (unknown) (unknown) RDW 13.4 (units (unkno wn) date) (11.6-14.8) % unknown) (unknown) (no (unknown) (unknown) RESPIRATORY: (units (u nknown) date) Breath sounds unknown) equal bilaterally, no wheezes rales or rhonchi. (unknown) (no (unknown) (unknown) ROS Unobtainable: (units (unknown) date) All systems unknown) reviewed + are unremarkable except as noted in HPI (unknown) (no (unknown) (unknown) RSV (PCR) (units (unkn own) date) (Negative) unknown) (unknown) (no (unknown) (unknown) RSV (PCR) (units (unkn own) date) Negative unknown) (Negative) (unknown) (no (unknown) (unknown) Radiologist's (units ( unknown) date) Impression: unknown) (unknown) (no (unknown) (unknown) Referrals: (units (unk nown) date) unknown) (unknown) (no (unknown) (unknown) Related Data (units (u nknown) date) unknown) (unknown) (no (unknown) (unknown) Respiratory Rate (units (unknown) date) 12 13 unknown) (unknown) (no (unknown) (unknown) Respiratory Rate (units (unknown) date) 13 15 unknown) (unknown) (no (unknown) (unknown) Respiratory Rate (units (unknown) date) 13 unknown) (unknown) (no (unknown) (unknown) Respiratory Rate (units (unknown) date) 14 unknown) (unknown) (no (unknown) (unknown) Respiratory Rate (units (unknown) date) 15 13 unknown) (unknown) (no (unknown) (unknown) Respiratory Rate (units (unknown) date) 15 unknown) (unknown) (no (unknown) (unknown) Respiratory Rate (units (unknown) date) 16 unknown) (unknown) (no (unknown) (unknown) Respiratory Rate (units (unknown) date) 17 15 unknown) (unknown) (no (unknown) (unknown) Respiratory Rate (units (unknown) date) 18 19 unknown) (unknown) (no (unknown) (unknown) Respiratory Rate (units (unknown) date) 19 04/30/22 18:59 unknown) (unknown) (no (unknown) (unknown) Result diagrams: (units (unknown) date) unknown) (unknown) (no (unknown) (unknown) Review of Systems (units (unknown) date) unknown) (unknown) (no (unknown) (unknown) Abdulkadir Garcia (units (u nknown) date) unknown) (unknown) (no (unknown) (unknown) SARS-CoV-2 (PCR) (units (unknown) date) (Negative) unknown) (unknown) (no (unknown) (unknown) SARS-CoV-2 (PCR) (units (unknown) date) Negative unknown) (Negative) (unknown) (no (unknown) (unknown) SKIN: Warm, dry, (units (unknown) date) no petechiae, no unknown) rashes or lesions. (unknown) (no (unknown) (unknown) Signed By: (units (unk nown) date) unknown) (unknown) (no (unknown) (unknown) Signed (units (unkno wn) date) unknown) (unknown) (no (unknown) (unknown) Sinus rhythm rate (units (unknown) date) 80 6p are 146 QRS unknown) of 106 and QTC of 464. No acute ST (unknown) (no (unknown) (unknown) Smoking Status: (units (unknown) date) Current every day unknown) smoker (unknown) (no (unknown) (unknown) Social History (units (unknown) date) (Reviewed 04/30/22 unknown) @ 19:35 by Emma Stevens DO) (unknown) (no (unknown) (unknown) Sodium (137-145) (units (unknown) date) mmol/L unknown) (unknown) (no (unknown) (unknown) Sodium 138 (units (unk nown) date) (137-145) mmol/L unknown) (unknown) (no (unknown) (unknown) Source: patient, (units (unknown) date) EMS, RN notes unknown) reviewed and old records reviewed (unknown) (no (unknown) (unknown) Stated Complaint: (units (unknown) date) Chest pain unknown) (unknown) (no (unknown) (unknown) Stop: 04/30/22 (units (unknown) date) 19:40 unknown) (unknown) (no (unknown) (unknown) Substance Use (units ( unknown) date) Type: does not use unknown) (unknown) (no (unknown) (unknown) Surgical History (units (unknown) date) (Reviewed 04/30/22 unknown) @ 19:35 by Emma Stevens DO) (unknown) (no (unknown) (unknown) Surgical changes (units (unknown) date) and devices:? unknown) None.? (unknown) (no (unknown) (unknown) TECHNIQUE:? One (units (unknown) date) view of the chest unknown) was acquired.? (unknown) (no (unknown) (unknown) Telemetry Strips (units (unknown) date) unknown) (unknown) (no (unknown) (unknown) Temperature 98.3 (units (unknown) date) F unknown) (unknown) (no (unknown) (unknown) Temperature (units (un known) date) unknown) (unknown) (no (unknown) (unknown) This is a (units (unkn own) date) 66-year-old male unknown) who presents with recurrent chest pain similar to (unknown) (no (unknown) (unknown) This is a (units (unkn own) date) 66-year-old male unknown) with complaint of chest, low back pain that radiates (unknown) (no (unknown) (unknown) Time Seen by (units (u nknown) date) Provider: 04/30/22 unknown) 18:56 (unknown) (no (unknown) (unknown) Time: 20:03 (units (un known) date) unknown) (unknown) (no (unknown) (unknown) Time: 22:21 (units (un known) date) unknown) (unknown) (no (unknown) (unknown) Total Bilirubin (units (unknown) date) (0.2-1.3) mg/dL unknown) (unknown) (no (unknown) (unknown) Total Bilirubin (units (unknown) date) 1.1 (0.2-1.3) unknown) mg/dL (unknown) (no (unknown) (unknown) Total Creatine (units (unknown) date) Kinase (55-170) unknown) U/L (unknown) (no (unknown) (unknown) Total Creatine (units (unknown) date) Kinase 44 L unknown) (55-170) U/L (unknown) (no (unknown) (unknown) Total Protein (units ( unknown) date) (6.3-8.2) g/dL unknown) (unknown) (no (unknown) (unknown) Total Protein 6.7 (units (unknown) date) (6.3-8.2) g/dL unknown) (unknown) (no (unknown) (unknown) Trop I [Troponin (units (unknown) date) I] Stat unknown) (unknown) (no (unknown) (unknown) Troponin + CK (units ( unknown) date) Cardiac Panel Stat unknown) (unknown) (no (unknown) (unknown) Troponin I < (units (u nknown) date) 0.012 (0.01-0.034) unknown) ng/mL (unknown) (no (unknown) (unknown) Troponin I (units (unk nown) date) (0.01-0.034) ng/mL unknown) (unknown) (no (unknown) (unknown) Troponin I 0.013 (units (unknown) date) (0.01-0.034) ng/mL unknown) (unknown) (no (unknown) (unknown) UA Complete (units (un known) date) [Urinalysis and unknown) Microscopic] Stat (unknown) (no (unknown) (unknown) Ur Culture (units (unk nown) date) Indicated? Cult unknown) not indicated (unknown) (no (unknown) (unknown) Ur Culture (units (unk nown) date) Indicated? unknown) (unknown) (no (unknown) (unknown) Ur Leukocyte (units (u nknown) date) Esterase unknown) (NEGATIVE) (unknown) (no (unknown) (unknown) Ur Leukocyte (units (u nknown) date) Esterase Negative unknown) (NEGATIVE) (unknown) (no (unknown) (unknown) Ur Specific (units (un known) date) [place] <=1.005 unknown) (1.000-1.035) (unknown) (no (unknown) (unknown) Ur Specific (units (un known) date) [place] unknown) (1.000-1.035) (unknown) (no (unknown) (unknown) Urine Appearance (units (unknown) date) Clear unknown) (unknown) (no (unknown) (unknown) Urine Appearance (units (unknown) date) unknown) (unknown) (no (unknown) (unknown) Urine Bacteria (units (unknown) date) (None) unknown) (unknown) (no (unknown) (unknown) Urine Bacteria (units (unknown) date) None seen (None) unknown) (unknown) (no (unknown) (unknown) Urine Bilirubin (units (unknown) date) (NEGATIVE) unknown) (unknown) (no (unknown) (unknown) Urine Bilirubin (units (unknown) date) Negative unknown) (NEGATIVE) (unknown) (no (unknown) (unknown) Urine Color (units (un known) date) Yellow unknown) (unknown) (no (unknown) (unknown) Urine Color (units (un known) date) unknown) (unknown) (no (unknown) (unknown) Urine Glucose (units ( unknown) date) (UA) (Negative) unknown) g/dL (unknown) (no (unknown) (unknown) Urine Glucose (units ( unknown) date) (UA) 1+ H unknown) (Negative) g/dL (unknown) (no (unknown) (unknown) Urine Ketones (units ( unknown) date) (NEGATIVE) unknown) (unknown) (no (unknown) (unknown) Urine Ketones (units ( unknown) date) Negative unknown) (NEGATIVE) (unknown) (no (unknown) (unknown) Urine Nitrate (units ( unknown) date) (Negative) unknown) (unknown) (no (unknown) (unknown) Urine Nitrate (units ( unknown) date) Negative unknown) (Negative) (unknown) (no (unknown) (unknown) Urine Occult (units (u nknown) date) Blood (Negative) unknown) (unknown) (no (unknown) (unknown) Urine Occult (units (u nknown) date) Blood Negative unknown) (Negative) (unknown) (no (unknown) (unknown) Urine Protein (units ( unknown) date) (Negative) unknown) (unknown) (no (unknown) (unknown) Urine Protein (units ( unknown) date) Negative unknown) (Negative) (unknown) (no (unknown) (unknown) Urine RBC (units (unkn own) date) (0-5/HPF) unknown) (unknown) (no (unknown) (unknown) Urine RBC None (units (unknown) date) seen (0-5/HPF) unknown) (unknown) (no (unknown) (unknown) Urine (units (unkno wn) date) Urobilinogen (0.2) unknown) E.U./dL (unknown) (no (unknown) (unknown) Urine (units (unkno wn) date) Urobilinogen 0.2 unknown) (0.2) E.U./dL (unknown) (no (unknown) (unknown) Urine WBC (units (unkn own) date) (0-5/HPF) unknown) (unknown) (no (unknown) (unknown) Urine WBC None (units (unknown) date) seen (0-5/HPF) unknown) (unknown) (no (unknown) (unknown) Urine pH (units (unkno wn) date) (4.5-8.0) unknown) (unknown) (no (unknown) (unknown) Urine pH 5.5 (units (u nknown) date) (4.5-8.0) unknown) (unknown) (no (unknown) (unknown) Vital Signs - 8 (units (unknown) date) hr unknown) (unknown) (no (unknown) (unknown) Vital Signs (units (un known) date) unknown) (unknown) (no (unknown) (unknown) Vital signs: (units (u nknown) date) unknown) (unknown) (no (unknown) (unknown) WBC (4.5-11.0) (units (unknown) date) X103/uL unknown) (unknown) (no (unknown) (unknown) WBC 8.6 (units (unkno wn) date) (4.5-11.0) X103/uL unknown) (unknown) (no (unknown) (unknown) XR chest 1V Stat (units (unknown) date) unknown) (unknown) (no (unknown) (unknown) XRay Report (units (un known) date) unknown) (unknown) (no (unknown) (unknown) [Embedded Image (units (unknown) date) Not Available] unknown) (unknown) (no (unknown) (unknown) [normal sphincter (units (unknown) date) tone/decreased unknown) tone/no tone/deferred or refused]. Patient has (unknown) (no (unknown) (unknown) abnormality (units (un known) date) unknown) (unknown) (no (unknown) (unknown) admitted for (units (u nknown) date) atypical chest unknown) pain, low back pain and acute urinary retention and (unknown) (no (unknown) (unknown) alcohol intake: (units (unknown) date) former unknown) (unknown) (no (unknown) (unknown) and below (units (unkn own) date) unknown) (unknown) (no (unknown) (unknown) and negative (units (u nknown) date) range feels unknown) patient is appropriate to discharge from a cardiac (unknown) (no (unknown) (unknown) are 2/4 and lower (units (unknown) date) extremities. unknown) Dorsalis pedis and tibialis pulses are 2+ and (unknown) (no (unknown) (unknown) aspirin 81 mg (units ( unknown) date) Tablet,Delayed unknown) Release (Dr/Ec) (unknown) (no (unknown) (unknown) aspirin 81 mg (units ( unknown) date) tablet,delayed 81 unknown) mg PO DAILY #9 tabs 03/30/22 (unknown) (no (unknown) (unknown) atorvastatin 40 (units (unknown) date) mg tablet unknown) (Lipitor) 40 mg PO DAILY #90 tabs 03/30/22 (unknown) (no (unknown) (unknown) atorvastatin (units (u nknown) date) [Lipitor] 40 mg unknown) tablet (unknown) (no (unknown) (unknown) back in 1992. No (units (unknown) date) known drug unknown) allergies. He does use tobacco and smokes a (unknown) (no (unknown) (unknown) but a new urinary (units (unknown) date) retention with a L unknown) in his bladder he was discharged home on (unknown) (no (unknown) (unknown) capsule (units (unkno wn) date) unknown) (unknown) (no (unknown) (unknown) changed from (units (u nknown) date) - no ST unknown) elevation. (unknown) (no (unknown) (unknown) changes are seen. (units (unknown) date) ? Overlying soft unknown) tissues appear unremarkable.? (unknown) (no (unknown) (unknown) cough or (units (unkno wn) date) congestion. He unknown) denies any bladder or fecal incontinence. Patient (unknown) (no (unknown) (unknown) current findings (units (unknown) date) today, at this unknown) time he states nonsurgical does not require (unknown) (no (unknown) (unknown) decreased range (units (unknown) date) of motion. Patient unknown) has pain and discomfort particularly in the (unknown) (no (unknown) (unknown) degenerative (units (u nknown) date) unknown) (unknown) (no (unknown) (unknown) difficulty with (units (unknown) date) dorsiflexion on unknown) the left foot. He endorses difficulty with (unknown) (no (unknown) (unknown) does have low back (units (unknown) date) pain which unknown) radiates particularly down his left leg and states (unknown) (no (unknown) (unknown) down his legs. (units (unknown) date) Patient states the unknown) chest pain has been present for the last 4-6 (unknown) (no (unknown) (unknown) elevation. (units (unk nown) date) T-waves are unknown) inverted in lateral leads V3 through V 5 which appears (unknown) (no (unknown) (unknown) emergent (units (unkno wn) date) treatment. He unknown) would recommend oral steroids for pain. From spinal (unknown) (no (unknown) (unknown) established with (units (unknown) date) a primary care. unknown) (unknown) (no (unknown) (unknown) exam does show (units (unknown) date) radicular changes unknown) but is inconsistent throughout exam. 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 He states it is quite painful he states (unknown) (no (unknown) (unknown) he states it is (units (unknown) date) sort of across his unknown) chest. He denies radiation elsewhere but (unknown) (no (unknown) (unknown) his medications (units (unknown) date) regularly. He unknown) states this feels very similar to his visit in (unknown) (no (unknown) (unknown) hospital. (units (unkn own) date) unknown) (unknown) (no (unknown) (unknown) hours. He states (units (unknown) date) no diaphoresis, no unknown) shortness of breath, no nausea or vomiting (unknown) (no (unknown) (unknown) household (units (unkn own) date) members: unknown) significant other (unknown) (no (unknown) (unknown) identified.? (units (u nknown) date) unknown) (unknown) (no (unknown) (unknown) incomplete (units (unk nown) date) unknown) (unknown) (no (unknown) (unknown) infiltrates are (units (unknown) date) seen.? No unknown) pneumothorax or significant pleural effusions are (unknown) (no (unknown) (unknown) inspiratory result (units (unknown) date) is noted, causing unknown) a crowded appearance to the lung markings.? (unknown) (no (unknown) (unknown) intact (units (unkno wn) date) unknown) (unknown) (no (unknown) (unknown) left lower (units (unk nown) date) abdomen. Patient's unknown) gait is not tested initially. Rectal exam is (unknown) (no (unknown) (unknown) losartan 25 mg (units (unknown) date) tablet 25 mg PO unknown) DAILY #90 tabs 03/30/22 (unknown) (no (unknown) (unknown) losartan 25 mg (units (unknown) date) tablet unknown) (unknown) (no (unknown) (unknown) lower (units (unkno wn) date) extremities. unknown) Sensation is intact in the lower extremities. (unknown) (no (unknown) (unknown) metformin 500 mg (units (unknown) date) tablet 500 mg PO unknown) BID #180 tabs 03/30/22 (unknown) (no (unknown) (unknown) metformin 500 mg (units (unknown) date) tablet unknown) (unknown) (no (unknown) (unknown) metoprolol (units (unk nown) date) succinate 25 mg 25 unknown) mg PO DAILY #90 tabs 03/30/22 (unknown) (no (unknown) (unknown) metoprolol (units (unk nown) date) succinate 25 mg unknown) tablet extended release 24 hr (unknown) (no (unknown) (unknown) moist mucous (units (u nknown) date) membranes unknown) (unknown) (no (unknown) (unknown) movement of the (units (unknown) date) left leg but can unknown) adjust himself in the bed without issue. DTRs (unknown) (no (unknown) (unknown) naproxen sodium (units (unknown) date) 220 mg capsule 220 unknown) mg PO BID 03/28/22 03/28/22 (unknown) (no (unknown) (unknown) naproxen sodium (units (unknown) date) [Aleve] 220 mg unknown) Capsule (unknown) (no (unknown) (unknown) no other ischemic (units (unknown) date) changes and an EF unknown) of 40%. Unclear if patient has been taking (unknown) (no (unknown) (unknown) or large pleural (units (unknown) date) effusions are unknown) seen.? No focal infiltrates are seen.? An (unknown) (no (unknown) (unknown) oxycodone 10 mg (units (unknown) date) and that was unknown) helpful. States his only surgeries or for his low (unknown) (no (unknown) (unknown) oxycodone 5 mg (units (unknown) date) tablet 5 mg PO unknown) Q8HR PRN Pain. #20 tabs 03/30/22 (unknown) (no (unknown) (unknown) oxycodone 5 mg (units (unknown) date) tablet unknown) (unknown) (no (unknown) (unknown) pantoprazole 40 (units (unknown) date) mg PO BID ##0 unknown) 11/01/20 (unknown) (no (unknown) (unknown) pantoprazole (units (u nknown) date) tablet unknown) (unknown) (no (unknown) (unknown) perspective (units (un known) date) patient can be DC unknown) home and does not require being seen in the (unknown) (no (unknown) (unknown) pneumothorax (units (u nknown) date) unknown) (unknown) (no (unknown) (unknown) quarter to a 3rd (units (unknown) date) pack daily, unknown) occasional alcohol, no illicit. He has not (unknown) (no (unknown) (unknown) release (units (unkno wn) date) unknown) (unknown) (no (unknown) (unknown) seen. ? (units (unkno wn) date) unknown) (unknown) (no (unknown) (unknown) sometimes he has (units (unknown) date) weakness in that unknown) leg but not currently. He denies fevers, cold (unknown) (no (unknown) (unknown) standpoint. (units (un known) date) Review patient's unknown) ST changes today. His myocardial perfusion stress (unknown) (no (unknown) (unknown) states he had (units ( unknown) date) aspirin, nitro unknown) sublingual x3 and morphine EN route with EMS and (unknown) (no (unknown) (unknown) states that he is (units (unknown) date) not any pain unknown) medication for his back but used to be on (unknown) (no (unknown) (unknown) tablet,extended (units (unknown) date) release 24 hr unknown) (unknown) (no (unknown) (unknown) tamsulosin 0.4 mg (units (unknown) date) capsule (Flomax) unknown) 0.4 mg PO BEDTIME #90 caps 03/30/22 (unknown) (no (unknown) (unknown) tamsulosin (units (unk nown) date) [Flomax] 0.4 mg unknown) Capsule (unknown) (no (unknown) (unknown) that he was (units (un known) date) restarted on his unknown) medications unclear if he is taking them daily (unknown) (no (unknown) (unknown) that it changed (units (unknown) date) nothing about his unknown) chest pain or his back pain. States this is (unknown) (no (unknown) (unknown) took it 4 weeks (units (unknown) date) ago. unknown) (unknown) (no (unknown) (unknown) very similar to (units (unknown) date) when he was here unknown) in March and admitted at that time he was (unknown) (no (unknown) (unknown) with EF of 40-55% (units (unknown) date) and a lumbar MRI unknown) which showed no cord compression or stenosis Result panel 604 (unknown) (no date) (unknown) (unknown) < 0.012 ng/ml (unkn own) (unknown) (no date) (unknown) (unknown) < 0.012 ng/ml (unkn own) Result panel 605 (unknown) (no (unknown) (unknown) (no value) (units (unk nown) date) unknown) (unknown) (no (unknown) (unknown) (Aleve) (units (unkno wn) date) unknown) (unknown) (no (unknown) (unknown) 0.4 mg PO BEDTIME (units (unknown) date) Qty: 90 0RF unknown) (unknown) (no (unknown) (unknown) 10/31/20 (units (unkno wn) date) unknown) (unknown) (no (unknown) (unknown) 11/01/20 (units (unkno wn) date) unknown) (unknown) (no (unknown) (unknown) 03/28/22 (units (unkno wn) date) unknown) (unknown) (no (unknown) (unknown) 03/29/22 (units (unkno wn) date) unknown) (unknown) (no (unknown) (unknown) 04/30/22 04/30/22 (units (unknown) date) 04/30/22 unknown) Range/Units (unknown) (no (unknown) (unknown) 04/30/22 04/30/22 (units (unknown) date) Range/Units unknown) (unknown) (no (unknown) (unknown) 04/30/22 19:01 (units (unknown) date) unknown) (unknown) (no (unknown) (unknown) 04/30/22 19:06 (units (unknown) date) unknown) (unknown) (no (unknown) (unknown) 04/30/22 19:10 (units (unknown) date) unknown) (unknown) (no (unknown) (unknown) 04/30/22 19:50 (units (unknown) date) unknown) (unknown) (no (unknown) (unknown) 04/30/22 21:00 (units (unknown) date) unknown) (unknown) (no (unknown) (unknown) 04/30/22 23:30 (units (unknown) date) unknown) (unknown) (no (unknown) (unknown) 04/30/22 23:38 (units (unknown) date) unknown) (unknown) (no (unknown) (unknown) 04/30/22 (units (unkno wn) date) unknown) (unknown) (no (unknown) (unknown) [address] (units (unknown) date) unknown) (unknown) (no (unknown) (unknown) 134 mg PO DAILY (units (unknown) date) unknown) (unknown) (no (unknown) (unknown) 18:59 04/30/22 (units (unknown) date) unknown) (unknown) (no (unknown) (unknown) 19:00 04/30/22 (units (unknown) date) unknown) (unknown) (no (unknown) (unknown) 19:00 (units (unkno wn) date) unknown) (unknown) (no (unknown) (unknown) 19:01 19:01 19:01 (units (unknown) date) unknown) (unknown) (no (unknown) (unknown) 19:01 19:06 19:50 (units (unknown) date) unknown) (unknown) (no (unknown) (unknown) 19:02 04/30/22 (units (unknown) date) unknown) (unknown) (no (unknown) (unknown) 19:15 04/30/22 (units (unknown) date) unknown) (unknown) (no (unknown) (unknown) 19:15 (units (unkno wn) date) unknown) (unknown) (no (unknown) (unknown) 19:30 04/30/22 (units (unknown) date) unknown) (unknown) (no (unknown) (unknown) 19:51 04/30/22 (units (unknown) date) unknown) (unknown) (no (unknown) (unknown) 19:51 (units (unkno wn) date) unknown) (unknown) (no (unknown) (unknown) 20:00 04/30/22 (units (unknown) date) unknown) (unknown) (no (unknown) (unknown) 20:00 (units (unkno wn) date) unknown) (unknown) (no (unknown) (unknown) 20:30 04/30/22 (units (unknown) date) unknown) (unknown) (no (unknown) (unknown) 21:00 04/30/22 (units (unknown) date) unknown) (unknown) (no (unknown) (unknown) 21:00 23:30 (units (un known) date) unknown) (unknown) (no (unknown) (unknown) 21:00 (units (unkno wn) date) unknown) (unknown) (no (unknown) (unknown) 21:30 04/30/22 (units (unknown) date) unknown) (unknown) (no (unknown) (unknown) 21:30 (units (unkno wn) date) unknown) (unknown) (no (unknown) (unknown) 220 mg PO BID (units ( unknown) date) unknown) (unknown) (no (unknown) (unknown) 22:00 04/30/22 (units (unknown) date) unknown) (unknown) (no (unknown) (unknown) 22:30 04/30/22 (units (unknown) date) unknown) (unknown) (no (unknown) (unknown) 22:30 (units (unkno wn) date) unknown) (unknown) (no (unknown) (unknown) 23:00 04/30/22 (units (unknown) date) unknown) (unknown) (no (unknown) (unknown) 23:00 (units (unkno wn) date) unknown) (unknown) (no (unknown) (unknown) 23:01.? [place] (units (unknown) date) unknown) (unknown) (no (unknown) (unknown) 23:30 04/30/22 (units (unknown) date) unknown) (unknown) (no (unknown) (unknown) 23:30 (units (unkno wn) date) unknown) (unknown) (no (unknown) (unknown) 25 mg PO DAILY (units (unknown) date) Qty: 90 0RF unknown) (unknown) (no (unknown) (unknown) [id number] (units (unkno wn) date) unknown) (unknown) (no (unknown) (unknown) 40 mg PO BID Qty: (units (unknown) date) 0 0RF unknown) (unknown) (no (unknown) (unknown) 40 mg PO DAILY (units (unknown) date) Qty: 10 0RF unknown) (unknown) (no (unknown) (unknown) 40 mg PO DAILY (units (unknown) date) Qty: 90 0RF unknown) (unknown) (no (unknown) (unknown) 5 MG PO Q8HR As (units (unknown) date) Needed for Pain unknown) (unknown) (no (unknown) (unknown) 5 mg PO Q6H PRN (units (unknown) date) (Reason: pain) unknown) Qty: 10 0RF (unknown) (no (unknown) (unknown) 5 mg PO Q8HR PRN (units (unknown) date) (Reason: Pain.) unknown) Qty: 20 0RF (unknown) (no (unknown) (unknown) 500 mg PO BID (units ( unknown) date) Qty: 180 0RF unknown) (unknown) (no (unknown) (unknown) 81 mg PO DAILY (units (unknown) date) Qty: 9 0RF unknown) (unknown) (no (unknown) (unknown) ? (units (unkno wn) date) unknown) (unknown) (no (unknown) (unknown) ABDOMEN: Soft, (units (unknown) date) nontender. unknown) Normoactive bowel sounds all 4 quadrants. No (unknown) (no (unknown) (unknown) ALT (<50) IU/L (units (unknown) date) unknown) (unknown) (no (unknown) (unknown) ALT 42 (<50) IU/L (units (unknown) date) unknown) (unknown) (no (unknown) (unknown) AST (17-59) IU/L (units (unknown) date) unknown) (unknown) (no (unknown) (unknown) AST 49 (17-59) (units (unknown) date) IU/L unknown) (unknown) (no (unknown) (unknown) Abdomen (units (unkno wn) date) Ultrasound unknown) (Signed) (unknown) (no (unknown) (unknown) Abdomen/Pelvis CT (units (unknown) date) (Signed) unknown) (unknown) (no (unknown) (unknown) Accession Number: (units (unknown) date) [id number] ?? unknown) (unknown) (no (unknown) (unknown) Acct:[id number] (units (unknown) date) unknown) (unknown) (no (unknown) (unknown) Activity (units (unkno wn) date) Restrictions/Addit unknown) ional Instructions: (unknown) (no (unknown) (unknown) Age/Sex: 66 / M (units (unknown) date) unknown) (unknown) (no (unknown) (unknown) Albumin (3.5-5.0) (units (unknown) date) g/dL unknown) (unknown) (no (unknown) (unknown) Albumin 3.9 (units (un known) date) (3.5-5.0) g/dL unknown) (unknown) (no (unknown) (unknown) Albumin/Globulin (units (unknown) date) Ratio (1.0-2.8) unknown) (unknown) (no (unknown) (unknown) Albumin/Globulin (units (unknown) date) Ratio 1.4 unknown) (1.0-2.8) (unknown) (no (unknown) (unknown) Alkaline (units (unkno wn) date) Phosphatase unknown) (38-126) U/L (unknown) (no (unknown) (unknown) Alkaline (units (unkno wn) date) Phosphatase 100 unknown) (38-126) U/L (unknown) (no (unknown) (unknown) Allergies (units (unkn own) date) unknown) (unknown) (no (unknown) (unknown) Allergy/AdvReac (units (unknown) date) Type Severity unknown) Reaction Status Date / Time (unknown) (no (unknown) (unknown) AJIT [place] (units ( unknown) date) [id number] unknown) (unknown) (no (unknown) (unknown) Approved by: (units (u nknown) date) jovon Mancuso M.D. on 04/30/2022 at 19:20?? (unknown) (no (unknown) (unknown) Attestation: I (units (unknown) date) personally unknown) reviewed and interpreted this ECG as follows: (unknown) (no (unknown) (unknown) Atypical chest (units (unknown) date) pain, Left lumbar unknown) radiculopathy (unknown) (no (unknown) (unknown) BACK: No (units (unkno wn) date) cervical, thoracic unknown) or lumbar vertebral point tenderness. Patient has (unknown) (no (unknown) (unknown) BNP [NT-proBNP (units (unknown) date) (BNP-Adult 18+)] unknown) Stat (unknown) (no (unknown) (unknown) BUN (9-20) mg/dL (units (unknown) date) unknown) (unknown) (no (unknown) (unknown) BUN 7 L (9-20) (units (unknown) date) mg/dL unknown) (unknown) (no (unknown) (unknown) BUN/Creatinine (units (unknown) date) Ratio (6-22) unknown) (unknown) (no (unknown) (unknown) BUN/Creatinine (units (unknown) date) Ratio 10.6 (6-22) unknown) (unknown) (no (unknown) (unknown) Baso # (Auto) (units ( unknown) date) (0-100) /uL unknown) (unknown) (no (unknown) (unknown) Baso # (Auto) 200 (units (unknown) date) H (0-100) /uL unknown) (unknown) (no (unknown) (unknown) Baso % (Auto) (units ( unknown) date) (0-2) % unknown) (unknown) (no (unknown) (unknown) Baso % (Auto) 2.0 (units (unknown) date) (0-2) % unknown) (unknown) (no (unknown) (unknown) Blood Pressure (units (unknown) date) 104/69 unknown) (unknown) (no (unknown) (unknown) Blood Pressure (units (unknown) date) 105/73 unknown) (unknown) (no (unknown) (unknown) Blood Pressure (units (unknown) date) 108/65 unknown) (unknown) (no (unknown) (unknown) Blood Pressure (units (unknown) date) 109/60 97/61 unknown) (unknown) (no (unknown) (unknown) Blood Pressure (units (unknown) date) 109/60 unknown) (unknown) (no (unknown) (unknown) Blood Pressure (units (unknown) date) 109/67 107/64 unknown) (unknown) (no (unknown) (unknown) Blood Pressure (units (unknown) date) 110/62 112/66 unknown) (unknown) (no (unknown) (unknown) Blood Pressure (units (unknown) date) 137/72 unknown) (unknown) (no (unknown) (unknown) Blood Pressure (units (unknown) date) 98/68 98/68 unknown) (unknown) (no (unknown) (unknown) Bones and chest (units (unknown) date) wall:? No unknown) suspicious bony lesions.? Age-appropriate bony (unknown) (no (unknown) (unknown) CARDIOVASCULAR: (units (unknown) date) Regular rate and unknown) rhythm without murmurs, rubs or gallops. (unknown) (no (unknown) (unknown) CK-MB (CK-2) Rel (units (unknown) date) Index TNP unknown) (unknown) (no (unknown) (unknown) CK-MB (CK-2) Rel (units (unknown) date) Index unknown) (unknown) (no (unknown) (unknown) CK-MB (CK-2) TNP (units (unknown) date) unknown) (unknown) (no (unknown) (unknown) CK-MB (CK-2) (units (u nknown) date) unknown) (unknown) (no (unknown) (unknown) COMPARISON:? (units (u nknown) date) [facility], unknown) CT, CT ANGIO CHEST PE PROTOCOL, 03/28/2022, (unknown) (no (unknown) (unknown) Calcium (units (unkno wn) date) (8.4-10.2) mg/dL unknown) (unknown) (no (unknown) (unknown) Calcium 8.1 L (units ( unknown) date) (8.4-10.2) mg/dL unknown) (unknown) (no (unknown) (unknown) Call,Michele (units (unk nown) date) unknown) (unknown) (no (unknown) (unknown) Carbon Dioxide (units (unknown) date) (22-32) mmol/L unknown) (unknown) (no (unknown) (unknown) Carbon Dioxide 17 (units (unknown) date) L (22-32) mmol/L unknown) (unknown) (no (unknown) (unknown) Chest CTA (units (unkn own) date) (Signed) unknown) (unknown) (no (unknown) (unknown) Chest X-Ray (units (un known) date) (Signed) unknown) (unknown) (no (unknown) (unknown) Chest x-ray: (units (u nknown) date) unknown) (unknown) (no (unknown) (unknown) Chief Complaint: (units (unknown) date) Chest Pain unknown) (unknown) (no (unknown) (unknown) Chloride (98-107) (units (unknown) date) mmol/L unknown) (unknown) (no (unknown) (unknown) Chloride 104 (units (u nknown) date) (98-107) mmol/L unknown) (unknown) (no (unknown) (unknown) Clinical (units (unkno wn) date) Impression: unknown) (unknown) (no (unknown) (unknown) Close (units (unkno wn) date) unknown) (unknown) (no (unknown) (unknown) Complete Blood (units (unknown) date) Count AUTO DIFF unknown) Stat (unknown) (no (unknown) (unknown) Comprehensive (units ( unknown) date) Metabolic Panel unknown) Stat (unknown) (no (unknown) (unknown) Consultation #1: (units (unknown) date) unknown) (unknown) (no (unknown) (unknown) Consultation #2: (units (unknown) date) unknown) (unknown) (no (unknown) (unknown) Consultations (units ( unknown) date) unknown) (unknown) (no (unknown) (unknown) Coronary artery (units (unknown) date) disease unknown) (unknown) (no (unknown) (unknown) Course (units (unkno wn) date) unknown) (unknown) (no (unknown) (unknown) Covid-19 + FLU (units (unknown) date) A/B + RSV - PCR unknown) Stat (unknown) (no (unknown) (unknown) Creatinine (units (unk nown) date) (0.66-1.25) mg/dL unknown) (unknown) (no (unknown) (unknown) Creatinine 0.66 (units (unknown) date) (0.66-1.25) mg/dL unknown) (unknown) (no (unknown) (unknown) : 1955 (units (unknown) date) Acct:[id number] unknown) (unknown) (no (unknown) (unknown) : 1955 (units (unknown) date) unknown) (unknown) (no (unknown) (unknown) Date of Service: (units (unknown) date) 04/30/22 unknown) (unknown) (no (unknown) (unknown) Departure (units (unkn own) date) unknown) (unknown) (no (unknown) (unknown) Diabetes type 2, (units (unknown) date) uncontrolled unknown) (unknown) (no (unknown) (unknown) Dictated by: (units (u nknown) date) Mikael Coyle, unknown) SadeD. on 04/30/2022 at 19:20 ? ? (unknown) (no (unknown) (unknown) Discharge Plan (units (unknown) date) unknown) (unknown) (no (unknown) (unknown) Discontinued (units (u nknown) date) Medications unknown) (unknown) (no (unknown) (unknown) Documented By: (units (unknown) date) JESÚS unknown) (unknown) (no (unknown) (unknown) Chaitanya Hodge (units (u nknown) date) unknown) (unknown) (no (unknown) (unknown) Dr. Caicedo, (units (u nknown) date) cardiology unknown) recommends repeat 4 hour troponin from initial if still (unknown) (no (unknown) (unknown) Dr. John, (units (unkno wn) date) orthopedic unknown) surgery. Reviewed patient's MRI from March 29, 2022 his (unknown) (no (unknown) (unknown) ECG Data (units (unkno wn) date) unknown) (unknown) (no (unknown) (unknown) ED Orders (units (unkn own) date) unknown) (unknown) (no (unknown) (unknown) EKG 2. Sinus (units (u nknown) date) rhythm, rate 80 2p unknown) are 108 QRS of 106 and QTC 446. No acute ST (unknown) (no (unknown) (unknown) EKG-12 Lead Stat (units (unknown) date) unknown) (unknown) (no (unknown) (unknown) ER Physician: (units ( unknown) date) Emma Stevens D.O. unknown) (unknown) (no (unknown) (unknown) ETOH [Ethanol (units ( unknown) date) (ETOH)] Stat unknown) (unknown) (no (unknown) (unknown) EXTREMITIES: (units (u nknown) date) Normal range of unknown) motion, no clubbing or edema. Neurovascularly (unknown) (no (unknown) (unknown) Echocardiogram (units (unknown) date) Ultrasound unknown) (Signed) (unknown) (no (unknown) (unknown) Elevated blood (units (unknown) date) alcohol level unknown) (unknown) (no (unknown) (unknown) Emergency Report (units (unknown) date) unknown) (unknown) (no (unknown) (unknown) Eos # (Auto) (units (u nknown) date) (0-450) /uL unknown) (unknown) (no (unknown) (unknown) Eos # (Auto) 300 (units (unknown) date) (0-450) /uL unknown) (unknown) (no (unknown) (unknown) Eos % (Auto) (units (u nknown) date) (2-4) % unknown) (unknown) (no (unknown) (unknown) Eos % (Auto) 3.5 (units (unknown) date) (2-4) % unknown) (unknown) (no (unknown) (unknown) Estimated GFR > (units (unknown) date) 60 (>60) mL/min unknown) (unknown) (no (unknown) (unknown) Estimated GFR (units ( unknown) date) (>60) mL/min unknown) (unknown) (no (unknown) (unknown) Ethyl Alcohol ( - (units (unknown) date) 10) mg/dL unknown) (unknown) (no (unknown) (unknown) Ethyl Alcohol 133 (units (unknown) date) H ( - 10) mg/dL unknown) (unknown) (no (unknown) (unknown) Exam Narrative: (units (unknown) date) unknown) (unknown) (no (unknown) (unknown) Exam (units (unkno wn) date) unknown) (unknown) (no (unknown) (unknown) FINDINGS:? (units (unk nown) date) unknown) (unknown) (no (unknown) (unknown) Family History (units (unknown) date) (Reviewed 04/30/22 unknown) @ 19:35 by Emma Stevens DO) (unknown) (no (unknown) (unknown) Father (units (unknown) date) Lung cancer unknown) (unknown) (no (unknown) (unknown) Flomax and on his (units (unknown) date) diabetic unknown) medications and heart medications. Patient does note (unknown) (no (unknown) (unknown) GENERAL: Alert (units (unknown) date) and oriented x unknown) three, male in mild distress (unknown) (no (unknown) (unknown) : No CVA (units (unk nown) date) tenderness unknown) (unknown) (no (unknown) (unknown) General (units (unkno wn) date) unknown) (unknown) (no (unknown) (unknown) Globulin (units (unkno wn) date) (1.7-4.1) g/dL unknown) (unknown) (no (unknown) (unknown) Globulin 2.8 (units (u nknown) date) (1.7-4.1) g/dL unknown) (unknown) (no (unknown) (unknown) Glucose (80-110) (units (unknown) date) mg/dL unknown) (unknown) (no (unknown) (unknown) Glucose 206 H (units ( unknown) date) (80-110) mg/dL unknown) (unknown) (no (unknown) (unknown) H/O heart artery (units (unknown) date) stent unknown) (unknown) (no (unknown) (unknown) HEENT: Head (units (un known) date) normocephalic, unknown) atraumatic, EOMI, pupils reactive, face symmetric, (unknown) (no (unknown) (unknown) HPI - Chest Pain (units (unknown) date) unknown) (unknown) (no (unknown) (unknown) HPI narrative: (units (unknown) date) unknown) (unknown) (no (unknown) (unknown) Hct (41-53) % (units ( unknown) date) unknown) (unknown) (no (unknown) (unknown) Hct 44.2 (41-53) (units (unknown) date) % unknown) (unknown) (no (unknown) (unknown) Hgb (13.5-17.5) (units (unknown) date) g/dL unknown) (unknown) (no (unknown) (unknown) Hgb 15.4 (units (unkno wn) date) (13.5-17.5) g/dL unknown) (unknown) (no (unknown) (unknown) History of (units (unk nown) date) Present Illness unknown) (unknown) (no (unknown) (unknown) Home Medications (units (unknown) date) unknown) (unknown) (no (unknown) (unknown) Hospital, CR, XR (units (unknown) date) CHEST 1V, unknown) 03/28/2022, 18:51. 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 (units (u nknown) date) unknown) (unknown) (no (unknown) (unknown) INDICATIONS:? (units ( unknown) date) chest pain unknown) (unknown) (no (unknown) (unknown) Imaging Data (units (u nknown) date) unknown) (unknown) (no (unknown) (unknown) Influenza A (units (un known) date) (RT-PCR) unknown) (NEGATIVE) (unknown) (no (unknown) (unknown) Influenza A (units (un known) date) (RT-PCR) Flu a unknown) negative (NEGATIVE) (unknown) (no (unknown) (unknown) Influenza B (units (un known) date) (RT-PCR) unknown) (NEGATIVE) (unknown) (no (unknown) (unknown) Influenza B (units (un known) date) (RT-PCR) Flu b unknown) negative (NEGATIVE) (unknown) (no (unknown) (unknown) Initial Vital (units ( unknown) date) Signs unknown) (unknown) (no (unknown) (unknown) Initial Vital (units ( unknown) date) Signs: unknown) (unknown) (no (unknown) (unknown) Instructions: DI (units (unknown) date) for Atypical Chest unknown) Pain (unknown) (no (unknown) (unknown) Interpretation: (units (unknown) date) unknown) (unknown) (no (unknown) (unknown) [facility] (units (unknown) date) [address] unknown) [place] [address] (unknown) (no (unknown) (unknown) [facility] (units (unknown) date) unknown) (unknown) (no (unknown) (unknown) Mikael Coyle (units ( unknown) date) unknown) (unknown) (no (unknown) (unknown) Lab Data (units (unkno wn) date) unknown) (unknown) (no (unknown) (unknown) Lab Results (units (un known) date) unknown) (unknown) (no (unknown) (unknown) Label Comments: (units (unknown) date) unknown) (unknown) (no (unknown) (unknown) Labs: (units (unkno wn) date) unknown) (unknown) (no (unknown) (unknown) Last Admin: (units (un known) date) 04/30/22 20:00 unknown) Dose: 10 mg (unknown) (no (unknown) (unknown) Launch?Image (units (u nknown) date) unknown) (unknown) (no (unknown) (unknown) Limitations: no (units (unknown) date) limitations unknown) (unknown) (no (unknown) (unknown) Limited portable (units (unknown) date) chest examination, unknown) without a significant cardiopulmonary (unknown) (no (unknown) (unknown) Lipase (23-300) (units (unknown) date) U/L unknown) (unknown) (no (unknown) (unknown) Lipase 381 H (units (u nknown) date) (23-300) U/L unknown) (unknown) (no (unknown) (unknown) Lipase Stat (units (un known) date) unknown) (unknown) (no (unknown) (unknown) Loc: ED (units (unkno wn) date) unknown) (unknown) (no (unknown) (unknown) Lumbar Spine MRI (units (unknown) date) (Cancelled) unknown) (unknown) (no (unknown) (unknown) Lumbar Spine MRI (units (unknown) date) (Signed) unknown) (unknown) (no (unknown) (unknown) Lungs and (units (unkn own) date) pleura:? On this unknown) semiupright portable chest examination, no large (unknown) (no (unknown) (unknown) Lymph # (Auto) (units (unknown) date) (9129-4202) /uL unknown) (unknown) (no (unknown) (unknown) Lymph # (Auto) (units (unknown) date) 2900 (2926-3404) unknown) /uL (unknown) (no (unknown) (unknown) Lymph % (Auto) (units (unknown) date) (25-40) % unknown) (unknown) (no (unknown) (unknown) Lymph % (Auto) (units (unknown) date) 33.9 (25-40) % unknown) (unknown) (no (unknown) (unknown) MCH (26-34) PG (units (unknown) date) unknown) (unknown) (no (unknown) (unknown) MCH 30.3 (26-34) (units (unknown) date) PG unknown) (unknown) (no (unknown) (unknown) MCHC (30-36) % (units (unknown) date) unknown) (unknown) (no (unknown) (unknown) MCHC 34.9 (30-36) (units (unknown) date) % unknown) (unknown) (no (unknown) (unknown) MCV (80-100) fL (units (unknown) date) unknown) (unknown) (no (unknown) (unknown) MCV 86.9 (80-100) (units (unknown) date) fL unknown) (unknown) (no (unknown) (unknown) MDM - Chest Pain (units (unknown) date) unknown) (unknown) (no (unknown) (unknown) MDM Narrative (units ( unknown) date) unknown) (unknown) (no (unknown) (unknown) MR#: [id number] (units (unknown) date) unknown) (unknown) (no (unknown) (unknown) MRI at that time (units (unknown) date) which showed disc unknown) bulge but no stenosis or emergent changes. (unknown) (no (unknown) (unknown) Magnesium (units (unkn own) date) (1.6-2.3) mg/dL unknown) (unknown) (no (unknown) (unknown) Magnesium 1.6 (units ( unknown) date) (1.6-2.3) mg/dL unknown) (unknown) (no (unknown) (unknown) Magnesium Stat (units (unknown) date) unknown) (unknown) (no (unknown) (unknown) Mediastinum:? (units ( unknown) date) Mediastinal unknown) contours appear normal.? Heart size is normal.? (unknown) (no (unknown) (unknown) Medical History (units (unknown) date) (Reviewed 04/30/22 unknown) @ 19:35 by Emma Stevens DO) (unknown) (no (unknown) (unknown) Medical decision (units (unknown) date) making narrative: unknown) (unknown) (no (unknown) (unknown) Medication (units (unk nown) date) Instructions unknown) Recorded Confirmed (unknown) (no (unknown) (unknown) Medication (units (unk nown) date) Instructions unknown) Recorded (unknown) (no (unknown) (unknown) Radha Dunn (units (unknown) date) unknown) (unknown) (no (unknown) (unknown) Miscellaneous,Doc (units (unknown) date) MD shaggy [Primary unknown) Care Provider] (unknown) (no (unknown) (unknown) Mode of arrival: (units (unknown) date) EMS unknown) (unknown) (no (unknown) (unknown) [place] # (Auto) (units ( unknown) date) (0-900) /uL unknown) (unknown) (no (unknown) (unknown) [place] # (Auto) 800 (units (unknown) date) (0-900) /uL unknown) (unknown) (no (unknown) (unknown) [place] % (Auto) (units ( unknown) date) (3-14) % unknown) (unknown) (no (unknown) (unknown) [place] % (Auto) 8.9 (units (unknown) date) (3-14) % unknown) (unknown) (no (unknown) (unknown) [facility] (units (unknown) date) history unknown unknown) (unknown) (no (unknown) (unknown) Myocardial (units (unk nown) date) Perfusion Scan Nuc unknown) Med (Signed) (unknown) (no (unknown) (unknown) NECK: Supple, (units ( unknown) date) full range of unknown) motion (unknown) (no (unknown) (unknown) NEUROLOGICAL: (units ( unknown) date) Cranial nerves II unknown) through XII grossly intact. Moving all (unknown) (no (unknown) (unknown) NT-Pro-B (units (unkno wn) date) Natriuret Pep unknown) (<125) pg/mL (unknown) (no (unknown) (unknown) NT-Pro-B (units (unkno wn) date) Natriuret Pep 246 unknown) H (<125) pg/mL (unknown) (no (unknown) (unknown) Narrative (units (unkn own) date) unknown) (unknown) (no (unknown) (unknown) Neut # (Auto) (units ( unknown) date) (6514-6487) /uL unknown) (unknown) (no (unknown) (unknown) Neut # (Auto) (units ( unknown) date) 4500 (4001-7641) unknown) /uL (unknown) (no (unknown) (unknown) Neut % (Auto) (units ( unknown) date) (50-75) % unknown) (unknown) (no (unknown) (unknown) Neut % (Auto) (units ( unknown) date) 51.7 (50-75) % unknown) (unknown) (no (unknown) (unknown) New (units (unkno wn) date) unknown) (unknown) (no (unknown) (unknown) No Action (units (unkn own) date) unknown) (unknown) (no (unknown) (unknown) No Known Drug (units ( unknown) date) Allergies Allergy unknown) Verified 10/31/20 23:10 (unknown) (no (unknown) (unknown) No focal (units (unkno wn) date) unknown) (unknown) (no (unknown) (unknown) March as well (units (unknown) date) as low back pain unknown) and radicular symptoms. Patient had an lumbar (unknown) (no (unknown) (unknown) March. EKG does (units (unknown) date) show new ST unknown) depression, initial troponin is negative, patient (unknown) (no (unknown) (unknown) Ordered: (units (unkno wn) date) unknown) (unknown) (no (unknown) (unknown) Ordering (units (unkno wn) date) Provider: unknown) Emma Stevens D.O. (unknown) (no (unknown) (unknown) Orders (units (unkno wn) date) unknown) (unknown) (no (unknown) (unknown) Oxycodone HCl (units ( unknown) date) (Oxycodone Ir 10 unknown) Mg Tablet) 10 mg PO Q6HR PRN (unknown) (no (unknown) (unknown) Oxycodone HCl (units ( unknown) date) (Oxycodone Ir 5 Mg unknown) Tablet) 10 mg PO NOW ONE (unknown) (no (unknown) (unknown) Oxygen Delivery (units (unknown) date) Method Room Air unknown) (unknown) (no (unknown) (unknown) Oxygen Delivery (units (unknown) date) Method unknown) (unknown) (no (unknown) (unknown) PRN Reason: Pain, (units (unknown) date) Severe (7-10) unknown) (unknown) (no (unknown) (unknown) PROCEDURE:? XR (units (unknown) date) CHEST 1V unknown) (unknown) (no (unknown) (unknown) Patient (units (unkno wn) date) Disposition: Home unknown) (unknown) (no (unknown) (unknown) Patient History (units (unknown) date) unknown) (unknown) (no (unknown) (unknown) Patient had a (units ( unknown) date) repeat troponin 4 unknown) hours from initial if still negative feels (unknown) (no (unknown) (unknown) Patient's did have (units (unknown) date) stress testing at unknown) that time which had a fixed wall defect but (unknown) (no (unknown) (unknown) Patient: (units (unkno wn) date) Frank Chan MR#: unknown) [id number] (unknown) (no (unknown) (unknown) Patient: (units (unkno wn) date) Frank Chan unknown) (unknown) (no (unknown) (unknown) Donavon Fonseca (units (un known) date) unknown) (unknown) (no (unknown) (unknown) Please continue (units (unknown) date) taking the unknown) medications for your heart as prescribed. (unknown) (no (unknown) (unknown) Please return for (units (unknown) date) new or worsening unknown) symptoms loss of bowel or bladder control, (unknown) (no (unknown) (unknown) Plt Count (units (unkn own) date) (150-400) X103/uL unknown) (unknown) (no (unknown) (unknown) Plt Count 159 (units ( unknown) date) (150-400) X103/uL unknown) (unknown) (no (unknown) (unknown) Potassium (units (unkn own) date) (3.4-5.1) mmol/L unknown) (unknown) (no (unknown) (unknown) Potassium 4.2 (units ( unknown) date) (3.4-5.1) mmol/L unknown) (unknown) (no (unknown) (unknown) Prednisone (units (unk nown) date) (Prednisone 20 Mg unknown) Tablet) 40 mg PO NOW ONE (unknown) (no (unknown) (unknown) Prescription sent (units (unknown) date) to [facility] unknown[facility] [place]. (unknown) (no (unknown) (unknown) Prescriptions: (units (unknown) date) unknown) (unknown) (no (unknown) (unknown) Previous Rx's (units ( unknown) date) unknown) (unknown) (no (unknown) (unknown) Procedure: XR (units ( unknown) date) chest 1V unknown) (unknown) (no (unknown) (unknown) Pulse Oximetry 94 (units (unknown) date) 93 unknown) (unknown) (no (unknown) (unknown) Pulse Oximetry 94 (units (unknown) date) 95 unknown) (unknown) (no (unknown) (unknown) Pulse Oximetry 94 (units (unknown) date) unknown) (unknown) (no (unknown) (unknown) Pulse Oximetry 95 (units (unknown) date) 04/30/22 18:59 unknown) (unknown) (no (unknown) (unknown) Pulse Oximetry 95 (units (unknown) date) 94 unknown) (unknown) (no (unknown) (unknown) Pulse Oximetry 95 (units (unknown) date) 97 unknown) (unknown) (no (unknown) (unknown) Pulse Oximetry 97 (units (unknown) date) 95 unknown) (unknown) (no (unknown) (unknown) Pulse Rate 79 81 (units (unknown) date) unknown) (unknown) (no (unknown) (unknown) Pulse Rate 81 (units ( unknown) date) unknown) (unknown) (no (unknown) (unknown) Pulse Rate 82 79 (units (unknown) date) unknown) (unknown) (no (unknown) (unknown) Pulse Rate 84 (units ( unknown) date) unknown) (unknown) (no (unknown) (unknown) Pulse Rate 91 H (units (unknown) date) 04/30/22 18:59 unknown) (unknown) (no (unknown) (unknown) Pulse Rate 92 H (units (unknown) date) 91 H unknown) (unknown) (no (unknown) (unknown) Pulse Rate 93 H (units (unknown) date) 86 unknown) (unknown) (no (unknown) (unknown) RBC (4.5-5.9) (units ( unknown) date) X106/uL unknown) (unknown) (no (unknown) (unknown) RBC 5.09 (units (unkno wn) date) (4.5-5.9) X106/uL unknown) (unknown) (no (unknown) (unknown) RDW (11.6-14.8) % (units (unknown) date) unknown) (unknown) (no (unknown) (unknown) RDW 13.4 (units (unkno wn) date) (11.6-14.8) % unknown) (unknown) (no (unknown) (unknown) RESPIRATORY: (units (u nknown) date) Breath sounds unknown) equal bilaterally, no wheezes rales or rhonchi. (unknown) (no (unknown) (unknown) ROS Unobtainable: (units (unknown) date) All systems unknown) reviewed + are unremarkable except as noted in HPI (unknown) (no (unknown) (unknown) RSV (PCR) (units (unkn own) date) (Negative) unknown) (unknown) (no (unknown) (unknown) RSV (PCR) (units (unkn own) date) Negative unknown) (Negative) (unknown) (no (unknown) (unknown) Radiologist's (units ( unknown) date) Impression: unknown) (unknown) (no (unknown) (unknown) Referrals: (units (unk nown) date) unknown) (unknown) (no (unknown) (unknown) Related Data (units (u nknown) date) unknown) (unknown) (no (unknown) (unknown) Respiratory Rate (units (unknown) date) 12 13 unknown) (unknown) (no (unknown) (unknown) Respiratory Rate (units (unknown) date) 13 15 unknown) (unknown) (no (unknown) (unknown) Respiratory Rate (units (unknown) date) 13 unknown) (unknown) (no (unknown) (unknown) Respiratory Rate (units (unknown) date) 14 unknown) (unknown) (no (unknown) (unknown) Respiratory Rate (units (unknown) date) 15 13 unknown) (unknown) (no (unknown) (unknown) Respiratory Rate (units (unknown) date) 15 unknown) (unknown) (no (unknown) (unknown) Respiratory Rate (units (unknown) date) 16 unknown) (unknown) (no (unknown) (unknown) Respiratory Rate (units (unknown) date) 17 15 unknown) (unknown) (no (unknown) (unknown) Respiratory Rate (units (unknown) date) 18 19 unknown) (unknown) (no (unknown) (unknown) Respiratory Rate (units (unknown) date) 19 04/30/22 18:59 unknown) (unknown) (no (unknown) (unknown) Result diagrams: (units (unknown) date) unknown) (unknown) (no (unknown) (unknown) Review of Systems (units (unknown) date) unknown) (unknown) (no (unknown) (unknown) Abdulkadir Garcia (units (u nknown) date) unknown) (unknown) (no (unknown) (unknown) SARS-CoV-2 (PCR) (units (unknown) date) (Negative) unknown) (unknown) (no (unknown) (unknown) SARS-CoV-2 (PCR) (units (unknown) date) Negative unknown) (Negative) (unknown) (no (unknown) (unknown) SKIN: Warm, dry, (units (unknown) date) no petechiae, no unknown) rashes or lesions. (unknown) (no (unknown) (unknown) Signed By: (units (unk nown) date) unknown) (unknown) (no (unknown) (unknown) Signed (units (unkno wn) date) unknown) (unknown) (no (unknown) (unknown) Sinus rhythm rate (units (unknown) date) 80 6p are 146 QRS unknown) of 106 and QTC of 464. No acute ST (unknown) (no (unknown) (unknown) Smoking Status: (units (unknown) date) Current every day unknown) smoker (unknown) (no (unknown) (unknown) Social History (units (unknown) date) (Reviewed 04/30/22 unknown) @ 19:35 by Emma Stevens DO) (unknown) (no (unknown) (unknown) Sodium (137-145) (units (unknown) date) mmol/L unknown) (unknown) (no (unknown) (unknown) Sodium 138 (units (unk nown) date) (137-145) mmol/L unknown) (unknown) (no (unknown) (unknown) Source: patient, (units (unknown) date) EMS, RN notes unknown) reviewed and old records reviewed (unknown) (no (unknown) (unknown) Stated Complaint: (units (unknown) date) Chest pain unknown) (unknown) (no (unknown) (unknown) Stop: 04/30/22 (units (unknown) date) 19:40 unknown) (unknown) (no (unknown) (unknown) Stop: 05/01/22 (units (unknown) date) 00:36 unknown) (unknown) (no (unknown) (unknown) Substance Use (units ( unknown) date) Type: does not use unknown) (unknown) (no (unknown) (unknown) Surgical History (units (unknown) date) (Reviewed 04/30/22 unknown) @ 19:35 by Emma Stevens DO) (unknown) (no (unknown) (unknown) Surgical changes (units (unknown) date) and devices:? unknown) None.? (unknown) (no (unknown) (unknown) TECHNIQUE:? One (units (unknown) date) view of the chest unknown) was acquired.? (unknown) (no (unknown) (unknown) Telemetry Strips (units (unknown) date) unknown) (unknown) (no (unknown) (unknown) Temperature 98.3 (units (unknown) date) F unknown) (unknown) (no (unknown) (unknown) Temperature (units (un known) date) unknown) (unknown) (no (unknown) (unknown) They do recommend (units (unknown) date) taking steroids unknown) for short course to see if this improves her (unknown) (no (unknown) (unknown) This is a (units (unkn own) date) 66-year-old male unknown) who presents with recurrent chest pain similar to (unknown) (no (unknown) (unknown) This is a (units (unkn own) date) 66-year-old male unknown) with complaint of chest, low back pain that radiates (unknown) (no (unknown) (unknown) Time Seen by (units (u nknown) date) Provider: 04/30/22 unknown) 18:56 (unknown) (no (unknown) (unknown) Time: 20:03 (units (un known) date) unknown) (unknown) (no (unknown) (unknown) Time: 22:21 (units (un known) date) unknown) (unknown) (no (unknown) (unknown) Total Bilirubin (units (unknown) date) (0.2-1.3) mg/dL unknown) (unknown) (no (unknown) (unknown) Total Bilirubin (units (unknown) date) 1.1 (0.2-1.3) unknown) mg/dL (unknown) (no (unknown) (unknown) Total Creatine (units (unknown) date) Kinase (55-170) unknown) U/L (unknown) (no (unknown) (unknown) Total Creatine (units (unknown) date) Kinase 44 L unknown) (55-170) U/L (unknown) (no (unknown) (unknown) Total Protein (units ( unknown) date) (6.3-8.2) g/dL unknown) (unknown) (no (unknown) (unknown) Total Protein 6.7 (units (unknown) date) (6.3-8.2) g/dL unknown) (unknown) (no (unknown) (unknown) Trop I [Troponin (units (unknown) date) I] Stat unknown) (unknown) (no (unknown) (unknown) Troponin + CK (units ( unknown) date) Cardiac Panel Stat unknown) (unknown) (no (unknown) (unknown) Troponin I < (units (u nknown) date) 0.012 (0.01-0.034) unknown) ng/mL (unknown) (no (unknown) (unknown) Troponin I (units (unk nown) date) (0.01-0.034) ng/mL unknown) (unknown) (no (unknown) (unknown) Troponin I 0.013 (units (unknown) date) < 0.012 unknown) (0.01-0.034) ng/mL (unknown) (no (unknown) (unknown) UA Complete (units (un known) date) [Urinalysis and unknown) Microscopic] Stat (unknown) (no (unknown) (unknown) Ur Culture (units (unk nown) date) Indicated? Cult unknown) not indicated (unknown) (no (unknown) (unknown) Ur Culture (units (unk nown) date) Indicated? unknown) (unknown) (no (unknown) (unknown) Ur Leukocyte (units (u nknown) date) Esterase unknown) (NEGATIVE) (unknown) (no (unknown) (unknown) Ur Leukocyte (units (u nknown) date) Esterase Negative unknown) (NEGATIVE) (unknown) (no (unknown) (unknown) Ur Specific (units (un known) date) [place] <=1.005 unknown) (1.000-1.035) (unknown) (no (unknown) (unknown) Ur Specific (units (un known) date) [place] unknown) (1.000-1.035) (unknown) (no (unknown) (unknown) Urine Appearance (units (unknown) date) Clear unknown) (unknown) (no (unknown) (unknown) Urine Appearance (units (unknown) date) unknown) (unknown) (no (unknown) (unknown) Urine Bacteria (units (unknown) date) (None) unknown) (unknown) (no (unknown) (unknown) Urine Bacteria (units (unknown) date) None seen (None) unknown) (unknown) (no (unknown) (unknown) Urine Bilirubin (units (unknown) date) (NEGATIVE) unknown) (unknown) (no (unknown) (unknown) Urine Bilirubin (units (unknown) date) Negative unknown) (NEGATIVE) (unknown) (no (unknown) (unknown) Urine Color (units (un known) date) Yellow unknown) (unknown) (no (unknown) (unknown) Urine Color (units (un known) date) unknown) (unknown) (no (unknown) (unknown) Urine Glucose (units ( unknown) date) (UA) (Negative) unknown) g/dL (unknown) (no (unknown) (unknown) Urine Glucose (units ( unknown) date) (UA) 1+ H unknown) (Negative) g/dL (unknown) (no (unknown) (unknown) Urine Ketones (units ( unknown) date) (NEGATIVE) unknown) (unknown) (no (unknown) (unknown) Urine Ketones (units ( unknown) date) Negative unknown) (NEGATIVE) (unknown) (no (unknown) (unknown) Urine Nitrate (units ( unknown) date) (Negative) unknown) (unknown) (no (unknown) (unknown) Urine Nitrate (units ( unknown) date) Negative unknown) (Negative) (unknown) (no (unknown) (unknown) Urine Occult (units (u nknown) date) Blood (Negative) unknown) (unknown) (no (unknown) (unknown) Urine Occult (units (u nknown) date) Blood Negative unknown) (Negative) (unknown) (no (unknown) (unknown) Urine Protein (units ( unknown) date) (Negative) unknown) (unknown) (no (unknown) (unknown) Urine Protein (units ( unknown) date) Negative unknown) (Negative) (unknown) (no (unknown) (unknown) Urine RBC (units (unkn own) date) (0-5/HPF) unknown) (unknown) (no (unknown) (unknown) Urine RBC None (units (unknown) date) seen (0-5/HPF) unknown) (unknown) (no (unknown) (unknown) Urine (units (unkno wn) date) Urobilinogen (0.2) unknown) E.U./dL (unknown) (no (unknown) (unknown) Urine (units (unkno wn) date) Urobilinogen 0.2 unknown) (0.2) E.U./dL (unknown) (no (unknown) (unknown) Urine WBC (units (unkn own) date) (0-5/HPF) unknown) (unknown) (no (unknown) (unknown) Urine WBC None (units (unknown) date) seen (0-5/HPF) unknown) (unknown) (no (unknown) (unknown) Urine pH (units (unkno wn) date) (4.5-8.0) unknown) (unknown) (no (unknown) (unknown) Urine pH 5.5 (units (u nknown) date) (4.5-8.0) unknown) (unknown) (no (unknown) (unknown) V3 V4 V5. (units (unkn own) date) unknown) (unknown) (no (unknown) (unknown) Vital Signs - 8 (units (unknown) date) hr unknown) (unknown) (no (unknown) (unknown) Vital Signs (units (un known) date) unknown) (unknown) (no (unknown) (unknown) Vital signs: (units (u nknown) date) unknown) (unknown) (no (unknown) (unknown) WBC (4.5-11.0) (units (unknown) date) X103/uL unknown) (unknown) (no (unknown) (unknown) WBC 8.6 (units (unkno wn) date) (4.5-11.0) X103/uL unknown) (unknown) (no (unknown) (unknown) XR chest 1V Stat (units (unknown) date) unknown) (unknown) (no (unknown) (unknown) XRay Report (units (un known) date) unknown) (unknown) (no (unknown) (unknown) You can take (units (u nknown) date) Tylenol up to a unknown) 1000 mg every 6 hours as needed for pain. If in (unknown) (no (unknown) (unknown) [Embedded Image (units (unknown) date) Not Available] unknown) (unknown) (no (unknown) (unknown) [normal sphincter (units (unknown) date) tone/decreased unknown) tone/no tone/deferred or refused]. Patient has (unknown) (no (unknown) (unknown) abnormality (units (un known) date) unknown) (unknown) (no (unknown) (unknown) activities or (units ( unknown) date) make any major unknown) decisions while taking it. This medication will (unknown) (no (unknown) (unknown) adequate you can (units (unknown) date) take narcotic pain unknown) medication 1-2 tablets every 6 hours as (unknown) (no (unknown) (unknown) admitted for (units (u nknown) date) atypical chest unknown) pain, low back pain and acute urinary retention and (unknown) (no (unknown) (unknown) alcohol intake: (units (unknown) date) former unknown) (unknown) (no (unknown) (unknown) and below (units (unkn own) date) unknown) (unknown) (no (unknown) (unknown) and negative (units (u nknown) date) range feels unknown) patient is appropriate to discharge from a cardiac (unknown) (no (unknown) (unknown) appropriate for (units (unknown) date) discharge. Also unknown) discussed his MRI findings from March his (unknown) (no (unknown) (unknown) are 2/4 and lower (units (unknown) date) extremities. unknown) Dorsalis pedis and tibialis pulses are 2+ and (unknown) (no (unknown) (unknown) are appropriate (units (unknown) date) for discharge unknown) today. (unknown) (no (unknown) (unknown) aspirin 81 mg (units ( unknown) date) Tablet,Delayed unknown) Release (Dr/Ec) (unknown) (no (unknown) (unknown) aspirin 81 mg (units ( unknown) date) tablet,delayed 81 unknown) mg PO DAILY #9 tabs 10/04/22 (unknown) (no (unknown) (unknown) atorvastatin 40 (units (unknown) date) mg tablet unknown) (Lipitor) 40 mg PO DAILY #90 tabs 03/30/22 (unknown) (no (unknown) (unknown) atorvastatin (units (u nknown) date) [Lipitor] 40 mg unknown) tablet (unknown) (no (unknown) (unknown) back in 1992. No (units (unknown) date) known drug unknown) allergies. He does use tobacco and smokes a (unknown) (no (unknown) (unknown) breath, (units (unkno wn) date) persistent unknown) vomiting, passing out or other new or concerning symptoms (unknown) (no (unknown) (unknown) but a new urinary (units (unknown) date) retention with a L unknown) in his bladder he was discharged home on (unknown) (no (unknown) (unknown) capsule (units (unkno wn) date) unknown) (unknown) (no (unknown) (unknown) changed from (units (u nknown) date) - no ST unknown) elevation. (unknown) (no (unknown) (unknown) changes (units (unkno wn) date) appreciated. No unknown) dynamic changes. Patient has some T-wave inversion in (unknown) (no (unknown) (unknown) changes are seen. (units (unknown) date) ? Overlying soft unknown) tissues appear unremarkable.? (unknown) (no (unknown) (unknown) cough or (units (unkno wn) date) congestion. He unknown) denies any bladder or fecal incontinence. Patient (unknown) (no (unknown) (unknown) current findings (units (unknown) date) today, at this unknown) time he states nonsurgical does not require (unknown) (no (unknown) (unknown) decreased range (units (unknown) date) of motion. Patient unknown) has pain and discomfort particularly in the (unknown) (no (unknown) (unknown) degenerative (units (u nknown) date) unknown) (unknown) (no (unknown) (unknown) difficulty with (units (unknown) date) dorsiflexion on unknown) the left foot. He endorses difficulty with (unknown) (no (unknown) (unknown) does have low back (units (unknown) date) pain which unknown) radiates particularly down his left leg and states (unknown) (no (unknown) (unknown) down his legs. (units (unknown) date) Patient states the unknown) chest pain has been present for the last 4-6 (unknown) (no (unknown) (unknown) elevation. (units (unk nown) date) T-waves are unknown) inverted in lateral leads V3 through V 5 which appears (unknown) (no (unknown) (unknown) emergent (units (unkno wn) date) treatment. He unknown) would recommend oral steroids for pain. From spinal (unknown) (no (unknown) (unknown) established with (units (unknown) date) a primary care. unknown) (unknown) (no (unknown) (unknown) exam does show (units (unknown) date) radicular changes unknown) but is inconsistent throughout exam. Patient (unknown) (no (unknown) (unknown) exam findings (units ( unknown) date) from today and DrAdrian unknown) Porter from orthopedic surgery recommends (unknown) (no (unknown) (unknown) extremities (units (un known) date) unknown) (unknown) (no (unknown) (unknown) fenofibrate (units (un known) date) micronized 134 mg unknown) 134 mg PO DAILY 11/01/20 11/01/20 (unknown) (no (unknown) (unknown) fenofibrate (units (un known) date) micronized 134 mg unknown) capsule (unknown) (no (unknown) (unknown) findings today (units (unknown) date) they would like to unknown) see you in follow-up. (unknown) (no (unknown) (unknown) for narcotic pain (units (unknown) date) medication. Follow unknown) up outpatient. 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 He states it is quite painful he states (unknown) (no (unknown) (unknown) he states it is (units (unknown) date) sort of across his unknown) chest. He denies radiation elsewhere but (unknown) (no (unknown) (unknown) his medications (units (unknown) date) regularly. He unknown) states this feels very similar to his visit in (unknown) (no (unknown) (unknown) hospital. (units (unkn own) date) unknown) (unknown) (no (unknown) (unknown) hours. He states (units (unknown) date) no diaphoresis, no unknown) shortness of breath, no nausea or vomiting (unknown) (no (unknown) (unknown) household (units (unkn own) date) members: unknown) significant other (unknown) (no (unknown) (unknown) identified.? (units (u nknown) date) unknown) (unknown) (no (unknown) (unknown) inability to move (units (unknown) date) her leg, loss of unknown) sensation, worsening chest pain, shortness of (unknown) (no (unknown) (unknown) incomplete (units (unk nown) date) unknown) (unknown) (no (unknown) (unknown) infiltrates are (units (unknown) date) seen.? No unknown) pneumothorax or significant pleural effusions are (unknown) (no (unknown) (unknown) inspiratory result (units (unknown) date) is noted, causing unknown) a crowded appearance to the lung markings.? (unknown) (no (unknown) (unknown) intact (units (unkno wn) date) unknown) (unknown) (no (unknown) (unknown) left lower (units (unk nown) date) abdomen. Patient's unknown) gait is not tested initially. Rectal exam is (unknown) (no (unknown) (unknown) losartan 25 mg (units (unknown) date) tablet 25 mg PO unknown) DAILY #90 tabs 03/30/22 (unknown) (no (unknown) (unknown) losartan 25 mg (units (unknown) date) tablet unknown) (unknown) (no (unknown) (unknown) lower (units (unkno wn) date) extremities. unknown) Sensation is intact in the lower extremities. (unknown) (no (unknown) (unknown) make you (units (unkno wn) date) constipated please unknown) take a stool softener once to twice daily until (unknown) (no (unknown) (unknown) metformin 500 mg (units (unknown) date) tablet 500 mg PO unknown) BID #180 tabs 03/30/22 (unknown) (no (unknown) (unknown) metformin 500 mg (units (unknown) date) tablet unknown) (unknown) (no (unknown) (unknown) metoprolol (units (unk nown) date) succinate 25 mg 25 unknown) mg PO DAILY #90 tabs 03/30/22 (unknown) (no (unknown) (unknown) metoprolol (units (unk nown) date) succinate 25 mg unknown) tablet extended release 24 hr (unknown) (no (unknown) (unknown) moist mucous (units (u nknown) date) membranes unknown) (unknown) (no (unknown) (unknown) movement of the (units (unknown) date) left leg but can unknown) adjust himself in the bed without issue. DTRs (unknown) (no (unknown) (unknown) naproxen sodium (units (unknown) date) 220 mg capsule 220 unknown) mg PO BID 03/28/22 03/28/22 (unknown) (no (unknown) (unknown) naproxen sodium (units (unknown) date) [Aleve] 220 mg unknown) Capsule (unknown) (no (unknown) (unknown) needed. This (units (u nknown) date) medication can unknown) make you sleepy do not drive, perform hazardous (unknown) (no (unknown) (unknown) no other ischemic (units (unknown) date) changes and an EF unknown) of 40%. Unclear if patient has been taking (unknown) (no (unknown) (unknown) or large pleural (units (unknown) date) effusions are unknown) seen.? No focal infiltrates are seen.? An (unknown) (no (unknown) (unknown) oxycodone 10 mg (units (unknown) date) and that was unknown) helpful. States his only surgeries or for his low (unknown) (no (unknown) (unknown) oxycodone 5 mg (units (unknown) date) tablet 5 mg PO Q6H unknown) PRN pain #10 tabs 05/01/22 (unknown) (no (unknown) (unknown) oxycodone 5 mg (units (unknown) date) tablet 5 mg PO unknown) Q8HR PRN Pain. #20 tabs 03/30/22 (unknown) (no (unknown) (unknown) oxycodone 5 mg (units (unknown) date) tablet unknown) (unknown) (no (unknown) (unknown) pantoprazole 40 (units (unknown) date) mg PO BID ##0 unknown) 11/01/20 (unknown) (no (unknown) (unknown) pantoprazole (units (u nknown) date) tablet unknown) (unknown) (no (unknown) (unknown) perspective (units (un known) date) patient can be DC unknown) home and does not require being seen in the (unknown) (no (unknown) (unknown) pneumothorax (units (u nknown) date) unknown) (unknown) (no (unknown) (unknown) prednisone 20 mg (units (unknown) date) tablet 40 mg PO unknown) DAILY #10 tabs 05/01/22 (unknown) (no (unknown) (unknown) prednisone 20 mg (units (unknown) date) tablet unknown) (unknown) (no (unknown) (unknown) quarter to a 3rd (units (unknown) date) pack daily, unknown) occasional alcohol, no illicit. He has not (unknown) (no (unknown) (unknown) release (units (unkno wn) date) unknown) (unknown) (no (unknown) (unknown) seen. ? (units (unkno wn) date) unknown) (unknown) (no (unknown) (unknown) sometimes he has (units (unknown) date) weakness in that unknown) leg but not currently. He denies fevers, cold (unknown) (no (unknown) (unknown) standpoint. (units (un known) date) Review patient's unknown) ST changes today. His myocardial perfusion stress (unknown) (no (unknown) (unknown) states he had (units ( unknown) date) aspirin, nitro unknown) sublingual x3 and morphine EN route with EMS and (unknown) (no (unknown) (unknown) states that he is (units (unknown) date) not any pain unknown) medication for his back but used to be on (unknown) (no (unknown) (unknown) steroids, do (units (u nknown) date) nonnarcotic pain unknown) medication does not have a strong recommendation (unknown) (no (unknown) (unknown) stools are soft (units (unknown) date) and regular. unknown) (unknown) (no (unknown) (unknown) symptoms. (units (unkn own) date) unknown) (unknown) (no (unknown) (unknown) tablet,extended (units (unknown) date) release 24 hr unknown) (unknown) (no (unknown) (unknown) tamsulosin 0.4 mg (units (unknown) date) capsule (Flomax) unknown) 0.4 mg PO BEDTIME #90 caps 03/30/22 (unknown) (no (unknown) (unknown) tamsulosin (units (unk nown) date) [Flomax] 0.4 mg unknown) Capsule (unknown) (no (unknown) (unknown) that he was (units (un known) date) restarted on his unknown) medications unclear if he is taking them daily (unknown) (no (unknown) (unknown) that it changed (units (unknown) date) nothing about his unknown) chest pain or his back pain. States this is (unknown) (no (unknown) (unknown) took it 4 weeks (units (unknown) date) ago. unknown) (unknown) (no (unknown) (unknown) troponin was (units (u nknown) date) repeated no major unknown) change. Discussed with Cardiology, Dr. Caicedo. (unknown) (no (unknown) (unknown) very similar to (units (unknown) date) when he was here unknown) in March and admitted at that time he was (unknown) (no (unknown) (unknown) with EF of 40-55% (units (unknown) date) and a lumbar MRI unknown) which showed no cord compression or stenosis Result panel 606 (unknown) (no (unknown) (unknown) (no value) (units (unk nown) date) unknown) (unknown) (no (unknown) (unknown) <Electronically (units (unknown) date) signed by Emma Chen unknown) Jeffrey Stevens> (unknown) (no (unknown) (unknown) (Aleve) (units (unkno wn) date) unknown) (unknown) (no (unknown) (unknown) 0.4 mg PO BEDTIME (units (unknown) date) Qty: 90 0RF unknown) (unknown) (no (unknown) (unknown) 00:00 (units (unkno wn) date) unknown) (unknown) (no (unknown) (unknown) 00:01 05/01/22 (units (unknown) date) unknown) (unknown) (no (unknown) (unknown) 00:30 05/01/22 (units (unknown) date) unknown) (unknown) (no (unknown) (unknown) 00:30 (units (unkno wn) date) unknown) (unknown) (no (unknown) (unknown) 10/31/20 (units (unkno wn) date) unknown) (unknown) (no (unknown) (unknown) 11/01/20 (units (unkno wn) date) unknown) (unknown) (no (unknown) (unknown) 03/28/22 (units (unkno wn) date) unknown) (unknown) (no (unknown) (unknown) 03/29/22 (units (unkno wn) date) unknown) (unknown) (no (unknown) (unknown) 04/30/22 04/30/22 (units (unknown) date) 04/30/22 unknown) Range/Units (unknown) (no (unknown) (unknown) 04/30/22 04/30/22 (units (unknown) date) Range/Units unknown) (unknown) (no (unknown) (unknown) 04/30/22 19:01 (units (unknown) date) unknown) (unknown) (no (unknown) (unknown) 04/30/22 21:00 (units (unknown) date) unknown) (unknown) (no (unknown) (unknown) 04/30/22 23:30 (units (unknown) date) unknown) (unknown) (no (unknown) (unknown) 04/30/22 23:38 (units (unknown) date) unknown) (unknown) (no (unknown) (unknown) 04/30/22 (units (unkno wn) date) unknown) (unknown) (no (unknown) (unknown) 05/01/22 0527 (units ( unknown) date) unknown) (unknown) (no (unknown) (unknown) 05/01/22 (units (unkno wn) date) unknown) (unknown) (no (unknown) (unknown) [address] [place] [address] (units (unknown) date) unknown) (unknown) (no (unknown) (unknown) 134 mg PO DAILY (units (unknown) date) unknown) (unknown) (no (unknown) (unknown) 19:01 19:01 19:01 (units (unknown) date) unknown) (unknown) (no (unknown) (unknown) 19:01 19:06 19:50 (units (unknown) date) unknown) (unknown) (no (unknown) (unknown) 21:00 23:30 (units (un known) date) unknown) (unknown) (no (unknown) (unknown) 21:30 04/30/22 (units (unknown) date) unknown) (unknown) (no (unknown) (unknown) 220 mg PO BID (units ( unknown) date) unknown) (unknown) (no (unknown) (unknown) 22:00 04/30/22 (units (unknown) date) unknown) (unknown) (no (unknown) (unknown) 22:00 (units (unkno wn) date) unknown) (unknown) (no (unknown) (unknown) 22:30 04/30/22 (units (unknown) date) unknown) (unknown) (no (unknown) (unknown) 22:30 (units (unkno wn) date) unknown) (unknown) (no (unknown) (unknown) 23:00 04/30/22 (units (unknown) date) unknown) (unknown) (no (unknown) (unknown) 23:01.? [place] (units (unknown) date) unknown) (unknown) (no (unknown) (unknown) 23:30 04/30/22 (units (unknown) date) unknown) (unknown) (no (unknown) (unknown) 23:30 (units (unkno wn) date) unknown) (unknown) (no (unknown) (unknown) 23:59 05/01/22 (units (unknown) date) unknown) (unknown) (no (unknown) (unknown) 25 mg PO DAILY (units (unknown) date) Qty: 90 0RF unknown) (unknown) (no (unknown) (unknown) 2847 (units (unkno wn) date) unknown) (unknown) (no (unknown) (unknown) 40 mg PO BID Qty: (units (unknown) date) 0 0RF unknown) (unknown) (no (unknown) (unknown) 40 mg PO DAILY (units (unknown) date) Qty: 10 0RF unknown) (unknown) (no (unknown) (unknown) 40 mg PO DAILY (units (unknown) date) Qty: 90 0RF unknown) (unknown) (no (unknown) (unknown) 5 MG PO Q8HR As (units (unknown) date) Needed for Pain unknown) (unknown) (no (unknown) (unknown) 5 mg PO Q6H PRN (units (unknown) date) (Reason: pain) unknown) Qty: 10 0RF (unknown) (no (unknown) (unknown) 5 mg PO Q8HR PRN (units (unknown) date) (Reason: Pain.) unknown) Qty: 20 0RF (unknown) (no (unknown) (unknown) 500 mg PO BID (units ( unknown) date) Qty: 180 0RF unknown) (unknown) (no (unknown) (unknown) 81 mg PO DAILY (units (unknown) date) Qty: 9 0RF unknown) (unknown) (no (unknown) (unknown) ? (units (unkno wn) date) unknown) (unknown) (no (unknown) (unknown) ABDOMEN: Soft, (units (unknown) date) nontender. unknown) Normoactive bowel sounds all 4 quadrants. No (unknown) (no (unknown) (unknown) ALT (<50) IU/L (units (unknown) date) unknown) (unknown) (no (unknown) (unknown) ALT 42 (<50) IU/L (units (unknown) date) unknown) (unknown) (no (unknown) (unknown) AST (17-59) IU/L (units (unknown) date) unknown) (unknown) (no (unknown) (unknown) AST 49 (17-59) (units (unknown) date) IU/L unknown) (unknown) (no (unknown) (unknown) Abdomen (units (unkno wn) date) Ultrasound unknown) (Signed) (unknown) (no (unknown) (unknown) Abdomen/Pelvis CT (units (unknown) date) (Signed) unknown) (unknown) (no (unknown) (unknown) Accession Number: (units (unknown) date) [id number] ?? unknown) (unknown) (no (unknown) (unknown) Acct:[id number] (units (unknown) date) unknown) (unknown) (no (unknown) (unknown) Activity (units (unkno wn) date) Restrictions/Addit unknown) ional Instructions: (unknown) (no (unknown) (unknown) Age/Sex: 66 / M (units (unknown) date) unknown) (unknown) (no (unknown) (unknown) Albumin (3.5-5.0) (units (unknown) date) g/dL unknown) (unknown) (no (unknown) (unknown) Albumin 3.9 (units (un known) date) (3.5-5.0) g/dL unknown) (unknown) (no (unknown) (unknown) Albumin/Globulin (units (unknown) date) Ratio (1.0-2.8) unknown) (unknown) (no (unknown) (unknown) Albumin/Globulin (units (unknown) date) Ratio 1.4 unknown) (1.0-2.8) (unknown) (no (unknown) (unknown) Alkaline (units (unkno wn) date) Phosphatase unknown) (38-126) U/L (unknown) (no (unknown) (unknown) Alkaline (units (unkno wn) date) Phosphatase 100 unknown) (38-126) U/L (unknown) (no (unknown) (unknown) Allergies (units (unkn own) date) unknown) (unknown) (no (unknown) (unknown) Allergy/AdvReac (units (unknown) date) Type Severity unknown) Reaction Status Date / Time (unknown) (no (unknown) (unknown) AJIT [place] (units ( unknown) date) [id number] unknown) (unknown) (no (unknown) (unknown) Approved by: (units (u nknown) date) jovon Mancuso M.D. on 04/30/2022 at 19:20?? (unknown) (no (unknown) (unknown) Attestation: I (units (unknown) date) personally unknown) reviewed and interpreted this ECG as follows: (unknown) (no (unknown) (unknown) Atypical chest (units (unknown) date) pain, Left lumbar unknown) radiculopathy (unknown) (no (unknown) (unknown) BACK: No (units (unkno wn) date) cervical, thoracic unknown) or lumbar vertebral point tenderness. Patient has (unknown) (no (unknown) (unknown) BUN (9-20) mg/dL (units (unknown) date) unknown) (unknown) (no (unknown) (unknown) BUN 7 L (9-20) (units (unknown) date) mg/dL unknown) (unknown) (no (unknown) (unknown) BUN/Creatinine (units (unknown) date) Ratio (6-22) unknown) (unknown) (no (unknown) (unknown) BUN/Creatinine (units (unknown) date) Ratio 10.6 (6-22) unknown) (unknown) (no (unknown) (unknown) Baso # (Auto) (units ( unknown) date) (0-100) /uL unknown) (unknown) (no (unknown) (unknown) Baso # (Auto) 200 (units (unknown) date) H (0-100) /uL unknown) (unknown) (no (unknown) (unknown) Baso % (Auto) (units ( unknown) date) (0-2) % unknown) (unknown) (no (unknown) (unknown) Baso % (Auto) 2.0 (units (unknown) date) (0-2) % unknown) (unknown) (no (unknown) (unknown) Blood Pressure (units (unknown) date) 108/65 137/72 unknown) (unknown) (no (unknown) (unknown) Blood Pressure (units (unknown) date) 109/60 109/60 unknown) (unknown) (no (unknown) (unknown) Blood Pressure (units (unknown) date) 127/75 unknown) (unknown) (no (unknown) (unknown) Blood Pressure (units (unknown) date) 140/74 unknown) (unknown) (no (unknown) (unknown) Blood Pressure (units (unknown) date) 97/61 unknown) (unknown) (no (unknown) (unknown) Bones and chest (units (unknown) date) wall:? No unknown) suspicious bony lesions.? Age-appropriate bony (unknown) (no (unknown) (unknown) CARDIOVASCULAR: (units (unknown) date) Regular rate and unknown) rhythm without murmurs, rubs or gallops. (unknown) (no (unknown) (unknown) CK-MB (CK-2) Rel (units (unknown) date) Index TNP unknown) (unknown) (no (unknown) (unknown) CK-MB (CK-2) Rel (units (unknown) date) Index unknown) (unknown) (no (unknown) (unknown) CK-MB (CK-2) TNP (units (unknown) date) unknown) (unknown) (no (unknown) (unknown) CK-MB (CK-2) (units (u nknown) date) unknown) (unknown) (no (unknown) (unknown) COMPARISON:? (units (u nknown) date) [facility], unknown) CT, CT ANGIO CHEST PE PROTOCOL, 03/28/2022, (unknown) (no (unknown) (unknown) Calcium (units (unkno wn) date) (8.4-10.2) mg/dL unknown) (unknown) (no (unknown) (unknown) Calcium 8.1 L (units ( unknown) date) (8.4-10.2) mg/dL unknown) (unknown) (no (unknown) (unknown) Call,Michele (units (unk nown) date) unknown) (unknown) (no (unknown) (unknown) Carbon Dioxide (units (unknown) date) (22-32) mmol/L unknown) (unknown) (no (unknown) (unknown) Carbon Dioxide 17 (units (unknown) date) L (22-32) mmol/L unknown) (unknown) (no (unknown) (unknown) Chest CTA (units (unkn own) date) (Signed) unknown) (unknown) (no (unknown) (unknown) Chest X-Ray (units (un known) date) (Signed) unknown) (unknown) (no (unknown) (unknown) Chest x-ray: (units (u nknown) date) unknown) (unknown) (no (unknown) (unknown) Chief Complaint: (units (unknown) date) Chest Pain unknown) (unknown) (no (unknown) (unknown) Chloride (98-107) (units (unknown) date) mmol/L unknown) (unknown) (no (unknown) (unknown) Chloride 104 (units (u nknown) date) (98-107) mmol/L unknown) (unknown) (no (unknown) (unknown) Clinical (units (unkno wn) date) Impression: unknown) (unknown) (no (unknown) (unknown) Close (units (unkno wn) date) unknown) (unknown) (no (unknown) (unknown) Consultation #1: (units (unknown) date) unknown) (unknown) (no (unknown) (unknown) Consultation #2: (units (unknown) date) unknown) (unknown) (no (unknown) (unknown) Consultations (units ( unknown) date) unknown) (unknown) (no (unknown) (unknown) Coronary artery (units (unknown) date) disease unknown) (unknown) (no (unknown) (unknown) Course (units (unkno wn) date) unknown) (unknown) (no (unknown) (unknown) Creatinine (units (unk nown) date) (0.66-1.25) mg/dL unknown) (unknown) (no (unknown) (unknown) Creatinine 0.66 (units (unknown) date) (0.66-1.25) mg/dL unknown) (unknown) (no (unknown) (unknown) : 1955 (units (unknown) date) Acct:[id number] unknown) (unknown) (no (unknown) (unknown) : 1955 (units (unknown) date) unknown) (unknown) (no (unknown) (unknown) Date of Service: (units (unknown) date) 04/30/22 unknown) (unknown) (no (unknown) (unknown) Departure (units (unkn own) date) unknown) (unknown) (no (unknown) (unknown) Diabetes type 2, (units (unknown) date) uncontrolled unknown) (unknown) (no (unknown) (unknown) Dictated by: (units (u nknown) date) jovon Mancuso M.D. on 04/30/2022 at 19:20 ? ? (unknown) (no (unknown) (unknown) Discharge Plan (units (unknown) date) unknown) (unknown) (no (unknown) (unknown) Discontinued (units (u nknown) date) Medications unknown) (unknown) (no (unknown) (unknown) Documented By: (units (unknown) date) [facility] unknown) (unknown) (no (unknown) (unknown) Documented By: (units (unknown) date) JESÚS unknown) (unknown) (no (unknown) (unknown) Chaitanya Hodge (units (u nknown) date) unknown) (unknown) (no (unknown) (unknown) Dr. Caicedo, (units (u nknown) date) cardiology unknown) recommends repeat 4 hour troponin from initial if still (unknown) (no (unknown) (unknown) Dr. John, (units (unkno wn) date) orthopedic unknown) surgery. Reviewed patient's MRI from March 29, 2022 his (unknown) (no (unknown) (unknown) ECG Data (units (unkno wn) date) unknown) (unknown) (no (unknown) (unknown) ED Orders (units (unkn own) date) unknown) (unknown) (no (unknown) (unknown) EKG 2. Sinus (units (u nknown) date) rhythm, rate 80 2p unknown) are 108 QRS of 106 and QTC 446. No acute ST (unknown) (no (unknown) (unknown) EKG-12 Lead Stat (units (unknown) date) unknown) (unknown) (no (unknown) (unknown) ER Physician: (units ( unknown) date) Emma Stevens D.O. unknown) (unknown) (no (unknown) (unknown) EXTREMITIES: (units (u nknown) date) Normal range of unknown) motion, no clubbing or edema. Neurovascularly (unknown) (no (unknown) (unknown) Echocardiogram (units (unknown) date) Ultrasound unknown) (Signed) (unknown) (no (unknown) (unknown) Elevated blood (units (unknown) date) alcohol level unknown) (unknown) (no (unknown) (unknown) Emergency Report (units (unknown) date) unknown) (unknown) (no (unknown) (unknown) Eos # (Auto) (units (u nknown) date) (0-450) /uL unknown) (unknown) (no (unknown) (unknown) Eos # (Auto) 300 (units (unknown) date) (0-450) /uL unknown) (unknown) (no (unknown) (unknown) Eos % (Auto) (units (u nknown) date) (2-4) % unknown) (unknown) (no (unknown) (unknown) Eos % (Auto) 3.5 (units (unknown) date) (2-4) % unknown) (unknown) (no (unknown) (unknown) Estimated GFR > (units (unknown) date) 60 (>60) mL/min unknown) (unknown) (no (unknown) (unknown) Estimated GFR (units ( unknown) date) (>60) mL/min unknown) (unknown) (no (unknown) (unknown) Ethyl Alcohol ( - (units (unknown) date) 10) mg/dL unknown) (unknown) (no (unknown) (unknown) Ethyl Alcohol 133 (units (unknown) date) H ( - 10) mg/dL unknown) (unknown) (no (unknown) (unknown) Exam Narrative: (units (unknown) date) unknown) (unknown) (no (unknown) (unknown) Exam (units (unkno wn) date) unknown) (unknown) (no (unknown) (unknown) FINDINGS:? (units (unk nown) date) unknown) (unknown) (no (unknown) (unknown) Family History (units (unknown) date) (Reviewed 04/30/22 unknown) @ 19:35 by Emma Stevens DO) (unknown) (no (unknown) (unknown) Father (units (unknown) date) Lung cancer unknown) (unknown) (no (unknown) (unknown) Flomax and on his (units (unknown) date) diabetic unknown) medications and heart medications. Patient does note (unknown) (no (unknown) (unknown) GENERAL: Alert (units (unknown) date) and oriented x unknown) three, male in mild distress (unknown) (no (unknown) (unknown) : No CVA (units (unk nown) date) tenderness unknown) (unknown) (no (unknown) (unknown) General (units (unkno wn) date) unknown) (unknown) (no (unknown) (unknown) Globulin (units (unkno wn) date) (1.7-4.1) g/dL unknown) (unknown) (no (unknown) (unknown) Globulin 2.8 (units (u nknown) date) (1.7-4.1) g/dL unknown) (unknown) (no (unknown) (unknown) Glucose (80-110) (units (unknown) date) mg/dL unknown) (unknown) (no (unknown) (unknown) Glucose 206 H (units ( unknown) date) (80-110) mg/dL unknown) (unknown) (no (unknown) (unknown) H/O heart artery (units (unknown) date) stent unknown) (unknown) (no (unknown) (unknown) HEENT: Head (units (un known) date) normocephalic, unknown) atraumatic, EOMI, pupils reactive, face symmetric, (unknown) (no (unknown) (unknown) HPI - Chest Pain (units (unknown) date) unknown) (unknown) (no (unknown) (unknown) HPI narrative: (units (unknown) date) unknown) (unknown) (no (unknown) (unknown) Hct (41-53) % (units ( unknown) date) unknown) (unknown) (no (unknown) (unknown) Hct 44.2 (41-53) (units (unknown) date) % unknown) (unknown) (no (unknown) (unknown) Hgb (13.5-17.5) (units (unknown) date) g/dL unknown) (unknown) (no (unknown) (unknown) Hgb 15.4 (units (unkno wn) date) (13.5-17.5) g/dL unknown) (unknown) (no (unknown) (unknown) History of (units (unk nown) date) Present Illness unknown) (unknown) (no (unknown) (unknown) Home Medications (units (unknown) date) unknown) (unknown) (no (unknown) (unknown) Hospital, CR, XR (units (unknown) date) CHEST 1V, unknown) 03/28/2022, 18:51. 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 (units (u nknown) date) unknown) (unknown) (no (unknown) (unknown) INDICATIONS:? (units ( unknown) date) chest pain unknown) (unknown) (no (unknown) (unknown) Imaging Data (units (u nknown) date) unknown) (unknown) (no (unknown) (unknown) Influenza A (units (un known) date) (RT-PCR) unknown) (NEGATIVE) (unknown) (no (unknown) (unknown) Influenza A (units (un known) date) (RT-PCR) Flu a unknown) negative (NEGATIVE) (unknown) (no (unknown) (unknown) Influenza B (units (un known) date) (RT-PCR) unknown) (NEGATIVE) (unknown) (no (unknown) (unknown) Influenza B (units (un known) date) (RT-PCR) Flu b unknown) negative (NEGATIVE) (unknown) (no (unknown) (unknown) Initial Vital (units ( unknown) date) Signs unknown) (unknown) (no (unknown) (unknown) Initial Vital (units ( unknown) date) Signs: unknown) (unknown) (no (unknown) (unknown) Instructions: DI (units (unknown) date) for Atypical Chest unknown) Pain (unknown) (no (unknown) (unknown) Interpretation: (units (unknown) date) unknown) (unknown) (no (unknown) (unknown) [facility] (units (unknown) date) [address] unknown) [place] [address] (unknown) (no (unknown) (unknown) [facility] (units (unknown) date) unknown) (unknown) (no (unknown) (unknown) Mikael Coyle (units ( unknown) date) unknown) (unknown) (no (unknown) (unknown) Lab Data (units (unkno wn) date) unknown) (unknown) (no (unknown) (unknown) Lab Results (units (un known) date) unknown) (unknown) (no (unknown) (unknown) Label Comments: (units (unknown) date) unknown) (unknown) (no (unknown) (unknown) Labs: (units (unkno wn) date) unknown) (unknown) (no (unknown) (unknown) Last Admin: (units (un known) date) 04/30/22 20:00 unknown) Dose: 10 mg (unknown) (no (unknown) (unknown) Last Admin: (units (un known) date) 05/01/22 00:48 unknown) Dose: 40 mg (unknown) (no (unknown) (unknown) Last Admin: (units (un known) date) 05/01/22 00:49 unknown) Dose: 10 mg (unknown) (no (unknown) (unknown) Launch?Image (units (u nknown) date) unknown) (unknown) (no (unknown) (unknown) Limitations: no (units (unknown) date) limitations unknown) (unknown) (no (unknown) (unknown) Limited portable (units (unknown) date) chest examination, unknown) without a significant cardiopulmonary (unknown) (no (unknown) (unknown) Lipase (23-300) (units (unknown) date) U/L unknown) (unknown) (no (unknown) (unknown) Lipase 381 H (units (u nknown) date) (23-300) U/L unknown) (unknown) (no (unknown) (unknown) Loc: ED (units (unkno wn) date) unknown) (unknown) (no (unknown) (unknown) Lumbar Spine MRI (units (unknown) date) (Cancelled) unknown) (unknown) (no (unknown) (unknown) Lumbar Spine MRI (units (unknown) date) (Signed) unknown) (unknown) (no (unknown) (unknown) Lungs and (units (unkn own) date) pleura:? On this unknown) semiupright portable chest examination, no large (unknown) (no (unknown) (unknown) Lymph # (Auto) (units (unknown) date) (0269-0059) /uL unknown) (unknown) (no (unknown) (unknown) Lymph # (Auto) (units (unknown) date) 2900 (2533-0853) unknown) /uL (unknown) (no (unknown) (unknown) Lymph % (Auto) (units (unknown) date) (25-40) % unknown) (unknown) (no (unknown) (unknown) Lymph % (Auto) (units (unknown) date) 33.9 (25-40) % unknown) (unknown) (no (unknown) (unknown) MCH (26-34) PG (units (unknown) date) unknown) (unknown) (no (unknown) (unknown) MCH 30.3 (26-34) (units (unknown) date) PG unknown) (unknown) (no (unknown) (unknown) MCHC (30-36) % (units (unknown) date) unknown) (unknown) (no (unknown) (unknown) MCHC 34.9 (30-36) (units (unknown) date) % unknown) (unknown) (no (unknown) (unknown) MCV (80-100) fL (units (unknown) date) unknown) (unknown) (no (unknown) (unknown) MCV 86.9 (80-100) (units (unknown) date) fL unknown) (unknown) (no (unknown) (unknown) MDM - Chest Pain (units (unknown) date) unknown) (unknown) (no (unknown) (unknown) MDM Narrative (units ( unknown) date) unknown) (unknown) (no (unknown) (unknown) MR#: [id number] (units (unknown) date) unknown) (unknown) (no (unknown) (unknown) MRI at that time (units (unknown) date) which showed disc unknown) bulge but no stenosis or emergent changes. (unknown) (no (unknown) (unknown) Magnesium (units (unkn own) date) (1.6-2.3) mg/dL unknown) (unknown) (no (unknown) (unknown) Magnesium 1.6 (units ( unknown) date) (1.6-2.3) mg/dL unknown) (unknown) (no (unknown) (unknown) Mediastinum:? (units ( unknown) date) Mediastinal unknown) contours appear normal.? Heart size is normal.? (unknown) (no (unknown) (unknown) Medical History (units (unknown) date) (Reviewed 04/30/22 unknown) @ 19:35 by Emma Stevens DO) (unknown) (no (unknown) (unknown) Medical decision (units (unknown) date) making narrative: unknown) (unknown) (no (unknown) (unknown) Medication (units (unk nown) date) Instructions unknown) Recorded Confirmed (unknown) (no (unknown) (unknown) Medication (units (unk nown) date) Instructions unknown) Recorded (unknown) (no (unknown) (unknown) Radha Dunn (units (unknown) date) unknown) (unknown) (no (unknown) (unknown) Miscellaneous,Doc (units (unknown) date) MD shaggy [Primary unknown) Care Provider] (unknown) (no (unknown) (unknown) Mode of arrival: (units (unknown) date) EMS unknown) (unknown) (no (unknown) (unknown) [place] # (Auto) (units ( unknown) date) (0-900) /uL unknown) (unknown) (no (unknown) (unknown) [place] # (Auto) 800 (units (unknown) date) (0-900) /uL unknown) (unknown) (no (unknown) (unknown) [place] % (Auto) (units ( unknown) date) (3-14) % unknown) (unknown) (no (unknown) (unknown) [place] % (Auto) 8.9 (units (unknown) date) (3-14) % unknown) (unknown) (no (unknown) (unknown) [facility] (units (unknown) date) history unknown unknown) (unknown) (no (unknown) (unknown) Myocardial (units (unk nown) date) Perfusion Scan Nuc unknown) Med (Signed) (unknown) (no (unknown) (unknown) NECK: Supple, (units ( unknown) date) full range of unknown) motion (unknown) (no (unknown) (unknown) NEUROLOGICAL: (units ( unknown) date) Cranial nerves II unknown) through XII grossly intact. Moving all (unknown) (no (unknown) (unknown) NT-Pro-B (units (unkno wn) date) Natriuret Pep unknown) (<125) pg/mL (unknown) (no (unknown) (unknown) NT-Pro-B (units (unkno wn) date) Natriuret Pep 246 unknown) H (<125) pg/mL (unknown) (no (unknown) (unknown) Narrative (units (unkn own) date) unknown) (unknown) (no (unknown) (unknown) Neut # (Auto) (units ( unknown) date) (4611-6301) /uL unknown) (unknown) (no (unknown) (unknown) Neut # (Auto) (units ( unknown) date) 4500 (5142-1609) unknown) /uL (unknown) (no (unknown) (unknown) Neut % (Auto) (units ( unknown) date) (50-75) % unknown) (unknown) (no (unknown) (unknown) Neut % (Auto) (units ( unknown) date) 51.7 (50-75) % unknown) (unknown) (no (unknown) (unknown) New (units (unkno wn) date) unknown) (unknown) (no (unknown) (unknown) No Action (units (unkn own) date) unknown) (unknown) (no (unknown) (unknown) No Known Drug (units ( unknown) date) Allergies Allergy unknown) Verified 10/31/20 23:10 (unknown) (no (unknown) (unknown) No focal (units (unkno wn) date) unknown) (unknown) (no (unknown) (unknown) March as well (units (unknown) date) as low back pain unknown) and radicular symptoms. Patient had an lumbar (unknown) (no (unknown) (unknown) March. EKG does (units (unknown) date) show new ST unknown) depression, initial troponin is negative, patient (unknown) (no (unknown) (unknown) Ordered: (units (unkno wn) date) unknown) (unknown) (no (unknown) (unknown) Ordering (units (unkno wn) date) Provider: unknown) Emma Stevens D.O. (unknown) (no (unknown) (unknown) Orders (units (unkno wn) date) unknown) (unknown) (no (unknown) (unknown) Oxycodone HCl (units ( unknown) date) (Oxycodone Ir 10 unknown) Mg Tablet) 10 mg PO Q6HR PRN (unknown) (no (unknown) (unknown) Oxycodone HCl (units ( unknown) date) (Oxycodone Ir 5 Mg unknown) Tablet) 10 mg PO NOW ONE (unknown) (no (unknown) (unknown) PRN Reason: Pain, (units (unknown) date) Severe (7-10) unknown) (unknown) (no (unknown) (unknown) PROCEDURE:? XR (units (unknown) date) CHEST 1V unknown) (unknown) (no (unknown) (unknown) Patient (units (unkno wn) date) Disposition: Home unknown) (unknown) (no (unknown) (unknown) Patient History (units (unknown) date) unknown) (unknown) (no (unknown) (unknown) Patient had a (units ( unknown) date) repeat troponin 4 unknown) hours from initial if still negative feels (unknown) (no (unknown) (unknown) Patient's did have (units (unknown) date) stress testing at unknown) that time which had a fixed wall defect but (unknown) (no (unknown) (unknown) Patient: (units (unkno wn) date) Frank Chan MR#: unknown) [id number] (unknown) (no (unknown) (unknown) Patient: (units (unkno wn) date) Frank Chan unknown) (unknown) (no (unknown) (unknown) Donavon Fonseca (units (un known) date) unknown) (unknown) (no (unknown) (unknown) Please continue (units (unknown) date) taking the unknown) medications for your heart as prescribed. (unknown) (no (unknown) (unknown) Please return for (units (unknown) date) new or worsening unknown) symptoms loss of bowel or bladder control, (unknown) (no (unknown) (unknown) Plt Count (units (unkn own) date) (150-400) X103/uL unknown) (unknown) (no (unknown) (unknown) Plt Count 159 (units ( unknown) date) (150-400) X103/uL unknown) (unknown) (no (unknown) (unknown) Potassium (units (unkn own) date) (3.4-5.1) mmol/L unknown) (unknown) (no (unknown) (unknown) Potassium 4.2 (units ( unknown) date) (3.4-5.1) mmol/L unknown) (unknown) (no (unknown) (unknown) Prednisone (units (unk nown) date) (Prednisone 20 Mg unknown) Tablet) 40 mg PO NOW ONE (unknown) (no (unknown) (unknown) Prescription sent (units (unknown) date) to [facility] unknown[facility] [place]. (unknown) (no (unknown) (unknown) Prescriptions: (units (unknown) date) unknown) (unknown) (no (unknown) (unknown) Previous Rx's (units ( unknown) date) unknown) (unknown) (no (unknown) (unknown) Procedure: XR (units ( unknown) date) chest 1V unknown) (unknown) (no (unknown) (unknown) Pulse Oximetry 93 (units (unknown) date) 92 unknown) (unknown) (no (unknown) (unknown) Pulse Oximetry 94 (units (unknown) date) 92 unknown) (unknown) (no (unknown) (unknown) Pulse Oximetry 94 (units (unknown) date) 94 unknown) (unknown) (no (unknown) (unknown) Pulse Oximetry 94 (units (unknown) date) unknown) (unknown) (no (unknown) (unknown) Pulse Oximetry 95 (units (unknown) date) 04/30/22 18:59 unknown) (unknown) (no (unknown) (unknown) Pulse Oximetry 95 (units (unknown) date) unknown) (unknown) (no (unknown) (unknown) Pulse Rate 79 (units ( unknown) date) unknown) (unknown) (no (unknown) (unknown) Pulse Rate 81 82 (units (unknown) date) unknown) (unknown) (no (unknown) (unknown) Pulse Rate 81 83 (units (unknown) date) unknown) (unknown) (no (unknown) (unknown) Pulse Rate 81 (units ( unknown) date) unknown) (unknown) (no (unknown) (unknown) Pulse Rate 83 82 (units (unknown) date) unknown) (unknown) (no (unknown) (unknown) Pulse Rate 91 H (units (unknown) date) 04/30/22 18:59 unknown) (unknown) (no (unknown) (unknown) RBC (4.5-5.9) (units ( unknown) date) X106/uL unknown) (unknown) (no (unknown) (unknown) RBC 5.09 (units (unkno wn) date) (4.5-5.9) X106/uL unknown) (unknown) (no (unknown) (unknown) RDW (11.6-14.8) % (units (unknown) date) unknown) (unknown) (no (unknown) (unknown) RDW 13.4 (units (unkno wn) date) (11.6-14.8) % unknown) (unknown) (no (unknown) (unknown) RESPIRATORY: (units (u nknown) date) Breath sounds unknown) equal bilaterally, no wheezes rales or rhonchi. (unknown) (no (unknown) (unknown) ROS Unobtainable: (units (unknown) date) All systems unknown) reviewed + are unremarkable except as noted in HPI (unknown) (no (unknown) (unknown) RSV (PCR) (units (unkn own) date) (Negative) unknown) (unknown) (no (unknown) (unknown) RSV (PCR) (units (unkn own) date) Negative unknown) (Negative) (unknown) (no (unknown) (unknown) Radiologist's (units ( unknown) date) Impression: unknown) (unknown) (no (unknown) (unknown) Referrals: (units (unk nown) date) unknown) (unknown) (no (unknown) (unknown) Related Data (units (u nknown) date) unknown) (unknown) (no (unknown) (unknown) Respiratory Rate (units (unknown) date) 13 13 unknown) (unknown) (no (unknown) (unknown) Respiratory Rate (units (unknown) date) 13 16 unknown) (unknown) (no (unknown) (unknown) Respiratory Rate (units (unknown) date) 13 unknown) (unknown) (no (unknown) (unknown) Respiratory Rate (units (unknown) date) 15 unknown) (unknown) (no (unknown) (unknown) Respiratory Rate (units (unknown) date) 16 15 unknown) (unknown) (no (unknown) (unknown) Respiratory Rate (units (unknown) date) 19 04/30/22 18:59 unknown) (unknown) (no (unknown) (unknown) Result diagrams: (units (unknown) date) unknown) (unknown) (no (unknown) (unknown) Review of Systems (units (unknown) date) unknown) (unknown) (no (unknown) (unknown) Abdulkadir Garcia (units (u nknown) date) unknown) (unknown) (no (unknown) (unknown) SARS-CoV-2 (PCR) (units (unknown) date) (Negative) unknown) (unknown) (no (unknown) (unknown) SARS-CoV-2 (PCR) (units (unknown) date) Negative unknown) (Negative) (unknown) (no (unknown) (unknown) SKIN: Warm, dry, (units (unknown) date) no petechiae, no unknown) rashes or lesions. (unknown) (no (unknown) (unknown) Signed By: (units (unk nown) date) unknown) (unknown) (no (unknown) (unknown) Signed (units (unkno wn) date) unknown) (unknown) (no (unknown) (unknown) Sinus rhythm rate (units (unknown) date) 80 6p are 146 QRS unknown) of 106 and QTC of 464. No acute ST (unknown) (no (unknown) (unknown) Smoking Status: (units (unknown) date) Current every day unknown) smoker (unknown) (no (unknown) (unknown) Social History (units (unknown) date) (Reviewed 04/30/22 unknown) @ 19:35 by Emma Stevens DO) (unknown) (no (unknown) (unknown) Sodium (137-145) (units (unknown) date) mmol/L unknown) (unknown) (no (unknown) (unknown) Sodium 138 (units (unk nown) date) (137-145) mmol/L unknown) (unknown) (no (unknown) (unknown) Source: patient, (units (unknown) date) EMS, RN notes unknown) reviewed and old records reviewed (unknown) (no (unknown) (unknown) Stated Complaint: (units (unknown) date) Chest pain unknown) (unknown) (no (unknown) (unknown) Stop: 04/30/22 (units (unknown) date) 19:40 unknown) (unknown) (no (unknown) (unknown) Stop: 05/01/22 (units (unknown) date) 00:36 unknown) (unknown) (no (unknown) (unknown) Substance Use (units ( unknown) date) Type: does not use unknown) (unknown) (no (unknown) (unknown) Surgical History (units (unknown) date) (Reviewed 04/30/22 unknown) @ 19:35 by Emma Stevens DO) (unknown) (no (unknown) (unknown) Surgical changes (units (unknown) date) and devices:? unknown) None.? (unknown) (no (unknown) (unknown) TECHNIQUE:? One (units (unknown) date) view of the chest unknown) was acquired.? (unknown) (no (unknown) (unknown) Telemetry Strips (units (unknown) date) unknown) (unknown) (no (unknown) (unknown) They do recommend (units (unknown) date) taking steroids unknown) for short course to see if this improves her (unknown) (no (unknown) (unknown) This is a (units (unkn own) date) 66-year-old male unknown) who presents with recurrent chest pain similar to (unknown) (no (unknown) (unknown) This is a (units (unkn own) date) 66-year-old male unknown) with complaint of chest, low back pain that radiates (unknown) (no (unknown) (unknown) Time Seen by (units (u nknown) date) Provider: 04/30/22 unknown) 18:56 (unknown) (no (unknown) (unknown) Time: 20:03 (units (un known) date) unknown) (unknown) (no (unknown) (unknown) Time: 22:21 (units (un known) date) unknown) (unknown) (no (unknown) (unknown) Total Bilirubin (units (unknown) date) (0.2-1.3) mg/dL unknown) (unknown) (no (unknown) (unknown) Total Bilirubin (units (unknown) date) 1.1 (0.2-1.3) unknown) mg/dL (unknown) (no (unknown) (unknown) Total Creatine (units (unknown) date) Kinase (55-170) unknown) U/L (unknown) (no (unknown) (unknown) Total Creatine (units (unknown) date) Kinase 44 L unknown) (55-170) U/L (unknown) (no (unknown) (unknown) Total Protein (units ( unknown) date) (6.3-8.2) g/dL unknown) (unknown) (no (unknown) (unknown) Total Protein 6.7 (units (unknown) date) (6.3-8.2) g/dL unknown) (unknown) (no (unknown) (unknown) Trop I [Troponin (units (unknown) date) I] Stat unknown) (unknown) (no (unknown) (unknown) Troponin I < (units (u nknown) date) 0.012 (0.01-0.034) unknown) ng/mL (unknown) (no (unknown) (unknown) Troponin I (units (unk nown) date) (0.01-0.034) ng/mL unknown) (unknown) (no (unknown) (unknown) Troponin I 0.013 (units (unknown) date) < 0.012 unknown) (0.01-0.034) ng/mL (unknown) (no (unknown) (unknown) Ur Culture (units (unk nown) date) Indicated? Cult unknown) not indicated (unknown) (no (unknown) (unknown) Ur Culture (units (unk nown) date) Indicated? unknown) (unknown) (no (unknown) (unknown) Ur Leukocyte (units (u nknown) date) Esterase unknown) (NEGATIVE) (unknown) (no (unknown) (unknown) Ur Leukocyte (units (u nknown) date) Esterase Negative unknown) (NEGATIVE) (unknown) (no (unknown) (unknown) Ur Specific (units (un known) date) [place] <=1.005 unknown) (1.000-1.035) (unknown) (no (unknown) (unknown) Ur Specific (units (un known) date) [place] unknown) (1.000-1.035) (unknown) (no (unknown) (unknown) Urine Appearance (units (unknown) date) Clear unknown) (unknown) (no (unknown) (unknown) Urine Appearance (units (unknown) date) unknown) (unknown) (no (unknown) (unknown) Urine Bacteria (units (unknown) date) (None) unknown) (unknown) (no (unknown) (unknown) Urine Bacteria (units (unknown) date) None seen (None) unknown) (unknown) (no (unknown) (unknown) Urine Bilirubin (units (unknown) date) (NEGATIVE) unknown) (unknown) (no (unknown) (unknown) Urine Bilirubin (units (unknown) date) Negative unknown) (NEGATIVE) (unknown) (no (unknown) (unknown) Urine Color (units (un known) date) Yellow unknown) (unknown) (no (unknown) (unknown) Urine Color (units (un known) date) unknown) (unknown) (no (unknown) (unknown) Urine Glucose (units ( unknown) date) (UA) (Negative) unknown) g/dL (unknown) (no (unknown) (unknown) Urine Glucose (units ( unknown) date) (UA) 1+ H unknown) (Negative) g/dL (unknown) (no (unknown) (unknown) Urine Ketones (units ( unknown) date) (NEGATIVE) unknown) (unknown) (no (unknown) (unknown) Urine Ketones (units ( unknown) date) Negative unknown) (NEGATIVE) (unknown) (no (unknown) (unknown) Urine Nitrate (units ( unknown) date) (Negative) unknown) (unknown) (no (unknown) (unknown) Urine Nitrate (units ( unknown) date) Negative unknown) (Negative) (unknown) (no (unknown) (unknown) Urine Occult (units (u nknown) date) Blood (Negative) unknown) (unknown) (no (unknown) (unknown) Urine Occult (units (u nknown) date) Blood Negative unknown) (Negative) (unknown) (no (unknown) (unknown) Urine Protein (units ( unknown) date) (Negative) unknown) (unknown) (no (unknown) (unknown) Urine Protein (units ( unknown) date) Negative unknown) (Negative) (unknown) (no (unknown) (unknown) Urine RBC (units (unkn own) date) (0-5/HPF) unknown) (unknown) (no (unknown) (unknown) Urine RBC None (units (unknown) date) seen (0-5/HPF) unknown) (unknown) (no (unknown) (unknown) Urine (units (unkno wn) date) Urobilinogen (0.2) unknown) E.U./dL (unknown) (no (unknown) (unknown) Urine (units (unkno wn) date) Urobilinogen 0.2 unknown) (0.2) E.U./dL (unknown) (no (unknown) (unknown) Urine WBC (units (unkn own) date) (0-5/HPF) unknown) (unknown) (no (unknown) (unknown) Urine WBC None (units (unknown) date) seen (0-5/HPF) unknown) (unknown) (no (unknown) (unknown) Urine pH (units (unkno wn) date) (4.5-8.0) unknown) (unknown) (no (unknown) (unknown) Urine pH 5.5 (units (u nknown) date) (4.5-8.0) unknown) (unknown) (no (unknown) (unknown) V3 V4 V5. (units (unkn own) date) unknown) (unknown) (no (unknown) (unknown) Visit Report (units (u nknown) date) Forms: Patient unknown) Portal/API (unknown) (no (unknown) (unknown) Vital Signs - 8 (units (unknown) date) hr unknown) (unknown) (no (unknown) (unknown) Vital Signs (units (un known) date) unknown) (unknown) (no (unknown) (unknown) Vital signs: (units (u nknown) date) unknown) (unknown) (no (unknown) (unknown) WBC (4.5-11.0) (units (unknown) date) X103/uL unknown) (unknown) (no (unknown) (unknown) WBC 8.6 (units (unkno wn) date) (4.5-11.0) X103/uL unknown) (unknown) (no (unknown) (unknown) XRay Report (units (un known) date) unknown) (unknown) (no (unknown) (unknown) You can take (units (u nknown) date) Tylenol up to a unknown) 1000 mg every 6 hours as needed for pain. If in (unknown) (no (unknown) (unknown) [Embedded Image (units (unknown) date) Not Available] unknown) (unknown) (no (unknown) (unknown) [normal sphincter (units (unknown) date) tone/decreased unknown) tone/no tone/deferred or refused]. Patient has (unknown) (no (unknown) (unknown) abnormality (units (un known) date) unknown) (unknown) (no (unknown) (unknown) activities or (units ( unknown) date) make any major unknown) decisions while taking it. This medication will (unknown) (no (unknown) (unknown) adequate you can (units (unknown) date) take narcotic pain unknown) medication 1-2 tablets every 6 hours as (unknown) (no (unknown) (unknown) admitted for (units (u nknown) date) atypical chest unknown) pain, low back pain and acute urinary retention and (unknown) (no (unknown) (unknown) alcohol intake: (units (unknown) date) former unknown) (unknown) (no (unknown) (unknown) and below (units (unkn own) date) unknown) (unknown) (no (unknown) (unknown) and negative (units (u nknown) date) range feels unknown) patient is appropriate to discharge from a cardiac (unknown) (no (unknown) (unknown) appropriate for (units (unknown) date) discharge. Also unknown) discussed his MRI findings from March his (unknown) (no (unknown) (unknown) are 2/4 and lower (units (unknown) date) extremities. unknown) Dorsalis pedis and tibialis pulses are 2+ and (unknown) (no (unknown) (unknown) are appropriate (units (unknown) date) for discharge unknown) today. (unknown) (no (unknown) (unknown) aspirin 81 mg (units ( unknown) date) Tablet,Delayed unknown) Release (Dr/Ec) (unknown) (no (unknown) (unknown) aspirin 81 mg (units ( unknown) date) tablet,delayed 81 unknown) mg PO DAILY #9 tabs 03/30/22 (unknown) (no (unknown) (unknown) atorvastatin 40 (units (unknown) date) mg tablet unknown) (Lipitor) 40 mg PO DAILY #90 tabs 03/30/22 (unknown) (no (unknown) (unknown) atorvastatin (units (u nknown) date) [Lipitor] 40 mg unknown) tablet (unknown) (no (unknown) (unknown) back in 1992. No (units (unknown) date) known drug unknown) allergies. He does use tobacco and smokes a (unknown) (no (unknown) (unknown) breath, (units (unkno wn) date) persistent unknown) vomiting, passing out or other new or concerning symptoms (unknown) (no (unknown) (unknown) but a new urinary (units (unknown) date) retention with a L unknown) in his bladder he was discharged home on (unknown) (no (unknown) (unknown) capsule (units (unkno wn) date) unknown) (unknown) (no (unknown) (unknown) changed from (units (u nknown) date) - no ST unknown) elevation. (unknown) (no (unknown) (unknown) changes (units (unkno wn) date) appreciated. No unknown) dynamic changes. Patient has some T-wave inversion in (unknown) (no (unknown) (unknown) changes are seen. (units (unknown) date) ? Overlying soft unknown) tissues appear unremarkable.? (unknown) (no (unknown) (unknown) cough or (units (unkno wn) date) congestion. He unknown) denies any bladder or fecal incontinence. Patient (unknown) (no (unknown) (unknown) current findings (units (unknown) date) today, at this unknown) time he states nonsurgical does not require (unknown) (no (unknown) (unknown) decreased range (units (unknown) date) of motion. Patient unknown) has pain and discomfort particularly in the (unknown) (no (unknown) (unknown) degenerative (units (u nknown) date) unknown) (unknown) (no (unknown) (unknown) difficulty with (units (unknown) date) dorsiflexion on unknown) the left foot. He endorses difficulty with (unknown) (no (unknown) (unknown) does have low back (units (unknown) date) pain which unknown) radiates particularly down his left leg and states (unknown) (no (unknown) (unknown) down his legs. (units (unknown) date) Patient states the unknown) chest pain has been present for the last 4-6 (unknown) (no (unknown) (unknown) ds, do (units (unkno wn) date) nonnarcotic pain unknown) medication does not have a strong recommendation for (unknown) (no (unknown) (unknown) elevation. (units (unk nown) date) T-waves are unknown) inverted in lateral leads V3 through V 5 which appears (unknown) (no (unknown) (unknown) emergent (units (unkno wn) date) treatment. He unknown) would recommend oral steroids for pain. From spinal (unknown) (no (unknown) (unknown) established with (units (unknown) date) a primary care. unknown) (unknown) (no (unknown) (unknown) exam does show (units (unknown) date) radicular changes unknown) but is inconsistent throughout exam. Patient (unknown) (no (unknown) (unknown) exam findings (units ( unknown) date) from today and DrAdrian unknown) Porter from orthopedic surgery recommends steroi (unknown) (no (unknown) (unknown) extremities (units (un known) date) unknown) (unknown) (no (unknown) (unknown) fenofibrate (units (un known) date) micronized 134 mg unknown) 134 mg PO DAILY 11/01/20 11/01/20 (unknown) (no (unknown) (unknown) fenofibrate (units (un known) date) micronized 134 mg unknown) capsule (unknown) (no (unknown) (unknown) findings today (units (unknown) date) they would like to unknown) see you in follow-up. 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 He states it is quite painful he states (unknown) (no (unknown) (unknown) he states it is (units (unknown) date) sort of across his unknown) chest. He denies radiation elsewhere but (unknown) (no (unknown) (unknown) his medications (units (unknown) date) regularly. He unknown) states this feels very similar to his visit in (unknown) (no (unknown) (unknown) hospital. (units (unkn own) date) unknown) (unknown) (no (unknown) (unknown) hours. He states (units (unknown) date) no diaphoresis, no unknown) shortness of breath, no nausea or vomiting (unknown) (no (unknown) (unknown) household (units (unkn own) date) members: unknown) significant other (unknown) (no (unknown) (unknown) identified.? (units (u nknown) date) unknown) (unknown) (no (unknown) (unknown) inability to move (units (unknown) date) her leg, loss of unknown) sensation, worsening chest pain, shortness of (unknown) (no (unknown) (unknown) incomplete (units (unk nown) date) unknown) (unknown) (no (unknown) (unknown) infiltrates are (units (unknown) date) seen.? No unknown) pneumothorax or significant pleural effusions are (unknown) (no (unknown) (unknown) inspiratory result (units (unknown) date) is noted, causing unknown) a crowded appearance to the lung markings.? (unknown) (no (unknown) (unknown) intact (units (unkno wn) date) unknown) (unknown) (no (unknown) (unknown) left lower (units (unk nown) date) abdomen. Patient's unknown) gait is not tested initially. Rectal exam is (unknown) (no (unknown) (unknown) losartan 25 mg (units (unknown) date) tablet 25 mg PO unknown) DAILY #90 tabs 03/30/22 (unknown) (no (unknown) (unknown) losartan 25 mg (units (unknown) date) tablet unknown) (unknown) (no (unknown) (unknown) lower (units (unkno wn) date) extremities. unknown) Sensation is intact in the lower extremities. (unknown) (no (unknown) (unknown) make you (units (unkno wn) date) constipated please unknown) take a stool softener once to twice daily until (unknown) (no (unknown) (unknown) metformin 500 mg (units (unknown) date) tablet 500 mg PO unknown) BID #180 tabs 03/30/22 (unknown) (no (unknown) (unknown) metformin 500 mg (units (unknown) date) tablet unknown) (unknown) (no (unknown) (unknown) metoprolol (units (unk nown) date) succinate 25 mg 25 unknown) mg PO DAILY #90 tabs 03/30/22 (unknown) (no (unknown) (unknown) metoprolol (units (unk nown) date) succinate 25 mg unknown) tablet extended release 24 hr (unknown) (no (unknown) (unknown) moist mucous (units (u nknown) date) membranes unknown) (unknown) (no (unknown) (unknown) movement of the (units (unknown) date) left leg but can unknown) adjust himself in the bed without issue. DTRs (unknown) (no (unknown) (unknown) naproxen sodium (units (unknown) date) 220 mg capsule 220 unknown) mg PO BID 03/28/22 03/28/22 (unknown) (no (unknown) (unknown) naproxen sodium (units (unknown) date) [Aleve] 220 mg unknown) Capsule (unknown) (no (unknown) (unknown) narcotic pain (units ( unknown) date) medication. Follow unknown) up outpatient. Patient able to ambulate (unknown) (no (unknown) (unknown) needed. This (units (u nknown) date) medication can unknown) make you sleepy do not drive, perform hazardous (unknown) (no (unknown) (unknown) no other ischemic (units (unknown) date) changes and an EF unknown) of 40%. Unclear if patient has been taking (unknown) (no (unknown) (unknown) or large pleural (units (unknown) date) effusions are unknown) seen.? No focal infiltrates are seen.? An (unknown) (no (unknown) (unknown) oxycodone 10 mg (units (unknown) date) and that was unknown) helpful. States his only surgeries or for his low (unknown) (no (unknown) (unknown) oxycodone 5 mg (units (unknown) date) tablet 5 mg PO Q6H unknown) PRN pain #10 tabs 05/01/22 (unknown) (no (unknown) (unknown) oxycodone 5 mg (units (unknown) date) tablet 5 mg PO unknown) Q8HR PRN Pain. #20 tabs 03/30/22 (unknown) (no (unknown) (unknown) oxycodone 5 mg (units (unknown) date) tablet unknown) (unknown) (no (unknown) (unknown) pantoprazole 40 (units (unknown) date) mg PO BID ##0 unknown) 11/01/20 (unknown) (no (unknown) (unknown) pantoprazole (units (u nknown) date) tablet unknown) (unknown) (no (unknown) (unknown) perspective (units (un known) date) patient can be DC unknown) home and does not require being seen in the (unknown) (no (unknown) (unknown) pneumothorax (units (u nknown) date) unknown) (unknown) (no (unknown) (unknown) prednisone 20 mg (units (unknown) date) tablet 40 mg PO unknown) DAILY #10 tabs 05/01/22 (unknown) (no (unknown) (unknown) prednisone 20 mg (units (unknown) date) tablet unknown) (unknown) (no (unknown) (unknown) quarter to a 3rd (units (unknown) date) pack daily, unknown) occasional alcohol, no illicit. He has not (unknown) (no (unknown) (unknown) release (units (unkno wn) date) unknown) (unknown) (no (unknown) (unknown) seen. ? (units (unkno wn) date) unknown) (unknown) (no (unknown) (unknown) sometimes he has (units (unknown) date) weakness in that unknown) leg but not currently. He denies fevers, cold (unknown) (no (unknown) (unknown) standpoint. (units (un known) date) Review patient's unknown) ST changes today. His myocardial perfusion stress (unknown) (no (unknown) (unknown) states he had (units ( unknown) date) aspirin, nitro unknown) sublingual x3 and morphine EN route with EMS and (unknown) (no (unknown) (unknown) states that he is (units (unknown) date) not any pain unknown) medication for his back but used to be on (unknown) (no (unknown) (unknown) stools are soft (units (unknown) date) and regular. unknown) (unknown) (no (unknown) (unknown) symptoms. (units (unkn own) date) unknown) (unknown) (no (unknown) (unknown) tablet,extended (units (unknown) date) release 24 hr unknown) (unknown) (no (unknown) (unknown) tamsulosin 0.4 mg (units (unknown) date) capsule (Flomax) unknown) 0.4 mg PO BEDTIME #90 caps 03/30/22 (unknown) (no (unknown) (unknown) tamsulosin (units (unk nown) date) [Flomax] 0.4 mg unknown) Capsule (unknown) (no (unknown) (unknown) that he was (units (un known) date) restarted on his unknown) medications unclear if he is taking them daily (unknown) (no (unknown) (unknown) that it changed (units (unknown) date) nothing about his unknown) chest pain or his back pain. States this is (unknown) (no (unknown) (unknown) took it 4 weeks (units (unknown) date) ago. unknown) (unknown) (no (unknown) (unknown) troponin was (units (u nknown) date) repeated no major unknown) change. Discussed with Cardiology, Dr. Caicedo. (unknown) (no (unknown) (unknown) very similar to (units (unknown) date) when he was here unknown) in March and admitted at that time he was (unknown) (no (unknown) (unknown) with EF of 40-55% (units (unknown) date) and a lumbar MRI unknown) which showed no cord compression or stenosis (unknown) (no (unknown) (unknown) without issue. He (units (unknown) date) is feeling better unknown) prior to discharge. Result panel 607 (unknown) (no (unknown) (unknown) (no value) (units (unk nown) date) unknown) (unknown) (no (unknown) (unknown) 1. No acute (units (un known) date) cardiopulmonary unknown) disease. (unknown) (no (unknown) (unknown) 05/28/22 (units (unkno wn) date) unknown) (unknown) (no (unknown) (unknown) [address] [place] [address] (units (unknown) date) unknown) (unknown) (no (unknown) (unknown) [id number] (units (unkno wn) date) unknown) (unknown) (no (unknown) (unknown) Accession Number: (units (unknown) date) [id number] unknown) (unknown) (no (unknown) (unknown) Age/Sex: 66 / M (units (unknown) date) Date of Service: unknown) (unknown) (no (unknown) (unknown) [place], [place] (units ( unknown) date) [id number] unknown) (unknown) (no (unknown) (unknown) Approved by: (units (u nknown) date) Doanvon Fonseca, unknown) Gina on 05/29/2022 at 0:31 (unknown) (no (unknown) (unknown) Bones and chest (units (unknown) date) wall: No unknown) suspicious bony lesions. Overlying soft tissues (unknown) (no (unknown) (unknown) COMPARISON: (units (un known) date) [facility], unknown) CR, XR CHEST 1V, 04/30/2022, 19:18. (unknown) (no (unknown) (unknown) : 1955 (units (unknown) date) Acct:[id number] unknown) (unknown) (no (unknown) (unknown) Dictated by: (units (u nknown) date) Donavon Fonseca, unknown) Gina on 05/29/2022 at 0:31 (unknown) (no (unknown) (unknown) FINDINGS: (units (unkn own) date) unknown) (unknown) (no (unknown) (unknown) IMPRESSION: (units (un known) date) unknown) (unknown) (no (unknown) (unknown) INDICATIONS: (units (u nknown) date) chest pain unknown) (unknown) (no (unknown) (unknown) [facility] (units (unknown) date) unknown) (unknown) (no (unknown) (unknown) Loc: ED (units (unkno wn) date) unknown) (unknown) (no (unknown) (unknown) Lungs and pleura: (units (unknown) date) Lungs are clear. unknown) No pleural effusions or pneumothorax. (unknown) (no (unknown) (unknown) Mediastinum: (units (u nknown) date) Mediastinal unknown) contours appear normal. Heart size is normal. (unknown) (no (unknown) (unknown) Ordering (units (unkno wn) date) Provider: unknown) Pat Vega D.O. (unknown) (no (unknown) (unknown) PROCEDURE: XR (units ( unknown) date) CHEST 1V unknown) (unknown) (no (unknown) (unknown) Patient: (units (unkno wn) date) Frank Chan MR#: unknown) [id number] (unknown) (no (unknown) (unknown) Procedure: XR (units ( unknown) date) chest 1V unknown) (unknown) (no (unknown) (unknown) Signed (units (unkno wn) date) unknown) (unknown) (no (unknown) (unknown) Surgical changes (units (unknown) date) and devices: None. unknown) (unknown) (no (unknown) (unknown) TECHNIQUE: One (units (unknown) date) view of the chest unknown) was acquired. (unknown) (no (unknown) (unknown) XRay Report (units (un known) date) unknown) (unknown) (no (unknown) (unknown) appear (units (unkno wn) date) unknown) (unknown) (no (unknown) (unknown) unremarkable. (units ( unknown) date) unknown) Result panel 608 (unknown) (no date) (unknown) (unknown) 0 /ul (unkn own) (unknown) (no date) (unknown) (unknown) 0.7 % (unkn own) (unknown) (no date) (unknown) (unknown) 13.5 % (unkn own) (unknown) (no date) (unknown) (unknown) 137 x10 3/ul (unkn own) (unknown) (no date) (unknown) (unknown) 14.8 g/dl (unkn own) (unknown) (no date) (unknown) (unknown) 2.5 % (unkn own) (unknown) (no date) (unknown) (unknown) 200 /ul (unkn own) (unknown) (no date) (unknown) (unknown) 2400 /ul (unkn own) (unknown) (no date) (unknown) (unknown) 29.6 pg (unkn own) (unknown) (no date) (unknown) (unknown) 31.4 % (unkn own) (unknown) (no date) (unknown) (unknown) 33.6 % (unkn own) (unknown) (no date) (unknown) (unknown) 43.9 % (unkn own) (unknown) (no date) (unknown) (unknown) 4300 /ul (unkn own) (unknown) (no date) (unknown) (unknown) 5.00 x10 6/ul (unkn own) (unknown) (no date) (unknown) (unknown) 57.1 % (unkn own) (unknown) (no date) (unknown) (unknown) 600 /ul (unkn own) (unknown) (no date) (unknown) (unknown) 7.6 x10 3/ul (unkn own) (unknown) (no date) (unknown) (unknown) 8.3 % (unkn own) (unknown) (no date) (unknown) (unknown) 87.8 fl (unkn own) Result panel 609 (unknown) (no (unknown) (unknown) (no value) (units (unk nown) date) unknown) (unknown) (no (unknown) (unknown) (Aleve) (units (unkno wn) date) unknown) (unknown) (no (unknown) (unknown) 0.4 mg PO (units (unkn own) date) BEDTIME Qty: 90 unknown) 0RF (unknown) (no (unknown) (unknown) 05/28/22 23:15 (units (unknown) date) unknown) (unknown) (no (unknown) (unknown) 05/28/22 23:27 (units (unknown) date) unknown) (unknown) (no (unknown) (unknown) 05/28/22 (units (unkno wn) date) Range/Units unknown) (unknown) (no (unknown) (unknown) 05/28/22 (units (unkno wn) date) unknown) (unknown) (no (unknown) (unknown) 134 mg PO DAILY (units (unknown) date) unknown) (unknown) (no (unknown) (unknown) 220 mg PO BID (units ( unknown) date) unknown) (unknown) (no (unknown) (unknown) 23:06 (units (unkno wn) date) unknown) (unknown) (no (unknown) (unknown) 23:27 (units (unkno wn) date) unknown) (unknown) (no (unknown) (unknown) 25 mg PO DAILY (units (unknown) date) Qty: 90 0RF unknown) (unknown) (no (unknown) (unknown) 2847 (units (unkno wn) date) unknown) (unknown) (no (unknown) (unknown) 40 mg PO BID (units (u nknown) date) Qty: 0 0RF unknown) (unknown) (no (unknown) (unknown) 40 mg PO DAILY (units (unknown) date) Qty: 10 0RF unknown) (unknown) (no (unknown) (unknown) 40 mg PO DAILY (units (unknown) date) Qty: 90 0RF unknown) (unknown) (no (unknown) (unknown) 5 MG PO Q8HR As (units (unknown) date) Needed for Pain unknown) (unknown) (no (unknown) (unknown) 5 mg PO Q6H PRN (units (unknown) date) (Reason: pain) unknown) Qty: 10 0RF (unknown) (no (unknown) (unknown) 5 mg PO Q8HR PRN (units (unknown) date) (Reason: Pain.) unknown) Qty: 20 0RF (unknown) (no (unknown) (unknown) 500 mg PO BID (units ( unknown) date) Qty: 180 0RF unknown) (unknown) (no (unknown) (unknown) 81 mg PO DAILY (units (unknown) date) Qty: 9 0RF unknown) (unknown) (no (unknown) (unknown) Age/Sex: 66 / M (units (unknown) date) unknown) (unknown) (no (unknown) (unknown) Allergies (units (unkn own) date) unknown) (unknown) (no (unknown) (unknown) Allergy/AdvReac (units (unknown) date) Type Severity unknown) Reaction Status Date / Time (unknown) (no (unknown) (unknown) Baso # (Auto) 0 (units (unknown) date) (0-100) /uL unknown) (unknown) (no (unknown) (unknown) Baso % (Auto) (units ( unknown) date) 0.7 (0-2) % unknown) (unknown) (no (unknown) (unknown) Blood Pressure (units (unknown) date) 105/58 L 05/28/22 unknown) 23:06 (unknown) (no (unknown) (unknown) Blood Pressure (units (unknown) date) 105/58 L unknown) (unknown) (no (unknown) (unknown) COVID19 -Nasal (units (unknown) date) RAPID/Pre-Proc unknown) Stat (unknown) (no (unknown) (unknown) Chief Complaint: (units (unknown) date) Chest Pain unknown) (unknown) (no (unknown) (unknown) Complete Blood (units (unknown) date) Count AUTO DIFF unknown) Stat (unknown) (no (unknown) (unknown) Comprehensive (units ( unknown) date) Metabolic Panel unknown) Stat (unknown) (no (unknown) (unknown) Coronary artery (units (unknown) date) disease unknown) (unknown) (no (unknown) (unknown) Course (units (unkno wn) date) unknown) (unknown) (no (unknown) (unknown) : 1955 (units (unknown) date) Acct:[id number] unknown) (unknown) (no (unknown) (unknown) Date of Service: (units (unknown) date) 05/28/22 unknown) (unknown) (no (unknown) (unknown) Departure (units (unkn own) date) unknown) (unknown) (no (unknown) (unknown) Diabetes type 2, (units (unknown) date) uncontrolled unknown) (unknown) (no (unknown) (unknown) Discharge Plan (units (unknown) date) unknown) (unknown) (no (unknown) (unknown) ED Orders (units (unkn own) date) unknown) (unknown) (no (unknown) (unknown) EKG-12 Lead Stat (units (unknown) date) unknown) (unknown) (no (unknown) (unknown) ER Physician: (units ( unknown) date) Pat Vega unknown) D.O. (unknown) (no (unknown) (unknown) Elevated blood (units (unknown) date) alcohol level unknown) (unknown) (no (unknown) (unknown) Emergency Report (units (unknown) date) unknown) (unknown) (no (unknown) (unknown) Eos # (Auto) 200 (units (unknown) date) (0-450) /uL unknown) (unknown) (no (unknown) (unknown) Eos % (Auto) 2.5 (units (unknown) date) (2-4) % unknown) (unknown) (no (unknown) (unknown) Exam (units (unkno wn) date) unknown) (unknown) (no (unknown) (unknown) Family History (units (unknown) date) (Reviewed unknown) 04/30/22 @ 19:35 by Emma Stevens DO) (unknown) (no (unknown) (unknown) Father (units (unknown) date) Lung cancer unknown) (unknown) (no (unknown) (unknown) General (units (unkno wn) date) unknown) (unknown) (no (unknown) (unknown) H/O heart artery (units (unknown) date) stent unknown) (unknown) (no (unknown) (unknown) HPI - Chest Pain (units (unknown) date) unknown) (unknown) (no (unknown) (unknown) Hct 43.9 (41-53) (units (unknown) date) % unknown) (unknown) (no (unknown) (unknown) Hgb 14.8 (units (unkno wn) date) (13.5-17.5) g/dL unknown) (unknown) (no (unknown) (unknown) Home Medications (units (unknown) date) unknown) (unknown) (no (unknown) (unknown) Initial Vital (units ( unknown) date) Signs unknown) (unknown) (no (unknown) (unknown) Initial Vital (units ( unknown) date) Signs: unknown) (unknown) (no (unknown) (unknown) [facility] (units (unknown) date) [address] [place] [address] unknown) [place] [address] (unknown) (no (unknown) (unknown) Lab Data (units (unkno wn) date) unknown) (unknown) (no (unknown) (unknown) Lab Results (units (un known) date) unknown) (unknown) (no (unknown) (unknown) Label Comments: (units (unknown) date) unknown) (unknown) (no (unknown) (unknown) Labs: (units (unkno wn) date) unknown) (unknown) (no (unknown) (unknown) Lipase Stat (units (un known) date) unknown) (unknown) (no (unknown) (unknown) Lymph # (Auto) (units (unknown) date) 2400 (3768-1425) unknown) /uL (unknown) (no (unknown) (unknown) Lymph % (Auto) (units (unknown) date) 31.4 (25-40) % unknown) (unknown) (no (unknown) (unknown) MCH 29.6 (26-34) (units (unknown) date) PG unknown) (unknown) (no (unknown) (unknown) MCHC 33.6 (units (unkn own) date) (30-36) % unknown) (unknown) (no (unknown) (unknown) MCV 87.8 (units (unkno wn) date) (80-100) fL unknown) (unknown) (no (unknown) (unknown) MDM - Chest Pain (units (unknown) date) unknown) (unknown) (no (unknown) (unknown) Magnesium Stat (units (unknown) date) unknown) (unknown) (no (unknown) (unknown) Medical History (units (unknown) date) (Reviewed unknown) 04/30/22 @ 19:35 by Emma Stevens DO) (unknown) (no (unknown) (unknown) Medication (units (unk nown) date) Instructions unknown) Recorded Confirmed (unknown) (no (unknown) (unknown) Medication (units (unk nown) date) Instructions unknown) Recorded (unknown) (no (unknown) (unknown) Miscellaneous,Do (units (unknown) date) MD gee [Primary unknown) Care Provider] (unknown) (no (unknown) (unknown) Mode of arrival: (units (unknown) date) EMS unknown) (unknown) (no (unknown) (unknown) [place] # (Auto) (units ( unknown) date) 600 (0-900) /uL unknown) (unknown) (no (unknown) (unknown) [place] % (Auto) (units ( unknown) date) 8.3 (3-14) % unknown) (unknown) (no (unknown) (unknown) Mother Medical (units (unknown) date) history unknown unknown) (unknown) (no (unknown) (unknown) Neut # (Auto) (units ( unknown) date) 4300 (9819-1442) unknown) /uL (unknown) (no (unknown) (unknown) Neut % (Auto) (units ( unknown) date) 57.1 (50-75) % unknown) (unknown) (no (unknown) (unknown) No Action (units (unkn own) date) unknown) (unknown) (no (unknown) (unknown) No Known Drug (units ( unknown) date) Allergies Allergy unknown) Verified 10/31/20 23:10 (unknown) (no (unknown) (unknown) Ordered: (units (unkno wn) date) unknown) (unknown) (no (unknown) (unknown) Orders (units (unkno wn) date) unknown) (unknown) (no (unknown) (unknown) Oxygen Delivery (units (unknown) date) Method 05/28/22 unknown) 23:06 (unknown) (no (unknown) (unknown) Oxygen Delivery (units (unknown) date) Method Room Air unknown) (unknown) (no (unknown) (unknown) Partial (units (unkno wn) date) Thromboplastin unknown) Time Stat (unknown) (no (unknown) (unknown) Patient History (units (unknown) date) unknown) (unknown) (no (unknown) (unknown) Patient: (units (unkno wn) date) Ren Chantvan MR#: unknown) [id number] (unknown) (no (unknown) (unknown) Plt Count 137 L (units (unknown) date) (150-400) X103/uL unknown) (unknown) (no (unknown) (unknown) Prescriptions: (units (unknown) date) unknown) (unknown) (no (unknown) (unknown) Previous Rx's (units ( unknown) date) unknown) (unknown) (no (unknown) (unknown) Prothrombin Time (units (unknown) date) INR Stat unknown) (unknown) (no (unknown) (unknown) Pulse Oximetry (units (unknown) date) 95 05/28/22 23:06 unknown) (unknown) (no (unknown) (unknown) Pulse Oximetry (units (unknown) date) 95 unknown) (unknown) (no (unknown) (unknown) Pulse Rate 75 (units ( unknown) date) 05/28/22 23:06 unknown) (unknown) (no (unknown) (unknown) Pulse Rate 75 (units ( unknown) date) unknown) (unknown) (no (unknown) (unknown) RBC 5.00 (units (unkno wn) date) (4.5-5.9) X106/uL unknown) (unknown) (no (unknown) (unknown) RDW 13.5 (units (unkno wn) date) (11.6-14.8) % unknown) (unknown) (no (unknown) (unknown) Referrals: (units (unk nown) date) unknown) (unknown) (no (unknown) (unknown) Related Data (units (u nknown) date) unknown) (unknown) (no (unknown) (unknown) Respiratory Rate (units (unknown) date) 16 05/28/22 23:06 unknown) (unknown) (no (unknown) (unknown) Respiratory Rate (units (unknown) date) 16 unknown) (unknown) (no (unknown) (unknown) Result diagrams: (units (unknown) date) unknown) (unknown) (no (unknown) (unknown) Signed By: (units (unk nown) date) unknown) (unknown) (no (unknown) (unknown) Smoking Status: (units (unknown) date) Current every day unknown) smoker (unknown) (no (unknown) (unknown) Social History (units (unknown) date) (Reviewed unknown) 04/30/22 @ 19:35 by Emma Stevens DO) (unknown) (no (unknown) (unknown) Source: EMS (units (un known) date) unknown) (unknown) (no (unknown) (unknown) Stated (units (unkno wn) date) Complaint: chest unknown) pain (unknown) (no (unknown) (unknown) Substance Use (units ( unknown) date) Type: does not unknown) use (unknown) (no (unknown) (unknown) Surgical History (units (unknown) date) (Reviewed unknown) 04/30/22 @ 19:35 by Emma Stevens DO) (unknown) (no (unknown) (unknown) Temperature 98.8 (units (unknown) date) F 05/28/22 23:06 unknown) (unknown) (no (unknown) (unknown) Temperature 98.8 (units (unknown) date) F unknown) (unknown) (no (unknown) (unknown) Time Seen by (units (u nknown) date) Provider: unknown) 05/28/22 23:39 (unknown) (no (unknown) (unknown) Troponin + CK (units ( unknown) date) Cardiac Panel unknown) Stat (unknown) (no (unknown) (unknown) Vital Signs - 8 (units (unknown) date) hr unknown) (unknown) (no (unknown) (unknown) Vital Signs (units (un known) date) unknown) (unknown) (no (unknown) (unknown) Vital signs: (units (u nknown) date) unknown) (unknown) (no (unknown) (unknown) WBC 7.6 (units (unkno wn) date) (4.5-11.0) unknown) X103/uL (unknown) (no (unknown) (unknown) XR chest 1V Stat (units (unknown) date) unknown) (unknown) (no (unknown) (unknown) [Embedded Image (units (unknown) date) Not Available] unknown) (unknown) (no (unknown) (unknown) alcohol intake (units (unknown) date) frequency: 0-2 unknown) drinks per day (unknown) (no (unknown) (unknown) alcohol intake: (units (unknown) date) former unknown) (unknown) (no (unknown) (unknown) aspirin 81 mg (units ( unknown) date) Tablet,Delayed unknown) Release (Dr/Ec) (unknown) (no (unknown) (unknown) aspirin 81 mg (units ( unknown) date) tablet,delayed 81 unknown) mg PO DAILY #9 tabs 03/30/22 (unknown) (no (unknown) (unknown) atorvastatin 40 (units (unknown) date) mg tablet unknown) (Lipitor) 40 mg PO DAILY #90 tabs 03/30/22 (unknown) (no (unknown) (unknown) atorvastatin (units (u nknown) date) [Lipitor] 40 mg unknown) tablet (unknown) (no (unknown) (unknown) capsule (units (unkno wn) date) unknown) (unknown) (no (unknown) (unknown) fenofibrate (units (un known) date) micronized 134 mg unknown) 134 mg PO DAILY 11/01/20 11/01/20 (unknown) (no (unknown) (unknown) fenofibrate (units (un known) date) micronized 134 mg unknown) capsule (unknown) (no (unknown) (unknown) household (units (unkn own) date) members: unknown) significant other (unknown) (no (unknown) (unknown) losartan 25 mg (units (unknown) date) tablet 25 mg PO unknown) DAILY #90 tabs 03/30/22 (unknown) (no (unknown) (unknown) losartan 25 mg (units (unknown) date) tablet unknown) (unknown) (no (unknown) (unknown) metformin 500 mg (units (unknown) date) tablet 500 mg PO unknown) BID #180 tabs 03/30/22 (unknown) (no (unknown) (unknown) metformin 500 mg (units (unknown) date) tablet unknown) (unknown) (no (unknown) (unknown) metoprolol (units (unk nown) date) succinate 25 mg unknown) 25 mg PO DAILY #90 tabs 03/30/22 (unknown) (no (unknown) (unknown) metoprolol (units (unk nown) date) succinate 25 mg unknown) tablet extended release 24 hr (unknown) (no (unknown) (unknown) naproxen sodium (units (unknown) date) 220 mg capsule unknown) 220 mg PO BID 03/28/22 03/28/22 (unknown) (no (unknown) (unknown) naproxen sodium (units (unknown) date) [Aleve] 220 mg unknown) Capsule (unknown) (no (unknown) (unknown) oxycodone 5 mg (units (unknown) date) tablet 5 mg PO unknown) Q6H PRN pain #10 tabs 05/01/22 (unknown) (no (unknown) (unknown) oxycodone 5 mg (units (unknown) date) tablet 5 mg PO unknown) Q8HR PRN Pain. #20 tabs 03/30/22 (unknown) (no (unknown) (unknown) oxycodone 5 mg (units (unknown) date) tablet unknown) (unknown) (no (unknown) (unknown) pantoprazole 40 (units (unknown) date) mg PO BID ##0 unknown) 11/01/20 (unknown) (no (unknown) (unknown) pantoprazole (units (u nknown) date) tablet unknown) (unknown) (no (unknown) (unknown) prednisone 20 mg (units (unknown) date) tablet 40 mg PO unknown) DAILY #10 tabs 05/01/22 (unknown) (no (unknown) (unknown) prednisone 20 mg (units (unknown) date) tablet unknown) (unknown) (no (unknown) (unknown) release (units (unkno wn) date) unknown) (unknown) (no (unknown) (unknown) tablet,extended (units (unknown) date) release 24 hr unknown) (unknown) (no (unknown) (unknown) tamsulosin 0.4 (units (unknown) date) mg capsule unknown) (Flomax) 0.4 mg PO BEDTIME #90 caps 03/30/22 (unknown) (no (unknown) (unknown) tamsulosin (units (unk nown) date) [Flomax] 0.4 mg unknown) Capsule (unknown) (no (unknown) (unknown) took it 4 weeks (units (unknown) date) ago. unknown) Result panel 610 (unknown) (no date) (unknown) (unknown) 1.1 (units unknown) (unknown) (unknown) (no date) (unknown) (unknown) 12.4 seconds (unkn own) (unknown) (no date) (unknown) (unknown) 29 seconds (unkn own) (unknown) (no date) (unknown) (unknown) 29 seconds (unkn own) Result panel 611 (unknown) (no (unknown) (unknown) (no value) (units (unk nown) date) unknown) (unknown) (no (unknown) (unknown) (Aleve) (units (unkno wn) date) unknown) (unknown) (no (unknown) (unknown) 0.4 mg PO (units (unkn own) date) BEDTIME Qty: 90 unknown) 0RF (unknown) (no (unknown) (unknown) 05/28/22 (units (unkno wn) date) 05/28/22 unknown) Range/Units (unknown) (no (unknown) (unknown) 05/28/22 23:15 (units (unknown) date) unknown) (unknown) (no (unknown) (unknown) 05/28/22 23:27 (units (unknown) date) unknown) (unknown) (no (unknown) (unknown) 05/28/22 23:52 (units (unknown) date) unknown) (unknown) (no (unknown) (unknown) 05/28/22 (units (unkno wn) date) unknown) (unknown) (no (unknown) (unknown) 134 mg PO DAILY (units (unknown) date) unknown) (unknown) (no (unknown) (unknown) 220 mg PO BID (units ( unknown) date) unknown) (unknown) (no (unknown) (unknown) 23:06 (units (unkno wn) date) unknown) (unknown) (no (unknown) (unknown) 23:27 23:27 (units (un known) date) unknown) (unknown) (no (unknown) (unknown) 25 mg PO DAILY (units (unknown) date) Qty: 90 0RF unknown) (unknown) (no (unknown) (unknown) 2847 (units (unkno wn) date) unknown) (unknown) (no (unknown) (unknown) 40 mg PO BID (units (u nknown) date) Qty: 0 0RF unknown) (unknown) (no (unknown) (unknown) 40 mg PO DAILY (units (unknown) date) Qty: 10 0RF unknown) (unknown) (no (unknown) (unknown) 40 mg PO DAILY (units (unknown) date) Qty: 90 0RF unknown) (unknown) (no (unknown) (unknown) 5 MG PO Q8HR As (units (unknown) date) Needed for Pain unknown) (unknown) (no (unknown) (unknown) 5 mg PO Q6H PRN (units (unknown) date) (Reason: pain) unknown) Qty: 10 0RF (unknown) (no (unknown) (unknown) 5 mg PO Q8HR PRN (units (unknown) date) (Reason: Pain.) unknown) Qty: 20 0RF (unknown) (no (unknown) (unknown) 500 mg PO BID (units ( unknown) date) Qty: 180 0RF unknown) (unknown) (no (unknown) (unknown) 81 mg PO DAILY (units (unknown) date) Qty: 9 0RF unknown) (unknown) (no (unknown) (unknown) APTT 29 (26-36) (units (unknown) date) SECONDS unknown) (unknown) (no (unknown) (unknown) Age/Sex: 66 / M (units (unknown) date) unknown) (unknown) (no (unknown) (unknown) Allergies (units (unkn own) date) unknown) (unknown) (no (unknown) (unknown) Allergy/AdvReac (units (unknown) date) Type Severity unknown) Reaction Status Date / Time (unknown) (no (unknown) (unknown) Baso # (Auto) 0 (units (unknown) date) (0-100) /uL unknown) (unknown) (no (unknown) (unknown) Baso % (Auto) (units ( unknown) date) 0.7 (0-2) % unknown) (unknown) (no (unknown) (unknown) Blood Pressure (units (unknown) date) 105/58 L 05/28/22 unknown) 23:06 (unknown) (no (unknown) (unknown) Blood Pressure (units (unknown) date) 105/58 L unknown) (unknown) (no (unknown) (unknown) COVID19 -Nasal (units (unknown) date) RAPID/Pre-Proc unknown) Stat (unknown) (no (unknown) (unknown) Chief Complaint: (units (unknown) date) Chest Pain unknown) (unknown) (no (unknown) (unknown) Complete Blood (units (unknown) date) Count AUTO DIFF unknown) Stat (unknown) (no (unknown) (unknown) Comprehensive (units ( unknown) date) Metabolic Panel unknown) Stat (unknown) (no (unknown) (unknown) Coronary artery (units (unknown) date) disease unknown) (unknown) (no (unknown) (unknown) Course (units (unkno wn) date) unknown) (unknown) (no (unknown) (unknown) : 1955 (units (unknown) date) Acct:[id number] unknown) (unknown) (no (unknown) (unknown) Date of Service: (units (unknown) date) 05/28/22 unknown) (unknown) (no (unknown) (unknown) Departure (units (unkn own) date) unknown) (unknown) (no (unknown) (unknown) Diabetes type 2, (units (unknown) date) uncontrolled unknown) (unknown) (no (unknown) (unknown) Discharge Plan (units (unknown) date) unknown) (unknown) (no (unknown) (unknown) Discontinued (units (u nknown) date) Medications unknown) (unknown) (no (unknown) (unknown) ED Orders (units (unkn own) date) unknown) (unknown) (no (unknown) (unknown) EKG-12 Lead Stat (units (unknown) date) unknown) (unknown) (no (unknown) (unknown) ER Physician: (units ( unknown) date) Pat Vega unknown) D.O. (unknown) (no (unknown) (unknown) ETOH [Ethanol (units ( unknown) date) (ETOH)] Stat unknown) (unknown) (no (unknown) (unknown) Elevated blood (units (unknown) date) alcohol level unknown) (unknown) (no (unknown) (unknown) Emergency Report (units (unknown) date) unknown) (unknown) (no (unknown) (unknown) Eos # (Auto) 200 (units (unknown) date) (0-450) /uL unknown) (unknown) (no (unknown) (unknown) Eos % (Auto) 2.5 (units (unknown) date) (2-4) % unknown) (unknown) (no (unknown) (unknown) Exam (units (unkno wn) date) unknown) (unknown) (no (unknown) (unknown) Family History (units (unknown) date) (Reviewed unknown) 04/30/22 @ 19:35 by Emma Stevens DO) (unknown) (no (unknown) (unknown) Father (units (unknown) date) Lung cancer unknown) (unknown) (no (unknown) (unknown) General (units (unkno wn) date) unknown) (unknown) (no (unknown) (unknown) H/O heart artery (units (unknown) date) stent unknown) (unknown) (no (unknown) (unknown) HPI - Chest Pain (units (unknown) date) unknown) (unknown) (no (unknown) (unknown) Hct 43.9 (41-53) (units (unknown) date) % unknown) (unknown) (no (unknown) (unknown) Hgb 14.8 (units (unkno wn) date) (13.5-17.5) g/dL unknown) (unknown) (no (unknown) (unknown) Home Medications (units (unknown) date) unknown) (unknown) (no (unknown) (unknown) INR 1.1 (units (unkno wn) date) (0.9-1.3) unknown) (unknown) (no (unknown) (unknown) Initial Vital (units ( unknown) date) Signs unknown) (unknown) (no (unknown) (unknown) Initial Vital (units ( unknown) date) Signs: unknown) (unknown) (no (unknown) (unknown) [facility] (units (unknown) date) [address] [place] [address] unknown) [place] [address] (unknown) (no (unknown) (unknown) Lab Data (units (unkno wn) date) unknown) (unknown) (no (unknown) (unknown) Lab Results (units (un known) date) unknown) (unknown) (no (unknown) (unknown) Label Comments: (units (unknown) date) unknown) (unknown) (no (unknown) (unknown) Labs: (units (unkno wn) date) unknown) (unknown) (no (unknown) (unknown) Lipase Stat (units (un known) date) unknown) (unknown) (no (unknown) (unknown) Lymph # (Auto) (units (unknown) date) 2400 (1286-0044) unknown) /uL (unknown) (no (unknown) (unknown) Lymph % (Auto) (units (unknown) date) 31.4 (25-40) % unknown) (unknown) (no (unknown) (unknown) MCH 29.6 (26-34) (units (unknown) date) PG unknown) (unknown) (no (unknown) (unknown) MCHC 33.6 (units (unkn own) date) (30-36) % unknown) (unknown) (no (unknown) (unknown) MCV 87.8 (units (unkno wn) date) (80-100) fL unknown) (unknown) (no (unknown) (unknown) MDM - Chest Pain (units (unknown) date) unknown) (unknown) (no (unknown) (unknown) Magnesium Stat (units (unknown) date) unknown) (unknown) (no (unknown) (unknown) Medical History (units (unknown) date) (Reviewed unknown) 04/30/22 @ 19:35 by Emma Stevens DO) (unknown) (no (unknown) (unknown) Medication (units (unk nown) date) Instructions unknown) Recorded Confirmed (unknown) (no (unknown) (unknown) Medication (units (unk nown) date) Instructions unknown) Recorded (unknown) (no (unknown) (unknown) Miscellaneous,Do (units (unknown) date) MD gee [Primary unknown) Care Provider] (unknown) (no (unknown) (unknown) Mode of arrival: (units (unknown) date) EMS unknown) (unknown) (no (unknown) (unknown) [place] # (Auto) (units ( unknown) date) 600 (0-900) /uL unknown) (unknown) (no (unknown) (unknown) [place] % (Auto) (units ( unknown) date) 8.3 (3-14) % unknown) (unknown) (no (unknown) (unknown) Morphine Sulfate (units (unknown) date) (Morphine 4 Mg/Ml unknown) Inj) 4 mg IV NOW ONE (unknown) (no (unknown) (unknown) Mother Medical (units (unknown) date) history unknown unknown) (unknown) (no (unknown) (unknown) Neut # (Auto) (units ( unknown) date) 4300 (2127-1132) unknown) /uL (unknown) (no (unknown) (unknown) Neut % (Auto) (units ( unknown) date) 57.1 (50-75) % unknown) (unknown) (no (unknown) (unknown) No Action (units (unkn own) date) unknown) (unknown) (no (unknown) (unknown) No Known Drug (units ( unknown) date) Allergies Allergy unknown) Verified 10/31/20 23:10 (unknown) (no (unknown) (unknown) Ordered: (units (unkno wn) date) unknown) (unknown) (no (unknown) (unknown) Orders (units (unkno wn) date) unknown) (unknown) (no (unknown) (unknown) Oxygen Delivery (units (unknown) date) Method 05/28/22 unknown) 23:06 (unknown) (no (unknown) (unknown) Oxygen Delivery (units (unknown) date) Method Room Air unknown) (unknown) (no (unknown) (unknown) PT 12.4 (units (o wn) date) (10.1-12.7) unknown) SECONDS (unknown) (no (unknown) (unknown) Partial (units (o wn) date) Thromboplastin unknown) Time Stat (unknown) (no (unknown) (unknown) Patient History (units (unknown) date) unknown) (unknown) (no (unknown) (unknown) Patient: (units (o wn) date) Frank Chan MR#: unknown) [id number] (unknown) (no (unknown) (unknown) Plt Count 137 L (units (unknown) date) (150-400) X103/uL unknown) (unknown) (no (unknown) (unknown) Prescriptions: (units (unknown) date) unknown) (unknown) (no (unknown) (unknown) Previous Rx's (units ( unknown) date) unknown) (unknown) (no (unknown) (unknown) Prothrombin Time (units (unknown) date) INR Stat unknown) (unknown) (no (unknown) (unknown) Pulse Oximetry (units (unknown) date) 95 05/28/22 23:06 unknown) (unknown) (no (unknown) (unknown) Pulse Oximetry (units (unknown) date) 95 unknown) (unknown) (no (unknown) (unknown) Pulse Rate 75 (units ( unknown) date) 05/28/22 23:06 unknown) (unknown) (no (unknown) (unknown) Pulse Rate 75 (units ( unknown) date) unknown) (unknown) (no (unknown) (unknown) RBC 5.00 (units (o wn) date) (4.5-5.9) X106/uL unknown) (unknown) (no (unknown) (unknown) RDW 13.5 (units (o wn) date) (11.6-14.8) % unknown) (unknown) (no (unknown) (unknown) Referrals: (units (unk nown) date) unknown) (unknown) (no (unknown) (unknown) Related Data (units (u nknown) date) unknown) (unknown) (no (unknown) (unknown) Respiratory Rate (units (unknown) date) 16 05/28/22 23:06 unknown) (unknown) (no (unknown) (unknown) Respiratory Rate (units (unknown) date) 16 unknown) (unknown) (no (unknown) (unknown) Result diagrams: (units (unknown) date) unknown) (unknown) (no (unknown) (unknown) Signed By: (units (unk nown) date) unknown) (unknown) (no (unknown) (unknown) Smoking Status: (units (unknown) date) Current every day unknown) smoker (unknown) (no (unknown) (unknown) Social History (units (unknown) date) (Reviewed unknown) 04/30/22 @ 19:35 by Emma Stevens DO) (unknown) (no (unknown) (unknown) Source: EMS (units (un known) date) unknown) (unknown) (no (unknown) (unknown) Stated (units (unkno wn) date) Complaint: chest unknown) pain (unknown) (no (unknown) (unknown) Stop: 05/28/22 (units (unknown) date) 23:52 unknown) (unknown) (no (unknown) (unknown) Substance Use (units ( unknown) date) Type: does not unknown) use (unknown) (no (unknown) (unknown) Surgical History (units (unknown) date) (Reviewed unknown) 04/30/22 @ 19:35 by Emma Stevens DO) (unknown) (no (unknown) (unknown) Temperature 98.8 (units (unknown) date) F 05/28/22 23:06 unknown) (unknown) (no (unknown) (unknown) Temperature 98.8 (units (unknown) date) F unknown) (unknown) (no (unknown) (unknown) Time Seen by (units (u nknown) date) Provider: unknown) 05/28/22 23:39 (unknown) (no (unknown) (unknown) Troponin + CK (units ( unknown) date) Cardiac Panel unknown) Stat (unknown) (no (unknown) (unknown) Vital Signs - 8 (units (unknown) date) hr unknown) (unknown) (no (unknown) (unknown) Vital Signs (units (un known) date) unknown) (unknown) (no (unknown) (unknown) Vital signs: (units (u nknown) date) unknown) (unknown) (no (unknown) (unknown) WBC 7.6 (units (unkno wn) date) (4.5-11.0) unknown) X103/uL (unknown) (no (unknown) (unknown) XR chest 1V Stat (units (unknown) date) unknown) (unknown) (no (unknown) (unknown) [Embedded Image (units (unknown) date) Not Available] unknown) (unknown) (no (unknown) (unknown) alcohol intake (units (unknown) date) frequency: 0-2 unknown) drinks per day (unknown) (no (unknown) (unknown) alcohol intake: (units (unknown) date) former unknown) (unknown) (no (unknown) (unknown) aspirin 81 mg (units ( unknown) date) Tablet,Delayed unknown) Release (Dr/Ec) (unknown) (no (unknown) (unknown) aspirin 81 mg (units ( unknown) date) tablet,delayed 81 unknown) mg PO DAILY #9 tabs 03/30/22 (unknown) (no (unknown) (unknown) atorvastatin 40 (units (unknown) date) mg tablet unknown) (Lipitor) 40 mg PO DAILY #90 tabs 03/30/22 (unknown) (no (unknown) (unknown) atorvastatin (units (u nknown) date) [Lipitor] 40 mg unknown) tablet (unknown) (no (unknown) (unknown) capsule (units (unkno wn) date) unknown) (unknown) (no (unknown) (unknown) fenofibrate (units (un known) date) micronized 134 mg unknown) 134 mg PO DAILY 11/01/20 11/01/20 (unknown) (no (unknown) (unknown) fenofibrate (units (un known) date) micronized 134 mg unknown) capsule (unknown) (no (unknown) (unknown) household (units (unkn own) date) members: unknown) significant other (unknown) (no (unknown) (unknown) losartan 25 mg (units (unknown) date) tablet 25 mg PO unknown) DAILY #90 tabs 03/30/22 (unknown) (no (unknown) (unknown) losartan 25 mg (units (unknown) date) tablet unknown) (unknown) (no (unknown) (unknown) metformin 500 mg (units (unknown) date) tablet 500 mg PO unknown) BID #180 tabs 03/30/22 (unknown) (no (unknown) (unknown) metformin 500 mg (units (unknown) date) tablet unknown) (unknown) (no (unknown) (unknown) metoprolol (units (unk nown) date) succinate 25 mg unknown) 25 mg PO DAILY #90 tabs 03/30/22 (unknown) (no (unknown) (unknown) metoprolol (units (unk nown) date) succinate 25 mg unknown) tablet extended release 24 hr (unknown) (no (unknown) (unknown) naproxen sodium (units (unknown) date) 220 mg capsule unknown) 220 mg PO BID 03/28/22 03/28/22 (unknown) (no (unknown) (unknown) naproxen sodium (units (unknown) date) [Aleve] 220 mg unknown) Capsule (unknown) (no (unknown) (unknown) oxycodone 5 mg (units (unknown) date) tablet 5 mg PO unknown) Q6H PRN pain #10 tabs 05/01/22 (unknown) (no (unknown) (unknown) oxycodone 5 mg (units (unknown) date) tablet 5 mg PO unknown) Q8HR PRN Pain. #20 tabs 03/30/22 (unknown) (no (unknown) (unknown) oxycodone 5 mg (units (unknown) date) tablet unknown) (unknown) (no (unknown) (unknown) pantoprazole 40 (units (unknown) date) mg PO BID ##0 unknown) 11/01/20 (unknown) (no (unknown) (unknown) pantoprazole (units (u nknown) date) tablet unknown) (unknown) (no (unknown) (unknown) prednisone 20 mg (units (unknown) date) tablet 40 mg PO unknown) DAILY #10 tabs 05/01/22 (unknown) (no (unknown) (unknown) prednisone 20 mg (units (unknown) date) tablet unknown) (unknown) (no (unknown) (unknown) release (units (unkno wn) date) unknown) (unknown) (no (unknown) (unknown) tablet,extended (units (unknown) date) release 24 hr unknown) (unknown) (no (unknown) (unknown) tamsulosin 0.4 (units (unknown) date) mg capsule unknown) (Flomax) 0.4 mg PO BEDTIME #90 caps 03/30/22 (unknown) (no (unknown) (unknown) tamsulosin (units (unk nown) date) [Flomax] 0.4 mg unknown) Capsule (unknown) (no (unknown) (unknown) took it 4 weeks (units (unknown) date) ago. unknown) Result panel 612 (unknown) (no (unknown) (unknown) (no value) (units (unk nown) date) unknown) (unknown) (no (unknown) (unknown) (Aleve) (units (unkno wn) date) unknown) (unknown) (no (unknown) (unknown) 0.4 mg PO BEDTIME (units (unknown) date) Qty: 90 0RF unknown) (unknown) (no (unknown) (unknown) 12 point review (units (unknown) date) of systems is unknown) negative except for those stated above and HPI (unknown) (no (unknown) (unknown) 05/28/22 05/28/22 (units (unknown) date) Range/Units unknown) (unknown) (no (unknown) (unknown) 05/28/22 23:15 (units (unknown) date) unknown) (unknown) (no (unknown) (unknown) 05/28/22 23:27 (units (unknown) date) unknown) (unknown) (no (unknown) (unknown) 05/28/22 23:52 (units (unknown) date) unknown) (unknown) (no (unknown) (unknown) 05/28/22 (units (unkno wn) date) unknown) (unknown) (no (unknown) (unknown) 134 mg PO DAILY (units (unknown) date) unknown) (unknown) (no (unknown) (unknown) 220 mg PO BID (units ( unknown) date) unknown) (unknown) (no (unknown) (unknown) 23:06 (units (unkno wn) date) unknown) (unknown) (no (unknown) (unknown) 23:27 23:27 (units (un known) date) unknown) (unknown) (no (unknown) (unknown) 25 mg PO DAILY (units (unknown) date) Qty: 90 0RF unknown) (unknown) (no (unknown) (unknown) 2847 (units (unkno wn) date) unknown) (unknown) (no (unknown) (unknown) 40 mg PO BID Qty: (units (unknown) date) 0 0RF unknown) (unknown) (no (unknown) (unknown) 40 mg PO DAILY (units (unknown) date) Qty: 10 0RF unknown) (unknown) (no (unknown) (unknown) 40 mg PO DAILY (units (unknown) date) Qty: 90 0RF unknown) (unknown) (no (unknown) (unknown) 5 MG PO Q8HR As (units (unknown) date) Needed for Pain unknown) (unknown) (no (unknown) (unknown) 5 mg PO Q6H PRN (units (unknown) date) (Reason: pain) unknown) Qty: 10 0RF (unknown) (no (unknown) (unknown) 5 mg PO Q8HR PRN (units (unknown) date) (Reason: Pain.) unknown) Qty: 20 0RF (unknown) (no (unknown) (unknown) 50%, nuclear (units (u nknown) date) stress test that unknown) showed old a fixed infarct with nothing acute he (unknown) (no (unknown) (unknown) 500 mg PO BID (units ( unknown) date) Qty: 180 0RF unknown) (unknown) (no (unknown) (unknown) 81 mg PO DAILY (units (unknown) date) Qty: 9 0RF unknown) (unknown) (no (unknown) (unknown) ABDOMEN: Soft, (units (unknown) date) nontender. unknown) Normoactive bowel sounds all 4 quadrants. No (unknown) (no (unknown) (unknown) APTT 29 (26-36) (units (unknown) date) SECONDS unknown) (unknown) (no (unknown) (unknown) Age/Sex: 66 / M (units (unknown) date) unknown) (unknown) (no (unknown) (unknown) Allergies (units (unkn own) date) unknown) (unknown) (no (unknown) (unknown) Allergy/AdvReac (units (unknown) date) Type Severity unknown) Reaction Status Date / Time (unknown) (no (unknown) (unknown) Baso # (Auto) 0 (units (unknown) date) (0-100) /uL unknown) (unknown) (no (unknown) (unknown) Baso % (Auto) 0.7 (units (unknown) date) (0-2) % unknown) (unknown) (no (unknown) (unknown) Blood Pressure (units (unknown) date) 105/58 L 05/28/22 unknown) 23:06 (unknown) (no (unknown) (unknown) Blood Pressure (units (unknown) date) 105/58 L unknown) (unknown) (no (unknown) (unknown) CARDIOVASCULAR: (units (unknown) date) Regular rate and unknown) rhythm without murmurs, rubs or gallops. (unknown) (no (unknown) (unknown) CARDIOVASCULAR: (units (unknown) date) See HPI unknown) (unknown) (no (unknown) (unknown) COVID19 -Nasal (units (unknown) date) RAPID/Pre-Proc unknown) Stat (unknown) (no (unknown) (unknown) Chief Complaint: (units (unknown) date) Chest Pain unknown) (unknown) (no (unknown) (unknown) Complete Blood (units (unknown) date) Count AUTO DIFF unknown) Stat (unknown) (no (unknown) (unknown) Comprehensive (units ( unknown) date) Metabolic Panel unknown) Stat (unknown) (no (unknown) (unknown) Coronary artery (units (unknown) date) disease unknown) (unknown) (no (unknown) (unknown) Course (units (unkno wn) date) unknown) (unknown) (no (unknown) (unknown) : 1955 (units (unknown) date) Acct:[id number] unknown) (unknown) (no (unknown) (unknown) Date of Service: (units (unknown) date) 05/28/22 unknown) (unknown) (no (unknown) (unknown) Departure (units (unkn own) date) unknown) (unknown) (no (unknown) (unknown) Diabetes type 2, (units (unknown) date) uncontrolled unknown) (unknown) (no (unknown) (unknown) Discharge Plan (units (unknown) date) unknown) (unknown) (no (unknown) (unknown) Discontinued (units (u nknown) date) Medications unknown) (unknown) (no (unknown) (unknown) ECG Data (units (unkno wn) date) unknown) (unknown) (no (unknown) (unknown) ED Orders (units (unkn own) date) unknown) (unknown) (no (unknown) (unknown) EKG-12 Lead Stat (units (unknown) date) unknown) (unknown) (no (unknown) (unknown) ER Physician: (units ( unknown) date) Pat Vega unknown) D.O. (unknown) (no (unknown) (unknown) ETOH [Ethanol (units ( unknown) date) (ETOH)] Stat unknown) (unknown) (no (unknown) (unknown) EXTREMITIES: (units (u nknown) date) Normal range of unknown) motion, no clubbing or edema. Neurovascularly (unknown) (no (unknown) (unknown) Elevated blood (units (unknown) date) alcohol level unknown) (unknown) (no (unknown) (unknown) Emergency Report (units (unknown) date) unknown) (unknown) (no (unknown) (unknown) Eos # (Auto) 200 (units (unknown) date) (0-450) /uL unknown) (unknown) (no (unknown) (unknown) Eos % (Auto) 2.5 (units (unknown) date) (2-4) % unknown) (unknown) (no (unknown) (unknown) Exam (units (unkno wn) date) unknown) (unknown) (no (unknown) (unknown) Family History (units (unknown) date) (Reviewed 05/28/22 unknown) @ 23:59 by Pat Vega DO) (unknown) (no (unknown) (unknown) Father (units (unknown) date) Lung cancer unknown) (unknown) (no (unknown) (unknown) GASTROINTESTINAL: (units (unknown) date) Denies nausea, unknown) vomiting, abdominal pain, diarrhea, (unknown) (no (unknown) (unknown) GENERAL: Alert (units (unknown) date) 66-year-old male unknown) and in no acute distress. (unknown) (no (unknown) (unknown) GENERAL: Denies (units (unknown) date) chills, fatigue, unknown) malaise, fever, sweats, travel (unknown) (no (unknown) (unknown) : Denies (units (unkn own) date) dysuria, unknown) frequency, incontinence, hematuria, urinary retention, flank (unknown) (no (unknown) (unknown) General (units (unkno wn) date) unknown) (unknown) (no (unknown) (unknown) H/O heart artery (units (unknown) date) stent unknown) (unknown) (no (unknown) (unknown) HEENT: Denies (units ( unknown) date) sinus pain, ear unknown) pain, sore throat, difficulty swallowing, neck (unknown) (no (unknown) (unknown) HEENT: Head (units (un known) date) atraumatic,EOMI, unknown) pupils reactive, face symmetric, moist mucous (unknown) (no (unknown) (unknown) HPI - Chest Pain (units (unknown) date) unknown) (unknown) (no (unknown) (unknown) HPI narrative: (units (unknown) date) unknown) (unknown) (no (unknown) (unknown) Hct 43.9 (41-53) (units (unknown) date) % unknown) (unknown) (no (unknown) (unknown) He has chronic (units (unknown) date) ongoing back pain unknown) he had some urinary retention and back pain on (unknown) (no (unknown) (unknown) Hgb 14.8 (units (unkno wn) date) (13.5-17.5) g/dL unknown) (unknown) (no (unknown) (unknown) History of (units (unk nown) date) Present Illness unknown) (unknown) (no (unknown) (unknown) Home Medications (units (unknown) date) unknown) (unknown) (no (unknown) (unknown) INR 1.1 (0.9-1.3) (units (unknown) date) unknown) (unknown) (no (unknown) (unknown) Initial Vital (units ( unknown) date) Signs unknown) (unknown) (no (unknown) (unknown) Initial Vital (units ( unknown) date) Signs: unknown) (unknown) (no (unknown) (unknown) Interpretation: (units (unknown) date) unknown) (unknown) (no (unknown) (unknown) [facility] (units (unknown) date) [address] unknown) [place] [address] (unknown) (no (unknown) (unknown) Lab Data (units (unkno wn) date) unknown) (unknown) (no (unknown) (unknown) Lab Results (units (un known) date) unknown) (unknown) (no (unknown) (unknown) Label Comments: (units (unknown) date) unknown) (unknown) (no (unknown) (unknown) Labs: (units (unkno wn) date) unknown) (unknown) (no (unknown) (unknown) Last Admin: (units (un known) date) 05/28/22 23:56 unknown) Dose: 4 mg (unknown) (no (unknown) (unknown) Lipase Stat (units (un known) date) unknown) (unknown) (no (unknown) (unknown) Lymph # (Auto) (units (unknown) date) 2400 (1189-4210) unknown) /uL (unknown) (no (unknown) (unknown) Lymph % (Auto) (units (unknown) date) 31.4 (25-40) % unknown) (unknown) (no (unknown) (unknown) MCH 29.6 (26-34) (units (unknown) date) PG unknown) (unknown) (no (unknown) (unknown) MCHC 33.6 (30-36) (units (unknown) date) % unknown) (unknown) (no (unknown) (unknown) MCV 87.8 (80-100) (units (unknown) date) fL unknown) (unknown) (no (unknown) (unknown) MDM - Chest Pain (units (unknown) date) unknown) (unknown) (no (unknown) (unknown) MUSCULOSKELETAL: (units (unknown) date) Denies weakness, unknown) joint pain, or bony pain (unknown) (no (unknown) (unknown) Magnesium Stat (units (unknown) date) unknown) (unknown) (no (unknown) (unknown) Medical History (units (unknown) date) (Reviewed 05/28/22 unknown) @ 23:59 by Pat Vega DO) (unknown) (no (unknown) (unknown) Medication (units (unk nown) date) Instructions unknown) Recorded Confirmed (unknown) (no (unknown) (unknown) Medication (units (unk nown) date) Instructions unknown) Recorded (unknown) (no (unknown) (unknown) Miscellaneous,Doc (units (unknown) date) MD shaggy [Primary unknown) Care Provider] (unknown) (no (unknown) (unknown) Mode of arrival: (units (unknown) date) EMS unknown) (unknown) (no (unknown) (unknown) [place] # (Auto) 600 (units (unknown) date) (0-900) /uL unknown) (unknown) (no (unknown) (unknown) [place] % (Auto) 8.3 (units (unknown) date) (3-14) % unknown) (unknown) (no (unknown) (unknown) Morphine Sulfate (units (unknown) date) (Morphine 4 Mg/Ml unknown) Inj) 4 mg IV NOW ONE (unknown) (no (unknown) (unknown) [facility] (units (unknown) date) history unknown unknown) (unknown) (no (unknown) (unknown) NEUROLOGIC: (units (un known) date) Denies weakness, unknown) dizziness, headache, numbness, change in speech, (unknown) (no (unknown) (unknown) NEUROLOGICAL: (units ( unknown) date) Alert and oriented unknown) x4.Normal gait and speech. (unknown) (no (unknown) (unknown) Narrative: (units (unk nown) date) unknown) (unknown) (no (unknown) (unknown) Neut # (Auto) (units ( unknown) date) 4300 (6476-6011) unknown) /uL (unknown) (no (unknown) (unknown) Neut % (Auto) (units ( unknown) date) 57.1 (50-75) % unknown) (unknown) (no (unknown) (unknown) No Action (units (unkn own) date) unknown) (unknown) (no (unknown) (unknown) No Known Drug (units ( unknown) date) Allergies Allergy unknown) Verified 10/31/20 23:10 (unknown) (no (unknown) (unknown) April 30. Not (units (unknown) date) having symptoms unknown) today. (unknown) (no (unknown) (unknown) Ordered: (units (unkno wn) date) unknown) (unknown) (no (unknown) (unknown) Orders (units (unkno wn) date) unknown) (unknown) (no (unknown) (unknown) Oxygen Delivery (units (unknown) date) Method 05/28/22 unknown) 23:06 (unknown) (no (unknown) (unknown) Oxygen Delivery (units (unknown) date) Method Room Air unknown) (unknown) (no (unknown) (unknown) PSYCHIATRIC: No (units (unknown) date) concerning unknown) psychosocial issues. (unknown) (no (unknown) (unknown) PT 12.4 (units (unkno wn) date) (10.1-12.7) unknown) SECONDS (unknown) (no (unknown) (unknown) Partial (units (unkno wn) date) Thromboplastin unknown) Time Stat (unknown) (no (unknown) (unknown) Patient History (units (unknown) date) unknown) (unknown) (no (unknown) (unknown) Patient is a (units (u nknown) date) 66-year-old male unknown) history of coronary artery disease, diabetes, (unknown) (no (unknown) (unknown) Patient: (units (unkno wn) date) Frank Chan MR#: unknown) [id number] (unknown) (no (unknown) (unknown) Plt Count 137 L (units (unknown) date) (150-400) X103/uL unknown) (unknown) (no (unknown) (unknown) Prescriptions: (units (unknown) date) unknown) (unknown) (no (unknown) (unknown) Previous Rx's (units ( unknown) date) unknown) (unknown) (no (unknown) (unknown) Prothrombin Time (units (unknown) date) INR Stat unknown) (unknown) (no (unknown) (unknown) Pulse Oximetry 95 (units (unknown) date) 05/28/22 23:06 unknown) (unknown) (no (unknown) (unknown) Pulse Oximetry 95 (units (unknown) date) unknown) (unknown) (no (unknown) (unknown) Pulse Rate 75 (units ( unknown) date) 05/28/22 23:06 unknown) (unknown) (no (unknown) (unknown) Pulse Rate 75 (units ( unknown) date) unknown) (unknown) (no (unknown) (unknown) RBC 5.00 (units (unkno wn) date) (4.5-5.9) X106/uL unknown) (unknown) (no (unknown) (unknown) RDW 13.5 (units (unkno wn) date) (11.6-14.8) % unknown) (unknown) (no (unknown) (unknown) RESPIRATORY: (units (u nknown) date) Breath sounds unknown) equal bilaterally, no wheezes rales or rhonchi. (unknown) (no (unknown) (unknown) RESPIRATORY: (units (u nknown) date) Denies dyspnea, unknown) cough, wheezing, hemoptysis, sputum. (unknown) (no (unknown) (unknown) Referrals: (units (unk nown) date) unknown) (unknown) (no (unknown) (unknown) Related Data (units (u nknown) date) unknown) (unknown) (no (unknown) (unknown) Respiratory Rate (units (unknown) date) 16 05/28/22 23:06 unknown) (unknown) (no (unknown) (unknown) Respiratory Rate (units (unknown) date) 16 unknown) (unknown) (no (unknown) (unknown) Result diagrams: (units (unknown) date) unknown) (unknown) (no (unknown) (unknown) Review of Systems (units (unknown) date) unknown) (unknown) (no (unknown) (unknown) SKIN: No rash, no (units (unknown) date) erythema, no unknown) pruritus (unknown) (no (unknown) (unknown) SKIN: Warm, dry, (units (unknown) date) no laceration, no unknown) petechiae, no rashes or lesions. (unknown) (no (unknown) (unknown) Signed By: (units (unk nown) date) unknown) (unknown) (no (unknown) (unknown) Sinus rhythm rate (units (unknown) date) 93 WA interval 152 unknown) QRS 116 QTC 465 Q-wave noted in inferior (unknown) (no (unknown) (unknown) Smoking Status: (units (unknown) date) Current every day unknown) smoker (unknown) (no (unknown) (unknown) Social History (units (unknown) date) (Reviewed 05/28/22 unknown) @ 23:59 by Pat Vega DO) (unknown) (no (unknown) (unknown) Source: EMS (units (un known) date) unknown) (unknown) (no (unknown) (unknown) Stated Complaint: (units (unknown) date) chest pain unknown) (unknown) (no (unknown) (unknown) Stop: 05/28/22 (units (unknown) date) 23:52 unknown) (unknown) (no (unknown) (unknown) Substance Use (units ( unknown) date) Type: does not use unknown) (unknown) (no (unknown) (unknown) Surgical History (units (unknown) date) (Reviewed 05/28/22 unknown) @ 23:59 by Pat Vega DO) (unknown) (no (unknown) (unknown) Temperature 98.8 (units (unknown) date) F 05/28/22 23:06 unknown) (unknown) (no (unknown) (unknown) Temperature 98.8 (units (unknown) date) F unknown) (unknown) (no (unknown) (unknown) Time Seen by (units (u nknown) date) Provider: 05/28/22 unknown) 23:39 (unknown) (no (unknown) (unknown) Troponin + CK (units ( unknown) date) Cardiac Panel Stat unknown) (unknown) (no (unknown) (unknown) Vital Signs - 8 (units (unknown) date) hr unknown) (unknown) (no (unknown) (unknown) Vital Signs (units (un known) date) unknown) (unknown) (no (unknown) (unknown) Vital signs: (units (u nknown) date) unknown) (unknown) (no (unknown) (unknown) WBC 7.6 (units (unkno wn) date) (4.5-11.0) X103/uL unknown) (unknown) (no (unknown) (unknown) XR chest 1V Stat (units (unknown) date) unknown) (unknown) (no (unknown) (unknown) [Embedded Image (units (unknown) date) Not Available] unknown) (unknown) (no (unknown) (unknown) across his chest (units (unknown) date) dull achy radiates unknown) through to his back. Now he says it feels (unknown) (no (unknown) (unknown) active tobacco (units (unknown) date) smoker, multiple unknown) ED visits for atypical chest pain. His presents (unknown) (no (unknown) (unknown) alcohol intake (units (unknown) date) frequency: 0-2 unknown) drinks per day (unknown) (no (unknown) (unknown) alcohol intake: (units (unknown) date) former unknown) (unknown) (no (unknown) (unknown) aspirin 81 mg (units ( unknown) date) Tablet,Delayed unknown) Release (Dr/Ec) (unknown) (no (unknown) (unknown) aspirin 81 mg (units ( unknown) date) tablet,delayed 81 unknown) mg PO DAILY #9 tabs 03/30/22 (unknown) (no (unknown) (unknown) atorvastatin 40 (units (unknown) date) mg tablet unknown) (Lipitor) 40 mg PO DAILY #90 tabs 03/30/22 (unknown) (no (unknown) (unknown) atorvastatin (units (u nknown) date) [Lipitor] 40 mg unknown) tablet (unknown) (no (unknown) (unknown) atypical chest (units (unknown) date) pain during that unknown) stay he had an echocardiogram with an EF of 45 (unknown) (no (unknown) (unknown) capsule (units (unkno wn) date) unknown) (unknown) (no (unknown) (unknown) confusion (units (unkn own) date) unknown) (unknown) (no (unknown) (unknown) constipation, (units ( unknown) date) melena. unknown) (unknown) (no (unknown) (unknown) did take his (units (u nknown) date) daily aspirin. 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 (unknown) (no (unknown) (unknown) fenofibrate (units (un known) date) micronized 134 mg unknown) 134 mg PO DAILY 11/01/20 11/01/20 (unknown) (no (unknown) (unknown) fenofibrate (units (un known) date) micronized 134 mg unknown) capsule (unknown) (no (unknown) (unknown) guarding or (units (un known) date) rebound. unknown) (unknown) (no (unknown) (unknown) has been seen (units ( unknown) date) here since. It unknown) does not sound like he took anything at home he (unknown) (no (unknown) (unknown) household (units (unkn own) date) members: unknown) significant other (unknown) (no (unknown) (unknown) intact (units (unkno wn) date) unknown) (unknown) (no (unknown) (unknown) leads 2 3 and AVF (units (unknown) date) similar to unknown) previous EKG couple weeks ago no ST elevations is (unknown) (no (unknown) (unknown) losartan 25 mg (units (unknown) date) tablet 25 mg PO unknown) DAILY #90 tabs 03/30/22 (unknown) (no (unknown) (unknown) losartan 25 mg (units (unknown) date) tablet unknown) (unknown) (no (unknown) (unknown) membranes (units (unkn own) date) unknown) (unknown) (no (unknown) (unknown) metformin 500 mg (units (unknown) date) tablet 500 mg PO unknown) BID #180 tabs 03/30/22 (unknown) (no (unknown) (unknown) metformin 500 mg (units (unknown) date) tablet unknown) (unknown) (no (unknown) (unknown) metoprolol (units (unk nown) date) succinate 25 mg 25 unknown) mg PO DAILY #90 tabs 03/30/22 (unknown) (no (unknown) (unknown) metoprolol (units (unk nown) date) succinate 25 mg unknown) tablet extended release 24 hr (unknown) (no (unknown) (unknown) naproxen sodium (units (unknown) date) 220 mg capsule 220 unknown) mg PO BID 03/28/22 03/28/22 (unknown) (no (unknown) (unknown) naproxen sodium (units (unknown) date) [Aleve] 220 mg unknown) Capsule (unknown) (no (unknown) (unknown) no ST depressions (units (unknown) date) no new T-wave unknown) inversion (unknown) (no (unknown) (unknown) numb. He (units (unkno wn) date) described it is unknown) also kind of tightness. No difficulty breathing. Not (unknown) (no (unknown) (unknown) oxycodone 5 mg (units (unknown) date) tablet 5 mg PO Q6H unknown) PRN pain #10 tabs 05/01/22 (unknown) (no (unknown) (unknown) oxycodone 5 mg (units (unknown) date) tablet 5 mg PO unknown) Q8HR PRN Pain. #20 tabs 03/30/22 (unknown) (no (unknown) (unknown) oxycodone 5 mg (units (unknown) date) tablet unknown) (unknown) (no (unknown) (unknown) pain (units (unkno wn) date) unknown) (unknown) (no (unknown) (unknown) pain. (units (unkno wn) date) unknown) (unknown) (no (unknown) (unknown) pantoprazole 40 (units (unknown) date) mg PO BID ##0 unknown) 11/01/20 (unknown) (no (unknown) (unknown) pantoprazole (units (u nknown) date) tablet unknown) (unknown) (no (unknown) (unknown) prednisone 20 mg (units (unknown) date) tablet 40 mg PO unknown) DAILY #10 tabs 05/01/22 (unknown) (no (unknown) (unknown) prednisone 20 mg (units (unknown) date) tablet unknown) (unknown) (no (unknown) (unknown) release (units (unkno wn) date) unknown) (unknown) (no (unknown) (unknown) sure if this (units (u nknown) date) feels like his unknown) previous MIs. He was admitted 03/28/2022 for (unknown) (no (unknown) (unknown) tablet,extended (units (unknown) date) release 24 hr unknown) (unknown) (no (unknown) (unknown) tamsulosin 0.4 mg (units (unknown) date) capsule (Flomax) unknown) 0.4 mg PO BEDTIME #90 caps 03/30/22 (unknown) (no (unknown) (unknown) tamsulosin (units (unk nown) date) [Flomax] 0.4 mg unknown) Capsule (unknown) (no (unknown) (unknown) today with chest (units (unknown) date) pain. He says he unknown) was sitting watching TV when he felt sick all (unknown) (no (unknown) (unknown) took it 4 weeks (units (unknown) date) ago. unknown) Result panel 613 (unknown) (no date) (unknown) (unknown) > 60 ml/min (unkn own) (unknown) (no date) (unknown) (unknown) > 60 ml/min (unkn own) (unknown) (no date) (unknown) (unknown) 0.8 mg/dl (unkn own) (unknown) (no date) (unknown) (unknown) 0.85 mg/dl (unkn own) (unknown) (no date) (unknown) (unknown) 1.6 mg/dl (unkn own) (unknown) (no date) (unknown) (unknown) 1.7 (units (unkn own) unknown) (unknown) (no date) (unknown) (unknown) 106 mmol/l (unkn own) (unknown) (no date) (unknown) (unknown) 124 u/l (unkn own) (unknown) (no date) (unknown) (unknown) 137 mmol/l (unkn own) (unknown) (no date) (unknown) (unknown) 16 mmol/l (unkn own) (unknown) (no date) (unknown) (unknown) 2.2 g/dl (unkn own) (unknown) (no date) (unknown) (unknown) 3.7 g/dl (unkn own) (unknown) (no date) (unknown) (unknown) 37 u/l (unkn own) (unknown) (no date) (unknown) (unknown) 388 u/l (unkn own) (unknown) (no date) (unknown) (unknown) 4.7 mmol/l (unkn own) (unknown) (no date) (unknown) (unknown) 425 mg/dl (unkn own) (unknown) (no date) (unknown) (unknown) 425 mg/dl (unkn own) (unknown) (no date) (unknown) (unknown) 5.9 g/dl (unkn own) (unknown) (no date) (unknown) (unknown) 53 iu/l (unkn own) (unknown) (no date) (unknown) (unknown) 61 iu/l (unkn own) (unknown) (no date) (unknown) (unknown) 8 mg/dl (unkn own) (unknown) (no date) (unknown) (unknown) 8.0 mg/dl (unkn own) (unknown) (no date) (unknown) (unknown) 9.4 (units (unkn own) unknown) (unknown) (no date) (unknown) (unknown) Test not % (unkn own) performed (unknown) (no date) (unknown) (unknown) Test not % (unkn own) performed (unknown) (no date) (unknown) (unknown) Test not ng/ml (unkn own) performed (unknown) (no date) (unknown) (unknown) Test not ng/ml (unkn own) performed Result panel 614 (unknown) (no date) (unknown) (unknown) > 60 ml/min (unkn own) (unknown) (no date) (unknown) (unknown) > 60 ml/min (unkn own) (unknown) (no date) (unknown) (unknown) < 0.012 ng/ml (unkn own) (unknown) (no date) (unknown) (unknown) < 0.012 ng/ml (unkn own) (unknown) (no date) (unknown) (unknown) 0.8 mg/dl (unkn own) (unknown) (no date) (unknown) (unknown) 0.85 mg/dl (unkn own) (unknown) (no date) (unknown) (unknown) 1.6 mg/dl (unkn own) (unknown) (no date) (unknown) (unknown) 1.7 (units (unkn own) unknown) (unknown) (no date) (unknown) (unknown) 106 mmol/l (unkn own) (unknown) (no date) (unknown) (unknown) 124 u/l (unkn own) (unknown) (no date) (unknown) (unknown) 137 mmol/l (unkn own) (unknown) (no date) (unknown) (unknown) 16 mmol/l (unkn own) (unknown) (no date) (unknown) (unknown) 2.2 g/dl (unkn own) (unknown) (no date) (unknown) (unknown) 3.7 g/dl (unkn own) (unknown) (no date) (unknown) (unknown) 37 u/l (unkn own) (unknown) (no date) (unknown) (unknown) 388 u/l (unkn own) (unknown) (no date) (unknown) (unknown) 4.7 mmol/l (unkn own) (unknown) (no date) (unknown) (unknown) 425 mg/dl (unkn own) (unknown) (no date) (unknown) (unknown) 425 mg/dl (unkn own) (unknown) (no date) (unknown) (unknown) 5.9 g/dl (unkn own) (unknown) (no date) (unknown) (unknown) 53 iu/l (unkn own) (unknown) (no date) (unknown) (unknown) 61 iu/l (unkn own) (unknown) (no date) (unknown) (unknown) 8 mg/dl (unkn own) (unknown) (no date) (unknown) (unknown) 8.0 mg/dl (unkn own) (unknown) (no date) (unknown) (unknown) 9.4 (units (unkn own) unknown) (unknown) (no date) (unknown) (unknown) Test not % (unkn own) performed (unknown) (no date) (unknown) (unknown) Test not % (unkn own) performed (unknown) (no date) (unknown) (unknown) Test not ng/ml (unkn own) performed (unknown) (no date) (unknown) (unknown) Test not ng/ml (unkn own) performed Result panel 615 (unknown) (no date) (unknown) (unknown) 174 mg/dl (unkn own) (unknown) (no date) (unknown) (unknown) 174 mg/dl (unkn own) Result panel 616 (unknown) (no date) (unknown) (unknown) < 0.012 ng/ml (unkn own) (unknown) (no date) (unknown) (unknown) < 0.012 ng/ml (unkn own) Result panel 617 (unknown) (no (unknown) (unknown) (no value) (units (unk nown) date) unknown) (unknown) (no (unknown) (unknown) (Aleve) (units (unkno wn) date) unknown) (unknown) (no (unknown) (unknown) 0.4 mg PO BEDTIME (units (unknown) date) Qty: 90 0RF unknown) (unknown) (no (unknown) (unknown) 12 point review (units (unknown) date) of systems is unknown) negative except for those stated above and HPI (unknown) (no (unknown) (unknown) 05/28/22 05/28/22 (units (unknown) date) 05/28/22 unknown) Range/Units (unknown) (no (unknown) (unknown) 05/28/22 05/29/22 (units (unknown) date) Range/Units unknown) (unknown) (no (unknown) (unknown) 05/28/22 23:15 (units (unknown) date) unknown) (unknown) (no (unknown) (unknown) 05/28/22 23:27 (units (unknown) date) unknown) (unknown) (no (unknown) (unknown) 05/28/22 (units (unkno wn) date) unknown) (unknown) (no (unknown) (unknown) 05/29/22 02:05 (units (unknown) date) unknown) (unknown) (no (unknown) (unknown) 05/29/22 (units (unkno wn) date) unknown) (unknown) (no (unknown) (unknown) 134 mg PO DAILY (units (unknown) date) unknown) (unknown) (no (unknown) (unknown) 220 mg PO BID (units ( unknown) date) unknown) (unknown) (no (unknown) (unknown) 23:06 (units (unkno wn) date) unknown) (unknown) (no (unknown) (unknown) 23:27 02:05 (units (un known) date) unknown) (unknown) (no (unknown) (unknown) 23:27 23:27 23:27 (units (unknown) date) unknown) (unknown) (no (unknown) (unknown) 25 mg PO DAILY (units (unknown) date) Qty: 90 0RF unknown) (unknown) (no (unknown) (unknown) 2847 (units (unkno wn) date) unknown) (unknown) (no (unknown) (unknown) 40 mg PO BID Qty: (units (unknown) date) 0 0RF unknown) (unknown) (no (unknown) (unknown) 40 mg PO DAILY (units (unknown) date) Qty: 10 0RF unknown) (unknown) (no (unknown) (unknown) 40 mg PO DAILY (units (unknown) date) Qty: 90 0RF unknown) (unknown) (no (unknown) (unknown) 5 MG PO Q8HR As (units (unknown) date) Needed for Pain unknown) (unknown) (no (unknown) (unknown) 5 mg PO Q6H PRN (units (unknown) date) (Reason: pain) unknown) Qty: 10 0RF (unknown) (no (unknown) (unknown) 5 mg PO Q8HR PRN (units (unknown) date) (Reason: Pain.) unknown) Qty: 20 0RF (unknown) (no (unknown) (unknown) 50%, nuclear (units (u nknown) date) stress test that unknown) showed old a fixed infarct with nothing acute he (unknown) (no (unknown) (unknown) 500 mg PO BID (units ( unknown) date) Qty: 180 0RF unknown) (unknown) (no (unknown) (unknown) 81 mg PO DAILY (units (unknown) date) Qty: 9 0RF unknown) (unknown) (no (unknown) (unknown) ABDOMEN: Soft, (units (unknown) date) nontender. unknown) Normoactive bowel sounds all 4 quadrants. No (unknown) (no (unknown) (unknown) ALT (<50) IU/L (units (unknown) date) unknown) (unknown) (no (unknown) (unknown) ALT 61 H (<50) (units (unknown) date) IU/L unknown) (unknown) (no (unknown) (unknown) APTT (26-36) (units (u nknown) date) SECONDS unknown) (unknown) (no (unknown) (unknown) APTT 29 (26-36) (units (unknown) date) SECONDS unknown) (unknown) (no (unknown) (unknown) AST (17-59) IU/L (units (unknown) date) unknown) (unknown) (no (unknown) (unknown) AST 53 (17-59) (units (unknown) date) IU/L unknown) (unknown) (no (unknown) (unknown) Age/Sex: 66 / M (units (unknown) date) unknown) (unknown) (no (unknown) (unknown) Albumin (3.5-5.0) (units (unknown) date) g/dL unknown) (unknown) (no (unknown) (unknown) Albumin 3.7 (units (un known) date) (3.5-5.0) g/dL unknown) (unknown) (no (unknown) (unknown) Albumin/Globulin (units (unknown) date) Ratio (1.0-2.8) unknown) (unknown) (no (unknown) (unknown) Albumin/Globulin (units (unknown) date) Ratio 1.7 unknown) (1.0-2.8) (unknown) (no (unknown) (unknown) Alkaline (units (unkno wn) date) Phosphatase unknown) (38-126) U/L (unknown) (no (unknown) (unknown) Alkaline (units (unkno wn) date) Phosphatase 124 unknown) (38-126) U/L (unknown) (no (unknown) (unknown) Allergies (units (unkn own) date) unknown) (unknown) (no (unknown) (unknown) Allergy/AdvReac (units (unknown) date) Type Severity unknown) Reaction Status Date / Time (unknown) (no (unknown) (unknown) BUN (9-20) mg/dL (units (unknown) date) unknown) (unknown) (no (unknown) (unknown) BUN 8 L (9-20) (units (unknown) date) mg/dL unknown) (unknown) (no (unknown) (unknown) BUN/Creatinine (units (unknown) date) Ratio (6-22) unknown) (unknown) (no (unknown) (unknown) BUN/Creatinine (units (unknown) date) Ratio 9.4 (6-22) unknown) (unknown) (no (unknown) (unknown) Baso # (Auto) (units ( unknown) date) (0-100) /uL unknown) (unknown) (no (unknown) (unknown) Baso # (Auto) 0 (units (unknown) date) (0-100) /uL unknown) (unknown) (no (unknown) (unknown) Baso % (Auto) (units ( unknown) date) (0-2) % unknown) (unknown) (no (unknown) (unknown) Baso % (Auto) 0.7 (units (unknown) date) (0-2) % unknown) (unknown) (no (unknown) (unknown) Blood Pressure (units (unknown) date) 105/58 L 05/28/22 unknown) 23:06 (unknown) (no (unknown) (unknown) Blood Pressure (units (unknown) date) 105/58 L unknown) (unknown) (no (unknown) (unknown) CARDIOVASCULAR: (units (unknown) date) Regular rate and unknown) rhythm without murmurs, rubs or gallops. (unknown) (no (unknown) (unknown) CARDIOVASCULAR: (units (unknown) date) See HPI unknown) (unknown) (no (unknown) (unknown) CK-MB (CK-2) Rel (units (unknown) date) Index TNP unknown) (unknown) (no (unknown) (unknown) CK-MB (CK-2) Rel (units (unknown) date) Index unknown) (unknown) (no (unknown) (unknown) CK-MB (CK-2) TNP (units (unknown) date) unknown) (unknown) (no (unknown) (unknown) CK-MB (CK-2) (units (u nknown) date) unknown) (unknown) (no (unknown) (unknown) COVID19 -Nasal (units (unknown) date) RAPID/Pre-Proc unknown) Stat (unknown) (no (unknown) (unknown) Calcium (units (unkno wn) date) (8.4-10.2) mg/dL unknown) (unknown) (no (unknown) (unknown) Calcium 8.0 L (units ( unknown) date) (8.4-10.2) mg/dL unknown) (unknown) (no (unknown) (unknown) Carbon Dioxide (units (unknown) date) (22-32) mmol/L unknown) (unknown) (no (unknown) (unknown) Carbon Dioxide 16 (units (unknown) date) L (22-32) mmol/L unknown) (unknown) (no (unknown) (unknown) Chief Complaint: (units (unknown) date) Chest Pain unknown) (unknown) (no (unknown) (unknown) Chloride (98-107) (units (unknown) date) mmol/L unknown) (unknown) (no (unknown) (unknown) Chloride 106 (units (u nknown) date) (98-107) mmol/L unknown) (unknown) (no (unknown) (unknown) Complete Blood (units (unknown) date) Count AUTO DIFF unknown) Stat (unknown) (no (unknown) (unknown) Comprehensive (units ( unknown) date) Metabolic Panel unknown) Stat (unknown) (no (unknown) (unknown) Coronary artery (units (unknown) date) disease unknown) (unknown) (no (unknown) (unknown) Course (units (unkno wn) date) unknown) (unknown) (no (unknown) (unknown) Creatinine (units (unk nown) date) (0.66-1.25) mg/dL unknown) (unknown) (no (unknown) (unknown) Creatinine 0.85 (units (unknown) date) (0.66-1.25) mg/dL unknown) (unknown) (no (unknown) (unknown) : 1955 (units (unknown) date) Acct:[id number] unknown) (unknown) (no (unknown) (unknown) Date of Service: (units (unknown) date) 05/28/22 unknown) (unknown) (no (unknown) (unknown) Departure (units (unkn own) date) unknown) (unknown) (no (unknown) (unknown) Diabetes type 2, (units (unknown) date) uncontrolled unknown) (unknown) (no (unknown) (unknown) Discharge Plan (units (unknown) date) unknown) (unknown) (no (unknown) (unknown) Discontinued (units (u nknown) date) Medications unknown) (unknown) (no (unknown) (unknown) Documented By: [facility] (units (unknown) date) unknown) (unknown) (no (unknown) (unknown) ECG Data (units (unkno wn) date) unknown) (unknown) (no (unknown) (unknown) ED Orders (units (unkn own) date) unknown) (unknown) (no (unknown) (unknown) EKG-12 Lead (units (un known) date) Routine unknown) (unknown) (no (unknown) (unknown) EKG-12 Lead Stat (units (unknown) date) unknown) (unknown) (no (unknown) (unknown) ER Physician: (units ( unknown) date) Pat Vega unknown) D.O. (unknown) (no (unknown) (unknown) ETOH [Ethanol (units ( unknown) date) (ETOH)] Stat unknown) (unknown) (no (unknown) (unknown) EXTREMITIES: (units (u nknown) date) Normal range of unknown) motion, no clubbing or edema. Neurovascularly (unknown) (no (unknown) (unknown) Elevated blood (units (unknown) date) alcohol level unknown) (unknown) (no (unknown) (unknown) Emergency Report (units (unknown) date) unknown) (unknown) (no (unknown) (unknown) Eos # (Auto) (units (u nknown) date) (0-450) /uL unknown) (unknown) (no (unknown) (unknown) Eos # (Auto) 200 (units (unknown) date) (0-450) /uL unknown) (unknown) (no (unknown) (unknown) Eos % (Auto) (units (u nknown) date) (2-4) % unknown) (unknown) (no (unknown) (unknown) Eos % (Auto) 2.5 (units (unknown) date) (2-4) % unknown) (unknown) (no (unknown) (unknown) Estimated GFR > (units (unknown) date) 60 (>60) mL/min unknown) (unknown) (no (unknown) (unknown) Estimated GFR (units ( unknown) date) (>60) mL/min unknown) (unknown) (no (unknown) (unknown) Ethyl Alcohol ( - (units (unknown) date) 10) mg/dL unknown) (unknown) (no (unknown) (unknown) Ethyl Alcohol 174 (units (unknown) date) H ( - 10) mg/dL unknown) (unknown) (no (unknown) (unknown) Exam (units (unkno wn) date) unknown) (unknown) (no (unknown) (unknown) Family History (units (unknown) date) (Reviewed 05/28/22 unknown) @ 23:59 by Pat Vega DO) (unknown) (no (unknown) (unknown) Father (units (unknown) date) Lung cancer unknown) (unknown) (no (unknown) (unknown) GASTROINTESTINAL: (units (unknown) date) Denies nausea, unknown) vomiting, abdominal pain, diarrhea, (unknown) (no (unknown) (unknown) GENERAL: Alert (units (unknown) date) 66-year-old male unknown) and in no acute distress. (unknown) (no (unknown) (unknown) GENERAL: Denies (units (unknown) date) chills, fatigue, unknown) malaise, fever, sweats, travel (unknown) (no (unknown) (unknown) : Denies (units (unkn own) date) dysuria, unknown) frequency, incontinence, hematuria, urinary retention, flank (unknown) (no (unknown) (unknown) General (units (unkno wn) date) unknown) (unknown) (no (unknown) (unknown) Globulin (units (unkno wn) date) (1.7-4.1) g/dL unknown) (unknown) (no (unknown) (unknown) Globulin 2.2 (units (u nknown) date) (1.7-4.1) g/dL unknown) (unknown) (no (unknown) (unknown) Glucose (80-110) (units (unknown) date) mg/dL unknown) (unknown) (no (unknown) (unknown) Glucose 425 H (units ( unknown) date) (80-110) mg/dL unknown) (unknown) (no (unknown) (unknown) H/O heart artery (units (unknown) date) stent unknown) (unknown) (no (unknown) (unknown) HEENT: Denies (units ( unknown) date) sinus pain, ear unknown) pain, sore throat, difficulty swallowing, neck (unknown) (no (unknown) (unknown) HEENT: Head (units (un known) date) atraumatic,EOMI, unknown) pupils reactive, face symmetric, moist mucous (unknown) (no (unknown) (unknown) HPI - Chest Pain (units (unknown) date) unknown) (unknown) (no (unknown) (unknown) HPI narrative: (units (unknown) date) unknown) (unknown) (no (unknown) (unknown) Hct (41-53) % (units ( unknown) date) unknown) (unknown) (no (unknown) (unknown) Hct 43.9 (41-53) (units (unknown) date) % unknown) (unknown) (no (unknown) (unknown) He has chronic (units (unknown) date) ongoing back pain unknown) he had some urinary retention and back pain on (unknown) (no (unknown) (unknown) Hgb (13.5-17.5) (units (unknown) date) g/dL unknown) (unknown) (no (unknown) (unknown) Hgb 14.8 (units (unkno wn) date) (13.5-17.5) g/dL unknown) (unknown) (no (unknown) (unknown) History of (units (unk nown) date) Present Illness unknown) (unknown) (no (unknown) (unknown) Home Medications (units (unknown) date) unknown) (unknown) (no (unknown) (unknown) INR (0.9-1.3) (units ( unknown) date) unknown) (unknown) (no (unknown) (unknown) INR 1.1 (0.9-1.3) (units (unknown) date) unknown) (unknown) (no (unknown) (unknown) Initial Vital (units ( unknown) date) Signs unknown) (unknown) (no (unknown) (unknown) Initial Vital (units ( unknown) date) Signs: unknown) (unknown) (no (unknown) (unknown) Interpretation: (units (unknown) date) unknown) (unknown) (no (unknown) (unknown) [facility] (units (unknown) date) [address] unknown) [place] [address] (unknown) (no (unknown) (unknown) Lab Data (units (unkno wn) date) unknown) (unknown) (no (unknown) (unknown) Lab Results (units (un known) date) unknown) (unknown) (no (unknown) (unknown) Label Comments: (units (unknown) date) unknown) (unknown) (no (unknown) (unknown) Labs: (units (unkno wn) date) unknown) (unknown) (no (unknown) (unknown) Last Admin: (units (un known) date) 05/28/22 23:56 unknown) Dose: 4 mg (unknown) (no (unknown) (unknown) Lipase (23-300) (units (unknown) date) U/L unknown) (unknown) (no (unknown) (unknown) Lipase 388 H (units (u nknown) date) (23-300) U/L unknown) (unknown) (no (unknown) (unknown) Lipase Stat (units (un known) date) unknown) (unknown) (no (unknown) (unknown) Lymph # (Auto) (units (unknown) date) (1130-1207) /uL unknown) (unknown) (no (unknown) (unknown) Lymph # (Auto) (units (unknown) date) 2400 (6495-3199) unknown) /uL (unknown) (no (unknown) (unknown) Lymph % (Auto) (units (unknown) date) (25-40) % unknown) (unknown) (no (unknown) (unknown) Lymph % (Auto) (units (unknown) date) 31.4 (25-40) % unknown) (unknown) (no (unknown) (unknown) MCH (26-34) PG (units (unknown) date) unknown) (unknown) (no (unknown) (unknown) MCH 29.6 (26-34) (units (unknown) date) PG unknown) (unknown) (no (unknown) (unknown) MCHC (30-36) % (units (unknown) date) unknown) (unknown) (no (unknown) (unknown) MCHC 33.6 (30-36) (units (unknown) date) % unknown) (unknown) (no (unknown) (unknown) MCV (80-100) fL (units (unknown) date) unknown) (unknown) (no (unknown) (unknown) MCV 87.8 (80-100) (units (unknown) date) fL unknown) (unknown) (no (unknown) (unknown) MDM - Chest Pain (units (unknown) date) unknown) (unknown) (no (unknown) (unknown) MUSCULOSKELETAL: (units (unknown) date) Denies weakness, unknown) joint pain, or bony pain (unknown) (no (unknown) (unknown) Magnesium (units (unkn own) date) (1.6-2.3) mg/dL unknown) (unknown) (no (unknown) (unknown) Magnesium 1.6 (units ( unknown) date) (1.6-2.3) mg/dL unknown) (unknown) (no (unknown) (unknown) Magnesium Stat (units (unknown) date) unknown) (unknown) (no (unknown) (unknown) Medical History (units (unknown) date) (Reviewed 05/28/22 unknown) @ 23:59 by Pat Vega DO) (unknown) (no (unknown) (unknown) Medication (units (unk nown) date) Instructions unknown) Recorded Confirmed (unknown) (no (unknown) (unknown) Medication (units (unk nown) date) Instructions unknown) Recorded (unknown) (no (unknown) (unknown) Miscellaneous,Doc (units (unknown) date) MD shaggy [Primary unknown) Care Provider] (unknown) (no (unknown) (unknown) Mode of arrival: (units (unknown) date) EMS unknown) (unknown) (no (unknown) (unknown) [place] # (Auto) (units ( unknown) date) (0-900) /uL unknown) (unknown) (no (unknown) (unknown) [place] # (Auto) 600 (units (unknown) date) (0-900) /uL unknown) (unknown) (no (unknown) (unknown) [place] % (Auto) (units ( unknown) date) (3-14) % unknown) (unknown) (no (unknown) (unknown) [place] % (Auto) 8.3 (units (unknown) date) (3-14) % unknown) (unknown) (no (unknown) (unknown) Morphine Sulfate (units (unknown) date) (Morphine 4 Mg/Ml unknown) Inj) 4 mg IV NOW ONE (unknown) (no (unknown) (unknown) [facility] (units (unknown) date) history unknown unknown) (unknown) (no (unknown) (unknown) NEUROLOGIC: (units (un known) date) Denies weakness, unknown) dizziness, headache, numbness, change in speech, (unknown) (no (unknown) (unknown) NEUROLOGICAL: (units ( unknown) date) Alert and oriented unknown) x4.Normal gait and speech. (unknown) (no (unknown) (unknown) Narrative: (units (unk nown) date) unknown) (unknown) (no (unknown) (unknown) Neut # (Auto) (units ( unknown) date) (7883-5063) /uL unknown) (unknown) (no (unknown) (unknown) Neut # (Auto) (units ( unknown) date) 4300 (9413-9689) unknown) /uL (unknown) (no (unknown) (unknown) Neut % (Auto) (units ( unknown) date) (50-75) % unknown) (unknown) (no (unknown) (unknown) Neut % (Auto) (units ( unknown) date) 57.1 (50-75) % unknown) (unknown) (no (unknown) (unknown) No Action (units (unkn own) date) unknown) (unknown) (no (unknown) (unknown) No Known Drug (units ( unknown) date) Allergies Allergy unknown) Verified 10/31/20 23:10 (unknown) (no (unknown) (unknown) April 30. Not (units (unknown) date) having symptoms unknown) today. (unknown) (no (unknown) (unknown) Ordered: (units (unkno wn) date) unknown) (unknown) (no (unknown) (unknown) Orders (units (unkno wn) date) unknown) (unknown) (no (unknown) (unknown) Oxygen Delivery (units (unknown) date) Method 05/28/22 unknown) 23:06 (unknown) (no (unknown) (unknown) Oxygen Delivery (units (unknown) date) Method Room Air unknown) (unknown) (no (unknown) (unknown) PSYCHIATRIC: No (units (unknown) date) concerning unknown) psychosocial issues. (unknown) (no (unknown) (unknown) PT (10.1-12.7) (units (unknown) date) SECONDS unknown) (unknown) (no (unknown) (unknown) PT 12.4 (units (unkno wn) date) (10.1-12.7) unknown) SECONDS (unknown) (no (unknown) (unknown) Partial (units (unkno wn) date) Thromboplastin unknown) Time Stat (unknown) (no (unknown) (unknown) Patient History (units (unknown) date) unknown) (unknown) (no (unknown) (unknown) Patient is a (units (u nknown) date) 66-year-old male unknown) history of coronary artery disease, diabetes, (unknown) (no (unknown) (unknown) Patient: (units (unkno wn) date) Frank Chan MR#: unknown) [id number] (unknown) (no (unknown) (unknown) Plt Count (units (unkn own) date) (150-400) X103/uL unknown) (unknown) (no (unknown) (unknown) Plt Count 137 L (units (unknown) date) (150-400) X103/uL unknown) (unknown) (no (unknown) (unknown) Potassium (units (unkn own) date) (3.4-5.1) mmol/L unknown) (unknown) (no (unknown) (unknown) Potassium 4.7 (units ( unknown) date) (3.4-5.1) mmol/L unknown) (unknown) (no (unknown) (unknown) Prescriptions: (units (unknown) date) unknown) (unknown) (no (unknown) (unknown) Previous Rx's (units ( unknown) date) unknown) (unknown) (no (unknown) (unknown) Prothrombin Time (units (unknown) date) INR Stat unknown) (unknown) (no (unknown) (unknown) Pulse Oximetry 95 (units (unknown) date) 05/28/22 23:06 unknown) (unknown) (no (unknown) (unknown) Pulse Oximetry 95 (units (unknown) date) unknown) (unknown) (no (unknown) (unknown) Pulse Rate 75 (units ( unknown) date) 05/28/22 23:06 unknown) (unknown) (no (unknown) (unknown) Pulse Rate 75 (units ( unknown) date) unknown) (unknown) (no (unknown) (unknown) RBC (4.5-5.9) (units ( unknown) date) X106/uL unknown) (unknown) (no (unknown) (unknown) RBC 5.00 (units (unkno wn) date) (4.5-5.9) X106/uL unknown) (unknown) (no (unknown) (unknown) RDW (11.6-14.8) % (units (unknown) date) unknown) (unknown) (no (unknown) (unknown) RDW 13.5 (units (unkno wn) date) (11.6-14.8) % unknown) (unknown) (no (unknown) (unknown) RESPIRATORY: (units (u nknown) date) Breath sounds unknown) equal bilaterally, no wheezes rales or rhonchi. (unknown) (no (unknown) (unknown) RESPIRATORY: (units (u nknown) date) Denies dyspnea, unknown) cough, wheezing, hemoptysis, sputum. (unknown) (no (unknown) (unknown) Referrals: (units (unk nown) date) unknown) (unknown) (no (unknown) (unknown) Related Data (units (u nknown) date) unknown) (unknown) (no (unknown) (unknown) Respiratory Rate (units (unknown) date) 16 05/28/22 23:06 unknown) (unknown) (no (unknown) (unknown) Respiratory Rate (units (unknown) date) 16 unknown) (unknown) (no (unknown) (unknown) Result diagrams: (units (unknown) date) unknown) (unknown) (no (unknown) (unknown) Review of Systems (units (unknown) date) unknown) (unknown) (no (unknown) (unknown) SKIN: No rash, no (units (unknown) date) erythema, no unknown) pruritus (unknown) (no (unknown) (unknown) SKIN: Warm, dry, (units (unknown) date) no laceration, no unknown) petechiae, no rashes or lesions. (unknown) (no (unknown) (unknown) Signed By: (units (unk nown) date) unknown) (unknown) (no (unknown) (unknown) Sinus rhythm rate (units (unknown) date) 93 WA interval 152 unknown) QRS 116 QTC 465 Q-wave noted in inferior (unknown) (no (unknown) (unknown) Smoking Status: (units (unknown) date) Current every day unknown) smoker (unknown) (no (unknown) (unknown) Social History (units (unknown) date) (Reviewed 05/28/22 unknown) @ 23:59 by Pat Vega DO) (unknown) (no (unknown) (unknown) Sodium (137-145) (units (unknown) date) mmol/L unknown) (unknown) (no (unknown) (unknown) Sodium 137 (units (unk nown) date) (137-145) mmol/L unknown) (unknown) (no (unknown) (unknown) Source: EMS (units (un known) date) unknown) (unknown) (no (unknown) (unknown) Stated Complaint: (units (unknown) date) chest pain unknown) (unknown) (no (unknown) (unknown) Stop: 05/28/22 (units (unknown) date) 23:52 unknown) (unknown) (no (unknown) (unknown) Substance Use (units ( unknown) date) Type: does not use unknown) (unknown) (no (unknown) (unknown) Surgical History (units (unknown) date) (Reviewed 05/28/22 unknown) @ 23:59 by Pat Vega DO) (unknown) (no (unknown) (unknown) Temperature 98.8 (units (unknown) date) F 05/28/22 23:06 unknown) (unknown) (no (unknown) (unknown) Temperature 98.8 (units (unknown) date) F unknown) (unknown) (no (unknown) (unknown) Time Seen by (units (u nknown) date) Provider: 05/28/22 unknown) 23:39 (unknown) (no (unknown) (unknown) Total Bilirubin (units (unknown) date) (0.2-1.3) mg/dL unknown) (unknown) (no (unknown) (unknown) Total Bilirubin (units (unknown) date) 0.8 (0.2-1.3) unknown) mg/dL (unknown) (no (unknown) (unknown) Total Creatine (units (unknown) date) Kinase (55-170) unknown) U/L (unknown) (no (unknown) (unknown) Total Creatine (units (unknown) date) Kinase 37 L unknown) (55-170) U/L (unknown) (no (unknown) (unknown) Total Protein (units ( unknown) date) (6.3-8.2) g/dL unknown) (unknown) (no (unknown) (unknown) Total Protein 5.9 (units (unknown) date) L (6.3-8.2) g/dL unknown) (unknown) (no (unknown) (unknown) Trop I [Troponin (units (unknown) date) I] Stat unknown) (unknown) (no (unknown) (unknown) Troponin + CK (units ( unknown) date) Cardiac Panel Stat unknown) (unknown) (no (unknown) (unknown) Troponin I < (units (u nknown) date) 0.012 (0.01-0.034) unknown) ng/mL (unknown) (no (unknown) (unknown) Vital Signs - 8 (units (unknown) date) hr unknown) (unknown) (no (unknown) (unknown) Vital Signs (units (un known) date) unknown) (unknown) (no (unknown) (unknown) Vital signs: (units (u nknown) date) unknown) (unknown) (no (unknown) (unknown) WBC (4.5-11.0) (units (unknown) date) X103/uL unknown) (unknown) (no (unknown) (unknown) WBC 7.6 (units (unkno wn) date) (4.5-11.0) X103/uL unknown) (unknown) (no (unknown) (unknown) XR chest 1V Stat (units (unknown) date) unknown) (unknown) (no (unknown) (unknown) [Embedded Image (units (unknown) date) Not Available] unknown) (unknown) (no (unknown) (unknown) across his chest (units (unknown) date) dull achy radiates unknown) through to his back. Now he says it feels (unknown) (no (unknown) (unknown) active tobacco (units (unknown) date) smoker, multiple unknown) ED visits for atypical chest pain. His presents (unknown) (no (unknown) (unknown) alcohol intake (units (unknown) date) frequency: 0-2 unknown) drinks per day (unknown) (no (unknown) (unknown) alcohol intake: (units (unknown) date) former unknown) (unknown) (no (unknown) (unknown) aspirin 81 mg (units ( unknown) date) Tablet,Delayed unknown) Release (Dr/Ec) (unknown) (no (unknown) (unknown) aspirin 81 mg (units ( unknown) date) tablet,delayed 81 unknown) mg PO DAILY #9 tabs 03/30/22 (unknown) (no (unknown) (unknown) atorvastatin 40 (units (unknown) date) mg tablet unknown) (Lipitor) 40 mg PO DAILY #90 tabs 03/30/22 (unknown) (no (unknown) (unknown) atorvastatin (units (u nknown) date) [Lipitor] 40 mg unknown) tablet (unknown) (no (unknown) (unknown) atypical chest (units (unknown) date) pain during that unknown) stay he had an echocardiogram with an EF of 45 (unknown) (no (unknown) (unknown) capsule (units (unkno wn) date) unknown) (unknown) (no (unknown) (unknown) confusion (units (unkn own) date) unknown) (unknown) (no (unknown) (unknown) constipation, (units ( unknown) date) melena. unknown) (unknown) (no (unknown) (unknown) did take his (units (u nknown) date) daily aspirin. 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 (unknown) (no (unknown) (unknown) fenofibrate (units (un known) date) micronized 134 mg unknown) 134 mg PO DAILY 11/01/20 11/01/20 (unknown) (no (unknown) (unknown) fenofibrate (units (un known) date) micronized 134 mg unknown) capsule (unknown) (no (unknown) (unknown) guarding or (units (un known) date) rebound. unknown) (unknown) (no (unknown) (unknown) has been seen (units ( unknown) date) here since. It unknown) does not sound like he took anything at home he (unknown) (no (unknown) (unknown) household (units (unkn own) date) members: unknown) significant other (unknown) (no (unknown) (unknown) intact (units (unkno wn) date) unknown) (unknown) (no (unknown) (unknown) leads 2 3 and AVF (units (unknown) date) similar to unknown) previous EKG couple weeks ago no ST elevations is (unknown) (no (unknown) (unknown) losartan 25 mg (units (unknown) date) tablet 25 mg PO unknown) DAILY #90 tabs 03/30/22 (unknown) (no (unknown) (unknown) losartan 25 mg (units (unknown) date) tablet unknown) (unknown) (no (unknown) (unknown) membranes (units (unkn own) date) unknown) (unknown) (no (unknown) (unknown) metformin 500 mg (units (unknown) date) tablet 500 mg PO unknown) BID #180 tabs 03/30/22 (unknown) (no (unknown) (unknown) metformin 500 mg (units (unknown) date) tablet unknown) (unknown) (no (unknown) (unknown) metoprolol (units (unk nown) date) succinate 25 mg 25 unknown) mg PO DAILY #90 tabs 03/30/22 (unknown) (no (unknown) (unknown) metoprolol (units (unk nown) date) succinate 25 mg unknown) tablet extended release 24 hr (unknown) (no (unknown) (unknown) naproxen sodium (units (unknown) date) 220 mg capsule 220 unknown) mg PO BID 03/28/22 03/28/22 (unknown) (no (unknown) (unknown) naproxen sodium (units (unknown) date) [Aleve] 220 mg unknown) Capsule (unknown) (no (unknown) (unknown) no ST depressions (units (unknown) date) no new T-wave unknown) inversion (unknown) (no (unknown) (unknown) numb. He (units (unkno wn) date) described it is unknown) also kind of tightness. No difficulty breathing. Not (unknown) (no (unknown) (unknown) oxycodone 5 mg (units (unknown) date) tablet 5 mg PO Q6H unknown) PRN pain #10 tabs 05/01/22 (unknown) (no (unknown) (unknown) oxycodone 5 mg (units (unknown) date) tablet 5 mg PO unknown) Q8HR PRN Pain. #20 tabs 03/30/22 (unknown) (no (unknown) (unknown) oxycodone 5 mg (units (unknown) date) tablet unknown) (unknown) (no (unknown) (unknown) pain (units (unkno wn) date) unknown) (unknown) (no (unknown) (unknown) pain. (units (unkno wn) date) unknown) (unknown) (no (unknown) (unknown) pantoprazole 40 (units (unknown) date) mg PO BID ##0 unknown) 11/01/20 (unknown) (no (unknown) (unknown) pantoprazole (units (u nknown) date) tablet unknown) (unknown) (no (unknown) (unknown) prednisone 20 mg (units (unknown) date) tablet 40 mg PO unknown) DAILY #10 tabs 05/01/22 (unknown) (no (unknown) (unknown) prednisone 20 mg (units (unknown) date) tablet unknown) (unknown) (no (unknown) (unknown) release (units (unkno wn) date) unknown) (unknown) (no (unknown) (unknown) sure if this (units (u nknown) date) feels like his unknown) previous MIs. He was admitted 03/28/2022 for (unknown) (no (unknown) (unknown) tablet,extended (units (unknown) date) release 24 hr unknown) (unknown) (no (unknown) (unknown) tamsulosin 0.4 mg (units (unknown) date) capsule (Flomax) unknown) 0.4 mg PO BEDTIME #90 caps 03/30/22 (unknown) (no (unknown) (unknown) tamsulosin (units (unk nown) date) [Flomax] 0.4 mg unknown) Capsule (unknown) (no (unknown) (unknown) today with chest (units (unknown) date) pain. He says he unknown) was sitting watching TV when he felt sick all (unknown) (no (unknown) (unknown) took it 4 weeks (units (unknown) date) ago. unknown) Result panel 618 (unknown) (no (unknown) (unknown) (no value) (units (unk nown) date) unknown) (unknown) (no (unknown) (unknown) (Aleve) (units (unkno wn) date) unknown) (unknown) (no (unknown) (unknown) *Continue to take (units (unknown) date) medications as unknown) directed (unknown) (no (unknown) (unknown) *Follow up with (units (unknown) date) your primary care unknown) provider in 2-3 days or call [phone] (unknown) (no (unknown) (unknown) *Return to ER if (units (unknown) date) you should have unknown) worsening chest pain palpitations dizziness or (unknown) (no (unknown) (unknown) *What to do: At (units (unknown) date) this time is for unknown) important he follow up with Cardiology. (unknown) (no (unknown) (unknown) *You have been (units (unknown) date) diagnosed with unknown) atypical chest (unknown) (no (unknown) (unknown) 0.4 mg PO BEDTIME (units (unknown) date) Qty: 90 0RF unknown) (unknown) (no (unknown) (unknown) 00:00 05/29/22 (units (unknown) date) unknown) (unknown) (no (unknown) (unknown) 00:01 05/29/22 (units (unknown) date) unknown) (unknown) (no (unknown) (unknown) 00:01 (units (unkno wn) date) unknown) (unknown) (no (unknown) (unknown) 00:30 05/29/22 (units (unknown) date) unknown) (unknown) (no (unknown) (unknown) 00:30 (units (unkno wn) date) unknown) (unknown) (no (unknown) (unknown) 01:00 05/29/22 (units (unknown) date) unknown) (unknown) (no (unknown) (unknown) 01:30 05/29/22 (units (unknown) date) unknown) (unknown) (no (unknown) (unknown) 01:30 (units (unkno wn) date) unknown) (unknown) (no (unknown) (unknown) 02:00 05/29/22 (units (unknown) date) unknown) (unknown) (no (unknown) (unknown) 02:00 (units (unkno wn) date) unknown) (unknown) (no (unknown) (unknown) 02:30 05/29/22 (units (unknown) date) unknown) (unknown) (no (unknown) (unknown) 03:00 05/29/22 (units (unknown) date) unknown) (unknown) (no (unknown) (unknown) 03:00 (units (unkno wn) date) unknown) (unknown) (no (unknown) (unknown) 03:30 05/29/22 (units (unknown) date) unknown) (unknown) (no (unknown) (unknown) 03:30 (units (unkno wn) date) unknown) (unknown) (no (unknown) (unknown) 04:00 05/29/22 (units (unknown) date) unknown) (unknown) (no (unknown) (unknown) 04:30 05/29/22 (units (unknown) date) unknown) (unknown) (no (unknown) (unknown) 04:30 (units (unkno wn) date) unknown) (unknown) (no (unknown) (unknown) 05:00 05/29/22 (units (unknown) date) unknown) (unknown) (no (unknown) (unknown) 05:00 (units (unkno wn) date) unknown) (unknown) (no (unknown) (unknown) 12 point review (units (unknown) date) of systems is unknown) negative except for those stated above and HPI (unknown) (no (unknown) (unknown) 05/28/22 05/28/22 (units (unknown) date) 05/28/22 unknown) Range/Units (unknown) (no (unknown) (unknown) 05/28/22 05/29/22 (units (unknown) date) Range/Units unknown) (unknown) (no (unknown) (unknown) 05/28/22 23:15 (units (unknown) date) unknown) (unknown) (no (unknown) (unknown) 05/28/22 23:27 (units (unknown) date) unknown) (unknown) (no (unknown) (unknown) 05/28/22 (units (unkno wn) date) unknown) (unknown) (no (unknown) (unknown) 05/29/22 02:05 (units (unknown) date) unknown) (unknown) (no (unknown) (unknown) 05/29/22 (units (unkno wn) date) unknown) (unknown) (no (unknown) (unknown) 134 mg PO DAILY (units (unknown) date) unknown) (unknown) (no (unknown) (unknown) 220 mg PO BID (units ( unknown) date) unknown) (unknown) (no (unknown) (unknown) 23:06 05/28/22 (units (unknown) date) unknown) (unknown) (no (unknown) (unknown) 23:16 05/28/22 (units (unknown) date) unknown) (unknown) (no (unknown) (unknown) 23:27 02:05 (units (un known) date) unknown) (unknown) (no (unknown) (unknown) 23:27 23:27 23:27 (units (unknown) date) unknown) (unknown) (no (unknown) (unknown) 23:30 05/29/22 (units (unknown) date) unknown) (unknown) (no (unknown) (unknown) 23:30 (units (unkno wn) date) unknown) (unknown) (no (unknown) (unknown) 25 mg PO DAILY (units (unknown) date) Qty: 90 0RF unknown) (unknown) (no (unknown) (unknown) 2847 (units (unkno wn) date) unknown) (unknown) (no (unknown) (unknown) 40 mg PO BID Qty: (units (unknown) date) 0 0RF unknown) (unknown) (no (unknown) (unknown) 40 mg PO DAILY (units (unknown) date) Qty: 10 0RF unknown) (unknown) (no (unknown) (unknown) 40 mg PO DAILY (units (unknown) date) Qty: 90 0RF unknown) (unknown) (no (unknown) (unknown) 5 MG PO Q8HR As (units (unknown) date) Needed for Pain unknown) (unknown) (no (unknown) (unknown) 5 mg PO Q6H PRN (units (unknown) date) (Reason: pain) unknown) Qty: 10 0RF (unknown) (no (unknown) (unknown) 5 mg PO Q8HR PRN (units (unknown) date) (Reason: Pain.) unknown) Qty: 20 0RF (unknown) (no (unknown) (unknown) 50%, nuclear (units (u nknown) date) stress test that unknown) showed old a fixed infarct with nothing acute he (unknown) (no (unknown) (unknown) 500 mg PO BID (units ( unknown) date) Qty: 180 0RF unknown) (unknown) (no (unknown) (unknown) 81 mg PO DAILY (units (unknown) date) Qty: 9 0RF unknown) (unknown) (no (unknown) (unknown) ABDOMEN: Soft, (units (unknown) date) nontender. unknown) Normoactive bowel sounds all 4 quadrants. No (unknown) (no (unknown) (unknown) ALT (<50) IU/L (units (unknown) date) unknown) (unknown) (no (unknown) (unknown) ALT 61 H (<50) (units (unknown) date) IU/L unknown) (unknown) (no (unknown) (unknown) APTT (26-36) (units (u nknown) date) SECONDS unknown) (unknown) (no (unknown) (unknown) APTT 29 (26-36) (units (unknown) date) SECONDS unknown) (unknown) (no (unknown) (unknown) AST (17-59) IU/L (units (unknown) date) unknown) (unknown) (no (unknown) (unknown) AST 53 (17-59) (units (unknown) date) IU/L unknown) (unknown) (no (unknown) (unknown) Activity (units (unkno wn) date) Restrictions/Addit unknown) ional Instructions: (unknown) (no (unknown) (unknown) Age/Sex: 66 / M (units (unknown) date) unknown) (unknown) (no (unknown) (unknown) Albumin (3.5-5.0) (units (unknown) date) g/dL unknown) (unknown) (no (unknown) (unknown) Albumin 3.7 (units (un known) date) (3.5-5.0) g/dL unknown) (unknown) (no (unknown) (unknown) Albumin/Globulin (units (unknown) date) Ratio (1.0-2.8) unknown) (unknown) (no (unknown) (unknown) Albumin/Globulin (units (unknown) date) Ratio 1.7 unknown) (1.0-2.8) (unknown) (no (unknown) (unknown) Alkaline (units (unkno wn) date) Phosphatase unknown) (38-126) U/L (unknown) (no (unknown) (unknown) Alkaline (units (unkno wn) date) Phosphatase 124 unknown) (38-126) U/L (unknown) (no (unknown) (unknown) Allergies (units (unkn own) date) unknown) (unknown) (no (unknown) (unknown) Allergy/AdvReac (units (unknown) date) Type Severity unknown) Reaction Status Date / Time (unknown) (no (unknown) (unknown) Aspirin 81 mg (units ( unknown) date) daily unknown) (unknown) (no (unknown) (unknown) Atypical chest (units (unknown) date) pain unknown) (unknown) (no (unknown) (unknown) BUN (9-20) mg/dL (units (unknown) date) unknown) (unknown) (no (unknown) (unknown) BUN 8 L (9-20) (units (unknown) date) mg/dL unknown) (unknown) (no (unknown) (unknown) BUN/Creatinine (units (unknown) date) Ratio (6-22) unknown) (unknown) (no (unknown) (unknown) BUN/Creatinine (units (unknown) date) Ratio 9.4 (6-22) unknown) (unknown) (no (unknown) (unknown) Baso # (Auto) (units ( unknown) date) (0-100) /uL unknown) (unknown) (no (unknown) (unknown) Baso # (Auto) 0 (units (unknown) date) (0-100) /uL unknown) (unknown) (no (unknown) (unknown) Baso % (Auto) (units ( unknown) date) (0-2) % unknown) (unknown) (no (unknown) (unknown) Baso % (Auto) 0.7 (units (unknown) date) (0-2) % unknown) (unknown) (no (unknown) (unknown) Blood Pressure (units (unknown) date) 105/58 L 110/59 L unknown) (unknown) (no (unknown) (unknown) Blood Pressure (units (unknown) date) 105/58 L 05/28/ unknown) 23:06 (unknown) (no (unknown) (unknown) Blood Pressure (units (unknown) date) 105/71 113/67 unknown) (unknown) (no (unknown) (unknown) Blood Pressure (units (unknown) date) 111/71 unknown) (unknown) (no (unknown) (unknown) Blood Pressure (units (unknown) date) 115/64 unknown) (unknown) (no (unknown) (unknown) Blood Pressure (units (unknown) date) 116/70 125/67 unknown) (unknown) (no (unknown) (unknown) Blood Pressure (units (unknown) date) 127/65 unknown) (unknown) (no (unknown) (unknown) Blood Pressure (units (unknown) date) 127/68 unknown) (unknown) (no (unknown) (unknown) Blood Pressure (units (unknown) date) 128/74 unknown) (unknown) (no (unknown) (unknown) Blood Pressure (units (unknown) date) 130/73 121/56 L unknown) (unknown) (no (unknown) (unknown) CARDIOVASCULAR: (units (unknown) date) Regular rate and unknown) rhythm without murmurs, rubs or gallops. (unknown) (no (unknown) (unknown) CARDIOVASCULAR: (units (unknown) date) See HPI unknown) (unknown) (no (unknown) (unknown) CK-MB (CK-2) Rel (units (unknown) date) Index TNP unknown) (unknown) (no (unknown) (unknown) CK-MB (CK-2) Rel (units (unknown) date) Index unknown) (unknown) (no (unknown) (unknown) CK-MB (CK-2) TNP (units (unknown) date) unknown) (unknown) (no (unknown) (unknown) CK-MB (CK-2) (units (u nknown) date) unknown) (unknown) (no (unknown) (unknown) Calcium (units (unkno wn) date) (8.4-10.2) mg/dL unknown) (unknown) (no (unknown) (unknown) Calcium 8.0 L (units ( unknown) date) (8.4-10.2) mg/dL unknown) (unknown) (no (unknown) (unknown) Carbon Dioxide (units (unknown) date) (22-32) mmol/L unknown) (unknown) (no (unknown) (unknown) Carbon Dioxide 16 (units (unknown) date) L (22-32) mmol/L unknown) (unknown) (no (unknown) (unknown) Chief Complaint: (units (unknown) date) Chest Pain unknown) (unknown) (no (unknown) (unknown) Chloride (98-107) (units (unknown) date) mmol/L unknown) (unknown) (no (unknown) (unknown) Chloride 106 (units (u nknown) date) (98-107) mmol/L unknown) (unknown) (no (unknown) (unknown) Clinical (units (unkno wn) date) Impression: unknown) (unknown) (no (unknown) (unknown) Complete Blood (units (unknown) date) Count AUTO DIFF unknown) Stat (unknown) (no (unknown) (unknown) Comprehensive (units ( unknown) date) Metabolic Panel unknown) Stat (unknown) (no (unknown) (unknown) Coronary artery (units (unknown) date) disease unknown) (unknown) (no (unknown) (unknown) Course (units (unkno wn) date) unknown) (unknown) (no (unknown) (unknown) Creatinine (units (unk nown) date) (0.66-1.25) mg/dL unknown) (unknown) (no (unknown) (unknown) Creatinine 0.85 (units (unknown) date) (0.66-1.25) mg/dL unknown) (unknown) (no (unknown) (unknown) : 1955 (units (unknown) date) Acct:[id number] unknown) (unknown) (no (unknown) (unknown) Date of Service: (units (unknown) date) 05/28/22 unknown) (unknown) (no (unknown) (unknown) Departure (units (unkn own) date) unknown) (unknown) (no (unknown) (unknown) Diabetes type 2, (units (unknown) date) uncontrolled unknown) (unknown) (no (unknown) (unknown) Discharge Plan (units (unknown) date) unknown) (unknown) (no (unknown) (unknown) Discontinued (units (u nknown) date) Medications unknown) (unknown) (no (unknown) (unknown) Documented By: [facility] (units (unknown) date) unknown) (unknown) (no (unknown) (unknown) ECG Data (units (unkno wn) date) unknown) (unknown) (no (unknown) (unknown) ED Orders (units (unkn own) date) unknown) (unknown) (no (unknown) (unknown) EKG-12 Lead (units (un known) date) Routine unknown) (unknown) (no (unknown) (unknown) EKG-12 Lead Stat (units (unknown) date) unknown) (unknown) (no (unknown) (unknown) ER Physician: (units ( unknown) date) Pat Vega unknown) D.O. (unknown) (no (unknown) (unknown) ETOH [Ethanol (units ( unknown) date) (ETOH)] Stat unknown) (unknown) (no (unknown) (unknown) EXTREMITIES: (units (u nknown) date) Normal range of unknown) motion, no clubbing or edema. Neurovascularly (unknown) (no (unknown) (unknown) Elevated blood (units (unknown) date) alcohol level unknown) (unknown) (no (unknown) (unknown) Emergency Report (units (unknown) date) unknown) (unknown) (no (unknown) (unknown) Eos # (Auto) (units (u nknown) date) (0-450) /uL unknown) (unknown) (no (unknown) (unknown) Eos # (Auto) 200 (units (unknown) date) (0-450) /uL unknown) (unknown) (no (unknown) (unknown) Eos % (Auto) (units (u nknown) date) (2-4) % unknown) (unknown) (no (unknown) (unknown) Eos % (Auto) 2.5 (units (unknown) date) (2-4) % unknown) (unknown) (no (unknown) (unknown) Estimated GFR > (units (unknown) date) 60 (>60) mL/min unknown) (unknown) (no (unknown) (unknown) Estimated GFR (units ( unknown) date) (>60) mL/min unknown) (unknown) (no (unknown) (unknown) Ethyl Alcohol ( - (units (unknown) date) 10) mg/dL unknown) (unknown) (no (unknown) (unknown) Ethyl Alcohol 174 (units (unknown) date) H ( - 10) mg/dL unknown) (unknown) (no (unknown) (unknown) Exam (units (unkno wn) date) unknown) (unknown) (no (unknown) (unknown) Family History (units (unknown) date) (Reviewed 05/28/22 unknown) @ 23:59 by Pat Vega DO) (unknown) (no (unknown) (unknown) Father (units (unknown) date) Lung cancer unknown) (unknown) (no (unknown) (unknown) GASTROINTESTINAL: (units (unknown) date) Denies nausea, unknown) vomiting, abdominal pain, diarrhea, (unknown) (no (unknown) (unknown) GENERAL: Alert (units (unknown) date) 66-year-old male unknown) and in no acute distress. (unknown) (no (unknown) (unknown) GENERAL: Denies (units (unknown) date) chills, fatigue, unknown) malaise, fever, sweats, travel (unknown) (no (unknown) (unknown) : Denies (units (unkn own) date) dysuria, unknown) frequency, incontinence, hematuria, urinary retention, flank (unknown) (no (unknown) (unknown) General (units (unkno wn) date) unknown) (unknown) (no (unknown) (unknown) Globulin (units (unkno wn) date) (1.7-4.1) g/dL unknown) (unknown) (no (unknown) (unknown) Globulin 2.2 (units (u nknown) date) (1.7-4.1) g/dL unknown) (unknown) (no (unknown) (unknown) Glucose (80-110) (units (unknown) date) mg/dL unknown) (unknown) (no (unknown) (unknown) Glucose 425 H (units ( unknown) date) (80-110) mg/dL unknown) (unknown) (no (unknown) (unknown) H/O heart artery (units (unknown) date) stent unknown) (unknown) (no (unknown) (unknown) HEENT: Denies (units ( unknown) date) sinus pain, ear unknown) pain, sore throat, difficulty swallowing, neck (unknown) (no (unknown) (unknown) HEENT: Head (units (un known) date) atraumatic,EOMI, unknown) pupils reactive, face symmetric, moist mucous (unknown) (no (unknown) (unknown) HPI - Chest Pain (units (unknown) date) unknown) (unknown) (no (unknown) (unknown) HPI narrative: (units (unknown) date) unknown) (unknown) (no (unknown) (unknown) Hct (41-53) % (units ( unknown) date) unknown) (unknown) (no (unknown) (unknown) Hct 43.9 (41-53) (units (unknown) date) % unknown) (unknown) (no (unknown) (unknown) He has chronic (units (unknown) date) ongoing back pain unknown) he had some urinary retention and back pain on (unknown) (no (unknown) (unknown) Hgb (13.5-17.5) (units (unknown) date) g/dL unknown) (unknown) (no (unknown) (unknown) Hgb 14.8 (units (unkno wn) date) (13.5-17.5) g/dL unknown) (unknown) (no (unknown) (unknown) History of (units (unk nown) date) Present Illness unknown) (unknown) (no (unknown) (unknown) Home Medications (units (unknown) date) unknown) (unknown) (no (unknown) (unknown) INR (0.9-1.3) (units ( unknown) date) unknown) (unknown) (no (unknown) (unknown) INR 1.1 (0.9-1.3) (units (unknown) date) unknown) (unknown) (no (unknown) (unknown) Initial Vital (units ( unknown) date) Signs unknown) (unknown) (no (unknown) (unknown) Initial Vital (units ( unknown) date) Signs: unknown) (unknown) (no (unknown) (unknown) Instructions: DI (units (unknown) date) for Atypical Chest unknown) Pain (unknown) (no (unknown) (unknown) Interpretation: (units (unknown) date) unknown) (unknown) (no (unknown) (unknown) [facility] (units (unknown) date) [address] [place] [address] Street unknown) [place] [address] (unknown) (no (unknown) (unknown) Lab Data (units (unkno wn) date) unknown) (unknown) (no (unknown) (unknown) Lab Results (units (un known) date) unknown) (unknown) (no (unknown) (unknown) Label Comments: (units (unknown) date) unknown) (unknown) (no (unknown) (unknown) Labs: (units (unkno wn) date) unknown) (unknown) (no (unknown) (unknown) Last Admin: (units (un known) date) 05/28/22 23:56 unknown) Dose: 4 mg (unknown) (no (unknown) (unknown) Last Admin: (units (un known) date) 05/29/22 04:58 unknown) Dose: 2 tab (unknown) (no (unknown) (unknown) Lipase (23-300) (units (unknown) date) U/L unknown) (unknown) (no (unknown) (unknown) Lipase 388 H (units (u nknown) date) (23-300) U/L unknown) (unknown) (no (unknown) (unknown) Lipase Stat (units (un known) date) unknown) (unknown) (no (unknown) (unknown) Lymph # (Auto) (units (unknown) date) (3439-3902) /uL unknown) (unknown) (no (unknown) (unknown) Lymph # (Auto) (units (unknown) date) 2400 (4160-4361) unknown) /uL (unknown) (no (unknown) (unknown) Lymph % (Auto) (units (unknown) date) (25-40) % unknown) (unknown) (no (unknown) (unknown) Lymph % (Auto) (units (unknown) date) 31.4 (25-40) % unknown) (unknown) (no (unknown) (unknown) MCH (26-34) PG (units (unknown) date) unknown) (unknown) (no (unknown) (unknown) MCH 29.6 (26-34) (units (unknown) date) PG unknown) (unknown) (no (unknown) (unknown) MCHC (30-36) % (units (unknown) date) unknown) (unknown) (no (unknown) (unknown) MCHC 33.6 (30-36) (units (unknown) date) % unknown) (unknown) (no (unknown) (unknown) MCV (80-100) fL (units (unknown) date) unknown) (unknown) (no (unknown) (unknown) MCV 87.8 (80-100) (units (unknown) date) fL unknown) (unknown) (no (unknown) (unknown) MDM - Chest Pain (units (unknown) date) unknown) (unknown) (no (unknown) (unknown) MUSCULOSKELETAL: (units (unknown) date) Denies weakness, unknown) joint pain, or bony pain (unknown) (no (unknown) (unknown) Magnesium (units (unkn own) date) (1.6-2.3) mg/dL unknown) (unknown) (no (unknown) (unknown) Magnesium 1.6 (units ( unknown) date) (1.6-2.3) mg/dL unknown) (unknown) (no (unknown) (unknown) Magnesium Stat (units (unknown) date) unknown) (unknown) (no (unknown) (unknown) Medical History (units (unknown) date) (Reviewed 05/28/22 unknown) @ 23:59 by Pat Vega DO) (unknown) (no (unknown) (unknown) Medication (units (unk nown) date) Instructions unknown) Recorded Confirmed (unknown) (no (unknown) (unknown) Medication (units (unk nown) date) Instructions unknown) Recorded (unknown) (no (unknown) (unknown) Miscellaneous,Doc (units (unknown) date) MD shaggy [Primary unknown) Care Provider] (unknown) (no (unknown) (unknown) Mode of arrival: (units (unknown) date) EMS unknown) (unknown) (no (unknown) (unknown) [place] # (Auto) (units ( unknown) date) (0-900) /uL unknown) (unknown) (no (unknown) (unknown) [place] # (Auto) 600 (units (unknown) date) (0-900) /uL unknown) (unknown) (no (unknown) (unknown) [place] % (Auto) (units ( unknown) date) (3-14) % unknown) (unknown) (no (unknown) (unknown) [place] % (Auto) 8.3 (units (unknown) date) (3-14) % unknown) (unknown) (no (unknown) (unknown) Morphine Sulfate (units (unknown) date) (Morphine 4 Mg/Ml unknown) Inj) 4 mg IV NOW ONE (unknown) (no (unknown) (unknown) [facility] (units (unknown) date) history unknown unknown) (unknown) (no (unknown) (unknown) NEUROLOGIC: (units (un known) date) Denies weakness, unknown) dizziness, headache, numbness, change in speech, (unknown) (no (unknown) (unknown) NEUROLOGICAL: (units ( unknown) date) Alert and oriented unknown) x4.Normal gait and speech. (unknown) (no (unknown) (unknown) Narrative: (units (unk nown) date) unknown) (unknown) (no (unknown) (unknown) Neut # (Auto) (units ( unknown) date) (4703-7473) /uL unknown) (unknown) (no (unknown) (unknown) Neut # (Auto) (units ( unknown) date) 4300 (9605-1277) unknown) /uL (unknown) (no (unknown) (unknown) Neut % (Auto) (units ( unknown) date) (50-75) % unknown) (unknown) (no (unknown) (unknown) Neut % (Auto) (units ( unknown) date) 57.1 (50-75) % unknown) (unknown) (no (unknown) (unknown) No Action (units (unkn own) date) unknown) (unknown) (no (unknown) (unknown) No Known Drug (units ( unknown) date) Allergies Allergy unknown) Verified 10/31/20 23:10 (unknown) (no (unknown) (unknown) April 30. Not (units (unknown) date) having symptoms unknown) today. (unknown) (no (unknown) (unknown) Ordered: (units (unkno wn) date) unknown) (unknown) (no (unknown) (unknown) Orders (units (unkno wn) date) unknown) (unknown) (no (unknown) (unknown) Oxycodone/Acetami (units (unknown) date) nophen unknown) (Oxycodone/Acetami nophen 5/325 Tablet) 2 tab PO NOW ONE (unknown) (no (unknown) (unknown) Oxygen Delivery (units (unknown) date) Method 05/28/22 unknown) 23:06 (unknown) (no (unknown) (unknown) Oxygen Delivery (units (unknown) date) Method Room Air unknown) (unknown) (no (unknown) (unknown) Oxygen Delivery (units (unknown) date) Method unknown) (unknown) (no (unknown) (unknown) PSYCHIATRIC: No (units (unknown) date) concerning unknown) psychosocial issues. (unknown) (no (unknown) (unknown) PT (10.1-12.7) (units (unknown) date) SECONDS unknown) (unknown) (no (unknown) (unknown) PT 12.4 (units (unkno wn) date) (10.1-12.7) unknown) SECONDS (unknown) (no (unknown) (unknown) Partial (units (unkno wn) date) Thromboplastin unknown) Time Stat (unknown) (no (unknown) (unknown) Patient (units (unkno wn) date) Disposition: Home unknown) (unknown) (no (unknown) (unknown) Patient History (units (unknown) date) unknown) (unknown) (no (unknown) (unknown) Patient is a (units (u nknown) date) 66-year-old male unknown) history of coronary artery disease, diabetes, (unknown) (no (unknown) (unknown) Patient: (units (unkno wn) date) Frank Chan MR#: unknown) [id number] (unknown) (no (unknown) (unknown) Plt Count (units (unkn own) date) (150-400) X103/uL unknown) (unknown) (no (unknown) (unknown) Plt Count 137 L (units (unknown) date) (150-400) X103/uL unknown) (unknown) (no (unknown) (unknown) Potassium (units (unkn own) date) (3.4-5.1) mmol/L unknown) (unknown) (no (unknown) (unknown) Potassium 4.7 (units ( unknown) date) (3.4-5.1) mmol/L unknown) (unknown) (no (unknown) (unknown) Prescriptions: (units (unknown) date) unknown) (unknown) (no (unknown) (unknown) Previous Rx's (units ( unknown) date) unknown) (unknown) (no (unknown) (unknown) Prothrombin Time (units (unknown) date) INR Stat unknown) (unknown) (no (unknown) (unknown) Pulse Oximetry 92 (units (unknown) date) 94 unknown) (unknown) (no (unknown) (unknown) Pulse Oximetry 93 (units (unknown) date) 95 unknown) (unknown) (no (unknown) (unknown) Pulse Oximetry 93 (units (unknown) date) unknown) (unknown) (no (unknown) (unknown) Pulse Oximetry 94 (units (unknown) date) unknown) (unknown) (no (unknown) (unknown) Pulse Oximetry 95 (units (unknown) date) 05/28/22 23:06 unknown) (unknown) (no (unknown) (unknown) Pulse Oximetry 95 (units (unknown) date) 94 unknown) (unknown) (no (unknown) (unknown) Pulse Oximetry 95 (units (unknown) date) 95 unknown) (unknown) (no (unknown) (unknown) Pulse Oximetry 96 (units (unknown) date) 95 unknown) (unknown) (no (unknown) (unknown) Pulse Rate 75 (units ( unknown) date) 05/28/22 23:06 unknown) (unknown) (no (unknown) (unknown) Pulse Rate 75 97 (units (unknown) date) H unknown) (unknown) (no (unknown) (unknown) Pulse Rate 84 82 (units (unknown) date) unknown) (unknown) (no (unknown) (unknown) Pulse Rate 84 (units ( unknown) date) unknown) (unknown) (no (unknown) (unknown) Pulse Rate 85 (units ( unknown) date) unknown) (unknown) (no (unknown) (unknown) Pulse Rate 86 88 (units (unknown) date) unknown) (unknown) (no (unknown) (unknown) Pulse Rate 89 83 (units (unknown) date) unknown) (unknown) (no (unknown) (unknown) Pulse Rate 91 H (units (unknown) date) 96 H unknown) (unknown) (no (unknown) (unknown) Pulse Rate 93 H (units (unknown) date) 91 H unknown) (unknown) (no (unknown) (unknown) Pulse Rate 93 H (units (unknown) date) unknown) (unknown) (no (unknown) (unknown) RBC (4.5-5.9) (units ( unknown) date) X106/uL unknown) (unknown) (no (unknown) (unknown) RBC 5.00 (units (unkno wn) date) (4.5-5.9) X106/uL unknown) (unknown) (no (unknown) (unknown) RDW (11.6-14.8) % (units (unknown) date) unknown) (unknown) (no (unknown) (unknown) RDW 13.5 (units (unkno wn) date) (11.6-14.8) % unknown) (unknown) (no (unknown) (unknown) RESPIRATORY: (units (u nknown) date) Breath sounds unknown) equal bilaterally, no wheezes rales or rhonchi. (unknown) (no (unknown) (unknown) RESPIRATORY: (units (u nknown) date) Denies dyspnea, unknown) cough, wheezing, hemoptysis, sputum. (unknown) (no (unknown) (unknown) Referrals: (units (unk nown) date) unknown) (unknown) (no (unknown) (unknown) Related Data (units (u nknown) date) unknown) (unknown) (no (unknown) (unknown) Respiratory Rate (units (unknown) date) 12 14 unknown) (unknown) (no (unknown) (unknown) Respiratory Rate (units (unknown) date) 14 12 unknown) (unknown) (no (unknown) (unknown) Respiratory Rate (units (unknown) date) 14 14 unknown) (unknown) (no (unknown) (unknown) Respiratory Rate (units (unknown) date) 14 unknown) (unknown) (no (unknown) (unknown) Respiratory Rate (units (unknown) date) 15 12 unknown) (unknown) (no (unknown) (unknown) Respiratory Rate (units (unknown) date) 15 unknown) (unknown) (no (unknown) (unknown) Respiratory Rate (units (unknown) date) 16 05/28/22 23:06 unknown) (unknown) (no (unknown) (unknown) Respiratory Rate (units (unknown) date) 16 15 unknown) (unknown) (no (unknown) (unknown) Respiratory Rate (units (unknown) date) 16 18 unknown) (unknown) (no (unknown) (unknown) Respiratory Rate (units (unknown) date) 16 unknown) (unknown) (no (unknown) (unknown) Result diagrams: (units (unknown) date) unknown) (unknown) (no (unknown) (unknown) Review of Systems (units (unknown) date) unknown) (unknown) (no (unknown) (unknown) SKIN: No rash, no (units (unknown) date) erythema, no unknown) pruritus (unknown) (no (unknown) (unknown) SKIN: Warm, dry, (units (unknown) date) no laceration, no unknown) petechiae, no rashes or lesions. (unknown) (no (unknown) (unknown) Signed By: (units (unk nown) date) unknown) (unknown) (no (unknown) (unknown) Sinus rhythm rate (units (unknown) date) 93 WA interval 152 unknown) QRS 116 QTC 465 Q-wave noted in inferior (unknown) (no (unknown) (unknown) Smoking Status: (units (unknown) date) Current every day unknown) smoker (unknown) (no (unknown) (unknown) Social History (units (unknown) date) (Reviewed 05/28/22 unknown) @ 23:59 by Pat Vega DO) (unknown) (no (unknown) (unknown) Sodium (137-145) (units (unknown) date) mmol/L unknown) (unknown) (no (unknown) (unknown) Sodium 137 (units (unk nown) date) (137-145) mmol/L unknown) (unknown) (no (unknown) (unknown) Source: EMS (units (un known) date) unknown) (unknown) (no (unknown) (unknown) Stated Complaint: (units (unknown) date) chest pain unknown) (unknown) (no (unknown) (unknown) Stop: 05/28/22 (units (unknown) date) 23:52 unknown) (unknown) (no (unknown) (unknown) Stop: 05/29/22 (units (unknown) date) 03:05 unknown) (unknown) (no (unknown) (unknown) Substance Use (units ( unknown) date) Type: does not use unknown) (unknown) (no (unknown) (unknown) Surgical History (units (unknown) date) (Reviewed 05/28/22 unknown) @ 23:59 by aPt Vega DO) (unknown) (no (unknown) (unknown) Temperature 98.8 (units (unknown) date) F 05/28/22 23:06 unknown) (unknown) (no (unknown) (unknown) Temperature 98.8 (units (unknown) date) F unknown) (unknown) (no (unknown) (unknown) Temperature (units (un known) date) unknown) (unknown) (no (unknown) (unknown) Time Seen by (units (u nknown) date) Provider: 05/28/22 unknown) 23:39 (unknown) (no (unknown) (unknown) Total Bilirubin (units (unknown) date) (0.2-1.3) mg/dL unknown) (unknown) (no (unknown) (unknown) Total Bilirubin (units (unknown) date) 0.8 (0.2-1.3) unknown) mg/dL (unknown) (no (unknown) (unknown) Total Creatine (units (unknown) date) Kinase (55-170) unknown) U/L (unknown) (no (unknown) (unknown) Total Creatine (units (unknown) date) Kinase 37 L unknown) (55-170) U/L (unknown) (no (unknown) (unknown) Total Protein (units ( unknown) date) (6.3-8.2) g/dL unknown) (unknown) (no (unknown) (unknown) Total Protein 5.9 (units (unknown) date) L (6.3-8.2) g/dL unknown) (unknown) (no (unknown) (unknown) Trop I [Troponin (units (unknown) date) I] Stat unknown) (unknown) (no (unknown) (unknown) Troponin + CK (units ( unknown) date) Cardiac Panel Stat unknown) (unknown) (no (unknown) (unknown) Troponin I < (units (u nknown) date) 0.012 (0.01-0.034) unknown) ng/mL (unknown) (no (unknown) (unknown) Visit Report (units (u nknown) date) Forms: Patient unknown) Portal/API (unknown) (no (unknown) (unknown) Vital Signs - 8 (units (unknown) date) hr unknown) (unknown) (no (unknown) (unknown) Vital Signs (units (un known) date) unknown) (unknown) (no (unknown) (unknown) Vital signs: (units (u nknown) date) unknown) (unknown) (no (unknown) (unknown) WBC (4.5-11.0) (units (unknown) date) X103/uL unknown) (unknown) (no (unknown) (unknown) WBC 7.6 (units (unkno wn) date) (4.5-11.0) X103/uL unknown) (unknown) (no (unknown) (unknown) XR chest 1V Stat (units (unknown) date) unknown) (unknown) (no (unknown) (unknown) [Embedded Image (units (unknown) date) Not Available] unknown) (unknown) (no (unknown) (unknown) across his chest (units (unknown) date) dull achy radiates unknown) through to his back. Now he says it feels (unknown) (no (unknown) (unknown) active tobacco (units (unknown) date) smoker, multiple unknown) ED visits for atypical chest pain. His presents (unknown) (no (unknown) (unknown) alcohol intake (units (unknown) date) frequency: 0-2 unknown) drinks per day (unknown) (no (unknown) (unknown) alcohol intake: (units (unknown) date) former unknown) (unknown) (no (unknown) (unknown) any new, (units (unkno wn) date) worsening or unknown) concerning symptoms (unknown) (no (unknown) (unknown) aspirin 81 mg (units ( unknown) date) Tablet,Delayed unknown) Release (Dr/Ec) (unknown) (no (unknown) (unknown) aspirin 81 mg (units ( unknown) date) tablet,delayed 81 unknown) mg PO DAILY #9 tabs 03/30/22 (unknown) (no (unknown) (unknown) atorvastatin 40 (units (unknown) date) mg tablet unknown) (Lipitor) 40 mg PO DAILY #90 tabs 03/30/22 (unknown) (no (unknown) (unknown) atorvastatin (units (u nknown) date) [Lipitor] 40 mg unknown) tablet (unknown) (no (unknown) (unknown) atypical chest (units (unknown) date) pain during that unknown) stay he had an echocardiogram with an EF of 45 (unknown) (no (unknown) (unknown) capsule (units (unkno wn) date) unknown) (unknown) (no (unknown) (unknown) confusion (units (unkn own) date) unknown) (unknown) (no (unknown) (unknown) constipation, (units ( unknown) date) melena. unknown) (unknown) (no (unknown) (unknown) did take his (units (u nknown) date) daily aspirin. 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 (unknown) (no (unknown) (unknown) fenofibrate (units (un known) date) micronized 134 mg unknown) 134 mg PO DAILY 11/01/20 11/01/20 (unknown) (no (unknown) (unknown) fenofibrate (units (un known) date) micronized 134 mg unknown) capsule (unknown) (no (unknown) (unknown) guarding or (units (un known) date) rebound. unknown) (unknown) (no (unknown) (unknown) has been seen (units ( unknown) date) here since. It unknown) does not sound like he took anything at home he (unknown) (no (unknown) (unknown) household (units (unkn own) date) members: unknown) significant other (unknown) (no (unknown) (unknown) intact (units (unkno wn) date) unknown) (unknown) (no (unknown) (unknown) leads 2 3 and AVF (units (unknown) date) similar to unknown) previous EKG couple weeks ago no ST elevations is (unknown) (no (unknown) (unknown) losartan 25 mg (units (unknown) date) tablet 25 mg PO unknown) DAILY #90 tabs 03/30/22 (unknown) (no (unknown) (unknown) losartan 25 mg (units (unknown) date) tablet unknown) (unknown) (no (unknown) (unknown) membranes (units (unkn own) date) unknown) (unknown) (no (unknown) (unknown) metformin 500 mg (units (unknown) date) tablet 500 mg PO unknown) BID #180 tabs 03/30/22 (unknown) (no (unknown) (unknown) metformin 500 mg (units (unknown) date) tablet unknown) (unknown) (no (unknown) (unknown) metoprolol (units (unk nown) date) succinate 25 mg 25 unknown) mg PO DAILY #90 tabs 03/30/22 (unknown) (no (unknown) (unknown) metoprolol (units (unk nown) date) succinate 25 mg unknown) tablet extended release 24 hr (unknown) (no (unknown) (unknown) naproxen sodium (units (unknown) date) 220 mg capsule 220 unknown) mg PO BID 03/28/22 03/28/22 (unknown) (no (unknown) (unknown) naproxen sodium (units (unknown) date) [Aleve] 220 mg unknown) Capsule (unknown) (no (unknown) (unknown) no ST depressions (units (unknown) date) no new T-wave unknown) inversion (unknown) (no (unknown) (unknown) numb. He (units (unkno wn) date) described it is unknown) also kind of tightness. No difficulty breathing. Not (unknown) (no (unknown) (unknown) oxycodone 5 mg (units (unknown) date) tablet 5 mg PO Q6H unknown) PRN pain #10 tabs 05/01/22 (unknown) (no (unknown) (unknown) oxycodone 5 mg (units (unknown) date) tablet 5 mg PO unknown) Q8HR PRN Pain. #20 tabs 03/30/22 (unknown) (no (unknown) (unknown) oxycodone 5 mg (units (unknown) date) tablet unknown) (unknown) (no (unknown) (unknown) pain (units (unkno wn) date) unknown) (unknown) (no (unknown) (unknown) pain. (units (unkno wn) date) unknown) (unknown) (no (unknown) (unknown) pantoprazole 40 (units (unknown) date) mg PO BID ##0 unknown) 11/01/20 (unknown) (no (unknown) (unknown) pantoprazole (units (u nknown) date) tablet unknown) (unknown) (no (unknown) (unknown) prednisone 20 mg (units (unknown) date) tablet 40 mg PO unknown) DAILY #10 tabs 05/01/22 (unknown) (no (unknown) (unknown) prednisone 20 mg (units (unknown) date) tablet unknown) (unknown) (no (unknown) (unknown) release (units (unkno wn) date) unknown) (unknown) (no (unknown) (unknown) sure if this (units (u nknown) date) feels like his unknown) previous MIs. He was admitted 03/28/2022 for (unknown) (no (unknown) (unknown) tablet,extended (units (unknown) date) release 24 hr unknown) (unknown) (no (unknown) (unknown) tamsulosin 0.4 mg (units (unknown) date) capsule (Flomax) unknown) 0.4 mg PO BEDTIME #90 caps 03/30/22 (unknown) (no (unknown) (unknown) tamsulosin (units (unk nown) date) [Flomax] 0.4 mg unknown) Capsule (unknown) (no (unknown) (unknown) today with chest (units (unknown) date) pain. He says he unknown) was sitting watching TV when he felt sick all (unknown) (no (unknown) (unknown) took it 4 weeks (units (unknown) date) ago. unknown) Result panel [id number] (unknown) (no (unknown) (unknown) (no value) (units (unk nown) date) unknown) (unknown) (no (unknown) (unknown) <Electronically (units (unknown) date) signed by Pat unknownAna Vega D.O.> (unknown) (no (unknown) (unknown) (Aleve) (units (unkno wn) date) unknown) (unknown) (no (unknown) (unknown) *Continue to take (units (unknown) date) medications as unknown) directed (unknown) (no (unknown) (unknown) *Follow up with (units (unknown) date) your primary care unknown) provider in 2-3 days or call [phone] (unknown) (no (unknown) (unknown) *Return to ER if (units (unknown) date) you should have unknown) worsening chest pain palpitations dizziness or (unknown) (no (unknown) (unknown) *What to do: At (units (unknown) date) this time is for unknown) important he follow up with Cardiology. (unknown) (no (unknown) (unknown) *You have been (units (unknown) date) diagnosed with unknown) atypical chest (unknown) (no (unknown) (unknown) / MDate of (units (unk nown) date) Service: unknown) 05/28/22Lo: EDAccession Number: [id number] (unknown) (no (unknown) (unknown) 0.4 mg PO BEDTIME (units (unknown) date) Qty: 90 0RF unknown) (unknown) (no (unknown) (unknown) 00:00 05/29/22 (units (unknown) date) unknown) (unknown) (no (unknown) (unknown) 00:01 05/29/22 (units (unknown) date) unknown) (unknown) (no (unknown) (unknown) 00:01 (units (unkno wn) date) unknown) (unknown) (no (unknown) (unknown) 00:30 05/29/22 (units (unknown) date) unknown) (unknown) (no (unknown) (unknown) 00:30 (units (unkno wn) date) unknown) (unknown) (no (unknown) (unknown) 01:00 05/29/22 (units (unknown) date) unknown) (unknown) (no (unknown) (unknown) 01:30 05/29/22 (units (unknown) date) unknown) (unknown) (no (unknown) (unknown) 01:30 (units (unkno wn) date) unknown) (unknown) (no (unknown) (unknown) 02:00 05/29/22 (units (unknown) date) unknown) (unknown) (no (unknown) (unknown) 02:00 (units (unkno wn) date) unknown) (unknown) (no (unknown) (unknown) 02:30 05/29/22 (units (unknown) date) unknown) (unknown) (no (unknown) (unknown) 03:00 05/29/22 (units (unknown) date) unknown) (unknown) (no (unknown) (unknown) 03:00 (units (unkno wn) date) unknown) (unknown) (no (unknown) (unknown) 03:30 05/29/22 (units (unknown) date) unknown) (unknown) (no (unknown) (unknown) 03:30 (units (unkno wn) date) unknown) (unknown) (no (unknown) (unknown) 04:00 05/29/22 (units (unknown) date) unknown) (unknown) (no (unknown) (unknown) 04:30 05/29/22 (units (unknown) date) unknown) (unknown) (no (unknown) (unknown) 04:30 (units (unkno wn) date) unknown) (unknown) (no (unknown) (unknown) 05:00 05/29/22 (units (unknown) date) unknown) (unknown) (no (unknown) (unknown) 05:00 (units (unkno wn) date) unknown) (unknown) (no (unknown) (unknown) 1. Nodular (units (unk nown) date) opacity within the unknown) right upper lung zone suspicious for a pulmonary (unknown) (no (unknown) (unknown) 12 point review (units (unknown) date) of systems is unknown) negative except for those stated above and HPI (unknown) (no (unknown) (unknown) 05/28/22 05/28/22 (units (unknown) date) 05/28/22 unknown) Range/Units (unknown) (no (unknown) (unknown) 05/28/22 05/29/22 (units (unknown) date) Range/Units unknown) (unknown) (no (unknown) (unknown) 05/28/22 23:15 (units (unknown) date) unknown) (unknown) (no (unknown) (unknown) 05/28/22 23:27 (units (unknown) date) unknown) (unknown) (no (unknown) (unknown) 05/28/22 (units (unkno wn) date) unknown) (unknown) (no (unknown) (unknown) 05/29/22 02:05 (units (unknown) date) unknown) (unknown) (no (unknown) (unknown) 05/29/22 0539 (units ( unknown) date) unknown) (unknown) (no (unknown) (unknown) 05/29/22 (units (unkno wn) date) unknown) (unknown) (no (unknown) (unknown) 134 mg PO DAILY (units (unknown) date) unknown) (unknown) (no (unknown) (unknown) 220 mg PO BID (units ( unknown) date) unknown) (unknown) (no (unknown) (unknown) 23:06 05/28/22 (units (unknown) date) unknown) (unknown) (no (unknown) (unknown) 23:16 05/28/22 (units (unknown) date) unknown) (unknown) (no (unknown) (unknown) 23:27 02:05 (units (un known) date) unknown) (unknown) (no (unknown) (unknown) 23:27 23:27 23:27 (units (unknown) date) unknown) (unknown) (no (unknown) (unknown) 23:30 05/29/22 (units (unknown) date) unknown) (unknown) (no (unknown) (unknown) 23:30 (units (unkno wn) date) unknown) (unknown) (no (unknown) (unknown) 25 mg PO DAILY (units (unknown) date) Qty: 90 0RF unknown) (unknown) (no (unknown) (unknown) 2847 (units (unkno wn) date) unknown) (unknown) (no (unknown) (unknown) 40 mg PO BID Qty: (units (unknown) date) 0 0RF unknown) (unknown) (no (unknown) (unknown) 40 mg PO DAILY (units (unknown) date) Qty: 10 0RF unknown) (unknown) (no (unknown) (unknown) 40 mg PO DAILY (units (unknown) date) Qty: 90 0RF unknown) (unknown) (no (unknown) (unknown) 5 MG PO Q8HR As (units (unknown) date) Needed for Pain unknown) (unknown) (no (unknown) (unknown) 5 mg PO Q6H PRN (units (unknown) date) (Reason: pain) unknown) Qty: 10 0RF (unknown) (no (unknown) (unknown) 5 mg PO Q8HR PRN (units (unknown) date) (Reason: Pain.) unknown) Qty: 20 0RF (unknown) (no (unknown) (unknown) 50%, nuclear (units (u nknown) date) stress test that unknown) showed old a fixed infarct with nothing acute he (unknown) (no (unknown) (unknown) 500 mg PO BID (units ( unknown) date) Qty: 180 0RF unknown) (unknown) (no (unknown) (unknown) 81 mg PO DAILY (units (unknown) date) Qty: 9 0RF unknown) (unknown) (no (unknown) (unknown) ABDOMEN: Soft, (units (unknown) date) nontender. unknown) Normoactive bowel sounds all 4 quadrants. No (unknown) (no (unknown) (unknown) ALT (<50) IU/L (units (unknown) date) unknown) (unknown) (no (unknown) (unknown) ALT 61 H (<50) (units (unknown) date) IU/L unknown) (unknown) (no (unknown) (unknown) APTT (26-36) (units (u nknown) date) SECONDS unknown) (unknown) (no (unknown) (unknown) APTT 29 (26-36) (units (unknown) date) SECONDS unknown) (unknown) (no (unknown) (unknown) AST (17-59) IU/L (units (unknown) date) unknown) (unknown) (no (unknown) (unknown) AST 53 (17-59) (units (unknown) date) IU/L unknown) (unknown) (no (unknown) (unknown) Activity (units (unkno wn) date) Restrictions/Addit unknown) ional Instructions: (unknown) (no (unknown) (unknown) Age/Sex: 66 / M (units (unknown) date) unknown) (unknown) (no (unknown) (unknown) Albumin (3.5-5.0) (units (unknown) date) g/dL unknown) (unknown) (no (unknown) (unknown) Albumin 3.7 (units (un known) date) (3.5-5.0) g/dL unknown) (unknown) (no (unknown) (unknown) Albumin/Globulin (units (unknown) date) Ratio (1.0-2.8) unknown) (unknown) (no (unknown) (unknown) Albumin/Globulin (units (unknown) date) Ratio 1.7 unknown) (1.0-2.8) (unknown) (no (unknown) (unknown) Alkaline (units (unkno wn) date) Phosphatase unknown) (38-126) U/L (unknown) (no (unknown) (unknown) Alkaline (units (unkno wn) date) Phosphatase 124 unknown) (38-126) U/L (unknown) (no (unknown) (unknown) Allergies (units (unkn own) date) unknown) (unknown) (no (unknown) (unknown) Allergy/AdvReac (units (unknown) date) Type Severity unknown) Reaction Status Date / Time (unknown) (no (unknown) (unknown) Aspirin 81 mg (units ( unknown) date) daily unknown) (unknown) (no (unknown) (unknown) Atypical chest (units (unknown) date) pain unknown) (unknown) (no (unknown) (unknown) BUN (9-20) mg/dL (units (unknown) date) unknown) (unknown) (no (unknown) (unknown) BUN 8 L (9-20) (units (unknown) date) mg/dL unknown) (unknown) (no (unknown) (unknown) BUN/Creatinine (units (unknown) date) Ratio (6-22) unknown) (unknown) (no (unknown) (unknown) BUN/Creatinine (units (unknown) date) Ratio 9.4 (6-22) unknown) (unknown) (no (unknown) (unknown) Baso # (Auto) (units ( unknown) date) (0-100) /uL unknown) (unknown) (no (unknown) (unknown) Baso # (Auto) 0 (units (unknown) date) (0-100) /uL unknown) (unknown) (no (unknown) (unknown) Baso % (Auto) (units ( unknown) date) (0-2) % unknown) (unknown) (no (unknown) (unknown) Baso % (Auto) 0.7 (units (unknown) date) (0-2) % unknown) (unknown) (no (unknown) (unknown) Blood Pressure (units (unknown) date) 105/58 L 110/59 L unknown) (unknown) (no (unknown) (unknown) Blood Pressure (units (unknown) date) 105/58 L 05/28/ unknown) 23:06 (unknown) (no (unknown) (unknown) Blood Pressure (units (unknown) date) 105/71 113/67 unknown) (unknown) (no (unknown) (unknown) Blood Pressure (units (unknown) date) 111/71 unknown) (unknown) (no (unknown) (unknown) Blood Pressure (units (unknown) date) 115/64 unknown) (unknown) (no (unknown) (unknown) Blood Pressure (units (unknown) date) 116/70 125/67 unknown) (unknown) (no (unknown) (unknown) Blood Pressure (units (unknown) date) 127/65 unknown) (unknown) (no (unknown) (unknown) Blood Pressure (units (unknown) date) 127/68 unknown) (unknown) (no (unknown) (unknown) Blood Pressure (units (unknown) date) 128/74 unknown) (unknown) (no (unknown) (unknown) Blood Pressure (units (unknown) date) 130/73 121/56 L unknown) (unknown) (no (unknown) (unknown) Bones and chest (units (unknown) date) wall: No unknown) suspicious bony lesions. Overlying soft tissues (unknown) (no (unknown) (unknown) CARDIOVASCULAR: (units (unknown) date) Regular rate and unknown) rhythm without murmurs, rubs or gallops. (unknown) (no (unknown) (unknown) CARDIOVASCULAR: (units (unknown) date) See HPI unknown) (unknown) (no (unknown) (unknown) CK-MB (CK-2) Rel (units (unknown) date) Index TNP unknown) (unknown) (no (unknown) (unknown) CK-MB (CK-2) Rel (units (unknown) date) Index unknown) (unknown) (no (unknown) (unknown) CK-MB (CK-2) TNP (units (unknown) date) unknown) (unknown) (no (unknown) (unknown) CK-MB (CK-2) (units (u nknown) date) unknown) (unknown) (no (unknown) (unknown) COMPARISON: (units (un known) date) [facility], unknown) CR, XR CHEST 1V, 09/08/2021, 23:07. (unknown) (no (unknown) (unknown) Calcium (units (unkno wn) date) (8.4-10.2) mg/dL unknown) (unknown) (no (unknown) (unknown) Calcium 8.0 L (units ( unknown) date) (8.4-10.2) mg/dL unknown) (unknown) (no (unknown) (unknown) Carbon Dioxide (units (unknown) date) (22-32) mmol/L unknown) (unknown) (no (unknown) (unknown) Carbon Dioxide 16 (units (unknown) date) L (22-32) mmol/L unknown) (unknown) (no (unknown) (unknown) Chest x-ray: (units (u nknown) date) unknown) (unknown) (no (unknown) (unknown) Chief Complaint: (units (unknown) date) Chest Pain unknown) (unknown) (no (unknown) (unknown) Chloride (98-107) (units (unknown) date) mmol/L unknown) (unknown) (no (unknown) (unknown) Chloride 106 (units (u nknown) date) (98-107) mmol/L unknown) (unknown) (no (unknown) (unknown) Clinical (units (unkno wn) date) Impression: unknown) (unknown) (no (unknown) (unknown) Complete Blood (units (unknown) date) Count AUTO DIFF unknown) Stat (unknown) (no (unknown) (unknown) Comprehensive (units ( unknown) date) Metabolic Panel unknown) Stat (unknown) (no (unknown) (unknown) Coronary artery (units (unknown) date) disease unknown) (unknown) (no (unknown) (unknown) Course (units (unkno wn) date) unknown) (unknown) (no (unknown) (unknown) Creatinine (units (unk nown) date) (0.66-1.25) mg/dL unknown) (unknown) (no (unknown) (unknown) Creatinine 0.85 (units (unknown) date) (0.66-1.25) mg/dL unknown) (unknown) (no (unknown) (unknown) : 1955 (units (unknown) date) Acct:[id number] unknown) (unknown) (no (unknown) (unknown) Date of Service: (units (unknown) date) 05/28/22 unknown) (unknown) (no (unknown) (unknown) Departure (units (unkn own) date) unknown) (unknown) (no (unknown) (unknown) Diabetes type 2, (units (unknown) date) uncontrolled unknown) (unknown) (no (unknown) (unknown) Dictated by: (units (u nknown) date) Donavon Fonseca, unknown) Gina on 05/28/2022 at 22:59 (unknown) (no (unknown) (unknown) Discharge Plan (units (unknown) date) unknown) (unknown) (no (unknown) (unknown) Discontinued (units (u nknown) date) Medications unknown) (unknown) (no (unknown) (unknown) Documented By: KH (units (unknown) date) unknown) (unknown) (no (unknown) (unknown) ECG Data (units (unkno wn) date) unknown) (unknown) (no (unknown) (unknown) ED Orders (units (unkn own) date) unknown) (unknown) (no (unknown) (unknown) EKG-12 Lead (units (un known) date) Routine unknown) (unknown) (no (unknown) (unknown) EKG-12 Lead Stat (units (unknown) date) unknown) (unknown) (no (unknown) (unknown) ER Physician: (units ( unknown) date) Pat Vega unknown) D.O. (unknown) (no (unknown) (unknown) ETOH [Ethanol (units ( unknown) date) (ETOH)] Stat unknown) (unknown) (no (unknown) (unknown) EXTREMITIES: (units (u nknown) date) Normal range of unknown) motion, no clubbing or edema. Neurovascularly (unknown) (no (unknown) (unknown) Elevated blood (units (unknown) date) alcohol level unknown) (unknown) (no (unknown) (unknown) Emergency Report (units (unknown) date) unknown) (unknown) (no (unknown) (unknown) Eos # (Auto) (units (u nknown) date) (0-450) /uL unknown) (unknown) (no (unknown) (unknown) Eos # (Auto) 200 (units (unknown) date) (0-450) /uL unknown) (unknown) (no (unknown) (unknown) Eos % (Auto) (units (u nknown) date) (2-4) % unknown) (unknown) (no (unknown) (unknown) Eos % (Auto) 2.5 (units (unknown) date) (2-4) % unknown) (unknown) (no (unknown) (unknown) Estimated GFR > (units (unknown) date) 60 (>60) mL/min unknown) (unknown) (no (unknown) (unknown) Estimated GFR (units ( unknown) date) (>60) mL/min unknown) (unknown) (no (unknown) (unknown) Ethyl Alcohol ( - (units (unknown) date) 10) mg/dL unknown) (unknown) (no (unknown) (unknown) Ethyl Alcohol 174 (units (unknown) date) H ( - 10) mg/dL unknown) (unknown) (no (unknown) (unknown) Exam (units (unkno wn) date) unknown) (unknown) (no (unknown) (unknown) FINDINGS: (units (unkn own) date) unknown) (unknown) (no (unknown) (unknown) Family History (units (unknown) date) (Reviewed 05/28/22 unknown) @ 23:59 by Pat Vega DO) (unknown) (no (unknown) (unknown) Father (units (unknown) date) Lung cancer unknown) (unknown) (no (unknown) (unknown) GASTROINTESTINAL: (units (unknown) date) Denies nausea, unknown) vomiting, abdominal pain, diarrhea, (unknown) (no (unknown) (unknown) GENERAL: Alert (units (unknown) date) 66-year-old male unknown) and in no acute distress. (unknown) (no (unknown) (unknown) GENERAL: Denies (units (unknown) date) chills, fatigue, unknown) malaise, fever, sweats, travel (unknown) (no (unknown) (unknown) : Denies (units (unkn own) date) dysuria, unknown) frequency, incontinence, hematuria, urinary retention, flank (unknown) (no (unknown) (unknown) General (units (unkno wn) date) unknown) (unknown) (no (unknown) (unknown) Globulin (units (unkno wn) date) (1.7-4.1) g/dL unknown) (unknown) (no (unknown) (unknown) Globulin 2.2 (units (u nknown) date) (1.7-4.1) g/dL unknown) (unknown) (no (unknown) (unknown) Glucose (80-110) (units (unknown) date) mg/dL unknown) (unknown) (no (unknown) (unknown) Glucose 425 H (units ( unknown) date) (80-110) mg/dL unknown) (unknown) (no (unknown) (unknown) H/O heart artery (units (unknown) date) stent unknown) (unknown) (no (unknown) (unknown) HEENT: Denies (units ( unknown) date) sinus pain, ear unknown) pain, sore throat, difficulty swallowing, neck (unknown) (no (unknown) (unknown) HEENT: Head (units (un known) date) atraumatic,EOMI, unknown) pupils reactive, face symmetric, moist mucous (unknown) (no (unknown) (unknown) HPI - Chest Pain (units (unknown) date) unknown) (unknown) (no (unknown) (unknown) HPI narrative: (units (unknown) date) unknown) (unknown) (no (unknown) (unknown) Hct (41-53) % (units ( unknown) date) unknown) (unknown) (no (unknown) (unknown) Hct 43.9 (41-53) (units (unknown) date) % unknown) (unknown) (no (unknown) (unknown) He has chronic (units (unknown) date) ongoing back pain unknown) he had some urinary retention and back pain on (unknown) (no (unknown) (unknown) Hgb (13.5-17.5) (units (unknown) date) g/dL unknown) (unknown) (no (unknown) (unknown) Hgb 14.8 (units (unkno wn) date) (13.5-17.5) g/dL unknown) (unknown) (no (unknown) (unknown) History of (units (unk nown) date) Present Illness unknown) (unknown) (no (unknown) (unknown) Home Medications (units (unknown) date) unknown) (unknown) (no (unknown) (unknown) IMPRESSION: (units (un known) date) unknown) (unknown) (no (unknown) (unknown) INDICATIONS: (units (u nknown) date) chest pain unknown) (unknown) (no (unknown) (unknown) INR (0.9-1.3) (units ( unknown) date) unknown) (unknown) (no (unknown) (unknown) INR 1.1 (0.9-1.3) (units (unknown) date) unknown) (unknown) (no (unknown) (unknown) Imaging Data (units (u nknown) date) unknown) (unknown) (no (unknown) (unknown) Initial Vital (units ( unknown) date) Signs unknown) (unknown) (no (unknown) (unknown) Initial Vital (units ( unknown) date) Signs: unknown) (unknown) (no (unknown) (unknown) Instructions: DI (units (unknown) date) for Atypical Chest unknown) Pain (unknown) (no (unknown) (unknown) Interpretation: (units (unknown) date) unknown) (unknown) (no (unknown) (unknown) [facility] (units (unknown) date) [address] unknown) [place] [address] (unknown) (no (unknown) (unknown) Lab Data (units (unkno wn) date) unknown) (unknown) (no (unknown) (unknown) Lab Results (units (un known) date) unknown) (unknown) (no (unknown) (unknown) Label Comments: (units (unknown) date) unknown) (unknown) (no (unknown) (unknown) Labs: (units (unkno wn) date) unknown) (unknown) (no (unknown) (unknown) Last Admin: (units (un known) date) 05/28/22 23:56 unknown) Dose: 4 mg (unknown) (no (unknown) (unknown) Last Admin: (units (un known) date) 05/29/22 04:58 unknown) Dose: 2 tab (unknown) (no (unknown) (unknown) Lipase (23-300) (units (unknown) date) U/L unknown) (unknown) (no (unknown) (unknown) Lipase 388 H (units (u nknown) date) (23-300) U/L unknown) (unknown) (no (unknown) (unknown) Lipase Stat (units (un known) date) unknown) (unknown) (no (unknown) (unknown) Lungs and pleura: (units (unknown) date) No acute unknown) consolidation within the visualized lungs. There is (unknown) (no (unknown) (unknown) Lymph # (Auto) (units (unknown) date) (9113-8773) /uL unknown) (unknown) (no (unknown) (unknown) Lymph # (Auto) (units (unknown) date) 2400 (5360-5653) unknown) /uL (unknown) (no (unknown) (unknown) Lymph % (Auto) (units (unknown) date) (25-40) % unknown) (unknown) (no (unknown) (unknown) Lymph % (Auto) (units (unknown) date) 31.4 (25-40) % unknown) (unknown) (no (unknown) (unknown) MCH (26-34) PG (units (unknown) date) unknown) (unknown) (no (unknown) (unknown) MCH 29.6 (26-34) (units (unknown) date) PG unknown) (unknown) (no (unknown) (unknown) MCHC (30-36) % (units (unknown) date) unknown) (unknown) (no (unknown) (unknown) MCHC 33.6 (30-36) (units (unknown) date) % unknown) (unknown) (no (unknown) (unknown) MCV (80-100) fL (units (unknown) date) unknown) (unknown) (no (unknown) (unknown) MCV 87.8 (80-100) (units (unknown) date) fL unknown) (unknown) (no (unknown) (unknown) MDM - Chest Pain (units (unknown) date) unknown) (unknown) (no (unknown) (unknown) MDM Narrative (units ( unknown) date) unknown) (unknown) (no (unknown) (unknown) MUSCULOSKELETAL: (units (unknown) date) Denies weakness, unknown) joint pain, or bony pain (unknown) (no (unknown) (unknown) Magnesium (units (unkn own) date) (1.6-2.3) mg/dL unknown) (unknown) (no (unknown) (unknown) Magnesium 1.6 (units ( unknown) date) (1.6-2.3) mg/dL unknown) (unknown) (no (unknown) (unknown) Magnesium Stat (units (unknown) date) unknown) (unknown) (no (unknown) (unknown) Mediastinum: (units (u nknown) date) Mediastinal unknown) contours appear normal. Heart size is normal. (unknown) (no (unknown) (unknown) Medical History (units (unknown) date) (Reviewed 05/28/22 unknown) @ 23:59 by Pat Vega DO) (unknown) (no (unknown) (unknown) Medical decision (units (unknown) date) making narrative: unknown) (unknown) (no (unknown) (unknown) Medication (units (unk nown) date) Instructions unknown) Recorded Confirmed (unknown) (no (unknown) (unknown) Medication (units (unk nown) date) Instructions unknown) Recorded (unknown) (no (unknown) (unknown) Miscellaneous,Doc (units (unknown) date) MD shaggy [Primary unknown) Care Provider] (unknown) (no (unknown) (unknown) Mode of arrival: (units (unknown) date) EMS unknown) (unknown) (no (unknown) (unknown) [place] # (Auto) (units ( unknown) date) (0-900) /uL unknown) (unknown) (no (unknown) (unknown) [place] # (Auto) 600 (units (unknown) date) (0-900) /uL unknown) (unknown) (no (unknown) (unknown) [place] % (Auto) (units ( unknown) date) (3-14) % unknown) (unknown) (no (unknown) (unknown) [place] % (Auto) 8.3 (units (unknown) date) (3-14) % unknown) (unknown) (no (unknown) (unknown) Morphine Sulfate (units (unknown) date) (Morphine 4 Mg/Ml unknown) Inj) 4 mg IV NOW ONE (unknown) (no (unknown) (unknown) Mother Medical (units (unknown) date) history unknown unknown) (unknown) (no (unknown) (unknown) NEUROLOGIC: (units (un known) date) Denies weakness, unknown) dizziness, headache, numbness, change in speech, (unknown) (no (unknown) (unknown) NEUROLOGICAL: (units ( unknown) date) Alert and oriented unknown) x4.Normal gait and speech. (unknown) (no (unknown) (unknown) Narrative: (units (unk nown) date) unknown) (unknown) (no (unknown) (unknown) Neut # (Auto) (units ( unknown) date) (5940-3169) /uL unknown) (unknown) (no (unknown) (unknown) Neut # (Auto) (units ( unknown) date) 4300 (2960-6406) unknown) /uL (unknown) (no (unknown) (unknown) Neut % (Auto) (units ( unknown) date) (50-75) % unknown) (unknown) (no (unknown) (unknown) Neut % (Auto) (units ( unknown) date) 57.1 (50-75) % unknown) (unknown) (no (unknown) (unknown) No Action (units (unkn own) date) unknown) (unknown) (no (unknown) (unknown) No Known Drug (units ( unknown) date) Allergies Allergy unknown) Verified 10/31/20 23:10 (unknown) (no (unknown) (unknown) April 30. Not (units (unknown) date) having symptoms unknown) today. (unknown) (no (unknown) (unknown) Ordered: (units (unkno wn) date) unknown) (unknown) (no (unknown) (unknown) Ordering (units (unkno wn) date) Provider: unknown) Pat Vega D.O. (unknown) (no (unknown) (unknown) Orders (units (unkno wn) date) unknown) (unknown) (no (unknown) (unknown) Oxycodone/Acetami (units (unknown) date) nophen unknown) (Oxycodone/Acetami nophen 5/325 Tablet) 2 tab PO NOW ONE (unknown) (no (unknown) (unknown) Oxygen Delivery (units (unknown) date) Method 05/28/22 unknown) 23:06 (unknown) (no (unknown) (unknown) Oxygen Delivery (units (unknown) date) Method Room Air unknown) (unknown) (no (unknown) (unknown) Oxygen Delivery (units (unknown) date) Method unknown) (unknown) (no (unknown) (unknown) PCP. I also (units (un known) date) strongly unknown) encouraged that he needs to see a school psychometrist. He says (unknown) (no (unknown) (unknown) PROCEDURE: XR (units ( unknown) date) CHEST 1V unknown) (unknown) (no (unknown) (unknown) PSYCHIATRIC: No (units (unknown) date) concerning unknown) psychosocial issues. (unknown) (no (unknown) (unknown) PT (10.1-12.7) (units (unknown) date) SECONDS unknown) (unknown) (no (unknown) (unknown) PT 12.4 (units (unkno wn) date) (10.1-12.7) unknown) SECONDS (unknown) (no (unknown) (unknown) Partial (units (unkno wn) date) Thromboplastin unknown) Time Stat (unknown) (no (unknown) (unknown) Patient (units (unkno wn) date) Disposition: Home unknown) (unknown) (no (unknown) (unknown) Patient History (units (unknown) date) unknown) (unknown) (no (unknown) (unknown) Patient has been (units (unknown) date) seen multiple unknown) times for chest pain he recently had a nuclear (unknown) (no (unknown) (unknown) Patient is a (units (u nknown) date) 66-year-old male unknown) history of coronary artery disease, diabetes, (unknown) (no (unknown) (unknown) Patient: (units (unkno wn) date) John Amador unknown) R#: [id number]: [id number]:[id number]/Sex: 75 (unknown) (no (unknown) (unknown) Patient: (units (unkno wn) date) Frank Chan MR#: unknown) [id number] (unknown) (no (unknown) (unknown) Plt Count (units (unkn own) date) (150-400) X103/uL unknown) (unknown) (no (unknown) (unknown) Plt Count 137 L (units (unknown) date) (150-400) X103/uL unknown) (unknown) (no (unknown) (unknown) Potassium (units (unkn own) date) (3.4-5.1) mmol/L unknown) (unknown) (no (unknown) (unknown) Potassium 4.7 (units ( unknown) date) (3.4-5.1) mmol/L unknown) (unknown) (no (unknown) (unknown) Prescriptions: (units (unknown) date) unknown) (unknown) (no (unknown) (unknown) Previous Rx's (units ( unknown) date) unknown) (unknown) (no (unknown) (unknown) Procedure: XR (units ( unknown) date) chest 1V unknown) (unknown) (no (unknown) (unknown) Prothrombin Time (units (unknown) date) INR Stat unknown) (unknown) (no (unknown) (unknown) Pulse Oximetry 92 (units (unknown) date) 94 unknown) (unknown) (no (unknown) (unknown) Pulse Oximetry 93 (units (unknown) date) 95 unknown) (unknown) (no (unknown) (unknown) Pulse Oximetry 93 (units (unknown) date) unknown) (unknown) (no (unknown) (unknown) Pulse Oximetry 94 (units (unknown) date) unknown) (unknown) (no (unknown) (unknown) Pulse Oximetry 95 (units (unknown) date) 05/28/22 23:06 unknown) (unknown) (no (unknown) (unknown) Pulse Oximetry 95 (units (unknown) date) 94 unknown) (unknown) (no (unknown) (unknown) Pulse Oximetry 95 (units (unknown) date) 95 unknown) (unknown) (no (unknown) (unknown) Pulse Oximetry 96 (units (unknown) date) 95 unknown) (unknown) (no (unknown) (unknown) Pulse Rate 75 (units ( unknown) date) 05/28/22 23:06 unknown) (unknown) (no (unknown) (unknown) Pulse Rate 75 97 (units (unknown) date) H unknown) (unknown) (no (unknown) (unknown) Pulse Rate 84 82 (units (unknown) date) unknown) (unknown) (no (unknown) (unknown) Pulse Rate 84 (units ( unknown) date) unknown) (unknown) (no (unknown) (unknown) Pulse Rate 85 (units ( unknown) date) unknown) (unknown) (no (unknown) (unknown) Pulse Rate 86 88 (units (unknown) date) unknown) (unknown) (no (unknown) (unknown) Pulse Rate 89 83 (units (unknown) date) unknown) (unknown) (no (unknown) (unknown) Pulse Rate 91 H (units (unknown) date) 96 H unknown) (unknown) (no (unknown) (unknown) Pulse Rate 93 H (units (unknown) date) 91 H unknown) (unknown) (no (unknown) (unknown) Pulse Rate 93 H (units (unknown) date) unknown) (unknown) (no (unknown) (unknown) RBC (4.5-5.9) (units ( unknown) date) X106/uL unknown) (unknown) (no (unknown) (unknown) RBC 5.00 (units (unkno wn) date) (4.5-5.9) X106/uL unknown) (unknown) (no (unknown) (unknown) RDW (11.6-14.8) % (units (unknown) date) unknown) (unknown) (no (unknown) (unknown) RDW 13.5 (units (unkno wn) date) (11.6-14.8) % unknown) (unknown) (no (unknown) (unknown) RESPIRATORY: (units (u nknown) date) Breath sounds unknown) equal bilaterally, no wheezes rales or rhonchi. (unknown) (no (unknown) (unknown) RESPIRATORY: (units (u nknown) date) Denies dyspnea, unknown) cough, wheezing, hemoptysis, sputum. (unknown) (no (unknown) (unknown) Radiologist's (units ( unknown) date) Impression: unknown) (unknown) (no (unknown) (unknown) Recommend a (units (un known) date) follow-up unknown) nonemergent chest CT for further evaluation. (unknown) (no (unknown) (unknown) Referrals: (units (unk nown) date) unknown) (unknown) (no (unknown) (unknown) Related Data (units (u nknown) date) unknown) (unknown) (no (unknown) (unknown) Respiratory Rate (units (unknown) date) 12 14 unknown) (unknown) (no (unknown) (unknown) Respiratory Rate (units (unknown) date) 14 12 unknown) (unknown) (no (unknown) (unknown) Respiratory Rate (units (unknown) date) 14 14 unknown) (unknown) (no (unknown) (unknown) Respiratory Rate (units (unknown) date) 14 unknown) (unknown) (no (unknown) (unknown) Respiratory Rate (units (unknown) date) 15 12 unknown) (unknown) (no (unknown) (unknown) Respiratory Rate (units (unknown) date) 15 unknown) (unknown) (no (unknown) (unknown) Respiratory Rate (units (unknown) date) 16 05/28/22 23:06 unknown) (unknown) (no (unknown) (unknown) Respiratory Rate (units (unknown) date) 16 15 unknown) (unknown) (no (unknown) (unknown) Respiratory Rate (units (unknown) date) 16 18 unknown) (unknown) (no (unknown) (unknown) Respiratory Rate (units (unknown) date) 16 unknown) (unknown) (no (unknown) (unknown) Result diagrams: (units (unknown) date) unknown) (unknown) (no (unknown) (unknown) Review of Systems (units (unknown) date) unknown) (unknown) (no (unknown) (unknown) SKIN: No rash, no (units (unknown) date) erythema, no unknown) pruritus (unknown) (no (unknown) (unknown) SKIN: Warm, dry, (units (unknown) date) no laceration, no unknown) petechiae, no rashes or lesions. (unknown) (no (unknown) (unknown) Signed By: (units (unk nown) date) unknown) (unknown) (no (unknown) (unknown) Sinus rhythm rate (units (unknown) date) 93 WA interval 152 unknown) QRS 116 QTC 465 Q-wave noted in inferior (unknown) (no (unknown) (unknown) Smoking Status: (units (unknown) date) Current every day unknown) smoker (unknown) (no (unknown) (unknown) Social History (units (unknown) date) (Reviewed 05/28/22 unknown) @ 23:59 by Pat Vega DO) (unknown) (no (unknown) (unknown) Sodium (137-145) (units (unknown) date) mmol/L unknown) (unknown) (no (unknown) (unknown) Sodium 137 (units (unk nown) date) (137-145) mmol/L unknown) (unknown) (no (unknown) (unknown) Source: EMS (units (un known) date) unknown) (unknown) (no (unknown) (unknown) Stated Complaint: (units (unknown) date) chest pain unknown) (unknown) (no (unknown) (unknown) Stop: 05/28/22 (units (unknown) date) 23:52 unknown) (unknown) (no (unknown) (unknown) Stop: 05/29/22 (units (unknown) date) 03:05 unknown) (unknown) (no (unknown) (unknown) Substance Use (units ( unknown) date) Type: does not use unknown) (unknown) (no (unknown) (unknown) Surgical History (units (unknown) date) (Reviewed 05/28/22 unknown) @ 23:59 by Pat Vega DO) (unknown) (no (unknown) (unknown) Surgical changes (units (unknown) date) and devices: unknown) Neurostimulator device redemonstrated in the left (unknown) (no (unknown) (unknown) TECHNIQUE: One (units (unknown) date) view of the chest unknown) was acquired. (unknown) (no (unknown) (unknown) Temperature 98.8 (units (unknown) date) F 05/28/22 23:06 unknown) (unknown) (no (unknown) (unknown) Temperature 98.8 (units (unknown) date) F unknown) (unknown) (no (unknown) (unknown) Temperature (units (un known) date) unknown) (unknown) (no (unknown) (unknown) Time Seen by (units (u nknown) date) Provider: 05/28/22 unknown) 23:39 (unknown) (no (unknown) (unknown) Total Bilirubin (units (unknown) date) (0.2-1.3) mg/dL unknown) (unknown) (no (unknown) (unknown) Total Bilirubin (units (unknown) date) 0.8 (0.2-1.3) unknown) mg/dL (unknown) (no (unknown) (unknown) Total Creatine (units (unknown) date) Kinase (55-170) unknown) U/L (unknown) (no (unknown) (unknown) Total Creatine (units (unknown) date) Kinase 37 L unknown) (55-170) U/L (unknown) (no (unknown) (unknown) Total Protein (units ( unknown) date) (6.3-8.2) g/dL unknown) (unknown) (no (unknown) (unknown) Total Protein 5.9 (units (unknown) date) L (6.3-8.2) g/dL unknown) (unknown) (no (unknown) (unknown) Trop I [Troponin (units (unknown) date) I] Stat unknown) (unknown) (no (unknown) (unknown) Troponin + CK (units ( unknown) date) Cardiac Panel Stat unknown) (unknown) (no (unknown) (unknown) Troponin I < (units (u nknown) date) 0.012 (0.01-0.034) unknown) ng/mL (unknown) (no (unknown) (unknown) Visit Report (units (u nknown) date) Forms: Patient unknown) Portal/API (unknown) (no (unknown) (unknown) Vital Signs - 8 (units (unknown) date) hr unknown) (unknown) (no (unknown) (unknown) Vital Signs (units (un known) date) unknown) (unknown) (no (unknown) (unknown) Vital signs: (units (u nknown) date) unknown) (unknown) (no (unknown) (unknown) WBC (4.5-11.0) (units (unknown) date) X103/uL unknown) (unknown) (no (unknown) (unknown) WBC 7.6 (units (unkno wn) date) (4.5-11.0) X103/uL unknown) (unknown) (no (unknown) (unknown) XR chest 1V Stat (units (unknown) date) unknown) (unknown) (no (unknown) (unknown) XRay ReportSigned (units (unknown) date) unknown) (unknown) (no (unknown) (unknown) [Embedded Image (units (unknown) date) Not Available] unknown) (unknown) (no (unknown) (unknown) a (units (unkno wn) date) unknown) (unknown) (no (unknown) (unknown) across his chest (units (unknown) date) dull achy radiates unknown) through to his back. Now he says it feels (unknown) (no (unknown) (unknown) active tobacco (units (unknown) date) smoker, multiple unknown) ED visits for atypical chest pain. His presents (unknown) (no (unknown) (unknown) alcohol intake (units (unknown) date) frequency: 0-2 unknown) drinks per day (unknown) (no (unknown) (unknown) alcohol intake: (units (unknown) date) former unknown) (unknown) (no (unknown) (unknown) any new, (units (unkno wn) date) worsening or unknown) concerning symptoms (unknown) (no (unknown) (unknown) appear (units (unkno wn) date) unknown) (unknown) (no (unknown) (unknown) aspirin 81 mg (units ( unknown) date) Tablet,Delayed unknown) Release (Dr/Ec) (unknown) (no (unknown) (unknown) aspirin 81 mg (units ( unknown) date) tablet,delayed 81 unknown) mg PO DAILY #9 tabs 03/30/22 (unknown) (no (unknown) (unknown) atorvastatin 40 (units (unknown) date) mg tablet unknown) (Lipitor) 40 mg PO DAILY #90 tabs 03/30/22 (unknown) (no (unknown) (unknown) atorvastatin (units (u nknown) date) [Lipitor] 40 mg unknown) tablet (unknown) (no (unknown) (unknown) atypical chest (units (unknown) date) pain during that unknown) stay he had an echocardiogram with an EF of 45 (unknown) (no (unknown) (unknown) can not is have a (units (unknown) date) and any more unknown) prescription pain meds he needs to be seen by his (unknown) (no (unknown) (unknown) capsule (units (unkno wn) date) unknown) (unknown) (no (unknown) (unknown) changes he has 2- (units (unknown) date) troponins. unknown) Describes his chest pain as ?numb.'At this time I (unknown) (no (unknown) (unknown) confusion (units (unkn own) date) unknown) (unknown) (no (unknown) (unknown) constipation, (units ( unknown) date) melena. unknown) (unknown) (no (unknown) (unknown) did take his (units (u nknown) date) daily aspirin. 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 (unknown) (no (unknown) (unknown) do not think (units (u nknown) date) patient's pain is unknown) related to acute coronary syndrome. At this time (unknown) (no (unknown) (unknown) effusions or (units (u nknown) date) pneumothorax. unknown) (unknown) (no (unknown) (unknown) fenofibrate (units (un known) date) micronized 134 mg unknown) 134 mg PO DAILY 11/01/20 11/01/20 (unknown) (no (unknown) (unknown) fenofibrate (units (un known) date) micronized 134 mg unknown) capsule (unknown) (no (unknown) (unknown) guarding or (units (un known) date) rebound. unknown) (unknown) (no (unknown) (unknown) has been seen (units ( unknown) date) here since. It unknown) does not sound like he took anything at home he (unknown) (no (unknown) (unknown) hemithorax. (units (un known) date) unknown) (unknown) (no (unknown) (unknown) household (units (unkn own) date) members: unknown) significant other (unknown) (no (unknown) (unknown) intact (units (unkno wn) date) unknown) (unknown) (no (unknown) (unknown) leads 2 3 and AVF (units (unknown) date) similar to unknown) previous EKG couple weeks ago no ST elevations is (unknown) (no (unknown) (unknown) losartan 25 mg (units (unknown) date) tablet 25 mg PO unknown) DAILY #90 tabs 03/30/22 (unknown) (no (unknown) (unknown) losartan 25 mg (units (unknown) date) tablet unknown) (unknown) (no (unknown) (unknown) membranes (units (unkn own) date) unknown) (unknown) (no (unknown) (unknown) metformin 500 mg (units (unknown) date) tablet 500 mg PO unknown) BID #180 tabs 03/30/22 (unknown) (no (unknown) (unknown) metformin 500 mg (units (unknown) date) tablet unknown) (unknown) (no (unknown) (unknown) metoprolol (units (unk nown) date) succinate 25 mg 25 unknown) mg PO DAILY #90 tabs 03/30/22 (unknown) (no (unknown) (unknown) metoprolol (units (unk nown) date) succinate 25 mg unknown) tablet extended release 24 hr (unknown) (no (unknown) (unknown) naproxen sodium (units (unknown) date) 220 mg capsule 220 unknown) mg PO BID 03/28/22 03/28/22 (unknown) (no (unknown) (unknown) naproxen sodium (units (unknown) date) [Aleve] 220 mg unknown) Capsule (unknown) (no (unknown) (unknown) no ST depressions (units (unknown) date) no new T-wave unknown) inversion (unknown) (no (unknown) (unknown) no need for (units (un known) date) admission. unknown) (unknown) (no (unknown) (unknown) nodular opacity (units (unknown) date) within the right unknown) upper lung zone measuring up to 1.1 cm. No (unknown) (no (unknown) (unknown) nodule. (units (unkno wn) date) unknown) (unknown) (no (unknown) (unknown) numb. He (units (unkno wn) date) described it is unknown) also kind of tightness. No difficulty breathing. Not (unknown) (no (unknown) (unknown) oxycodone 5 mg (units (unknown) date) tablet 5 mg PO Q6H unknown) PRN pain #10 tabs 05/01/22 (unknown) (no (unknown) (unknown) oxycodone 5 mg (units (unknown) date) tablet 5 mg PO unknown) Q8HR PRN Pain. #20 tabs 03/30/22 (unknown) (no (unknown) (unknown) oxycodone 5 mg (units (unknown) date) tablet unknown) (unknown) (no (unknown) (unknown) pain a few weeks (units (unknown) date) ago for the same unknown) cardiology was consulted at that time (unknown) (no (unknown) (unknown) pain (units (unkno wn) date) unknown) (unknown) (no (unknown) (unknown) pain. (units (unkno wn) date) unknown) (unknown) (no (unknown) (unknown) pantoprazole 40 (units (unknown) date) mg PO BID ##0 unknown) 11/01/20 (unknown) (no (unknown) (unknown) pantoprazole (units (u nknown) date) tablet unknown) (unknown) (no (unknown) (unknown) pleural (units (unkno wn) date) unknown) (unknown) (no (unknown) (unknown) prednisone 20 mg (units (unknown) date) tablet 40 mg PO unknown) DAILY #10 tabs 05/01/22 (unknown) (no (unknown) (unknown) prednisone 20 mg (units (unknown) date) tablet unknown) (unknown) (no (unknown) (unknown) recommend a (units (un known) date) repeat troponin. unknown) Patient is complaining of some mild back pain as (unknown) (no (unknown) (unknown) release (units (unkno wn) date) unknown) (unknown) (no (unknown) (unknown) sometimes he has (units (unknown) date) difficulty with unknown) transportation. At this time he has no EKG (unknown) (no (unknown) (unknown) stress test a (units ( unknown) date) couple months ago unknown) which was negative. He was seen again for chest (unknown) (no (unknown) (unknown) sure if this (units (u nknown) date) feels like his unknown) previous MIs. He was admitted 03/28/2022 for (unknown) (no (unknown) (unknown) tablet,extended (units (unknown) date) release 24 hr unknown) (unknown) (no (unknown) (unknown) tamsulosin 0.4 mg (units (unknown) date) capsule (Flomax) unknown) 0.4 mg PO BEDTIME #90 caps 03/30/22 (unknown) (no (unknown) (unknown) tamsulosin (units (unk nown) date) [Flomax] 0.4 mg unknown) Capsule (unknown) (no (unknown) (unknown) today with chest (units (unknown) date) pain. He says he unknown) was sitting watching TV when he felt sick all (unknown) (no (unknown) (unknown) took it 4 weeks (units (unknown) date) ago. unknown) (unknown) (no (unknown) (unknown) unremarkable. (units ( unknown) date) unknown) (unknown) (no (unknown) (unknown) well he is given (units (unknown) date) morphine and unknown) Percocet here. I have discussed with him that he Social History date description facility 2022-03-28 00:00 Smokes tobacco daily (finding) [facility] 2022-03-30 00:00 Smokes tobacco daily (finding) [facility] 2022-04-30 00:00 Smokes tobacco daily (finding) [facility] 2022-05-28 00:00 Smokes tobacco daily (finding) [facility] Vital Signs date measurement value units 2022-03-28 00:00 BP_diastolic 83 mmHg 2022-03-28 00:00 BP_systolic 157 mmHg 2022-03-28 00:00 heart_rate 97 /min 2022-03-28 00:00 height_metric 172.72 cm 2022-03-28 00:00 height_standard 68 in 2022-03-28 00:00 respiration_rate 11 /min 2022-03-28 00:00 weight_metric 81.64 kg 2022-03-28 00:00 weight_standard 179.99 lb 2022-03-30 00:00 BP_diastolic 69 mmHg 2022-03-30 00:00 BP_systolic 135 mmHg 2022-03-30 00:00 heart_rate 78 /min 2022-03-30 00:00 o2_saturation 95 % 2022-03-30 00:00 respiration_rate 18 /min 2022-03-30 00:00 temperature_metric 36.28 C 2022-03-30 00:00 temperature_standard 97.3 F 2022-04-30 00:00 BMI 27.3 kg/m2 2022-04-30 00:00 BP_diastolic 74 mmHg 2022-04-30 00:00 BP_systolic 140 mmHg 2022-04-30 00:00 heart_rate 82 /min 2022-04-30 00:00 height_metric 172.72 cm 2022-04-30 00:00 height_standard 68 in 2022-04-30 00:00 o2_saturation 92 % 2022-04-30 00:00 respiration_rate 16 /min 2022-04-30 00:00 temperature_metric 36.83 C 2022-04-30 00:00 temperature_standard 98.3 F 2022-04-30 00:00 weight_metric 81.64 kg 2022-04-30 00:00 weight_standard 179.99 lb 2022-05-01 00:00 BP_diastolic 74 mmHg 2022-05-01 00:00 BP_systolic 140 mmHg 2022-05-01 00:00 heart_rate 82 /min 2022-05-01 00:00 o2_saturation 92 % 2022-05-01 00:00 respiration_rate 16 /min 2022-05-28 00:00 BMI 25.0 kg/m2 2022-05-28 00:00 height_metric 172.72 cm 2022-05-28 00:00 height_standard 68 in 2022-05-28 00:00 temperature_metric 37.11 C 2022-05-28 00:00 temperature_standard 98.8 F 2022-05-28 00:00 weight_metric 74.84 kg 2022-05-28 00:00 weight_standard 164.99 lb 2022-05-29 00:00 BP_diastolic 65 mmHg 2022-05-29 00:00 BP_systolic 127 mmHg 2022-05-29 00:00 heart_rate 96 /min 2022-05-29 00:00 o2_saturation 95 % 2022-05-29 00:00 respiration_rate 18 /min
[2022-06-25 19:40] LABS: BASOPHILS # (AUTO) 0.1 10^3/uL (0.0-0.1); BASOPHILS % (AUTO) 1.3 %; EOSINOPHILS # (AUTO) 0.1 10^3/uL (0.0-0.7); EOSINOPHILS % (AUTO) 1.8 %; HCT - HEMATOCRIT 48.8 % (42.0-52.0); HGB - HEMOGLOBIN 16.4 g/dL (14.0-18.0); LYMPHOCYTES # (AUTO) 2.4 10^3/uL (1.5-3.5); LYMPHOCYTES % (AUTO) 29.9 %; MEAN CORPUSCULAR HEMOGLOBIN 29.4 pg (27.0-31.0); MEAN CORPUSCULAR HGB CONC 33.6 g/dL (32.0-36.0); MEAN CORPUSCULAR VOLUME 87.6 fL (80.0-94.0); MEAN PLATELET VOLUME 9.9 fL (7.4-11.4); MONOCYTES # (AUTO) 0.5 10^3/uL (0.0-1.0); NEUTROPHILS # (AUTO) 4.8 10^3/uL (1.5-6.6); NEUTROPHILS % (AUTO) 60.5 %; PLT - PLATELET COUNT 149 10^3/uL (130-450); RED BLOOD COUNT 5.57 10^6/uL (4.70-6.10); RED CELL DISTRIBUTION WIDTH 13.8 % (12.0-15.0)
[2022-06-25] MEDS ORDERED: iohexoL-300 100 ML VIAL ONE (19:42)
[2022-06-25 20:08] LABS: ALBUMIN/GLOBULIN RATIO 1.3 (1.0-2.2); BILIRUBIN,TOTAL 1.6 mg/dL (0.2-1.0); CALCIUM 9.1 mg/dL (8.5-10.3); CREATININE 0.8 mg/dL (0.6-1.2); POTASSIUM 4.2 mmol/L (3.5-5.0); TOTAL PROTEIN 7.1 g/dL (6.7-8.2)
--- NOTE | 2022-06-25 20:31 | XRAY Report ---
PROCEDURE: Chest 1 View X-Ray INDICATIONS: Chest Pain TECHNIQUE: One view of the chest was acquired. COMPARISON: 10/24/2020 FINDINGS: Surgical changes and devices: None. Lungs and pleura: The lung volumes are seen. Patchy infiltrates can be seen within the medial inferi or left lung. Mediastinum: Mediastinal contours appear normal. Heart size is normal. Bones and chest wall: No suspicious bony lesions. Age-appropriate degenerative changes are seen. Overlying soft tissues appear unremarkable. IMPRESSION: Mild infiltrate can be seen within the medial inferior left lung. Low lung volumes. Reviewed by: Mikael Coyle MD on 06/25/2022 7:30 PM [facility] Approved by: Mikael Coyle MD on 06/25/2022 7:30 PM [facility] Station ID: [id number]
--- NOTE | 2022-06-25 21:29 | CT Report ---
PROCEDURE: ANGIO ABDOMEN/PELVIS W INDICATIONS: Chest/abd pain, aorta protocol CONTRAST: 100 ML OMNI 300 TECHNIQUE: After the administration of intravenous contrast, 2.5 mm thick sections acquired from the diaphragm t o the symphysis. 10 mm maximum-intensity projection (MIP) reformats were then acquired. For radiati on dose reduction, the following was used: automated exposure control, adjustment of mA and/or kV ac cording to patient size. COMPARISON: Prior abdomen and pelvis CT examinations, 03/26/2019, 12/18/2018, 10/07/2017. Correlation i s also made with the chest CT angiogram, 06/25/2022. FINDINGS: Image quality: Excellent. Aorta: The aorta demonstrates normal caliber, without findings of aneurysm or dissection. There is m oderate mural thrombus seen distally, which is similar to 2019. Mesenteric arteries: Note is made of a common trunk of the celiac axis and the SMA, which is best dem onstrated on series 9 image 55. No stenosis of the celiac axis or the SMA can be seen. The proximal h epatic artery and splenic artery are within normal limits. The MARV is patent. Right pelvic arteries: Atherosclerotic irregularity is seen. There is at least 50% narrowing of the distal right external iliac artery. Left pelvic arteries: Atherosclerotic irregularity and calcification can be seen. There are areas of approximately 50% narrowing seen involving the distal left external iliac artery. The distal left co mmon femoral artery demonstrates an approximate 70% narrowing, as on series 5 image 159. Extravascular soft tissues: Enhancing masses can be seen involving the lingula medially. Heart size i s normal. An enlarged, fatty liver can be seen. No definite suspicious liver lesions are seen. The spleen is enlarged, measuring 15.5 cm AP. No focal splenic lesions are seen. Gallbladder wall does not appear thickened. Biliary system is non dilated. Pancreas enhances eduardo lly. No adrenal nodules. Kidneys are normal in size and enhancement. Mild right-sided hydronephrosis is seen, which appears w orse than on the prior CT. Mild right-sided hydroureter is seen distally. No cause of obstruction is seen on this study. Non opacified bowel loops are normal in wall thickness and caliber. A normal appendix is incidentally noted. Diverticulosis can be seen, without susan findings of active diverticulitis. No free fluid or air. No retroperitoneal or mesenteric adenopathy. A mild fat-containing periumbilical hernia is seen. No suspicious bony lesions. No vertebral body compression fractures. Focal L5-S1 degenerative change is seen. Milder degenerative changes are seen elsewhere. Bilateral fat-containing inguinal hernias are seen, left larger than right. IMPRESSION: Negative for aortic aneurysm or dissection. There is at least 50% narrowing can be seen involving the external iliac arteries. A focus of approxi mately 70% narrowing can be seen involving the left distal common femoral artery. There is a common trunk of the celiac axis and SMA noted, which is regarded to be a developmental stan iant. Mild right-sided hydronephrosis is seen, which is worse than on 2019. There is mild hydroureter seen distally. No cause of obstruction can be seen. Enhancing masses can be seen within the lingula. Please see the accompanying chest CT report. Additional findings: Enlarged, fatty liver Splenomegaly Fat-containing peribuccal hernia Normal appendix Diverticulosis, without findings of active diverticulitis. Focal L5-S1 degenerative change Fat-containing bilateral inguinal hernias Reviewed by: Mikael Coyle MD on 06/25/2022 8:28 PM [facility] Approved by: Mikael Coyle MD on 06/25/2022 8:28 PM [facility] Station ID: [id number]
--- NOTE | 2022-06-25 21:35 | CT Report ---
PROCEDURE: ANGIO CHEST W/WO INDICATIONS: Chest/abd pain, aorta protocol CONTRAST: 100 ML OMNI 300 TECHNIQUE: After the administration of intravenous contrast, 2 mm axial images were acquired from the pulmonary apices to the posterior costophrenic angles during the arterial phase. In addition, 1 mm lung kernel and 5 mm soft tissue kernel reconstructions were performed. 3-dimensional coronal oblique maximum int ensity projection (MIP) reformats, 8 mm axial MIP, and 5 mm coronal and sagittal MPR reformats were t hen performed through the thorax. For radiation dose reduction, the following was used: automated exp osure control, adjustment of mA and/or kV according to patient size. COMPARISON: Correlation is made with a complaint chest radiograph 06/25/2022 as well as the [facility] abdomen pelvis CT, 06/25/2022. Prior chest CT examination 12/18/2017 FINDINGS: Image quality: Excellent. Pulmonary arteries: Pulmonary arteries are normal in size, and demonstrate no intraluminal filling d efects to suggest central pulmonary embolism. Lungs and pleura: There is an enhancing nodular masses seen involving the lingula anteriorly and medi ally. This process measures nearly 7 cm AP. There is mild dependent atelectasis seen on the left. Hilda trilobular emphysematous changes are seen, which are worst superiorly. Presumed apical scarring can b e seen. A few calcified granulomas can be seen. No pleural effusions or pneumothorax. Central and pe ripheral airways are patent. Mediastinum: Heart size is normal, without pericardial effusion. Enlarged left perihilar lymph nodes are seen, which measure up to 19 x 16 mm. There is an enlarged group of subcarinal lymph nodes seen that measure 24 x 15 mm, when measured together. Additional calcified mediastinal lymph nodes are als o seen. Thoracic aorta is normal in caliber and enhancement. Esophagus is normal in caliber, without hiatal hernia. Bones and chest wall: No suspicious bony lesions. Ribs and thoracic spine appear intact throughout. Age-appropriate degenerative changes are seen. There is accentuated thoracic kyphosis. No axilla ry or supraclavicular adenopathy. The thyroid is normal in size and there are no incidental findings . Abdomen: In the upper abdomen, and enlarged, fatty liver can be seen. There is splenomegaly. IMPRESSION: Negative for pulmonary motion. No findings of aortic dissection or aortic aneurysm are detected. Nodular masses can be seen involving the anterior medial lingula, with high suspicion for neoplasm. Enlarged mediastinal lymph nodes are seen, which are suspicious for metastatic lymph nodes. These fin dings are new compared to 2018. - Please consider a dedicated PET CT for further evaluation. Underlying emphysematous changes are seen, which are worst superiorly. Additional findings: Prior granulomatous exposure. Enlarged, fatty liver Splenomegaly Reviewed by: Mikael Coyle MD on 06/25/2022 8:34 PM [facility] Approved by: Mikael Coyle MD on 06/25/2022 8:34 PM [facility] Station ID: [id number]
[2022-06-25] MEDS ORDERED: oxyCODONE/ACET 5/325 Prepack 4 PO STA (21:57)
[2022-06-25 22:07] VITALS: BP 153/94
[2022-06-25] MEDS ORDERED: iohexoL-300 100 ML VIAL IVP ONE (22:34)
== END 2022-06-25 22:16 | disposition home or self-care (01) ==
LOC: ED 19:03
DX: R07.89 Other chest pain (principal); D49.1 Neoplasm of unspecified behavior of respiratory system; R59.0 Localized enlarged lymph nodes; I73.9 Peripheral vascular disease, unspecified; N13.30 Unspecified hydronephrosis; F17.200 Nicotine dependence, unspecified, uncomplicated
CPT/HCPCS: 36415; 71045; 71275; 74174; 80053; 83690; 84484; 85025; 93005; 96374; 99284; J1170; Q9967

== ENCOUNTER 2022-07-23 16:32 | Emergency (ER) | payer MEDICARE, MEDICAID ==
[2022-07-23 16:45] VITALS: BP 137/87
[2022-07-23] MEDS ORDERED: HYDROmorphone 1 MG/ML CARPUJECT IM STA (16:49)
[2022-07-23] MEDS ORDERED: HYDROcod/ACETAM 5/325 MG TABLET PO STA (16:49)
--- NOTE | 2022-07-23 17:11 | ED Physician Documentation ---
History of Present Illness - Stated complaint Stated Complaint: NECK PX/L LEG PX - Chief complaint Chief Complaint: General - History obtained from History obtained from: Patient - Additonal information Additional information: The patient comes to the emergency department with chief complaint of ongoing neck and left-sided pain. He states that although he was seen here several weeks ago and diagnosed with metastatic cancer to the chest of unknown primary, he has not followed up with anybody since. He has had ongoing pain in his neck and left side and was seen at [facility] recently and had MRI done there, but does not know the results. He thinks they may be written in his discharge papers from there. The patient denies any loss of function. No numbness, tingling, or weakness. He states the main thing that is bothering him is the pain. He denies any recent trauma. 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 When asked how he gets his groceries or other essentials, he states that his girlfriend drives him. The patient denies any fevers or chills. No difficulty breathing. No vomiting. He has had chronic low abdominal pain and a chronic rash on his feet, both of which are unchanged. No other complaints at this time. Review of Systems Constitutional: reports: Reviewed and negative Eyes: reports: Reviewed and negative Ears: reports: Reviewed and negative Nose: reports: Reviewed and negative Throat: reports: Reviewed and negative Cardiac: reports: Reviewed and negative Respiratory: reports: Reviewed and negative GI: reports: Abdominal Pain : reports: Reviewed and negative Skin: reports: Reviewed and negative Musculoskeletal: reports: Neck pain, Extremity pain (Left arm and leg) Neurologic: reports: Reviewed and negative Psychiatric: reports: Reviewed and negative Endocrine: reports: Reviewed and negative Immunocompromised: reports: Reviewed and negative PD PAST MEDICAL HISTORY - Past Medical History Cardiovascular: Hypertension, High cholesterol, Coronary artery disease, [place] Respiratory: Sleep apnea Endocrine/Autoimmune: None GI: GERD : None HEENT: None Psych: None Musculoskeletal: Chronic back pain Derm: None - Past Surgical History Past Surgical History: Yes Ortho: Spine surgery Cardiovascular: Coronary stent - Present Medications Home Medications: Ambulatory Orders Medication Instructions Recorded Confirmed Aspirin EC [Ecotrin] 81 mg PO DAILY #30 tablet 09/21/20 10/24/20 Atorvastatin [Lipitor] 40 mg PO QPM #30 tablet 09/21/20 10/24/20 Blood Sugar Diagnostic [Glucose 1 each MC DAILY #30 strip 09/21/20 10/24/20 Test Strip] Blood-Glucose Meter [Glucometer] 1 each MC DAILY #1 each 09/21/20 10/24/20 Fenofibrate [Tricor] 134 mg PO DAILY #30 tablet 09/21/20 10/24/20 Lancets 1 each MC DAILY #30 each 09/21/20 10/24/20 Metoprolol Succinate [Toprol Xl] 25 mg PO DAILY #30 tablet 09/21/20 10/24/20 metFORMIN [Glucophage] 500 mg PO BIDWM #60 tablet 09/21/20 10/24/20 oxyCODONE [Roxicodone] 5 mg PO Q8HR PRN #20 tablet 09/21/20 10/24/20 Pantoprazole [Protonix] 40 mg PO DAILY #14 tablet 09/22/20 10/24/20 Oxycodone HCl/Acetaminophen 1 - 2 each PO Q6H PRN #20 tablet 06/25/22 [Percocet 5-325 mg Tablet] HYDROcod/ACETAM 5/325 [[place] 5/325] 1 - 2 tablet PO Q6H PRN #14 tablet 07/23/22 - Allergies Allergies/Adverse Reactions: Allergies Allergy/AdvReac Type Severity Reaction Status Date / Time No Known Drug Allergies Allergy Verified 07/23/22 16:45 - Social History Does the pt smoke?: Yes Smoking Status: Current every day smoker Does the pt drink ETOH?: No Does the pt have substance abuse?: No - Immunizations Immunizations are current?: No Immunizations: TDAP >10years/unknown - POLST Patient has POLST: No PD ED PE NORMAL - Vitals Vital signs reviewed: Yes - General General: Alert and oriented X 3, No acute distress, Well developed/nourished - HEENT HEENT: Atraumatic, PERRL, EOMI, Moist mucous membranes - Neck Neck: Supple, no meningeal sign, No adenopathy, Other (No masses over left lateral neck where patient indicates his pain is. No trauma.) - Cardiac Cardiac: RRR, No murmur, Strong equal pulses - Respiratory Respiratory: No respiratory distress, Clear bilaterally - Abdomen Abdomen: Soft, Non distended, Other (Moderate tenderness over bilateral lower quadrants and suprapubic region.) - Derm Derm: Normal color, Warm and dry, No rash - Extremities Extremities: No deformity, No edema - Neuro Neuro: Alert and oriented X 3 - Psych Psych: Normal mood, Normal affect Results - Vitals Vitals: Vital Signs - 24 hr 07/23/22 16:38 Temperature 36.4 C L Heart Rate 106 H Respiratory 20 Rate Blood Pressure 137/87 H O2 Saturation 98 Oxygen O2 Source Room air PD Medical Decision Making - ED course Complexity details: reviewed old records, considered differential, d/w patient ED course: I reviewed the patient's extensive results from his last visit here. The patient had CT angiograms of the chest abdomen and pelvis, which showed metastatic disease in his chest, but you no obvious primary source. The abdominal CT was unremarkable. I discussed with the patient that I would treat his pain here, but it is up to take him to go get his medications and follow-up with primary care. I have discussed with him that if his girlfriend can drive him to get groceries, she should be able to drive him to the doctor's office and pharmacy, as well. I cannot do anything more to arrange care for the patient if he is unwilling to go on his own. I will represcribe his medications and I have rereferred him to primary care. He is urged to get the follow-up he needs as soon as possible to preserve his health. We discussed the usual indications for return. Departure - Departure Disposition: Home, Self Care Clinical Impression: Neck pain Condition: Stable Instructions: ED Neck Pain No Trauma Follow-Up: Ese Monae ARNP [Credentialed Staff Provider] - Prescriptions: HYDROcod/ACETAM 5/325 [[place] 5/325] 1 - 2 tablet PO Q6H PRN #14 tablet PRN Reason: Pain Comments: It is very important that you follow-up with primary care as soon as possible to try to get to the bottom of the cancerous appearing findings on your chest CT. This must be prioritized, and if you can make it to the grocery store, you can certainly make it to see your doctor in follow-up. A prescription has been retransmitted to Your pharmacy of choice on record, which is the [facility] in [place]. Once again, if you wish to have pain control at home, you will need to prioritize getting to the pharmacy. Perhaps you can link this up with a trip to the grocery store. You have been treated with narcotic pain medication here in the emergency department. You should not drive for the next 6 to 8 hours as these medications can make you drowsy. There is no further testing to be done in the emergency department, advanced you have already had extensive testing here and at [facility] over the last month.
--- OUTSIDE RECORDS SUMMARY | 2022-07-23 17:37 | EXTERNAL MEDICAL SUMMARY RPT | Continuity of Care Document ---
:1955 Author Organization [facility] Address [address] [place] [address] Phone Care Team Providers Name Role Phone Unavailable Unavailable Unavailable Fausto Padgett Unavailable Unavailable Allergies and Intolerances date description facility type (no date) No Known Drug Allergies [facility] (unkn own) Encounters No information. Functional Status No information. Immunizations No information. Medications date description facility 2022-05-01 00:00 Oxycodone [facility] 2022-04-30 00:00 Prednisone [facility] 2022-05-01 00:00 [facility] Problems date description facility 2022-04-30 00:00 Left lumbar radiculopathy [facility] 2022-05-01 00:00 Left lumbar radiculopathy [facility] 2022-06-03 23:45 Chest pain, unspecified [facility] Procedures date description facility 2022-04-30 00:00 X-ray of chest, single view [facility] 2022-05-28 00:00 X-ray of chest, single view [facility] Results/Labs test date author facility value unit interpret ation Result panel 1 (unknown) (no date) ([facility] Result panel 2 (unknown) (no date) (unknown[facility]) Result panel 3 (unknown) (no date) (unknown[facility]) Result panel 4 (unknown) (no date) (unknown[facility]) Result panel 5 (unknown) (no date) (unknown[facility]) Result panel 6 (unknown) (no date) (unknown[facility]) Result panel 7 (unknown) (no date) (unknown[facility]) Result panel 8 (unknown) (no date) (unknown[facility]) Result panel 9 (unknown) (no date) (unknown[facility] unknown) Result panel 323 (unknown) (no (unknown) (unknown) (no value) (units [...] (unknown) (unknown) : 1955 (units (unknown) date) Acct:[id number] unknown) (unknown) (no (unknown) (unknown) Date of [...] date) (Reviewed unknown) 03/28/22 @ 21:52 by Van Padron MD) (unknown) (no (unknown) (unknown) Father (units (unknown) date) Lung cancer unknown) (unknown) (no (unknown) (unknown) General (units (unkno wn) date) unknown) (unknown) (no (unknown) (unknown) H/O heart (units (unkn own) date) artery stent unknown) (unknown) (no (unknown) (unknown) HPI - Chest (units (un known) date) Pain unknown) (unknown) (no (unknown) (unknown) Home (units (unkno wn) date) Medications unknown) (unknown) (no (unknown) (unknown) [facility] (units (unknown) date) [address] [place] [address] unknown) [place] [address] (unknown) (no (unknown) (unknown) Label Comments: (units (unknown) date) unknown) (unknown) (no (unknown) (unknown) Medical History (units (unknown) date) (Reviewed unknown) 03/28/22 @ 21:52 by Van Padron MD) (unknown) (no (unknown) (unknown) Medication (units [...] (unkno wn) date) Aquilino Chanvan unknown) MR#: [id number] (unknown) (no (unknown) (unknown) Prescriptions: (units (unknown) [...] 25 mg PO unknown) DAILY #90 tabs 10/04/22 (unknown) (no (unknown) (unknown) losartan 25 mg [...] (units (unknown) date) ago. unknown) Result panel 324 (unknown) (no (unknown) (unknown) (no value) (units (unk nown) date) unknown) (unknown) (no (unknown) (unknown) 04/30/22 (units (unkno wn) date) unknown) (unknown) (no (unknown) (unknown) [address] [facility] (units (unknown) date) unknown) (unknown) (no (unknown) (unknown) [address] (units (unkno wn) date) unknown) (unknown) (no (unknown) (unknown) 23:01. [facility] (units ( unknown) date) unknown) (unknown) (no (unknown) (unknown) Accession Number: (units (unknown) date) [id number] unknown) (unknown) (no (unknown) (unknown) Age/Sex: 66 / M (units (unknown) date) Date of Service: unknown) (unknown) (no (unknown) (unknown) [place], [place] (units ( unknown) date) [address] unknown) (unknown) (no (unknown) (unknown) Approved by: (units (u nknown) date) jovon Mancuso M.D. on 04/30/2022 at 19:20 (unknown) (no (unknown) (unknown) Bones and chest (units (unknown) date) wall: No unknown) suspicious bony lesions. Age-appropriate bony (unknown) (no (unknown) (unknown) COMPARISON: (units (un known) date) [facility], unknown) CT, CT ANGIO CHEST PE PROTOCOL, 03/28/2022, (unknown) (no (unknown) (unknown) : 1955 (units (unknown) date) Acct:[id number] unknown) (unknown) (no (unknown) (unknown) Dictated by: [...] chest pain unknown) (unknown) (no (unknown) (unknown) [facility] (units (unknown) date) unknown) (unknown) (no [...] (units (unkno wn) date) unknown) Result panel 325 (unknown) (no date) (unknown) (unknown) 13.4 % [...] (unknown) 86.9 fl (unkn own) Result panel 326 (unknown) (no date) (unknown) (unknown) > 60 [...] not ng/ml (unkn own) performed Result panel 327 (unknown) (no date) (unknown) (unknown) > 60 [...] not ng/ml (unkn own) performed Result panel 328 (unknown) (no (unknown) (unknown) (no value) (units [...] (unknown) Blood Pressure (units (unknown) date) 98/68 / unknown) (unknown) (no (unknown) (unknown) Blood Pressure [...] (unknown) (unknown) : 1955 (units (unknown) date) Acct:[id number] unknown) (unknown) (no (unknown) (unknown) Date of [...] date) Signs: unknown) (unknown) (no (unknown) (unknown) [facility] (units (unknown) date) [address] unknown) [place] [address] (unknown) (no (unknown) (unknown) Lab Data (units [...] Lymph # (Auto) (units (unknown) date) 2900 (6296-9189) unknown) /uL (unknown) (no (unknown) (unknown) Lymph [...] date) EMS unknown) (unknown) (no (unknown) (unknown) Josephine # (Auto) 800 (units (unknown) date) (0-900) /uL unknown) (unknown) (no (unknown) (unknown) Josephine % (Auto) 8.9 (units (unknown) date) (3-14) [...] # (Auto) (units ( unknown) date) 4500 (3274-0665) unknown) /uL (unknown) (no (unknown) (unknown) Neut [...] (o wn) date) Frank Chan MR#: unknown) [id number] (unknown) (no (unknown) (unknown) Plt Count 159 [...] no cord compression or stenosis Result panel 329 (unknown) (no (unknown) (unknown) (no value) (units [...] (unknown) date) unknown) (unknown) (no (unknown) (unknown) Blood [...] (unknown) (unknown) : 1955 (units (unknown) date) Acct:[id number] unknown) (unknown) (no (unknown) (unknown) Date of [...] (Reviewed 04/30/22 unknown) @ 19:35 by Emma C Mank, DO) (unknown) (no (unknown) (unknown) Father (units [...] (unknown) date) unknown) (unknown) (no (unknown) (unknown) [facility] (units (unknown) date) [address] unknown) [place] [address] (unknown) (no (unknown) (unknown) Lab Data (units [...] Lymph # (Auto) (units (unknown) date) 2900 (8526-5289) unknown) /uL (unknown) (no (unknown) (unknown) Lymph [...] date) EMS unknown) (unknown) (no (unknown) (unknown) Josephine # (Auto) 800 (units (unknown) date) (0-900) /uL unknown) (unknown) (no (unknown) (unknown) Joseph[place] % (Auto) 8.9 (units (unknown) date) (3-14) [...] # (Auto) (units ( unknown) date) 4500 (9758-1362) unknown) /uL (unknown) (no (unknown) (unknown) Neut [...] (o wn) date) Frank Chan MR#: unknown) [id number] (unknown) (no (unknown) (unknown) Plt Count 159 [...] no cord compression or stenosis Result panel 330 (unknown) (no date) (unknown) (unknown) 133 mg/dl (unkn own) (unknown) (no date) (unknown) (unknown) 133 mg/dl (unkn own) Result panel 331 (unknown) (no date) (unknown) (unknown) <=1.005 (units [...] YELLOW (units (unkn own) unknown) Result panel 332 (unknown) (no date) (unknown) (unknown) 246 pg/ml (unkn own) (unknown) (no date) (unknown) (unknown) 246 pg/ml (unkn own) Result panel 333 (unknown) (no (unknown) (unknown) (no value) (units [...] (unknown) (unknown) : 1955 (units (unknown) date) Acct:[id number] unknown) (unknown) (no (unknown) (unknown) Date of [...] (unknown) date) unknown) (unknown) (no (unknown) (unknown) [facility] (units (unknown) date) [address] unknown) [place] [address] (unknown) (no (unknown) (unknown) Lab Data (units [...] Lymph # (Auto) (units (unknown) date) 2900 (9649-0959) unknown) /uL (unknown) (no (unknown) (unknown) Lymph [...] date) EMS unknown) (unknown) (no (unknown) (unknown) Josephine # (Auto) 800 (units (unknown) date) (0-900) /uL unknown) (unknown) (no (unknown) (unknown) Josephine % (Auto) 8.9 (units (unknown) date) (3-14) [...] # (Auto) (units ( unknown) date) 4500 (1123-6476) unknown) /uL (unknown) (no (unknown) (unknown) Neut [...] (unkno wn) date) Frank Chan MR#: unknown) [id number] (unknown) (no (unknown) (unknown) Plt Count 159 [...] no cord compression or stenosis Result panel 334 (unknown) (no date) (unknown) (unknown) Flu A (units (unkn own) NEGATIVE unknown) (unknown) (no date) (unknown) (unknown) Flu B (units (unkn own) NEGATIVE unknown) (unknown) (no date) (unknown) (unknown) Negative (units (unkn own) unknown) (unknown) (no date) (unknown) (unknown) Negative (units (unkn own) unknown) Result panel 335 (unknown) (no date) (unknown) (unknown) <=1.005 (units [...] YELLOW (units (unkn own) unknown) Result panel 336 (unknown) (no date) (unknown) (unknown) 0.013 ng/ml (unkn own) (unknown) (no date) (unknown) (unknown) 0.013 ng/ml (unkn own) Result panel 337 (unknown) (no (unknown) (unknown) (no value) (units [...] (unknown) (unknown) : 1955 (units (unknown) date) Acct:[id number] unknown) (unknown) (no (unknown) (unknown) Date of [...] date) (Reviewed 04/30/22 unknown) @ 19:35 by mEma Stevens DO) (unknown) (no (unknown) (unknown) Father [...] (unknown) date) unknown) (unknown) (no (unknown) (unknown) [facility] (units (unknown) date) [address] [place] [address] unknown) [place] [address] (unknown) (no (unknown) (unknown) Lab Data (units [...] (unknown) Lymph # (Auto) (units (unknown) date) (0365-3053) /uL unknown) (unknown) (no (unknown) (unknown) Lymph # (Auto) (units (unknown) date) 2900 (9660-4783) unknown) /uL (unknown) (no (unknown) (unknown) Lymph [...] date) EMS unknown) (unknown) (no (unknown) (unknown) Josephine # (Auto) (units ( unknown) date) (0-900) /uL unknown) (unknown) (no (unknown) (unknown) Josephine # (Auto) 800 (units (unknown) date) (0-900) /uL unknown) (unknown) (no (unknown) (unknown) Josephine % (Auto) (units ( unknown) date) (3-14) % unknown) (unknown) (no (unknown) (unknown) Josephine % (Auto) 8.9 (units (unknown) date) (3-14) [...] Neut # (Auto) (units ( unknown) date) (3578-7478) /uL unknown) (unknown) (no (unknown) (unknown) Neut # (Auto) (units ( unknown) date) 4500 (4912-8455) unknown) /uL (unknown) (no (unknown) (unknown) Neut [...] (unkno wn) date) Frank Chan MR#: unknown) [id number] (unknown) (no (unknown) (unknown) Plt Count (units [...] (unknown) Ur Specific (units (un known) date) [place] <=1.005 unknown) (1.000-1.035) (unknown) (no (unknown) (unknown) Ur Specific (units (un known) date) [place] unknown) (1.000-1.035) (unknown) (no (unknown) (unknown) Urine [...] PO unknown) Q8HR PRN Pain. #20 tabs 10/04/22 (unknown) (no (unknown) (unknown) oxycodone 5 mg [...] no cord compression or stenosis Result panel 338 (unknown) (no (unknown) (unknown) (no value) (units [...] (unknown) (unknown) Accession Number: (units (unknown) date) [id number] ?? unknown) (unknown) (no (unknown) (unknown) Acct:[id number] (units (unknown) date) unknown) (unknown) (no (unknown) [...] (unknown) [place] [place] (units ( unknown) date) [address] unknown) (unknown) (no (unknown) (unknown) Approved by: [...] (unknown) (unknown) COMPARISON:? (units (u nknown) date) [facility], unknown) CT, CT ANGIO CHEST PE [...] (unknown) (unknown) : 1955 (units (unknown) date) Acct:[id number] unknown) (unknown) (no (unknown) (unknown) : 1955 [...] (unknown) date) unknown) (unknown) (no (unknown) (unknown) [facility] (units (unknown) date) [address] unknown) [place] [address] (unknown) (no (unknown) (unknown) [facility] (units (unknown) date) unknown) (unknown) (no [...] (unknown) Lymph # (Auto) (units (unknown) date) (7728-0780) /uL unknown) (unknown) (no (unknown) (unknown) Lymph # (Auto) (units (unknown) date) 2900 (5443-6488) unknown) /uL (unknown) (no (unknown) (unknown) Lymph [...] date) unknown) (unknown) (no (unknown) (unknown) MR#: [id number] (units (unknown) date) unknown) (unknown) (no (unknown) [...] date) EMS unknown) (unknown) (no (unknown) (unknown) Josephine # (Auto) (units ( unknown) date) (0-900) /uL unknown) (unknown) (no (unknown) (unknown) Josephine # (Auto) 800 (units (unknown) date) (0-900) /uL unknown) (unknown) (no (unknown) (unknown) [place] % (Auto) (units ( unknown) date) (3-14) % unknown) (unknown) (no (unknown) (unknown) Josephine % (Auto) 8.9 (units (unknown) date) (3-14) [...] Neut # (Auto) (units ( unknown) date) (1106-1050) /uL unknown) (unknown) (no (unknown) (unknown) Neut # (Auto) (units ( unknown) date) 4500 (4869-8147) unknown) /uL (unknown) (no (unknown) (unknown) Neut [...] (unknown) (unknown) Patient: (units (unkno wn) date) Chuy,Frank MR#: unknown) [id number] (unknown) (no (unknown) (unknown) Patient: (units (unkno [...] (unknown) Ur Specific (units (un known) date) [place] <=1.005 unknown) (1.000-1.035) (unknown) (no (unknown) (unknown) Ur Specific (units (un known) date) [place] unknown) (1.000-1.035) (unknown) (no (unknown) (unknown) Urine [...] no cord compression or stenosis Result panel 339 (unknown) (no (unknown) (unknown) (no value) (units [...] 90 0RF unknown) (unknown) (no (unknown) (unknown) 8247 (units (unkno wn) date) unknown) (unknown) (no [...] (unknown) (unknown) Accession Number: (units (unknown) date) [id number] ?? unknown) (unknown) (no (unknown) (unknown) Acct:[id number] (units (unknown) date) unknown) (unknown) (no (unknown) [...] Date / Time (unknown) (no (unknown) (unknown) [place], [place] (units ( unknown) date) [address] unknown) (unknown) (no (unknown) (unknown) Approved by: (units (u nknown) date) Mikael Coyle, jovon Fuentes on 04/30/2022 at 19:20?? (unknown) (no [...] (unknown) (unknown) COMPARISON:? (units (u nknown) date) [facility], unknown) CT, CT ANGIO CHEST PE [...] (unknown) (unknown) : 1955 (units (unknown) date) Acct:[id number] unknown) (unknown) (no (unknown) (unknown) : 1955 [...] (unknown) date) unknown) (unknown) (no (unknown) (unknown) [facility] (units (unknown) date) [address] unknown) [place] [address] (unknown) (no (unknown) (unknown) [facility] (units (unknown) date) unknown) (unknown) (no [...] (unknown) Lymph # (Auto) (units (unknown) date) (4268-1662) /uL unknown) (unknown) (no (unknown) (unknown) Lymph # (Auto) (units (unknown) date) 2900 (8644-7874) unknown) /uL (unknown) (no (unknown) (unknown) Lymph [...] date) unknown) (unknown) (no (unknown) (unknown) MR#: [id number] (units (unknown) date) unknown) (unknown) (no (unknown) [...] date) EMS unknown) (unknown) (no (unknown) (unknown) Josephine # (Auto) (units ( unknown) date) (0-900) /uL unknown) (unknown) (no (unknown) (unknown) Josephine # (Auto) 800 (units (unknown) date) (0-900) /uL unknown) (unknown) (no (unknown) (unknown) Joseph[place] % (Auto) (units ( unknown) date) (3-14) % unknown) (unknown) (no (unknown) (unknown) Joseph[place] % (Auto) 8.9 (units (unknown) date) (3-14) [...] Neut # (Auto) (units ( unknown) date) (6648-0654) /uL unknown) (unknown) (no (unknown) (unknown) Neut # (Auto) (units ( unknown) date) 4500 (2143-1639) unknown) /uL (unknown) (no (unknown) (unknown) Neut [...] (unkno wn) date) Frank Chan MR#: unknown) [id number] (unknown) (no (unknown) (unknown) Patient: (units (unkno [...] (unknown) Ur Specific (units (un known) date) [place] <=1.005 unknown) (1.000-1.035) (unknown) (no (unknown) (unknown) Ur Specific (units (un known) date) [place] unknown) (1.000-1.035) (unknown) (no (unknown) (unknown) Urine [...] no cord compression or stenosis Result panel 340 (unknown) (no (unknown) (unknown) (no value) (units [...] (unknown) (unknown) Accession Number: (units (unknown) date) [id number] ?? unknown) (unknown) (no (unknown) (unknown) Acct:[id number] (units (unknown) date) unknown) (unknown) (no (unknown) [...] (unknown) [place] [place] (units ( unknown) date) [address] unknown) (unknown) (no (unknown) (unknown) Approved by: [...] (unknown) (unknown) COMPARISON:? (units (u nknown) date) [facility], unknown) CT, CT ANGIO CHEST PE [...] (unknown) (unknown) : 1955 (units (unknown) date) Acct:[id number] unknown) (unknown) (no (unknown) (unknown) : 1955 [...] (unknown) date) unknown) (unknown) (no (unknown) (unknown) [facility] (units (unknown) date) [address] unknown) [place] [address] (unknown) (no (unknown) (unknown) [facility] (units (unknown) date) unknown) (unknown) (no [...] (unknown) Lymph # (Auto) (units (unknown) date) (6047-3925) /uL unknown) (unknown) (no (unknown) (unknown) Lymph # (Auto) (units (unknown) date) 2900 (9148-9259) unknown) /uL (unknown) (no (unknown) (unknown) Lymph [...] date) unknown) (unknown) (no (unknown) (unknown) MR#: [id number] (units (unknown) date) unknown) (unknown) (no (unknown) [...] date) EMS unknown) (unknown) (no (unknown) (unknown) Josephine # (Auto) (units ( unknown) date) (0-900) /uL unknown) (unknown) (no (unknown) (unknown) Josephine # (Auto) 800 (units (unknown) date) (0-900) /uL unknown) (unknown) (no (unknown) (unknown) Joseph[place] % (Auto) (units ( unknown) date) (3-14) % unknown) (unknown) (no (unknown) (unknown) Joseph[place] % (Auto) 8.9 (units (unknown) date) (3-14) [...] Neut # (Auto) (units ( unknown) date) (5417-4331) /uL unknown) (unknown) (no (unknown) (unknown) Neut # (Auto) (units ( unknown) date) 4500 (2909-4516) unknown) /uL (unknown) (no (unknown) (unknown) Neut [...] (unkno wn) date) Frank Chan MR#: unknown) [id number] (unknown) (no (unknown) (unknown) Patient: (units (unkno [...] (unknown) Ur Specific (units (un known) date) [place] <=1.005 unknown) (1.000-1.035) (unknown) (no (unknown) (unknown) Ur Specific (units (un known) date) [place] unknown) (1.000-1.035) (unknown) (no (unknown) (unknown) Urine [...] no cord compression or stenosis Result panel 341 (unknown) (no date) (unknown) (unknown) < 0.012 ng/ml (unkn own) (unknown) (no date) (unknown) (unknown) < 0.012 ng/ml (unkn own) Result panel 342 (unknown) (no (unknown) (unknown) (no value) (units [...] (unknown) (unknown) Accession Number: (units (unknown) date) [id number] ?? unknown) (unknown) (no (unknown) (unknown) Acct:[id number] (units (unknown) date) unknown) (unknown) (no (unknown) [...] Date / Time (unknown) (no (unknown) ([place]units ( unknown) [place] [address] unknown) (unknown) (no (unknown) (unknown) Approved by: (units (u nknown) date) Mikael Coyle, jovon Fuentes on 04/30/2022 at 19:20?? (unknown) (no [...] (unknown) (unknown) COMPARISON:? (units (u nknown) date) [facility], unknown) CT, CT ANGIO CHEST PE [...] (unknown) (unknown) : 1955 (units (unknown) date) Acct:[id number] unknown) (unknown) (no (unknown) (unknown) : 1955 [...] also spoke with (units (unknown) date) the design inserter, unknown) they recommend follow-up outpatient but you [...] (unknown) date) unknown) (unknown) (no (unknown) (unknown) [facility] (units (unknown) date) [address] unknown) [place] [address] (unknown) (no (unknown) (unknown) [facility] (units (unknown) date) unknown) (unknown) (no [...] (unknown) Lymph # (Auto) (units (unknown) date) (8885-8730) /uL unknown) (unknown) (no (unknown) (unknown) Lymph # (Auto) (units (unknown) date) 2900 (3583-5299) unknown) /uL (unknown) (no (unknown) (unknown) Lymph [...] date) unknown) (unknown) (no (unknown) (unknown) MR#: [id number] (units (unknown) date) unknown) (unknown) (no (unknown) [...] date) EMS unknown) (unknown) (no (unknown) (unknown) Josephine # (Auto) (units ( unknown) date) (0-900) /uL unknown) (unknown) (no (unknown) (unknown) Josephine # (Auto) 800 (units (unknown) date) (0-900) /uL unknown) (unknown) (no (unknown) (unknown) [place] % (Auto) (units ( unknown) date) (3-14) % unknown) (unknown) (no (unknown) (unknown) Josephine % (Auto) 8.9 (units (unknown) date) (3-14) [...] Neut # (Auto) (units ( unknown) date) (2359-3998) /uL unknown) (unknown) (no (unknown) (unknown) Neut # (Auto) (units ( unknown) date) 4500 (0450-2834) unknown) /uL (unknown) (no (unknown) (unknown) Neut [...] (unkno wn) date) Frank Chan MR#: unknown) [id number] (unknown) (no (unknown) (unknown) Patient: (units (unkno [...] (unknown) Prescription sent (units (unknown) date) to [facility] [place]. (unknown) (no (unknown) (unknown) Prescriptions: (units (unknown) [...] (unknown) Ur Specific (units (un known) date) [place] <=1.005 unknown) (1.000-1.035) (unknown) (no (unknown) (unknown) Ur Specific (units (un known) date) [place] unknown) (1.000-1.035) (unknown) (no (unknown) (unknown) Urine [...] (units ( unknown) date) from today and unknown) Porter from [facility]opedic surgery recommends (unknown) [...] no cord compression or stenosis Result panel 343 (unknown) (no (unknown) (unknown) (no value) (units [...] date) unknown) (unknown) (no (unknown) (unknown) [address] [facility] (units (unknown) date) unknown) (unknown) (no [...] 90 0RF unknown) (unknown) (no (unknown) (unknown) 7047 (units (unkno wn) date) unknown) (unknown) (no [...] (unknown) (unknown) Accession Number: (units (unknown) date) [id number] ?? unknown) (unknown) (no (unknown) (unknown) Acct:[id number] (units (unknown) date) unknown) (unknown) (no (unknown) [...] (unknown) [facility] [place] (units ( unknown) date) [address] unknown) (unknown) (no (unknown) (unknown) Approved by: [...] (unknown) (unknown) COMPARISON:? (units (u nknown) date) [facility], unknown) CT, CT ANGIO CHEST PE [...] (unknown) (unknown) : 1955 (units (unknown) date) Acct:[id number] unknown) (unknown) (no (unknown) (unknown) : 1955 [...] (unknown) (unknown) Documented By: (units (unknown) date) [facility] unknown) (unknown) (no (unknown) (unknown) Documented By: [...] also spoke with (units (unknown) date) the design inserter, unknown) they recommend follow-up outpatient but you [...] (unknown) date) unknown) (unknown) (no (unknown) (unknown) [facility] (units (unknown) date) [address] unknown) [place] [address] (unknown) (no (unknown) (unknown) [facility] (units (unknown) date) unknown) (unknown) (no [...] (unknown) Lymph # (Auto) (units (unknown) date) (7185-3786) /uL unknown) (unknown) (no (unknown) (unknown) Lymph # (Auto) (units (unknown) date) 2900 (6996-8612) unknown) /uL (unknown) (no (unknown) (unknown) Lymph [...] date) unknown) (unknown) (no (unknown) (unknown) MR#: [id number] (units (unknown) date) unknown) (unknown) (no (unknown) [...] (no (unknown) (unknown) Miscellaneous,Doc (units (unknown) date) tor, MD [Primary unknown) Care Provider] (unknown) (no (unknown) (unknown) Mode of arrival: (units (unknown) date) EMS unknown) (unknown) (no (unknown) (unknown) [place] # (Auto) (units ( unknown) date) (0-900) /uL unknown) (unknown) (no (unknown) (unknown) Joseph[place] # (Auto) 800 (units (unknown) date) (0-900) /uL unknown) (unknown) (no (unknown) (unknown) Joseph[place] % (Auto) (units ( unknown) date) (3-14) % unknown) (unknown) (no (unknown) (unknown) Joseph[place] % (Auto) 8.9 (units (unknown) date) (3-14) [...] Neut # (Auto) (units ( unknown) date) (5567-1912) /uL unknown) (unknown) (no (unknown) (unknown) Neut # (Auto) (units ( unknown) date) 4500 (6069-9292) unknown) /uL (unknown) (no (unknown) (unknown) Neut [...] (unkno wn) date) Frank Chan MR#: unknown) [id number] (unknown) (no (unknown) (unknown) Patient: (units (unkno [...] (unknown) Prescription sent (units (unknown) date) [facility] unknown) [facility] [place]. (unknown) (no (unknown) (unknown) Prescriptions: (units (unknown) [...] (unknown) Ur Specific (units (un known) date) [place] <=1.005 unknown) (1.000-1.035) (unknown) (no (unknown) (unknown) Ur Specific (units (un known) date) [place] unknown) (1.000-1.035) (unknown) (no (unknown) (unknown) Urine [...] (units ( unknown) date) from today and unknown) Porter from orthopedic surgery recommends steroi [...] better unknown) prior to discharge. Result panel 344 (unknown) (no (unknown) (unknown) (no value) (units (unk nown) date) unknown) (unknown) (no (unknown) (unknown) 1. No acute (units (un known) date) cardiopulmonary unknown) disease. (unknown) (no (unknown) (unknown) 05/28/22 (units (unkno wn) date) unknown) (unknown) (no (unknown) (unknown) [address] [place] [address] (units (unknown) date) unknown) (unknown) (no (unknown) (unknown) [id number] (units (unkno wn) date) unknown) (unknown) (no (unknown) (unknown) Accession Number: (units (unknown) date) [id number] unknown) (unknown) (no (unknown) (unknown) Age/Sex: 66 / M (units (unknown) date) Date of Service: unknown) (unknown) (no (unknown) (unknown) [place], [place] (units ( unknown) date) [address] unknown) (unknown) (no (unknown) (unknown) Approved by: (units (u nknown) date) Donavon Fonseca, callie) Gina on 05/29/2022 at 0:31 (unknown) (no (unknown) (unknown) Bones and chest (units (unknown) date) wall: No unknown) suspicious bony lesions. Overlying soft tissues (unknown) (no (unknown) (unknown) COMPARISON: (units (un known) date) [facility], unknown) CR, XR CHEST 1V, 04/30/2022, 19:18. (unknown) (no (unknown) (unknown) : 1955 (units (unknown) date) Acct:[id number] unknown) (unknown) (no (unknown) (unknown) Dictated by: (units (u nknown) date) Donavon Fonseca, callie) Gina on 05/29/2022 at 0:31 (unknown) (no (unknown) (unknown) FINDINGS: (units (unkn own) date) unknown) (unknown) (no (unknown) (unknown) IMPRESSION: (units (un known) date) unknown) (unknown) (no (unknown) (unknown) INDICATIONS: (units (u nknown) date) chest pain unknown) (unknown) (no (unknown) (unknown) [facility] (units (unknown) date) unknown) (unknown) (no [...] (units ( unknown) date) unknown) Result panel 345 (unknown) (no date) (unknown) (unknown) 0 /ul [...] (unknown) 87.8 fl (unkn own) Result panel 346 (unknown) (no (unknown) (unknown) (no value) (units [...] (unknown) (unknown) : 1955 (units (unknown) date) Acct:[id number] unknown) (unknown) (no (unknown) (unknown) Date of [...] (unknown) ER Physician: (units ( unknown) date) Pta Vega unknown) D.O. (unknown) (no (unknown) (unknown) [...] date) Signs: unknown) (unknown) (no (unknown) (unknown) [facility] (units (unknown) date) [address] unknown) [place] [address] (unknown) (no (unknown) (unknown) Lab Data (units [...] Lymph # (Auto) (units (unknown) date) 2400 (1696-2608) unknown) /uL (unknown) (no (unknown) (unknown) Lymph [...] date) EMS unknown) (unknown) (no (unknown) (unknown) Josephine # (Auto) (units ( unknown) date) 600 (0-900) /uL unknown) (unknown) (no (unknown) (unknown) Josephine % (Auto) (units ( unknown) date) 8.3 (3-14) % unknown) (unknown) (no (unknown) (unknown) [facility] (units (unknown) date) history unknown unknown) (unknown) (no (unknown) (unknown) Neut # (Auto) (units ( unknown) date) 4300 (4693-0234) unknown) /uL (unknown) (no (unknown) (unknown) Neut [...] (unkno wn) date) Frank Chan MR#: unknown) [id number] (unknown) (no (unknown) (unknown) Plt Count 137 [...] (Lipitor) 40 mg PO DAILY #90 tabs 10/04/22 (unknown) (no (unknown) (unknown) atorvastatin (units (u [...] PO unknown) Q8HR PRN Pain. #20 tabs 10/04/22 (unknown) (no (unknown) (unknown) oxycodone 5 mg [...] (units (unknown) date) ago. unknown) Result panel 347 (unknown) (no date) (unknown) (unknown) 1.1 (units unknown) (unknown) (unknown) (no date) (unknown) (unknown) 12.4 seconds (unkn own) (unknown) (no date) (unknown) (unknown) 29 seconds (unkn own) (unknown) (no date) (unknown) (unknown) 29 seconds (unkn own) Result panel 348 (unknown) (no (unknown) (unknown) (no value) (units [...] (unknown) (unknown) : 1955 (units (unknown) date) Acct:[id number] unknown) (unknown) (no (unknown) (unknown) Date of [...] date) Signs: unknown) (unknown) (no (unknown) (unknown) [facility] (units (unknown) date) [address] unknown) [place] [address] (unknown) (no (unknown) (unknown) Lab Data (units [...] Lymph # (Auto) (units (unknown) date) 2400 (6119-4171) unknown) /uL (unknown) (no (unknown) (unknown) Lymph [...] date) EMS unknown) (unknown) (no (unknown) (unknown) Josephine # (Auto) (units ( unknown) date) 600 (0-900) /uL unknown) (unknown) (no (unknown) (unknown) Josephine % (Auto) (units ( unknown) date) 8.3 (3-14) % unknown) (unknown) (no (unknown) (unknown) Morphine Sulfate (units (unknown) date) (Morphine 4 Mg/Ml unknown) Inj) 4 mg IV NOW ONE (unknown) (no (unknown) (unknown) [facility] (units (unknown) date) history unknown unknown) (unknown) (no (unknown) (unknown) Neut # (Auto) (units ( unknown) date) 4300 (9300-3302) unknown) /uL (unknown) (no (unknown) (unknown) Neut [...] (unkno wn) date) Frank Chan MR#: unknown) [id number] (unknown) (no (unknown) (unknown) Plt Count 137 [...] (units (unknown) date) ago. unknown) Result panel 349 (unknown) (no (unknown) (unknown) (no value) (units [...] (unknown) (unknown) : 1955 (units (unknown) date) Acct:[id number] unknown) (unknown) (no (unknown) (unknown) Date of [...] (unknown) date) unknown) (unknown) (no (unknown) (unknown) [facility] (units (unknown) date) [address] unknown) [place] [address] (unknown) (no (unknown) (unknown) Lab Data (units [...] Lymph # (Auto) (units (unknown) date) 2400 (8767-8939) unknown) /uL (unknown) (no (unknown) (unknown) Lymph [...] date) EMS unknown) (unknown) (no (unknown) (unknown) Josephine # (Auto) 600 (units (unknown) date) (0-900) /uL unknown) (unknown) (no (unknown) (unknown) Josephine % (Auto) 8.3 (units (unknown) date) (3-14) [...] # (Auto) (units ( unknown) date) 4300 (6541-3223) unknown) /uL (unknown) (no (unknown) (unknown) Neut [...] (unkno wn) date) Frank Chan MR#: unknown) [id number] (unknown) (no (unknown) (unknown) Plt Count 137 [...] Sinus rhythm rate (units (unknown) date) 93 [place] interval 152 unknown) QRS 116 QTC 465 [...] reports that he does not have a design inserter. (unknown) (no (unknown) (unknown) fenofibrate (units (un [...] (units (unknown) date) ago. unknown) Result panel 350 (unknown) (no date) (unknown) (unknown) > 60 [...] not ng/ml (unkn own) performed Result panel 351 (unknown) (no date) (unknown) (unknown) > 60 [...] not ng/ml (unkn own) performed Result panel 352 (unknown) (no date) (unknown) (unknown) 174 mg/dl (unkn own) (unknown) (no date) (unknown) (unknown) 174 mg/dl (unkn own) Result panel 353 (unknown) (no date) (unknown) (unknown) < 0.012 ng/ml (unkn own) (unknown) (no date) (unknown) (unknown) < 0.012 ng/ml (unkn own) Result panel 354 (unknown) (no (unknown) (unknown) (no value) (units [...] (unknown) (unknown) : 1955 (units (unknown) date) Acct:[id number] unknown) (unknown) (no (unknown) (unknown) Date of [...] (unknown) date) unknown) (unknown) (no (unknown) (unknown) [facility] (units (unknown) date) [address] unknown) [place] [address] (unknown) (no (unknown) (unknown) Lab Data (units [...] (unknown) Lymph # (Auto) (units (unknown) date) (4914-7806) /uL unknown) (unknown) (no (unknown) (unknown) Lymph # (Auto) (units (unknown) date) 2400 (5233-0116) unknown) /uL (unknown) (no (unknown) (unknown) Lymph [...] date) EMS unknown) (unknown) (no (unknown) (unknown) Josephine # (Auto) (units ( unknown) date) (0-900) /uL unknown) (unknown) (no (unknown) (unknown) Josephine # (Auto) 600 (units (unknown) date) (0-900) /uL unknown) (unknown) (no (unknown) (unknown) Josephine % (Auto) (units ( unknown) date) (3-14) % unknown) (unknown) (no (unknown) (unknown) Josephine % (Auto) 8.3 (units (unknown) date) (3-14) [...] Neut # (Auto) (units ( unknown) date) (5397-1530) /uL unknown) (unknown) (no (unknown) (unknown) Neut # (Auto) (units ( unknown) date) 4300 (1005-4346) unknown) /uL (unknown) (no (unknown) (unknown) Neut [...] (unkno wn) date) Frank Chan MR#: unknown) [id number] (unknown) (no (unknown) (unknown) Plt Count (units [...] Sinus rhythm rate (units (unknown) date) 93 [place] interval 152 unknown) QRS 116 QTC 465 [...] reports that he does not have a design inserter. (unknown) (no (unknown) (unknown) fenofibrate (units (un [...] (units (unknown) date) ago. unknown) Result panel 355 (unknown) (no (unknown) (unknown) (no value) (units (unk nown) date) unknown) (unknown) (no (unknown) (unknown) ([place]ve) (units (unkno wn) date) unknown) (unknown) (no (unknown) (unknown) *Continue to take (units (unknown) date) medications as unknown) directed (unknown) (no (unknown) (unknown) *Follow up with (units (unknown) date) your primary care unknown) provider in 2-3 days or call [phone] (unknown) (no (unknown) (unknown) *Return to ER [...] (unknown) (unknown) : 1955 (units (unknown) date) Acct:[id number] unknown) (unknown) (no (unknown) (unknown) Date of [...] (unknown) ER Physician: (units ( unknown) date) Pta Vega unknown) D.O. (unknown) (no (unknown) (unknown) [...] (unknown) date) unknown) (unknown) (no (unknown) (unknown) [facility] (units (unknown) date) [address] unknown) [place] [address] (unknown) (no (unknown) (unknown) Lab Data (units [...] (unknown) Lymph # (Auto) (units (unknown) date) (9226-1277) /uL unknown) (unknown) (no (unknown) (unknown) Lymph # (Auto) (units (unknown) date) 2400 (2862-4838) unknown) /uL (unknown) (no (unknown) (unknown) Lymph [...] date) EMS unknown) (unknown) (no (unknown) (unknown) Josephine # (Auto) (units ( unknown) date) (0-900) /uL unknown) (unknown) (no (unknown) (unknown) Josephine # (Auto) 600 (units (unknown) date) (0-900) /uL unknown) (unknown) (no (unknown) (unknown) Josephine % (Auto) (units ( unknown) date) (3-14) % unknown) (unknown) (no (unknown) (unknown) Josephine % (Auto) 8.3 (units (unknown) date) (3-14) [...] Neut # (Auto) (units ( unknown) date) (1998-9786) /uL unknown) (unknown) (no (unknown) (unknown) Neut # (Auto) (units ( unknown) date) 4300 (4092-3579) unknown) /uL (unknown) (no (unknown) (unknown) Neut [...] (unkno wn) date) Frank Chan MR#: unknown) [id number] (unknown) (no (unknown) (unknown) Plt Count (units [...] Sinus rhythm rate (units (unknown) date) 93 [place] interval 152 unknown) QRS 116 QTC 465 [...] reports that he does not have a design inserter. (unknown) (no (unknown) (unknown) fenofibrate (units (un [...] (units (unknown) date) ago. unknown) Result panel 356 (unknown) (no (unknown) (unknown) (no value) (units [...] unknown) provider in 2-3 days or call [phone] (unknown) (no (unknown) (unknown) *Return to ER [...] of (units (unk nown) date) Service: unknown) 05/28/22Loc: EDAccession Number: [id number] (unknown) (no (unknown) (unknown) 0.4 mg PO [...] (unknown) (unknown) COMPARISON: (units (un known) date) [facility], unknown) CR, XR CHEST 1V, 09/08/2021, [...] (unknown) (unknown) : 1955 (units (unknown) date) Acct:[id number] unknown) (unknown) (no (unknown) (unknown) Date of [...] (unknown) date) unknown) (unknown) (no (unknown) (unknown) [facility] (units (unknown) date) [address] [place] [address] unknown) [place] [address] (unknown) (no (unknown) (unknown) Lab Data (units [...] (unknown) Lymph # (Auto) (units (unknown) date) (7986-2873) /uL unknown) (unknown) (no (unknown) (unknown) Lymph # (Auto) (units (unknown) date) 2400 (9886-3872) unknown) /uL (unknown) (no (unknown) (unknown) Lymph [...] date) EMS unknown) (unknown) (no (unknown) (unknown) Josephine # (Auto) (units ( unknown) date) (0-900) /uL unknown) (unknown) (no (unknown) (unknown) Josephine # (Auto) 600 (units (unknown) date) (0-900) /uL unknown) (unknown) (no (unknown) (unknown) Josephine % (Auto) (units ( unknown) date) (3-14) % unknown) (unknown) (no (unknown) (unknown) Josephine % (Auto) 8.3 (units (unknown) date) (3-14) [...] Neut # (Auto) (units ( unknown) date) (0065-7818) /uL unknown) (unknown) (no (unknown) (unknown) Neut # (Auto) (units ( unknown) date) 4300 (7767-0006) unknown) /uL (unknown) (no (unknown) (unknown) Neut [...] encouraged that he needs to see a design inserter. He says (unknown) (no (unknown) (unknown) PROCEDURE: [...] (unkno wn) date) John Amador unknown) R#: [id number]: 7Acct:[id number]/Sex: 75 (unknown) (no (unknown) (unknown) Patient: (units (unkno wn) date) Frank Chan MR#: unknown) [id number] (unknown) (no (unknown) (unknown) Plt Count (units [...] Sinus rhythm rate (units (unknown) date) 93 [place] interval 152 unknown) QRS 116 QTC 465 [...] reports that he does not have a design inserter. (unknown) (no (unknown) (unknown) do not think [...] that he Social History date description facility 2022-04-30 00:00 Smokes tobacco daily (finding) [facility] 2022-05-28 00:00 Smokes tobacco daily (finding) [facility] Vital Signs date measurement value units 2022-04-30 00:00 BMI 27.3 kg/m2 2022-04-30 00:00 [...]
== END 2022-07-23 17:46 | disposition home or self-care (01) ==
LOC: EDUNIT# → ED 16:32
DX: M54.2 Cervicalgia (principal); C79.89 Secondary malignant neoplasm of other specified sites; F17.200 Nicotine dependence, unspecified, uncomplicated
CPT/HCPCS: 96372; 99283; A9270; J1170

== ENCOUNTER 2022-08-22 18:00 | Outpatient (CLI) | payer MEDICARE, MEDICAID | END 2022-08-22 23:59 | disposition critical access hospital (66) | LOC: EMS 18:00 | DX: R07.9 Chest pain, unspecified (principal); M25.512 Pain in left shoulder; R00.0 Tachycardia, unspecified | CPT/HCPCS: A0425; A0427 ==

== ENCOUNTER 2022-08-22 18:18 | Emergency (ER) | payer MEDICARE, MEDICAID ==
--- OUTSIDE RECORDS SUMMARY | 2022-08-22 18:47 | EXTERNAL MEDICAL SUMMARY RPT | Continuity of Care Document ---
:1955 Author Organization [facility] Address [address] [place] [address] Phone Care Team Providers Name Role Phone Unavailable Unavailable Unavailable Fausto Padgett Unavailable Unavailable Allergies and Intolerances date description facility type (no date) No Known Drug Allergies [facility] (unkn own) Encounters No information. Functional Status No information. Immunizations No information. Medications No information. Problems date description facility 2022-06-03 23:45 Chest pain, unspecified [facility] 2022-08-06 00:00 Hyperlipidemia [facility] 2022-08-06 00:00 Benign essential hypertension [facility] 2022-08-06 00:00 Heartburn [facility] 2022-08-06 09:02 Chest pain, unspecified [facility] Procedures date description facility 2022-05-28 00:00 X-ray of chest, single view [facility] Results/Labs test date author facility [...] Result panel 267 (unknown) (no date) (unknown) [facility] ([facility] unknown) Result panel 268 (unknown) (no date) (unknown) [facility] unknown) Result panel 269 (unknown) (no date) (unknown) [facility] unknown) Result panel 270 (unknown) (no (unknown) (unknown) (no value) (units (unk nown) date) unknown) (unknown) (no (unknown) (unknown) 1. No acute (units (un known) date) cardiopulmonary unknown) disease. (unknown) (no (unknown) (unknown) 05/28/22 (units (unkno wn) date) unknown) (unknown) (no (unknown) (unknown) [address] [place] [address] (units (unknown) date) unknown) (unknown) (no (unknown) (unknown) [id number] (units (unkno wn) date) unknown) (unknown) (no (unknown) (unknown) Accession Number: (units (unknown) date) [id number] unknown) (unknown) (no (unknown) (unknown) Age/Sex: 66 / M (units (unknown) date) Date of Service: unknown) (unknown) (no (unknown) (unknown) [place], [place] (units ( unknown) date) [id number] unknown) (unknown) (no (unknown) (unknown) Approved by: (units (u nknown) date) Donavon Fonseca unknown) Gina on 05/29/2022 at 0:31 (unknown) (no (unknown) (unknown) Bones and chest (units (unknown) date) wall: No unknown) suspicious bony lesions. Overlying soft tissues (unknown) (no (unknown) (unknown) COMPARISON: (units (un known) date) [facility], unknown) CR, XR CHEST 1V, 04/30/2022, 19:18. (unknown) (no (unknown) (unknown) : 1955 (units (unknown) date) Acct:[id number] unknown) (unknown) (no (unknown) (unknown) Dictated by: (units (u nknown) date) Donavon Fonseca, callie) Gina on 05/29/2022 at 0:31 (unknown) (no (unknown) (unknown) FINDINGS: (units (unkn own) date) unknown) (unknown) (no (unknown) (unknown) IMPRESSION: (units (un known) date) unknown) (unknown) (no (unknown) (unknown) INDICATIONS: (units (u nknown) date) chest pain unknown) (unknown) (no (unknown) (unknown) [facility] (units (unknown) date) unknown) (unknown) (no [...] (unknown) (unknown) Patient: (units (unkno wn) date) Frakn Chan MR#: unknown) [id number] (unknown) (no (unknown) [...] (units ( unknown) date) unknown) Result panel 271 (unknown) (no date) (unknown) (unknown) 0 /ul [...] (unknown) 87.8 fl (unkn own) Result panel 272 (unknown) (no (unknown) (unknown) (no value) (units [...] (unknown) (unknown) : 1955 (units (unknown) date) Acct:[id number] unknown) (unknown) (no (unknown) (unknown) Date of [...] date) Signs: unknown) (unknown) (no (unknown) (unknown) [facility] (units (unknown) date) [address] unknown) [place] [address] (unknown) (no (unknown) (unknown) Lab Data (units [...] Lymph # (Auto) (units (unknown) date) 2400 (9068-9533) unknown) /uL (unknown) (no (unknown) (unknown) Lymph [...] date) EMS unknown) (unknown) (no (unknown) (unknown) Jay # (Auto) (units ( unknown) date) 600 (0-900) /uL unknown) (unknown) (no (unknown) (unknown) Jay % (Auto) (units ( unknown) date) 8.3 (3-14) % unknown) (unknown) (no (unknown) (unknown) [facility] (units (unknown) date) history unknown unknown) (unknown) (no (unknown) (unknown) Neut # (Auto) (units ( unknown) date) 4300 (7136-8206) unknown) /uL (unknown) (no (unknown) (unknown) Neut [...] (unknown) (unknown) Patient: (units (unkno wn) date) ChuyRen bradshawtvan MR#: unknown) [id number] (unknown) (no (unknown) (unknown) Plt Count 137 [...] (units (unknown) date) ago. unknown) Result panel 273 (unknown) (no date) (unknown) (unknown) 1.1 (units unknown) (unknown) (unknown) (no date) (unknown) (unknown) 12.4 seconds (unkn own) (unknown) (no date) (unknown) (unknown) 29 seconds (unkn own) (unknown) (no date) (unknown) (unknown) 29 seconds (unkn own) Result panel 274 (unknown) (no (unknown) (unknown) (no value) (units [...] (unknown) (unknown) : 1955 (units (unknown) date) Acct:[id number] unknown) (unknown) (no (unknown) (unknown) Date of [...] date) Signs: unknown) (unknown) (no (unknown) (unknown) [facility] (units (unknown) date) [address] unknown) [place] [address] (unknown) (no (unknown) (unknown) Lab Data (units [...] Lymph # (Auto) (units (unknown) date) 2400 (9222-5737) unknown) /uL (unknown) (no (unknown) (unknown) Lymph [...] date) EMS unknown) (unknown) (no (unknown) (unknown) Jay # (Auto) (units ( unknown) date) 600 (0-900) /uL unknown) (unknown) (no (unknown) (unknown) Jay % (Auto) (units ( unknown) date) 8.3 (3-14) % unknown) (unknown) (no (unknown) (unknown) Morphine Sulfate (units (unknown) date) (Morphine 4 Mg/Ml unknown) Inj) 4 mg IV NOW ONE (unknown) (no (unknown) (unknown) [facility] (units (unknown) date) history unknown unknown) (unknown) (no (unknown) (unknown) Neut # (Auto) (units ( unknown) date) 4300 (2682-6598) unknown) /uL (unknown) (no (unknown) (unknown) Neut [...] (unkno wn) date) Frank Chan MR#: unknown) [id number] (unknown) (no (unknown) (unknown) Plt Count 137 [...] (units (unknown) date) ago. unknown) Result panel 275 (unknown) (no (unknown) (unknown) (no value) (units [...] (unknown) (unknown) : 1955 (units (unknown) date) Acct:[id number] unknown) (unknown) (no (unknown) (unknown) Date of [...] (unknown) date) unknown) (unknown) (no (unknown) (unknown) [facility] (units (unknown) date) [address] unknown) [place] [address] (unknown) (no (unknown) (unknown) Lab Data (units [...] Lymph # (Auto) (units (unknown) date) 2400 (9154-5941) unknown) /uL (unknown) (no (unknown) (unknown) Lymph [...] date) EMS unknown) (unknown) (no (unknown) (unknown) Jay # (Auto) 600 (units (unknown) date) (0-900) /uL unknown) (unknown) (no (unknown) (unknown) Jay % (Auto) 8.3 (units (unknown) date) (3-14) [...] # (Auto) (units ( unknown) date) 4300 (0794-7816) unknown) /uL (unknown) (no (unknown) (unknown) Neut [...] (unkno wn) date) Frank Chan MR#: unknown) [id number] (unknown) (no (unknown) (unknown) Plt Count 137 [...] Sinus rhythm rate (units (unknown) date) 93 IN interval 152 unknown) QRS 116 QTC 465 [...] reports that he does not have a document reviewer. (unknown) (no (unknown) (unknown) fenofibrate (units (un [...] (units (unknown) date) ago. unknown) Result panel 276 (unknown) (no date) (unknown) (unknown) > 60 [...] not ng/ml (unkn own) performed Result panel 277 (unknown) (no date) (unknown) (unknown) > 60 [...] not ng/ml (unkn own) performed Result panel 278 (unknown) (no date) (unknown) (unknown) 174 mg/dl (unkn own) (unknown) (no date) (unknown) (unknown) 174 mg/dl (unkn own) Result panel 279 (unknown) (no date) (unknown) (unknown) < 0.012 ng/ml (unkn own) (unknown) (no date) (unknown) (unknown) < 0.012 ng/ml (unkn own) Result panel 280 (unknown) (no (unknown) (unknown) (no value) (units [...] (unknown) (unknown) : 1955 (units (unknown) date) Acct:[id number] unknown) (unknown) (no (unknown) (unknown) Date of [...] (unknown) date) unknown) (unknown) (no (unknown) (unknown) [facility] (units (unknown) date) [address] unknown) [place] [address] (unknown) (no (unknown) (unknown) Lab Data (units [...] (unknown) Lymph # (Auto) (units (unknown) date) (9159-1036) /uL unknown) (unknown) (no (unknown) (unknown) Lymph # (Auto) (units (unknown) date) 2400 (2896-4126) unknown) /uL (unknown) (no (unknown) (unknown) Lymph [...] date) EMS unknown) (unknown) (no (unknown) (unknown) Jay # (Auto) (units ( unknown) date) (0-900) /uL unknown) (unknown) (no (unknown) (unknown) Jay # (Auto) 600 (units (unknown) date) (0-900) /uL unknown) (unknown) (no (unknown) (unknown) Jay % (Auto) (units ( unknown) date) (3-14) % unknown) (unknown) (no (unknown) (unknown) Jay % (Auto) 8.3 (units (unknown) date) (3-14) [...] Neut # (Auto) (units ( unknown) date) (0034-2750) /uL unknown) (unknown) (no (unknown) (unknown) Neut # (Auto) (units ( unknown) date) 4300 (2747-5256) unknown) /uL (unknown) (no (unknown) (unknown) Neut [...] (unkno wn) date) Frank Chan MR#: unknown) [id number] (unknown) (no (unknown) (unknown) Plt Count (units [...] Sinus rhythm rate (units (unknown) date) 93 IN interval 152 unknown) QRS 116 QTC 465 [...] reports that he does not have a document reviewer. (unknown) (no (unknown) (unknown) fenofibrate (units (un [...] (units (unknown) date) ago. unknown) Result panel 281 (unknown) (no (unknown) (unknown) (no value) (units (unk nown) date) unknown) (unknown) (no (unknown) (unknown) (Aleve) (units (unkno wn) date) unknown) (unknown) (no (unknown) (unknown) *Continue to take (units (unknown) date) medications as unknown) directed (unknown) (no (unknown) (unknown) *Follow up with (units (unknown) date) your primary care unknown) provider in 2-3 days or call [phone] (unknown) (no (unknown) (unknown) *Return to ER [...] (unknown) (unknown) : 1955 (units (unknown) date) Acct:[id number] unknown) (unknown) (no (unknown) (unknown) Date of [...] (unknown) date) unknown) (unknown) (no (unknown) (unknown) [facility] (units (unknown) date) [address] unknown) [place] [address] (unknown) (no (unknown) (unknown) Lab Data (units [...] (unknown) Lymph # (Auto) (units (unknown) date) (0932-7283) /uL unknown) (unknown) (no (unknown) (unknown) Lymph # (Auto) (units (unknown) date) 2400 (7062-9906) unknown) /uL (unknown) (no (unknown) (unknown) Lymph [...] date) EMS unknown) (unknown) (no (unknown) (unknown) Jay # (Auto) (units ( unknown) date) (0-900) /uL unknown) (unknown) (no (unknown) (unknown) Jay # (Auto) 600 (units (unknown) date) (0-900) /uL unknown) (unknown) (no (unknown) (unknown) Jay % (Auto) (units ( unknown) date) (3-14) % unknown) (unknown) (no (unknown) (unknown) Jay % (Auto) 8.3 (units (unknown) date) (3-14) [...] Neut # (Auto) (units ( unknown) date) (7826-8504) /uL unknown) (unknown) (no (unknown) (unknown) Neut # (Auto) (units ( unknown) date) 4300 (4687-8577) unknown) /uL (unknown) (no (unknown) (unknown) Neut [...] (unkno wn) date) Frank Chan MR#: unknown) [id number] (unknown) (no (unknown) (unknown) Plt Count (units [...] Sinus rhythm rate (units (unknown) date) 93 IN interval 152 unknown) QRS 116 QTC 465 [...] reports that he does not have a document reviewer. (unknown) (no (unknown) (unknown) fenofibrate (units (un [...] (units (unknown) date) ago. unknown) Result panel 282 (unknown) (no (unknown) (unknown) (no value) (units (unk nown) date) unknown) (unknown) (no (unknown) (unknown) <Electronically (units (unknown) date) signed by Pat Vega D.O.> (unknown) (no (unknown) (unknown) (Aleve) (units (unkno wn) date) unknown) (unknown) (no (unknown) (unknown) *Continue to take (units (unknown) date) medications as unknown) directed (unknown) (no (unknown) (unknown) *Follow up with (units (unknown) date) your primary care unknown) provider in 2-3 days or call [phone] (unknown) (no (unknown) (unknown) *Return to ER [...] nown) date) Service: unknown) 05/28/22Loc: EDAccession Number: [id number] (unknown) (no (unknown) (unknown) 0.4 mg PO [...] (unknown) (unknown) COMPARISON: (units (un known) date) [facility], unknown) CR, XR CHEST 1V, 09/08/2021, [...] (unknown) (unknown) : 1955 (units (unknown) date) Acct:[id number] unknown) (unknown) (no (unknown) (unknown) Date of Service: (units (unknown) date) 05/28/22 unknown) (unknown) (no (unknown) (unknown) Departure (units (unkn own) date) unknown) (unknown) (no (unknown) (unknown) Diabetes type 2, (units (unknown) date) uncontrolled unknown) (unknown) (no (unknown) (unknown) Dictated by: (units (u nknown) date) Donavon Fonseca, unknownAna Fuentes on 05/28/2022 at 22:59 (unknown) (no (unknown) [...] (unknown) date) unknown) (unknown) (no (unknown) (unknown) [facility] (units (unknown) date) [address] [place] [address] unknown) [place] [address] (unknown) (no (unknown) (unknown) Lab Data (units [...] (unknown) Lymph # (Auto) (units (unknown) date) (8876-3130) /uL unknown) (unknown) (no (unknown) (unknown) Lymph # (Auto) (units (unknown) date) 2400 (9958-4139) unknown) /uL (unknown) (no (unknown) (unknown) Lymph [...] date) EMS unknown) (unknown) (no (unknown) (unknown) Jay # (Auto) (units ( unknown) date) (0-900) /uL unknown) (unknown) (no (unknown) (unknown) Jay # (Auto) 600 (units (unknown) date) (0-900) /uL unknown) (unknown) (no (unknown) (unknown) Jay % (Auto) (units ( unknown) date) (3-14) % unknown) (unknown) (no (unknown) (unknown) Jay % (Auto) 8.3 (units (unknown) date) (3-14) [...] Neut # (Auto) (units ( unknown) date) (6303-4592) /uL unknown) (unknown) (no (unknown) (unknown) Neut # (Auto) (units ( unknown) date) 4300 (3424-0285) unknown) /uL (unknown) (no (unknown) (unknown) Neut [...] encouraged that he needs to see a document reviewer. He says (unknown) (no (unknown) (unknown) PROCEDURE: [...] (unknown) Patient: (units (unkno wn) date) John Aamdor unknown) R#: [id number]: 7Acct:[id number]/Sex: 75 (unknown) (no (unknown) (unknown) Patient: (units (unkno wn) date) Frank Chan MR#: unknown) [id number] (unknown) (no (unknown) (unknown) Plt Count (units [...] Sinus rhythm rate (units (unknown) date) 93 IN interval 152 unknown) QRS 116 QTC 465 [...] reports that he does not have a document reviewer. (unknown) (no (unknown) (unknown) do not think [...] I have discussed with him that he Result panel 283 (unknown) (no (unknown) (unknown) (no value) (units (unk nown) date) unknown) (unknown) (no (unknown) (unknown) 08/02/22 (units (unkno wn) date) unknown) (unknown) (no (unknown) (unknown) 2847 (units (unkno wn) date) unknown) (unknown) (no (unknown) (unknown) 66 year old male (units (unknown) date) presents to unknown) clinic for several concerns. (unknown) (no (unknown) (unknown) Age/Sex: 66 / M (units (unknown) date) Date of Service: unknown) (unknown) (no (unknown) (unknown) Allergies (units (unkn own) date) unknown) (unknown) (no (unknown) (unknown) [facility] (units ( unknown) date) [address] unknown) (unknown) (no (unknown) (unknown) Attending Dr: (units ( unknown) date) Eduardo Singletary D.O. unknown) (unknown) (no (unknown) (unknown) Coronary artery (units (unknown) date) disease unknown) (unknown) (no (unknown) (unknown) : 1955 (units (unknown) date) Acct:[id number] unknown) (unknown) (no (unknown) (unknown) Dept at (units (unkno wn) date) . unknown) (unknown) (no (unknown) (unknown) Diabetes type 2, (units (unknown) date) uncontrolled unknown) (unknown) (no (unknown) (unknown) Documented By: (units (unknown) date) Eduardo Singletary unknown) 08/06/22 0900 (unknown) (no (unknown) (unknown) Draft (units (unkno wn) date) unknown) (unknown) (no (unknown) (unknown) Elevated blood (units (unknown) date) alcohol level unknown) (unknown) (no (unknown) (unknown) Family History (units (unknown) date) (Reviewed unknown) 05/28/22 @ 23:59 by Pat Vega DO) (unknown) (no (unknown) (unknown) Family Practice (units (unknown) date) Office Visit unknown) (unknown) (no (unknown) (unknown) Father (units (unknown) date) Lung cancer unknown) (unknown) (no (unknown) (unknown) [facility] ([facility] unknown) (unknown) (no (unknown) (unknown) H/O heart artery (units (unknown) date) stent unknown) (unknown) (no (unknown) (unknown) Health (units (unkno wn) date) Management unknown) reviewed with patient: Yes (unknown) (no (unknown) (unknown) Health (units (unkno wn) date) Management unknown) (unknown) (no (unknown) (unknown) Intake Note: (units (u nknown) date) unknown) (unknown) (no (unknown) (unknown) Intake performed (units (unknown) date) by: Rebeka Cordoba unknown) (unknown) (no (unknown) (unknown) Intake (units (unkno wn) date) unknown) (unknown) (no (unknown) (unknown) Intake- Clincial (units (unknown) date) Staff unknown) (unknown) (no (unknown) (unknown) Loc: [facility] (units (unkno wn) date) unknown) (unknown) (no (unknown) (unknown) Medical History (units (unknown) date) (Reviewed unknown) 05/28/22 @ 23:59 by Pat Vega DO) (unknown) (no (unknown) (unknown) [facility] (units (unknown) date) history unknown unknown) (unknown) (no (unknown) (unknown) No Known Drug (units ( unknown) date) Allergies Allergy unknown) (Verified 08/06/22 09:01) (unknown) (no (unknown) (unknown) PFSH (units (unkno wn) date) unknown) (unknown) (no (unknown) (unknown) Patient: (units (unkno wn) date) Aquilino Chanvan MR#: unknown) [id number] (unknown) (no (unknown) (unknown) Reason For Visit (units (unknown) date) unknown) (unknown) (no (unknown) (unknown) Signed By: (units (unk nown) date) unknown) (unknown) (no (unknown) (unknown) Smoking Status: (units (unknown) date) Current every day unknown) smoker (unknown) (no (unknown) (unknown) Social History (units (unknown) date) unknown) (unknown) (no (unknown) (unknown) Surgical History (units (unknown) date) (Reviewed unknown) 05/28/22 @ 23:59 by Pat Vega DO) (unknown) (no (unknown) (unknown) This note may (units ( unknown) date) have been all or unknown) partially generated using voice recognition (unknown) (no (unknown) (unknown) Tobacco + (units (unkn own) date) Substance Use unknown) (unknown) (no (unknown) (unknown) Tobacco Status (units (unknown) date) unknown) (unknown) (no (unknown) (unknown) Visit Reasons: (units (unknown) date) [employer] Hx of unknown) cancer,coronary artery disease, diabetes (unknown) (no (unknown) (unknown) alcohol intake: (units (unknown) date) former unknown) (unknown) (no (unknown) (unknown) have occurred. (units (unknown) date) If there are any unknown) questions, please contact the Medical Records (unknown) (no (unknown) (unknown) household (units (unkn own) date) members: unknown) significant other (unknown) (no (unknown) (unknown) may occur. (units (unk nown) date) Occasional unknown) wrong-word or 'sound-alike' substitutions may have (unknown) (no (unknown) (unknown) occurred due to (units (unknown) date) the inherent unknown) limitations of voice recognition software. Please (unknown) (no (unknown) (unknown) read the note (units ( unknown) date) carefully and unknown) recognize, using context, where these substitutions (unknown) (no (unknown) (unknown) software. (units (unkn own) date) Although every unknown) 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, ancillary services manager therapy errors Result panel 284 (unknown) (no (unknown) (unknown) (no value) (units (unk nown) date) unknown) (unknown) (no (unknown) (unknown) 08/02/22 (units (unkno wn) date) unknown) (unknown) (no (unknown) (unknown) 08/06/22 (units (unkno wn) date) unknown) (unknown) (no (unknown) (unknown) 09:06 (units (unkno wn) date) unknown) (unknown) (no (unknown) (unknown) 2847 (units (unkno wn) date) unknown) (unknown) (no (unknown) (unknown) 66 year old male (units (unknown) date) presents to unknown) clinic for several concerns. (unknown) (no (unknown) (unknown) Age/Sex: 66 / M (units (unknown) date) Date of Service: unknown) (unknown) (no (unknown) (unknown) Allergies (units (unkn own) date) unknown) (unknown) (no (unknown) (unknown) [facility] [place] (units ( unknown) date) [id number] unknown) (unknown) (no (unknown) (unknown) Attending Dr: (units ( unknown) date) Eduardo Singletary D.O. unknown) (unknown) (no (unknown) (unknown) BP 160/90 H (units (un known) date) unknown) (unknown) (no (unknown) (unknown) Blood Pressure (units (unknown) date) Location Lt unknown) brachial (unknown) (no (unknown) (unknown) Coronary artery (units (unknown) date) disease unknown) (unknown) (no (unknown) (unknown) : 1955 (units (unknown) date) Acct:[id number] unknown) (unknown) (no (unknown) (unknown) Dept at (units (unkno wn) date) . unknown) (unknown) (no (unknown) (unknown) Diabetes type 2, (units (unknown) date) uncontrolled unknown) (unknown) (no (unknown) (unknown) Documented By: (units (unknown) date) Eduardo Singletary unknown) 08/06/22 0900 (unknown) (no (unknown) (unknown) Draft (units (unkno wn) date) unknown) (unknown) (no (unknown) (unknown) Elevated blood (units (unknown) date) alcohol level unknown) (unknown) (no (unknown) (unknown) Family History (units (unknown) date) (Reviewed unknown) 05/28/22 @ 23:59 by Pat Vega DO) (unknown) (no (unknown) (unknown) Family Practice (units (unknown) date) Office Visit unknown) (unknown) (no (unknown) (unknown) Father (units (unknown) date) Lung cancer unknown) (unknown) (no (unknown) (unknown) [facility] ([facility] unknown) (unknown) (no (unknown) (unknown) H/O heart artery (units (unknown) date) stent unknown) (unknown) (no (unknown) (unknown) Health (units (unkno wn) date) Management unknown) reviewed with patient: Yes (unknown) (no (unknown) (unknown) Health (units (unkno wn) date) Management unknown) (unknown) (no (unknown) (unknown) Intake Note: (units (u nknown) date) unknown) (unknown) (no (unknown) (unknown) Intake performed (units (unknown) date) by: Rebeka Cordoba unknown) (unknown) (no (unknown) (unknown) Intake (units (unkno wn) date) unknown) (unknown) (no (unknown) (unknown) Intake- Clincial (units (unknown) date) Staff unknown) (unknown) (no (unknown) (unknown) Loc: [facility] (units (unkno wn) date) unknown) (unknown) (no (unknown) (unknown) Medical History (units (unknown) date) (Reviewed unknown) 05/28/22 @ 23:59 by Pat Vega DO) (unknown) (no (unknown) (unknown) [facility] (units (unknown) date) history unknown unknown) (unknown) (no (unknown) (unknown) No Known Drug (units ( unknown) date) Allergies Allergy unknown) (Verified 08/06/22 09:01) (unknown) (no (unknown) (unknown) Oxygen Delivery (units (unknown) date) Method room air unknown) (unknown) (no (unknown) (unknown) PFSH (units (unkno wn) date) unknown) (unknown) (no (unknown) (unknown) Patient: (units (unkno wn) date) ChuyRen bradshawtvan MR#: unknown) [id number] (unknown) (no (unknown) (unknown) Position Sitting (units (unknown) date) unknown) (unknown) (no (unknown) (unknown) Pulse 110 H (units (un known) date) unknown) (unknown) (no (unknown) (unknown) Pulse Oximetry (units (unknown) date) (%) 99 unknown) (unknown) (no (unknown) (unknown) Pulse Source (units (u nknown) date) Monitor unknown) (unknown) (no (unknown) (unknown) Reason For Visit (units (unknown) date) unknown) (unknown) (no (unknown) (unknown) Signed By: (units (unk nown) date) unknown) (unknown) (no (unknown) (unknown) Smoking Status: (units (unknown) date) Current every day unknown) smoker (unknown) (no (unknown) (unknown) Social History (units (unknown) date) unknown) (unknown) (no (unknown) (unknown) Surgical History (units (unknown) date) (Reviewed unknown) 05/28/22 @ 23:59 by aPt Vega DO) (unknown) (no (unknown) (unknown) Temp 97.4 F L (units ( unknown) date) unknown) (unknown) (no (unknown) (unknown) Temp Source (units (un known) date) Temporal Artery unknown) Scan (unknown) (no (unknown) (unknown) This note may (units ( unknown) date) have been all or unknown) partially generated using voice recognition (unknown) (no (unknown) (unknown) Tobacco + (units (unkn own) date) Substance Use unknown) (unknown) (no (unknown) (unknown) Tobacco Status (units (unknown) date) unknown) (unknown) (no (unknown) (unknown) 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 (units (unknown) date) If there are any unknown) questions, please contact the Medical Records (unknown) (no (unknown) (unknown) household (units (unkn own) date) members: unknown) significant other (unknown) (no (unknown) (unknown) may occur. (units (unk nown) date) Occasional unknown) wrong-word or 'sound-alike' substitutions may have (unknown) (no (unknown) (unknown) occurred due to (units (unknown) date) the inherent unknown) limitations of voice recognition software. Please (unknown) (no (unknown) (unknown) read the note (units ( unknown) date) carefully and unknown) recognize, using context, where these substitutions (unknown) (no (unknown) (unknown) software. (units (unkn own) date) Although every unknown) 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, ancillary services manager therapy errors Result panel 285 (unknown) (no (unknown) (unknown) (no value) (units (unk nown) date) unknown) (unknown) (no (unknown) (unknown) 08/06/22 (units (unkno wn) date) unknown) (unknown) (no (unknown) (unknown) 09:06 (units (unkno wn) date) unknown) (unknown) (no (unknown) (unknown) 2847 (units (unkno wn) date) unknown) (unknown) (no (unknown) (unknown) 66 year old male (units (unknown) date) presents to unknown) clinic for several concerns. (unknown) (no (unknown) (unknown) Age/Sex: 66 / M (units (unknown) date) Date of Service: unknown) (unknown) (no (unknown) (unknown) Allergies (units (unkn own) date) unknown) (unknown) (no (unknown) (unknown) AJIT [place] (units ( unknown) date) [id number] unknown) (unknown) (no (unknown) (unknown) Attending Dr: (units ( unknown) date) Eduardo Singletary D.O. unknown) (unknown) (no (unknown) (unknown) BMI 27.8 (units (unkno wn) date) unknown) (unknown) (no (unknown) (unknown) BP 160/90 H (units (un known) date) unknown) (unknown) (no (unknown) (unknown) Blood Pressure (units (unknown) date) Location Lt unknown) brachial (unknown) (no (unknown) (unknown) Coronary artery (units (unknown) date) disease unknown) (unknown) (no (unknown) (unknown) : 1955 (units (unknown) date) Acct:[id number] unknown) (unknown) (no (unknown) (unknown) Dept at (units (unkno wn) date) . unknown) (unknown) (no (unknown) (unknown) Diabetes type 2, (units (unknown) date) uncontrolled unknown) (unknown) (no (unknown) (unknown) Documented By: (units (unknown) date) Eduardo Singletary unknown) 08/06/22 0900 (unknown) (no (unknown) (unknown) Draft (units (unkno wn) date) unknown) (unknown) (no (unknown) (unknown) Elevated blood (units (unknown) date) alcohol level unknown) (unknown) (no (unknown) (unknown) Family History (units (unknown) date) (Reviewed unknown) 05/28/22 @ 23:59 by Pat Vega DO) (unknown) (no (unknown) (unknown) Family Practice (units (unknown) date) Office Visit unknown) (unknown) (no (unknown) (unknown) Father (units (unknown) date) Lung cancer unknown) (unknown) (no (unknown) (unknown) [facility] ([facility] unknown) (unknown) (no (unknown) (unknown) H/O heart artery (units (unknown) date) stent unknown) (unknown) (no (unknown) (unknown) Health (units (unkno wn) date) Management unknown) reviewed with patient: Yes (unknown) (no (unknown) (unknown) Health (units (unkno wn) date) Management unknown) (unknown) (no (unknown) (unknown) Height 5 ft 8 in (units (unknown) date) unknown) (unknown) (no (unknown) (unknown) Intake Note: (units (u nknown) date) unknown) (unknown) (no (unknown) (unknown) Intake performed (units (unknown) date) by: Rebeka Cordoba unknown) (unknown) (no (unknown) (unknown) Intake (units (unkno wn) date) unknown) (unknown) (no (unknown) (unknown) Intake- Clincial (units (unknown) date) Staff unknown) (unknown) (no (unknown) (unknown) Loc: [facility] (units (unkno wn) date) unknown) (unknown) (no (unknown) (unknown) Medical History (units (unknown) date) (Reviewed unknown) 05/28/22 @ 23:59 by Pat Vega DO) (unknown) (no (unknown) (unknown) [facility] (units (unknown) date) history unknown unknown) (unknown) (no (unknown) (unknown) No Known Drug (units ( unknown) date) Allergies Allergy unknown) (Verified 08/06/22 09:01) (unknown) (no (unknown) (unknown) Oxygen Delivery (units (unknown) date) Method room air unknown) (unknown) (no (unknown) (unknown) PFSH (units (unkno wn) date) unknown) (unknown) (no (unknown) (unknown) Patient: (units (unkno wn) date) Frank Cahn MR#: unknown) [id number] (unknown) (no (unknown) (unknown) Position Sitting (units (unknown) date) unknown) (unknown) (no (unknown) (unknown) Pulse 110 H (units (un known) date) unknown) (unknown) (no (unknown) (unknown) Pulse Oximetry (units (unknown) date) (%) 99 unknown) (unknown) (no (unknown) (unknown) Pulse Source (units (u nknown) date) Monitor unknown) (unknown) (no (unknown) (unknown) Reason For Visit (units (unknown) date) unknown) (unknown) (no (unknown) (unknown) Signed By: (units (unk nown) date) unknown) (unknown) (no (unknown) (unknown) Smoking Status: (units (unknown) date) Current every day unknown) smoker (unknown) (no (unknown) (unknown) Social History (units (unknown) date) unknown) (unknown) (no (unknown) (unknown) Surgical History (units (unknown) date) (Reviewed unknown) 05/28/22 @ 23:59 by Pat Vega DO) (unknown) (no (unknown) (unknown) Temp 97.4 F L (units ( unknown) date) unknown) (unknown) (no (unknown) (unknown) Temp Source (units (un known) date) Temporal Artery unknown) Scan (unknown) (no (unknown) (unknown) This note may (units ( unknown) date) have been all or unknown) partially generated using voice recognition (unknown) (no (unknown) (unknown) Tobacco + (units (unkn own) date) Substance Use unknown) (unknown) (no (unknown) (unknown) Tobacco Status (units (unknown) date) unknown) (unknown) (no (unknown) (unknown) 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 (units (unknown) date) If there are any unknown) questions, please contact the Medical Records (unknown) (no (unknown) (unknown) household (units (unkn own) date) members: unknown) significant other (unknown) (no (unknown) (unknown) may occur. (units (unk nown) date) Occasional unknown) wrong-word or 'sound-alike' substitutions may have (unknown) (no (unknown) (unknown) occurred due to (units (unknown) date) the inherent unknown) limitations of voice recognition software. Please (unknown) (no (unknown) (unknown) provider (units (unkno wn) date) notified of high unknown) blood pressure. (unknown) (no (unknown) (unknown) read the note (units ( unknown) date) carefully and unknown) recognize, using context, where these substitutions (unknown) (no (unknown) (unknown) software. (units (unkn own) date) Although every unknown) 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, ancillary services manager therapy errors Result panel 286 (unknown) (no (unknown) (unknown) (no value) (units (unk nown) date) unknown) (unknown) (no (unknown) (unknown) 08/06/22 (units (unkno wn) date) unknown) (unknown) (no (unknown) (unknown) 09:06 (units (unkno wn) date) unknown) (unknown) (no (unknown) (unknown) 2847 (units (unkno wn) date) unknown) (unknown) (no (unknown) (unknown) 66 year old male (units (unknown) date) presents to unknown) clinic for several concerns. (unknown) (no (unknown) (unknown) Age/Sex: 66 / M (units (unknown) date) Date of Service: unknown) (unknown) (no (unknown) (unknown) Allergies (units (unkn own) date) unknown) (unknown) (no (unknown) (unknown) AJIT [place] (units ( unknown) date) [id number] unknown) (unknown) (no (unknown) (unknown) Attending Dr: (units ( unknown) date) Eduardo MehtaOAdrian unknown) (unknown) (no (unknown) (unknown) BMI 27.8 (units (unkno wn) date) unknown) (unknown) (no (unknown) (unknown) BP 160/90 H (units (un known) date) unknown) (unknown) (no (unknown) (unknown) Blood Pressure (units (unknown) date) Location Lt unknown) brachial (unknown) (no (unknown) (unknown) Coronary artery (units (unknown) date) disease unknown) (unknown) (no (unknown) (unknown) : 1955 (units (unknown) date) Acct:[id number] unknown) (unknown) (no (unknown) (unknown) Dept at (units (unkno wn) date) . unknown) (unknown) (no (unknown) (unknown) Diabetes type 2, (units (unknown) date) uncontrolled unknown) (unknown) (no (unknown) (unknown) Documented By: (units (unknown) date) Eduardo Singletary unknown) 08/06/22 0900 (unknown) (no (unknown) (unknown) Draft (units (unkno wn) date) unknown) (unknown) (no (unknown) (unknown) Elevated blood (units (unknown) date) alcohol level unknown) (unknown) (no (unknown) (unknown) Family History (units (unknown) date) (Reviewed unknown) 05/28/22 @ 23:59 by Pat Vega DO) (unknown) (no (unknown) (unknown) Family Practice (units (unknown) date) Office Visit unknown) (unknown) (no (unknown) (unknown) Father (units (unknown) date) Lung cancer unknown) (unknown) (no (unknown) (unknown) [facility] ([facility] unknown) (unknown) (no (unknown) (unknown) H/O heart artery (units (unknown) date) stent unknown) (unknown) (no (unknown) (unknown) Health (units (unkno wn) date) Management unknown) reviewed with patient: Yes (unknown) (no (unknown) (unknown) Health (units (unkno wn) date) Management unknown) (unknown) (no (unknown) (unknown) Height 5 ft 8 in (units (unknown) date) unknown) (unknown) (no (unknown) (unknown) Intake Note: (units (u nknown) date) unknown) (unknown) (no (unknown) (unknown) Intake performed (units (unknown) date) by: Rebeka Cordoba unknown) (unknown) (no (unknown) (unknown) Intake (units (unkno wn) date) unknown) (unknown) (no (unknown) (unknown) Intake- Clincial (units (unknown) date) Staff unknown) (unknown) (no (unknown) (unknown) Loc: [facility] (units (unkno wn) date) unknown) (unknown) (no (unknown) (unknown) Medical History (units (unknown) date) (Reviewed unknown) 05/28/22 @ 23:59 by Pat Vega DO) (unknown) (no (unknown) (unknown) [facility] (units (unknown) date) history unknown unknown) (unknown) (no (unknown) (unknown) No Known Drug (units ( unknown) date) Allergies Allergy unknown) (Verified 08/06/22 09:01) (unknown) (no (unknown) (unknown) Oxygen Delivery (units (unknown) date) Method room air unknown) (unknown) (no (unknown) (unknown) PFSH (units (unkno wn) date) unknown) (unknown) (no (unknown) (unknown) Patient: (units (unkno wn) date) Ren Chantvan MR#: unknown) [id number] (unknown) (no (unknown) (unknown) Position Sitting (units (unknown) date) unknown) (unknown) (no (unknown) (unknown) Pulse 110 H (units (un known) date) unknown) (unknown) (no (unknown) (unknown) Pulse Oximetry (units (unknown) date) (%) 99 unknown) (unknown) (no (unknown) (unknown) Pulse Source (units (u nknown) date) Monitor unknown) (unknown) (no (unknown) (unknown) Reason For Visit (units (unknown) date) unknown) (unknown) (no (unknown) (unknown) Signed By: (units (unk nown) date) unknown) (unknown) (no (unknown) (unknown) Smoking Status: (units (unknown) date) Current every day unknown) smoker (unknown) (no (unknown) (unknown) Social History (units (unknown) date) unknown) (unknown) (no (unknown) (unknown) Surgical History (units (unknown) date) (Reviewed unknown) 05/28/22 @ 23:59 by Pat Vega DO) (unknown) (no (unknown) (unknown) Temp 97.4 F L (units ( unknown) date) unknown) (unknown) (no (unknown) (unknown) Temp Source (units (un known) date) Temporal Artery unknown) Scan (unknown) (no (unknown) (unknown) This note may (units ( unknown) date) have been all or unknown) partially generated using voice recognition (unknown) (no (unknown) (unknown) Tobacco + (units (unkn own) date) Substance Use unknown) (unknown) (no (unknown) (unknown) Tobacco Status (units (unknown) date) unknown) (unknown) (no (unknown) (unknown) 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 (units (unknown) date) If there are any unknown) questions, please contact the Medical Records (unknown) (no (unknown) (unknown) household (units (unkn own) date) members: unknown) significant other (unknown) (no (unknown) (unknown) may occur. (units (unk nown) date) Occasional unknown) wrong-word or 'sound-alike' substitutions may have (unknown) (no (unknown) (unknown) occurred due to (units (unknown) date) the inherent unknown) limitations of voice recognition software. Please (unknown) (no (unknown) (unknown) provider (units (unkno wn) date) notified of high unknown) blood pressure. (unknown) (no (unknown) (unknown) read the note (units ( unknown) date) carefully and unknown) recognize, using context, where these substitutions (unknown) (no (unknown) (unknown) software. (units (unkn own) date) Although every unknown) 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, ancillary services manager therapy errors Result panel 287 (unknown) (no (unknown) (unknown) (no value) (units (unk nown) date) unknown) (unknown) (no (unknown) (unknown) 08/06/22 (units (unkno wn) date) unknown) (unknown) (no (unknown) (unknown) 09:06 (units (unkno wn) date) unknown) (unknown) (no (unknown) (unknown) 2847 (units (unkno wn) date) unknown) (unknown) (no (unknown) (unknown) 66 year old male (units (unknown) date) presents to clinic unknown) for several concerns. (unknown) (no (unknown) (unknown) Age/Sex: 66 / M (units (unknown) date) Date of Service: unknown) (unknown) (no (unknown) (unknown) Allergies (units (unkn own) date) unknown) (unknown) (no (unknown) (unknown) [place], [place] (units ( unknown) date) [id number] unknown) (unknown) (no (unknown) (unknown) Assessment + Plan (units (unknown) date) unknown) (unknown) (no (unknown) (unknown) Attending Dr: Eduardo (units (unknown) date) Hayder D.OAdrian unknown) (unknown) (no (unknown) (unknown) BMI 27.8 (units (unkno wn) date) unknown) (unknown) (no (unknown) (unknown) BP 160/90 H (units (un known) date) unknown) (unknown) (no (unknown) (unknown) Benign essential (units (unknown) date) HTN unknown) (unknown) (no (unknown) (unknown) Blood Pressure (units (unknown) date) Location Lt unknown) brachial (unknown) (no (unknown) (unknown) Cervicalgia (units (un known) date) unknown) (unknown) (no (unknown) (unknown) Coronary artery (units (unknown) date) disease unknown) (unknown) (no (unknown) (unknown) : 1955 (units (unknown) date) Acct:[id number] unknown) (unknown) (no (unknown) (unknown) Dept at (units (unkno wn) date) . unknown) (unknown) (no (unknown) (unknown) Diabetes type 2, (units (unknown) date) uncontrolled unknown) (unknown) (no (unknown) (unknown) Documented By: (units (unknown) date) Eduardo Singletary unknown) 08/06/22 0900 (unknown) (no (unknown) (unknown) Draft (units (unkno wn) date) unknown) (unknown) (no (unknown) (unknown) Elevated blood (units (unknown) date) alcohol level unknown) (unknown) (no (unknown) (unknown) Essential (units (unkn own) date) (primary) unknown) hypertension, I25.10 - Atherosclerotic heart disease of (unknown) (no (unknown) (unknown) Family History (units (unknown) date) (Reviewed 05/28/22 unknown) @ 23:59 by Pat Vega DO) (unknown) (no (unknown) (unknown) Family Practice (units (unknown) date) Office Visit unknown) (unknown) (no (unknown) (unknown) Father (units (unknown) date) Lung cancer unknown) (unknown) (no (unknown) (unknown) [facility] unknown) (unknown) (no (unknown) (unknown) H/O heart artery (units (unknown) date) stent unknown) (unknown) (no (unknown) (unknown) Health Management (units (unknown) date) reviewed with unknown) patient: Yes (unknown) (no (unknown) (unknown) Health Management (units (unknown) date) unknown) (unknown) (no (unknown) (unknown) Heartburn (units (unkn own) date) unknown) (unknown) (no (unknown) (unknown) Height 5 ft 8 in (units (unknown) date) unknown) (unknown) (no (unknown) (unknown) Hemoglobin A1C% w (units (unknown) date) Est Avg Glu Today unknown) E11.65 - Type 2 diabetes mellitus with (unknown) (no (unknown) (unknown) Hyperlipidemia (units (unknown) date) unknown) (unknown) (no (unknown) (unknown) Intake Note: (units (u nknown) date) unknown) (unknown) (no (unknown) (unknown) Intake performed (units (unknown) date) by: Rebeka Cordoba unknown) (unknown) (no (unknown) (unknown) Intake (units (unkno wn) date) unknown) (unknown) (no (unknown) (unknown) Intake- Clincial (units (unknown) date) Staff unknown) (unknown) (no (unknown) (unknown) Lipid Panel Today (units (unknown) date) E11.65 - Type 2 unknown) diabetes mellitus with hyperglycemia, I10 (unknown) (no (unknown) (unknown) Loc: [facility] (units (unkno wn) date) unknown) (unknown) (no (unknown) (unknown) Medical History (units (unknown) date) (Updated 08/06/22 unknown) @ 09:33 by Eduardo Singletary DO) (unknown) (no (unknown) (unknown) [facility] (units (unknown) date) history unknown unknown) (unknown) (no (unknown) (unknown) No Known Drug (units ( unknown) date) Allergies Allergy unknown) (Verified 08/06/22 09:01) (unknown) (no (unknown) (unknown) Orders (units (unkno wn) date) unknown) (unknown) (no (unknown) (unknown) Orders: (units (unkno wn) date) unknown) (unknown) (no (unknown) (unknown) Oxygen Delivery (units (unknown) date) Method room air unknown) (unknown) (no (unknown) (unknown) PFSH (units (unkno wn) date) unknown) (unknown) (no (unknown) (unknown) Patient: (units (unkno wn) date) Frank Chan MR#: unknown) [id number] (unknown) (no (unknown) (unknown) Position Sitting (units (unknown) date) unknown) (unknown) (no (unknown) (unknown) Pulse 110 H (units (un known) date) unknown) (unknown) (no (unknown) (unknown) Pulse Oximetry (units (unknown) date) (%) 99 unknown) (unknown) (no (unknown) (unknown) Pulse Source (units (u nknown) date) Monitor unknown) (unknown) (no (unknown) (unknown) Reason For Visit (units (unknown) date) unknown) (unknown) (no (unknown) (unknown) Referral Pain (units ( unknown) date) Management G89.29 unknown) - Other chronic pain, I25.10 - Atherosclerotic (unknown) (no (unknown) (unknown) Referrals (units (unkn own) date) unknown) (unknown) (no (unknown) (unknown) Signed By: (units (unk nown) date) unknown) (unknown) (no (unknown) (unknown) Smoking Status: (units (unknown) date) Current every day unknown) smoker (unknown) (no (unknown) (unknown) Social History (units (unknown) date) unknown) (unknown) (no (unknown) (unknown) Surgical History (units (unknown) date) (Reviewed 05/28/22 unknown) @ 23:59 by Pat Vega DO) (unknown) (no (unknown) (unknown) Temp 97.4 F L (units ( unknown) date) unknown) (unknown) (no (unknown) (unknown) Temp Source (units (un known) date) Temporal Artery unknown) Scan (unknown) (no (unknown) (unknown) This note may (units ( unknown) date) have been all or unknown) partially generated using voice recognition (unknown) (no (unknown) (unknown) Tobacco + (units (unkn own) date) Substance Use unknown) (unknown) (no (unknown) (unknown) Tobacco Status (units (unknown) date) unknown) (unknown) (no (unknown) (unknown) 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 (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 (unknown) 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) Hx of unknown) cancer,coronary artery disease, diabetes (unknown) (no (unknown) (unknown) Vitals (units (unkno wn) date) unknown) (unknown) (no (unknown) (unknown) Weight 183 lb (units ( unknown) date) unknown) (unknown) (no (unknown) (unknown) XR cervical spine (units (unknown) date) 2V or 3V Today unknown) G89.29 - Other chronic pain, M54.2 (unknown) (no (unknown) (unknown) XR shoulder LT (units (unknown) date) min 2V Today unknown) M25.512 - Pain in left shoulder (unknown) (no (unknown) (unknown) alcohol intake: (units (unknown) date) former unknown) (unknown) (no (unknown) (unknown) have occurred. If (units (unknown) date) there are any unknown) questions, please contact the Medical Records (unknown) (no (unknown) (unknown) heart disease of (units (unknown) date) [place] coronary unknown) artery without angina pectoris, M25.512 - Pain (unknown) (no (unknown) (unknown) household (units (unkn own) date) members: unknown) significant other (unknown) (no (unknown) (unknown) hyperglycemia (units ( unknown) date) unknown) (unknown) (no (unknown) (unknown) in left shoulder, (units (unknown) date) M54.2 - unknown) Cervicalgia, M54.50 - Low back pain, unspecified (unknown) (no (unknown) (unknown) may occur. (units (unk nown) date) Occasional unknown) wrong-word or 'sound-alike' substitutions may have (unknown) (no (unknown) (unknown) [place] coronary (units (unknown) date) artery without unknown) angina pectoris (unknown) (no (unknown) (unknown) occurred due to (units (unknown) date) the inherent unknown) limitations of voice recognition software. Please (unknown) (no (unknown) (unknown) provider notified (units (unknown) date) of high blood unknown) pressure. (unknown) (no (unknown) (unknown) read the note (units ( unknown) date) carefully and unknown) recognize, using context, where these substitutions (unknown) (no (unknown) (unknown) software. (units (unkn own) date) Although every unknown) 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, ancillary services manager therapy errors Result panel 288 (unknown) (no (unknown) (unknown) (no value) (units (unk nown) date) unknown) (unknown) (no (unknown) (unknown) (1) Left shoulder (units (unknown) date) pain: unknown) (unknown) (no (unknown) (unknown) (2) Chronic neck (units (unknown) date) pain: unknown) (unknown) (no (unknown) (unknown) (3) Diabetes type (units (unknown) date) 2, uncontrolled: unknown) (unknown) (no (unknown) (unknown) (4) Low back (units (u nknown) date) pain: unknown) (unknown) (no (unknown) (unknown) (5) Coronary (units (u nknown) date) artery disease: unknown) (unknown) (no (unknown) (unknown) (6) Heartburn: (units (unknown) date) unknown) (unknown) (no (unknown) (unknown) (7) (units (unkno wn) date) Hyperlipidemia: unknown) (unknown) (no (unknown) (unknown) (8) Benign (units (unk nown) date) essential HTN: unknown) (unknown) (no (unknown) (unknown) - Lumbago with (units (unknown) date) sciatica, right unknown) side; M54.42 - Lumbago with sciatica, left side; (unknown) (no (unknown) (unknown) -advised that I (units (unknown) date) do not prescribe unknown) narcotic medications for long-term pain (unknown) (no (unknown) (unknown) -continue Alleve. (units (unknown) date) Can add Tylenol 4 unknown) times a day as needed. (unknown) (no (unknown) (unknown) -follow up on (units ( unknown) date) month to review unknown) labs and adjust medications further. Would like (unknown) (no (unknown) (unknown) -follow up on (units ( unknown) date) month, as needed unknown) any concerns (unknown) (no (unknown) (unknown) -strongly (units (unkn own) date) encouraged him to unknown) consider physical therapy (unknown) (no (unknown) (unknown) -trial of (units (unkn own) date) gabapentin to help unknown) with pain. (unknown) (no (unknown) (unknown) -we will restart (units (unknown) date) medications. unknown) (unknown) (no (unknown) (unknown) -x-rays pending (units (unknown) date) unknown) (unknown) (no (unknown) (unknown) 08/06/22 0946 (units ( unknown) date) unknown) (unknown) (no (unknown) (unknown) 08/06/22 (units (unkno wn) date) unknown) (unknown) (no (unknown) (unknown) 09:06 (units (unkno wn) date) unknown) (unknown) (no (unknown) (unknown) 1. He states that (units (unknown) date) he has a history unknown) of chronic left shoulder, neck, low back (unknown) (no (unknown) (unknown) . Discussed (units (unknown) date) possible physical unknown) therapy, muscle relaxers. Patient declined. (unknown) (no (unknown) (unknown) 2. History of (units ( unknown) date) coronary artery unknown) disease with stent, diabetes uncontrolled, (unknown) (no (unknown) (unknown) 2847 (units (unkno wn) date) unknown) (unknown) (no (unknown) (unknown) . (units (unkno wn) date) Discussed the unknown) importance of taking care of his chronic issues to (unknown) (no (unknown) (unknown) 6. Restart a PPI. (units (unknown) date) unknown) (unknown) (no (unknown) (unknown) 66 year old male (units (unknown) date) presents to clinic unknown) for several concerns. (unknown) (no (unknown) (unknown) Age/Sex: 66 / M (units (unknown) date) Date of Service: unknown) (unknown) (no (unknown) (unknown) Allergies (units (unkn own) date) unknown) (unknown) (no (unknown) (unknown) Allergies: (units (unk nown) date) Reviewed unknown) (unknown) (no (unknown) (unknown) AJIT [place] (units ( unknown) date) [id number] unknown) (unknown) (no (unknown) (unknown) Artery/Lesion (units ( unknown) date) type: [place] unknown) artery [place] vs. transplanted heart: [place] heart (unknown) (no (unknown) (unknown) Assessment + Plan (units (unknown) date) unknown) (unknown) (no (unknown) (unknown) Associated (units (unk nown) date) angina: without unknown) angina Coronary Disease-Associated (unknown) (no (unknown) (unknown) Attending Dr: Eduardo (units (unknown) date) Hayder Murphy unknown) (unknown) (no (unknown) (unknown) BMI 27.8 (units (unkno wn) date) unknown) (unknown) (no (unknown) (unknown) BP 160/90 H (units (un known) date) unknown) (unknown) (no (unknown) (unknown) Back pain (units (unkn own) date) laterality: unknown) midline Chronicity: chronic Sciatica laterality: (unknown) (no (unknown) (unknown) Benign essential (units (unknown) date) HTN unknown) (unknown) (no (unknown) (unknown) Blood Pressure (units (unknown) date) Location Lt unknown) brachial (unknown) (no (unknown) (unknown) CARDIAC: Regular (units (unknown) date) rate and rhythm. unknown) S1, S2 normal, no murmur.? No edema. (unknown) (no (unknown) (unknown) CHEST: Normal (units ( unknown) date) respiratory effort unknown) (unknown) (no (unknown) (unknown) Cardiovascular: (units (unknown) date) Negative.? unknown) (unknown) (no (unknown) (unknown) Cervicalgia (units (un known) date) unknown) (unknown) (no (unknown) (unknown) Chief Complaint: (units (unknown) date) Chronic shoulder unknown) and neck pain. (unknown) (no (unknown) (unknown) Chronicity: (units (un known) date) chronic Qualified unknown) Code(s): M25.512 - Pain in left shoulder; (unknown) (no (unknown) (unknown) Constitutional: (units (unknown) date) Negative.? unknown) (unknown) (no (unknown) (unknown) Coronary artery (units (unknown) date) disease unknown) (unknown) (no (unknown) (unknown) : 1955 (units (unknown) date) Acct:[id number] unknown) (unknown) (no (unknown) (unknown) Dept at (units (unkno wn) date) . unknown) (unknown) (no (unknown) (unknown) Diabetes type 2, (units (unknown) date) uncontrolled unknown) (unknown) (no (unknown) (unknown) Discontinued (units (u nknown) date) Reason: None 0.4 unknown) mg PO BEDTIME 90 caps 0RF (unknown) (no (unknown) (unknown) Discontinued (units (u nknown) date) Reason: None 25 mg unknown) PO DAILY 90 tabs 0RF (unknown) (no (unknown) (unknown) Discontinued (units (u nknown) date) Reason: None 40 mg unknown) (2 x 20 mg) PO DAILY 10 tabs 0RF (unknown) (no (unknown) (unknown) Discontinued (units (u nknown) date) Reason: None 40 mg unknown) PO BID #0 0RF (unknown) (no (unknown) (unknown) Discontinued (units (u nknown) date) Reason: None 5 mg unknown) PO Q6H PRN 10 tabs 0RF pain (unknown) (no (unknown) (unknown) Discontinued (units (u nknown) date) Reason: None 5 mg unknown) PO Q8HR PRN 20 tabs 0RF Pain. (unknown) (no (unknown) (unknown) Discontinued (units (u nknown) date) Reason: None 500 unknown) mg PO BID 180 tabs 0RF (unknown) (no (unknown) (unknown) Discontinued (units (u nknown) date) unknown) (unknown) (no (unknown) (unknown) Documented By: (units (unknown) date) Eduardo Singletary unknown) 08/06/22 0900 (unknown) (no (unknown) (unknown) EYES: PERRL, EOMI (units (unknown) date) and nonicteric unknown) (unknown) (no (unknown) (unknown) Elevated blood (units (unknown) date) alcohol level unknown) (unknown) (no (unknown) (unknown) Endocrine: (units (unk nown) date) Negative.? unknown) (unknown) (no (unknown) (unknown) Essential (units (unkn own) date) (primary) unknown) hypertension, I25.10 - Atherosclerotic heart disease of (unknown) (no (unknown) (unknown) Family History (units (unknown) date) (Reviewed 05/28/22 unknown) @ 23:59 by Pat Vega DO) (unknown) (no (unknown) (unknown) Family Practice (units (unknown) date) Office Visit unknown) (unknown) (no (unknown) (unknown) Father (units (unknown) date) Lung cancer unknown) (unknown) (no (unknown) (unknown) [facility]) (unknown) (no (unknown) (unknown) G89.29 - Other (units (unknown) date) chronic pain unknown) (unknown) (no (unknown) (unknown) GENERAL: Well (units ( unknown) date) developed, well unknown) nourished.? Cooperative with exam.? Patient is in (unknown) (no (unknown) (unknown) Gastrointestinal: (units (unknown) date) Negative.? unknown) (unknown) (no (unknown) (unknown) Genitourinary: (units (unknown) date) Negative.? unknown) (unknown) (no (unknown) (unknown) Glycemic state: (units (unknown) date) with hyperglycemia unknown) Qualified Code(s): E11.65 - Type 2 (unknown) (no (unknown) (unknown) H/O heart artery (units (unknown) date) stent unknown) (unknown) (no (unknown) (unknown) HEAD: Atraumatic, (units (unknown) date) Normocephalic unknown) (unknown) (no (unknown) (unknown) Health Management (units (unknown) date) reviewed with unknown) patient: Yes (unknown) (no (unknown) (unknown) Health Management (units (unknown) date) unknown) (unknown) (no (unknown) (unknown) Heartburn (units (unkn own) date) unknown) (unknown) (no (unknown) (unknown) Height 5 ft 8 in (units (unknown) date) unknown) (unknown) (no (unknown) (unknown) Hemoglobin A1C% w (units (unknown) date) Est Avg Glu Today unknown) E11.65 - Type 2 diabetes mellitus with (unknown) (no (unknown) (unknown) Hyperlipidemia (units (unknown) date) type: other unknown) hyperlipidemia Qualified Code(s): E78.49 (unknown) (no (unknown) (unknown) Hyperlipidemia (units (unknown) date) unknown) (unknown) (no (unknown) (unknown) I reviewed the (units (unknown) date) patient's Past unknown) Medical History, Problem List, Medications and (unknown) (no (unknown) (unknown) Intake Note: (units (u nknown) date) unknown) (unknown) (no (unknown) (unknown) Intake performed (units (unknown) date) by: Rebeka Cordoab unknown) (unknown) (no (unknown) (unknown) Intake (units (unkno wn) date) unknown) (unknown) (no (unknown) (unknown) Intake- Clincial (units (unknown) date) Staff unknown) (unknown) (no (unknown) (unknown) LUNGS: Clear all (units (unknown) date) lung k[place]aid, unknown) Bilaterally (unknown) (no (unknown) (unknown) Lipid Panel Today (units (unknown) date) E11.65 - Type 2 unknown) diabetes mellitus with hyperglycemia, I10 (unknown) (no (unknown) (unknown) Loc: [facility] (units (unkno wn) date) unknown) (unknown) (no (unknown) (unknown) MUSKULOSKELETAL: (units (unknown) date) Normal gait. unknown) Patient with tenderness along the cervical spine, (unknown) (no (unknown) (unknown) Medical History (units (unknown) date) (Updated 08/06/22 unknown) @ 09:43 by Eduardo Singletary DO) (unknown) (no (unknown) (unknown) Medications: (units (u nknown) date) Reconciled unknown) (unknown) (no (unknown) (unknown) Medications: (units (u nknown) date) unknown) (unknown) (no (unknown) (unknown) Mother Medical (units (unknown) date) history unknown unknown) (unknown) (no (unknown) (unknown) NECK: Full range (units (unknown) date) of motion, unknown) lymphadenopathy absent, supple (unknown) (no (unknown) (unknown) NEURO EXAM: Alert (units (unknown) date) and oriented x 3.? unknown) (unknown) (no (unknown) (unknown) New (units (unkno wn) date) unknown) (unknown) (no (unknown) (unknown) No Known Drug (units ( unknown) date) Allergies Allergy unknown) (Verified 08/06/22 09:01) (unknown) (no (unknown) (unknown) Normal strength (units (unknown) date) in the lower unknown) extremities. (unknown) (no (unknown) (unknown) Note (units (unkno wn) date) unknown) (unknown) (no (unknown) (unknown) Note: (units (unkno wn) date) unknown) (unknown) (no (unknown) (unknown) Notes (units (unkno wn) date) unknown) (unknown) (no (unknown) (unknown) Objective: (units (unk nown) date) unknown) (unknown) (no (unknown) (unknown) Orders (units (unkno wn) date) unknown) (unknown) (no (unknown) (unknown) Orders: (units (unkno wn) date) unknown) (unknown) (no (unknown) (unknown) Other (units (unkno wn) date) hyperlipidemia unknown) (unknown) (no (unknown) (unknown) Oxygen Delivery (units (unknown) date) Method room air unknown) (unknown) (no (unknown) (unknown) PFSH (units (unkno wn) date) unknown) (unknown) (no (unknown) (unknown) PSYCH: judgement (units (unknown) date) normal, unknown) orientation normal, affect/mood normal and memory (unknown) (no (unknown) (unknown) Patient presents (units (unknown) date) to address several unknown) issues. (unknown) (no (unknown) (unknown) Patient: (units (unkno wn) date) Frank Chan MR#: unknown) [id number] (unknown) (no (unknown) (unknown) Plan (units (unkno wn) date) unknown) (unknown) (no (unknown) (unknown) Position Sitting (units (unknown) date) unknown) (unknown) (no (unknown) (unknown) Pulse 110 H (units (un known) date) unknown) (unknown) (no (unknown) (unknown) Pulse Oximetry (units (unknown) date) (%) 99 unknown) (unknown) (no (unknown) (unknown) Pulse Source (units (u nknown) date) Monitor unknown) (unknown) (no (unknown) (unknown) Qualified (units (unkn own) date) Code(s): I25.10 - unknown) Atherosclerotic heart disease of [place] coronary (unknown) (no (unknown) (unknown) Qualifiers: (units (un known) date) unknown) (unknown) (no (unknown) (unknown) Reason For Visit (units (unknown) date) unknown) (unknown) (no (unknown) (unknown) Referral Pain (units ( unknown) date) Management G89.29 unknown) - Other chronic pain, I25.10 - Atherosclerotic (unknown) (no (unknown) (unknown) Referrals (units (unkn own) date) unknown) (unknown) (no (unknown) (unknown) Refilled (units (unkno wn) date) unknown) (unknown) (no (unknown) (unknown) Respiratory: (units (u nknown) date) Negative.? unknown) (unknown) (no (unknown) (unknown) Review of (units (unkn own) date) Systems: unknown) (unknown) (no (unknown) (unknown) SKIN:? No rashes (units (unknown) date) on face or arms. unknown) (unknown) (no (unknown) (unknown) Signed By: (units (unk nown) date) <Electronically unknown) signed by Eduardo Singletary> (unknown) (no (unknown) (unknown) Signed (units (unkno wn) date) unknown) (unknown) (no (unknown) (unknown) Smoking Status: (units (unknown) date) Current every day unknown) smoker (unknown) (no (unknown) (unknown) Social History (units (unknown) date) (including tobacco unknown) use status). (unknown) (no (unknown) (unknown) Social History (units (unknown) date) unknown) (unknown) (no (unknown) (unknown) Status: Acute (units ( unknown) date) unknown) (unknown) (no (unknown) (unknown) Subjective: (units (un known) date) unknown) (unknown) (no (unknown) (unknown) Surgical History (units (unknown) date) (Reviewed 05/28/22 unknown) @ 23:59 by Pat Vega DO) (unknown) (no (unknown) (unknown) Temp 97.4 F L (units ( unknown) date) unknown) (unknown) (no (unknown) (unknown) Temp Source (units (un known) date) Temporal Artery unknown) Scan (unknown) (no (unknown) (unknown) This note may (units ( unknown) date) have been all or unknown) partially generated using voice recognition (unknown) (no (unknown) (unknown) Tobacco + (units (unkn own) date) Substance Use unknown) (unknown) (no (unknown) (unknown) Tobacco Status (units (unknown) date) unknown) (unknown) (no (unknown) (unknown) Type 2 diabetes (units (unknown) date) mellitus with unknown) hyperglycemia (unknown) (no (unknown) (unknown) 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 (units (unknown) date) Hx of unknown) cancer,coronary artery disease, diabetes (unknown) (no (unknown) (unknown) Vital Signs: (units (u nknown) date) Reviewed unknown) (unknown) (no (unknown) (unknown) Vitals (units (unkno wn) date) unknown) (unknown) (no (unknown) (unknown) Voice recognition (units (unknown) date) software was used unknown) in the creation of this note. There may be (unknown) (no (unknown) (unknown) Weight 183 lb (units ( unknown) date) unknown) (unknown) (no (unknown) (unknown) XR cervical spine (units (unknown) date) 2V or 3V Today unknown) G89.29 - Other chronic pain, M54.2 (unknown) (no (unknown) (unknown) XR shoulder LT (units (unknown) date) min 2V Today unknown) M25.512 - Pain in left shoulder (unknown) (no (unknown) (unknown) [pantoprazole] (units (unknown) date) unknown) (unknown) (no (unknown) (unknown) alcohol intake: (units (unknown) date) former unknown) (unknown) (no (unknown) (unknown) and strength in (units (unknown) date) the left shoulder. unknown) He does have some lumbar tenderness as well. (unknown) (no (unknown) (unknown) artery without (units (unknown) date) angina pectoris unknown) (unknown) (no (unknown) (unknown) atorvastatin (units (u nknown) date) (Lipitor) 40 mg PO unknown) DAILY 90 tabs 3RF E78.5 - Hyperlipidemia, (unknown) (no (unknown) (unknown) bilateral (units (unkn own) date) sciatica Sciatica unknown) presence: with sciatica Qualified Code(s): M54.41 (unknown) (no (unknown) (unknown) control. Would (units (unknown) date) have to see a pain unknown) management clinic to discuss medication (unknown) (no (unknown) (unknown) diabetes mellitus (units (unknown) date) with hyperglycemia unknown) (unknown) (no (unknown) (unknown) difficult to walk (units (unknown) date) and he has some unknown) weakness in his legs. He denies any new (unknown) (no (unknown) (unknown) have occurred. If (units (unknown) date) there are any unknown) questions, please contact the Medical Records (unknown) (no (unknown) (unknown) heart disease of (units (unknown) date) [place] coronary unknown) artery without angina pectoris, M25.512 - Pain (unknown) (no (unknown) (unknown) household (units (unkn own) date) members: unknown) significant other (unknown) (no (unknown) (unknown) hyperglycemia (units ( unknown) date) unknown) (unknown) (no (unknown) (unknown) hypertension (units (u nknown) date) unknown) (unknown) (no (unknown) (unknown) hypertension, (units ( unknown) date) acute unknown) pancreatitis, heartburn. He states that he has been off (unknown) (no (unknown) (unknown) in left shoulder, (units (unknown) date) M54.2 - unknown) Cervicalgia, M54.50 - Low back pain, unspecified (unknown) (no (unknown) (unknown) injury. He did (units (unknown) date) get an MRI of his unknown) lumbar spine in the emergency department last (unknown) (no (unknown) (unknown) losartan 50 mg PO (units (unknown) date) DAILY 90 tabs 3RF unknown) blood pressure I10 - Essential (primary) (unknown) (no (unknown) (unknown) losartan (units (unkno wn) date) unknown) (unknown) (no (unknown) (unknown) may occur. (units (unk nown) date) Occasional unknown) wrong-word or 'sound-alike' substitutions may have (unknown) (no (unknown) (unknown) medications for (units (unknown) date) some time now. He unknown) is not checking his blood sugars or blood (unknown) (no (unknown) (unknown) metformin ER (units (u nknown) date) 1,000 mg (2 x 500 unknown) mg) PO DAILY 180 tabs 3RF blood sugars E11.65 (unknown) (no (unknown) (unknown) metformin (units (unkn own) date) unknown) (unknown) (no (unknown) (unknown) metoprolol (units (unk nown) date) succinate ER 25 mg unknown) PO DAILY 90 tabs 3RF blood pressure I10 (unknown) (no (unknown) (unknown) metoprolol (units (unk nown) date) succinate ER unknown) (unknown) (no (unknown) (unknown) [place] coronary (units (unknown) date) artery without unknown) angina pectoris (unknown) (no (unknown) (unknown) no apparent (units (un known) date) distress. unknown) (unknown) (no (unknown) (unknown) normal (units (unkno wn) date) unknown) (unknown) (no (unknown) (unknown) occurred due to (units (unknown) date) the inherent unknown) limitations of voice recognition software. Please (unknown) (no (unknown) (unknown) omeprazole 20 mg (units (unknown) date) PO DAILY 90 caps unknown) 3RF R12 - Heartburn (unknown) (no (unknown) (unknown) options for (units (un known) date) long-term unknown) management of pain. (unknown) (no (unknown) (unknown) oxycodone (units (unkn own) date) unknown) (unknown) (no (unknown) (unknown) pain in his lower (units (unknown) date) back that radiates unknown) down his legs frequently it makes it (unknown) (no (unknown) (unknown) pain. He has been (units (unknown) date) seen in the unknown) emergency department several times for this. He (unknown) (no (unknown) (unknown) palpitations. No (units (unknown) date) leg swelling. Does unknown) state that he has some numbness and (unknown) (no (unknown) (unknown) paraspinous (units (un known) date) muscles, left unknown) trapezius and left shoulder. Normal range of motion (unknown) (no (unknown) (unknown) prednisone (units (unk nown) date) unknown) (unknown) (no (unknown) (unknown) pressure at home. (units (unknown) date) Denies any chest unknown) pains, shortness of breath, heart (unknown) (no (unknown) (unknown) prevent adverse (units (unknown) date) outcomes. unknown) Reviewing his previous labs he has had elevated blood (unknown) (no (unknown) (unknown) provider notified (units (unknown) date) of high blood unknown) pressure. (unknown) (no (unknown) (unknown) read the note (units ( unknown) date) carefully and unknown) recognize, using context, where these substitutions (unknown) (no (unknown) (unknown) readdress at the (units (unknown) date) next visit. unknown) (unknown) (no (unknown) (unknown) software. (units (unkn own) date) Although every unknown) 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, ancillary services manager therapy errors (unknown) (no (unknown) (unknown) states that the (units (unknown) date) pain radiates unknown) between his neck and shoulder frequently. He has (unknown) (no (unknown) (unknown) sugars. (units (unkno wn) date) unknown) (unknown) (no (unknown) (unknown) tamsulosin (units (unk nown) date) (Flomax) unknown) (unknown) (no (unknown) (unknown) that in the past (units (unknown) date) he takes oxycodone unknown) to help control the pain. He does not like (unknown) (no (unknown) (unknown) tingling in his (units (unknown) date) legs and feet unknown) frequently. (unknown) (no (unknown) (unknown) to get him on (units ( unknown) date) Jardiance to help unknown) with his blood sugars if possible. We will (unknown) (no (unknown) (unknown) to take muscle (units (unknown) date) relaxers. He does unknown) take a leave b.i.d.. (unknown) (no (unknown) (unknown) typographical (units ( unknown) date) errors as a unknown) result. (unknown) (no (unknown) (unknown) unspecified (units (un known) date) unknown) (unknown) (no (unknown) (unknown) year which did (units (unknown) date) not show any clear unknown) cause of his chronic pain issues. He states Social History date description facility 2022-05-28 00:00 Smokes tobacco daily (finding) [facility] 2022-08-06 00:00 Smokes tobacco daily (finding) [facility] Vital Signs date measurement value units 2022-05-28 00:00 BMI 25.0 kg/m2 2022-05-28 00:00 height_metric 172.72 cm 2022-05-28 00:00 height_standard 68 in 2022-05-28 00:00 temperature_metric 37.11 C 2022-05-28 00:00 temperature_standard 98.8 F 2022-05-28 00:00 weight_metric 74.84 kg 2022-05-28 00:00 weight_standard 164.99 lb 2022-05-29 00:00 BP_diastolic 65 mmHg 2022-05-29 00:00 BP_systolic 127 mmHg 2022-05-29 00:00 heart_rate 96 /min 2022-05-29 00:00 o2_saturation 95 % 2022-05-29 00:00 respiration_rate 18 /min 2022-08-06 00:00 BMI 27.8 kg/m2 2022-08-06 00:00 BP_diastolic 90 mmHg 2022-08-06 00:00 BP_systolic 160 mmHg 2022-08-06 00:00 heart_rate 110 /min 2022-08-06 00:00 height_metric 172.72 cm 2022-08-06 00:00 height_standard 68 in 2022-08-06 00:00 o2_saturation 99 % 2022-08-06 00:00 temperature_metric 36.33 C 2022-08-06 00:00 temperature_standard 97.4 F 2022-08-06 00:00 weight_metric 83 kg 2022-08-06 00:00 weight_standard 182.98 lb
--- NOTE | 2022-08-22 18:51 | ED Physician Documentation ---
History of Present Illness - Stated complaint Stated Complaint: CHEST PX - Chief complaint Chief Complaint: Cardiac - History obtained from History obtained from: Patient, EMS - History of Present Illness Timing: Chronic Pain level max: 10 Pain level now: 10 - Additonal information Additional information: Patient complains of ongoing neck/left-sided shoulder pain. This been ongoing for several months. He also has intermittent chest pain. This has been going on for years. No cardiac cause has ever been found. He was seen here back in May and diagnosed with what appears to be metastatic cancer throughout his lungs. The patient has not followed up with anybody. He has not followed up with oncology or his primary care provider. The patient's girlfriend usually drives him to [place]. Is unclear why he is not following up with his doctor. Patient states that his doctor will not give him any pain medication. He states that he did not follow-up with oncology because "he did not have a phone number". I asked him why he did not call his regular provider and again he stated "he will not give me pain medicine". Review of Systems Constitutional: denies: Fever, Chills Nose: denies: Rhinorrhea / runny nose, Congestion GI: denies: Vomiting Skin: denies: Rash Musculoskeletal: denies: Neck pain, Back pain Neurologic: denies: Headache PD PAST MEDICAL HISTORY - Past Medical History Cardiovascular: Hypertension, High cholesterol, Coronary artery disease, [place] Respiratory: Sleep apnea Endocrine/Autoimmune: None GI: GERD : None HEENT: None Psych: None Musculoskeletal: Chronic back pain Derm: None - Past Surgical History Past Surgical History: Yes Ortho: Spine surgery Cardiovascular: Coronary stent - Present Medications Home Medications: Ambulatory Orders Medication Instructions Recorded Confirmed Aspirin EC [Ecotrin] 81 mg PO DAILY #30 tablet 09/21/20 10/24/20 Atorvastatin [Lipitor] 40 mg PO QPM #30 tablet 09/21/20 10/24/20 Blood Sugar Diagnostic [Glucose 1 each MC DAILY #30 strip 09/21/20 10/24/20 Test Strip] Blood-Glucose Meter [Glucometer] 1 each MC DAILY #1 each 09/21/20 10/24/20 Fenofibrate [Tricor] 134 mg PO DAILY #30 tablet 09/21/20 10/24/20 Lancets 1 each MC DAILY #30 each 09/21/20 10/24/20 Metoprolol Succinate [Toprol Xl] 25 mg PO DAILY #30 tablet 09/21/20 10/24/20 metFORMIN [Glucophage] 500 mg PO BIDWM #60 tablet 09/21/20 10/24/20 oxyCODONE [Roxicodone] 5 mg PO Q8HR PRN #20 tablet 09/21/20 10/24/20 Pantoprazole [Protonix] 40 mg PO DAILY #14 tablet 09/22/20 10/24/20 Oxycodone HCl/Acetaminophen 1 - 2 each PO Q6H PRN #20 tablet 06/25/22 [Percocet 5-325 mg Tablet] HYDROcod/ACETAM 5/325 [[place] 5/325] 1 - 2 tablet PO Q6H PRN #14 tablet 07/23/22 oxyCODONE [Roxicodone] 5 - 10 mg PO Q6H PRN #14 tablet 08/22/22 MDD 6 - Allergies Allergies/Adverse Reactions: Allergies Allergy/AdvReac Type Severity Reaction Status Date / Time No Known Drug Allergies Allergy Verified 08/22/22 18:36 - Social History Does the pt smoke?: Yes Smoking Status: Current every day smoker Does the pt drink ETOH?: No Does the pt have substance abuse?: No - Immunizations Immunizations are current?: No Immunizations: TDAP >10years/unknown - POLST Patient has POLST: No PD ED PE NORMAL - Vitals Vital signs reviewed: Yes - General General: Alert and oriented X 3, No acute distress - HEENT HEENT: PERRL, Moist mucous membranes - Neck Neck: Supple, no meningeal sign - Cardiac Cardiac: RRR, No murmur, Strong equal pulses - Respiratory Respiratory: No respiratory distress, Clear bilaterally - Abdomen Abdomen: Soft, Non tender, Non distended - Back Back: No CVA TTP, No spinal TTP - Derm Derm: Warm and dry - Extremities Extremities: No edema, No calf tenderness / cord - Neuro Neuro: Alert and oriented X 3 - Psych Psych: Normal mood, Normal affect Results - Vitals Vitals: Vital Signs - 24 hr 08/22/22 08/22/22 08/22/22 18:30 20:06 21:12 Temperature 36.6 C Heart Rate 78 103 H 109 H Respiratory 20 14 20 Rate Blood Pressure 121/85 H 118/81 H 156/89 H O2 Saturation 99 96 96 Oxygen O2 Source Room air - EKG (time done) 1827 Rate: Rate (enter#) (116) Rhythm: Sinus tachycardia Williamson: Normal Intervals: Normal NV QRS: Normal (non-specific IVCD) Ischemia: Normal ST segments Compare to prior EKG: Unchanged from prior EKG - Labs Labs: Laboratory Tests 08/22/22 08/22/22 08/22/22 18:51 18:51 18:51 WBC 3.8 L RBC 5.33 Hgb 15.2 Hct 43.7 MCV 82.0 MCH 28.5 MCHC 34.8 RDW 13.1 Plt Count 77 L MPV 11.4 Neut # (Auto) 2.6 Lymph # (Auto) 0.6 L Canadian # (Auto) 0.4 Eos # (Auto) 0.0 Baso # (Auto) 0.0 Absolute Nucleated RBC 0.00 Nucleated RBC % 0.0 Sodium 126 L Potassium 3.9 Chloride 93 L Carbon Dioxide 20 L Anion Gap 13.0 BUN < 5 L Creatinine 0.5 L Estimated GFR (MDRD) 166 Glucose 166 H Calcium 8.4 L Total Bilirubin 4.5 H AST 138 H ALT 97 H Alkaline Phosphatase 298 H Troponin I High Sens 6.8 Total Protein 6.2 L Albumin 3.0 L Globulin 3.2 Albumin/Globulin Ratio 0.9 L Lipase 87 H - Rads (name of study) cxr Radiology: Final report received, See rad report abd/pelvis CT Radiology: Final report received, See rad report Right upper quadrant ultrasound Radiology: Final report received, See rad report PD Medical Decision Making - ED course Complexity details: reviewed results, re-evaluated patient, considered differential, d/w patient ED course: 66-year-old male with diffuse metastatic cancer. The importance of follow-up with his primary care provider and oncology was again stressed to the patient. Informed him that if he does not want to treat his cancer, his primary care provider could place him on hospice. His pain was well controlled here. Will prescribe pain medication for home. Patient does not want to stay in the hospital. He was given IV fluids as well for his hyponatremia. No altered mental status. Patient will have his liver function test rechecked with his doctor. Patient was counseled at length regarding the need for follow-up tomorrow. Patient counseled regarding signs and symptoms for which I believe and urgent re-evaluation would be necessary. Patient with good understanding of and agreement to plan and is comfortable going home at this time This document was made in part using voice recognition software. While efforts are made to proofread this document, sound alike and grammatical errors may occur. Departure - Departure Disposition: 01 Home, Self Care Clinical Impression: Hyponatremia, Elevated liver function tests Metastatic cancer Qualifiers: Area of secondary neoplastic involvement: unspecified site Qualified Code(s): C79.9 - Secondary malignant neoplasm of unspecified site Chest pain Qualifiers: Chest pain type: unspecified Qualified Code(s): R07.9 - Chest pain, unspecified Condition: Stable Instructions: ED Chest Pain Atypical Unkn Cause Follow-Up: OWEN MAYO DO [Physician No Access] - [facility] [Provider Group] Prescriptions: oxyCODONE [Roxicodone] 5 - 10 mg PO Q6H PRN #14 tablet MDD 6 PRN Reason: pain Comments: As we discussed you appear to have metastatic cancer throughout your lungs and liver. You need to follow-up with an oncologist. The [facility] oncology team does come to the [facility] at [facility]. We have prescribed you pain medications. You need to contact your primary care doctor tomorrow as well. Your prescriptions were sent to [facility] in [place] I am prescribing a short course of narcotic pain medication for you. These are potentially dangerous and addictive medications that should be used carefully. These medications may constipate you. Take an [id number]-rhrofcx stool softener (docusate) twice daily with plenty of water while taking these medications. If you go 24 hours without a bowel movement, take [id number] miralax, per package instructions. Do not drink or drive while taking these medications. If you received narcotic or sedating medications while in the emergency department, do not drive for 24 hours. Store this medication in a safe, secure place and out of reach of children. It is a violation of federal law to give or sell this medication to another person or to use in a manner other than prescribed. The ED will not refill narcotic prescriptions, including prescriptions lost or stolen. To dispose of unwanted medications: 1. [facility] at [address] in [place] has a medication drop box. They accept prescription medications (in pill form) Todd through Tuesday 9:00 a.m. to 5:00 p.m. 2. [facility], [place] [employer] accepts prescription medications (in pill form only) for disposal year round. Call for more information. 3. Contact the [facility] for the next [facility] sponsored prescription drug collection event. , [phone], or [phone]; FINDINGS: Image quality: Excellent. Lung bases: There are multiple lobulated confluent pleural-based mass lesions within the visualized left lingula which appear increased compared to the prior study. There is a small left pleural effusion. Dependent atelectasis demonstrated bilaterally. Heart: Heart is normal in size. ABDOMEN: Liver: There are innumerable new small enhancing mass lesions throughout the liver. Diffuse hypoattenuation of the underlying hepatic parenchyma is redemonstrated consistent with steatosis. Gallbladder: The gallbladder is nondistended. There is mild wall thickening which is nonspecific due to nondistention. There is minimal pericholecystic fat stranding. Biliary ducts: No biliary ductal dilatation. Pancreas: Unremarkable. Spleen: There is increased splenomegaly, with the spleen measuring up to 17.6 cm. Adrenal Glands: There is the nodular thickening of the adrenal glands bilaterally, new compared to prior studies. Kidneys and Ureters: No hydronephrosis. Stomach and Bowel: Stomach, small bowel loops, and colon are normal in caliber and wall thickness. Appendix is normal in appearance. There is colonic diverticulosis without acute diverticulitis. Peritoneum: There is a small amount of intraperineal free fluid in the right lower quadrant. No free air. Ventral Wall: No hernia. Abdominal Nodes: There are mildly enlarged xuan hepatis lymph nodes. Manager Sap node measuring up to 1.0 cm on series 3 image 36, increased in size on the prior study. No retroperitoneal ly mphadenopathy by size criteria. Vessels: Aorta and inferior vena cava are normal in size. PELVIS: Pelvic Organs: Unremarkable. Bladder: Unremarkable. Pelvic Nodes: No enlarged lymph nodes. Miscellaneous: There are bilateral small fat-containing inguinal hernias. Bones: Visualized osseous structures demonstrate no suspicious lesions. IMPRESSION: 1. Increase in size of multiple lobulated pleural-based mass lesions in the arvind gula most likely representing neoplasm. Recommend correlation with clinical history. 2. Innumerable new enhancing mass lesions throughout the liver most likely representing metastatic disease. 3. New bilateral nodular enlargement of the adrenal glands also likely representing metastatic disease. 4. Mild gallbladder wall thickening and pericholecystic fat stranding with evaluation limited by nondistention of the gallbladder. No calcified gallstones. The findings are nonspecific but cholecystitis cannot be excluded. Recommend correlation with ultrasound. 5. Discharge Date/Time: 08/22/22 21:39
[2022-08-22] MEDS ORDERED: oxyCODONE 5 MG TABLET PO STA (18:54)
[2022-08-22 18:59] LABS: BASOPHILS % (AUTO) 0.5 %; EOSINOPHILS % (AUTO) 0.3 %; HCT - HEMATOCRIT 43.7 % (42.0-52.0); HGB - HEMOGLOBIN 15.2 g/dL (14.0-18.0); LYMPHOCYTES # (AUTO) 0.6 10^3/uL (1.5-3.5); LYMPHOCYTES % (AUTO) 16.5 %; MEAN CORPUSCULAR HEMOGLOBIN 28.5 pg (27.0-31.0); MEAN CORPUSCULAR HGB CONC 34.8 g/dL (32.0-36.0); MEAN PLATELET VOLUME 11.4 fL (7.4-11.4); MONOCYTES # (AUTO) 0.4 10^3/uL (0.0-1.0); MONOCYTES % (AUTO) 11.7 %; NEUTROPHILS # (AUTO) 2.6 10^3/uL (1.5-6.6); NEUTROPHILS % (AUTO) 69.9 %; PLT - PLATELET COUNT 77 10^3/uL (130-450); RED BLOOD COUNT 5.33 10^6/uL (4.70-6.10); RED CELL DISTRIBUTION WIDTH 13.1 % (12.0-15.0); WHITE BLOOD COUNT 3.8 x10^3/uL (4.8-10.8)
--- NOTE | 2022-08-22 19:02 | XRAY Report ---
PROCEDURE: Chest 1 View X-Ray INDICATIONS: Chest Pain TECHNIQUE: One view of the chest was acquired. COMPARISON: 06/25/2022 chest film, CT angiogram of the chest dated 06/25/2022 FINDINGS: Surgical changes and devices: None. Lungs and pleura: No pleural effusions or pneumothorax. Unchanged patchy density, left lung. These c orrespond to enhancing nodularity in the lingula. Mediastinum: Mediastinal contours appear normal. Heart size is normal. Bones and chest wall: No suspicious bony lesions. Overlying soft tissues appear unremarkable. IMPRESSION: Enhancing nodules in the lingula correspond to a density seen on chest x-ray. No significant change. Reviewed by: Zak Hill MD on 08/22/2022 7:01 PM PST Approved by: Zak Hill MD on 08/22/2022 7:01 PM PST Station ID: [id number]
[2022-08-22 19:18] LABS: ALBUMIN/GLOBULIN RATIO 0.9 (1.0-2.2); ALKALINE PHOSPHATASE 298 IU/L (42-121); ALT ALANINE AMINOTRANSFERASE 97 IU/L (10-60); AST ASPARTATE AMINOTRANSFERASE 138 IU/L (10-42); BILIRUBIN,TOTAL 4.5 mg/dL (0.2-1.0); BUN - BLOOD UREA NITROGEN < 5 mg/dL (6-20); CALCIUM 8.4 mg/dL (8.5-10.3); CARBON DIOXIDE - CO2 20 mmol/L (21-32); CHLORIDE 93 mmol/L (101-111); CREATININE 0.5 mg/dL (0.6-1.2); GFR - MDRD 166 (>89); GLUCOSE 166 mg/dL (70-100); LIPASE 87 U/L (22-51); POTASSIUM 3.9 mmol/L (3.5-5.0); SODIUM 126 mmol/L (135-145); TOTAL PROTEIN 6.2 g/dL (6.7-8.2)
[2022-08-22] MEDS ORDERED: SODIUM CHLORIDE 0.9% 1,000 ML IV STA (19:39)
[2022-08-22] MEDS ORDERED: HYDROmorphone 1 MG/ML CARPUJECT IVP STA ×2 (19:40→20:54)
[2022-08-22] MEDS ORDERED: iohexoL-300 100 ML VIAL ONE (19:44)
[2022-08-22] MEDS ORDERED: iohexoL-300 100 ML VIAL IVP ONE (20:36)
--- NOTE | 2022-08-22 21:30 | CT Report ---
PROCEDURE: ABDOMEN/PELVIS W INDICATIONS: elevated LFT, abd/chest pain CONTRAST: 100 ML OMNI 300 AT 2.2 ML/SEC WITH 60 SEC DELAY. TECHNIQUE: After the administration of intravenous contrast, 5 mm thick sections acquired from the diaphragms to the symphysis. 5 mm thick coronal and sagittal reformats were acquired. For radiation dose reducti on, the following was used: automated exposure control, adjustment of mA and/or kV according to emeli ent size. COMPARISON: CT angiogram abdomen pelvis 06/25/2022. CT abdomen pelvis 03/26/2019. FINDINGS: Image quality: Excellent. Lung bases:There are multiple lobulated confluent pleural-based mass lesions within the visualized l eft lingula which appear increased compared to the prior study. There is a small left pleural effusio n. Dependent atelectasis demonstrated bilaterally. Heart: Heart is normal in size. ABDOMEN: Liver:There are innumerable new small enhancing mass lesions throughout the liver. Diffuse hypoatten uation of the underlying hepatic parenchyma is redemonstrated consistent with steatosis. Gallbladder:The gallbladder is nondistended. There is mild wall thickening which is nonspecific due to nondistention. There is minimal pericholecystic fat stranding. Biliary ducts: No biliary ductal d ilatation. Pancreas: Unremarkable. Spleen:There is increased splenomegaly, with the spleen measuring up to 17.6 cm. Adrenal Glands:There is the nodular thickening of the adrenal glands bilaterally, new compared to pr ior studies. Kidneys and Ureters: No hydronephrosis. Stomach and Bowel: Stomach, small bowel loops, and colon are normal in caliber and wall thickness. A ppendix is normal in appearance. There is colonic diverticulosis without acute diverticulitis. Peritoneum: There is a small amount of intraperineal free fluid in the right lower quadrant. No free air. Ventral Wall: No hernia. Abdominal Nodes: There are mildly enlarged xuan hepatis lymph nodes. Concrete Curer node measuring up to 1.0 cm on series 3 image 36, increased in size on the prior study. No retroperitoneal lymphaden opathy by size criteria. Vessels: Aorta and inferior vena cava are normal in size. PELVIS: Pelvic Organs: Unremarkable. Bladder: Unremarkable. Pelvic Nodes: No enlarged lymph nodes. Miscellaneous: There are bilateral small fat-containing inguinal hernias. Bones: Visualized osseous structures demonstrate no suspicious lesions. IMPRESSION: 1. Increase in size of multiple lobulated pleural-based mass lesions in the lingula most likely repre senting neoplasm. Recommend correlation with clinical history. 2. Innumerable new enhancing mass lesions throughout the liver most likely representing metastatic di sease. 3. New bilateral nodular enlargement of the adrenal glands also likely representing metastatic diseas e. 4. Mild gallbladder wall thickening and pericholecystic fat stranding with evaluation limited by nond istention of the gallbladder. No calcified gallstones. The findings are nonspecific but cholecystitis cannot be excluded. Recommend correlation with ultrasound. 5. Reviewed by: Donavon Fonseca MD on 08/22/2022 9:29 PM PST Approved by: Donavon Fonseca MD on 08/22/2022 9:29 PM PST Station ID: [id number]
[2022-08-22 21:33] VITALS: BP 156/89
--- NOTE | 2022-08-22 21:33 | Ultrasound Report ---
PROCEDURE: Abdomen Limited INDICATIONS: elevated LFTs, poss met cancer, CT 06/17 TECHNIQUE: Real-time focused scanning was performed of the abdomen, with image documentation. COMPARISON: Concurrent CT of the abdomen and pelvis. FINDINGS: The liver demonstrates increased echogenicity consistent with fatty infiltration. There are minimal s mall hypoechoic mass lesions throughout the liver consistent with metastatic disease. The gallbladder is nondistended. No gallstones identified. Gallbladder wall is thickened, measuring u p to 0.7 cm. No discrete pericholecystic fluid. No intrahepatic or extrahepatic biliary ductal dilatation. The visualized pancreas appears unremarkable sonographically. Right kidney measures 10.7 cm. No hydronephrosis. IMPRESSION: 1. Innumerable hepatic mass lesions consistent with metastatic disease. Recommend correlation with co ncurrent CT. 2. Gallbladder wall thickening demonstrated. The finding is nonspecific and evaluation is limited due to nondistention of the gallbladder. No discrete gallstones identified. Reviewed by: Donavon Fonseca MD on 08/22/2022 9:32 PM PST Approved by: Donavon Fonseca MD on 08/22/2022 9:32 PM PST Station ID: [id number]
== END 2022-08-22 21:39 | disposition home or self-care (01) ==
LOC: EDUNIT# → ED 18:18
DX: E87.1 Hypo-osmolality and hyponatremia (principal); R94.5 Abnormal results of liver function studies; C79.9 Secondary malignant neoplasm of unspecified site; R07.9 Chest pain, unspecified; F17.200 Nicotine dependence, unspecified, uncomplicated
CPT/HCPCS: 36415; 71045; 74177; 76705; 80053; 83690; 84484; 85025; 93005; 96361; 96374; 96376; 99284; A9270; J1170; Q9967

== ENCOUNTER 2022-08-29 12:36 | Outpatient (CLI) | payer MEDICARE, MEDICAID | END 2022-08-29 12:37 | disposition critical access hospital (66) | LOC: EMS 12:36 | DX: R10.9 Unspecified abdominal pain (principal); R07.9 Chest pain, unspecified; M54.9 Dorsalgia, unspecified; G89.29 Other chronic pain | CPT/HCPCS: A0425; A0427 ==

== ENCOUNTER 2022-08-29 12:59 | Emergency (ER) | payer MEDICARE, MEDICAID ==
[2022-08-29] MEDS ORDERED: HYDROmorphone 1 MG/ML CARPUJECT IVP STA ×2 (13:07→14:27)
[2022-08-29] MEDS ORDERED: ONDANSETRON 4 MG/2 ML VIAL IVP STA (13:07)
--- NOTE | 2022-08-29 13:11 | ED Physician Documentation ---
History of Present Illness - Stated complaint Stated Complaint: SHOULDER/ABD/CP - Additonal information Additional information: 66-year-old male presents to the emergency department by EMS for uncontrolled abdominal chest and shoulder pain. This has been ongoing for quite some time. This gentleman was unfortunately diagnosed with metastatic cancer throughout his lungs in May 2022. It is unclear why the patient has not yet followed up with his primary care or oncology. He states he does not have the number and they do not call him back. He was last seen in this emergency department 1 week ago for uncontrolled pain and was discharged with oxycodone. He states that he went through the 14 tablets in 3 days and has had uncontrolled pain since with nausea but no vomiting. He did receive some fentanyl via EMS with poor relief of symptoms. Review of Systems Constitutional: denies: Fever, Chills Musculoskeletal: reports: Other (chest, absominal shoulder and bone pain) PD PAST MEDICAL HISTORY - Past Medical History Cardiovascular: Hypertension, High cholesterol, Coronary artery disease, [place] Respiratory: Sleep apnea Endocrine/Autoimmune: None GI: GERD : None HEENT: None Psych: None Musculoskeletal: Chronic back pain Derm: None - Past Surgical History Past Surgical History: Yes Ortho: Spine surgery Cardiovascular: Coronary stent - Present Medications Home Medications: Ambulatory Orders Medication Instructions Recorded Confirmed Aspirin EC [Ecotrin] 81 mg PO DAILY #30 tablet 09/21/20 10/24/20 Atorvastatin [Lipitor] 40 mg PO QPM #30 tablet 09/21/20 10/24/20 Blood Sugar Diagnostic [Glucose 1 each MC DAILY #30 strip 09/21/20 10/24/20 Test Strip] Blood-Glucose Meter [Glucometer] 1 each MC DAILY #1 each 09/21/20 10/24/20 Fenofibrate [Tricor] 134 mg PO DAILY #30 tablet 09/21/20 10/24/20 Lancets 1 each MC DAILY #30 each 09/21/20 10/24/20 Metoprolol Succinate [Toprol Xl] 25 mg PO DAILY #30 tablet 09/21/20 10/24/20 metFORMIN [Glucophage] 500 mg PO BIDWM #60 tablet 09/21/20 10/24/20 oxyCODONE [Roxicodone] 5 mg PO Q8HR PRN #20 tablet 09/21/20 10/24/20 Pantoprazole [Protonix] 40 mg PO DAILY #14 tablet 09/22/20 10/24/20 Oxycodone HCl/Acetaminophen 1 - 2 each PO Q6H PRN #20 tablet 06/25/22 [Percocet 5-325 mg Tablet] HYDROcod/ACETAM 5/325 [Kinney 5/325] 1 - 2 tablet PO Q6H PRN #14 tablet 07/23/22 oxyCODONE [Roxicodone] 5 - 10 mg PO Q6H PRN #14 tablet 08/22/22 MDD 6 Ondansetron Odt [Zofran] 4 mg TL Q6H PRN #20 tablet 08/29/22 oxyCODONE [Roxicodone] 5 mg PO TID PRN #30 tablet 08/29/22 polyethylene glycoL 3350(BULK) 17 gm PO DAILY PRN #1 each 08/29/22 [Miralax] - Allergies Allergies/Adverse Reactions: Allergies Allergy/AdvReac Type Severity Reaction Status Date / Time No Known Drug Allergies Allergy Verified 08/22/22 18:36 - Social History Does the pt smoke?: Yes Smoking Status: Current every day smoker Does the pt drink ETOH?: No Does the pt have substance abuse?: No - Immunizations Immunizations are current?: No Immunizations: TDAP >10years/unknown - POLST Patient has POLST: No PD ED PE EXPANDED - General General: Alert, In Pain - Cardiac Cardiac: Regular Rate, Radial strong equal, Pedal strong equal, Cap refill < 2 sec. No: Murmur Present - Respiratory Respiratory: Clear to ausultation daisy. No: Labored - Abdomen Abdomen: Normal Bowel sounds. No: Tender to palpation - Derm Derm: Jaundiced Results - Vitals Vitals: Vital Signs - 24 hr 08/29/22 13:08 Temperature 36.6 C Heart Rate 117 H Respiratory 16 Rate Blood Pressure 149/89 H O2 Saturation 97 Oxygen O2 Source Room air - Labs Labs: Laboratory Tests 08/29/22 08/29/22 13:25 13:25 WBC 4.5 L RBC 5.56 Hgb 15.8 Hct 47.0 MCV 84.5 MCH 28.4 MCHC 33.6 RDW 14.3 Plt Count 86 L MPV 11.0 Neut # (Auto) 3.0 Lymph # (Auto) 0.8 L [place] # (Auto) 0.6 Eos # (Auto) 0.0 Baso # (Auto) 0.1 Absolute Nucleated RBC 0.02 Nucleated RBC % 0.4 Sodium 137 Potassium 3.4 L Chloride 103 Carbon Dioxide 22 Anion Gap 12.0 BUN 11 Creatinine 0.9 Estimated GFR (MDRD) 84 L Glucose 124 H Calcium 8.9 Total Bilirubin 8.7 H AST 148 H ALT 79 H Alkaline Phosphatase 313 H Total Protein 6.2 L Albumin 2.7 L Globulin 3.5 Albumin/Globulin Ratio 0.8 L Lipase 93 H PD Medical Decision Making - ED course Complexity details: reviewed results, re-evaluated patient, considered differential, d/w patient ED course: 66-year-old male with known metastatic cancer presents to the emergency department with diffuse uncontrolled abdominal chest and shoulder pain. Seen in this emergency department about 1 week ago for similar and was discharged with prescription for Oxy codon. It is not clear why but the patient has not properly followed with his primary care provider nor has he yet established with an oncologist. Patient reports to me that his primary care doctor wrote a referral to our [facility] clinic on August 25. The patient has not yet been able to establish an appointment. I am encouraging him to call tomorrow to do this. On presentation he appears mildly jaundiced and reports diffuse pain especially in his left shoulder chest and abdomen. He does have some mild tachycardia but no hypotension over fever. His abdominal exam was without peritoneal signs and was generally benign overall. We did obtain a CBC and electrolytes today. There was no leukocytosis. He does have clear worsening of his transaminases. Clinically without abdominal pain or vomiting I am less suspicious for an acute gallbladder disorder however in review of the imaging with the diffuse liver lesions the transaminases are not unexpected. I discussed with the patient it is important that he follow closely with the [facility] and I have given him the number in order to do that. Here in the emergency department the patient was administered 1 mg of Dilaudid IV twice as well as an oral dose of oxycodone and on reevaluation he is feeling better. I have sent a prescription for further oxycodone to the [facility] in [place]. Departure - Departure Disposition: 01 Home, Self Care Clinical Impression: Metastatic cancer Qualifiers: Area of secondary neoplastic involvement: unspecified site Qualified Code(s): C79.9 - Secondary malignant neoplasm of unspecified site Condition: Poor Follow-Up: OWEN MAYO DO [Physician No Access] - Prescriptions: polyethylene glycoL 3350(BULK) [Miralax] 17 gm PO DAILY PRN #1 each PRN Reason: Constipation oxyCODONE [Roxicodone] 5 mg PO TID PRN #30 tablet PRN Reason: Pain Ondansetron Odt [Zofran] 4 mg TL Q6H PRN #20 tablet PRN Reason: Nausea / Vomiting Comments: You came to the emergency department today because you have uncontrolled pain. Unfortunately you do have diffuse extensive metastatic cancer. It is critical that you continue to follow-up with your primary care doctor as well as the medical oncology unit that you were referred to. You tell me that your primary doctor made a referral to our [facility] clinic on 25 August. I encourage you to call them tomorrow to arrange prompt follow-up. You can call the hospital directly [phone] and asked to be referred to the oncology clinic so that you can arrange follow-up. I have sent a prescription for some further oxycodone to the [facility] in [place]. I have also sent a prescription for Zofran and nausea medicine to help improve your nausea. I suspect that you are getting constipated. I encourage you also to take MiraLAX each day to help reduce your constipation.
[2022-08-29] MEDS ORDERED: SODIUM CHLORIDE 0.9% 1,000 ML IV STA (13:12)
--- OUTSIDE RECORDS SUMMARY | 2022-08-29 13:16 | EXTERNAL MEDICAL SUMMARY RPT | Continuity of Care Document ---
:1955 Author Organization [facility] Address [address] [place] [address] Phone Care Team Providers Name Role Phone Unavailable Unavailable Unavailable Fausto Padgett Unavailable Unavailable Allergies No information. Encounters No information. Functional Status No information. Immunizations No information. Medications No information. Problems date description facility 2022-06-03 23:45 Chest pain, unspecified [facility] 2022-08-06 00:00 Hyperlipidemia [facility] 2022-08-06 00:00 Benign essential hypertension [facility]02 Chest pain, unspecified [facility] Procedures No information. Results/Labs test date author facility value unit interpret ation Result panel 1 (unknown) (no date) (unknown) Walk-In (no value) (units ([facility]own[facility] Result panel 2 (unknown) (no date) (unknown) Walk-In (no value) (units ([facility] nown[facility] Result panel 3 (unknown) (no date) (unknown) Walk-In (no value) (units ([facility] nown[facility] Result panel 4 (unknown) (no date) (unknown) Walk-In (no value) [facility]units [facility] nown[facility] Result panel 5 (unknown) (no date) (unknown) Walk-In (no value) (units ([facility] nown) [facility] Result panel 6 (unknown) (no date) (unknown) Walk-In (no value) [facility] ([facility] nown) [facility] Result panel 7 (unknown) (no date) (unknown) Walk-In (no value) [facility]own[facility] Result panel 8 (unknown) (no date) (unknown) Walk[facility]In (no value) [facility] ([facility]own[facility] Result panel 9 (unknown) (no date) (unknown) Walk[facility] (no value) [facility]own[facility] Result panel 10 (unknown) (no date) (unknown) Walk-In (no value) [facility] ([facility] nown[facility] Result panel 11 (unknown) (no date) (unknown) Walk-In (no value) ([facility] ([facility]own[facility] Result panel 12 (unknown) (no date) (unknown) Walk[facility]In (no value) [facility] ([facility]own[facility] Result panel 13 (unknown) (no date) (unknown) Walk-In (no value) (units ([facility] nown) [facility] Result panel 14 (unknown) (no date) (unknown) Walk-In (no value) [facility]units ([facility] nown) [facility] Result panel 15 (unknown) (no date) (unknown) Walk-In (no value) [facility] ([facility]own) [facility] Result panel 16 (unknown) (no date) (unknown) Walk-In (no value) (units ([facility]own[facility] Result panel 17 (unknown) (no date) (unknown) Walk-In (no value) [facility]units ([facility]own[facility] Result panel 18 (unknown) (no date) (unknown) Walk-In (no value) [facility] ([facility]own[facility] Result panel 19 (unknown) (no date) (unknown) Walk-In (no value) [facility]units ([facility]own[facility] Result panel 20 (unknown) (no date) (unknown) Walk-In (no value) [facility]units [facility]own[facility] Result panel 21 (unknown) (no date) (unknown) Walk-In (no value) [facility] ([facility]own[facility] Result panel 22 (unknown) (no date) (unknown) Walk-In (no value) ([facility] ([facility] nown[facility] Result panel 23 (unknown) (no date) (unknown) Walk-In (no value) [facility] ([facility]own[facility] Result panel 24 (unknown) (no date) (unknown) Walk-In (no value) (units ([facility]own) [facility] Result panel 25 (unknown) (no date) (unknown) Walk-In (no value) (units ([facility]own) [facility] Result panel 26 (unknown) (no date) (unknown) Walk-In (no value) (units ([facility]own) [facility] Result panel 27 (unknown) (no date) (unknown) Walk-In (no value) [facility] ([facility]own[facility] Result panel 28 (unknown) (no date) (unknown) Walk-In (no value) (units ([facility] nown) [facility] Result panel 29 (unknown) (no date) (unknown) Walk-In (no value) [facility] ([facility]own) [facility] Result panel 30 (unknown) (no date) (unknown) Walk-In (no value) [facility] ([facility] nown) [facility] Result panel 31 (unknown) (no date) (unknown) Walk-In (no value) (units ([facility] nown[facility] Result panel 32 (unknown) (no date) (unknown) Walk-In (no value) [facility] ([facility] nown[facility] Result panel 33 (unknown) (no date) (unknown) Walk-In (no value) [facility] ([facility] nown[facility] Result panel 34 (unknown) (no date) (unknown) Walk-In (no value) ([facility] ([facility] nown[facility] Result panel 35 (unknown) (no date) (unknown) Walk-In (no value) [facility] ([facility]own[facility] Result panel 36 (unknown) (no date) (unknown) Walk-In (no value) ([facility]own[facility] Result panel 37 (unknown) (no date) (unknown) Walk-In (no value) [facility]own[facility] Result panel 38 (unknown) (no date) (unknown) Walk-In (no value) [facility]own[facility] Result panel 39 (unknown) (no date) (unknown) Walk-In (no value) ([facility] nown[facility] Result panel 40 (unknown) (no date) (unknown) Walk-In (no value) [facility] nown[facility] Result panel 41 (unknown) (no date) (unknown) Walk-In (no value) [facility] nown[facility] Result panel 42 (unknown) (no date) (unknown) Walk-In (no value) (units ([facility] nown) [facility] Result panel 43 (unknown) (no date) (unknown) Walk-In (no value) (units ([facility] nown) [facility] Result panel 44 (unknown) (no date) (unknown) Walk-In (no value) (units ([facility] nown) [facility] Result panel 45 (unknown) (no date) (unknown) Walk-In (no value) (units ([facility] nown) [facility] Result panel 46 (unknown) (no date) (unknown) Walk-In (no value) (units ([facility] nown) [facility] Result panel 47 (unknown) (no date) (unknown) Walk-In (no value) [facility]units ([facility] nown[facility] Result panel 48 (unknown) (no date) (unknown) Walk-In (no value) ([facility] ([facility] nown) [facility] Result panel 49 (unknown) (no date) (unknown) Walk-In (no value) [facility] ([facility] nown) [facility] Result panel 50 (unknown) (no date) (unknown) Walk-In (no value) ([facility] ([facility] nown[facility] Result panel 51 (unknown) (no date) (unknown) Walk-In (no value) [facility]units [facility] nown) [facility] Result panel 52 (unknown) (no date) (unknown) Walk-In (no value) ([facility] ([facility] nown) [facility] Result panel 53 (unknown) (no date) (unknown) Walk-In (no value) (units ([facility] nown) [facility] Result panel 54 (unknown) (no date) (unknown) Walk-In (no value) ([facility] nown) [facility] Result panel 55 (unknown) (no date) (unknown) Walk-In (no value) ([facility] ([facility] nown) [facility] Result panel 56 (unknown) (no date) (unknown) Walk-In (no value) (units ([facility] nown) [facility] Result panel 57 (unknown) (no date) (unknown) Walk-In (no value) [facility] nown[facility] Result panel 58 (unknown) (no date) (unknown) Walk-In (no value) [facility] nown) [facility] Result panel 59 (unknown) (no date) (unknown) Walk-In (no value) (units ([facility] nown) [facility] Result panel 60 (unknown) (no date) (unknown) Walk-In (no value) [facility]units [facility] nown) [facility] Result panel 61 (unknown) (no date) (unknown) Walk-In (no value) (units ([facility] nown) [facility] Result panel 62 (unknown) (no date) (unknown) Walk-In (no value) [facility]units ([facility] nown) [facility] Result panel 63 (unknown) (no date) (unknown) Walk-In (no value) (units ([facility] nown) [facility] Result panel 64 (unknown) (no date) (unknown) Walk-In (no value) (units ([facility] nown) [facility] Result panel 65 (unknown) (no date) (unknown) Walk-In (no value) (units ([facility] nown) [facility] Result panel 66 (unknown) (no date) (unknown) Walk-In (no value) (units ([facility] nown) [facility] Result panel 67 (unknown) (no date) (unknown) Walk-In (no value) (units ([facility] nown) [facility] Result panel 68 (unknown) (no date) (unknown) Walk-In (no value) (units ([facility] nown) [facility] Result panel 69 (unknown) (no date) (unknown) Walk-In (no value) (units ([facility] nown) [facility] Result panel 70 (unknown) (no date) (unknown) Walk-In (no value) (units ([facility] nown) [facility] Result panel 71 (unknown) (no date) (unknown) Walk-In (no value) (units ([facility] nown) [facility] Result panel 72 (unknown) (no date) (unknown) Walk-In (no value) (units ([facility] nown) [facility] Result panel 73 (unknown) (no date) (unknown) Walk-In (no value) (units ([facility] nown) [facility] Result panel 74 (unknown) (no date) (unknown) Walk-In (no value) (units ([facility] nown) [facility] Result panel 75 (unknown) (no date) (unknown) Walk-In (no value) (units ([facility] nown) [facility] Result panel 76 (unknown) (no date) (unknown) Walk-In (no value) (units ([facility] nown) [facility] Result panel 77 (unknown) (no date) (unknown) Walk-In (no value) (units ([facility] nown) [facility] Result panel 78 (unknown) (no date) (unknown) Walk-In (no value) (units ([facility] nown) [facility] Result panel 79 (unknown) (no date) (unknown) Walk-In (no value) (units (unk nown) [facility] Result panel 80 (unknown) (no date) (unknown) Walk-In (no value) (units (unk nown) [facility] Result panel 81 (unknown) (no date) (unknown) Walk-In (no value) (units (unk nown) [facility] Result panel 82 (unknown) (no date) (unknown) Walk-In (no value) (units (unk nown) [facility] Result panel 83 (unknown) (no date) (unknown) Walk-In (no value) (units (unk nown) [facility] Result panel 84 (unknown) (no (unknown) (unknown) (no value) (units (unk nown) date) unknown) (unknown) (no (unknown) (unknown) 08/02/22 (units (unkno wn) date) unknown) (unknown) (no (unknown) (unknown) 2046 (units (unkno wn) date) unknown) (unknown) (no (unknown) (unknown) 66 year old male (units (unknown) date) presents to unknown) clinic for several concerns. (unknown) (no (unknown) (unknown) Age/Sex: 66 / M (units (unknown) date) Date of Service: unknown) (unknown) (no (unknown) (unknown) Allergies (units (unkn own) date) unknown) (unknown) (no (unknown) (unknown) [facility] [place] (units ( unknown) date) [id number] unknown) (unknown) (no (unknown) (unknown) Attending Dr: (units ( unknown) date) Eduardo Singletary D.O. 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 (unknown) (no (unknown) (unknown) Age/Sex: 66 / M (units (unknown) date) Date of Service: unknown) (unknown) (no (unknown) (unknown) Allergies (units (unkn own) date) unknown) (unknown) (no (unknown) (unknown) [facility] [place] (units ( unknown) date) [id number] unknown) (unknown) (no (unknown) (unknown) Attending Dr: (units ( unknown) date) Eduardo Singletary D.O. unknown) (unknown) (no (unknown) (unknown) BP 160/90 H (units (un known) date) unknown) (unknown) (no (unknown) (unknown) Blood Pressure (units (unknown) date) Location Lt unknown) brachial (unknown) (no (unknown) (unknown) Coronary artery (units (unknown) date) disease unknown) (unknown) (no (unknown) (unknown) : 1955 (units (unknown) date) Acct:[id number] unknown) (unknown) (no (unknown) (unknown) Dept at [...] (unkno wn) date) Aquilino Chanvan MR#: unknown) [id number] (unknown) (no (unknown) (unknown) Position Sitting (units [...] (unknown) (unknown) Visit Reasons: (units (unknown) date) [employer] Hx of unknown) cancer,coronary artery disease, diabetes [...] unknown) 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, 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 Result panel 86 (unknown) (no (unknown) (unknown) (no value) (units [...] (unknown) [facility] [place] (units ( unknown) date) [id number] unknown) (unknown) (no (unknown) (unknown) Attending Dr: (units ( unknown) date) Eduardo Singletary DAdrianOAdrian unknown) (unknown) (no (unknown) (unknown) BMI 27.8 (units (unkno wn) date) unknown) (unknown) (no (unknown) (unknown) BP 160/90 H (units (un known) date) unknown) (unknown) (no (unknown) (unknown) Blood Pressure (units (unknown) date) Location Lt unknown) brachial (unknown) (no (unknown) (unknown) Coronary artery (units (unknown) date) disease unknown) (unknown) (no (unknown) (unknown) : 1955 (units (unknown) date) Acct:[id number] unknown) (unknown) (no (unknown) (unknown) Dept at [...] (unkno wn) date) Frank Chan MR#: unknown) [id number] (unknown) (no (unknown) (unknown) Position Sitting (units [...] (Reviewed unknown) 05/28/22 @ 23:59 by Pat Vgea DO) (unknown) (no (unknown) (unknown) Temp 97.4 [...] (unknown) (unknown) Visit Reasons: (units (unknown) date) [employer] Hx of unknown) cancer,coronary artery disease, diabetes [...] unknown) 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, 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 Result panel 87 (unknown) (no (unknown) (unknown) (no value) (units [...] (unknown) [facility] (units ( unknown) date) [id number] unknown) (unknown) (no (unknown) (unknown) Attending Dr: [...] (unknown) (unknown) : 1955 (units (unknown) date) Acct:[id number] unknown) (unknown) (no (unknown) (unknown) Dept at [...] (unkno wn) date) Frank Chan MR#: unknown) [id number] (unknown) (no (unknown) (unknown) Position Sitting (units [...] (unknown) (unknown) Visit Reasons: (units (unknown) date) [employer] Hx of unknown) cancer,coronary artery disease, diabetes [...] unknown) 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, 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 Result panel 88 (unknown) (no (unknown) (unknown) (no value) (units [...] own) date) unknown) (unknown) (no (unknown) (unknown) [place], [place] (units ( unknown) date) [id number] unknown) (unknown) (no (unknown) (unknown) Assessment + Plan (units (unknown) date) unknown) (unknown) (no (unknown) (unknown) Attending Dr: Eduardo (units (unknown) date) Hayder Ramos.OAdrian unknown) (unknown) (no (unknown) (unknown) BMI 27.8 [...] (unknown) (unknown) : 1955 (units (unknown) date) Acct:[id number] unknown) (unknown) (no (unknown) (unknown) Dept at [...] (unkno wn) date) Frank Chan MR#: unknown) [id number] (unknown) (no (unknown) (unknown) Position Sitting (units [...] unknown) (unknown) (no (unknown) (unknown) 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 (units (unkno wn) date) Discussed the unknown) [...] date) Reviewed unknown) (unknown) (no (unknown) (unknown) [place], [place] (units ( unknown) date) [id number] unknown) (unknown) (no (unknown) (unknown) Artery/Lesion (units ( unknown) date) type: [place] unknown) artery [place] vs. 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) Hx of unknown) cancer,coronary [...] (unknown) heart disease of (units (unknown) date) [place] coronary unknown) artery without angina pectoris, M25.512 [...] succinate ER unknown) (unknown) (no (unknown) (unknown) [place] coronary (units (unknown) date) artery without unknown) [...] unknown) 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, 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 (unknown) (no (unknown) (unknown) states that [...] He states Social History date description facility 2022-08-06 00:00 Smokes tobacco daily ([facility] Vital Signs date measurement value units 2022-08-06 00:00 BMI 27.8 kg/m2 2022-08-06 00:00 BP_diastolic 90 mmHg 2022-08-06 00:00 BP_systolic 160 mmHg 2022-08-06 00:00 heart_rate 110 /min 2022-08-06 00:00 height_metric 172.72 cm 2022-08-06 00:00 height_standard 68 in 2022-08-06 00:00 o2_saturation 99 % 2022-08-06 00:00 temperature_metric 36.33 C 2022-08-06 00:00 temperature_standard 97.4 F 2022-08-06 00:00 weight_metric 83 kg 2022-08-06 00:00 weight_standard 182.98 lb
[2022-08-29 13:32] LABS: BASOPHILS # (AUTO) 0.1 10^3/uL (0.0-0.1); BASOPHILS % (AUTO) 1.1 %; EOSINOPHILS % (AUTO) 0.4 %; HGB - HEMOGLOBIN 15.8 g/dL (14.0-18.0); LYMPHOCYTES # (AUTO) 0.8 10^3/uL (1.5-3.5); LYMPHOCYTES % (AUTO) 18.1 %; MEAN CORPUSCULAR HEMOGLOBIN 28.4 pg (27.0-31.0); MEAN CORPUSCULAR HGB CONC 33.6 g/dL (32.0-36.0); MEAN CORPUSCULAR VOLUME 84.5 fL (80.0-94.0); MONOCYTES # (AUTO) 0.6 10^3/uL (0.0-1.0); MONOCYTES % (AUTO) 12.6 %; NEUTROPHILS % (AUTO) 66.5 %; NRBC ABSOLUTE COUNT (AUTO) 0.02 x10^3/uL; NUCLEATED RED BLOOD CELLS AUTO 0.4 /100WBC; PLT - PLATELET COUNT 86 10^3/uL (130-450); RED BLOOD COUNT 5.56 10^6/uL (4.70-6.10); RED CELL DISTRIBUTION WIDTH 14.3 % (12.0-15.0); WHITE BLOOD COUNT 4.5 x10^3/uL (4.8-10.8)
[2022-08-29 13:45] LABS: ALBUMIN 2.7 g/dL (3.2-5.5); ALBUMIN/GLOBULIN RATIO 0.8 (1.0-2.2); BILIRUBIN,TOTAL 8.7 mg/dL (0.2-1.0); CALCIUM 8.9 mg/dL (8.5-10.3); CREATININE 0.9 mg/dL (0.6-1.2); POTASSIUM 3.4 mmol/L (3.5-5.0); TOTAL PROTEIN 6.2 g/dL (6.7-8.2)
[2022-08-29] MEDS ORDERED: oxyCODONE 5 MG TABLET PO STA (14:27)
[2022-08-29 15:07] VITALS: BP 140/87
== END 2022-08-29 15:07 | disposition home or self-care (01) ==
LOC: EDUNIT# → ED 12:59
DX: C80.1 Malignant (primary) neoplasm, unspecified (principal); C78.00 Secondary malignant neoplasm of unspecified lung; F17.200 Nicotine dependence, unspecified, uncomplicated
CPT/HCPCS: 36415; 80053; 83690; 85025; 96361; 96374; 96375; 96376; 99284; A9270; J1170

== ENCOUNTER 2022-09-06 13:39 | Outpatient (CLI) | payer MEDICARE, MEDICAID | END 2022-09-06 13:40 | disposition short-term general hospital (02) | LOC: EMS 13:39 | DX: R53.1 Weakness (principal); R63.0 Anorexia; R42 Dizziness and giddiness; R11.0 Nausea; M25.512 Pain in left shoulder; R10.817 Generalized abdominal tenderness; I95.1 Orthostatic hypotension | CPT/HCPCS: A0425; A0427 ==